=== PATIENT | male | born 1965 | race Caucasian/White ===

== ENCOUNTER 2017-04-05 11:43 | Inpatient (IN) | payer OTHER ==
[2017-04-05] MEDS ORDERED: SODIUM CHLORIDE 0.9% 1,000 ML IV STA ×2 (12:07→12:33)
[2017-04-05] MEDS ORDERED: IPRATROPIUM-ALBUTEROL 3 ML NEB INHALATION STA (12:07)
--- NOTE | 2017-04-05 12:07 | ED ---
Weakness HPI - General Chief complaint: Weakness Stated complaint: SOB Time Seen by Provider: 04/05/17 11:43 Source: patient, EMS, RN notes reviewed Mode of arrival: EMS Limitations: no limitations - History of Present Illness Initial comments: This is a 51-year-old male who presents by EMS with complaints of 4-5 days of shortness of breath which is gotten worse he has chronic lower extremity edema but recently more so on the right than the left he has wept for a long time. He states now he isn't having some marked dyspnea with a cab exertion or try to standing or chest pain with standing. Also states he hasn't eaten for the last 2 days. He states when he tries a standing feel like his blackout. He is nonsmoker denies any fevers chills or sweats. He was noted by EMS have a heart rate of 1 6170 and later dropped down to about 140. MD Complaint: generalized weakness, difficulty walking - Related Data Home Medications Medication Instructions Recorded Confirmed Citalopram Hydrobromide [CeleXA] 40 mg PO DAILY 04/05/17 04/05/17 Naproxen Sodium [Aleve] 220 mg PO DAILY PRN 04/05/17 04/05/17 Allergies Allergy/AdvReac Type Severity Reaction Status Date / Time No Known Allergies Allergy Verified 04/05/17 11:59 Review of Systems ROS Statement: Those systems with pertinent positive or pertinent negative responses have been documented in the HPI. ROS Other: All systems not noted in ROS Statement are negative. Past Medical History History of Any Multi-Drug Resistant Organisms: None Reported Past Surgical History: Cholecystectomy, Hernia Repair Past Psychological History: Anxiety Smoking Status: Former smoker Past Alcohol Use History: None Reported Past Drug Use History: None Reported General Exam - General Exam Comments Initial Comments: This a well-developed well-nourished obese male Limitations: no limitations General appearance: alert, in no apparent distress Head exam: Present: atraumatic, normocephalic, normal inspection Eye exam: Present: normal appearance, PERRL, EOMI. Absent: scleral icterus, conjunctival injection, periorbital swelling ENT exam: Present: mucous membranes dry Neck exam: Present: normal inspection. Absent: tenderness, meningismus, lymphadenopathy Respiratory exam: Present: respiratory distress, decreased breath sounds. Absent: wheezes, rales, rhonchi, stridor Cardiovascular Exam: Present: normal rhythm, tachycardia. Absent: systolic murmur, diastolic murmur, rubs, gallop, clicks GI/Abdominal exam: Present: soft, normal bowel sounds, other (Obese abdomen). Absent: distended, tenderness, guarding, rebound, rigid Extremities exam: Present: full ROM, normal capillary refill, other (Stasis changes with weeping noted edema to her lower extremities right greater than left with some mild tenderness palpation. No definite palpable cords). Absent : tenderness, pedal edema, joint swelling, calf tenderness Back exam: Present: normal inspection Neurological exam: Present: alert, oriented X3, CN II-XII intact Psychiatric exam: Present: normal affect, normal mood Skin exam: Present: warm. 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 EKG Findings - EKG Results: EKG: interpreted by VILMA, sinus rhythm (Sinus tachycardia with a rate of 136 MI interval 138 QRS duration 80 QT/QTC of 370/[address]-T wave configuration there is evidence of an S-wave in lead 1 Q-wave in lead 3 with some T-wave inversion.) Medical Decision Making - Medical Decision Making I did discuss the findings with the patient he does demonstrate pulmonary emboli. Ultrasound does show evidence for clot behind the right knee. He will be admitted with cardiology consultation I did discuss case with Dr. Herndon. A stat echocardiogram has been ordered. Patient be admitted to the telemetry floor. Cardiology will also be consulted. - Lab Data Result diagrams: 04/05/17 11:55 04/05/17 11:55 Lab Results 04/05/17 04/05/17 04/05/17 Range/Units 11:55 11:55 11:55 WBC 13.0 H (3.8-10.6) k/uL RBC 5.59 (4.30-5.90) m/uL Hgb 17.0 (13.0-17.5) gm/dL Hct 53.3 H (39.0-53.0) % MCV 95.4 (80.0-100.0) fL MCH 30.4 (25.0-35.0) pg MCHC 31.8 (31.0-37.0) g/dL RDW 13.9 (11.5-15.5) % Plt Count 318 (150-450) k/uL Neutrophils % 74 % Lymphocytes % 16 % Monocytes % 6 % Eosinophils % 1 % Basophils % 1 % Neutrophils # 9.7 H (1.3-7.7) k/uL Lymphocytes # 2.1 (1.0-4.8) k/uL Monocytes # 0.8 (0-1.0) k/uL Eosinophils # 0.1 (0-0.7) k/uL Basophils # 0.1 (0-0.2) k/uL PT (9.0-12.0) sec INR (<1.1) APTT (22.0-30.0) sec D-Dimer (<0.60) mg/L FEU Sodium (137-145) mmol/L Potassium (3.5-5.1) mmol/L Chloride (98-107) mmol/L Carbon Dioxide (22-30) mmol/L Anion Gap mmol/L BUN (9-20) mg/dL Creatinine (0.66-1.25) mg/dL Est GFR (MDRD) Af Amer (>60 ml/min/1.73 sqM) Est GFR (MDRD) Non-Af (>60 ml/min/1.73 sqM) Glucose (74-99) mg/dL Plasma Lactic Acid Hermilo 4.2 H* (0.7-2.0) mmol/L Calcium (8.4-10.2) mg/dL Magnesium (1.6-2.3) mg/dL Total Bilirubin (0.2-1.3) mg/dL AST (17-59) U/L ALT (21-72) U/L Alkaline Phosphatase (38-126) U/L Total Creatine Kinase 65 (55-170) U/L CK-MB (CK-2) 1.3 (0.0-2.4) ng/mL CK-MB (CK-2) Rel Index 2.0 Troponin I 0.126 H* (0.000-0.034) ng/mL NT-Pro-B Natriuret Pep pg/mL Total Protein (6.3-8.2) g/dL Albumin (3.5-5.0) g/dL 04/05/17 04/05/17 04/05/17 Range/Units 11:55 11:55 11:55 WBC (3.8-10.6) k/uL RBC (4.30-5.90) m/uL Hgb (13.0-17.5) gm/dL Hct (39.0-53.0) % MCV (80.0-100.0) fL MCH (25.0-35.0) pg MCHC (31.0-37.0) g/dL RDW (11.5-15.5) % Plt Count (150-450) k/uL Neutrophils % % Lymphocytes % % Monocytes % % Eosinophils % % Basophils % % Neutrophils # (1.3-7.7) k/uL Lymphocytes # (1.0-4.8) k/uL Monocytes # (0-1.0) k/uL Eosinophils # (0-0.7) k/uL Basophils # (0-0.2) k/uL PT 12.3 H (9.0-12.0) sec INR 1.2 (<1.1) APTT 24.4 (22.0-30.0) sec D-Dimer 4.62 H (<0.60) mg/L FEU Sodium 142 (137-145) mmol/L Potassium 4.6 (3.5-5.1) mmol/L Chloride 106 (98-107) mmol/L Carbon Dioxide 17 L (22-30) mmol/L Anion Gap 19 mmol/L BUN 19 (9-20) mg/dL Creatinine 1.40 H (0.66-1.25) mg/dL Est GFR (MDRD) Af Amer >60 (>60 ml/min/1.73 sqM) Est GFR (MDRD) Non-Af 53 (>60 ml/min/1.73 sqM) Glucose 181 H (74-99) mg/dL Plasma Lactic Acid Hermilo (0.7-2.0) mmol/L Calcium 9.6 (8.4-10.2) mg/dL Magnesium 2.3 (1.6-2.3) mg/dL Total Bilirubin 1.1 (0.2-1.3) mg/dL AST 45 (17-59) U/L ALT 46 (21-72) U/L Alkaline Phosphatase 125 (38-126) U/L Total Creatine Kinase (55-170) U/L CK-MB (CK-2) (0.0-2.4) ng/mL CK-MB (CK-2) Rel Index Troponin I (0.000-0.034) ng/mL NT-Pro-B Natriuret Pep 6040 pg/mL Total Protein 8.7 H (6.3-8.2) g/dL Albumin 4.4 (3.5-5.0) g/dL - Radiology Data Radiology results: report reviewed (I did discuss the imaging and results with the radiologist. Patient does demonstrate bilateral pulmonary embolus.), image reviewed Critical Care Time Critical Care Time: Yes Critical Care Time: 43 minutes of critical care time which includes initial presentation with evaluation of the report from paramedics discussion with paramedics history physical labs x-rays. Discussion with radiologist discuss with the admitting physician discussion with the feather boner. Admission orders and documentation of the above. Disposition Clinical Impression: Pulmonary embolism, Pulmonary embolism, Congestive heart failure (CHF), Elevated troponin, DVT (deep venous thrombosis), Tachycardia Disposition: ADMITTED IP TO THIS HOSP Condition: Serious
[2017-04-05 12:14] LABS: Basophils # (A) 0.1 k/uL (0-0.2); Basophils % (A) 1 %; CHCM 32.6; Eosinophils # (A) 0.1 k/uL (0-0.7); Eosinophils % (A) 1 %; HCT 53.3 % (39.0-53.0); HDW 2.47; Luc # (Auto) 0.22; Luc % (Auto) 2; Lymphocytes # (A) 2.1 k/uL (1.0-4.8); Lymphocytes % (A) 16 %; MCH 30.4 pg (25.0-35.0); MCHC 31.8 g/dL (31.0-37.0); MCV 95.4 fL (80.0-100.0); Mean Platelet Volume 7.4; Monocytes # (A) 0.8 k/uL (0-1.0); Monocytes % (A) 6 %; Neutrophils # (A) 9.7 k/uL (1.3-7.7); Neutrophils % (A) 74 %; RBC 5.59 m/uL (4.30-5.90); RDW 13.9 % (11.5-15.5); WBC (Perox) 13.59
[2017-04-05 12:29] LABS: ALT 46 U/L (21-72); AST 45 U/L (17-59); Alkaline Phosphatase 125 U/L (38-126); Anion Gap 19 mmol/L; Blood Urea Nitrogen 19 mg/dL (9-20); Calcium 9.6 mg/dL (8.4-10.2); Carbon Dioxide 17 mmol/L (22-30); Chloride 106 mmol/L (98-107); Glucose 181 mg/dL (74-99); Magnesium 2.3 mg/dL (1.6-2.3); Non-African American GFR(MDRD) 53 (>60 ml/min/1.73 sqM); Potassium 4.6 mmol/L (3.5-5.1); Sodium 142 mmol/L (137-145); Total Bilirubin 1.1 mg/dL (0.2-1.3); Total Protein 8.7 g/dL (6.3-8.2)
[2017-04-05 12:30] LABS: INR 1.2 (<1.1); Partial Thromboplastin Time 24.4 sec (22.0-30.0); Prothrombin Time 12.3 sec (9.0-12.0)
[2017-04-05 12:49] LABS: Creatine Kinase MB 1.3 ng/mL (0.0-2.4)
[2017-04-05 12:53] LABS: Troponin I 0.126 ng/mL (0.000-0.034)
[2017-04-05] MEDS ORDERED: RX INFO: IV CONTRAST WAS GIVEN 1 EACH MISC MISCELLANE PRN (12:55)
--- NOTE | 2017-04-05 13:11 | XR ---
EXAMINATION TYPE: XR chest 2V DATE OF EXAM: 04/05/2017 1:04 PM COMPARISON: NONE HISTORY: Difficulty breathing TECHNIQUE: Frontal and lateral views of the chest are obtained. FINDINGS: There is no heart failure nor confluent pneumonic infiltrate. Heart appears enlarged. Ther e is no pleural effusion. There are no hilar masses. There are chest leads. IMPRESSION: Cardiomegaly. No active cardiopulmonary disease.
--- NOTE | 2017-04-05 13:47 | CT ---
EXAMINATION TYPE: CT angio chest DATE OF EXAM: 04/05/2017 1:36 PM COMPARISON: NONE HISTORY: Difficulty breathing CT DLP: 777.3 mGycm Automated exposure control for dose reduction was used. CONTRAST: CTA scan of the thorax is performed with IV Contrast, patient injected with 80 mL of Visipaque 320, p ulmonary embolism protocol. There are 3-D post processed images.. FINDINGS: The lungs are clear of consolidation. There is no evidence of a pulmonary mass. There is focal atelec tasis at the left posterior lung base. There are numerous filling defects in the lower lobe pulmonary arteries. These extend up to the right main pulmonary artery. There are also filling defects in the left upper lobe and right upper lobe pu lmonary arteries. The heart is enlarged. There is no pericardial effusion. There is no mediastinal ad enopathy. There are no hilar masses. IMPRESSION: EXTENSIVE BILATERAL LARGE PULMONARY EMBOLI. THIS EXAM WAS DISCUSSED WITH DR. TOMAS 1:45 PM.
[2017-04-05] MEDS ORDERED: HEPARIN SODIUM,PORCINE 5,000 UNIT/ML 1 ML VIAL IV STA (14:09)
[2017-04-05] MEDS: HEPARIN SODIUM,PORCINE/D5W PMX 25,000 UNIT in DEXTROSE/WATER 1 500ML.BAG IV SCH (14:44)
--- NOTE | 2017-04-05 15:17 | US ---
EXAMINATION TYPE: US venous doppler duplex LE DATE OF EXAM: 04/05/2017 2:58 PM COMPARISON: NONE CLINICAL HISTORY: Pain. Leg swelling, PE SIDE PERFORMED: Bilateral TECHNIQUE: The lower extremity deep venous system is examined utilizing real time linear array sonog shantell with graded compression, doppler sonography and color-flow sonography. VESSELS IMAGED: External Iliac Vein (EIV) Common Femoral Vein Deep Femoral Vein Greater Saphenous Vein * Femoral Vein Popliteal Vein Small Saphenous Vein * Proximal Calf Veins (* superficial vessels) Difficult, limited exam, morbidly obese pt Right Leg: +DVT Right Pop Vein Left Leg: Negative for DVT IMPRESSION: There is evidence of right popliteal vein acute deep venous thrombosis. No evidence of deep venous thrombosis in the left leg.
[2017-04-05] MEDS ORDERED: NALOXONE 0.4 MG/ML 1 ML VIAL IV PRN (15:31)
[2017-04-05] MEDS: IPRATROPIUM-ALBUTEROL 3 ML NEB INHALATION SCH ×2 (16:45→19:51)
[2017-04-05] MEDS ORDERED: METOPROLOL TARTRATE 5 MG/5 ML VIAL IVP ONE (16:51)
[2017-04-05] MEDS: NITROGLYCERIN OINT 1 INCH/GM PACKET TOPICAL SCH (17:07)
[2017-04-05] MEDS: FUROSEMIDE 10 MG/ML 4 ML VIAL IV SCH (17:11)
[2017-04-05] MEDS ORDERED: ONDANSETRON 4 MG/2 ML VIAL IVP PRN ×2 (17:25→17:26)
[2017-04-06] MEDS ORDERED: IPRATROPIUM-ALBUTEROL 3 ML NEB INHALATION PRN (00:02)
[2017-04-06] MEDS: INSULIN LISPRO (humaLOG) 300 UNIT/3 ML VIAL SQ SCH ×6 (02:06→21:10)
[2017-04-06] MEDS: FUROSEMIDE 10 MG/ML 4 ML VIAL IV SCH ×3 (02:07→16:19)
[2017-04-06] MEDS: PIPERACILLIN-TAZOBACTAM 3.375 GM in DEXTROSE/WATER 1 50ML.BAG IVPB SCH ×4 (02:08→20:44)
[2017-04-06] MEDS: SODIUM CHLORIDE 0.9% 1,000 ML IV SCH ×2 (02:08→16:20)
[2017-04-06 02:14] LABS: Glucose,Whole Blood 129 mg/dL (75-99)
[2017-04-06] MEDS: NITROGLYCERIN OINT 1 INCH/GM PACKET TOPICAL SCH ×4 (02:17→18:17)
[2017-04-06] MEDS: IPRATROPIUM-ALBUTEROL 3 ML NEB INHALATION SCH ×5 (02:20→20:30)
[2017-04-06 06:19] LABS: Glucose,Whole Blood 136 mg/dL (75-99)
[2017-04-06 06:28] LABS: Basophils # (A) 0.1 k/uL (0-0.2); Basophils % (A) 1 %; CH 30.7; CHCM 32.3; Eosinophils # (A) 0.1 k/uL (0-0.7); Eosinophils % (A) 1 %; HCT 44.3 % (39.0-53.0); HDW 2.47; HGB 14.2 gm/dL (13.0-17.5); Luc # (Auto) 0.25; Luc % (Auto) 2; Lymphocytes # (A) 2.1 k/uL (1.0-4.8); Lymphocytes % (A) 19 %; MCH 30.5 pg (25.0-35.0); MCV 95.3 fL (80.0-100.0); Mean Platelet Volume 7.5; Monocytes # (A) 0.9 k/uL (0-1.0); Monocytes % (A) 8 %; Neutrophils # (A) 7.7 k/uL (1.3-7.7); Neutrophils % (A) 69 %; RBC 4.65 m/uL (4.30-5.90); RDW 13.9 % (11.5-15.5); WBC 11.2 k/uL (3.8-10.6); WBC (Perox) 11.49
[2017-04-06 06:47] LABS: Anion Gap 11 mmol/L; Blood Urea Nitrogen 19 mg/dL (9-20); Calcium 8.5 mg/dL (8.4-10.2); Carbon Dioxide 26 mmol/L (22-30); Chloride 105 mmol/L (98-107); Glucose 126 mg/dL (74-99); Non-African American GFR(MDRD) 58 (>60 ml/min/1.73 sqM); Potassium 4.1 mmol/L (3.5-5.1); Sodium 142 mmol/L (137-145)
[2017-04-06] MEDS ORDERED: PANTOPRAZOLE 40 MG/10 ML VIAL IV SCH (09:00)
[2017-04-06] MEDS: CITALOPRAM HYDROBROMIDE 20 MG TAB PO SCH (09:26)
[2017-04-06] MEDS: HEPARIN SODIUM,PORCINE/D5W PMX 25,000 UNIT in DEXTROSE/WATER 1 500ML.BAG IV SCH ×2 (09:35→16:18)
--- NOTE | 2017-04-06 09:42 | ECHOF ---
Referral Reason:Pulmonary embolism MEASUREMENTS -------- HEIGHT: 157.5 cm WEIGHT: 162.4 kg BP: IVSd: 1.4 cm (0.6 - 1.1) LVIDd: 3.9 cm (3.9 - 5.3) LVPWd: 1.3 cm (0.6 - 1.1) LVIDs: 3.2 cm RVIDd: 4.3 cm (< 3.3) Ao Diam: 3.6 cm (2.0 - 3.7) LA Diam: 4.4 cm (2.7 - 3.8) AV Cusp: 2.2 cm (1.5 - 2.6) EPSS: 0.2 cm RAP: 15.00 mmHg RVSP: 72.83 mmHg MV EF SLOPE: 198.97 mm/s (70 - 150) MV EXCURSION: 20.61 mm (> 18.000) FINDINGS -------- Sinus rhythm. This was a technically adequate study. Morbid Obesity There is moderate concentric left ventricular hypertrophy. Overall left ventricular systolic function is low-normal with, an EF between 50 - 55 %. The right ventricle is severely enlarged. The right ventricular septal wall is flattened in diastole and systole which is consistent with right ventricular volume and pressure overload. The left atrial size is normal. The right atrial size is normal. There is mild aortic valve sclerosis. There is no evidence of aortic regurgitation. Mild mitral annular calcification present. No mitral regurgitation. Mild tricuspid regurgitation present. There is severe pulmonary hypertension. The right ventricular systolic pressure, as measured by Doppler, is 72.83mmHg. The pulmonic valve was not well visualized. The aortic root size is normal. Echo free space may represent effusion or a pericardial fat pad. CONCLUSIONS -------- 1. Morbid Obesity 2. There is severe pulmonary hypertension. 3. The right ventricular systolic pressure, as measured by Doppler, is 72.83mmHg. 4. The pulmonic valve was not well visualized. 5. Echo free space may represent effusion or a pericardial fat pad. 6. There is moderate concentric left ventricular hypertrophy. 7. Overall left ventricular systolic function is low-normal with, an EF between 50 - 55 %. 8. The right ventricle is severely enlarged. 9. The right ventricular septal wall is flattened in diastole and systole which is consistent with right ventricular volume and pressure overload. 10. There is mild aortic valve sclerosis. 11. Mild mitral annular calcification present. 12. No mitral regurgitation. 13. Mild tricuspid regurgitation present. WEB PROJECT MANAGER: Tiarra Gonzalez RDCS
--- NOTE | 2017-04-06 09:44 | P.CRDCN ---
History of Present Illness Consult date: 04/06/17 History of present illness: This is a 51-year-old gentleman with history of anxiety, obesity and chronic cellulitis of the legs was been experiencing increasing shortness of breath over the last several months. For the last couple of days patient has been having episodes of dizziness. Because of the ongoing symptoms patient came to the emergency room. Apparently while in the emergency room patient had a brief episode of syncope lasting a few seconds. Patient had a computed tomography scan of the chest which showed evidence of pulmonary emboli. Patient was started on heparin and was admitted to the hospital. He seemed to be fairly comfortable at this time. Denies any significant chest pain. He does complain of mild discomfort upon deep breathing. Patient has been sitting and sleeping in a recliner for a long time because of difficulty sleeping flat. Chest x-ray did not reveal any acute changes. Echocardiogram showed preserved LV function with a severe right ventricular dilatation and severe pulmonary hypertension. I would recommend continuation of current medical therapy. Repeat echocardiogram next week Review of Systems As per the chart Past Medical History Additional Past Medical History / Comment(s): x-smoker History of Any Multi-Drug Resistant Organisms: None Reported Past Surgical History: Cholecystectomy, Hernia Repair Past Anesthesia/Blood Transfusion Reactions: No Reported Reaction Past Psychological History: Anxiety Smoking Status: Former smoker Past Alcohol Use History: None Reported Past Drug Use History: None Reported - Past Family History Brother(s) Family Medical History: Pulmonary Embolus Additional Family Medical History / Comment(s): CABG Medications and Allergies Home Medications Medication Instructions Recorded Confirmed Type Citalopram Hydrobromide [CeleXA] 40 mg PO DAILY 04/05/17 04/05/17 History Naproxen Sodium [Aleve] 220 mg PO DAILY PRN 04/05/17 04/05/17 History Allergies Allergy/AdvReac Type Severity Reaction Status Date / Time No Known Allergies Allergy Verified 04/05/17 11:59 Physical Exam Vitals: Vital Signs Temp Pulse Pulse Resp BP BP Pulse Ox 04/06/17 08:20 100 04/06/17 08:01 104 H 93 L 04/06/17 08:00 97.4 F L 18 123/70 93 L 04/06/17 04:00 99 18 123/79 92 L 04/06/17 00:00 107 H 18 121/76 93 L 04/05/17 20:02 120 H 04/05/17 20:00 116 H 18 129/69 04/05/17 19:52 120 H 04/05/17 18:54 97.4 F L 117 H 18 129/68 93 L 04/05/17 18:44 117 H 18 129/68 93 L 04/05/17 18:34 97.4 F L 110 H 22 144/69 93 L 04/05/17 18:04 117 H 18 136/73 91 L 04/05/17 17:22 116 H 18 170/83 99 04/05/17 16:52 134 H 04/05/17 16:45 135 H 04/05/17 16:03 132 H 18 145/86 96 Intake and Output 04/05/17 04/06/17 04/06/17 22:59 06:59 14:59 Intake Total 500 Output Total 400 Balance 100 Intake: Intake, IV Titration 500 Amount Heparin Sodium,Porcine/ 500 D5w Pmx 25,000 unit In Dextrose/Water 1 500ml. bag @ 14.1 UNITS/KG/HR 45 .93 mls/hr IV .[id number] [facility] Rx#:[id number] Output: Urine 400 Other: Voiding Method Urinal Weight 162.9 kg 167.2 kg GENERAL EXAM: Patient is alert and oriented and doesn't appear to be in any acute distress HEENT: Normocephalic. Normal reaction of pupils, equal size, normal range of extraocular motion. No erythema or exudates in the throat. NECK: No masses, no nuchal rigidity. CHEST: No chest wall deformity. LUNGS: Equal air entry . Diminished breath sounds at both bases HEART: S1 and S2 normal with no audible mumurs or gallops. Regular rhythm, femorals equal on both sides.. ABDOMEN: No hepatosplenomegaly, normal bowel sounds, no guarding or rigidity. SKIN: No rashes CENTRAL NERVOUS SYSTEM: No focal deficits. EXTREMITIES: Edema of the both legs with chronic cellulitis and excoriations Results 04/06/17 05:44 04/06/17 05:44 Cardiac Enzymes 04/06/17 04/06/17 Range/Units 00:19 05:44 Troponin I 0.109 H* 0.104 H* (0.000-0.034) ng/mL Coagulation 04/05/17 04/06/17 Range/Units 21:00 06:14 APTT 80.5 H 74.8 H (22.0-30.0) sec CBC 04/06/17 Range/Units 05:44 WBC 11.2 H (3.8-10.6) k/uL RBC 4.65 (4.30-5.90) m/uL Hgb 14.2 (13.0-17.5) gm/dL Hct 44.3 (39.0-53.0) % Plt Count 251 (150-450) k/uL Comprehensive Metabolic Panel 04/06/17 Range/Units 05:44 Sodium 142 (137-145) mmol/L Potassium 4.1 (3.5-5.1) mmol/L Chloride 105 (98-107) mmol/L Carbon Dioxide 26 (22-30) mmol/L BUN 19 (9-20) mg/dL Creatinine 1.30 H (0.66-1.25) mg/dL Glucose 126 H (74-99) mg/dL Calcium 8.5 (8.4-10.2) mg/dL Current Medications Generic Name Dose Route Start Last Admin Trade Name Freq PRN Reason Stop Dose Admin Albuterol/Ipratropium 3 ml 04/06/17 00:02 Duoneb 0.5 Mg-3 Mg/3 Ml Soln INHALATION RT-QID PRN Shortness Of Breath Or Wheezing Albuterol/Ipratropium 3 ml 04/06/17 08:00 04/06/17 08:00 Duoneb 0.5 Mg-3 Mg/3 Ml Soln INHALATION 3 ml RT-QID GIOVANNY Administration Citalopram Hydrobromide 40 mg 04/06/17 09:00 04/06/17 09:26 Celexa PO 40 mg DAILY GIOVANNY Administration Furosemide 40 mg 04/05/17 16:00 04/06/17 09:26 Lasix IV 40 mg Q8HR GIOVANNY Administration Heparin Sodium/Dextrose 25,000 500 mls @ 45.93 mls/hr 04/05/17 14:15 09:35 unit/ IV Solution IV Not Given .[id number] GIOVANNY Protocol 14.1 UNITS/KG/HR Sodium Chloride 1,000 mls @ 20 mls/hr 04/05/17 15:45 04/06/17 02:08 Saline 0.9% IV 20 mls/hr .Q24H GIOVANNY Administration Piperacillin/Tazobactam/ 50 mls @ 12.5 mls/hr 04/05/17 20:00 04/06/17 07:07 Dextrose 3.375 gm/ IV Solution IVPB Not Given Q8H [facility] Insulin Human Lispro 0 unit 04/05/17 17:30 04/06/17 07:27 Humalog SQ Not Given ACHS [facility] Protocol Miscellaneous Information 1 each 04/05/17 12:55 04/05/17 14:49 Rx Info: Iv Contrast Was Given MISCELLANE 04/07/17 12:55 1 each DAILY PRN Administration Per Protocol Naloxone HCl 0.2 mg 04/05/17 15:31 Narcan IV Q2M PRN Opioid Reversal Nitroglycerin 1 inch 04/05/17 18:00 04/06/17 07:07 Nitro-Bid Oint TOPICAL Not Given Q6HR [facility] Ondansetron HCl 4 mg 04/05/17 17:25 04/05/17 17:26 Zofran IVP 4 mg ONCE PRN Administration Nausea And Vomiting Ondansetron HCl 4 mg 04/05/17 17:26 Zofran IVP Q8HR PRN Nausea And Vomiting Pantoprazole Sodium 40 mg 04/06/17 09:00 04/06/17 09:27 Protonix IV 40 mg DAILY GIOVANNY Administration Intake and Output 04/05/17 04/06/17 04/06/17 22:59 06:59 14:59 Intake Total 500 Output Total 400 Balance 100 Intake: Intake, IV Titration 500 Amount Heparin Sodium,Porcine/ 500 D5w Pmx 25,000 unit In Dextrose/Water 1 500ml. bag @ 14.1 UNITS/KG/HR 45 .93 mls/hr IV .[id number] [facility] Rx#:[id number] Output: Urine 400 Other: Voiding Method Urinal Weight 162.9 kg 167.2 kg 04/06/17 05:44 04/06/17 05:44 EKG Interpretations (text) Sinus tachycardia Assessment and Plan (1) Obesity Status: Acute (2) DVT (deep venous thrombosis) Status: Acute (3) Elevated troponin Status: Acute (4) Pulmonary embolism Status: Acute (5) Chronic cellulitis Status: Acute Plan: Continue current treatment with anticoagulants. Diuretics and antibiotics to be continued. Repeat echocardiogram next week. Further recommendations depend upon the clinical course
[2017-04-06 11:24] LABS: Hemoglobin A1C 5.5 % (4.2-6.1)
[2017-04-06 11:47] LABS: Glucose,Whole Blood 135 mg/dL (75-99)
--- NOTE | 2017-04-06 15:39 | HP ---
DATE OF ADMISSION: CHIEF COMPLAINT: Short of breath. HISTORY OF PRESENT ILLNESS: Mr. Rowley is a 51-year-old male with a known history of bilateral lower extremity lymphedema, depression, who came to the ER with complaints of shortness of breath for the past 4 to 5 days. Patient is also complaining of dizziness. Denied any complaints of chest pain. Patient came to the hospital for evaluation. Patient has been having bilateral lower extremity lymphedema for the past 4 to 5 years. His lower extremity edema is also getting worse, right more than left. Patient was also having exertional shortness of breath. He also says that he has not eaten for the past 2 days. When he tries to stand he feels like blacking out. Patient denied any fever, chills. No recent illnesses. Patient is unable to lay flat on the back. No history of diaphoresis. Patient was also tachycardic when the EMS picked him up. Patient had a CT angiogram of the chest done, which showed extensive bilateral large pulmonary emboli. Patient was started on heparin drip and patient also having lactic acidosis. Patient is on IV fluids as well. REVIEW OF SYSTEMS: CONSTITUTIONAL: No fever. No chills. No weakness, malaise. RESPIRATORY: No cough or sputum production. Patient does have short of breath and exertional short of breath. CARDIOVASCULAR: Chest pain and dizziness and worsening leg swelling. ABDOMEN: No nausea, vomiting, or abdominal pain. No diarrhea. GENITOURINARY: Negative. ENDOCRINE: Negative PSYCHIATRY: Negative. SKIN: Negative. All other fourteen-point review of systems negative except as above. PAST MEDICAL HISTORY: Bilateral lower lymphedema and depression. PAST SURGICAL HISTORY: Cholecystectomy and hernia repair. PSYCHOSOCIAL HISTORY: Anxiety. SOCIAL HISTORY: Patient is a former smoker; quit smoking several years ago. Denied any alcohol use. Denied any drugs or IVDU. FAMILY HISTORY: Denied any history of hypertension or diabetes mellitus or history of blood clots in the family. ALLERGIES: No known drug allergies. Home medications include: Celexa and Aleve. PHYSICAL EXAMINATION: A 51-year-old male lying in the bed comfortably, awake, alert, oriented, x3, appears to be in mild distress. VITALS: Blood pressure is 129/63, pulse is 116, respirations 18, temperature afebrile, pulse ox is 93% on 4-liters nasal cannula. HEENT: Atraumatic, normocephalic. Neck is supple. No JVD. CVS: S1, S2 heard. No murmurs, no gallop. LUNGS: Bilateral air entry is present. No wheezing noted. Nonlabored breathing. ABDOMEN: Soft, obese. Bowel sounds are present. 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 No focal deficits. EXTREMITIES: Bilateral lower extremity lymphedema right greater than left. PSYCHIATRIC: Cooperative. LABORATORY DATA: WBC 13.3, hemoglobin 17.0, platelets 319, D-dimer 4.62. INR 1.2. Sodium 142, potassium 4.2, chloride 106, bicarb is 17, BUN 19, creatinine 1.4, lactic acid 4.2, came down to 2.9. Troponin 0.126. NT-proBNP is 6040. IMPRESSION: 1. Acute bilateral large pulmonary emboli. 2. Acute right popliteal vein deep venous thrombosis. 3. Morbid obesity. 4. Bilateral lower extremity lymphedema. 5. Lactic acidosis. 6. Acute kidney injury. 7. Elevated troponin level, likely due to pulmonary emboli. 8. Elevated BNP. 9. History of depression. DISCUSSION AND PLAN: Patient is [id number] male who has not followed with primary care physician for the past 5 years, came to the hospital with complaints of dizziness and shortness of breath along with leg swelling, right greater than left. Patient was tachycardic on admission and hypoxic. Patient was found to have large pulmonary emboli. Will continue with the heparin IV. 2-D echocardiogram was ordered. Cardiology and Pulmonary have been consulted. Will continue with the heparin and follow up closely. Further recommendations based on clinical course.
[2017-04-06 17:20] LABS: Glucose,Whole Blood 135 mg/dL (75-99)
[2017-04-06] MEDS ORDERED: ACETAMINOPHEN TAB 325 MG TAB PO PRN (18:58)
[2017-04-06] MEDS: DIPHENOX-ATROP 2.5-0.025 MG 1 EACH TAB PO PRN (20:45)
[2017-04-06 20:54] LABS: Glucose,Whole Blood 119 mg/dL (75-99)
--- NOTE | 2017-04-06 22:18 | CONS ---
DATE OF CONSULTATION: 04/06/2017 This is a 51-year-old gentleman who apparently came to the emergency room complaining of 4 to 5 days' worth of increasing and progressive shortness of breath. In addition, he had worsening lower extremity edema. It was more right than left right-sided. He is not particularly active. He has been sleeping in a [place] for a number of years. He denies any recent long trips such as car rides, boat rides, plane rides or train rides or anything like that. He has had no trauma to the legs per se. No recent surgeries. The patient states that he came into the emergency room because of the leg swelling and shortness of breath. Some mild chest discomfort. No fever, no chills. No cough. No phlegm production. Feeling much better today than he did yesterday when he first came in. I was called by Dr. Gonzales in the emergency room and we discussed the case. His home medications include Celexa and Aleve. ALLERGIES: None. It should be pointed out, he has not been to a doctor in 10 or 11 years. The only doctor he sees is Dr. Manuel who is a psychiatrist who treats him for anxiety and depression. Medical history is otherwise unremarkable. Surgical history with previous hernia repair and cholecystectomy, although neither of those surgeries are recent. SOCIAL HISTORY: Positive for previous tobacco use. No alcohol use. No illicit drug use. FAMILY HISTORY: Noncontributory. OCCUPATIONAL HISTORY: Noncontributory. REVIEW OF SYSTEMS: CONSTITUTIONAL: Negative. NEUROLOGICAL: Negative. HEENT: Negative. CARDIOVASCULAR: Mild chest discomfort. PULMONARY: Shortness of breath. GI/: Negative. RHEUMATOLOGIC/IMMUNOLOGIC: Negative. ENDOCRINOLOGIC: Negative. Current vital signs include temperature 97.4, heart 99, respiratory rate 18, blood pressure 123/70, mean 87, 4 L saturation 93%. Feeling much much better today. He was always hemodynamically stable. His only issue was some tachycardia. No respiratory issues to speak of since he has been here. HEENT examination is grossly unremarkable. Mucous membranes are moist. No oral lesions. Neck is supple. Full range of motion. No adenopathy or thyromegaly. Cardiovascular examination reveals irregular rhythm and rate. His heart rate is about 90 beats per minute currently. S1, S2 normal. No murmur. He does not have pronounced second heart sound or the second component of the second heart sound is not pronounced. Lungs are clear. Breath sounds are equal. No wheezes, rhonchi or crackles. Abdomen is soft. Bowel sounds are heard. Extremities are intact. The right lower extremity is a bit more edematous than the left side. Some tenderness to palpation, particularly in the right popliteal space. Skin is without rash or lesion. Neurologic examination is nonfocal. Lab-weber, white count 11.2, hemoglobin 14.0, hematocrit 44.3, platelet count 351,000. His PTT is 75. D-dimer 4.62 PT 12.3. Sodium, potassium, chloride and CO2 normal. BUN and creatinine were 19 and 1.3. Plasma lactic acid was 2.9 initially. Troponins were 0.126 and 0.104. NT proBNP 6040. Albumin 4.4. The patient had a chest x-ray which showed cardiomegaly, but no active disease. He had a venous Doppler which showed no evidence of left-sided DVT, but there was a right-sided DVT in the right popliteal vein. CT angiogram showed evidence of extensive bilateral, large pulmonary emboli. There was no evidence of right heart strain. The interventricular septum did not shift. An echocardiogram showed severe pulmonary hypertension with a right ventricular systolic pressure estimated to be 73 mmHg. There was some moderate concentric left ventricular hypertrophy. Overall ejection fraction of 50 to 55%. The right ventricle was enlarged. The right ventricular septal wall was flat in diastole and systole, which was consistent with right ventricular volume and pressure overload. Medications are reviewed. He is on Celexa, Lasix, IV fluids, IV heparin, NovoLog sliding scale, updrafts with DuoNeb, nitroglycerin ointment, Zofran, Protonix, Zosyn and basic IV. I am not sure why the patient is on Zosyn and that can probably be discontinued. ASSESSMENT: 1. Bilateral pulmonary emboli. 2. Right-sided DVT involving the right popliteal vein. 3. No healthcare in the last 10 or 11 years. 4. History of anxiety and depression for which the patient sees a psychiatrist. PLAN: The patient is very stable. The patient was stable in the ER. We did consider thrombolytics. We do not have the echocardiogram until today. The patient, as I mentioned, was very stable. Blood pressure has always been good. At this point, I do not know if it worthwhile giving him a thrombolytic. The patient is clinically well. No breathing issues. His heart rate has come down very nicely. Will continue to follow closely. We did talk about treatment. I thought the patient should be treated for 6 months. Additional recommendations and suggestions are forthcoming.
[2017-04-07] MEDS: FUROSEMIDE 10 MG/ML 4 ML VIAL IV SCH ×3 (00:45→15:51)
[2017-04-07] MEDS: HEPARIN SODIUM,PORCINE/D5W PMX 25,000 UNIT in DEXTROSE/WATER 1 500ML.BAG IV SCH ×3 (00:46→21:00)
[2017-04-07] MEDS: NITROGLYCERIN OINT 1 INCH/GM PACKET TOPICAL SCH ×4 (00:55→17:14)
[2017-04-07] MEDS: PIPERACILLIN-TAZOBACTAM 3.375 GM in DEXTROSE/WATER 1 50ML.BAG IVPB SCH ×3 (05:21→20:59)
[2017-04-07] MEDS: DIPHENOX-ATROP 2.5-0.025 MG 1 EACH TAB PO PRN ×3 (05:26→20:59)
[2017-04-07 06:07] LABS: Basophils # (A) 0.1 k/uL (0-0.2); Basophils % (A) 1 %; CH 30.7; CHCM 32.1; Eosinophils # (A) 0.2 k/uL (0-0.7); Eosinophils % (A) 2 %; HCT 46.1 % (39.0-53.0); HDW 2.48; HGB 14.5 gm/dL (13.0-17.5); Luc # (Auto) 0.18; Luc % (Auto) 2; Lymphocytes # (A) 2.2 k/uL (1.0-4.8); Lymphocytes % (A) 21 %; MCH 30.3 pg (25.0-35.0); MCHC 31.5 g/dL (31.0-37.0); MCV 96.1 fL (80.0-100.0); Mean Platelet Volume 7.5; Monocytes # (A) 0.6 k/uL (0-1.0); Monocytes % (A) 6 %; Neutrophils % (A) 68 %; RDW 13.8 % (11.5-15.5); WBC 10.3 k/uL (3.8-10.6); WBC (Perox) 10.38
[2017-04-07 06:23] LABS: Glucose,Whole Blood 127 mg/dL (75-99)
[2017-04-07 06:29] LABS: Calcium 8.7 mg/dL (8.4-10.2); Potassium 4.1 mmol/L (3.5-5.1)
[2017-04-07] MEDS: INSULIN LISPRO (humaLOG) 300 UNIT/3 ML VIAL SQ SCH ×2 (06:29→12:29)
[2017-04-07] MEDS: PANTOPRAZOLE 40 MG TABLET PO SCH (06:34)
[2017-04-07] MEDS: CITALOPRAM HYDROBROMIDE 20 MG TAB PO SCH (08:10)
[2017-04-07] MEDS: IPRATROPIUM-ALBUTEROL 3 ML NEB INHALATION SCH ×6 (09:55→20:21)
[2017-04-07 10:01] VITALS: BMI 47.1
[2017-04-07 11:51] LABS: Glucose,Whole Blood 112 mg/dL (75-99)
--- NOTE | 2017-04-07 15:46 | P.PN ---
Subjective Morbidly obese 51-year-old male patient who presented with a increased shortness of breath. The patient had progressive dyspnea. The patient lives a sedentary lifestyle. He has chronic lower extremity edema and chronic venous stasis and some superficial ulceration of the skin. The patient underwent investigated further and as part of investigation CT angios the chest was done and the patient was found to have bilateral pulmonary emboli. In addition, the patient was found to have a right popliteal DVT that was acute based on the ultrasound Doppler of the lower extremities. There was no evidence of any DVT in the left lower extremity. The CAT scan of the chest showed extensive bilateral pulmonary emboli and the Echocardiogram of the heart showed strain pattern involving the right ventricle along with pulmonary hypertension. The PA pressure was 72. Ejection fraction was 50-45%. There is evidence of severe pulmonary hypertension. The patient was seen by Dr. Herndon on no recommendations were done for Mary lytics and the patient was placed on IV heparin. He is free of any chest pain. He is still tachycardic and is having some exertional dyspnea. His current heart rate is 105 and regular. Pulse ox is around 96% on 3 L of oxygen by nasal cannula. No personal history of DVT or pulmonary embolism. Objective - Vital Signs Vital signs: Vital Signs Temp 96 F L 04/07/17 08:00 Pulse 105 H 04/07/17 11:24 Resp 18 04/07/17 11:23 BP 115/69 04/07/17 11:23 Pulse Ox 96 04/07/17 11:23 Intake & Output 04/06/17 04/07/17 04/07/17 18:59 06:59 18:59 Intake Total 1062.206 390 Output Total 3975 800 Balance -3975 262.206 390 Weight 167.2 kg 166.6 kg 166.6 kg Intake: Intake, IV Titration 702.206 210 Amount Heparin Sodium,Porcine/ 652.206 D5w Pmx 25,000 unit In Dextrose/Water 1 500ml. bag @ 14.1 UNITS/KG/HR 45 .93 mls/hr IV .[id number] [facility] Rx#:[id number] Piperacillin-Tazobactam 3 50 50 .375 gm In Dextrose/Water 1 50ml.bag @ 12.5 mls/hr IVPB Q8H [facility] Rx#: [id number] Sodium Chloride 0.9% 1, 160 000 ml @ 20 mls/hr IV . Q24H [facility] Rx#:[id number] Oral 360 180 Output: Urine 3975 800 Other: Voiding Method Urinal Urinal # Voids 3 2 # Bowel Movements 1 - Exam Morbidly obese, comfortable and mild to moderate degree of respiratory distress with minimal amount of activity.Head exam was generally normal. There was no scleral icterus or corneal arcus. Mucous membranes were moist. Neck is short and supple and there is significant crowding of the posterior oropharynx. There is no goiter or neck masses. Lungs sounds are diminished in lung bases bilaterally otherwise they're distant. Heart sounds are regular and tachycardic , positive S1 and S2 and there is no significant murmurs appreciated. Abdomen is obese soft nontender and organs cannot be accurately palpated. Extremities show increased edema lower extremities bilaterally along with chronic venous stasis and superficial ulceration of the legs around the ankles bilaterally more so on the right. - Labs CBC & Chem 7: 04/07/17 05:42 04/07/17 05:42 Labs: Abnormal Lab Results - Last 24 Hours (Table) 04/06/17 04/06/17 04/07/17 Range/Units 17:06 20:51 05:42 APTT 59.6 H (22.0-30.0) sec Creatinine (0.66-1.25) mg/dL Glucose (74-99) mg/dL POC Glucose (mg/dL) 135 H 119 H (75-99) mg/dL 04/07/17 04/07/17 04/07/17 Range/Units 05:42 06:21 11:27 APTT (22.0-30.0) sec Creatinine 1.60 H (0.66-1.25) mg/dL Glucose 140 H (74-99) mg/dL POC Glucose (mg/dL) 127 H 112 H (75-99) mg/dL Assessment and Plan Plan: Assessment 1 Sub- massive bilateral pulmonary embolus with a right lower extremity DVT, currently on IV heparin 2 moderate to severe degree of secondary pulmonary hypertension and troponin leak secondary to pulmonary embolism 3 shortness of breath secondary to above 4 chronic venous stasis involving the lower extremity 5 sedentary lifestyle 6 chronic anxiety/depression Plan Ideally this patient could've been considered for thrombolytics. This has not been done at a time of admission. Slightly improved compared to yesterday. Continued IV heparin. Do not commit yet for oral anticoagulation until the patient's condition is slightly improved and we are absolutely sure that we are not going to use any form of thrombolytics over the next 24-48 hours. For that reason I think it's reasonable to delay oral anticoagulation for now. CAT scan was reviewed. Echocardiac Mehdi was noted. I'm thinking this patient will need long-term anticoagulation based on this sedentary lifestyle and dated other comorbidities.
[2017-04-07] MEDS: SODIUM CHLORIDE 0.9% 1,000 ML IV SCH (15:52)
--- NOTE | 2017-04-07 16:32 | PN ---
DATE OF SERVICE: 04/06/2017 Mr. Rowley is a 51-year-old male with known history of bilateral lower extremity lymphedema and depression admitted to the hospital with complaints of shortness of breath and dizziness and near syncope for the past 4 to 5 days. Patient was found to have a large pulmonary embolism and currently being treated with IV heparin. The patient symptomatically much improved today. No complaints of chest pain. No headache or dizziness or lightheadedness. No acute overnight issues. Patient being followed by pulmonary and cardiology. Complete review of systems negative except as above. CURRENT MEDICATIONS: Reviewed. PHYSICAL EXAMINATION: A 51-year-old male lying in bed comfortably, awake, alert, oriented x3, appears to be in no apparent distress. VITAL SIGNS: Blood pressure is 121/74, pulse is 108, respirations 20, temp ( ) HEENT: Atraumatic, normocephalic. Patient is morbidly obese. LUNGS: Bilateral air entry is present. No wheezing. No crackles. ABDOMEN: Soft, soft, obese. Bowel sounds present. MORTGAGE LOAN OFFICER: Alert and oriented x3. No focal deficits. EXTREMITIES: Bilateral lower extremity significant lymphedema. Pulses palpable. PSYCHIATRIC: Cooperative. SKIN: No rash or skin lesions. LABORATORY DATA: WBC 11.2, hemoglobin 14.2, platelets 251. Sodium 142, potassium 4.1, chloride 105, bicarbonate 26. BUN 19, creatinine 1.3. IMPRESSION: 1. Acute bilateral large pulmonary emboli. 2. Acute right popliteal vein deep venous thrombosis. 3. Morbid obesity. 4. Bilateral lower extremity lymphedema chronic. 5. Lactic acidosis, improved. 6. Acute kidney injury, improved. 7. Elevated troponin level likely due to pulmonary emboli. 8. Elevated BNP. 9. History of depression and anxiety. DISCUSSION AND PLAN: The patient will be continued on IV heparin. Will follow closely cardiac catheterization. Pulmonary and Cardiology are following this patient. Will continue the current management. The patient is symptomatically much improved now. Still tachycardic, which is improving as well.
[2017-04-08] MEDS: NITROGLYCERIN OINT 1 INCH/GM PACKET TOPICAL SCH ×5 (00:30→23:18)
[2017-04-08] MEDS: FUROSEMIDE 10 MG/ML 4 ML VIAL IV SCH ×4 (00:31→23:17)
[2017-04-08] MEDS: PIPERACILLIN-TAZOBACTAM 3.375 GM in DEXTROSE/WATER 1 50ML.BAG IVPB SCH ×3 (02:54→21:57)
[2017-04-08] MEDS: PANTOPRAZOLE 40 MG TABLET PO SCH (06:20)
[2017-04-08] MEDS: CITALOPRAM HYDROBROMIDE 20 MG TAB PO SCH (07:50)
[2017-04-08] MEDS: DIPHENOX-ATROP 2.5-0.025 MG 1 EACH TAB PO PRN ×2 (07:50→15:49)
[2017-04-08] MEDS: IPRATROPIUM-ALBUTEROL 3 ML NEB INHALATION SCH ×4 (08:42→20:21)
--- NOTE | 2017-04-08 11:40 | PN ---
DATE OF SERVICE: 04/07/2017 INTERVAL HISTORY: 51-year-old male with known history of bilateral lower extremity edema, chronic lymphedema and the patient was admitted to the hospital with complaints of dizziness, short of breath and near syncope, worsening for the past 4 to 5 days. Prior to admission, the patient was found to have a large pulmonary embolism, currently being treated with IV heparin and patient symptomatically much improved compared to yesterday. No complaints of chest pain now. Patient had a 2-D echocardiogram reviewed which showed severe pulmonary hypertension with systolic pressure up 72.83 mmHg. Right ventricle is severely dilated with flattening of the septal wall in diastole and systole which is consistent with right ventricular volume and pressure overload. Left ventricular systolic function is normal at 50 to 55% REVIEW OF SYSTEMS: CONSTITUTIONAL: No fever. No chills. RESPIRATORY: No cough. No sputum production. No short of breath. CARDIOVASCULAR: No chest pain. No short of breath. The patient does have chronic leg swelling. ABDOMEN: No nausea, vomiting or abdominal pain. GENITOURINARY: Negative. ENDOCRINE: Negative. PSYCHIATRIC: Negative. SKIN: Negative. All other 14 point review of systems negative except as above. CURRENT MEDICATIONS: Reviewed. PHYSICAL EXAMINATION: 51 -year-old male lying in bed comfortably, awake, alert and oriented times three, appears to be in no apparent distress. VITALS: Blood pressure is 101/75, pulse 102, respiratory rate 18. Temperature afebrile, pulse ox is 95% on 2 L nasal cannula. HEENT: Atraumatic, normocephalic. Neck is supple. No JVD. CVS: S1, S2 heard. No murmurs or gallop. LUNGS: Bilateral air entry is present. Diminished breath sounds basally. Nonlabored breathing. ABDOMEN: Soft, obese. Bowel sounds present. CENTRAL NERVOUS SYSTEM: Awake and alert times three. No focal deficits. EXTREMITIES: Bilateral lower extremity chronic lymphedema. Pulses palpable. No clubbing or cyanosis. PSYCHIATRIC: Cooperative. LABORATORY DATA: WBC 10.3, hemoglobin 14.5, platelets are 265. Sodium 141, potassium 4.1, chloride 100, bicarb is 28. BUN 18, creatinine 1.6. Blood sugar 114. Calcium level is 8.7. 2D echo report reviewed. IMPRESSION: 1. Acute bilateral large pulmonary embolism due to sedentary lifestyle. 2. Severe pulmonary hypertension with enlarged right ventricle along with flattening of the septum due to pressure effects from pulmonary embolism. 3. Morbid obesity. 4. Acute right popliteal vein deep venous thrombosis. 5. Bilateral lower extremity chronic lymphedema. 6. Lactic acidosis, improved. 7. Acute kidney injury. 8. Elevated troponins likely due to pulmonary emboli. 9. Elevated BNP. 10. History of depression and anxiety. DISCUSSION AND PLAN: Patient will be continued on heparin IV. Patient is improving symptomatically. We will continue with IV heparin now until patient recovers completely. The patient's tachycardia is much improved now. Pulmonary is following closely. Prognosis is guarded. The patient may need adjunct faculty for medical terminology anticoagulation.
--- NOTE | 2017-04-08 12:32 | P.PN ---
Subjective Morbidly obese 51-year-old male patient who presented with a increased shortness of breath. The patient had progressive dyspnea. The patient lives a sedentary lifestyle. He has chronic lower extremity edema and chronic venous stasis and some superficial ulceration of the skin. The patient underwent investigated further and as part of investigation CT angios the chest was done and the patient was found to have bilateral pulmonary emboli. In addition, the patient was found to have a right popliteal DVT that was acute based on the ultrasound Doppler of the lower extremities. There was no evidence of any DVT in the left lower extremity. The CAT scan of the chest showed extensive bilateral pulmonary emboli and the Echocardiogram of the heart showed strain pattern involving the right ventricle along with pulmonary hypertension. The PA pressure was 72. Ejection fraction was 50-45%. There is evidence of severe pulmonary hypertension. The patient was seen by Dr. Herndon on no recommendations were done for Mary lytics and the patient was placed on IV heparin. He is free of any chest pain. He is still tachycardic and is having some exertional dyspnea. His current heart rate is 105 and regular. Pulse ox is around 96% on 3 L of oxygen by nasal cannula. No personal history of DVT or pulmonary embolism. On 04/08/2017 the patient is feeling better. He is less short of breath compared to yesterday. He is still on IV heparin. No chest pain. No hemoptysis. No pleurisy. Lower extremity are still swollen. He is receiving IV Lasix 40 mg every 8 hours. Is some IV heparin. IV Zosyn is also on empiric antibiotic coverage regarding lower extremity wounds. The patient has no other complaints for now. He is sitting up on a chair. No syncope. No loss of consciousness. No hypotension. No dizziness. Objective - Vital Signs Vital signs: Vital Signs Temp 97.4 F L 04/08/17 07:58 Pulse 88 04/08/17 11:29 Resp 16 04/08/17 07:58 BP 104/66 04/08/17 11:29 Pulse Ox 92 L 04/08/17 11:29 Intake & Output 04/07/17 04/08/17 04/08/17 18:59 06:59 18:59 Intake Total 848.668 926.231 490.044 Output Total 700 950 Balance 148.668 -23.769 490.044 Weight 166.6 kg 165.8 kg Intake: Intake, IV Titration 446.668 446.231 490.044 Amount Heparin Sodium,Porcine/ 236.668 236.231 490.044 D5w Pmx 25,000 unit In Dextrose/Water 1 500ml. bag @ 14.1 UNITS/KG/HR 45 .93 mls/hr IV .[id number] [facility] Rx#:[id number] Piperacillin-Tazobactam 3 50 50 .375 gm In Dextrose/Water 1 50ml.bag @ 12.5 mls/hr IVPB Q8H [facility] Rx#: [id number] Sodium Chloride 0.9% 1, 160 160 000 ml @ 20 mls/hr IV . Q24H [facility] Rx#:[id number] Oral 402 480 Output: Urine 700 950 Other: Voiding Method Urinal # Voids 2 2 - Exam Morbidly obese, comfortable and mild to moderate degree of respiratory distress with minimal amount of activity.Head exam was generally normal. There was no scleral icterus or corneal arcus. Mucous membranes were moist. Neck is short and supple and there is significant crowding of the posterior oropharynx. There is no goiter or neck masses. Lungs sounds are diminished in lung bases bilaterally otherwise they're distant. Heart sounds are regular and tachycardic , positive S1 and S2 and there is no significant murmurs appreciated. Abdomen is obese soft nontender and organs cannot be accurately palpated. Extremities show increased edema lower extremities bilaterally along with chronic venous stasis and superficial ulceration of the legs around the ankles bilaterally more so on the right. - Labs CBC & Chem 7: 04/07/17 05:42 04/07/17 05:42 Labs: Abnormal Lab Results - Last 24 Hours (Table) 04/08/17 Range/Units 06:30 APTT 61.0 H (22.0-30.0) sec Microbiology - Last 24 Hours (Table) 04/05/17 11:55 Blood Culture - Preliminary Blood No Growth after 48 hours Assessment and Plan Plan: Assessment 1 Sub- massive bilateral pulmonary embolus with a right lower extremity DVT, currently on IV heparin 2 moderate to severe degree of secondary pulmonary hypertension and troponin leak secondary to pulmonary embolism 3 shortness of breath secondary to above 4 chronic venous stasis involving the lower extremity 5 sedentary lifestyle 6 chronic anxiety/depression Plan Patient is stable for now. The patient is being diuresed. The patient is on IV heparin. The patient will be seen if he be covered for Eliquis , and if so, we'll start the patient on 10 mg by mouth by mouth twice a day and then discontinue the heparin. Meanwhile, continue local wound care, keep the lower extremity wrapped, continued IV Zosyn transition the patient to oral antibiotics , we'll continue to follow.
[2017-04-08] MEDS: SODIUM CHLORIDE 0.9% 1,000 ML IV SCH (16:43)
[2017-04-08] MEDS: HEPARIN SODIUM,PORCINE/D5W PMX 25,000 UNIT in DEXTROSE/WATER 1 500ML.BAG IV SCH ×2 (16:43→21:57)
[2017-04-09] MEDS: PIPERACILLIN-TAZOBACTAM 3.375 GM in DEXTROSE/WATER 1 50ML.BAG IVPB SCH ×2 (03:16→14:35)
[2017-04-09] MEDS: NITROGLYCERIN OINT 1 INCH/GM PACKET TOPICAL SCH ×2 (06:33→14:36)
[2017-04-09] MEDS: HEPARIN SODIUM,PORCINE/D5W PMX 25,000 UNIT in DEXTROSE/WATER 1 500ML.BAG IV SCH (06:34)
[2017-04-09] MEDS: PANTOPRAZOLE 40 MG TABLET PO SCH (06:35)
[2017-04-09] MEDS: IPRATROPIUM-ALBUTEROL 3 ML NEB INHALATION SCH ×2 (07:41→10:56)
[2017-04-09] MEDS: CITALOPRAM HYDROBROMIDE 20 MG TAB PO SCH (09:06)
[2017-04-09] MEDS: FUROSEMIDE 10 MG/ML 4 ML VIAL IV SCH (09:06)
--- NOTE | 2017-04-09 11:15 | PN ---
DATE OF SERVICE: 04/08/2017 INTERVAL HISTORY: Mr. Rowley is a 51-year-old male with known history of bilateral lower extremity lymphedema admitted to the hospital with dizziness, short of breath and near syncope. Patient was found to have submassive PE, currently on IV heparin. The patient did improve symptomatically. Patient continued on IV Lasix due to bilateral lower extremity swelling and possible cellulitis with antibiotics as well. Patient did improve symptomatically. Patient denied any complaints today. Otherwise, patient is still having bilateral lower extremity swelling and redness is much improved now. Review of symptoms negative, except above. Current medications include Tylenol, DuoNeb, Celexa, Lomotil, Lasix, heparin, Zofran, Protonix, Zosyn. PHYSICAL EXAMINATION: A 51-year-old male lying in the bed. Awake, alert, oriented x3. Appears to be in no apparent distress, morbidly obese. VITALS: Blood pressure is 106/69, pulse is 92, respirations 18, temperature afebrile, pulse ox 92% on room air. HEENT: Atraumatic, normocephalic. Neck is supple. No JVD. CVS EXAM: S1, S2 heard. No murmurs, no gallop. LUNGS: Bilateral air entry is present, diminished air entry bilateral basally. Nonlabored breathing. No wheezing. ABDOMEN: Soft, obese. Bowel sounds present. REGISTERED ACCOUNT ADMINISTRATOR: Awake, alert, oriented x3. No focal deficit. EXTREMITIES: Bilateral lymphedema with leg swelling and redness much improved. PSYCHIATRIC: Cooperative. LABORATORY DATA: Reviewed. Creatinine 1.6. IMPRESSION: 1. Acute bilateral large pulmonary emboli due to sedentary lifestyle. 2. Severe pulmonary hypertension with enlarged right ventricle along with flattening of the septum due to pressure effects from the pulmonary embolism. 3. Morbid obesity. 4. Acute right popliteal vein deep venous thrombosis. 5. Bilateral lower extremity chronic lymphedema with cellulitis and swelling, improved. 6. Lactic acidosis, improved. 7. Acute kidney injury, most likely prerenal. 8. Elevated troponin due to pulmonary emboli. 9. Elevated BNP on admission. 10. Depression and anxiety. DISCUSSION AND PLAN: Patient will be continued on IV heparin. Will plan to change to Eliquis, depending on insurance coverage. Continue with IV Lasix and current IV antibiotics in the form of Zosyn for cellulitis possible. Continue the current management and prognosis, will follow up closely. Patient need syndrome improvements symptomatically.
--- NOTE | 2017-04-09 16:42 | P.PN ---
Subjective Morbidly obese 51-year-old male patient who presented with a increased shortness of breath. The patient had progressive dyspnea. The patient lives a sedentary lifestyle. He has chronic lower extremity edema and chronic venous stasis and some superficial ulceration of the skin. The patient underwent investigated further and as part of investigation CT angios the chest was done and the patient was found to have bilateral pulmonary emboli. In addition, the patient was found to have a right popliteal DVT that was acute based on the ultrasound Doppler of the lower extremities. There was no evidence of any DVT in the left lower extremity. The CAT scan of the chest showed extensive bilateral pulmonary emboli and the Echocardiogram of the heart showed strain pattern involving the right ventricle along with pulmonary hypertension. The PA pressure was 72. Ejection fraction was 50-45%. There is evidence of severe pulmonary hypertension. The patient was seen by Dr. Herndon on no recommendations were done for Mary lytics and the patient was placed on IV heparin. He is free of any chest pain. He is still tachycardic and is having some exertional dyspnea. His current heart rate is 105 and regular. Pulse ox is around 96% on 3 L of oxygen by nasal cannula. No personal history of DVT or pulmonary embolism. On 04/08/2017 the patient is feeling better. He is less short of breath compared to yesterday. He is still on IV heparin. No chest pain. No hemoptysis. No pleurisy. Lower extremity are still swollen. He is receiving IV Lasix 40 mg every 8 hours. Is some IV heparin. IV Zosyn is also on empiric antibiotic coverage regarding lower extremity wounds. The patient has no other complaints for now. He is sitting up on a chair. No syncope. No loss of consciousness. No hypotension. No dizziness. On 04/09/2017, the patient is still on IV heparin. He was still in the process of authorizing the family living educator anticoagulation with Xarelto. Meanwhile, the patient is being diuresis IV Lasix. Lower extremity edema is improving. The patient is still on IV Zosyn. No weeping of fluid from the lower extremity and there are no open wounds at this point. The patient is doing well. No chest pain. No shortness of breath at rest. He still having some mild exertional dyspnea with activity. No hemoptysis. No other complaints otherwise. Objective - Vital Signs Vital signs: Vital Signs Temp 97.5 F L 04/09/17 12:00 Pulse 111 H 04/09/17 12:00 Resp 18 04/09/17 12:00 BP 125/83 04/09/17 12:00 Pulse Ox 90 L 04/09/17 12:00 Intake & Output 04/08/17 04/09/17 04/09/17 18:59 06:59 18:59 Intake Total 2930.162 8898.064 240 Output Total 700 Balance 1040.000 405.064 240 Weight 164.8 kg Intake: IV 659.30 Heparin Sodium,Porcine/ 459.30 D5w Pmx 25,000 unit In Dextrose/Water 1 500ml. bag @ 14.1 UNITS/KG/HR 45 .93 mls/hr IV .[id number] [facility] Rx#:[id number] Sodium Chloride 0.9% 1, 200 000 ml @ 20 mls/hr IV . Q24H [facility] Rx#:[id number] Intake, IV Titration 500.000 445.764 Amount Heparin Sodium,Porcine/ 500.000 395.764 D5w Pmx 25,000 unit In Dextrose/Water 1 500ml. bag @ 14.1 UNITS/KG/HR 45 .93 mls/hr IV .[id number] [facility] Rx#:[id number] Piperacillin-Tazobactam 3 50 .375 gm In Dextrose/Water 1 50ml.bag @ 12.5 mls/hr IVPB Q8H [facility] Rx#: [id number] Oral 540 240 Output: Urine 700 Other: # Voids 1 1 2 # Bowel Movements 0 - Exam Morbidly obese, comfortable and mild to moderate degree of respiratory distress with minimal amount of activity.Head exam was generally normal. There was no scleral icterus or corneal arcus. Mucous membranes were moist. Neck is short and supple and there is significant crowding of the posterior oropharynx. There is no goiter or neck masses. Lungs sounds are diminished in lung bases bilaterally otherwise they're distant. Heart sounds are regular and tachycardic , positive S1 and S2 and there is no significant murmurs appreciated. Abdomen is obese soft nontender and organs cannot be accurately palpated. Extremities show increased edema lower extremities bilaterally along with chronic venous stasis and superficial ulceration of the legs around the ankles bilaterally more so on the right. - Labs CBC & Chem 7: 04/07/17 05:42 04/07/17 05:42 Labs: Microbiology - Last 24 Hours (Table) 04/05/17 11:55 Blood Culture - Preliminary Blood No Growth after 96 hours Assessment and Plan Plan: Assessment 1 Sub- massive bilateral pulmonary embolus with a right lower extremity DVT, currently on IV heparin 2 moderate to severe degree of secondary pulmonary hypertension and troponin leak secondary to pulmonary embolism 3 shortness of breath secondary to above 4 chronic venous stasis involving the lower extremity, improving while being on IV Lasix 40 mg every 8 hours 5 sedentary lifestyle 6 chronic anxiety/depression Plan Patient is stable for now. The patient is being diuresed. The patient is on IV heparin. The patient will be transitioned to Xarelto. The patient will likely be switched to oral anticoagulation once the authorization is complete. Meanwhile, we'll continue monitoring this patient's condition here in the telemetry unit. Further recommendations are to follow. ID as the patient can be discharged home once already elevation is been initiated and his condition remains stable.
--- NOTE | 2017-04-09 17:10 | P.DS ---
Providers Date of admission: 04/05/17 15:31 Attending physician: Clint Culp Consults: 04/05/17 15:31 Consult Physician Stat Consulting Provider: Angel Herndon Consult Reason/Comments: Pulmonary embolism Do you want consulting provider notified?: Already Contacted 04/05/17 15:32 Consult Physician Routine Consulting Provider: Nilda Prince Consult Reason/Comments: Elevated troponin, pulmonary embolism, CHF Do you want consulting provider notified?: Yes Primary care physician: Stated None Hospital Course: Morbidly obese 51-year-old male patient who presented with a increased shortness of breath. The patient had progressive dyspnea. The patient lives a sedentary lifestyle. He has chronic lower extremity edema and chronic venous stasis and some superficial ulceration of the skin. The patient underwent investigated further and as part of investigation CT angios the chest was done and the patient was found to have bilateral pulmonary emboli. In addition, the patient was found to have a right popliteal DVT that was acute based on the ultrasound Doppler of the lower extremities. There was no evidence of any DVT in the left lower extremity. The CAT scan of the chest showed extensive bilateral pulmonary emboli and the Echocardiogram of the heart showed strain pattern involving the right ventricle along with pulmonary hypertension. The PA pressure was 72. Ejection fraction was 50-45%. There is evidence of severe pulmonary hypertension. The patient was seen by Dr. Herndon on no recommendations were done for thrombolytics and the patient was placed on IV heparin. He is free of any chest pain. He is still tachycardic and is having some exertional dyspnea. His current heart rate is 105 and regular. Pulse ox is around 96% on 3 L of oxygen by nasal cannula. No personal history of DVT or pulmonary embolism. Patient has been maintained on Lasix 40 minutes IV every 8 hours. And has improved significantly. Patient has a diagnosis of lymphedema which has been progressively getting worse over the last few years. The time of my evaluation on the day of discharge patient was on room air was able to family without much difficulty. Lower extremity states that he is significantly better Physical exam Gen. appearance oriented 3 in no distress Neck is supple no JVD Lungs good air entry clear to auscultation no rhonchi or wheezing Heart S1-S2 heard regular rate and rhythm no murmurs appreciated Abdomen is soft nontender no organomegaly bowel sounds are intact Neurologically cranial nerves II-12 grossly intact no focal motor or sensory deficits noted Lower extremities right leg is more swollen there is chronic skin changes there is a superficial ulcer noted on the posterior lower extremity closer to the Achilles tendon region Discharge diagnosis #1 submassive pulmonary embolism #2 right lower extremity DVT #3 acute on chronic lower extremity ulcer which is infected #4 obesity #5 hypertension. #6 pulmonary hypertension secondary to #1 #7 depression Patient is discharged home on xarelto Did discuss the studies behind dosing with his weight group Is to follow up with Dr. Lopez Patient appears to be reasonably asymptomatic Did discuss following up with the lymphedema clinic and [facility] as well we'll discharge patient on Lasix 40 by mouth twice a day Patient Condition at Discharge: Serious Plan - Discharge Summary New Discharge Prescriptions: Doxycycline Monohydrate [Monodox] 100 mg PO Q12HR #14 cap Furosemide [Lasix] 40 mg PO BID #60 tablet Rivaroxaban [Xarelto Starter Pack] 1 each PO DIRECTED #60 tab Discharge Medication List Citalopram Hydrobromide [CeleXA] 40 mg PO DAILY 04/05/17 [History] Naproxen Sodium [Aleve] 220 mg PO DAILY PRN 04/05/17 [History] Doxycycline Monohydrate [Monodox] 100 mg PO Q12HR #14 cap 04/09/17 [Rx] Furosemide [Lasix] 40 mg PO BID #60 tablet 04/09/17 [Rx] Rivaroxaban [Xarelto Starter Pack] 1 each PO DIRECTED #60 tab 04/09/17 [Rx] Follow up Appointment(s)/Referral(s): Amanda Toth MD [REFERRING] - 1 Week Kleber Packer MD [STAFF PHYSICIAN] - 1 Week None,Stated [Primary Care Provider] - 1-2 days More Lopez MD [STAFF PHYSICIAN] - 1 Week Activity/Diet/Wound Care/Special Instructions: *substation superintendent Xarelto from [facility] at time of discharge* Discharge Disposition: HOME SELF-CARE
[2017-04-09 17:28] VITALS: BP 137/81; PULSE 110; RESP 20; TEMP 97.3
== END 2017-04-09 17:38 | disposition home or self-care (01) | DRG 299 ==
LOC: EC 11:43 → 6SEL 15:31
PROVIDERS: ADMIT Internal Medicine; ATTEND Internal Medicine
DX: I82.431 Acute embolism and thrombosis of right popliteal vein (principal); I26.99 Other pulmonary embolism without acute cor pulmonale; N17.9 Acute kidney failure, unspecified; E87.2 Acidosis; I11.0 Hypertensive heart disease with heart failure; I50.9 Heart failure, unspecified; L03.115 Cellulitis of right lower limb; L03.116 Cellulitis of left lower limb; I27.2 Other secondary pulmonary hypertension; E66.01 Morbid (severe) obesity due to excess calories; F32.9 Major depressive disorder, single episode, unspecified; F41.9 Anxiety disorder, unspecified; I87.8 Other specified disorders of veins; I89.0 Lymphedema, not elsewhere classified; R09.02 Hypoxemia; Z79.01 Long term (current) use of anticoagulants; Z79.899 Other long term (current) drug therapy; Z87.891 Personal history of nicotine dependence
CPT/HCPCS: 36415; 71020; 71275; 80048; 80053; 82550; 82553; 83036; 83605; 83735; 83880; 84484; 85025; 85379; 85610; 85730; 87040; 93005; 93306; 93970; 94640; 94760

== ENCOUNTER → 2017-05-16 | Outpatient (CLI) | payer OTHER ==
[2017-05-16 14:49] LABS: INR 1.9 (<1.1); Prothrombin Time 18.5 sec (9.0-12.0)
== END ==
LOC: LABWHC1 14:14
PROVIDERS: ATTEND Internal Medicine Critical Care Medicine
DX: I26.99 Other pulmonary embolism without acute cor pulmonale (principal); I82.409 Acute embolism and thrombosis of unspecified deep veins of unspecified lower extremity; Z51.81 Encounter for therapeutic drug level monitoring; Z79.01 Long term (current) use of anticoagulants
CPT/HCPCS: 36415; 85610

== ENCOUNTER → 2017-08-04 | Outpatient (CLI) | payer OTHER ==
[2017-08-04 16:39] LABS: Potassium 4.3 mmol/L (3.5-5.1)
== END | disposition home or self-care (01) ==
LOC: LABWHC1 15:43
PROVIDERS: ATTEND Psychiatry & Neurology Psychiatry
DX: I26.99 Other pulmonary embolism without acute cor pulmonale (principal)
CPT/HCPCS: 36415; 80051

== ENCOUNTER 2018-09-08 09:48 | Inpatient (IN) | payer OTHER ==
[2018-09-08] MEDS ORDERED: SODIUM CHLORIDE 0.9% 1,000 ML IV STA (10:44)
[2018-09-08] MEDS ORDERED: HEPARIN SODIUM,PORCINE 10,000 UNIT/ML 1 ML VIAL IV ONE (11:00)
--- NOTE | 2018-09-08 11:08 | ED ---
General Adult HPI - General Chief complaint: Shortness of Breath Stated complaint: SOB,chest pain Source: patient Mode of arrival: wheelchair Limitations: no limitations - History of Present Illness Initial comments: Dictation was produced using [employer] dictation software. please excuse any grammatical, word or spelling errors. Chief Complaint: 52-year-old male with past medical history lymphedema , D venous thrombosis and pulmonary embolus presents with shortness of breath. History of Present Illness: Patient is 52-year-old male with past medical history of pulmonary embolus. Patient was diagnosed last year. He was on Coumadin therapy for about 6 months. Patient was told that his DVT and pulmonary embolus was secondary to sedentary lifestyle and sleeping in a sitting position. Patient states he took his Coumadin for about 6 months. He was so several follow-up appointment in November for repeat evaluation however he did not follow-up with that appointment. He is septic and his Coumadin in November. Patient states that over the last 2 or 3 days his symptoms of shortness of breath reminiscent of his PE symptoms have returned. Patient does have bilateral pulmonary edema. Denies any constitutional symptoms. Patient feels much more short of breath with exertion. Chest pain. He feels as though both of his legs are much more edematous than usual suspicion is right lower extremity. The ROS documented in this emergency department record has been reviewed and confirmed by me. Those systems with pertinent positive or negative responses have been documented in the HPI. All other systems are other negative and/or noncontributory. - Related Data Home Medications Medication Instructions Recorded Confirmed Multivitamin,Therapeutic [Thera] 1 tab PO DAILY 09/08/18 09/08/18 Naproxen Sodium [Aleve] 220 mg PO DAILY 09/08/18 09/08/18 Allergies Allergy/AdvReac Type Severity Reaction Status Date / Time No Known Allergies Allergy Verified 09/08/18 11:26 Review of Systems ROS Statement: Those systems with pertinent positive or pertinent negative responses have been documented in the HPI. ROS Other: All systems not noted in ROS Statement are negative. Past Medical History Past Medical History: Pulmonary Embolus (PE) Additional Past Medical History / Comment(s): x-smoker History of Any Multi-Drug Resistant Organisms: None Reported Past Surgical History: Cholecystectomy, Hernia Repair Past Anesthesia/Blood Transfusion Reactions: No Reported Reaction Past Psychological History: Anxiety Smoking Status: Former smoker Past Alcohol Use History: None Reported Past Drug Use History: None Reported - Past Family History Brother(s) Family Medical History: Pulmonary Embolus Additional Family Medical History / Comment(s): CABG General Exam - General Exam Comments Initial Comments: PHYSICAL EXAM: General Impression: Alert and oriented x3, not in acute distress HEENT: Normocephalic atraumatic, extra-ocular movements intact, pupils equal and reactive to light bilaterally, mucous membranes moist. Cardiovascular: Tachycardic Chest: Lungs clear to auscultation bilaterally, no rhonchi, no wheeze, no rales Abdomen: Bowel sounds present, abdomen soft, non-tender, non-distended, no organomegaly Musculoskeletal: Right leg girth greater than left leg girth. Bilateral leg swelling Motor: Power 5/5 bilaterally, no focal deficits noted Neurological: CN II-XII grossly intact, no focal motor or sensory deficits noted Skin: Intact with no visualized rashes Psych: Normal affect and mood Limitations: no limitations Course Vital Signs 09/08/18 09/08/18 09/08/18 10:07 10:49 11:00 Temperature 97.7 F Pulse Rate 153 H 146 H 135 H Pulse Rate [ Powder Loader ] Respiratory 24 21 31 H Rate Blood Pressure 108/75 O2 Sat by Pulse 96 95 96 Oximetry 09/08/18 09/08/18 09/08/18 11:10 11:30 12:00 Temperature Pulse Rate 134 H Pulse Rate [ 130 H Powder Loader ] Respiratory 18 29 H Rate Blood Pressure 133/102 133/102 O2 Sat by Pulse 96 Oximetry 09/08/18 09/08/18 09/08/18 12:30 13:00 13:30 Temperature Pulse Rate 142 H Pulse Rate [ Powder Loader ] Respiratory 14 64 H Rate Blood Pressure 133/102 161/95 163/98 O2 Sat by Pulse 98 89 L Oximetry Medical Decision Making - Medical Decision Making ED course: 52-year-old male with clinical presentation suspicious for pulmonary embolus vital signs upon I'll shows heart rate of 153, respiratory signs within normal limits. Laboratory evaluation obtained. Patient has leukocytosis of 14.1. Rest of CBC unremarkable. Coag panel shows no acute processes. Metabolic panel shows mild elevation potassium 5.3. Glucose is 108. Patient is troponin 0.258. CT angios the chest shows massive bilateral pulmonary emboli would right ventricular enlargement suggesting right ventricular strain. There is also a pulmonary nodule in the right lower lobe. DVT study shows positive DVT in the right leg that's at the proximal popliteus. She was initially started on heparin prior to the studies given high pretest probability. Patient's hemodynamically stable. He's been observed in emergency Department with stable blood pressures. Patient be admitted to cardiac telemetry for further care. Cardiology on consult. EKG Interpretation: A 12 lead EKG was obtained. It was interpreted by myself and attending physician. There is a P wave before every QRS complex. Rate is 138. Rhythm is sinus tachycardia, [place] interval 1:30, QRS 70, QTC 399. QT is not prolonged. No ST segment depression or elevation. There is findings of right heart strain. - Lab Data Result diagrams: 09/08/18 11:20 09/08/18 11:20 Lab Results 09/08/18 09/08/18 09/08/18 Range/Units 11:20 11:20 11:20 WBC 14.1 H (3.8-10.6) k/uL RBC 5.31 (4.30-5.90) m/uL Hgb 16.8 (13.0-17.5) gm/dL Hct 50.0 (39.0-53.0) % MCV 94.0 (80.0-100.0) fL MCH 31.6 (25.0-35.0) pg MCHC 33.7 (31.0-37.0) g/dL RDW 13.4 (11.5-15.5) % Plt Count 289 (150-450) k/uL Neutrophils % 80 % Lymphocytes % 11 % Monocytes % 5 % Eosinophils % 1 % Basophils % 0 % Neutrophils # 11.2 H (1.3-7.7) k/uL Lymphocytes # 1.6 (1.0-4.8) k/uL Monocytes # 0.8 (0-1.0) k/uL Eosinophils # 0.2 (0-0.7) k/uL Basophils # 0.1 (0-0.2) k/uL PT (9.0-12.0) sec INR (<1.2) APTT (22.0-30.0) sec Sodium 142 (137-145) mmol/L Potassium 5.3 H (3.5-5.1) mmol/L Chloride 108 H (98-107) mmol/L Carbon Dioxide 25 (22-30) mmol/L Anion Gap 9 mmol/L BUN 14 (9-20) mg/dL Creatinine 1.22 (0.66-1.25) mg/dL Est GFR (CKD-EPI)AfAm 78 (>60 ml/min/1.73 sqM) Est GFR (CKD-EPI)NonAf 67 (>60 ml/min/1.73 sqM) Glucose 108 H (74-99) mg/dL Calcium 9.5 (8.4-10.2) mg/dL Magnesium 2.1 (1.6-2.3) mg/dL Total Bilirubin 0.8 (0.2-1.3) mg/dL AST 29 (17-59) U/L ALT 34 (21-72) U/L Alkaline Phosphatase 96 (38-126) U/L Total Creatine Kinase 66 (55-170) U/L CK-MB (CK-2) 1.7 (0.0-2.4) ng/mL CK-MB (CK-2) Rel Index 2.6 Troponin I 0.258 H* (0.000-0.034) ng/mL Total Protein 7.7 (6.3-8.2) g/dL Albumin 4.2 (3.5-5.0) g/dL 09/08/18 Range/Units 11:20 WBC (3.8-10.6) k/uL RBC (4.30-5.90) m/uL Hgb (13.0-17.5) gm/dL Hct (39.0-53.0) % MCV (80.0-100.0) fL MCH (25.0-35.0) pg MCHC (31.0-37.0) g/dL RDW (11.5-15.5) % Plt Count (150-450) k/uL Neutrophils % % Lymphocytes % % Monocytes % % Eosinophils % % Basophils % % Neutrophils # (1.3-7.7) k/uL Lymphocytes # (1.0-4.8) k/uL Monocytes # (0-1.0) k/uL Eosinophils # (0-0.7) k/uL Basophils # (0-0.2) k/uL PT 10.2 (9.0-12.0) sec INR 1.0 (<1.2) APTT 24.2 (22.0-30.0) sec Sodium (137-145) mmol/L Potassium (3.5-5.1) mmol/L Chloride (98-107) mmol/L Carbon Dioxide (22-30) mmol/L Anion Gap mmol/L BUN (9-20) mg/dL Creatinine (0.66-1.25) mg/dL Est GFR (CKD-EPI)AfAm (>60 ml/min/1.73 sqM) Est GFR (CKD-EPI)NonAf (>60 ml/min/1.73 sqM) Glucose (74-99) mg/dL Calcium (8.4-10.2) mg/dL Magnesium (1.6-2.3) mg/dL Total Bilirubin (0.2-1.3) mg/dL AST (17-59) U/L ALT (21-72) U/L Alkaline Phosphatase (38-126) U/L Total Creatine Kinase (55-170) U/L CK-MB (CK-2) (0.0-2.4) ng/mL CK-MB (CK-2) Rel Index Troponin I (0.000-0.034) ng/mL Total Protein (6.3-8.2) g/dL Albumin (3.5-5.0) g/dL Disposition Clinical Impression: Pulmonary embolism Disposition: ADMITTED IP TO THIS [facility] Condition: Fair Referrals: Amanda Toth MD [Primary Care Provider] - 1-2 days Decision Time: 15:04
[2018-09-08 11:44] LABS: Basophils # (A) 0.1 k/uL (0-0.2); Basophils % (A) 0 %; Eosinophils # (A) 0.2 k/uL (0-0.7); Eosinophils % (A) 1 %; HGB 16.8 gm/dL (13.0-17.5); Lymphocytes # (A) 1.6 k/uL (1.0-4.8); Lymphocytes % (A) 11 %; MCH 31.6 pg (25.0-35.0); MCHC 33.7 g/dL (31.0-37.0); Mean Platelet Volume 7.2; Monocytes # (A) 0.8 k/uL (0-1.0); Monocytes % (A) 5 %; Neutrophils # (A) 11.2 k/uL (1.3-7.7); Neutrophils % (A) 80 %; Platelet Count 289 k/uL (150-450); RBC 5.31 m/uL (4.30-5.90); RDW 13.4 % (11.5-15.5); WBC 14.1 k/uL (3.8-10.6)
[2018-09-08 11:51] LABS: Albumin 4.2 g/dL (3.5-5.0); Calcium 9.5 mg/dL (8.4-10.2); Magnesium 2.1 mg/dL (1.6-2.3); Potassium 5.3 mmol/L (3.5-5.1); Total Bilirubin 0.8 mg/dL (0.2-1.3); Total Protein 7.7 g/dL (6.3-8.2)
[2018-09-08 11:56] LABS: Partial Thromboplastin Time 24.2 sec (22.0-30.0); Prothrombin Time 10.2 sec (9.0-12.0)
--- NOTE | 2018-09-08 11:58 | XR ---
EXAMINATION TYPE: XR chest 2V DATE OF EXAM: 09/08/2018 COMPARISON: 04/24/2017 TECHNIQUE: PA and lateral views submitted. HISTORY: Difficulty breathing FINDINGS: The lungs are clear and there is no pneumothorax, pleural effusion, or focal pneumonia. Hypertrophi c and degenerative change of the vertebral column. Atherosclerotic change of the vasculature. No over t failure. IMPRESSION: 1. No acute process.
[2018-09-08 12:18] LABS: Creatine Kinase MB 1.7 ng/mL (0.0-2.4)
[2018-09-08 12:28] LABS: Troponin I 0.258 ng/mL (0.000-0.034)
[2018-09-08] MEDS: HEPARIN SOD,PORK IN 0.45% NACL 25,000 UNIT in 0.45% NACL 1 500ML.BAG IV SCH ×2 (12:38→22:31)
--- NOTE | 2018-09-08 12:52 | CT ---
EXAMINATION TYPE: CT angio chest DATE OF EXAM: 09/08/2018 12:29 PM COMPARISON: 04/05/2017 HISTORY: difficulty breathing CT DLP: 628.2 mGycm Automated exposure control for dose reduction was used. CONTRAST: CTA scan of the thorax is performed with IV Contrast, patient injected with 100 mL of Isovue 370, pul monary embolism protocol. . FINDINGS: LUNGS: There is no pneumothorax. No consolidative pneumonia.. Basilar bronchiectasis is seen and ther e is interlobular septal thickening at the lung bases suggesting a degree of chronic interstitial nikki g disease.. Along the subpleural space of the right lower lobe posteriorly there is a 7 mm and 4 mm n odule not clearly seen on the previous exam. MEDIASTINUM: There is massive bilateral pulmonary embolism involving the main pulmonary artery extend ing to the secondary and distal branches bilaterally. Report immediately called to the patient's ER p hysician. Aorta is of normal caliber. Heart is mildly enlarged. The right ventricle the left ventricular diamet er ratio appears to be enlarged suggestive of right ventricular strain. OTHER: Postcholecystectomy changes are noted. Hypertrophic and degenerative change of the spine note d. Small hiatal hernia noted. IMPRESSION: 1. Massive the bilateral pulmonary embolism with right ventricular enlargement suggestive of right ve ntricular strain correlate clinically. 2. A 7 mm and 4 mm right lower lobe pulmonary nodule not seen on the previous exam. Subpleural in loc ation and may be postinflammatory. Recommend a follow-up 3-[address] scan to assess for stability.
--- NOTE | 2018-09-08 12:53 | US ---
EXAMINATION TYPE: US venous doppler duplex LE BI DATE OF EXAM: 09/08/2018 12:41 PM COMPARISON: 04/05/2017 CLINICAL HISTORY: Pain. SOB, bilateral leg pain and swelling. SIDE PERFORMED: Bilateral TECHNIQUE: The lower extremity deep venous system is examined utilizing real time linear array sonog shantell with graded compression, doppler sonography and color-flow sonography. VESSELS IMAGED: External Iliac Vein (EIV) Common Femoral Vein Deep Femoral Vein Greater Saphenous Vein * Femoral Vein Popliteal Vein Small Saphenous Vein * Proximal Calf Veins (* superficial vessels) Patient was on thinner for prior DVT, he stated he took himself off them because he was feeling fine. Right Leg: Positive for DVT, pop prox through prox calf veins, there is thrombus seen with distended vessel, no flow and non compressible. Left Leg: Negative for DVT IMPRESSION: 1. Exam is positive for acute DVT right popliteal vein through the proximal calf veins
[2018-09-08] MEDS ORDERED: NALOXONE 0.4 MG/ML 1 ML VIAL IV PRN (15:00)
--- NOTE | 2018-09-08 23:22 | P.HPIM ---
History of Present Illness H&P Date: 09/08/18 Chief Complaint: Shortness of breath Patient is a 52-year-old male with a known history of chronic bilateral lower extremity lymphedema and history of pulmonary embolism about a year ago, currently not taking Coumadin for the past 6-8 months came to ER with complaints of acute worsening shortness of breath since yesterday. Patient says that he has been having shortness of breath for the last couple of weeks but suddenly got worse yesterday. Patient was told that his DVT and pulmonary embolus was secondary to sedentary lifestyle and sleeping in a sitting position. Patient states he took his Coumadin for about 6 months. He was so several follow-up appointment in November for repeat evaluation however he did not follow-up with that appointment. He stopped his Coumadin in November. Denies any constitutional symptoms. Patient feels much more short of breath with exertion. Chest pain. He feels as though both of his legs are much more edematous than usual suspicion is right lower extremity. Lower extremity duplex scan showed acute DVT right popliteal vein through the proximal calf veins CTA chest showed massive bilateral pulmonary embolism with right ventricular enlargement suggestive of right ventricular strain correlate clinically. A 7 mm and 4 mm right lower lobe pulmonary nodule not seen previous exam subpleural in location could be inflammatory. WBC 14.1 Troponin 0.258 Potassium 5.3 Review of Systems Constitutional: Patient denies any fever or chills . No generalized weakness or weight loss. Abdomen: Patient denied nausea vomiting and diarrhea and abdominal pain. Cardiovascular: Shortness of breath with worsening leg swelling and chest tightness. Respiratory: patient denied any cough is from production. No shortness of breath Neurologic: Patient denied any numbness or tingling headache. Musculoskeletal: Patient denies any complaints of joint swelling or deformity. Skin: Negative Psychiatric: Negative Endocrine: No heat or cold intolerance. No recent weight gain. Genitourinary: No dysuria or hematuria. All other 14 point ROS negative except the above Past Medical History Past Medical History: Deep Vein Thrombosis (DVT), Pulmonary Embolus (PE) Additional Past Medical History / Comment(s): x-smoker, seborrheic dermatitits, keyur leg lympg edema, anxiety History of Any Multi-Drug Resistant Organisms: None Reported Past Surgical History: Cholecystectomy, Hernia Repair Additional Past Surgical History / Comment(s): left achillies tendon repair 1974 , umb hernia repair Past Anesthesia/Blood Transfusion Reactions: No Reported Reaction Smoking Status: Former smoker - Past Family History Brother(s) Family Medical History: Pulmonary Embolus Additional Family Medical History / Comment(s): CABG Mother Family Medical History: COPD, Pneumonia Additional Family Medical History / Comment(s): non-smoker. at age 89 Father Family Medical History: Myocardial Infarction ([place]) Additional Family Medical History / Comment(s): smoker, mi - age 64 Medications and Allergies Home Medications Medication Instructions Recorded Confirmed Type Multivitamin,Therapeutic [Thera] 1 tab PO DAILY 09/08/18 09/08/18 History Naproxen Sodium [Aleve] 220 mg PO DAILY 09/08/18 09/08/18 History Allergies Allergy/AdvReac Type Severity Reaction Status Date / Time No Known Allergies Allergy Verified 09/08/18 11:26 Physical Exam Vitals: Vital Signs Temp Pulse Pulse Resp BP BP Pulse Ox 09/08/18 20:11 93 L 09/08/18 20:00 119 H 20 09/08/18 18:38 97.4 F L 128 H 20 134/84 98 09/08/18 18:23 97.7 F 124 H 20 139/98 96 09/08/18 17:30 124 H 20 139/98 96 09/08/18 17:00 131 H 22 146/89 97 09/08/18 16:30 131 H 18 154/103 99 09/08/18 16:00 131 H 17 136/82 09/08/18 15:30 141 H 22 125/86 99 09/08/18 15:03 128 H 20 113/96 97 09/08/18 15:00 128 H 20 113/96 97 09/08/18 14:30 131 H 18 129/77 97 09/08/18 14:00 133 H 22 97 09/08/18 13:30 64 H 163/98 89 L 09/08/18 13:10 128 H 20 113/96 97 09/08/18 13:00 142 H 14 161/95 98 09/08/18 12:30 133/102 09/08/18 12:10 142 H 18 163/98 09/08/18 12:00 133/102 09/08/18 11:30 134 H 29 H 133/102 96 09/08/18 11:10 130 H 18 09/08/18 11:00 135 H 31 H 96 09/08/18 10:49 146 H 21 95 09/08/18 10:07 97.7 F 153 H 24 108/75 96 Intake and Output 09/08/18 09/08/18 09/09/18 14:59 22:59 06:59 Intake Total 451.157 Balance 451.157 Intake: Intake, IV Titration 451.157 Amount Heparin Sod,Pork in 0.45% 451.157 NaCl 25,000 unit In 0.45 % NaCl 1 500ml.bag @ 14.9 UNITS/KG/HR 45.95 mls/hr IV .[id number] [facility] Rx#: [id number] Other: Weight 154.221 kg PHYSICAL EXAMINATION: Patient is lying in the bed comfortably, no acute distress, awake alert and oriented.. HEENT: Normocephalic. Neck is supple. Pupils reactive. Nostrils clear. Oral cavity is moist. Ears reveal no drainage. Neck reveals no JVD, carotid bruits, or thyromegaly. CHEST EXAMINATION: Trachea is central. Symmetrical expansion. Bilateral rhonchi and prolonged expiration. CARDIAC: Normal S1, S2 with no gallops. No murmurs ABDOMEN: Soft. Bowel sounds normal. No organomegaly. No abdominal bruits. Extremities: Bilateral lower extremities lymphedema. No clubbing or cyanosis Neurologically awake, alert, oriented x3 with well-coordinated movements. No focal deficits noted Skin: No rash or skin lesions. Psychiatric: Coperative. Nonsuicidal Musculoskeletal: No joint swelling or deformity. Normal range of motion. Results CBC & Chem 7: 09/08/18 11:20 09/08/18 11:20 Labs: Abnormal Lab Results - Last 24 Hours (Table) 09/08/18 09/08/18 09/08/18 Range/Units 11:20 11:20 11:20 WBC 14.1 H (3.8-10.6) k/uL Neutrophils # 11.2 H (1.3-7.7) k/uL APTT (22.0-30.0) sec Potassium 5.3 H (3.5-5.1) mmol/L Chloride 108 H (98-107) mmol/L Glucose 108 H (74-99) mg/dL Troponin I 0.258 H* (0.000-0.034) ng/mL 09/08/18 Range/Units 19:44 WBC (3.8-10.6) k/uL Neutrophils # (1.3-7.7) k/uL APTT 78.5 H (22.0-30.0) sec Potassium (3.5-5.1) mmol/L Chloride (98-107) mmol/L Glucose (74-99) mg/dL Troponin I (0.000-0.034) ng/mL Thrombosis Risk Factor Assmnt - DVT/VTE Prophylaxis DVT/VTE Prophylaxis: Pharmacologic Prophylaxis ordered - Choose All That Apply Each Factor Represents 1 point: Age 41-60 years Thrombosis Risk Factor Assessment Total Risk Factor Score: 1 Thrombosis Risk Factor Assessment Level: Low Risk Assessment and Plan Assessment: Massive pulmonary embolism with right ventricular strain Elevated troponin level secondary to right ventricular strain Acute lower extremity DVT Family history of pulmonary embolism in his brother Mild hyperkalemia 5.3 Recent history of pulmonary embolism about a year ago. Stopped taking Coumadin since November 2017 Previous history of smoking Bilateral lower extremity chronic lymphedema Morbid obesity with BMI 43.7 Seborrheic dermatitis history Anxiety Plan: Patient will be continued on IV heparin and monitor closely in the MICU. Cardiology was consulted due to massive pulmonary embolism. Continue with pain management and monitor closely. Prognosis is guarded. Further recommendations based on the clinical course. Time with Patient: Greater than 30
[2018-09-09 03:58] LABS: Basophils # (A) 0.1 k/uL (0-0.2); Basophils % (A) 1 %; Eosinophils # (A) 0.2 k/uL (0-0.7); Eosinophils % (A) 2 %; HCT 48.3 % (39.0-53.0); HGB 15.4 gm/dL (13.0-17.5); Lymphocytes # (A) 2.7 k/uL (1.0-4.8); Lymphocytes % (A) 22 %; MCH 30.6 pg (25.0-35.0); MCHC 31.9 g/dL (31.0-37.0); MCV 96.2 fL (80.0-100.0); Mean Platelet Volume 7.5; Monocytes % (A) 8 %; Neutrophils # (A) 8.2 k/uL (1.3-7.7); Neutrophils % (A) 65 %; Platelet Count 279 k/uL (150-450); RBC 5.03 m/uL (4.30-5.90); RDW 13.8 % (11.5-15.5); WBC 12.6 k/uL (3.8-10.6)
[2018-09-09 04:14] LABS: ALT 28 U/L (21-72); AST 29 U/L (17-59); Albumin 3.7 g/dL (3.5-5.0); Alkaline Phosphatase 90 U/L (38-126); Anion Gap 8 mmol/L; Blood Urea Nitrogen 12 mg/dL (9-20); Carbon Dioxide 22 mmol/L (22-30); Chloride 109 mmol/L (98-107); Glucose 108 mg/dL (74-99); Potassium 4.6 mmol/L (3.5-5.1); Sodium 139 mmol/L (137-145); Total Protein 6.9 g/dL (6.3-8.2)
[2018-09-09] MEDS: HEPARIN SODIUM,PORCINE 5,000 UNIT/ML 1 ML VIAL IV PRN (04:34)
[2018-09-09 08:47] LABS: Glucose,Whole Blood 137 mg/dL (75-99)
[2018-09-09] MEDS ORDERED: tPA (Alteplase) PER PHARMACY 1 EACH MISC MISCELLANE PRN (08:51)
[2018-09-09] MEDS ORDERED: tPA (Alteplase) PER PHARMACY 1 EACH MISC MISCELLANE ONE (08:51)
[2018-09-09] MEDS ORDERED: ALTEPLASE 100 MG in EMPTY BAG 1 BAG IV STA (08:52)
[2018-09-09] MEDS ORDERED: SODIUM BICARB 8.4% 50 ML SYR (1 MEQ/ML) ONE (08:55)
[2018-09-09] MEDS ORDERED: EPINEPHrine 10 ML SYRINGE (0.1 MG/ML) ONE (08:55)
[2018-09-09] MEDS ORDERED: IPRATROPIUM-ALBUTEROL 3 ML NEB INHALATION PRN (09:37)
[2018-09-09 09:42] LABS: Glucose,Whole Blood 218 mg/dL (75-99)
--- NOTE | 2018-09-09 09:47 | P.CRDCN ---
History of Present Illness Consult date: 09/09/18 Requesting physician: Clint Culp Reason for Consult (text): PE Chief complaint: Shortness of breath History of present illness: This is a pleasant 52-year-old gentleman with history of obesity, chronic lymphedema and cellulitis of his bilateral lower extremities, anxiety, history of pulmonary embolism and DVT approximately one year ago. Patient apparently stopped taking his medication including Lasix and Coumadin in October or November of this year. He presented to the hospital on this occasion with symptoms of fairly sudden onset of shortness of breath. Chest x- ray on arrival did not reveal any acute process. CTA of the chest revealed massive bilateral pulmonary embolism with evidence of right ventricular enlargement suggestive of right ventricular strain pattern. A 7 mm and 4 mm right lower lobe pulmonary nodule also noted. Venous duplex study positive for acute DVT in the right popliteal vein. EKG on admission here showed a sinus tachycardia with S1 Q3 T3 pattern. Blood pressure on arrival here 108/70 with a heart rate of 150, 96% on room air, 97.7 temperature. Patient was initiated on IV heparin. No echocardiogram with Doppler study was performed. Laboratory data was reviewed, white blood cell count on admission 14.1, 12.6 this morning, hemoglobin 15.4, platelet count 279. Sodium 139, potassium 4.6, BUN 12, creatinine 0.9. Troponin 0.258. At the time of my examination this morning patient was sitting up in the chair at bedside, shortly after leaving the room the patient became unresponsive requiring CPR. We did get a pulse and blood pressure back and shortly thereafter he again became unresponsive, requiring CPR , patient ultimately did receive TPA, was intubated and now will be transferred to the intensive care unit. Past Medical History Past Medical History: Deep Vein Thrombosis (DVT), Pulmonary Embolus (PE) Additional Past Medical History / Comment(s): x-smoker, seborrheic dermatitits, keyur leg lympg edema, anxiety History of Any Multi-Drug Resistant Organisms: None Reported Past Surgical History: Cholecystectomy, Hernia Repair Additional Past Surgical History / Comment(s): left achillies tendon repair 1974 , umb hernia repair Past Anesthesia/Blood Transfusion Reactions: No Reported Reaction Smoking Status: Former smoker - Past Family History Brother(s) Family Medical History: Pulmonary Embolus Additional Family Medical History / Comment(s): CABG Mother Family Medical History: COPD, Pneumonia Additional Family Medical History / Comment(s): non-smoker. at age 89 Father Family Medical History: Myocardial Infarction ([place]) Additional Family Medical History / Comment(s): smoker, mi - age 64 Medications and Allergies Home Medications Medication Instructions Recorded Confirmed Type Multivitamin,Therapeutic [Thera] 1 tab PO DAILY 09/08/18 09/08/18 History Naproxen Sodium [Aleve] 220 mg PO DAILY 09/08/18 09/08/18 History Allergies Allergy/AdvReac Type Severity Reaction Status Date / Time No Known Allergies Allergy Verified 09/08/18 11:26 Physical Exam Vitals: Vital Signs Temp Pulse Pulse Resp BP BP Pulse Ox 09/09/18 03:56 96.4 F L 114 H 20 131/66 96 09/09/18 00:00 98.2 F 100 20 121/61 96 09/08/18 20:11 93 L 09/08/18 20:00 119 H 20 09/08/18 18:38 97.4 F L 128 H 20 134/84 98 09/08/18 18:23 97.7 F 124 H 20 139/98 96 09/08/18 17:30 124 H 20 139/98 96 09/08/18 17:00 131 H 22 146/89 97 09/08/18 16:30 131 H 18 154/103 99 09/08/18 16:00 131 H 17 136/82 09/08/18 15:30 141 H 22 125/86 99 09/08/18 15:03 128 H 20 113/96 97 09/08/18 15:00 128 H 20 113/96 97 09/08/18 14:30 131 H 18 129/77 97 09/08/18 14:00 133 H 22 97 09/08/18 13:30 64 H 163/98 89 L 09/08/18 13:10 128 H 20 113/96 97 09/08/18 13:00 142 H 14 161/95 98 09/08/18 12:30 133/102 09/08/18 12:10 142 H 18 163/98 09/08/18 12:00 133/102 09/08/18 11:30 134 H 29 H 133/102 96 09/08/18 11:10 130 H 18 09/08/18 11:00 135 H 31 H 96 09/08/18 10:49 146 H 21 95 09/08/18 10:07 97.7 F 153 H 24 108/75 96 Intake and Output 09/08/18 09/09/18 09/09/18 22:59 06:59 14:59 Intake Total 451.157 590.669 240 Output Total 1000 Balance 451.157 -409.331 240 Intake: Intake, IV Titration 451.157 240.669 Amount Heparin Sod,Pork in 0.45% 451.157 240.669 NaCl 25,000 unit In 0.45 % NaCl 1 500ml.bag @ 14.9 UNITS/KG/HR 45.95 mls/hr IV .[id number] [facility] Rx#: [id number] Oral 350 240 Output: Urine 1000 Other: Voiding Method Urinal # Voids 2 Weight 149.9 kg PHYSICAL EXAMINATION: GENERAL: 52-year-old gentleman in no acute distress at the time of my examination HEENT: Head is atraumatic, normocephalic. Pupils equal, round. Sclera anicteric. Conjunctiva are clear. Mucous membranes of the mouth are moist. Neck is supple. Unable to assess jugular venous pressure . HEART EXAMINATION: Heart S1 and S2 tachycardic, no murmur or gallop heard. CHEST EXAMINATION: Lungs are clear with diminished air entry to bilateral bases. ABDOMEN: Soft, obese, nontender. Bowel sounds are heard. No organomegaly noted. EXTREMITIES: 1+ peripheral pulses with evidence of significant bilateral peripheral edema, right leg larger than the left. NEUROLOGIC patient is awake, alert and oriented ?-3. . Results 09/09/18 02:54 09/09/18 02:54 Cardiac Enzymes 09/08/18 09/08/18 09/09/18 Range/Units 11:20 11:20 02:54 AST 29 29 (17-59) U/L CK-MB (CK-2) 1.7 (0.0-2.4) ng/mL Troponin I 0.258 H* (0.000-0.034) ng/mL Coagulation 09/08/18 09/08/18 09/09/18 Range/Units 11:20 19:44 02:54 PT 10.2 (9.0-12.0) sec APTT 24.2 78.5 H 46.6 H (22.0-30.0) sec CBC 10/16/18 10/17/18 Range/Units 11:20 02:54 WBC 14.1 H 12.6 H (3.8-10.6) k/uL RBC 5.31 5.03 (4.30-5.90) m/uL Hgb 16.8 15.4 (13.0-17.5) gm/dL Hct 50.0 48.3 (39.0-53.0) % Plt Count 289 279 (150-450) k/uL Comprehensive Metabolic Panel 09/08/18 09/09/18 Range/Units 11:20 02:54 Sodium 142 139 (137-145) mmol/L Potassium 5.3 H 4.6 (3.5-5.1) mmol/L Chloride 108 H 109 H (98-107) mmol/L Carbon Dioxide 25 22 (22-30) mmol/L BUN 14 12 (9-20) mg/dL Creatinine 1.22 0.99 (0.66-1.25) mg/dL Glucose 108 H 108 H (74-99) mg/dL Calcium 9.5 9.0 (8.4-10.2) mg/dL AST 29 29 (17-59) U/L ALT 34 28 (21-72) U/L Alkaline Phosphatase 96 90 (38-126) U/L Total Protein 7.7 6.9 (6.3-8.2) g/dL Albumin 4.2 3.7 (3.5-5.0) g/dL Current Medications Generic Name Dose Route Start Last Admin Trade Name Freq PRN Reason Stop Dose Admin Heparin Sodium (Porcine) 0 unit 09/08/18 10:49 09/09/18 04:34 Heparin IV 4,000 unit PER PROTOCOL PRN Administration Low PTT Protocol Heparin Sodium/Sodium Chloride 500 mls @ 45.95 mls/hr 09/08/18 11:00 04:34 25,000 unit/ Sodium Chloride IV 14.9 units/kg/hr .[id number] [facility] 45.95 mls/hr Titration Protocol 14.9 UNITS/KG/HR Alteplase, Recombinant 100 mg/ 100 mls @ 50 mls/hr 09/09/18 08:52 IV Solution IV 09/09/18 10:51 ONCE STA Multivitamins 1 each 09/09/18 12:00 Theragran PO DAILY@1200 [facility] Naloxone HCl 0.2 mg 09/08/18 15:00 Narcan IV Q2M PRN Opioid Reversal Intake and Output 09/08/18 09/09/18 09/09/18 22:59 06:59 14:59 Intake Total 451.157 590.669 240 Output Total 1000 Balance 451.157 -409.331 240 Intake: Intake, IV Titration 451.157 240.669 Amount Heparin Sod,Pork in 0.45% 451.157 240.669 NaCl 25,000 unit In 0.45 % NaCl 1 500ml.bag @ 14.9 UNITS/KG/HR 45.95 mls/hr IV .[id number] [facility] Rx#: [id number] Oral 350 240 Output: Urine 1000 Other: Voiding Method Urinal # Voids 2 Weight 149.9 kg 09/09/18 02:54 09/09/18 02:54 EKG Interpretations (text) EKG on admission here showed a sinus tachycardia with S1 Q3 T3 pattern consistent with pulmonary embolism. Assessment and Plan Plan: Assessment and plan #1 massive acute bilateral pulmonary embolism, with evidence of right ventricular strain on CTA, elevated troponin. #2 acute lower extremity right-sided DVT #3 history of prior PE and DVT one year ago stopped taking Coumadin in October #4 family history of PE and his brother #5 prior history of smoking #6 chronic bilateral lymphedema to the lower extremities #7 morbid obesity Plan Patient has been intubated, TPA was administered, he is currently being transferred to the intensive care unit. Patient is currently on Norepinephrine. An echocardiogram with Doppler study will be requested, overall prognosis guarded. We will continue to follow. DNP note has been reviewed, I agree with a documented findings and plan of care. Patient was seen and examined.
--- NOTE | 2018-09-09 09:49 | P.CNPUL ---
History of Present Illness Consult date: 09/09/18 Reason for consult: dyspnea, hypoxemia, pulmonary embolism, abnormal CXR/CT Chief complaint: Massive PE History of present illness: Pulmonary consult dated 09/09/2018 52-year-old male who apparently presented to the emergency department yesterday with complaints of shortness of breath. The patient apparently has a history of lymphedema deep venous thrombosis and pulmonary embolism and presented with shortness of breath. He apparently was diagnosed with PE last year and treated with Coumadin for 6 months. He was apparently told that his DVT and pulmonary embolism was secondary to sedentary lifestyle and sleeping in a sitting position. The patient apparently presents with significant shortness of breath and there is a Doppler which showed a right lower extremity DVT and a CT and urine which showed massive bilateral pulmonary embolism with acute enlargement of the right ventricle and right heart strain. The patient that was admitted to the general medical floor with IV heparin therapy. Today, a code was called on the third floor. The patient apparently had a brief episode of cardiopulmonary arrest. Subsequent to that, the patient developed noman respiratory distress and cardiopulmonary arrest. He had a prolonged resuscitation with difficulty in placing an endotracheal tube. Finally, anesthesia used a glide scoped and placed endotracheal tube. I did not attempt placement. The patient had to be paralyzed with succinylcholine to relax the upper airway muscles. Patient underwent significant cardiopulmonary resuscitation a right groin IV was placed and TPA was given by the ER doctor. Fluids were run wide open and he received multiple rounds of epinephrine and bicarb and also norepinephrine. Finally, a blood pressure was achieved the patient was transferred to the ICU. Apparently his past medical history is positive for DVT and pulmonary embolus him for which she received 6 months of warfarin and a previous cholecystectomy and hernia repair. He is a former smoker. Review of Systems ROS unobtainable: due to endotracheal tube, due to mental status Past Medical History Past Medical History: Deep Vein Thrombosis (DVT), Pulmonary Embolus (PE) Additional Past Medical History / Comment(s): x-smoker, seborrheic dermatitits, keyur leg lympg edema, anxiety History of Any Multi-Drug Resistant Organisms: None Reported Past Surgical History: Cholecystectomy, Hernia Repair Additional Past Surgical History / Comment(s): left achillies tendon repair 1974 , umb hernia repair Past Anesthesia/Blood Transfusion Reactions: No Reported Reaction Smoking Status: Former smoker - Past Family History Brother(s) Family Medical History: Pulmonary Embolus Additional Family Medical History / Comment(s): CABG Mother Family Medical History: COPD, Pneumonia Additional Family Medical History / Comment(s): non-smoker. at age 89 Father Family Medical History: Myocardial Infarction ([place]) Additional Family Medical History / Comment(s): smoker, mi - age 64 Medications and Allergies Home Medications Medication Instructions Recorded Confirmed Type Multivitamin,Therapeutic [Thera] 1 tab PO DAILY 09/08/18 09/08/18 History Naproxen Sodium [Aleve] 220 mg PO DAILY 09/08/18 09/08/18 History Allergies Allergy/AdvReac Type Severity Reaction Status Date / Time No Known Allergies Allergy Verified 09/08/18 11:26 Physical Exam Osteopathic Statement: *. No significant issues noted on an osteopathic structural exam other than those noted in the History and Physical/Consult. Vitals: Vital Signs Temp Pulse Pulse Resp BP BP Pulse Ox 09/09/18 03:56 96.4 F L 114 H 20 131/66 96 09/09/18 00:00 98.2 F 100 20 121/61 96 09/08/18 20:11 93 L 09/08/18 20:00 119 H 20 09/08/18 18:38 97.4 F L 128 H 20 134/84 98 09/08/18 18:23 97.7 F 124 H 20 139/98 96 09/08/18 17:30 124 H 20 139/98 96 09/08/18 17:00 131 H 22 146/89 97 09/08/18 16:30 131 H 18 154/103 99 09/08/18 16:00 131 H 17 136/82 09/08/18 15:30 141 H 22 125/86 99 09/08/18 15:03 128 H 20 113/96 97 09/08/18 15:00 128 H 20 113/96 97 09/08/18 14:30 131 H 18 129/77 97 09/08/18 14:00 133 H 22 97 09/08/18 13:30 64 H 163/98 89 L 09/08/18 13:10 128 H 20 113/96 97 09/08/18 13:00 142 H 14 161/95 98 09/08/18 12:30 133/102 09/08/18 12:10 142 H 18 163/98 09/08/18 12:00 133/102 09/08/18 11:30 134 H 29 H 133/102 96 09/08/18 11:10 130 H 18 09/08/18 11:00 135 H 31 H 96 09/08/18 10:49 146 H 21 95 09/08/18 10:07 97.7 F 153 H 24 108/75 96 Intake and Output 09/08/18 09/09/18 09/09/18 22:59 06:59 14:59 Intake Total 451.157 590.669 240 Output Total 1000 Balance 451.157 -409.331 240 Intake: Intake, IV Titration 451.157 240.669 Amount Heparin Sod,Pork in 0.45% 451.157 240.669 NaCl 25,000 unit In 0.45 % NaCl 1 500ml.bag @ 14.9 UNITS/KG/HR 45.95 mls/hr IV .[id number] [facility] Rx#: [id number] Oral 350 240 Output: Urine 1000 Other: Voiding Method Urinal # Voids 2 Weight 149.9 kg Unresponsive, currently in cardiopulmonary arrest with ongoing cardiopulmonary resuscitation. HEENT examination is grossly unremarkable. Mucous membranes are moist. Neck supple. Full range of motion. No adenopathy thyromegaly or neck vein distention. Cardiovascular examination tachycardia. Heart rate over 100. Heart sounds are distant. Lungs reveal coarse bilateral breath sounds. Breath sounds equal bilaterally. No wheezes or crackles. Abdomen obese, without bowel sounds. Extremities are cool, with decreased pulses in the feet or reticularis Skin is mottled Neurologic examination could not be assessed as the patient is unresponsive Results - Laboratory Findings CBC and BMP: 09/09/18 02:54 09/09/18 02:54 PT/INR, D-dimer PT 10.2 sec (9.0-12.0) 09/08/18 11:20 INR 1.0 (<1.2) 09/08/18 11:20 Abnormal lab findings: Abnormal Labs 09/08/18 09/08/18 09/08/18 11:20 11:20 11:20 WBC 14.1 H Neutrophils # 11.2 H APTT Potassium 5.3 H Chloride 108 H Glucose 108 H POC Glucose (mg/dL) Troponin I 0.258 H* 09/08/18 09/09/18 09/09/18 19:44 02:54 02:54 WBC 12.6 H Neutrophils # 8.2 H APTT 78.5 H Potassium Chloride 109 H Glucose 108 H POC Glucose (mg/dL) Troponin I 09/09/18 09/09/18 02:54 08:45 WBC Neutrophils # APTT 46.6 H Potassium Chloride Glucose POC Glucose (mg/dL) 137 H Troponin I - Diagnostic Findings Chest x-ray: report reviewed, image reviewed CT scan - chest: report reviewed, image reviewed U/S of Legs: report reviewed, image reviewed (Labs x-rays and medications are reviewed.) Assessment and Plan Assessment: Assessment Massive pulmonary embolism with evidence of right heart strain and acute dilatation of the right ventricle subsequent cardiopulmonary arrest prolonged cardiopulmonary resuscitation and eventual return of spontaneous circulation Previous history of DVT and pulmonary embolism, treated with 6 months of warfarin Acute DVT, right lower extremity Systemic administration of TPA on this admission Morbid obesity. Previous history of tobacco use History of anxiety Status post cholecystectomy and hernia repair Plan: Plan dated 09/09/2018 After a prolonged resuscitation and difficult intubation, the patient was eventually transferred back up to the ICU. The patient will be placed on the mechanical ventilator with settings of tidal volume 500, 100%, PEEP of 5, and rate of 24 breaths per minute. We'll place him on the volume assist control mode. We'll see if we can't place lines in the patient. The right groin line is probably a dirty line. He did receive systemic TPA. White count is 12.6, hemoglobin 15.4, hematocrit 48.3 and platelet count 279,000. PTT was 46.6. Sodium 139 potassium 4.6 chloride 109 CO2 22 BUN and creatinine were 12 and 0.99. Troponin was 0.258. Chest x-ray, labs, medications, computed tomography scan, and Doppler of lower extremity are reviewed. Medications are reviewed. Prognosis is guarded. Critical care time 40 minutes Time with Patient: Greater than 30
[2018-09-09] MEDS ORDERED: CISATRACURIUM 2 MG/ML 5 ML VIAL IV ONE ×2 (09:58→12:15)
--- NOTE | 2018-09-09 10:26 | PCN ---
PROCEDURE NOTE PROCEDURE: Left internal jugular triple-lumen catheter. PREOPERATIVE DIAGNOSIS: Administration of fluids and pressors. POSTOPERATIVE DIAGNOSIS: Administration of fluids and pressors. A time-out was completed verifying correct patient, procedure, site, positioning, and implant(s) or special equipment if applicable. The patient was placed in a dependent position appropriate for triple lumen catheter placement based on the vein to be cannulated. The patient's left neck was prepped and draped in sterile fashion. 1% Lidocaine was used to anesthetize the surrounding skin area. A triple lumen 9F Cordis catheter was introduced into the internal jugular using Seldinger technique. The catheter was threaded smoothly over the guide wire and appropriate blood return was obtained. Each lumen of the catheter was evacuated of air and flushed with sterile saline. The catheter was then sutured in place to the skin and a sterile dressing applied. Perfusion to the extremity distal to the point of catheter insertion was checked and found to be adequate. IMPRESSION: There was no immediate complication. The catheter was sutured in place. Sterile dressing was applied by the nurse. There was good blood return from all 3 ports. A chest x-ray was ordered to check placement. MMODL / IJN: [id number] /
[2018-09-09 10:27] LABS: ABG Base Excess -14.7 mmol/L; ABG HCO3 18 mmol/L (21-25); ABG Oxygen Saturation 95.1 % (94-97); ABG PO2 118 mmHg (83-108); ABG TCO2 20 mmol/L (19-24)
[2018-09-09 10:27] LABS: Glucose,Whole Blood 266 mg/dL (75-99)
--- NOTE | 2018-09-09 10:32 | PCN ---
PROCEDURE NOTE RIGHT RADIAL ARTERIAL LINE PLACEMENT: Indications: Hemodynamic monitoring. A time-out was completed verifying correct patient, procedure, site, positioning, and implant(s) or special equipment if applicable. Naren's test was performed to ensure adequate perfusion. The patient's right wrist was prepped and draped in sterile fashion. 1% Lidocaine was used to anesthetize the area. An 18G Arrow arterial line was introduced into the right radial artery. The catheter was threaded over the guide wire and the needle was removed with appropriate pulsatile blood return. Blood loss was minimal. The catheter was then sutured in place to the skin and a sterile dressing applied. Perfusion to the extremity distal to the point of catheter insertion was checked and found to be adequate. The patient tolerated the procedure well and there were no complications. Right radial arterial line placement was successful, good waveform noted, line was flushed, it was sutured in place. There was no immediate complication. MMODL / IJN: [id number] /
[2018-09-09] MEDS: HEPARIN SOD,PORK IN 0.45% NACL 25,000 UNIT in 0.45% NACL 1 500ML.BAG IV SCH ×2 (10:34→21:17)
--- NOTE | 2018-09-09 10:42 | XR ---
EXAMINATION TYPE: XR chest 1V portable DATE OF EXAM: 09/09/2018 Comparison: 09/08/2018 Clinical History: 52-year-old male intubated, code Findings: Low lung volumes. Heart mildly enlarged. Left IJ CVC tip in the right atrium. Diffuse interstitial pr ominence. Opacities at the left greater than right lung bases. Tubing is looped along the midline. Th e tip is located superiorly beyond the [id number]. Impression: 1. Tubing looped along the midline. The tip is located superiorly beyond the [id number]. Findings called to [facility] in [facility] ICU at 10:35am. We are told that the patient had attempt at NG tube placem ent which ended up looping up and was removed. The patient's ET tube is not visualized and may be hig h in position. Consider reassessing the patient and repeating the radiograph centering higher up. 2. Hypoventilatory changes with suspected superimposed mild CHF. 3. Small effusions and patchy bibasilar areas of atelectasis and/or consolidation.
[2018-09-09] MEDS ORDERED: SODIUM BICARB 8.4% 50 ML SYR (1 MEQ/ML) IV ONE (10:46)
[2018-09-09 10:51] LABS: ABG PCO2 80 mmHg (35-45); ABG PH <7.00 (7.35-7.45)
[2018-09-09 11:05] LABS: Calcium 7.6 mg/dL (8.4-10.2); Magnesium 2.7 mg/dL (1.6-2.3); Potassium 4.8 mmol/L (3.5-5.1)
[2018-09-09 11:24] LABS: Phosphorus 12.9 mg/dL (2.5-4.5)
[2018-09-09 11:42] LABS: INR 1.9 (<1.2); Prothrombin Time 17.2 sec (9.0-12.0)
[2018-09-09 11:47] LABS: ABG Base Excess -4.9 mmol/L; ABG HCO3 23 mmol/L (21-25); ABG Oxygen Saturation 95.7 % (94-97); ABG PCO2 62 mmHg (35-45); ABG PO2 106 mmHg (83-108); ABG TCO2 25 mmol/L (19-24)
[2018-09-09 11:49] LABS: ABG PH 7.19 (7.35-7.45)
[2018-09-09] MEDS ORDERED: IPRATROPIUM-ALBUTEROL 3 ML NEB INHALATION SCH (12:00)
[2018-09-09 12:04] LABS: Partial Thromboplastin Time >200.0 sec (22.0-30.0)
--- NOTE | 2018-09-09 12:15 | XR ---
EXAMINATION TYPE: XR chest 1V DATE OF EXAM: 09/09/2018 COMPARISON: Earlier today HISTORY: 52-year-old male ET tube repositioned TECHNIQUE: Single frontal view of the chest is obtained. FINDINGS: Left-sided CVC tip redemonstrated in the right atrium. ET tube tip is high located 10 cm from the car vern just above the level of the thoracic inlet. NG tube now courses below the diaphragm. Otherwise, a ppearance of the chest is stable with low lung volumes, small effusions, and interstitial changes wit h patchy bibasilar opacities. IMPRESSION: 1. High positioning of the ET tube, tip located 10 cm from the terri just above the level of the tho racic inlet. Consider advancement by 5 cm and reassessing at follow-up. 2. NG tube now courses below the diaphragm. 3. Otherwise, stable exam, possible mild CHF. Small effusions with adjacent atelectasis and/or consol idation.
[2018-09-09] MEDS ORDERED: SODIUM CHLORIDE 0.9% 1,000 ML IV ONE ×2 (12:18→12:21)
[2018-09-09] MEDS ORDERED: TERBUTALINE 1 MG/ML VIAL SQ ONE (12:46)
[2018-09-09] MEDS ORDERED: CISATRACURIUM 200 MG in SODIUM CHLORIDE 0.9% 180 ML IV SCH (13:00)
[2018-09-09] MEDS: IPRATROPIUM-ALBUTEROL 3 ML NEB INHALATION SCH ×4 (13:24→23:06)
[2018-09-09] MEDS: DEXTROSE 5% IN WATER 1,000 ML with SODIUM BICARB (1 MEQ/ML) 100 ML IV SCH (13:25)
[2018-09-09] MEDS: MULTIVITAMINS, THERA 1 EACH TAB PO SCH (13:26)
[2018-09-09] MEDS: PROPOFOL 1,000 MG in EMPTY BAG 1 BAG IV SCH ×3 (13:55→21:35)
[2018-09-09 15:31] LABS: ABG Base Excess -5.6 mmol/L; ABG HCO3 21 mmol/L (21-25); ABG Oxygen Saturation 98.6 % (94-97); ABG PCO2 47 mmHg (35-45); ABG PH 7.27 (7.35-7.45); ABG PO2 220 mmHg (83-108); ABG TCO2 23 mmol/L (19-24)
[2018-09-09 15:39] LABS: Appearance,Urine Cloudy (Clear); Bacteria,Urine Rare /hpf; Bilirubin,Urine Negative (Negative); Blood,Urine Moderate (Negative); Color,Urine Yellow; Glucose,Urine (UA) 3+ (Negative); Hyphae Yeast, Urine Rare /hpf; Ketones,Urine 1+ (Negative); Leukocyte Esterase,Urine Negative (Negative); Mucus,Urine Rare /hpf; Nitrite,Urine Negative (Negative); PH, Urine 5.5 (5.0-8.0); Protein,Urine 2+ (Negative); RBC,Urine 6 /hpf (0-5); Specific Gravity,Urine 1.015 (1.001-1.035); Squamous Epithelial Cell,Urine 1 /hpf (0-4); WBC,Urine 14 /hpf (0-5)
[2018-09-09 17:01] LABS: Basophils # (A) 0.1 k/uL (0-0.2); Basophils % (A) 0 %; Eosinophils % (A) 0 %; HCT 42.8 % (39.0-53.0); HGB 14.1 gm/dL (13.0-17.5); Lymphocytes # (A) 1.2 k/uL (1.0-4.8); Lymphocytes % (A) 5 %; MCH 31.8 pg (25.0-35.0); MCV 96.4 fL (80.0-100.0); Mean Platelet Volume 7.4; Monocytes # (A) 1.1 k/uL (0-1.0); Monocytes % (A) 4 %; Neutrophils # (A) 23.8 k/uL (1.3-7.7); Neutrophils % (A) 90 %; Platelet Count 295 k/uL (150-450); RBC 4.44 m/uL (4.30-5.90); RDW 13.5 % (11.5-15.5); WBC 26.4 k/uL (3.8-10.6)
[2018-09-09] MEDS: CHLORHEXIDINE GLUCONATE 15 ML CUP MUCOUS MEM SCH (21:40)
[2018-09-09 22:10] LABS: HCT 40.3 % (39.0-53.0); HGB 13.4 gm/dL (13.0-17.5); MCH 31.6 pg (25.0-35.0); MCHC 33.2 g/dL (31.0-37.0); Mean Platelet Volume 7.6; Platelet Count 285 k/uL (150-450); RBC 4.24 m/uL (4.30-5.90); RDW 13.4 % (11.5-15.5); WBC 20.3 k/uL (3.8-10.6)
[2018-09-09 23:05] LABS: INR 1.7 (<1.2); Partial Thromboplastin Time 35.3 sec (22.0-30.0); Prothrombin Time 15.5 sec (9.0-12.0)
[2018-09-09 23:47] LABS: Glucose,Whole Blood 166 mg/dL (75-99)
--- NOTE | 2018-09-10 00:31 | P.PN ---
Subjective Progress Note Date: 09/09/18 Principal diagnosis: Massive pulmonary embolism Acute cardiopulmonary arrest status post CPR and intubation Patient is a 52-year-old male with a known history of chronic bilateral lower extremity lymphedema and history of pulmonary embolism about a year ago, currently not taking Coumadin for the past 6-8 months came to ER with complaints of acute worsening shortness of breath since yesterday. Patient says that he has been having shortness of breath for the last couple of weeks but suddenly got worse yesterday. Patient was told that his DVT and pulmonary embolus was secondary to sedentary lifestyle and sleeping in a sitting position. Patient states he took his Coumadin for about 6 months. He was so several follow-up appointment in November for repeat evaluation however he did not follow-up with that appointment. He stopped his Coumadin in November. Denies any constitutional symptoms. Patient feels much more short of breath with exertion. Chest pain. He feels as though both of his legs are much more edematous than usual suspicion is right lower extremity. Lower extremity duplex scan showed acute DVT right popliteal vein through the proximal calf veins CTA chest showed massive bilateral pulmonary embolism with right ventricular enlargement suggestive of right ventricular strain correlate clinically. A 7 mm and 4 mm right lower lobe pulmonary nodule not seen previous exam subpleural in location could be inflammatory. WBC 14.1 Troponin 0.258 Potassium 5.3 On 09/09/2018 Patient had a brief episode of cardiopulmonary arrest this morning and developed respiratory distress. Subsequently patient was intubated and was transferred to MICU. Patient had a difficult intubation. Patient was given TPA by ER physician. Patient also received multiple doses of epinephrine and sodium bicarbonate. Patient is currently on Levophed drip. Being continued on heparin drip as well. Patient is currently sedated. Initial ABG showed pH 7.0, pCO2 80, pO2 118 Patient was seen by cardiology and pulmonary. Active Medications Generic Name Dose Route Start Last Admin Trade Name Freq PRN Reason Stop Dose Admin Albuterol/Ipratropium 3 ml 09/09/18 09:37 Duoneb 0.5 Mg-3 Mg/3 Ml Soln INHALATION RT-Q2H PRN Shortness Of Breath Or Wheezing Albuterol/Ipratropium 3 ml 09/09/18 12:00 09/09/18 23:06 Duoneb 0.5 Mg-3 Mg/3 Ml Soln INHALATION 3 ml RT-Q4H GIOVANNY Administration Chlorhexidine Gluconate 15 ml 09/09/18 21:00 09/09/18 21:40 Peridex MUCOUS MEM 15 ml BID GIOVANNY Administration Heparin Sodium (Porcine) 0 unit 09/08/18 10:49 09/09/18 04:34 Heparin IV 4,000 unit PER PROTOCOL PRN Administration Low PTT Protocol Heparin Sodium/Sodium Chloride 500 mls @ 45.95 mls/hr 09/08/18 11:00 23:15 25,000 unit/ Sodium Chloride IV Infused .[id number] GIOVANNY Titration Protocol 14.9 UNITS/KG/HR Propofol 1,000 mg/ IV Solution 100 mls @ 0 mls/hr 09/09/18 09:45 09/09/18 21: 35 IV 25 mcg/kg/min .Q0M GIOVANNY 22.48 mls/hr Administration Protocol Titrate Norepinephrine Bitartrate 16 250 mls @ 0 mls/hr 09/09/18 10:00 mg/ Sodium Chloride IV .Q0M GIOVANNY Protocol Titrate Sodium Bicarbonate 100 ml/ 1,100 mls @ 75 mls/hr 09/09/18 12:00 09/09/18 13: 25 Dextrose/Water IV 75 mls/hr .[id number] GIOVANNY Administration Cisatracurium Besylate 200 mg/ 200 mls @ 4.49 mls/hr 09/09/18 13:00 09/09/18 19:30 Sodium Chloride IV 0 mcg/kg/min .Q24H GIOVANNY 0 mls/hr Titration Protocol 0.5 MCG/KG/MIN Multivitamins 1 each 09/09/18 12:00 09/09/18 13:26 Theragran PO Not Given DAILY@1200 GIOVANNY Naloxone HCl 0.2 mg 09/08/18 15:00 Narcan IV Q2M PRN Opioid Reversal Pantoprazole Sodium 40 mg 09/10/18 09:00 Protonix IVP DAILY [facility] Objective - Vital Signs Vital signs: Vital Signs Temp 97.7 F 09/09/18 16:00 Pulse 110 H 09/09/18 20:00 Resp 24 09/09/18 20:00 BP 136/65 09/09/18 20:00 Pulse Ox 92 L 09/09/18 20:00 Intake & Output 09/09/18 09/09/18 09/10/18 06:59 18:59 06:59 Intake Total 0427.971 4333.660 85 Output Total 1000 480 50 Balance 41.826 2754.660 35 Weight 149.9 kg Intake: IV 2640 85 0.9 40 10 Dextrose 5% in Water 1, 600 75 000 ml @ 75 mls/hr IV . [id number] GIOVANNY with Sodium Bicarb (1 Meq/ml) 100 ml Rx#:[id number] Sodium Chloride 0.9% 1, 2000 000 ml @ 999 mls/hr IV . Q1H1M ONE Rx#:[id number] Intake, IV Titration 691.826 354.660 Amount Heparin Sod,Pork in 0.45% 691.826 259.331 NaCl 25,000 unit In 0.45 % NaCl 1 500ml.bag @ 14.9 UNITS/KG/HR 45.95 mls/hr IV .[id number] GIOVANNY Rx#: [id number] Propofol 1,000 mg In 95.329 Empty Bag 1 bag @ Titrate IV .Q0M GIOVANNY Rx#: [id number] Oral 350 240 Output: Urine 1000 480 50 Other: Voiding Method Urinal Indwelling Catheter # Voids 2 1 ABP, PAP, CO, CI - Last Documented Arterial Blood Pressure 116/65 - Exam PHYSICAL EXAMINATION: Patient is lying in the bed comfortably, currently sedated and intubated HEENT: Normocephalic. Neck is supple. Pupils reactive. Nostrils clear. Oral cavity is moist. Ears reveal no drainage. Neck reveals no JVD, carotid bruits, or thyromegaly. CHEST EXAMINATION: Trachea is central. Symmetrical expansion. Bibasilar diminished air entry. Lung vicente clear to auscultation and percussion. CARDIAC: Normal S1, S2 with no gallops. No murmurs ABDOMEN: Soft. Bowel sounds normal. No organomegaly. No abdominal bruits. Extremities: Bilateral lower extremity lymphedema with 3+ edema. No clubbing or cyanosis Neurologically . Currently sedated and intubated. Skin: No rash or skin lesions except above. Psychiatric: Could not be assessed at this time. - Labs CBC & Chem 7: 09/09/18 21:50 09/09/18 10:30 Labs: Abnormal Lab Results - Last 24 Hours (Table) 09/09/18 09/09/18 09/09/18 Range/Units 02:54 02:54 02:54 WBC 12.6 H (3.8-10.6) k/uL Neutrophils # 8.2 H (1.3-7.7) k/uL Monocytes # (0-1.0) k/uL PT (9.0-12.0) sec INR (<1.2) APTT 46.6 H (22.0-30.0) sec ABG pH (7.35-7.45) ABG pCO2 (35-45) mmHg ABG pO2 (83-108) mmHg ABG HCO3 (21-25) mmol/L ABG Total CO2 (19-24) mmol/L ABG O2 Saturation (94-97) % Chloride 109 H (98-107) mmol/L Carbon Dioxide (22-30) mmol/L Creatinine (0.66-1.25) mg/dL Glucose 108 H (74-99) mg/dL POC Glucose (mg/dL) (75-99) mg/dL Calcium (8.4-10.2) mg/dL Phosphorus (2.5-4.5) mg/dL Magnesium (1.6-2.3) mg/dL Urine Protein (Negative) Urine Glucose (UA) (Negative) Urine Ketones (Negative) Urine Blood (Negative) Urine RBC (0-5) /hpf Urine WBC (0-5) /hpf Urine Bacteria (None) /hpf Urine Mucus (None) /hpf 09/09/18 09/09/18 09/09/18 Range/Units 08:45 09:41 10:24 WBC (3.8-10.6) k/uL Neutrophils # (1.3-7.7) k/uL Monocytes # (0-1.0) k/uL PT (9.0-12.0) sec INR (<1.2) APTT (22.0-30.0) sec ABG pH <7.00 L* (7.35-7.45) ABG pCO2 80 H* (35-45) mmHg ABG pO2 118 H (83-108) mmHg ABG HCO3 18 L (21-25) mmol/L ABG Total CO2 (19-24) mmol/L ABG O2 Saturation (94-97) % Chloride (98-107) mmol/L Carbon Dioxide (22-30) mmol/L Creatinine (0.66-1.25) mg/dL Glucose (74-99) mg/dL POC Glucose (mg/dL) 137 H 218 H (75-99) mg/dL Calcium (8.4-10.2) mg/dL Phosphorus (2.5-4.5) mg/dL Magnesium (1.6-2.3) mg/dL Urine Protein (Negative) Urine Glucose (UA) (Negative) Urine Ketones (Negative) Urine Blood (Negative) Urine RBC (0-5) /hpf Urine WBC (0-5) /hpf Urine Bacteria (None) /hpf Urine Mucus (None) /hpf 09/09/18 09/09/18 09/09/18 Range/Units 10:25 10:30 10:30 WBC (3.8-10.6) k/uL Neutrophils # (1.3-7.7) k/uL Monocytes # (0-1.0) k/uL PT 17.2 H (9.0-12.0) sec INR 1.9 H (<1.2) APTT >200.0 H* (22.0-30.0) sec ABG pH (7.35-7.45) ABG pCO2 (35-45) mmHg ABG pO2 (83-108) mmHg ABG HCO3 (21-25) mmol/L ABG Total CO2 (19-24) mmol/L ABG O2 Saturation (94-97) % Chloride (98-107) mmol/L Carbon Dioxide 16 L (22-30) mmol/L Creatinine 1.74 H (0.66-1.25) mg/dL Glucose 278 H (74-99) mg/dL POC Glucose (mg/dL) 266 H (75-99) mg/dL Calcium 7.6 L (8.4-10.2) mg/dL Phosphorus 12.9 H* (2.5-4.5) mg/dL Magnesium 2.7 H (1.6-2.3) mg/dL Urine Protein (Negative) Urine Glucose (UA) (Negative) Urine Ketones (Negative) Urine Blood (Negative) Urine RBC (0-5) /hpf Urine WBC (0-5) /hpf Urine Bacteria (None) /hpf Urine Mucus (None) /hpf 09/09/18 09/09/18 09/09/18 Range/Units 11:42 15:00 15:29 WBC (3.8-10.6) k/uL Neutrophils # (1.3-7.7) k/uL Monocytes # (0-1.0) k/uL PT (9.0-12.0) sec INR (<1.2) APTT (22.0-30.0) sec ABG pH 7.19 L* 7.27 L (7.35-7.45) ABG pCO2 62 H 47 H (35-45) mmHg ABG pO2 220 H (83-108) mmHg ABG HCO3 (21-25) mmol/L ABG Total CO2 25 H (19-24) mmol/L ABG O2 Saturation 98.6 H (94-97) % Chloride (98-107) mmol/L Carbon Dioxide (22-30) mmol/L Creatinine (0.66-1.25) mg/dL Glucose (74-99) mg/dL POC Glucose (mg/dL) (75-99) mg/dL Calcium (8.4-10.2) mg/dL Phosphorus (2.5-4.5) mg/dL Magnesium (1.6-2.3) mg/dL Urine Protein 2+ H (Negative) Urine Glucose (UA) 3+ H (Negative) Urine Ketones 1+ H (Negative) Urine Blood Moderate H (Negative) Urine RBC 6 H (0-5) /hpf Urine WBC 14 H (0-5) /hpf Urine Bacteria Rare H (None) /hpf Urine Mucus Rare H (None) /hpf 09/09/18 09/09/18 Range/Units 16:15 18:00 WBC 26.4 H (3.8-10.6) k/uL Neutrophils # 23.8 H (1.3-7.7) k/uL Monocytes # 1.1 H (0-1.0) k/uL PT (9.0-12.0) sec INR (<1.2) APTT 149.5 H* (22.0-30.0) sec ABG pH (7.35-7.45) ABG pCO2 (35-45) mmHg ABG pO2 (83-108) mmHg ABG HCO3 (21-25) mmol/L ABG Total CO2 (19-24) mmol/L ABG O2 Saturation (94-97) % Chloride (98-107) mmol/L Carbon Dioxide (22-30) mmol/L Creatinine (0.66-1.25) mg/dL Glucose (74-99) mg/dL POC Glucose (mg/dL) (75-99) mg/dL Calcium (8.4-10.2) mg/dL Phosphorus (2.5-4.5) mg/dL Magnesium (1.6-2.3) mg/dL Urine Protein (Negative) Urine Glucose (UA) (Negative) Urine Ketones (Negative) Urine Blood (Negative) Urine RBC (0-5) /hpf Urine WBC (0-5) /hpf Urine Bacteria (None) /hpf Urine Mucus (None) /hpf Assessment and Plan Assessment: Acute cardiopulmonary arrest likely due to pulmonary embolism. Status post CPR and spontaneous return of circulation Acute hypercapnic respiratory failure. Currently on mechanical ventilator Massive pulmonary embolism with right ventricular strain. Patient was given TPA during CPR Elevated troponin level secondary to right ventricular strain Acute lower extremity DVT Family history of pulmonary embolism in his brother Mild hyperkalemia 5.3 Recent history of pulmonary embolism about a year ago. Stopped taking Coumadin since November 2017 Previous history of smoking Bilateral lower extremity chronic lymphedema Morbid obesity with BMI 43.7 Seborrheic dermatitis history Anxiety Plan: Patient will be continued on IV heparin and monitor closely in the MICU. Patient was given TPA. Cardiology and pulmonary is following. Continue with mechanical ventilation. Monitor H&H. Prognosis is guarded. Further recommendations based on the clinical course. Time with Patient: Greater than 30
[2018-09-10] MEDS: NOREPINEPHRINE 16 MG in SODIUM CHLORIDE 0.9% 250 ML IV SCH ×2 (00:53→20:16)
[2018-09-10] MEDS: PROPOFOL 1,000 MG in EMPTY BAG 1 BAG IV SCH ×4 (02:35→23:33)
[2018-09-10] MEDS: IPRATROPIUM-ALBUTEROL 3 ML NEB INHALATION SCH ×6 (03:24→23:09)
[2018-09-10] MEDS: DEXTROSE 5% IN WATER 1,000 ML with SODIUM BICARB (1 MEQ/ML) 100 ML IV SCH (03:33)
[2018-09-10 04:27] LABS: Basophils % (A) 0 %; Eosinophils % (A) 0 %; HCT 38.8 % (39.0-53.0); HGB 12.7 gm/dL (13.0-17.5); Lymphocytes # (A) 2.6 k/uL (1.0-4.8); Lymphocytes % (A) 17 %; MCH 30.9 pg (25.0-35.0); MCHC 32.7 g/dL (31.0-37.0); MCV 94.4 fL (80.0-100.0); Mean Platelet Volume 7.4; Monocytes # (A) 1.1 k/uL (0-1.0); Monocytes % (A) 8 %; Neutrophils # (A) 10.9 k/uL (1.3-7.7); Neutrophils % (A) 73 %; Platelet Count 288 k/uL (150-450); RBC 4.11 m/uL (4.30-5.90); RDW 13.4 % (11.5-15.5)
[2018-09-10 04:51] LABS: Albumin 2.6 g/dL (3.5-5.0); Calcium 7.3 mg/dL (8.4-10.2); Magnesium 1.9 mg/dL (1.6-2.3); Phosphorus 3.9 mg/dL (2.5-4.5); Potassium 3.6 mmol/L (3.5-5.1); Total Bilirubin 0.4 mg/dL (0.2-1.3); Total Protein 5.1 g/dL (6.3-8.2)
[2018-09-10 05:17] LABS: ABG Base Excess 1.2 mmol/L; ABG HCO3 25 mmol/L (21-25); ABG Oxygen Saturation 98.8 % (94-97); ABG PCO2 36 mmHg (35-45); ABG PH 7.45 (7.35-7.45); ABG PO2 222 mmHg (83-108); ABG TCO2 26 mmol/L (19-24)
[2018-09-10 06:11] LABS: Glucose,Whole Blood 135 mg/dL (75-99)
[2018-09-10] MEDS: INSULIN ASPART 100 UNIT/ML 1 ML 10 ML VIAL SQ SCH ×3 (06:11→18:48)
[2018-09-10 06:15] LABS: INR 1.4 (<1.2); Partial Thromboplastin Time 87.1 sec (22.0-30.0); Prothrombin Time 13.3 sec (9.0-12.0)
--- NOTE | 2018-09-10 06:43 | P.PN ---
Subjective Progress Note Date: 09/10/18 Principal diagnosis: Pulmonary embolization This is a pleasant 52-year-old gentleman with a past medical history significant for a visiting as well as history of DVT and PE was admitted to the hospital with shortness of breath and was diagnosed with PE. The patient coded twice yesterday. He received CPR twice as well. Currently he is in normal sinus mechanism. On follow-up with the patient today, he remains in normal sinus mechanism. He is intubated and he is on ventilator. I did start the patient yesterday on amiodarone IV because during the code he went into SVT did not respond to shock. It responded to adenosine 6 mg. Hemodynamically he continues to be unstable and continues to be on vasopressors was Levophed. He continues to be on heparin IV. The hemoglobin remained stable. We don't have the echocardiogram results yet. Objective - Vital Signs Vital signs: Vital Signs Temp 98.8 F 09/10/18 04:00 Pulse 90 09/10/18 06:00 Resp 32 H 09/10/18 06:00 BP 136/65 09/10/18 06:00 Pulse Ox 100 09/10/18 06:00 Intake & Output 09/09/18 09/09/18 09/10/18 06:59 18:59 06:59 Intake Total 0841.154 0082.660 1995.418 Output Total 2026 089 2713 Balance 41.826 2754.660 995.418 Weight 149.9 kg 152.3 kg Intake: IV 2640 1163 0.9 40 230 Dextrose 5% in Water 1, 600 900 000 ml @ 75 mls/hr IV . [id number] [facility] with Sodium Bicarb (1 Meq/ml) 100 ml Rx#:[id number] Pressure bag 33 Sodium Chloride 0.9% 1, 2000 000 ml @ 999 mls/hr IV . Q1H1M [facility] Rx#:[id number] Intake, IV Titration 691.826 354.660 832.418 Amount Cisatracurium 200 mg In 111.776 Sodium Chloride 0.9% 180 ml @ 0.5 MCG/KG/MIN 4.49 mls/hr IV .Q24H [facility] Rx#: [id number] Heparin Sod,Pork in 0.45% 691.826 259.331 500 NaCl 25,000 unit In 0.45 % NaCl 1 500ml.bag @ 14.9 UNITS/KG/HR 45.95 mls/hr IV .[id number] [facility] Rx#: [id number] Norepinephrine 16 mg In 27.725 Sodium Chloride 0.9% 250 ml @ Titrate IV .Q0M [facility] Rx#:[id number] Propofol 1,000 mg In 95.329 192.917 Empty Bag 1 bag @ Titrate IV .Q0M [facility] Rx#: [id number] Oral 350 240 Output: Urine 4389 383 0050 Other: Voiding Method Urinal Indwelling Catheter Indwelling Catheter # Voids 2 1 ABP, PAP, CO, CI - Last Documented Arterial Blood Pressure 116/53 - Constitutional General appearance: Present: mild distress - Respiratory Respiratory: bilateral: diminished - Cardiovascular Rhythm: regular Heart sounds: normal: S1, S2 - Labs CBC & Chem 7: 09/10/18 04:00 09/10/18 04:00 Labs: Abnormal Lab Results - Last 24 Hours (Table) 09/09/18 09/09/18 09/09/18 Range/Units 08:45 09:41 10:24 WBC (3.8-10.6) k/uL RBC (4.30-5.90) m/uL Hgb (13.0-17.5) gm/dL Hct (39.0-53.0) % Neutrophils # (1.3-7.7) k/uL Monocytes # (0-1.0) k/uL PT (9.0-12.0) sec INR (<1.2) APTT (22.0-30.0) sec ABG pH <7.00 L* (7.35-7.45) ABG pCO2 80 H* (35-45) mmHg ABG pO2 118 H (83-108) mmHg ABG HCO3 18 L (21-25) mmol/L ABG Total CO2 (19-24) mmol/L ABG O2 Saturation (94-97) % Chloride (98-107) mmol/L Carbon Dioxide (22-30) mmol/L BUN (9-20) mg/dL Creatinine (0.66-1.25) mg/dL Glucose (74-99) mg/dL POC Glucose (mg/dL) 137 H 218 H (75-99) mg/dL Calcium (8.4-10.2) mg/dL Phosphorus (2.5-4.5) mg/dL Magnesium (1.6-2.3) mg/dL AST (17-59) U/L ALT (21-72) U/L Total Protein (6.3-8.2) g/dL Albumin (3.5-5.0) g/dL Urine Protein (Negative) Urine Glucose (UA) (Negative) Urine Ketones (Negative) Urine Blood (Negative) Urine RBC (0-5) /hpf Urine WBC (0-5) /hpf Urine Bacteria (None) /hpf Urine Mucus (None) /hpf 09/09/18 09/09/18 09/09/18 Range/Units 10:25 10:30 10:30 WBC (3.8-10.6) k/uL RBC (4.30-5.90) m/uL Hgb (13.0-17.5) gm/dL Hct (39.0-53.0) % Neutrophils # (1.3-7.7) k/uL Monocytes # (0-1.0) k/uL PT 17.2 H (9.0-12.0) sec INR 1.9 H (<1.2) APTT >200.0 H* (22.0-30.0) sec ABG pH (7.35-7.45) ABG pCO2 (35-45) mmHg ABG pO2 (83-108) mmHg ABG HCO3 (21-25) mmol/L ABG Total CO2 (19-24) mmol/L ABG O2 Saturation (94-97) % Chloride (98-107) mmol/L Carbon Dioxide 16 L (22-30) mmol/L BUN (9-20) mg/dL Creatinine 1.74 H (0.66-1.25) mg/dL Glucose 278 H (74-99) mg/dL POC Glucose (mg/dL) 266 H (75-99) mg/dL Calcium 7.6 L (8.4-10.2) mg/dL Phosphorus 12.9 H* (2.5-4.5) mg/dL Magnesium 2.7 H (1.6-2.3) mg/dL AST (17-59) U/L ALT (21-72) U/L Total Protein (6.3-8.2) g/dL Albumin (3.5-5.0) g/dL Urine Protein (Negative) Urine Glucose (UA) (Negative) Urine Ketones (Negative) Urine Blood (Negative) Urine RBC (0-5) /hpf Urine WBC (0-5) /hpf Urine Bacteria (None) /hpf Urine Mucus (None) /hpf 09/09/18 09/09/18 09/09/18 Range/Units 11:42 15:00 15:29 WBC (3.8-10.6) k/uL RBC (4.30-5.90) m/uL Hgb (13.0-17.5) gm/dL Hct (39.0-53.0) % Neutrophils # (1.3-7.7) k/uL Monocytes # (0-1.0) k/uL PT (9.0-12.0) sec INR (<1.2) APTT (22.0-30.0) sec ABG pH 7.19 L* 7.27 L (7.35-7.45) ABG pCO2 62 H 47 H (35-45) mmHg ABG pO2 220 H (83-108) mmHg ABG HCO3 (21-25) mmol/L ABG Total CO2 25 H (19-24) mmol/L ABG O2 Saturation 98.6 H (94-97) % Chloride (98-107) mmol/L Carbon Dioxide (22-30) mmol/L BUN (9-20) mg/dL Creatinine (0.66-1.25) mg/dL Glucose (74-99) mg/dL POC Glucose (mg/dL) (75-99) mg/dL Calcium (8.4-10.2) mg/dL Phosphorus (2.5-4.5) mg/dL Magnesium (1.6-2.3) mg/dL AST (17-59) U/L ALT (21-72) U/L Total Protein (6.3-8.2) g/dL Albumin (3.5-5.0) g/dL Urine Protein 2+ H (Negative) Urine Glucose (UA) 3+ H (Negative) Urine Ketones 1+ H (Negative) Urine Blood Moderate H (Negative) Urine RBC 6 H (0-5) /hpf Urine WBC 14 H (0-5) /hpf Urine Bacteria Rare H (None) /hpf Urine Mucus Rare H (None) /hpf 09/09/18 09/09/18 09/09/18 Range/Units 16:15 18:00 21:50 WBC 26.4 H 20.3 H (3.8-10.6) k/uL RBC 4.24 L (4.30-5.90) m/uL Hgb (13.0-17.5) gm/dL Hct (39.0-53.0) % Neutrophils # 23.8 H (1.3-7.7) k/uL Monocytes # 1.1 H (0-1.0) k/uL PT (9.0-12.0) sec INR (<1.2) APTT 149.5 H* (22.0-30.0) sec ABG pH (7.35-7.45) ABG pCO2 (35-45) mmHg ABG pO2 (83-108) mmHg ABG HCO3 (21-25) mmol/L ABG Total CO2 (19-24) mmol/L ABG O2 Saturation (94-97) % Chloride (98-107) mmol/L Carbon Dioxide (22-30) mmol/L BUN (9-20) mg/dL Creatinine (0.66-1.25) mg/dL Glucose (74-99) mg/dL POC Glucose (mg/dL) (75-99) mg/dL Calcium (8.4-10.2) mg/dL Phosphorus (2.5-4.5) mg/dL Magnesium (1.6-2.3) mg/dL AST (17-59) U/L ALT (21-72) U/L Total Protein (6.3-8.2) g/dL Albumin (3.5-5.0) g/dL Urine Protein (Negative) Urine Glucose (UA) (Negative) Urine Ketones (Negative) Urine Blood (Negative) Urine RBC (0-5) /hpf Urine WBC (0-5) /hpf Urine Bacteria (None) /hpf Urine Mucus (None) /hpf 09/09/18 09/09/18 09/10/18 Range/Units 22:40 23:44 04:00 WBC 15.0 H (3.8-10.6) k/uL RBC 4.11 L (4.30-5.90) m/uL Hgb 12.7 L (13.0-17.5) gm/dL Hct 38.8 L (39.0-53.0) % Neutrophils # 10.9 H (1.3-7.7) k/uL Monocytes # 1.1 H (0-1.0) k/uL PT 15.5 H (9.0-12.0) sec INR 1.7 H (<1.2) APTT 35.3 H (22.0-30.0) sec ABG pH (7.35-7.45) ABG pCO2 (35-45) mmHg ABG pO2 (83-108) mmHg ABG HCO3 (21-25) mmol/L ABG Total CO2 (19-24) mmol/L ABG O2 Saturation (94-97) % Chloride (98-107) mmol/L Carbon Dioxide (22-30) mmol/L BUN (9-20) mg/dL Creatinine (0.66-1.25) mg/dL Glucose (74-99) mg/dL POC Glucose (mg/dL) 166 H (75-99) mg/dL Calcium (8.4-10.2) mg/dL Phosphorus (2.5-4.5) mg/dL Magnesium (1.6-2.3) mg/dL AST (17-59) U/L ALT (21-72) U/L Total Protein (6.3-8.2) g/dL Albumin (3.5-5.0) g/dL Urine Protein (Negative) Urine Glucose (UA) (Negative) Urine Ketones (Negative) Urine Blood (Negative) Urine RBC (0-5) /hpf Urine WBC (0-5) /hpf Urine Bacteria (None) /hpf Urine Mucus (None) /hpf 09/10/18 09/10/18 09/10/18 Range/Units 04:00 05:09 05:30 WBC (3.8-10.6) k/uL RBC (4.30-5.90) m/uL Hgb (13.0-17.5) gm/dL Hct (39.0-53.0) % Neutrophils # (1.3-7.7) k/uL Monocytes # (0-1.0) k/uL PT 13.3 H (9.0-12.0) sec INR 1.4 H (<1.2) APTT 87.1 H (22.0-30.0) sec ABG pH (7.35-7.45) ABG pCO2 (35-45) mmHg ABG pO2 222 H (83-108) mmHg ABG HCO3 (21-25) mmol/L ABG Total CO2 26 H (19-24) mmol/L ABG O2 Saturation 98.8 H (94-97) % Chloride 108 H (98-107) mmol/L Carbon Dioxide (22-30) mmol/L BUN 21 H (9-20) mg/dL Creatinine 1.76 H (0.66-1.25) mg/dL Glucose 164 H (74-99) mg/dL POC Glucose (mg/dL) (75-99) mg/dL Calcium 7.3 L (8.4-10.2) mg/dL Phosphorus (2.5-4.5) mg/dL Magnesium (1.6-2.3) mg/dL AST 559 H (17-59) U/L ALT 506 H (21-72) U/L Total Protein 5.1 L (6.3-8.2) g/dL Albumin 2.6 L (3.5-5.0) g/dL Urine Protein (Negative) Urine Glucose (UA) (Negative) Urine Ketones (Negative) Urine Blood (Negative) Urine RBC (0-5) /hpf Urine WBC (0-5) /hpf Urine Bacteria (None) /hpf Urine Mucus (None) /hpf 09/10/18 Range/Units 06:10 WBC (3.8-10.6) k/uL RBC (4.30-5.90) m/uL Hgb (13.0-17.5) gm/dL Hct (39.0-53.0) % Neutrophils # (1.3-7.7) k/uL Monocytes # (0-1.0) k/uL PT (9.0-12.0) sec INR (<1.2) APTT (22.0-30.0) sec ABG pH (7.35-7.45) ABG pCO2 (35-45) mmHg ABG pO2 (83-108) mmHg ABG HCO3 (21-25) mmol/L ABG Total CO2 (19-24) mmol/L ABG O2 Saturation (94-97) % Chloride (98-107) mmol/L Carbon Dioxide (22-30) mmol/L BUN (9-20) mg/dL Creatinine (0.66-1.25) mg/dL Glucose (74-99) mg/dL POC Glucose (mg/dL) 135 H (75-99) mg/dL Calcium (8.4-10.2) mg/dL Phosphorus (2.5-4.5) mg/dL Magnesium (1.6-2.3) mg/dL AST (17-59) U/L ALT (21-72) U/L Total Protein (6.3-8.2) g/dL Albumin (3.5-5.0) g/dL Urine Protein (Negative) Urine Glucose (UA) (Negative) Urine Ketones (Negative) Urine Blood (Negative) Urine RBC (0-5) /hpf Urine WBC (0-5) /hpf Urine Bacteria (None) /hpf Urine Mucus (None) /hpf Microbiology - Last 24 Hours (Table) 09/09/18 23:19 Sputum Culture - Preliminary Sputum 09/09/18 15:00 Urine Culture - Preliminary Urine,Catheterized Assessment and Plan Assessment: Assessment Massive PE History of DVT PE in the past Morbid obesity Status post cardiopulmonary arrest Plan Continue amiodarone IV Continue heparin IV Continue monitor the hemoglobin Try to wean him from the Levothroid Follow-up 1 the echocardiogram Follow-up 1 the patient
[2018-09-10] MEDS: AMIODARONE 450 MG in DEXTROSE 5% IN WATER 250 ML IV SCH ×4 (07:36→16:32)
[2018-09-10] MEDS: HEPARIN SOD,PORK IN 0.45% NACL 25,000 UNIT in 0.45% NACL 1 500ML.BAG IV SCH ×2 (07:37→17:28)
[2018-09-10] MEDS: PANTOPRAZOLE 40 MG/10 ML VIAL IVP SCH (08:49)
[2018-09-10] MEDS: CHLORHEXIDINE GLUCONATE 15 ML CUP MUCOUS MEM SCH ×2 (08:49→21:28)
--- NOTE | 2018-09-10 09:14 | P.PN ---
Subjective Progress Note Date: 09/10/18 Principal diagnosis: Respiratory failure, massive bilateral pulmonary embolism Progress note dated 09/10/2018 52-year-old male who presented to the emergency department with massive bilateral pulmonary embolism, right ventricular enlargement and right heart strain. The patient was started on IV heparin and admitted to the general medical floor. The patient subsequently had a cardiac arrest and was transferred to the intensive care unit we had a prolonged cardiopulmonary arrest with prolonged cardiopulmonary resuscitation and eventual return of spontaneous circulation. The patient was given systemic TPA by the ER physician at the bedside. Lines were placed yesterday by myself my nurse practitioner. The patient remains on IV heparin. The patient's overall situation is poor. In addition to prolonged resuscitation, the patient had the massive bilateral pulmonary embolism. We attempted to see whether or not our interventional colleagues would be willing to do EKOS on this patient but his instability in the fact that he receive systemic TPA precluded that. He in addition has a previous history of DVT and pulmonary most him was treated with blood thinners for 6 months he has an acute DVT of the right lower extremity on this admission morbid obesity previous history of tobacco use and sedentary lifestyle anxiety and previous cholecystectomy and hernia repair. His overall prognosis at this point is poor. He remains on the mechanical ventilator on the volume assist control mode with a rate of 32 tidal volume 500 FiO2 40% PEEP of 5. Arterial blood gases on the same settings except 60% show a PaO2 of 222 PaCO2 of 36 and a pH of 7.45. He is on propofol at 45 mics per kilogram per minute, norepinephrine at 20 mics per minute heparin via weightbase protocol a saline IV at 75 mL an hour and amiodarone at 1 mg/m. In addition, yesterday should change, the patient apparently had an episode of supraventricular tachycardia cardioversion was attempted an adenosine was given. More recently, at 07 10 this morning, again with an episode of SVT, adenosine was given which seemed to help in the cardiology started the patient on amiodarone. Chest x- ray is consistent with fluid overload. Again prognosis is poor this point. We will attempt to talk to the family sometime today. Objective - Vital Signs Vital signs: Vital Signs Temp 98.8 F 09/10/18 04:00 Pulse 93 09/10/18 07:45 Resp 32 H 09/10/18 07:00 BP 136/65 09/10/18 06:00 Pulse Ox 100 09/10/18 07:00 Intake & Output 09/09/18 09/10/18 09/10/18 18:59 06:59 18:59 Intake Total 3234.660 1995.418 98 Output Total 480 1000 75 Balance 2754.660 995.418 23 Weight 152.3 kg Intake: IV 2640 1163 98 0.9 40 230 20 Dextrose 5% in Water 1, 600 900 75 000 ml @ 75 mls/hr IV . [id number] [facility] with Sodium Bicarb (1 Meq/ml) 100 ml Rx#:[id number] Pressure bag 33 3 Sodium Chloride 0.9% 1, 2000 000 ml @ 999 mls/hr IV . Q1H1M [facility] Rx#:[id number] Intake, IV Titration 354.660 832.418 Amount Cisatracurium 200 mg In 111.776 Sodium Chloride 0.9% 180 ml @ 0.5 MCG/KG/MIN 4.49 mls/hr IV .Q24H [facility] Rx#: [id number] Heparin Sod,Pork in 0.45% 259.331 500 NaCl 25,000 unit In 0.45 % NaCl 1 500ml.bag @ 14.9 UNITS/KG/HR 45.95 mls/hr IV .[id number] [facility] Rx#: [id number] Norepinephrine 16 mg In 27.725 Sodium Chloride 0.9% 250 ml @ Titrate IV .Q0M [facility] Rx#:[id number] Propofol 1,000 mg In 95.329 192.917 Empty Bag 1 bag @ Titrate IV .Q0M [facility] Rx#: [id number] Oral 240 Output: Urine 480 1000 75 Other: Voiding Method Indwelling Catheter Indwelling Catheter # Voids 1 ABP, PAP, CO, CI - Last Documented Arterial Blood Pressure 120/54 - Exam No acute distress, sedated, orally placed endotracheal tube and NG tube. There is blood coming from the mouth and dried blood in the NG tube. HEENT examination is grossly unremarkable. Mucous membranes are moist. Neck supple. Full range of motion. No adenopathy thyromegaly or neck vein distention. Cardiovascular examination reveals regular rhythm rate. S1-S2 normal. No S3 or S4. No discernible murmur noted. Heart sounds are distant. Heart rate is 93. Lungs reveal coarse bilateral breath sounds. Some crackles noted bilaterally. Diffuse rhonchi are appreciated. No wheezes. Breath sounds are diminished throughout. Breath sounds are equal bilaterally. Abdomen is obese. Bowel sounds are noted. No masses appreciated. Extremities. There is some chronic venous stasis changes. There is some pitting. Some mild livedo reticularis. Skin is reveal some chronic venous stasis changes. Neurologic examination could not be adequately assessed as the patient is currently sedated. - Labs CBC & Chem 7: 09/10/18 04:00 09/10/18 04:00 Labs: Abnormal Lab Results - Last 24 Hours (Table) 09/09/18 09/09/18 09/09/18 Range/Units 09:41 10:24 10:25 WBC (3.8-10.6) k/uL RBC (4.30-5.90) m/uL Hgb (13.0-17.5) gm/dL Hct (39.0-53.0) % Neutrophils # (1.3-7.7) k/uL Monocytes # (0-1.0) k/uL PT (9.0-12.0) sec INR (<1.2) APTT (22.0-30.0) sec ABG pH <7.00 L* (7.35-7.45) ABG pCO2 80 H* (35-45) mmHg ABG pO2 118 H (83-108) mmHg ABG HCO3 18 L (21-25) mmol/L ABG Total CO2 (19-24) mmol/L ABG O2 Saturation (94-97) % Chloride (98-107) mmol/L Carbon Dioxide (22-30) mmol/L BUN (9-20) mg/dL Creatinine (0.66-1.25) mg/dL Glucose (74-99) mg/dL POC Glucose (mg/dL) 218 H 266 H (75-99) mg/dL Calcium (8.4-10.2) mg/dL Phosphorus (2.5-4.5) mg/dL Magnesium (1.6-2.3) mg/dL AST (17-59) U/L ALT (21-72) U/L Total Protein (6.3-8.2) g/dL Albumin (3.5-5.0) g/dL Urine Protein (Negative) Urine Glucose (UA) (Negative) Urine Ketones (Negative) Urine Blood (Negative) Urine RBC (0-5) /hpf Urine WBC (0-5) /hpf Urine Bacteria (None) /hpf Urine Mucus (None) /hpf 09/09/18 09/09/18 09/09/18 Range/Units 10:30 10:30 11:42 WBC (3.8-10.6) k/uL RBC (4.30-5.90) m/uL Hgb (13.0-17.5) gm/dL Hct (39.0-53.0) % Neutrophils # (1.3-7.7) k/uL Monocytes # (0-1.0) k/uL PT 17.2 H (9.0-12.0) sec INR 1.9 H (<1.2) APTT >200.0 H* (22.0-30.0) sec ABG pH 7.19 L* (7.35-7.45) ABG pCO2 62 H (35-45) mmHg ABG pO2 (83-108) mmHg ABG HCO3 (21-25) mmol/L ABG Total CO2 25 H (19-24) mmol/L ABG O2 Saturation (94-97) % Chloride (98-107) mmol/L Carbon Dioxide 16 L (22-30) mmol/L BUN (9-20) mg/dL Creatinine 1.74 H (0.66-1.25) mg/dL Glucose 278 H (74-99) mg/dL POC Glucose (mg/dL) (75-99) mg/dL Calcium 7.6 L (8.4-10.2) mg/dL Phosphorus 12.9 H* (2.5-4.5) mg/dL Magnesium 2.7 H (1.6-2.3) mg/dL AST (17-59) U/L ALT (21-72) U/L Total Protein (6.3-8.2) g/dL Albumin (3.5-5.0) g/dL Urine Protein (Negative) Urine Glucose (UA) (Negative) Urine Ketones (Negative) Urine Blood (Negative) Urine RBC (0-5) /hpf Urine WBC (0-5) /hpf Urine Bacteria (None) /hpf Urine Mucus (None) /hpf 09/09/18 09/09/18 09/09/18 Range/Units 15:00 15:29 16:15 WBC 26.4 H (3.8-10.6) k/uL RBC (4.30-5.90) m/uL Hgb (13.0-17.5) gm/dL Hct (39.0-53.0) % Neutrophils # 23.8 H (1.3-7.7) k/uL Monocytes # 1.1 H (0-1.0) k/uL PT (9.0-12.0) sec INR (<1.2) APTT (22.0-30.0) sec ABG pH 7.27 L (7.35-7.45) ABG pCO2 47 H (35-45) mmHg ABG pO2 220 H (83-108) mmHg ABG HCO3 (21-25) mmol/L ABG Total CO2 (19-24) mmol/L ABG O2 Saturation 98.6 H (94-97) % Chloride (98-107) mmol/L Carbon Dioxide (22-30) mmol/L BUN (9-20) mg/dL Creatinine (0.66-1.25) mg/dL Glucose (74-99) mg/dL POC Glucose (mg/dL) (75-99) mg/dL Calcium (8.4-10.2) mg/dL Phosphorus (2.5-4.5) mg/dL Magnesium (1.6-2.3) mg/dL AST (17-59) U/L ALT (21-72) U/L Total Protein (6.3-8.2) g/dL Albumin (3.5-5.0) g/dL Urine Protein 2+ H (Negative) Urine Glucose (UA) 3+ H (Negative) Urine Ketones 1+ H (Negative) Urine Blood Moderate H (Negative) Urine RBC 6 H (0-5) /hpf Urine WBC 14 H (0-5) /hpf Urine Bacteria Rare H (None) /hpf Urine Mucus Rare H (None) /hpf 09/09/18 09/09/18 09/09/18 Range/Units 18:00 21:50 22:40 WBC 20.3 H (3.8-10.6) k/uL RBC 4.24 L (4.30-5.90) m/uL Hgb (13.0-17.5) gm/dL Hct (39.0-53.0) % Neutrophils # (1.3-7.7) k/uL Monocytes # (0-1.0) k/uL PT 15.5 H (9.0-12.0) sec INR 1.7 H (<1.2) APTT 149.5 H* 35.3 H (22.0-30.0) sec ABG pH (7.35-7.45) ABG pCO2 (35-45) mmHg ABG pO2 (83-108) mmHg ABG HCO3 (21-25) mmol/L ABG Total CO2 (19-24) mmol/L ABG O2 Saturation (94-97) % Chloride (98-107) mmol/L Carbon Dioxide (22-30) mmol/L BUN (9-20) mg/dL Creatinine (0.66-1.25) mg/dL Glucose (74-99) mg/dL POC Glucose (mg/dL) (75-99) mg/dL Calcium (8.4-10.2) mg/dL Phosphorus (2.5-4.5) mg/dL Magnesium (1.6-2.3) mg/dL AST (17-59) U/L ALT (21-72) U/L Total Protein (6.3-8.2) g/dL Albumin (3.5-5.0) g/dL Urine Protein (Negative) Urine Glucose (UA) (Negative) Urine Ketones (Negative) Urine Blood (Negative) Urine RBC (0-5) /hpf Urine WBC (0-5) /hpf Urine Bacteria (None) /hpf Urine Mucus (None) /hpf 09/09/18 09/10/18 09/10/18 Range/Units 23:44 04:00 04:00 WBC 15.0 H (3.8-10.6) k/uL RBC 4.11 L (4.30-5.90) m/uL Hgb 12.7 L (13.0-17.5) gm/dL Hct 38.8 L (39.0-53.0) % Neutrophils # 10.9 H (1.3-7.7) k/uL Monocytes # 1.1 H (0-1.0) k/uL PT (9.0-12.0) sec INR (<1.2) APTT (22.0-30.0) sec ABG pH (7.35-7.45) ABG pCO2 (35-45) mmHg ABG pO2 (83-108) mmHg ABG HCO3 (21-25) mmol/L ABG Total CO2 (19-24) mmol/L ABG O2 Saturation (94-97) % Chloride 108 H (98-107) mmol/L Carbon Dioxide (22-30) mmol/L BUN 21 H (9-20) mg/dL Creatinine 1.76 H (0.66-1.25) mg/dL Glucose 164 H (74-99) mg/dL POC Glucose (mg/dL) 166 H (75-99) mg/dL Calcium 7.3 L (8.4-10.2) mg/dL Phosphorus (2.5-4.5) mg/dL Magnesium (1.6-2.3) mg/dL AST 559 H (17-59) U/L ALT 506 H (21-72) U/L Total Protein 5.1 L (6.3-8.2) g/dL Albumin 2.6 L (3.5-5.0) g/dL Urine Protein (Negative) Urine Glucose (UA) (Negative) Urine Ketones (Negative) Urine Blood (Negative) Urine RBC (0-5) /hpf Urine WBC (0-5) /hpf Urine Bacteria (None) /hpf Urine Mucus (None) /hpf 09/10/18 09/10/18 09/10/18 Range/Units 05:09 05:30 06:10 WBC (3.8-10.6) k/uL RBC (4.30-5.90) m/uL Hgb (13.0-17.5) gm/dL Hct (39.0-53.0) % Neutrophils # (1.3-7.7) k/uL Monocytes # (0-1.0) k/uL PT 13.3 H (9.0-12.0) sec INR 1.4 H (<1.2) APTT 87.1 H (22.0-30.0) sec ABG pH (7.35-7.45) ABG pCO2 (35-45) mmHg ABG pO2 222 H (83-108) mmHg ABG HCO3 (21-25) mmol/L ABG Total CO2 26 H (19-24) mmol/L ABG O2 Saturation 98.8 H (94-97) % Chloride (98-107) mmol/L Carbon Dioxide (22-30) mmol/L BUN (9-20) mg/dL Creatinine (0.66-1.25) mg/dL Glucose (74-99) mg/dL POC Glucose (mg/dL) 135 H (75-99) mg/dL Calcium (8.4-10.2) mg/dL Phosphorus (2.5-4.5) mg/dL Magnesium (1.6-2.3) mg/dL AST (17-59) U/L ALT (21-72) U/L Total Protein (6.3-8.2) g/dL Albumin (3.5-5.0) g/dL Urine Protein (Negative) Urine Glucose (UA) (Negative) Urine Ketones (Negative) Urine Blood (Negative) Urine RBC (0-5) /hpf Urine WBC (0-5) /hpf Urine Bacteria (None) /hpf Urine Mucus (None) /hpf Microbiology - Last 24 Hours (Table) 09/09/18 23:19 Gram Stain - Preliminary Sputum Sputum Culture - Preliminary 09/09/18 15:00 Urine Culture - Preliminary Urine,Catheterized Assessment and Plan Assessment: Assessment Massive pulmonary embolism with evidence of right heart strain and acute dilatation of the right ventricle subsequent cardiopulmonary arrest prolonged cardiopulmonary resuscitation and eventual return of spontaneous circulation, patient intubated on September 09 during the resuscitation. Prolonged cardiopulmonary arrest with prolonged cardiopulmonary resuscitation but with eventual return of spontaneous ventilation, rule out anoxic brain injury Previous history of DVT and pulmonary embolism, treated with 6 months of warfarin Acute DVT, right lower extremity Systemic administration of TPA on this admission Morbid obesity. Previous history of tobacco use History of anxiety Status post cholecystectomy and hernia repair Plan: Plan dated 09/09/2018 After a prolonged resuscitation and difficult intubation, the patient was eventually transferred back up to the ICU. The patient will be placed on the mechanical ventilator with settings of tidal volume 500, 100%, PEEP of 5, and rate of 24 breaths per minute. We'll place him on the volume assist control mode. We'll see if we can't place lines in the patient. The right groin line is probably a dirty line. He did receive systemic TPA. White count is 12.6, hemoglobin 15.4, hematocrit 48.3 and platelet count 279,000. PTT was 46.6. Sodium 139 potassium 4.6 chloride 109 CO2 22 BUN and creatinine were 12 and 0.99. Troponin was 0.258. Chest x-ray, labs, medications, computed tomography scan, and Doppler of lower extremity are reviewed. Medications are reviewed. Prognosis is guarded. Critical care time 40 minutes Plan dated 09/10/2018 Currently, the patient is on the assist control mode. Blood gases have been evaluated. FiO2 dropped from 60 down to 40%. The patient remains on propofol, norepinephrine, IV heparin, and IV amiodarone. His overall prognosis remains very poor. White count is 15 hemoglobin 12.7 hematocrit 38.8 and platelet count 288,000. PT 13.3 INR 1.4 and PTT 87.1. Sodium and potassium are normal. Chloride 108 CO2 25 BUN and creatinine were 21 and 1.76. AST was 559 8 hours T was 506 and albumin was 2.6. Microbiologic studies remain negative. Chest x- ray labs and medications are all reviewed. Additional recommendations and suggestions are forthcoming. Medications will be reviewed. Critical care time 38 minutes Time with Patient: Greater than 30
--- NOTE | 2018-09-10 09:26 | XR ---
EXAMINATION TYPE: XR chest 1V portable DATE OF EXAM: 09/10/2018 COMPARISON: 09/09/2018 HISTORY: Tube placement TECHNIQUE: Single frontal view of the chest is obtained. FINDINGS: ET tube 4 cm above terri. NG tube seen coursing in the left upper abdomen. Left-sided guillermo tral line noted. Cardiomegaly, bilateral consolidation and pleural effusion noted. No sizable pneumothorax. IMPRESSION: 1. Bilateral consolidation and pleural effusion. Correlate for pneumonia versus CHF.
--- NOTE | 2018-09-10 10:48 | ECHOF ---
Referral Reason:assess lvf MEASUREMENTS -------- HEIGHT: 182.9 cm WEIGHT: 149.7 kg BP: RVIDd: 4.4 cm (< 3.3) IVSd: 1.3 cm (0.6 - 1.1) LVIDd: 3.0 cm (3.9 - 5.3) LVPWd: 1.1 cm (0.6 - 1.1) IVSs: 1.7 cm LVIDs: 1.6 cm LVPWs: 1.6 cm Ao Diam: 3.6 cm (2.0 - 3.7) AV Cusp: 2.6 cm (1.5 - 2.6) LA Diam: 3.6 cm (2.7 - 3.8) MV EXCURSION: 20.130 mm (> 18.000) MV EF SLOPE: 98 mm/s (70 - 150) EPSS: 0.5 cm MV E Joel: 0.47 m/s MV DecT: 135 ms MV A Joel: 0.68 m/s MV E/A Ratio: 0.70 RAP: 5.00 mmHg RVSP: 26.33 mmHg FINDINGS -------- Resting tachycardia (HR>100bpm). This was a technically adequate study. The left ventricular size is normal. Left ventricular wall thickness is normal. Overall left vent ricular systolic function is normal with, an EF between 60 - 65 %. There is paradoxical/dysynergic septal motion consistent with right ventricular volume overload and/or elevated right ventricular end -diastolic pressure. The right ventricle is severely enlarged. The left atrium is normal in size. The right atrium is normal in size. Aortic valve is trileaflet and is mildly thickened. There is trace mitral regurgitation. Mild tricuspid regurgitation present. The right ventricular systolic pressure, as measured by Doppl er, is 26.33mmHg. Pulmonic valve appears structurally normal. The aortic root size is normal. There is a trivial pericardial effusion present. CONCLUSIONS -------- 1. Resting tachycardia (HR>100bpm). 2. This was a technically adequate study. 3. The left ventricular size is normal. 4. Left ventricular wall thickness is normal. 5. Overall left ventricular systolic function is normal with, an EF between 60 - 65 %. 6. There is paradoxical/dysynergic septal motion consistent with right ventricular volume overload an d/or elevated right ventricular end-diastolic pressure. 7. The right ventricle is severely enlarged. 8. The left atrium is normal in size. 9. The right atrium is normal in size. 10. Aortic valve is trileaflet and is mildly thickened. 11. There is trace mitral regurgitation. 12. Mild tricuspid regurgitation present. 13. The right ventricular systolic pressure, as measured by Doppler, is 26.33mmHg. 14. Pulmonic valve appears structurally normal. 15. The aortic root size is normal. 16. There is a trivial pericardial effusion present. FRONT DESK HOST: Evangelina Sharma RDCS
[2018-09-10 11:40] LABS: HCT 35.3 % (39.0-53.0); HGB 11.8 gm/dL (13.0-17.5); MCH 31.5 pg (25.0-35.0); MCHC 33.5 g/dL (31.0-37.0); MCV 94.1 fL (80.0-100.0); Mean Platelet Volume 7.6; Platelet Count 255 k/uL (150-450); RBC 3.76 m/uL (4.30-5.90); RDW 13.4 % (11.5-15.5); WBC 15.4 k/uL (3.8-10.6)
[2018-09-10 11:49] LABS: Glucose,Whole Blood 106 mg/dL (75-99)
[2018-09-10] MEDS: MULTIVITAMINS, THERA 1 EACH TAB PO SCH (12:38)
[2018-09-10] MEDS ORDERED: Potassium Replacement Protocol 1 EACH MISC MISCELLANE PRN (16:16)
[2018-09-10] MEDS: POTASSIUM CHLORIDE 10 MEQ in WATER FOR INJECTION 1 100ML.BAG IVPB SCH ×2 (16:31→17:51)
[2018-09-10] MEDS: SODIUM CHLORIDE 0.9% 1,000 ML IV SCH (16:35)
[2018-09-10 18:12] LABS: HCT 32.3 % (39.0-53.0); HGB 10.8 gm/dL (13.0-17.5); MCH 31.5 pg (25.0-35.0); MCHC 33.6 g/dL (31.0-37.0); MCV 93.8 fL (80.0-100.0); Mean Platelet Volume 7.6; Platelet Count 225 k/uL (150-450); RBC 3.44 m/uL (4.30-5.90); RDW 13.6 % (11.5-15.5); WBC 14.6 k/uL (3.8-10.6)
[2018-09-10 18:17] LABS: Glucose,Whole Blood 118 mg/dL (75-99)
[2018-09-10] MEDS: HYDROmorphone 1 MG/ML 1 ML SYRINGE IVP PRN ×2 (19:15→23:16)
[2018-09-10 21:53] LABS: Basophils # (A) 0.1 k/uL (0-0.2); Basophils % (A) 0 %; Eosinophils # (A) 0.2 k/uL (0-0.7); Eosinophils % (A) 1 %; HCT 31.2 % (39.0-53.0); HGB 10.7 gm/dL (13.0-17.5); Lymphocytes # (A) 2.4 k/uL (1.0-4.8); Lymphocytes % (A) 18 %; MCHC 34.3 g/dL (31.0-37.0); MCV 93.4 fL (80.0-100.0); Mean Platelet Volume 7.6; Monocytes # (A) 0.8 k/uL (0-1.0); Monocytes % (A) 6 %; Neutrophils # (A) 9.9 k/uL (1.3-7.7); Neutrophils % (A) 73 %; Platelet Count 232 k/uL (150-450); RBC 3.34 m/uL (4.30-5.90); RDW 13.6 % (11.5-15.5); WBC 13.6 k/uL (3.8-10.6)
[2018-09-10 22:04] LABS: Magnesium 1.7 mg/dL (1.6-2.3); Phosphorus 2.9 mg/dL (2.5-4.5); Potassium 3.7 mmol/L (3.5-5.1)
[2018-09-10] MEDS ORDERED: Magnesium Replacement Protocol 1 EACH MISC MISCELLANE PRN (22:11)
--- NOTE | 2018-09-10 22:55 | P.PN ---
Subjective Progress Note Date: 09/10/18 Principal diagnosis: Massive pulmonary embolism Acute cardiopulmonary arrest status post CPR and intubation Patient is a 52-year-old male with a known history of chronic bilateral lower extremity lymphedema and history of pulmonary embolism about a year ago, currently not taking Coumadin for the past 6-8 months came to ER with complaints of acute worsening shortness of breath since yesterday. Patient says that he has been having shortness of breath for the last couple of weeks but suddenly got worse yesterday. Patient was told that his DVT and pulmonary embolus was secondary to sedentary lifestyle and sleeping in a sitting position. Patient states he took his Coumadin for about 6 months. He was so several follow-up appointment in November for repeat evaluation however he did not follow-up with that appointment. He stopped his Coumadin in November. Denies any constitutional symptoms. Patient feels much more short of breath with exertion. Chest pain. He feels as though both of his legs are much more edematous than usual suspicion is right lower extremity. Lower extremity duplex scan showed acute DVT right popliteal vein through the proximal calf veins CTA chest showed massive bilateral pulmonary embolism with right ventricular enlargement suggestive of right ventricular strain correlate clinically. A 7 mm and 4 mm right lower lobe pulmonary nodule not seen previous exam subpleural in location could be inflammatory. WBC 14.1 Troponin 0.258 Potassium 5.3 On 09/09/2018 Patient had a brief episode of cardiopulmonary arrest this morning and developed respiratory distress. Subsequently patient was intubated and was transferred to MICU. Patient had a difficult intubation. Patient was given TPA by ER physician. Patient also received multiple doses of epinephrine and sodium bicarbonate. Patient is currently on Levophed drip. Being continued on heparin drip as well. Patient is currently sedated. Initial ABG showed pH 7.0, pCO2 80, pO2 118 Patient was seen by cardiology and pulmonary. 09/10/2018 Patient is currently mechanically ventilated and sedated. Patient is being continued on heparin drip. Continues to be on Levothroid drip. Patient had SVT during cardiopulmonary arrest. Patient was started on amiodarone.. Otherwise hemoglobin dropped to 10.7 today. Continues to have bloody secretions which is being suctioned. Chest x-ray showed bilateral pleural effusion and consolidation. AST 559 and ALT 509 albumin 2.6. Cultures negative so far. Creatinine 1.76. Active Medications Active Medications Generic Name Dose Route Start Last Admin Trade Name Freq PRN Reason Stop Dose Admin Albuterol/Ipratropium 3 ml 09/09/18 09:37 Duoneb 0.5 Mg-3 Mg/3 Ml Soln INHALATION RT-Q2H PRN Shortness Of Breath Or Wheezing Albuterol/Ipratropium 3 ml 09/09/18 12:00 09/10/18 20:14 Duoneb 0.5 Mg-3 Mg/3 Ml Soln INHALATION 3 ml RT-Q4H GIOVANNY Administration Chlorhexidine Gluconate 15 ml 09/09/18 21:00 09/10/18 21:28 Peridex MUCOUS MEM 15 ml BID GIOVANNY Administration Heparin Sodium (Porcine) 0 unit 09/08/18 10:49 09/09/18 04:34 Heparin IV 4,000 unit PER PROTOCOL PRN Administration Low PTT Protocol Hydromorphone HCl 1 mg 09/10/18 17:33 09/10/18 19:15 Dilaudid IVP 1 mg Q1HR PRN Administration Mild to Moderate Pain Hydromorphone HCl 2 mg 09/10/18 17:33 Dilaudid IVP Q1HR PRN Moderate to Severe Pain Heparin Sodium/Sodium Chloride 500 mls @ 45.95 mls/hr 09/08/18 11:00 18:52 25,000 unit/ Sodium Chloride IV 10 units/kg/hr .[id number] GIOVNANY 30.84 mls/hr Titration Protocol 14.9 UNITS/KG/HR Propofol 1,000 mg/ IV Solution 100 mls @ 0 mls/hr 09/09/18 09:45 09/10/18 21: 32 IV 60 mcg/kg/min .Q0M GIOVANNY 54.82 mls/hr Administration Protocol Titrate Norepinephrine Bitartrate 16 250 mls @ 0 mls/hr 09/09/18 10:00 09/10/18 20:16 mg/ Sodium Chloride IV 17 mcg/min .Q0M GIOVANNY 15.93 mls/hr Administration Protocol Titrate Amiodarone HCl 450 mg/ 259 mls @ 34.53 mls/hr 09/10/18 06:30 09/10/18 16:32 Dextrose/Water IV 09/11/18 06:30 1 mg/min .[id number] GIOVANNY 34.53 mls/hr Administration Protocol 1 MG/MIN Sodium Chloride 1,000 mls @ 75 mls/hr 09/10/18 12:45 09/10/18 16:35 Saline 0.9% IV 75 mls/hr .[id number] GIOVANNY Administration Magnesium Sulfate/Dextrose 1 100 mls @ 100 mls/hr 09/10/18 22:15 gm/ IV Solution IVPB 09/11/18 00:14 Q1H GIOVANNY Insulin Aspart 0 unit 09/10/18 06:00 09/10/18 18:48 Novolog SQ Not Given Q6HR [facility] Protocol Miscellaneous Information 1 each 09/10/18 16:16 Potassium Per Protocol MISCELLANE DAILY PRN Per Protocol Protocol Miscellaneous Information 1 each 09/10/18 22:11 Magnesium Per Protocol MISCELLANE DAILY PRN Per Protocol Protocol Multivitamins 1 each 09/09/18 12:00 09/10/18 12:38 Theragran PO Not Given DAILY@1200 GIOVANNY Naloxone HCl 0.2 mg 09/08/18 15:00 Narcan IV Q2M PRN Opioid Reversal Pantoprazole Sodium 40 mg 09/10/18 09:00 09/10/18 08:49 Protonix IVP 40 mg DAILY GIOVANNY Administration Potassium Bicarbonate 20 meq 09/10/18 23:00 K-Lyte NG-TUBE 09/10/18 23:01 Q1HR [facility] Protocol Objective - Vital Signs Vital signs: Vital Signs Temp 99.1 F 09/10/18 20:00 Pulse 79 09/10/18 22:00 Resp 32 H 09/10/18 22:00 BP 136/65 09/10/18 22:00 Pulse Ox 98 09/10/18 22:00 Intake & Output 09/10/18 09/10/18 09/11/18 06:59 18:59 06:59 Intake Total 6798.134 7680.924 422.571 Output Total 1000 1335 145 Balance 995.418 577.924 277.571 Weight 152.3 kg 152.3 kg Intake: IV 1163 878 312 0.9 230 770 300 Dextrose 5% in Water 1, 900 75 000 ml @ 75 mls/hr IV . [id number] GIOVANNY with Sodium Bicarb (1 Meq/ml) 100 ml Rx#:[id number] Pressure bag 33 33 12 Intake, IV Titration 832.418 944.924 20.571 Amount Amiodarone 450 mg In 186.462 Dextrose 5% in Water 250 ml @ 1 MG/MIN 34.53 mls/ hr IV .[id number] GIOVANNY Rx#: [id number] Cisatracurium 200 mg In 111.776 Sodium Chloride 0.9% 180 ml @ 0.5 MCG/KG/MIN 4.49 mls/hr IV .Q24H GIOVANNY Rx#: [id number] Heparin Sod,Pork in 0.45% 500 356.758 NaCl 25,000 unit In 0.45 % NaCl 1 500ml.bag @ 14.9 UNITS/KG/HR 45.95 mls/hr IV .[id number] GIOVANNY Rx#: [id number] Norepinephrine 16 mg In 27.725 222.275 Sodium Chloride 0.9% 250 ml @ Titrate IV .Q0M GIOVANNY Rx#:[id number] Propofol 1,000 mg In 192.917 179.429 20.571 Empty Bag 1 bag @ Titrate IV .Q0M GIOVANNY Rx#: [id number] Tube Feeding 60 60 Other 30 30 Output: Urine 1000 785 145 Emesis 550 Other: Voiding Method Indwelling Catheter Indwelling Catheter Indwelling Catheter # Voids 1 ABP, PAP, CO, CI - Last Documented Arterial Blood Pressure 110/56 - Exam PHYSICAL EXAMINATION: Patient is lying in the bed comfortably, currently sedated and intubated HEENT: Normocephalic. Neck is supple. Pupils reactive. Nostrils clear. Oral cavity is moist. Ears reveal no drainage. Neck reveals no JVD, carotid bruits, or thyromegaly. CHEST EXAMINATION: Trachea is central. Symmetrical expansion. Bibasilar diminished air entry. Lung vicente clear to auscultation and percussion. CARDIAC: Normal S1, S2 with no gallops. No murmurs ABDOMEN: Soft. Bowel sounds normal. No organomegaly. No abdominal bruits. Extremities: Bilateral lower extremity lymphedema with 3+ edema. No clubbing or cyanosis Neurologically . Currently sedated and intubated. Skin: No rash or skin lesions except above. Psychiatric: Could not be assessed at this time. - Labs CBC & Chem 7: 09/10/18 21:40 09/10/18 21:40 Labs: Abnormal Lab Results - Last 24 Hours (Table) 09/09/18 09/09/18 09/10/18 Range/Units 22:40 23:44 04:00 WBC 15.0 H (3.8-10.6) k/uL RBC 4.11 L (4.30-5.90) m/uL Hgb 12.7 L (13.0-17.5) gm/dL Hct 38.8 L (39.0-53.0) % Neutrophils # 10.9 H (1.3-7.7) k/uL Monocytes # 1.1 H (0-1.0) k/uL PT 15.5 H (9.0-12.0) sec INR 1.7 H (<1.2) APTT 35.3 H (22.0-30.0) sec ABG pO2 (83-108) mmHg ABG Total CO2 (19-24) mmol/L ABG O2 Saturation (94-97) % Sodium (137-145) mmol/L Chloride (98-107) mmol/L BUN (9-20) mg/dL Creatinine (0.66-1.25) mg/dL Glucose (74-99) mg/dL POC Glucose (mg/dL) 166 H (75-99) mg/dL Calcium (8.4-10.2) mg/dL AST (17-59) U/L ALT (21-72) U/L Total Protein (6.3-8.2) g/dL Albumin (3.5-5.0) g/dL 09/10/18 09/10/18 09/10/18 Range/Units 04:00 05:09 05:30 WBC (3.8-10.6) k/uL RBC (4.30-5.90) m/uL Hgb (13.0-17.5) gm/dL Hct (39.0-53.0) % Neutrophils # (1.3-7.7) k/uL Monocytes # (0-1.0) k/uL PT 13.3 H (9.0-12.0) sec INR 1.4 H (<1.2) APTT 87.1 H (22.0-30.0) sec ABG pO2 222 H (83-108) mmHg ABG Total CO2 26 H (19-24) mmol/L ABG O2 Saturation 98.8 H (94-97) % Sodium (137-145) mmol/L Chloride 108 H (98-107) mmol/L BUN 21 H (9-20) mg/dL Creatinine 1.76 H (0.66-1.25) mg/dL Glucose 164 H (74-99) mg/dL POC Glucose (mg/dL) (75-99) mg/dL Calcium 7.3 L (8.4-10.2) mg/dL AST 559 H (17-59) U/L ALT 506 H (21-72) U/L Total Protein 5.1 L (6.3-8.2) g/dL Albumin 2.6 L (3.5-5.0) g/dL 09/10/18 09/10/18 09/10/18 Range/Units 06:10 11:05 11:47 WBC 15.4 H (3.8-10.6) k/uL RBC 3.76 L (4.30-5.90) m/uL Hgb 11.8 L (13.0-17.5) gm/dL Hct 35.3 L (39.0-53.0) % Neutrophils # (1.3-7.7) k/uL Monocytes # (0-1.0) k/uL PT (9.0-12.0) sec INR (<1.2) APTT (22.0-30.0) sec ABG pO2 (83-108) mmHg ABG Total CO2 (19-24) mmol/L ABG O2 Saturation (94-97) % Sodium (137-145) mmol/L Chloride (98-107) mmol/L BUN (9-20) mg/dL Creatinine (0.66-1.25) mg/dL Glucose (74-99) mg/dL POC Glucose (mg/dL) 135 H 106 H (75-99) mg/dL Calcium (8.4-10.2) mg/dL AST (17-59) U/L ALT (21-72) U/L Total Protein (6.3-8.2) g/dL Albumin (3.5-5.0) g/dL 09/10/18 09/10/18 09/10/18 Range/Units 15:05 17:50 18:16 WBC 14.6 H (3.8-10.6) k/uL RBC 3.44 L (4.30-5.90) m/uL Hgb 10.8 L (13.0-17.5) gm/dL Hct 32.3 L (39.0-53.0) % Neutrophils # (1.3-7.7) k/uL Monocytes # (0-1.0) k/uL PT (9.0-12.0) sec INR (<1.2) APTT 53.4 H (22.0-30.0) sec ABG pO2 (83-108) mmHg ABG Total CO2 (19-24) mmol/L ABG O2 Saturation (94-97) % Sodium (137-145) mmol/L Chloride (98-107) mmol/L BUN (9-20) mg/dL Creatinine (0.66-1.25) mg/dL Glucose (74-99) mg/dL POC Glucose (mg/dL) 118 H (75-99) mg/dL Calcium (8.4-10.2) mg/dL AST (17-59) U/L ALT (21-72) U/L Total Protein (6.3-8.2) g/dL Albumin (3.5-5.0) g/dL 09/10/18 09/10/18 Range/Units 21:40 21:40 WBC 13.6 H (3.8-10.6) k/uL RBC 3.34 L (4.30-5.90) m/uL Hgb 10.7 L (13.0-17.5) gm/dL Hct 31.2 L (39.0-53.0) % Neutrophils # 9.9 H (1.3-7.7) k/uL Monocytes # (0-1.0) k/uL PT (9.0-12.0) sec INR (<1.2) APTT (22.0-30.0) sec ABG pO2 (83-108) mmHg ABG Total CO2 (19-24) mmol/L ABG O2 Saturation (94-97) % Sodium 136 L (137-145) mmol/L Chloride 108 H (98-107) mmol/L BUN (9-20) mg/dL Creatinine 1.79 H (0.66-1.25) mg/dL Glucose 154 H (74-99) mg/dL POC Glucose (mg/dL) (75-99) mg/dL Calcium 7.0 L (8.4-10.2) mg/dL AST (17-59) U/L ALT (21-72) U/L Total Protein (6.3-8.2) g/dL Albumin (3.5-5.0) g/dL Microbiology - Last 24 Hours (Table) 09/09/18 15:00 Urine Culture - Final Urine,Catheterized 09/09/18 23:19 Gram Stain - Preliminary Sputum Sputum Culture - Preliminary Assessment and Plan Assessment: Acute cardiopulmonary arrest likely due to pulmonary embolism. Status post CPR and spontaneous return of circulation Acute hypercapnic respiratory failure. Currently on mechanical ventilator Massive pulmonary embolism with right ventricular strain. Patient was given TPA during CPR Elevated troponin level secondary to right ventricular strain Acute lower extremity DVT Family history of pulmonary embolism in his brother Mild hyperkalemia 5.3 Recent history of pulmonary embolism about a year ago. Stopped taking Coumadin since November 2017 Previous history of smoking Bilateral lower extremity chronic lymphedema Morbid obesity with BMI 43.7 Seborrheic dermatitis history Anxiety Plan: Patient will be continued on IV heparin and monitor closely in the MICU. Patient was given TPA. Continue with pressor support. Cardiology and pulmonary is following. Continue with mechanical ventilation. Monitor H&H. Discussed with his daughter at bedside in detail. Prognosis is poor. Further recommendations based on the clinical course. Time with Patient: Greater than 30
[2018-09-10] MEDS ORDERED: POTASSIUM BICARBONATE/CIT AC 20 MEQ TABLET.EFF NG-TUBE SCH (23:00)
[2018-09-10] MEDS: MAGNESIUM SULFATE-D5W PMX 1 GM in DEXTROSE/WATER 1 100ML.BAG IVPB SCH (23:28)
[2018-09-11 00:39] LABS: Glucose,Whole Blood 169 mg/dL (75-99)
[2018-09-11] MEDS: AMIODARONE 450 MG in DEXTROSE 5% IN WATER 250 ML IV SCH ×4 (01:10→05:59)
[2018-09-11] MEDS: INSULIN ASPART 100 UNIT/ML 1 ML 10 ML VIAL SQ SCH ×4 (01:10→18:17)
[2018-09-11] MEDS: HYDROmorphone 1 MG/ML 1 ML SYRINGE IVP PRN ×3 (01:11→20:34)
[2018-09-11] MEDS: MAGNESIUM SULFATE-D5W PMX 1 GM in DEXTROSE/WATER 1 100ML.BAG IVPB SCH (01:15)
[2018-09-11] MEDS: PROPOFOL 1,000 MG in EMPTY BAG 1 BAG IV SCH ×9 (02:58→22:20)
[2018-09-11] MEDS: SODIUM CHLORIDE 0.9% 1,000 ML IV SCH ×2 (03:33→16:48)
[2018-09-11] MEDS: IPRATROPIUM-ALBUTEROL 3 ML NEB INHALATION SCH ×6 (03:59→23:37)
[2018-09-11 04:54] LABS: ABG Base Excess 1.8 mmol/L; ABG HCO3 26 mmol/L (21-25); ABG Oxygen Saturation 97.9 % (94-97); ABG PCO2 38 mmHg (35-45); ABG PH 7.44 (7.35-7.45); ABG PO2 113 mmHg (83-108); ABG TCO2 27 mmol/L (19-24)
[2018-09-11 05:06] LABS: Basophils # (A) 0.1 k/uL (0-0.2); Basophils % (A) 1 %; Eosinophils # (A) 0.3 k/uL (0-0.7); Eosinophils % (A) 2 %; HCT 30.2 % (39.0-53.0); HGB 9.9 gm/dL (13.0-17.5); Lymphocytes # (A) 2.7 k/uL (1.0-4.8); Lymphocytes % (A) 21 %; MCH 30.9 pg (25.0-35.0); MCHC 32.8 g/dL (31.0-37.0); MCV 94.1 fL (80.0-100.0); Mean Platelet Volume 7.4; Monocytes # (A) 0.9 k/uL (0-1.0); Monocytes % (A) 7 %; Neutrophils # (A) 8.7 k/uL (1.3-7.7); Neutrophils % (A) 68 %; Platelet Count 236 k/uL (150-450); RBC 3.21 m/uL (4.30-5.90); RDW 13.7 % (11.5-15.5); WBC 12.9 k/uL (3.8-10.6)
[2018-09-11 05:14] LABS: Glucose,Whole Blood 177 mg/dL (75-99)
[2018-09-11 05:21] LABS: Albumin 2.4 g/dL (3.5-5.0); Magnesium 2.3 mg/dL (1.6-2.3); Phosphorus 2.5 mg/dL (2.5-4.5); Potassium 3.5 mmol/L (3.5-5.1); Total Bilirubin 0.4 mg/dL (0.2-1.3); Total Protein 4.8 g/dL (6.3-8.2)
[2018-09-11] MEDS: HEPARIN SOD,PORK IN 0.45% NACL 25,000 UNIT in 0.45% NACL 1 500ML.BAG IV SCH ×2 (05:39→15:50)
[2018-09-11] MEDS: POTASSIUM BICARBONATE/CIT AC 20 MEQ TABLET.EFF NG-TUBE SCH ×2 (05:58→08:16)
--- NOTE | 2018-09-11 07:03 | P.PN ---
Subjective Progress Note Date: 09/11/18 Principal diagnosis: Respiratory failure, massive bilateral pulmonary embolism Progress note dated 09/10/2018 52-year-old male who presented to the emergency department with massive bilateral pulmonary embolism, right ventricular enlargement and right heart strain. The patient was started on IV heparin and admitted to the general medical floor. The patient subsequently had a cardiac arrest and was transferred to the intensive care unit we had a prolonged cardiopulmonary arrest with prolonged cardiopulmonary resuscitation and eventual return of spontaneous circulation. The patient was given systemic TPA by the ER physician at the bedside. Lines were placed yesterday by myself my nurse practitioner. The patient remains on IV heparin. The patient's overall situation is poor. In addition to prolonged resuscitation, the patient had the massive bilateral pulmonary embolism. We attempted to see whether or not our interventional colleagues would be willing to do EKOS on this patient but his instability in the fact that he receive systemic TPA precluded that. He in addition has a previous history of DVT and pulmonary most him was treated with blood thinners for 6 months he has an acute DVT of the right lower extremity on this admission morbid obesity previous history of tobacco use and sedentary lifestyle anxiety and previous cholecystectomy and hernia repair. His overall prognosis at this point is poor. He remains on the mechanical ventilator on the volume assist control mode with a rate of 32 tidal volume 500 FiO2 40% PEEP of 5. Arterial blood gases on the same settings except 60% show a PaO2 of 222 PaCO2 of 36 and a pH of 7.45. He is on propofol at 45 mics per kilogram per minute, norepinephrine at 20 mics per minute heparin via weightbase protocol a saline IV at 75 mL an hour and amiodarone at 1 mg/m. In addition, yesterday should change, the patient apparently had an episode of supraventricular tachycardia cardioversion was attempted an adenosine was given. More recently, at 07 10 this morning, again with an episode of SVT, adenosine was given which seemed to help in the cardiology started the patient on amiodarone. Chest x- ray is consistent with fluid overload. Again prognosis is poor this point. We will attempt to talk to the family sometime today. Progress note dated 09/11/2018 52-year-old gentleman with a history of massive bilateral pulmonary embolism right ventricular enlargement and right heart strain. The patient's hospital course has been very abdulaziz at best. He did receive systemic TPA and was on IV heparin until yesterday which time was turned off because of ongoing bleeding. The patient's overall prognosis remains very guarded. The patient remains on the volume assist control mode rate of 32, tidal volume of 500, FiO2 40% and a PEEP of 5. Arterial blood gases show a PaO2 of 113 PaCO2 38 and a pH of 7.4. The patient is on saline at 75 mL an hour, propofol 65 mics per kilogram per minute, no epinephrine at 22 mcg/m, amiodarone 0.5 mg/m and vital AF at 37 with a goal of 37 mL an hour. Heparin was discontinued yesterday because of ongoing bleeding from the cavity and NG tube. In addition, he's had about a 1 g hemoglobin drop on a daily basis. This morning's hemoglobin is 9.9. I did have a chance to speak in detail yesterday to the daughter. The patient is currently unmarried. There are not many family members. The patient does have a previous history of DVT and pulmonary most him and apparently was treated for some period of time with blood thinners. Objective - Vital Signs Vital signs: Vital Signs Temp 98.2 F 09/11/18 04:00 Pulse 67 09/11/18 06:15 Resp 32 H 09/11/18 06:15 BP 127/67 09/11/18 06:15 Pulse Ox 98 09/11/18 06:15 Intake & Output 09/10/18 09/10/18 09/11/18 06:59 18:59 06:59 Intake Total 7621.187 3080.924 2171.819 Output Total 1000 1335 655 Balance 995.418 482.741 8686.819 Weight 152.3 kg 152.3 kg Intake: IV 1163 878 936 0.9 230 770 900 Dextrose 5% in Water 1, 900 75 000 ml @ 75 mls/hr IV . [id number] GIOVANNY with Sodium Bicarb (1 Meq/ml) 100 ml Rx#:[id number] Pressure bag 33 33 36 Intake, IV Titration 832.418 944.924 898.819 Amount Amiodarone 450 mg In 186.462 425.32 Dextrose 5% in Water 250 ml @ 1 MG/MIN 34.53 mls/ hr IV .[id number] GIOVANNY Rx#: [id number] Cisatracurium 200 mg In 111.776 Sodium Chloride 0.9% 180 ml @ 0.5 MCG/KG/MIN 4.49 mls/hr IV .Q24H GIOVANNY Rx#: [id number] Heparin Sod,Pork in 0.45% 500 356.758 NaCl 25,000 unit In 0.45 % NaCl 1 500ml.bag @ 14.9 UNITS/KG/HR 45.95 mls/hr IV .[id number] GIOVANNY Rx#: [id number] Norepinephrine 16 mg In 27.725 222.275 152.928 Sodium Chloride 0.9% 250 ml @ Titrate IV .Q0M GIOVANNY Rx#:[id number] Propofol 1,000 mg In 192.917 179.429 320.571 Empty Bag 1 bag @ Titrate IV .Q0M GIOVANNY Rx#: [id number] Tube Feeding 60 307 Other 30 30 Output: Urine 1000 785 655 Emesis 550 Other: Voiding Method Indwelling Catheter Indwelling Catheter Indwelling Catheter # Voids 1 ABP, PAP, CO, CI - Last Documented Arterial Blood Pressure 122/56 - Exam No acute distress, sedated, orally placed endotracheal tube and NG tube. There is blood coming from the mouth and dried blood in the NG tube. HEENT examination is grossly unremarkable. Mucous membranes are moist. Neck supple. Full range of motion. No adenopathy thyromegaly or neck vein distention. Cardiovascular examination reveals regular rhythm rate. S1-S2 normal. No S3 or S4. No discernible murmur noted. Heart sounds are distant. Heart rate is100. Lungs reveal coarse bilateral breath sounds. Some crackles noted bilaterally. Diffuse rhonchi are appreciated. No wheezes. Breath sounds are diminished throughout. Breath sounds are equal bilaterally. Abdomen is obese. Bowel sounds are noted. No masses appreciated. Extremities. There is some chronic venous stasis changes. There is some pitting. Some mild livedo reticularis. Skin is reveal some chronic venous stasis changes. Neurologic examination could not be adequately assessed as the patient is currently sedated. - Labs CBC & Chem 7: 09/11/18 04:52 09/11/18 04:52 Labs: Abnormal Lab Results - Last 24 Hours (Table) 09/10/18 09/10/18 09/10/18 Range/Units 11:05 11:47 15:05 WBC 15.4 H (3.8-10.6) k/uL RBC 3.76 L (4.30-5.90) m/uL Hgb 11.8 L (13.0-17.5) gm/dL Hct 35.3 L (39.0-53.0) % Neutrophils # (1.3-7.7) k/uL APTT 53.4 H (22.0-30.0) sec ABG pO2 (83-108) mmHg ABG HCO3 (21-25) mmol/L ABG Total CO2 (19-24) mmol/L ABG O2 Saturation (94-97) % Sodium (137-145) mmol/L Chloride (98-107) mmol/L Creatinine (0.66-1.25) mg/dL Glucose (74-99) mg/dL POC Glucose (mg/dL) 106 H (75-99) mg/dL Calcium (8.4-10.2) mg/dL AST (17-59) U/L ALT (21-72) U/L Total Protein (6.3-8.2) g/dL Albumin (3.5-5.0) g/dL 09/10/18 09/10/18 09/10/18 Range/Units 17:50 18:16 21:40 WBC 14.6 H 13.6 H (3.8-10.6) k/uL RBC 3.44 L 3.34 L (4.30-5.90) m/uL Hgb 10.8 L 10.7 L (13.0-17.5) gm/dL Hct 32.3 L 31.2 L (39.0-53.0) % Neutrophils # 9.9 H (1.3-7.7) k/uL APTT (22.0-30.0) sec ABG pO2 (83-108) mmHg ABG HCO3 (21-25) mmol/L ABG Total CO2 (19-24) mmol/L ABG O2 Saturation (94-97) % Sodium (137-145) mmol/L Chloride (98-107) mmol/L Creatinine (0.66-1.25) mg/dL Glucose (74-99) mg/dL POC Glucose (mg/dL) 118 H (75-99) mg/dL Calcium (8.4-10.2) mg/dL AST (17-59) U/L ALT (21-72) U/L Total Protein (6.3-8.2) g/dL Albumin (3.5-5.0) g/dL 09/10/18 09/11/18 09/11/18 Range/Units 21:40 00:37 04:50 WBC (3.8-10.6) k/uL RBC (4.30-5.90) m/uL Hgb (13.0-17.5) gm/dL Hct (39.0-53.0) % Neutrophils # (1.3-7.7) k/uL APTT (22.0-30.0) sec ABG pO2 113 H (83-108) mmHg ABG HCO3 26 H (21-25) mmol/L ABG Total CO2 27 H (19-24) mmol/L ABG O2 Saturation 97.9 H (94-97) % Sodium 136 L (137-145) mmol/L Chloride 108 H (98-107) mmol/L Creatinine 1.79 H (0.66-1.25) mg/dL Glucose 154 H (74-99) mg/dL POC Glucose (mg/dL) 169 H (75-99) mg/dL Calcium 7.0 L (8.4-10.2) mg/dL AST (17-59) U/L ALT (21-72) U/L Total Protein (6.3-8.2) g/dL Albumin (3.5-5.0) g/dL 09/11/18 09/11/18 09/11/18 Range/Units 04:52 04:52 05:12 WBC 12.9 H (3.8-10.6) k/uL RBC 3.21 L (4.30-5.90) m/uL Hgb 9.9 L (13.0-17.5) gm/dL Hct 30.2 L (39.0-53.0) % Neutrophils # 8.7 H (1.3-7.7) k/uL APTT (22.0-30.0) sec ABG pO2 (83-108) mmHg ABG HCO3 (21-25) mmol/L ABG Total CO2 (19-24) mmol/L ABG O2 Saturation (94-97) % Sodium 136 L (137-145) mmol/L Chloride (98-107) mmol/L Creatinine 1.77 H (0.66-1.25) mg/dL Glucose 155 H (74-99) mg/dL POC Glucose (mg/dL) 177 H (75-99) mg/dL Calcium 7.0 L (8.4-10.2) mg/dL AST 135 H (17-59) U/L ALT 275 H (21-72) U/L Total Protein 4.8 L (6.3-8.2) g/dL Albumin 2.4 L (3.5-5.0) g/dL Microbiology - Last 24 Hours (Table) 09/09/18 15:00 Urine Culture - Final Urine,Catheterized 09/09/18 23:19 Gram Stain - Preliminary Sputum Sputum Culture - Preliminary Assessment and Plan Assessment: Assessment Massive pulmonary embolism with evidence of right heart strain and acute dilatation of the right ventricle subsequent cardiopulmonary arrest prolonged cardiopulmonary resuscitation and eventual return of spontaneous circulation, patient intubated on September 09 during the resuscitation. Prolonged cardiopulmonary arrest with prolonged cardiopulmonary resuscitation but with eventual return of spontaneous ventilation, rule out anoxic brain injury Previous history of DVT and pulmonary embolism, treated with 6 months of warfarin Ongoing GI bleed, requiring me to stop the IV heparin at this time. Acute DVT, right lower extremity Systemic administration of TPA on this admission Morbid obesity. Previous history of tobacco use History of anxiety Status post cholecystectomy and hernia repair Plan: Plan dated 09/09/2018 After a prolonged resuscitation and difficult intubation, the patient was eventually transferred back up to the ICU. The patient will be placed on the mechanical ventilator with settings of tidal volume 500, 100%, PEEP of 5, and rate of 24 breaths per minute. We'll place him on the volume assist control mode. We'll see if we can't place lines in the patient. The right groin line is probably a dirty line. He did receive systemic TPA. White count is 12.6, hemoglobin 15.4, hematocrit 48.3 and platelet count 279,000. PTT was 46.6. Sodium 139 potassium 4.6 chloride 109 CO2 22 BUN and creatinine were 12 and 0.99. Troponin was 0.258. Chest x-ray, labs, medications, computed tomography scan, and Doppler of lower extremity are reviewed. Medications are reviewed. Prognosis is guarded. Critical care time 40 minutes Plan dated 09/10/2018 Currently, the patient is on the assist control mode. Blood gases have been evaluated. FiO2 dropped from 60 down to 40%. The patient remains on propofol, norepinephrine, IV heparin, and IV amiodarone. His overall prognosis remains very poor. White count is 15 hemoglobin 12.7 hematocrit 38.8 and platelet count 288,000. PT 13.3 INR 1.4 and PTT 87.1. Sodium and potassium are normal. Chloride 108 CO2 25 BUN and creatinine were 21 and 1.76. AST was 559 8 hours T was 506 and albumin was 2.6. Microbiologic studies remain negative. Chest x- ray labs and medications are all reviewed. Additional recommendations and suggestions are forthcoming. Medications will be reviewed. Critical care time 38 minutes Plan Dated 09/11/2018 White Count Is 12.9, Hemoglobin down to 9.9, Hematocrit 30.2 and Platelet Count 236,000. Arterial Blood Gases Show a PaO2 of 113 a PaCO2 of 38 and a pH of 7.44. The FiO2 Can Be Dropped down to 35%. Sodium Is 136, Potassium 3.5, Chloride 107 and CO2 Is 26 BUN/creatinine Were 16 and 1.77 Respectively. Thus Far, Microbiologic Studies Are Negative. Chest X-Ray Shows Bilateral Pleural Effusions, Cardiomegaly, and Some Basilar Atelectasis or Infiltrate. Labs Medications and X-Rays Are All Reviewed. Prognosis Remains Very Guarded. I Did Have a Chance to Speak in Detail to the Daughter Yesterday. She Understands the [place] of the Situation. We Will Continue to Follow. Critical Care time is 33 minutes Time with Patient: Greater than 30
--- NOTE | 2018-09-11 07:09 | P.PN ---
Subjective Progress Note Date: 09/11/18 Principal diagnosis: Pulmonary embolization This is a pleasant 52-year-old gentleman with a past medical history significant for a visiting as well as history of DVT and PE was admitted to the hospital with shortness of breath and was diagnosed with PE. The patient coded twice yesterday. He received CPR twice as well. Currently he is in normal sinus mechanism. On follow-up with the patient today, September [id number], he remains in normal sinus mechanism. He is intubated and he is on ventilator. He remained in normal sinus mechanism. Continues to be on amiodarone IV which I'm going to switch to amiodarone by mouth at 400 mg by mouth twice a day. Continues to be hemodynamically unstable and requiring vasopressors with levo. The echocardiogram revealed evidence of right ventricular pressure/volume overload. The hemoglobin has been dropping and because of that he heparin was stopped. Objective - Vital Signs Vital signs: Vital Signs Temp 98.2 F 09/11/18 04:00 Pulse 67 09/11/18 06:15 Resp 32 H 09/11/18 06:15 BP 127/67 09/11/18 06:15 Pulse Ox 98 09/11/18 06:15 Intake & Output 09/10/18 09/11/18 09/11/18 18:59 06:59 18:59 Intake Total 8477.825 6887.819 115 Output Total 1335 655 100 Balance 577.976 9922.819 15 Weight 152.3 kg Intake: IV 878 936 78 0.9 770 900 75 Dextrose 5% in Water 1, 75 000 ml @ 75 mls/hr IV . [id number] GIOVANNY with Sodium Bicarb (1 Meq/ml) 100 ml Rx#:[id number] Pressure bag 33 36 3 Intake, IV Titration 944.924 898.819 Amount Amiodarone 450 mg In 186.462 425.32 Dextrose 5% in Water 250 ml @ 1 MG/MIN 34.53 mls/ hr IV .Q7H31M GIOVANNY Rx#: [id number] Heparin Sod,Pork in 0.45% 356.758 NaCl 25,000 unit In 0.45 % NaCl 1 500ml.bag @ 14.9 UNITS/KG/HR 45.95 mls/hr IV .[id number] GIOVANNY Rx#: [id number] Norepinephrine 16 mg In 222.275 152.928 Sodium Chloride 0.9% 250 ml @ Titrate IV .Q0M GIOVANNY Rx#:[id number] Propofol 1,000 mg In 179.429 320.571 Empty Bag 1 bag @ Titrate IV .Q0M GIOVANNY Rx#: [id number] Tube Feeding 60 307 37 Other 30 30 Output: Urine 785 655 100 Emesis 550 Other: Voiding Method Indwelling Catheter Indwelling Catheter # Voids 1 ABP, PAP, CO, CI - Last Documented Arterial Blood Pressure 122/56 - Constitutional General appearance: Present: no acute distress - Respiratory Respiratory: bilateral: CTA - Cardiovascular Rhythm: regular Heart sounds: normal: S1, S2 - Labs CBC & Chem 7: 09/11/18 04:52 09/11/18 04:52 Labs: Abnormal Lab Results - Last 24 Hours (Table) 09/10/18 09/10/18 09/10/18 Range/Units 11:05 11:47 15:05 WBC 15.4 H (3.8-10.6) k/uL RBC 3.76 L (4.30-5.90) m/uL Hgb 11.8 L (13.0-17.5) gm/dL Hct 35.3 L (39.0-53.0) % Neutrophils # (1.3-7.7) k/uL APTT 53.4 H (22.0-30.0) sec ABG pO2 (83-108) mmHg ABG HCO3 (21-25) mmol/L ABG Total CO2 (19-24) mmol/L ABG O2 Saturation (94-97) % Sodium (137-145) mmol/L Chloride (98-107) mmol/L Creatinine (0.66-1.25) mg/dL Glucose (74-99) mg/dL POC Glucose (mg/dL) 106 H (75-99) mg/dL Calcium (8.4-10.2) mg/dL AST (17-59) U/L ALT (21-72) U/L Total Protein (6.3-8.2) g/dL Albumin (3.5-5.0) g/dL 09/10/18 09/10/18 09/10/18 Range/Units 17:50 18:16 21:40 WBC 14.6 H 13.6 H (3.8-10.6) k/uL RBC 3.44 L 3.34 L (4.30-5.90) m/uL Hgb 10.8 L 10.7 L (13.0-17.5) gm/dL Hct 32.3 L 31.2 L (39.0-53.0) % Neutrophils # 9.9 H (1.3-7.7) k/uL APTT (22.0-30.0) sec ABG pO2 (83-108) mmHg ABG HCO3 (21-25) mmol/L ABG Total CO2 (19-24) mmol/L ABG O2 Saturation (94-97) % Sodium (137-145) mmol/L Chloride (98-107) mmol/L Creatinine (0.66-1.25) mg/dL Glucose (74-99) mg/dL POC Glucose (mg/dL) 118 H (75-99) mg/dL Calcium (8.4-10.2) mg/dL AST (17-59) U/L ALT (21-72) U/L Total Protein (6.3-8.2) g/dL Albumin (3.5-5.0) g/dL 09/10/18 09/11/18 09/11/18 Range/Units 21:40 00:37 04:50 WBC (3.8-10.6) k/uL RBC (4.30-5.90) m/uL Hgb (13.0-17.5) gm/dL Hct (39.0-53.0) % Neutrophils # (1.3-7.7) k/uL APTT (22.0-30.0) sec ABG pO2 113 H (83-108) mmHg ABG HCO3 26 H (21-25) mmol/L ABG Total CO2 27 H (19-24) mmol/L ABG O2 Saturation 97.9 H (94-97) % Sodium 136 L (137-145) mmol/L Chloride 108 H (98-107) mmol/L Creatinine 1.79 H (0.66-1.25) mg/dL Glucose 154 H (74-99) mg/dL POC Glucose (mg/dL) 169 H (75-99) mg/dL Calcium 7.0 L (8.4-10.2) mg/dL AST (17-59) U/L ALT (21-72) U/L Total Protein (6.3-8.2) g/dL Albumin (3.5-5.0) g/dL 09/11/18 09/11/18 09/11/18 Range/Units 04:52 04:52 05:12 WBC 12.9 H (3.8-10.6) k/uL RBC 3.21 L (4.30-5.90) m/uL Hgb 9.9 L (13.0-17.5) gm/dL Hct 30.2 L (39.0-53.0) % Neutrophils # 8.7 H (1.3-7.7) k/uL APTT (22.0-30.0) sec ABG pO2 (83-108) mmHg ABG HCO3 (21-25) mmol/L ABG Total CO2 (19-24) mmol/L ABG O2 Saturation (94-97) % Sodium 136 L (137-145) mmol/L Chloride (98-107) mmol/L Creatinine 1.77 H (0.66-1.25) mg/dL Glucose 155 H (74-99) mg/dL POC Glucose (mg/dL) 177 H (75-99) mg/dL Calcium 7.0 L (8.4-10.2) mg/dL AST 135 H (17-59) U/L ALT 275 H (21-72) U/L Total Protein 4.8 L (6.3-8.2) g/dL Albumin 2.4 L (3.5-5.0) g/dL Microbiology - Last 24 Hours (Table) 09/09/18 15:00 Urine Culture - Final Urine,Catheterized 09/09/18 23:19 Gram Stain - Preliminary Sputum Sputum Culture - Preliminary Assessment and Plan Assessment: Assessment Massive PE History of DVT PE in the past Morbid obesity Status post cardiopulmonary arrest Plan DC amiodarone IV and start the patient on amiodarone by mouth Continue holding anticoagulation in view of the dropping in the hemoglobin Continue monitor the hemoglobin Try to wean him from the Levothroid Follow-up with the patient
[2018-09-11 07:51] LABS: T4, Free (Free Thyroxine) 1.17 ng/dL (0.78-2.19)
--- NOTE | 2018-09-11 08:05 | XR ---
EXAMINATION TYPE: XR chest 1V portable DATE OF EXAM: 09/11/2018 COMPARISON: Prior chest x-ray 09/10/2018 HISTORY: Intubated TECHNIQUE: Single frontal view of the chest is obtained. FINDINGS: Patient is rotated. Endotracheal tube and NG tube are overlying appropriate position, left jugular central venous catheter shows the distal tip overlying the cavoatrial junction level. There is no evident pneumothorax. Bibasilar density is present, hemidiaphragms are secured. Heart remains e nlarged. There are overlying cardiac leads. Central vascularity and brice are stable. IMPRESSION: Findings are similar. There may be basilar atelectasis versus edema and associated effus ions, pneumonia not excluded. Correlate for possible heart failure.
[2018-09-11] MEDS: AMIODARONE 200 MG TAB PO SCH ×2 (08:16→20:25)
[2018-09-11] MEDS: CHLORHEXIDINE GLUCONATE 15 ML CUP MUCOUS MEM SCH ×2 (08:17→20:26)
[2018-09-11] MEDS: PANTOPRAZOLE 40 MG/10 ML VIAL IVP SCH (08:17)
[2018-09-11 11:54] LABS: Glucose,Whole Blood 123 mg/dL (75-99)
--- NOTE | 2018-09-11 12:25 | P.PN ---
Subjective Progress Note Date: 09/11/18 Principal diagnosis: Massive pulmonary embolism Acute cardiopulmonary arrest status post CPR and intubation 09/11/2018 52-year-old gentleman with a history of massive bilateral pulmonary embolism right ventricular enlargement and right heart strain. He did receive systemic TPA and was on IV heparin until yesterday which time was turned off because of ongoing bleeding. The patient's overall prognosis remains very guarded. The patient remains on ventilator. Arterial blood gases show a PaO2 of 113 PaCO2 38 and a pH of 7.4. The patient is on saline at 75 mL an hour; Heparin was discontinued yesterday because of ongoing bleeding from the cavity and NG tube. In addition, he's had about a 1 g hemoglobin drop on a daily basis. This morning's hemoglobin is 9.9. Objective - Vital Signs Vital signs: Vital Signs Temp 98.6 F 09/11/18 08:00 Pulse 87 09/11/18 11:35 Resp 32 H 09/11/18 10:00 BP 127/67 09/11/18 07:01 Pulse Ox 97 09/11/18 10:00 Intake & Output 09/10/18 09/11/18 09/11/18 18:59 06:59 18:59 Intake Total 1276.208 3018.819 809.246 Output Total 1335 655 500 Balance 466.966 5204.819 309.246 Weight 152.3 kg 152.3 kg Intake: IV 878 936 312 0.9 770 900 300 Dextrose 5% in Water 1, 75 000 ml @ 75 mls/hr IV . [id number] GIOVANNY with Sodium Bicarb (1 Meq/ml) 100 ml Rx#:[id number] Pressure bag 33 36 12 Intake, IV Titration 944.924 898.819 252.246 Amount Amiodarone 450 mg In 186.462 425.32 Dextrose 5% in Water 250 ml @ 1 MG/MIN 34.53 mls/ hr IV .Q7H31M GIOVANNY Rx#: [id number] Heparin Sod,Pork in 0.45% 356.758 NaCl 25,000 unit In 0.45 % NaCl 1 500ml.bag @ 14.9 UNITS/KG/HR 45.95 mls/hr IV .[id number] GIOVANNY Rx#: [id number] Norepinephrine 16 mg In 222.275 152.928 86.233 Sodium Chloride 0.9% 250 ml @ Titrate IV .Q0M GIOVANNY Rx#:[id number] Propofol 1,000 mg In 179.429 320.571 166.013 Empty Bag 1 bag @ Titrate IV .Q0M GIOVANNY Rx#: [id number] Oral 0 Tube Feeding 60 307 185 Other 30 30 60 Output: Urine 785 655 500 Emesis 550 Other: Voiding Method Indwelling Catheter Indwelling Catheter Indwelling Catheter # Voids 1 1 ABP, PAP, CO, CI - Last Documented Arterial Blood Pressure 122/56 - Exam No acute distress, sedated, orally placed endotracheal tube and NG tube. There is blood coming from the mouth and dried blood in the NG tube. HEENT examination is grossly unremarkable. Mucous membranes are moist. Neck supple. Full range of motion. No adenopathy thyromegaly or neck vein distention. Cardiovascular examination reveals regular rhythm rate. S1-S2 normal. No S3 or S4. No discernible murmur noted. Heart sounds are distant. Heart rate is100. Lungs reveal coarse bilateral breath sounds. Some crackles noted bilaterally. Diffuse rhonchi are appreciated. No wheezes. Breath sounds are diminished throughout. Breath sounds are equal bilaterally. Abdomen is obese. Bowel sounds are noted. No masses appreciated. Extremities. There is some chronic venous stasis changes. There is some pitting. Some mild livedo reticularis. Skin is reveal some chronic venous stasis changes. Neurologic examination could not be adequately assessed as the patient is currently sedated. - Labs CBC & Chem 7: 09/11/18 04:52 09/11/18 04:52 Labs: Abnormal Lab Results - Last 24 Hours (Table) 09/10/18 09/10/18 09/10/18 Range/Units 15:05 17:50 18:16 WBC 14.6 H (3.8-10.6) k/uL RBC 3.44 L (4.30-5.90) m/uL Hgb 10.8 L (13.0-17.5) gm/dL Hct 32.3 L (39.0-53.0) % Neutrophils # (1.3-7.7) k/uL APTT 53.4 H (22.0-30.0) sec ABG pO2 (83-108) mmHg ABG HCO3 (21-25) mmol/L ABG Total CO2 (19-24) mmol/L ABG O2 Saturation (94-97) % Sodium (137-145) mmol/L Chloride (98-107) mmol/L Creatinine (0.66-1.25) mg/dL Glucose (74-99) mg/dL POC Glucose (mg/dL) 118 H (75-99) mg/dL Calcium (8.4-10.2) mg/dL AST (17-59) U/L ALT (21-72) U/L Total Protein (6.3-8.2) g/dL Albumin (3.5-5.0) g/dL 09/10/18 09/10/18 09/11/18 Range/Units 21:40 21:40 00:37 WBC 13.6 H (3.8-10.6) k/uL RBC 3.34 L (4.30-5.90) m/uL Hgb 10.7 L (13.0-17.5) gm/dL Hct 31.2 L (39.0-53.0) % Neutrophils # 9.9 H (1.3-7.7) k/uL APTT (22.0-30.0) sec ABG pO2 (83-108) mmHg ABG HCO3 (21-25) mmol/L ABG Total CO2 (19-24) mmol/L ABG O2 Saturation (94-97) % Sodium 136 L (137-145) mmol/L Chloride 108 H (98-107) mmol/L Creatinine 1.79 H (0.66-1.25) mg/dL Glucose 154 H (74-99) mg/dL POC Glucose (mg/dL) 169 H (75-99) mg/dL Calcium 7.0 L (8.4-10.2) mg/dL AST (17-59) U/L ALT (21-72) U/L Total Protein (6.3-8.2) g/dL Albumin (3.5-5.0) g/dL 09/11/18 09/11/18 09/11/18 Range/Units 04:50 04:52 04:52 WBC 12.9 H (3.8-10.6) k/uL RBC 3.21 L (4.30-5.90) m/uL Hgb 9.9 L (13.0-17.5) gm/dL Hct 30.2 L (39.0-53.0) % Neutrophils # 8.7 H (1.3-7.7) k/uL APTT (22.0-30.0) sec ABG pO2 113 H (83-108) mmHg ABG HCO3 26 H (21-25) mmol/L ABG Total CO2 27 H (19-24) mmol/L ABG O2 Saturation 97.9 H (94-97) % Sodium 136 L (137-145) mmol/L Chloride (98-107) mmol/L Creatinine 1.77 H (0.66-1.25) mg/dL Glucose 155 H (74-99) mg/dL POC Glucose (mg/dL) (75-99) mg/dL Calcium 7.0 L (8.4-10.2) mg/dL AST 135 H (17-59) U/L ALT 275 H (21-72) U/L Total Protein 4.8 L (6.3-8.2) g/dL Albumin 2.4 L (3.5-5.0) g/dL 09/11/18 09/11/18 Range/Units 05:12 11:52 WBC (3.8-10.6) k/uL RBC (4.30-5.90) m/uL Hgb (13.0-17.5) gm/dL Hct (39.0-53.0) % Neutrophils # (1.3-7.7) k/uL APTT (22.0-30.0) sec ABG pO2 (83-108) mmHg ABG HCO3 (21-25) mmol/L ABG Total CO2 (19-24) mmol/L ABG O2 Saturation (94-97) % Sodium (137-145) mmol/L Chloride (98-107) mmol/L Creatinine (0.66-1.25) mg/dL Glucose (74-99) mg/dL POC Glucose (mg/dL) 177 H 123 H (75-99) mg/dL Calcium (8.4-10.2) mg/dL AST (17-59) U/L ALT (21-72) U/L Total Protein (6.3-8.2) g/dL Albumin (3.5-5.0) g/dL Microbiology - Last 24 Hours (Table) 09/09/18 15:00 Urine Culture - Final Urine,Catheterized 09/09/18 23:19 Gram Stain - Preliminary Sputum Sputum Culture - Preliminary Assessment and Plan Assessment: Massive pulmonary embolism with evidence of right heart strain and acute dilatation of the right ventricle subsequent cardiopulmonary arrest prolonged cardiopulmonary resuscitation and eventual return of spontaneous circulation, patient intubated on September 09 during the resuscitation. Patient remains in ICU at this time on mechanical ventilation; - Patient didn't receive TPA; current concern is drop hemoglobin Prolonged cardiopulmonary arrest with prolonged cardiopulmonary resuscitation but with eventual return of spontaneous ventilation, rule out anoxic brain injury Previous history of DVT and pulmonary embolism, treated with 6 months of warfarin Ongoing GI bleed, requiring me to stop the IV heparin at this time. Acute DVT, right lower extremity Systemic administration of TPA on this admission Morbid obesity. Previous history of tobacco use History of anxiety Status post cholecystectomy and hernia repair Time with Patient: Greater than 30
[2018-09-11] MEDS: MULTIVITAMINS, THERA 1 EACH TAB PO SCH (12:26)
--- NOTE | 2018-09-11 12:31 | CDI ---
Last Revision, October 2017 Documentation Clarification Form Date: 09/11/2018 12:17:52 PM From: Mallika Carlos RN, CCDS Admit Date: 09/08/2018 3:01:00 PM Patient Name: Enrique Rowley Visit Number: [id number] ATTENTION: The Clinical Documentation Specialists (CDI) and [facility] Coding Staff appreciate your assistance in clarifying documentation. Please respond to the clarification below the line at the bottom and electronically sign. The CDI & [facility] Coding staff will review the response and follow-up if needed. Please note: Queries are made part of the Legal Health Record. If you have any questions, please contact the author of this message via ITS. Clint Vazquez MD Severe RV strain w/ acute PE is documented and requires further specificity. History/Risk Factors: PE, DVT, Massive bilateral PE this admission w/ Acute RLE DVT, anxiety Clinical Indicators: 09/11 Pulmonary progress Note: "massive bilateral pulmonary embolism, right ventricular enlargement and right heart strain." Echo results: EF 55-60%, Paradoxical/dysnergic septal wall motion consistent w elevated RVEDP CTA: Massive the bilateral pulmonary embolism with right ventricular enlargement suggestive of right ventricular strain correlate clinically. 2. A 7 mm and 4 mm right lower lobe pulmonary nodule not seen on the previous exam. Subpleural in location and may be postinflammatory. " Consults: Cardiology, Pulmonaology Treatment: Cordarone 400 mg PO BID Levophed titrate for B/P Terbutaline sulfate In your professional opinion, can you please further specify the severe RV strain if known? Acute Cor pulmonale Unable to determine Other, please specify If known, please specify if Cor Pulmonale is due to: Saddle Pulmonary Embolism Septic Pulmonary Embolism Pulmonary Hypertension Other, please specify Unable to determine Please continue to document in your progress notes and discharge summary in order to capture severity of illness and risk of mortality. Include clinical findings that support your diagnosis. Acute Cor pulmonale due to Saddle Pulmonary Embolism MTDD
[2018-09-11 14:20] LABS: Basophils % (A) 0 %; Eosinophils # (A) 0.2 k/uL (0-0.7); Eosinophils % (A) 2 %; HCT 27.8 % (39.0-53.0); HGB 9.6 gm/dL (13.0-17.5); Lymphocytes # (A) 1.4 k/uL (1.0-4.8); Lymphocytes % (A) 15 %; MCHC 34.4 g/dL (31.0-37.0); MCV 93.2 fL (80.0-100.0); Monocytes # (A) 0.5 k/uL (0-1.0); Monocytes % (A) 6 %; Neutrophils # (A) 7.1 k/uL (1.3-7.7); Neutrophils % (A) 75 %; Platelet Count 193 k/uL (150-450); RBC 2.99 m/uL (4.30-5.90); RDW 13.6 % (11.5-15.5); WBC 9.4 k/uL (3.8-10.6)
[2018-09-11] MEDS ORDERED: ADENOSINE 3 MG/ML 2 ML VIAL IVP ONE ×2 (14:20→19:33)
[2018-09-11] MEDS: NOREPINEPHRINE 16 MG in SODIUM CHLORIDE 0.9% 250 ML IV SCH (16:49)
[2018-09-11 18:11] LABS: Glucose,Whole Blood 106 mg/dL (75-99)
[2018-09-11] MEDS ORDERED: EPINEPHrine 10 ML SYRINGE (0.1 MG/ML) ONE (19:33)
[2018-09-11] MEDS ORDERED: AMIODARONE 50 MG/ML 3 ML VIAL IV ONE (19:33)
[2018-09-11] MEDS ORDERED: DEXTROSE 5% IN WATER 50 ML BAG ONE (19:33)
[2018-09-11] MEDS ORDERED: ACETAMINOPHEN IV (For NPO) 1,000 MG in EMPTY BAG 1 BAG IVPB ONE (22:51)
[2018-09-11 23:39] LABS: HCT 27.8 % (39.0-53.0); HGB 9.5 gm/dL (13.0-17.5); MCH 32.3 pg (25.0-35.0); MCHC 34.1 g/dL (31.0-37.0); MCV 94.9 fL (80.0-100.0); Mean Platelet Volume 7.7; Platelet Count 196 k/uL (150-450); RBC 2.93 m/uL (4.30-5.90); RDW 13.8 % (11.5-15.5); WBC 12.1 k/uL (3.8-10.6)
[2018-09-11 23:58] LABS: Glucose,Whole Blood 158 mg/dL (75-99)
[2018-09-12] MEDS: INSULIN ASPART 100 UNIT/ML 1 ML 10 ML VIAL SQ SCH ×4 (00:04→17:48)
[2018-09-12] MEDS ORDERED: ACETAMINOPHEN IV (For NPO) 1,000 MG in EMPTY BAG 1 BAG IVPB PRN (01:06)
[2018-09-12] MEDS: PROPOFOL 1,000 MG in EMPTY BAG 1 BAG IV SCH ×6 (01:30→16:30)
[2018-09-12] MEDS: IPRATROPIUM-ALBUTEROL 3 ML NEB INHALATION SCH ×6 (03:26→23:11)
[2018-09-12] MEDS: HEPARIN SOD,PORK IN 0.45% NACL 25,000 UNIT in 0.45% NACL 1 500ML.BAG IV SCH ×2 (03:38→17:41)
[2018-09-12 04:41] LABS: Basophils # (A) 0.1 k/uL (0-0.2); Basophils % (A) 0 %; Eosinophils # (A) 0.2 k/uL (0-0.7); Eosinophils % (A) 1 %; HCT 27.2 % (39.0-53.0); HGB 9.4 gm/dL (13.0-17.5); Lymphocytes # (A) 1.4 k/uL (1.0-4.8); Lymphocytes % (A) 10 %; MCH 32.8 pg (25.0-35.0); MCHC 34.6 g/dL (31.0-37.0); MCV 94.7 fL (80.0-100.0); Mean Platelet Volume 7.4; Monocytes # (A) 0.6 k/uL (0-1.0); Monocytes % (A) 4 %; Neutrophils # (A) 11.6 k/uL (1.3-7.7); Neutrophils % (A) 83 %; Platelet Count 197 k/uL (150-450); RBC 2.87 m/uL (4.30-5.90); RDW 13.9 % (11.5-15.5)
[2018-09-12] MEDS: SODIUM CHLORIDE 0.9% 1,000 ML IV SCH ×2 (04:41→20:45)
[2018-09-12 04:51] LABS: INR 1.1 (<1.2); Partial Thromboplastin Time 49.1 sec (22.0-30.0); Prothrombin Time 10.6 sec (9.0-12.0)
[2018-09-12 05:23] LABS: Albumin 2.5 g/dL (3.5-5.0); Calcium 7.9 mg/dL (8.4-10.2); Magnesium 2.4 mg/dL (1.6-2.3); Phosphorus 2.7 mg/dL (2.5-4.5); Potassium 4.1 mmol/L (3.5-5.1); Total Bilirubin 0.6 mg/dL (0.2-1.3); Total Protein 5.1 g/dL (6.3-8.2)
--- NOTE | 2018-09-12 06:30 | XR ---
EXAMINATION TYPE: XR chest 1V portable DATE OF EXAM: 09/12/2018 HISTORY: Tube placement. REFERENCE: Previous study dated 09/11/2018. FINDINGS: The patient is ET tube, NG tube and left subclavian catheter remain in place, unchanged in appearance. The heart is enlarged. There is bibasilar airspace disease. There are small, bilateral effusions. The overall appearance is unchanged. IMPRESSION: NO SIGNIFICANT INTERVAL CHANGE IN THE APPEARANCE OF THE CHEST.
[2018-09-12 06:51] LABS: Glucose,Whole Blood 128 mg/dL (75-99)
--- NOTE | 2018-09-12 06:52 | P.PN ---
Subjective Progress Note Date: 09/12/18 Principal diagnosis: Pulmonary embolization This is a pleasant 52-year-old gentleman with a past medical history significant for a visiting as well as history of DVT and PE was admitted to the hospital with shortness of breath and was diagnosed with PE. The patient coded twice yesterday. He received CPR twice as well. Currently he is in normal sinus mechanism. On follow-up with the patient today, September 122017, he remains in normal sinus mechanism. He is intubated and he is on ventilator. He remained in normal sinus mechanism. Yesterday he did have an episode of SVT which was converted to normal sinus mechanism by adenosine. Beside that he continues to be coming directly unstable and requiring vasopressors. Beside that he is on heparin IV. Hemoglobin is 9.4 this morning. Objective - Vital Signs Vital signs: Vital Signs Temp 100.5 F H 09/12/18 04:00 Pulse 87 09/12/18 06:45 Resp 32 H 09/12/18 06:45 BP 126/60 09/12/18 06:45 Pulse Ox 94 L 09/12/18 06:45 Intake & Output 09/11/18 09/11/18 09/12/18 06:59 18:59 06:59 Intake Total 2171.819 2182.445 2264.555 Output Total 655 1405 1235 Balance 1516.819 632.885 6450.555 Weight 152.3 kg Intake: IV 936 933 936 0.9 900 900 75 Pressure bag 36 33 36 Sodium Chloride 0.9% 1, 825 000 ml @ 75 mls/hr IV . [id number] GIOVANNY Rx#:[id number] Intake, IV Titration 898.819 678.445 794.555 Amount Amiodarone 450 mg In 425.32 Dextrose 5% in Water 250 ml @ 1 MG/MIN 34.53 mls/ hr IV .Q7H31M GIOVANNY Rx#: [id number] Heparin Sod,Pork in 0.45% 0 407.308 NaCl 25,000 unit In 0.45 % NaCl 1 500ml.bag @ 14.9 UNITS/KG/HR 45.95 mls/hr IV .[id number] GIOVANNY Rx#: [id number] Norepinephrine 16 mg In 152.928 121.822 94.505 Sodium Chloride 0.9% 250 ml @ Titrate IV .Q0M GIOVANNY Rx#:[id number] Propofol 1,000 mg In 320.571 556.623 292.742 Empty Bag 1 bag @ Titrate IV .Q0M GIOVANNY Rx#: [id number] Oral 0 Tube Feeding 307 481 444 Other 30 90 90 Output: Urine 655 1405 1235 Other: Voiding Method Indwelling Catheter Indwelling Catheter Indwelling Catheter # Voids 1 1 ABP, PAP, CO, CI - Last Documented Arterial Blood Pressure 138/53 - Constitutional General appearance: Present: no acute distress - Respiratory Respiratory: bilateral: diminished - Cardiovascular Rhythm: regular Heart sounds: normal: S1, S2 - Labs CBC & Chem 7: 09/12/18 04:36 09/12/18 04:36 Labs: Abnormal Lab Results - Last 24 Hours (Table) 09/11/18 09/11/18 09/11/18 Range/Units 11:52 14:06 17:59 WBC (3.8-10.6) k/uL RBC 2.99 L (4.30-5.90) m/uL Hgb 9.6 L (13.0-17.5) gm/dL Hct 27.8 L (39.0-53.0) % Neutrophils # (1.3-7.7) k/uL APTT (22.0-30.0) sec Sodium (137-145) mmol/L Creatinine (0.66-1.25) mg/dL Glucose (74-99) mg/dL POC Glucose (mg/dL) 123 H 106 H (75-99) mg/dL Calcium (8.4-10.2) mg/dL Magnesium (1.6-2.3) mg/dL AST (17-59) U/L ALT (21-72) U/L Total Protein (6.3-8.2) g/dL Albumin (3.5-5.0) g/dL 09/11/18 09/11/18 09/11/18 Range/Units 22:07 22:07 23:57 WBC 12.1 H (3.8-10.6) k/uL RBC 2.93 L (4.30-5.90) m/uL Hgb 9.5 L (13.0-17.5) gm/dL Hct 27.8 L (39.0-53.0) % Neutrophils # (1.3-7.7) k/uL APTT 32.2 H (22.0-30.0) sec Sodium (137-145) mmol/L Creatinine (0.66-1.25) mg/dL Glucose (74-99) mg/dL POC Glucose (mg/dL) 158 H (75-99) mg/dL Calcium (8.4-10.2) mg/dL Magnesium (1.6-2.3) mg/dL AST (17-59) U/L ALT (21-72) U/L Total Protein (6.3-8.2) g/dL Albumin (3.5-5.0) g/dL 09/12/18 09/12/18 09/12/18 Range/Units 04:36 04:36 04:36 WBC 14.0 H (3.8-10.6) k/uL RBC 2.87 L (4.30-5.90) m/uL Hgb 9.4 L (13.0-17.5) gm/dL Hct 27.2 L (39.0-53.0) % Neutrophils # 11.6 H (1.3-7.7) k/uL APTT 49.1 H (22.0-30.0) sec Sodium 136 L (137-145) mmol/L Creatinine 1.68 H (0.66-1.25) mg/dL Glucose 136 H (74-99) mg/dL POC Glucose (mg/dL) (75-99) mg/dL Calcium 7.9 L (8.4-10.2) mg/dL Magnesium 2.4 H (1.6-2.3) mg/dL AST 87 H (17-59) U/L ALT 187 H (21-72) U/L Total Protein 5.1 L (6.3-8.2) g/dL Albumin 2.5 L (3.5-5.0) g/dL Assessment and Plan Assessment: Assessment Massive PE History of DVT PE in the past Morbid obesity Status post cardiopulmonary arrest Plan Continue amiodarone Continue monitor the hemoglobin Try to wean him from the Levothroid The prognosis is very poor. Follow-up with the patient
[2018-09-12 06:57] LABS: ABG Base Excess -0.4 mmol/L; ABG HCO3 25 mmol/L (21-25); ABG Oxygen Saturation 89.8 % (94-97); ABG PCO2 43 mmHg (35-45); ABG PH 7.37 (7.35-7.45); ABG TCO2 26 mmol/L (19-24)
[2018-09-12 06:59] LABS: ABG PO2 59 mmHg (83-108)
[2018-09-12] MEDS: CHLORHEXIDINE GLUCONATE 15 ML CUP MUCOUS MEM SCH ×2 (08:11→20:45)
[2018-09-12] MEDS: PANTOPRAZOLE 40 MG/10 ML VIAL IVP SCH (08:11)
[2018-09-12] MEDS: AMIODARONE 200 MG TAB PO SCH ×2 (08:12→20:45)
[2018-09-12] MEDS: MULTIVITAMINS, THERA 1 EACH TAB PO SCH (08:12)
--- NOTE | 2018-09-12 10:18 | P.PN ---
Subjective Progress Note Date: 09/12/18 Principal diagnosis: Respiratory failure, massive bilateral pulmonary embolism Progress note dated 09/10/2018 52-year-old male who presented to the emergency department with massive bilateral pulmonary embolism, right ventricular enlargement and right heart strain. The patient was started on IV heparin and admitted to the general medical floor. The patient subsequently had a cardiac arrest and was transferred to the intensive care unit we had a prolonged cardiopulmonary arrest with prolonged cardiopulmonary resuscitation and eventual return of spontaneous circulation. The patient was given systemic TPA by the ER physician at the bedside. Lines were placed yesterday by myself my nurse practitioner. The patient remains on IV heparin. The patient's overall situation is poor. In addition to prolonged resuscitation, the patient had the massive bilateral pulmonary embolism. We attempted to see whether or not our interventional colleagues would be willing to do EKOS on this patient but his instability in the fact that he receive systemic TPA precluded that. He in addition has a previous history of DVT and pulmonary most him was treated with blood thinners for 6 months he has an acute DVT of the right lower extremity on this admission morbid obesity previous history of tobacco use and sedentary lifestyle anxiety and previous cholecystectomy and hernia repair. His overall prognosis at this point is poor. He remains on the mechanical ventilator on the volume assist control mode with a rate of 32 tidal volume 500 FiO2 40% PEEP of 5. Arterial blood gases on the same settings except 60% show a PaO2 of 222 PaCO2 of 36 and a pH of 7.45. He is on propofol at 45 mics per kilogram per minute, norepinephrine at 20 mics per minute heparin via weightbase protocol a saline IV at 75 mL an hour and amiodarone at 1 mg/m. In addition, yesterday should change, the patient apparently had an episode of supraventricular tachycardia cardioversion was attempted an adenosine was given. More recently, at 07 10 this morning, again with an episode of SVT, adenosine was given which seemed to help in the cardiology started the patient on amiodarone. Chest x- ray is consistent with fluid overload. Again prognosis is poor this point. We will attempt to talk to the family sometime today. Progress note dated 09/11/2018 52-year-old gentleman with a history of massive bilateral pulmonary embolism right ventricular enlargement and right heart strain. The patient's hospital course has been very abdulaziz at best. He did receive systemic TPA and was on IV heparin until yesterday which time was turned off because of ongoing bleeding. The patient's overall prognosis remains very guarded. The patient remains on the volume assist control mode rate of 32, tidal volume of 500, FiO2 40% and a PEEP of 5. Arterial blood gases show a PaO2 of 113 PaCO2 38 and a pH of 7.4. The patient is on saline at 75 mL an hour, propofol 65 mics per kilogram per minute, no epinephrine at 22 mcg/m, amiodarone 0.5 mg/m and vital AF at 37 with a goal of 37 mL an hour. Heparin was discontinued yesterday because of ongoing bleeding from the cavity and NG tube. In addition, he's had about a 1 g hemoglobin drop on a daily basis. This morning's hemoglobin is 9.9. I did have a chance to speak in detail yesterday to the daughter. The patient is currently unmarried. There are not many family members. The patient does have a previous history of DVT and pulmonary most him and apparently was treated for some period of time with blood thinners. Progress note dated 09/12/2018. 52-year-old gentleman with a history of massive bilateral pulmonary embolism, right ventricular enlargement and right heart strain. The patient's hospital course has been very abdulaziz. He did have prolonged episode of cardiopulmonary resuscitation. She did receive systemic TPA and was on IV heparin which had to be stopped yesterday and then resumed last night again. This is because of ongoing bleeding and dropping hemoglobin. The patient's overall prognosis remains very guarded. The patient was given a daily interruption of sedation today but could not have a spontaneous breathing trial because he became very tachypnea with respiratory rates above 40. Currently, he is on the volume assist control mode rate of 32, tidal volume 500, FiO2 35% to be increased to 40 % and 5 of PEEP. Arterial blood gases showed a PaO2 of 59 a PaCO2 of 43 and a pH 7.37. That was on 35% FiO2. In addition, the patient's on norepinephrine at 7 mics per minute, propofol at 65 mcg/kg/m, saline IV at 75 mL an hour, heparin via weightbase protocol and vital 1.2 at goal. Chest x-ray shows bilateral effusions with basilar atelectasis and/or infiltrates. I had asked the respiratory therapist put the patient on PSV 8 CPAP of 5 after he was fully awake but we never got. Given his profound tachypnea off of sedation. I talked to his daughter extensively 2 days ago. She was not here yesterday when I was here. Objective - Vital Signs Vital signs: Vital Signs Temp 98.8 F 09/12/18 08:00 Pulse 88 09/12/18 09:00 Resp 32 H 09/12/18 09:00 BP 126/60 09/12/18 09:00 Pulse Ox 96 09/12/18 09:00 Intake & Output 09/11/18 09/12/18 09/12/18 18:59 06:59 18:59 Intake Total 2182.445 2479.555 287.792 Output Total 1405 1295 600 Balance 747.562 4752.555 -312.208 Weight 152.3 kg 158.3 kg Intake: IV 933 1014 156 0.9 900 75 Pressure bag 33 39 6 Sodium Chloride 0.9% 1, 900 150 000 ml @ 75 mls/hr IV . [id number] [facility] Rx#:[id number] Intake, IV Titration 678.445 894.555 20.792 Amount Heparin Sod,Pork in 0.45% 0 407.308 NaCl 25,000 unit In 0.45 % NaCl 1 500ml.bag @ 14.9 UNITS/KG/HR 45.95 mls/hr IV .[id number] [facility] Rx#: [id number] Norepinephrine 16 mg In 121.822 94.505 20.792 Sodium Chloride 0.9% 250 ml @ Titrate IV .Q0M [facility] Rx#:[id number] Propofol 1,000 mg In 556.623 392.742 Empty Bag 1 bag @ Titrate IV .Q0M [facility] Rx#: [id number] Oral 0 Tube Feeding 481 481 111 Other 90 90 Output: Urine 1405 1295 600 Other: Voiding Method Indwelling Catheter Indwelling Catheter Indwelling Catheter # Voids 1 1 ABP, PAP, CO, CI - Last Documented Arterial Blood Pressure 103/51 - Exam No acute distress, sedated, orally placed endotracheal tube and NG tube. No or minimal blood noted in the NG tube and certainly no bleeding from the mouth at this time. HEENT examination is grossly unremarkable. Mucous membranes are moist. Neck supple. Full range of motion. No adenopathy thyromegaly or neck vein distention. Cardiovascular examination reveals regular rhythm rate. S1-S2 normal. No S3 or S4. No discernible murmur noted. Heart sounds are distant. Heart rate is100. Lungs reveal coarse bilateral breath sounds. Some crackles noted bilaterally. Diffuse rhonchi are appreciated. No wheezes. Breath sounds are diminished throughout. Breath sounds are equal bilaterally. Abdomen is obese. Bowel sounds are noted. No masses appreciated. Extremities. There is some chronic venous stasis changes. There is some pitting. Some mild livedo reticularis. Skin is reveal some chronic venous stasis changes. Neurologic examination could not be adequately assessed as the patient is currently sedated. - Labs CBC & Chem 7: 09/12/18 04:36 09/12/18 04:36 Labs: Abnormal Lab Results - Last 24 Hours (Table) 09/11/18 09/11/18 09/11/18 Range/Units 11:52 14:06 17:59 WBC (3.8-10.6) k/uL RBC 2.99 L (4.30-5.90) m/uL Hgb 9.6 L (13.0-17.5) gm/dL Hct 27.8 L (39.0-53.0) % Neutrophils # (1.3-7.7) k/uL APTT (22.0-30.0) sec ABG pO2 (83-108) mmHg ABG Total CO2 (19-24) mmol/L ABG O2 Saturation (94-97) % Sodium (137-145) mmol/L Creatinine (0.66-1.25) mg/dL Glucose (74-99) mg/dL POC Glucose (mg/dL) 123 H 106 H (75-99) mg/dL Calcium (8.4-10.2) mg/dL Magnesium (1.6-2.3) mg/dL AST (17-59) U/L ALT (21-72) U/L Total Protein (6.3-8.2) g/dL Albumin (3.5-5.0) g/dL 09/11/18 09/11/18 09/11/18 Range/Units 22:07 22:07 23:57 WBC 12.1 H (3.8-10.6) k/uL RBC 2.93 L (4.30-5.90) m/uL Hgb 9.5 L (13.0-17.5) gm/dL Hct 27.8 L (39.0-53.0) % Neutrophils # (1.3-7.7) k/uL APTT 32.2 H (22.0-30.0) sec ABG pO2 (83-108) mmHg ABG Total CO2 (19-24) mmol/L ABG O2 Saturation (94-97) % Sodium (137-145) mmol/L Creatinine (0.66-1.25) mg/dL Glucose (74-99) mg/dL POC Glucose (mg/dL) 158 H (75-99) mg/dL Calcium (8.4-10.2) mg/dL Magnesium (1.6-2.3) mg/dL AST (17-59) U/L ALT (21-72) U/L Total Protein (6.3-8.2) g/dL Albumin (3.5-5.0) g/dL 09/12/18 09/12/18 09/12/18 Range/Units 04:36 04:36 04:36 WBC 14.0 H (3.8-10.6) k/uL RBC 2.87 L (4.30-5.90) m/uL Hgb 9.4 L (13.0-17.5) gm/dL Hct 27.2 L (39.0-53.0) % Neutrophils # 11.6 H (1.3-7.7) k/uL APTT 49.1 H (22.0-30.0) sec ABG pO2 (83-108) mmHg ABG Total CO2 (19-24) mmol/L ABG O2 Saturation (94-97) % Sodium 136 L (137-145) mmol/L Creatinine 1.68 H (0.66-1.25) mg/dL Glucose 136 H (74-99) mg/dL POC Glucose (mg/dL) (75-99) mg/dL Calcium 7.9 L (8.4-10.2) mg/dL Magnesium 2.4 H (1.6-2.3) mg/dL AST 87 H (17-59) U/L ALT 187 H (21-72) U/L Total Protein 5.1 L (6.3-8.2) g/dL Albumin 2.5 L (3.5-5.0) g/dL 09/12/18 09/12/18 Range/Units 06:50 06:55 WBC (3.8-10.6) k/uL RBC (4.30-5.90) m/uL Hgb (13.0-17.5) gm/dL Hct (39.0-53.0) % Neutrophils # (1.3-7.7) k/uL APTT (22.0-30.0) sec ABG pO2 59 L* (83-108) mmHg ABG Total CO2 26 H (19-24) mmol/L ABG O2 Saturation 89.8 L (94-97) % Sodium (137-145) mmol/L Creatinine (0.66-1.25) mg/dL Glucose (74-99) mg/dL POC Glucose (mg/dL) 128 H (75-99) mg/dL Calcium (8.4-10.2) mg/dL Magnesium (1.6-2.3) mg/dL AST (17-59) U/L ALT (21-72) U/L Total Protein (6.3-8.2) g/dL Albumin (3.5-5.0) g/dL Microbiology - Last 24 Hours (Table) 09/09/18 23:19 Gram Stain - Final Sputum Sputum Culture - Final Assessment and Plan Assessment: Assessment Acute hypoxemic respiratory failure, requiring intubation and mechanical ventilation, secondary to bilateral massive pulmonary embolism. Massive pulmonary embolism with evidence of right heart strain and acute dilatation of the right ventricle subsequent cardiopulmonary arrest prolonged cardiopulmonary resuscitation and eventual return of spontaneous circulation, patient intubated on September 09 during the resuscitation. Prolonged cardiopulmonary arrest with prolonged cardiopulmonary resuscitation but with eventual return of spontaneous ventilation, rule out anoxic brain injury Previous history of DVT and pulmonary embolism, treated with 6 months of warfarin Ongoing GI bleed, requiring me to stop the IV heparin at this time. Acute DVT, right lower extremity Systemic administration of TPA on this admission Morbid obesity. Previous history of tobacco use History of anxiety Status post cholecystectomy and hernia repair Plan: Plan dated 09/09/2018 After a prolonged resuscitation and difficult intubation, the patient was eventually transferred back up to the ICU. The patient will be placed on the mechanical ventilator with settings of tidal volume 500, 100%, PEEP of 5, and rate of 24 breaths per minute. We'll place him on the volume assist control mode. We'll see if we can't place lines in the patient. The right groin line is probably a dirty line. He did receive systemic TPA. White count is 12.6, hemoglobin 15.4, hematocrit 48.3 and platelet count 279,000. PTT was 46.6. Sodium 139 potassium 4.6 chloride 109 CO2 22 BUN and creatinine were 12 and 0.99. Troponin was 0.258. Chest x-ray, labs, medications, computed tomography scan, and Doppler of lower extremity are reviewed. Medications are reviewed. Prognosis is guarded. Critical care time 40 minutes Plan dated 09/10/2018 Currently, the patient is on the assist control mode. Blood gases have been evaluated. FiO2 dropped from 60 down to 40%. The patient remains on propofol, norepinephrine, IV heparin, and IV amiodarone. His overall prognosis remains very poor. White count is 15 hemoglobin 12.7 hematocrit 38.8 and platelet count 288,000. PT 13.3 INR 1.4 and PTT 87.1. Sodium and potassium are normal. Chloride 108 CO2 25 BUN and creatinine were 21 and 1.76. AST was 559 8 hours T was 506 and albumin was 2.6. Microbiologic studies remain negative. Chest x- ray labs and medications are all reviewed. Additional recommendations and suggestions are forthcoming. Medications will be reviewed. Critical care time 38 minutes Plan Dated 09/11/2018 White Count Is 12.9, Hemoglobin down to 9.9, Hematocrit 30.2 and Platelet Count 236,000. Arterial Blood Gases Show a PaO2 of 113 a PaCO2 of 38 and a pH of 7.44. The FiO2 Can Be Dropped down to 35%. Sodium Is 136, Potassium 3.5, Chloride 107 and CO2 Is 26 BUN/creatinine Were 16 and 1.77 Respectively. Thus Far, Microbiologic Studies Are Negative. Chest X-Ray Shows Bilateral Pleural Effusions, Cardiomegaly, and Some Basilar Atelectasis or Infiltrate. Labs Medications and X-Rays Are All Reviewed. Prognosis Remains Very Guarded. I Did Have a Chance to Speak in Detail to the Daughter Yesterday. She Understands the [place] of the Situation. We Will Continue to Follow. Critical Care time is 33 minutes Plan dated 09/12/2018 We did try a daily interruption of sedation but when the sedation was turned off , the patient became very tachypnea and dyspneic. His respiratory rates were more than 45 rest permitted. Hence, a spontaneous breathing trial was not attempted. Chest x-ray is evaluated. Microbiologic studies are negative thus far. White count is 14, hemoglobin 9.4, hematocrit 27.2 and platelet count 197, 000. PT was 10.6 INR 1.1 and PTT 49.1. Sodium was 136 potassium 4.1 chloride 107 CO2 23 BUN 15 creatinine 1.68. Labs, x-rays and medications are all reviewed. Prognosis remains poor. The patient's IV amiodarone has been converted to oral amiodarone at 400 mg twice a day. The FiO2 was increased from 35 to 40% given the borderline PaO2. Critical care time 35 minutes Time with Patient: Greater than 30
[2018-09-12 11:55] LABS: HCT 26.1 % (39.0-53.0); HGB 8.6 gm/dL (13.0-17.5); MCH 31.1 pg (25.0-35.0); MCHC 32.9 g/dL (31.0-37.0); MCV 94.5 fL (80.0-100.0); Mean Platelet Volume 7.8; Platelet Count 170 k/uL (150-450); RBC 2.76 m/uL (4.30-5.90); RDW 13.8 % (11.5-15.5); WBC 11.5 k/uL (3.8-10.6)
[2018-09-12 12:13] LABS: Glucose,Whole Blood 131 mg/dL (75-99)
[2018-09-12] MEDS: NOREPINEPHRINE 16 MG in SODIUM CHLORIDE 0.9% 250 ML IV SCH (13:02)
--- NOTE | 2018-09-12 14:34 | P.PN ---
Subjective Progress Note Date: 09/12/18 Principal diagnosis: Massive pulmonary embolism Acute cardiopulmonary arrest status post CPR and intubation 09/11/2018 52-year-old gentleman with a history of massive bilateral pulmonary embolism right ventricular enlargement and right heart strain. He did receive systemic TPA and was on IV heparin until yesterday which time was turned off because of ongoing bleeding. The patient's overall prognosis remains very guarded. The patient remains on ventilator. Arterial blood gases show a PaO2 of 113 PaCO2 38 and a pH of 7.4. The patient is on saline at 75 mL an hour; Heparin was discontinued yesterday because of ongoing bleeding from the cavity and NG tube. In addition, he's had about a 1 g hemoglobin drop on a daily basis. This morning's hemoglobin is 9.9. 09/12/2018; The patient's overall prognosis remains very guarded. The patient was given a daily interruption of sedation today but could not have a spontaneous breathing trial because he became very tachypnea with respiratory rates above 40. Currently, he is on the volume assist control mode rate of 32, tidal volume 500 , FiO2 35% to be increased to 40% and 5 of PEEP. Arterial blood gases showed a PaO2 of 59 a PaCO2 of 43 and a pH 7.37. That was on 35% FiO2. In addition, the patient's on norepinephrine at 7 mics per minute, propofol at 65 mcg/kg/m, saline IV at 75 mL an hour, heparin via weightbase protocol and vital 1.2 at goal. Chest x-ray shows bilateral effusions with basilar atelectasis and/or infiltrates. Objective - Vital Signs Vital signs: Vital Signs Temp 99.5 F 09/12/18 12:00 Pulse 77 09/12/18 12:00 Resp 32 H 09/12/18 12:00 BP 126/60 09/12/18 12:00 Pulse Ox 93 L 09/12/18 12:00 Intake & Output 09/11/18 09/12/18 09/12/18 18:59 06:59 18:59 Intake Total 2182.445 2479.555 1035.231 Output Total 1405 1295 1250 Balance 656.984 5838.555 -214.769 Weight 152.3 kg 158.3 kg Intake: IV 933 1014 468 0.9 900 75 Pressure bag 33 39 18 Sodium Chloride 0.9% 1, 900 450 000 ml @ 75 mls/hr IV . [id number] [facility] Rx#:[id number] Intake, IV Titration 678.445 894.555 271.231 Amount Heparin Sod,Pork in 0.45% 0 407.308 NaCl 25,000 unit In 0.45 % NaCl 1 500ml.bag @ 14.9 UNITS/KG/HR 45.95 mls/hr IV .[id number] [facility] Rx#: [id number] Norepinephrine 16 mg In 121.822 94.505 71.231 Sodium Chloride 0.9% 250 ml @ Titrate IV .Q0M [facility] Rx#:[id number] Propofol 1,000 mg In 556.623 392.742 200 Empty Bag 1 bag @ Titrate IV .Q0M [facility] Rx#: [id number] Oral 0 Tube Feeding 481 481 296 Other 90 90 Output: Urine 1405 1295 1250 Other: Voiding Method Indwelling Catheter Indwelling Catheter Indwelling Catheter # Voids 1 1 ABP, PAP, CO, CI - Last Documented Arterial Blood Pressure 102/46 - Exam No acute distress, sedated, orally placed endotracheal tube and NG tube. There is blood coming from the mouth and dried blood in the NG tube. HEENT examination is grossly unremarkable. Mucous membranes are moist. Neck supple. Full range of motion. No adenopathy thyromegaly or neck vein distention. Cardiovascular examination reveals regular rhythm rate. S1-S2 normal. No S3 or S4. No discernible murmur noted. Heart sounds are distant. Heart rate is100. Lungs reveal coarse bilateral breath sounds. Some crackles noted bilaterally. Diffuse rhonchi are appreciated. No wheezes. Breath sounds are diminished throughout. Breath sounds are equal bilaterally. Abdomen is obese. Bowel sounds are noted. No masses appreciated. Extremities. There is some chronic venous stasis changes. There is some pitting. Some mild livedo reticularis. Skin is reveal some chronic venous stasis changes. Neurologic examination could not be adequately assessed as the patient is currently sedated. - Labs CBC & Chem 7: 09/12/18 11:40 09/12/18 04:36 Labs: Abnormal Lab Results - Last 24 Hours (Table) 09/11/18 09/11/18 09/11/18 Range/Units 17:59 22:07 22:07 WBC 12.1 H (3.8-10.6) k/uL RBC 2.93 L (4.30-5.90) m/uL Hgb 9.5 L (13.0-17.5) gm/dL Hct 27.8 L (39.0-53.0) % Neutrophils # (1.3-7.7) k/uL APTT 32.2 H (22.0-30.0) sec ABG pO2 (83-108) mmHg ABG Total CO2 (19-24) mmol/L ABG O2 Saturation (94-97) % Sodium (137-145) mmol/L Creatinine (0.66-1.25) mg/dL Glucose (74-99) mg/dL POC Glucose (mg/dL) 106 H (75-99) mg/dL Calcium (8.4-10.2) mg/dL Magnesium (1.6-2.3) mg/dL AST (17-59) U/L ALT (21-72) U/L Total Protein (6.3-8.2) g/dL Albumin (3.5-5.0) g/dL 09/11/18 09/12/18 09/12/18 Range/Units 23:57 04:36 04:36 WBC 14.0 H (3.8-10.6) k/uL RBC 2.87 L (4.30-5.90) m/uL Hgb 9.4 L (13.0-17.5) gm/dL Hct 27.2 L (39.0-53.0) % Neutrophils # 11.6 H (1.3-7.7) k/uL APTT (22.0-30.0) sec ABG pO2 (83-108) mmHg ABG Total CO2 (19-24) mmol/L ABG O2 Saturation (94-97) % Sodium 136 L (137-145) mmol/L Creatinine 1.68 H (0.66-1.25) mg/dL Glucose 136 H (74-99) mg/dL POC Glucose (mg/dL) 158 H (75-99) mg/dL Calcium 7.9 L (8.4-10.2) mg/dL Magnesium 2.4 H (1.6-2.3) mg/dL AST 87 H (17-59) U/L ALT 187 H (21-72) U/L Total Protein 5.1 L (6.3-8.2) g/dL Albumin 2.5 L (3.5-5.0) g/dL 09/12/18 09/12/18 09/12/18 Range/Units 04:36 06:50 06:55 WBC (3.8-10.6) k/uL RBC (4.30-5.90) m/uL Hgb (13.0-17.5) gm/dL Hct (39.0-53.0) % Neutrophils # (1.3-7.7) k/uL APTT 49.1 H (22.0-30.0) sec ABG pO2 59 L* (83-108) mmHg ABG Total CO2 26 H (19-24) mmol/L ABG O2 Saturation 89.8 L (94-97) % Sodium (137-145) mmol/L Creatinine (0.66-1.25) mg/dL Glucose (74-99) mg/dL POC Glucose (mg/dL) 128 H (75-99) mg/dL Calcium (8.4-10.2) mg/dL Magnesium (1.6-2.3) mg/dL AST (17-59) U/L ALT (21-72) U/L Total Protein (6.3-8.2) g/dL Albumin (3.5-5.0) g/dL 09/12/18 09/12/18 Range/Units 11:40 12:11 WBC 11.5 H (3.8-10.6) k/uL RBC 2.76 L (4.30-5.90) m/uL Hgb 8.6 L (13.0-17.5) gm/dL Hct 26.1 L (39.0-53.0) % Neutrophils # (1.3-7.7) k/uL APTT (22.0-30.0) sec ABG pO2 (83-108) mmHg ABG Total CO2 (19-24) mmol/L ABG O2 Saturation (94-97) % Sodium (137-145) mmol/L Creatinine (0.66-1.25) mg/dL Glucose (74-99) mg/dL POC Glucose (mg/dL) 131 H (75-99) mg/dL Calcium (8.4-10.2) mg/dL Magnesium (1.6-2.3) mg/dL AST (17-59) U/L ALT (21-72) U/L Total Protein (6.3-8.2) g/dL Albumin (3.5-5.0) g/dL Microbiology - Last 24 Hours (Table) 09/12/18 01:35 Urine Culture - Preliminary Urine,Catheterized 09/12/18 01:15 Sputum Culture - Preliminary Sputum 09/09/18 23:19 Gram Stain - Final Sputum Sputum Culture - Final Assessment and Plan Assessment: Massive pulmonary embolism with evidence of right heart strain and acute dilatation of the right ventricle subsequent cardiopulmonary arrest prolonged cardiopulmonary resuscitation and eventual return of spontaneous circulation, patient intubated on September 09 during the resuscitation. Patient remains in ICU at this time on mechanical ventilation; - Patient didn't receive TPA; current concern is drop hemoglobin Prolonged cardiopulmonary arrest with prolonged cardiopulmonary resuscitation but with eventual return of spontaneous ventilation, rule out anoxic brain injury Previous history of DVT and pulmonary embolism, treated with 6 months of warfarin Ongoing GI bleed, requiring me to stop the IV heparin at this time. Acute DVT, right lower extremity Systemic administration of TPA on this admission Morbid obesity. Previous history of tobacco use History of anxiety Status post cholecystectomy and hernia repair Time with Patient: Greater than 30
[2018-09-12 17:43] LABS: HCT 26.7 % (39.0-53.0); HGB 8.8 gm/dL (13.0-17.5); MCH 31.2 pg (25.0-35.0); MCHC 32.9 g/dL (31.0-37.0); MCV 95.1 fL (80.0-100.0); Mean Platelet Volume 7.9; Platelet Count 201 k/uL (150-450); RBC 2.81 m/uL (4.30-5.90); RDW 13.9 % (11.5-15.5); WBC 11.3 k/uL (3.8-10.6)
[2018-09-12 17:49] LABS: Glucose,Whole Blood 128 mg/dL (75-99)
[2018-09-13] MEDS: HEPARIN SOD,PORK IN 0.45% NACL 25,000 UNIT in 0.45% NACL 1 500ML.BAG IV SCH ×3 (00:22→22:10)
[2018-09-13] MEDS: PROPOFOL 1,000 MG in EMPTY BAG 1 BAG IV SCH ×10 (00:25→22:27)
[2018-09-13] MEDS: INSULIN ASPART 100 UNIT/ML 1 ML 10 ML VIAL SQ SCH ×4 (00:26→18:34)
[2018-09-13 00:27] LABS: Glucose,Whole Blood 130 mg/dL (75-99)
[2018-09-13] MEDS: IPRATROPIUM-ALBUTEROL 3 ML NEB INHALATION SCH ×6 (03:32→23:39)
[2018-09-13 04:32] LABS: Basophils % (A) 1 %; Eosinophils # (A) 0.1 k/uL (0-0.7); Eosinophils % (A) 1 %; HCT 25.5 % (39.0-53.0); HGB 8.2 gm/dL (13.0-17.5); Lymphocytes # (A) 1.1 k/uL (1.0-4.8); Lymphocytes % (A) 12 %; MCHC 32.2 g/dL (31.0-37.0); MCV 96.3 fL (80.0-100.0); Mean Platelet Volume 7.3; Monocytes # (A) 0.5 k/uL (0-1.0); Monocytes % (A) 5 %; Neutrophils % (A) 79 %; Platelet Count 218 k/uL (150-450); RBC 2.65 m/uL (4.30-5.90); WBC 8.9 k/uL (3.8-10.6)
[2018-09-13 04:52] LABS: INR 1.1 (<1.2); Partial Thromboplastin Time 63.7 sec (22.0-30.0); Prothrombin Time 10.3 sec (9.0-12.0)
[2018-09-13 05:10] LABS: ABG Base Excess -0.7 mmol/L; ABG HCO3 25 mmol/L (21-25); ABG PCO2 44 mmHg (35-45); ABG PH 7.36 (7.35-7.45); ABG PO2 74 mmHg (83-108); ABG TCO2 26 mmol/L (19-24)
[2018-09-13 05:21] LABS: Albumin 2.5 g/dL (3.5-5.0); Calcium 8.1 mg/dL (8.4-10.2); Magnesium 2.4 mg/dL (1.6-2.3); Total Bilirubin 0.8 mg/dL (0.2-1.3); Total Protein 5.3 g/dL (6.3-8.2)
[2018-09-13 06:14] LABS: Glucose,Whole Blood 144 mg/dL (75-99)
--- NOTE | 2018-09-13 06:39 | XR ---
EXAMINATION TYPE: XR chest 1V portable DATE OF EXAM: 09/13/2018 HISTORY: Tube placement. REFERENCE: Previous study dated 09/12/2018. FINDINGS: The patient's ET tube and NG tube remain in place, unchanged in appearance. There is a left subclavian catheter in place. Its tip is at the cavoatrial junction. There is worsening vascular congestion and pulmonary edema. There is confluent bibasilar airspace dis ease which may represent confluent edema or pneumonia. There are bilateral effusions. IMPRESSION: WORSENING CHANGES OF CONGESTIVE HEART FAILURE.
--- NOTE | 2018-09-13 07:26 | P.PN ---
Subjective Progress Note Date: 09/13/18 Principal diagnosis: Pulmonary embolization This is a pleasant 52-year-old gentleman with a past medical history significant for DVT and PE was admitted to the hospital with shortness of breath and was diagnosed with PE. The patient coded twice. He received CPR twice as well. Currently he is in normal sinus mechanism. I'll follow-up with the patient today, 09/13/2018, he remains intubated. He felt weaning yesterday. He remains hemodynamically unstable and requiring vasopressors with a small dose of Levophed. He continues to be on heparin IV. No more episode of SVT and he is maintaining normal sinus rhythm on the amiodarone by mouth. The chest x-ray from today was reviewed and showed finding consistent with congestive heart failure. He does have severe bilateral lower extremities edema on examination. I recommend giving the patient some Lasix today and continue following up with a chest x-ray tomorrow morning. The hemoglobin continues to be stable and around 8. He does have some blood in the stool. Objective - Vital Signs Vital signs: Vital Signs Temp 99.9 F H 09/13/18 04:00 Pulse 94 09/13/18 07:14 Resp 32 H 09/13/18 06:00 BP 122/55 09/13/18 01:00 Pulse Ox 95 09/13/18 06:00 Intake & Output 09/12/18 09/13/18 09/13/18 18:59 06:59 18:59 Intake Total 2199.231 1785.819 Output Total 2150 1115 Balance 49.231 670.819 Intake: IV 858 936 Pressure bag 33 36 Sodium Chloride 0.9% 1, 825 900 000 ml @ 75 mls/hr IV . [id number] [facility] Rx#:[id number] Intake, IV Titration 971.231 389.819 Amount Heparin Sod,Pork in 0.45% 500 288.586 NaCl 25,000 unit In 0.45 % NaCl 1 500ml.bag @ 14.9 UNITS/KG/HR 45.95 mls/hr IV .[id number] [facility] Rx#: [id number] Norepinephrine 16 mg In 71.231 Sodium Chloride 0.9% 250 ml @ Titrate IV .Q0M [facility] Rx#:[id number] Propofol 1,000 mg In 400 101.233 Empty Bag 1 bag @ Titrate IV .Q0M [facility] Rx#: [id number] Tube Feeding 370 370 Other 90 Output: Urine 2150 1115 Other: Voiding Method Indwelling Catheter Indwelling Catheter ABP, PAP, CO, CI - Last Documented Arterial Blood Pressure 136/50 - Constitutional General appearance: Present: no acute distress - Respiratory Respiratory: bilateral: diminished - Cardiovascular Rhythm: regular Heart sounds: normal: S1, S2 - Labs CBC & Chem 7: 09/13/18 04:07 09/13/18 04:07 Labs: Abnormal Lab Results - Last 24 Hours (Table) 09/12/18 09/12/18 09/12/18 Range/Units 11:40 12:11 17:35 WBC 11.5 H 11.3 H (3.8-10.6) k/uL RBC 2.76 L 2.81 L (4.30-5.90) m/uL Hgb 8.6 L 8.8 L (13.0-17.5) gm/dL Hct 26.1 L 26.7 L (39.0-53.0) % APTT (22.0-30.0) sec ABG pO2 (83-108) mmHg ABG Total CO2 (19-24) mmol/L Chloride (98-107) mmol/L Carbon Dioxide (22-30) mmol/L Creatinine (0.66-1.25) mg/dL Glucose (74-99) mg/dL POC Glucose (mg/dL) 131 H (75-99) mg/dL Calcium (8.4-10.2) mg/dL Magnesium (1.6-2.3) mg/dL AST (17-59) U/L ALT (21-72) U/L Total Protein (6.3-8.2) g/dL Albumin (3.5-5.0) g/dL 09/12/18 09/13/18 09/13/18 Range/Units 17:48 00:24 04:07 WBC (3.8-10.6) k/uL RBC 2.65 L (4.30-5.90) m/uL Hgb 8.2 L (13.0-17.5) gm/dL Hct 25.5 L (39.0-53.0) % APTT (22.0-30.0) sec ABG pO2 (83-108) mmHg ABG Total CO2 (19-24) mmol/L Chloride (98-107) mmol/L Carbon Dioxide (22-30) mmol/L Creatinine (0.66-1.25) mg/dL Glucose (74-99) mg/dL POC Glucose (mg/dL) 128 H 130 H (75-99) mg/dL Calcium (8.4-10.2) mg/dL Magnesium (1.6-2.3) mg/dL AST (17-59) U/L ALT (21-72) U/L Total Protein (6.3-8.2) g/dL Albumin (3.5-5.0) g/dL 09/13/18 09/13/18 09/13/18 Range/Units 04:07 04:07 05:05 WBC (3.8-10.6) k/uL RBC (4.30-5.90) m/uL Hgb (13.0-17.5) gm/dL Hct (39.0-53.0) % APTT 63.7 H (22.0-30.0) sec ABG pO2 74 L (83-108) mmHg ABG Total CO2 26 H (19-24) mmol/L Chloride 111 H (98-107) mmol/L Carbon Dioxide 14 L (22-30) mmol/L Creatinine 1.76 H (0.66-1.25) mg/dL Glucose 144 H (74-99) mg/dL POC Glucose (mg/dL) (75-99) mg/dL Calcium 8.1 L (8.4-10.2) mg/dL Magnesium 2.4 H (1.6-2.3) mg/dL AST 93 H (17-59) U/L ALT 132 H (21-72) U/L Total Protein 5.3 L (6.3-8.2) g/dL Albumin 2.5 L (3.5-5.0) g/dL 09/13/18 Range/Units 06:12 WBC (3.8-10.6) k/uL RBC (4.30-5.90) m/uL Hgb (13.0-17.5) gm/dL Hct (39.0-53.0) % APTT (22.0-30.0) sec ABG pO2 (83-108) mmHg ABG Total CO2 (19-24) mmol/L Chloride (98-107) mmol/L Carbon Dioxide (22-30) mmol/L Creatinine (0.66-1.25) mg/dL Glucose (74-99) mg/dL POC Glucose (mg/dL) 144 H (75-99) mg/dL Calcium (8.4-10.2) mg/dL Magnesium (1.6-2.3) mg/dL AST (17-59) U/L ALT (21-72) U/L Total Protein (6.3-8.2) g/dL Albumin (3.5-5.0) g/dL Microbiology - Last 24 Hours (Table) 09/12/18 01:35 Blood Culture - Preliminary Blood No Growth after 24 hours 09/12/18 01:15 Gram Stain - Preliminary Sputum Sputum Culture - Preliminary 09/12/18 01:35 Urine Culture - Preliminary Urine,Catheterized 09/09/18 23:19 Gram Stain - Final Sputum Sputum Culture - Final Assessment and Plan Assessment: Assessment Massive PE History of DVT PE in the past Morbid obesity Status post cardiopulmonary arrest Plan Continue amiodarone by mouth Continue monitor the hemoglobin Try to wean him from the Levothroid The prognosis is very poor. Follow-up with the patient
[2018-09-13] MEDS ORDERED: FUROSEMIDE 10 MG/ML 4 ML VIAL IV STA (08:36)
--- NOTE | 2018-09-13 09:06 | P.PN ---
Subjective Progress Note Date: 09/13/18 Principal diagnosis: Respiratory failure, massive bilateral pulmonary embolism Progress note dated 09/10/2018 52-year-old male who presented to the emergency department with massive bilateral pulmonary embolism, right ventricular enlargement and right heart strain. The patient was started on IV heparin and admitted to the general medical floor. The patient subsequently had a cardiac arrest and was transferred to the intensive care unit we had a prolonged cardiopulmonary arrest with prolonged cardiopulmonary resuscitation and eventual return of spontaneous circulation. The patient was given systemic TPA by the ER physician at the bedside. Lines were placed yesterday by myself my nurse practitioner. The patient remains on IV heparin. The patient's overall situation is poor. In addition to prolonged resuscitation, the patient had the massive bilateral pulmonary embolism. We attempted to see whether or not our interventional colleagues would be willing to do EKOS on this patient but his instability in the fact that he receive systemic TPA precluded that. He in addition has a previous history of DVT and pulmonary most him was treated with blood thinners for 6 months he has an acute DVT of the right lower extremity on this admission morbid obesity previous history of tobacco use and sedentary lifestyle anxiety and previous cholecystectomy and hernia repair. His overall prognosis at this point is poor. He remains on the mechanical ventilator on the volume assist control mode with a rate of 32 tidal volume 500 FiO2 40% PEEP of 5. Arterial blood gases on the same settings except 60% show a PaO2 of 222 PaCO2 of 36 and a pH of 7.45. He is on propofol at 45 mics per kilogram per minute, norepinephrine at 20 mics per minute heparin via weightbase protocol a saline IV at 75 mL an hour and amiodarone at 1 mg/m. In addition, yesterday should change, the patient apparently had an episode of supraventricular tachycardia cardioversion was attempted an adenosine was given. More recently, at 07 10 this morning, again with an episode of SVT, adenosine was given which seemed to help in the cardiology started the patient on amiodarone. Chest x- ray is consistent with fluid overload. Again prognosis is poor this point. We will attempt to talk to the family sometime today. Progress note dated 09/11/2018 52-year-old gentleman with a history of massive bilateral pulmonary embolism right ventricular enlargement and right heart strain. The patient's hospital course has been very abdulaziz at best. He did receive systemic TPA and was on IV heparin until yesterday which time was turned off because of ongoing bleeding. The patient's overall prognosis remains very guarded. The patient remains on the volume assist control mode rate of 32, tidal volume of 500, FiO2 40% and a PEEP of 5. Arterial blood gases show a PaO2 of 113 PaCO2 38 and a pH of 7.4. The patient is on saline at 75 mL an hour, propofol 65 mics per kilogram per minute, no epinephrine at 22 mcg/m, amiodarone 0.5 mg/m and vital AF at 37 with a goal of 37 mL an hour. Heparin was discontinued yesterday because of ongoing bleeding from the cavity and NG tube. In addition, he's had about a 1 g hemoglobin drop on a daily basis. This morning's hemoglobin is 9.9. I did have a chance to speak in detail yesterday to the daughter. The patient is currently unmarried. There are not many family members. The patient does have a previous history of DVT and pulmonary most him and apparently was treated for some period of time with blood thinners. Progress note dated 09/12/2018. 52-year-old gentleman with a history of massive bilateral pulmonary embolism, right ventricular enlargement and right heart strain. The patient's hospital course has been very abdulaziz. He did have prolonged episode of cardiopulmonary resuscitation. She did receive systemic TPA and was on IV heparin which had to be stopped yesterday and then resumed last night again. This is because of ongoing bleeding and dropping hemoglobin. The patient's overall prognosis remains very guarded. The patient was given a daily interruption of sedation today but could not have a spontaneous breathing trial because he became very tachypnea with respiratory rates above 40. Currently, he is on the volume assist control mode rate of 32, tidal volume 500, FiO2 35% to be increased to 40 % and 5 of PEEP. Arterial blood gases showed a PaO2 of 59 a PaCO2 of 43 and a pH 7.37. That was on 35% FiO2. In addition, the patient's on norepinephrine at 7 mics per minute, propofol at 65 mcg/kg/m, saline IV at 75 mL an hour, heparin via weightbase protocol and vital 1.2 at goal. Chest x-ray shows bilateral effusions with basilar atelectasis and/or infiltrates. I had asked the respiratory therapist put the patient on PSV 8 CPAP of 5 after he was fully awake but we never got. Given his profound tachypnea off of sedation. I talked to his daughter extensively 2 days ago. She was not here yesterday when I was here. Progress note dated 09/13/2018 52-year-old male with a history of massive bilateral pulmonary embolism, right ventricular enlargement, and right heart strain. The patient's hospital course has been very abdulaziz beginning with initial admission to general medical floor on IV heparin only. The patient then had a cardiopulmonary arrest and had a prolonged period of cardiopulmonary resuscitation with eventual return of spontaneous circulation. A groin IV was placed by the ER physician and systemic TPA was given. At that point, though we tried to send the patient for EKOS, the systemic TPA in the patient's instability precluded that. Currently, the patient remains on the mechanical ventilator on the volume assist control mode rate of 32, tidal volume 500, FiO2 50% and PEEP of 5. Arterial blood gases show a PaO2 of 70 for a PaCO2 of 44 and a pH is 7.36. The patient remains on norepinephrine at 4 mcg/m, heparin via weightbase protocol, a saline IV at 75 mL an hour to be dropped down to 25 mL an hour and vital AF at 37 with a goal of 37 mL per hour. In addition, I've asked the nurses to neck movement of the ports of the triple-lumen catheter so that we can monitor central venous pressure. The patient is placed on some Ancef empirically at 1 g every 8 hours. The patient will also receive Lasix 40 mg IV push for chest x-ray which shows bilateral fluid overload. Microbiologic studies are currently all negative. Chest x-ray, labs and medications are all reviewed. This patient also has a previous history of DVT and pulmonary embolism. There also may be an occult hypercoagulable state yet to be detected. Objective - Vital Signs Vital signs: Vital Signs Temp 99.6 F 09/13/18 08:00 Pulse 98 09/13/18 08:30 Resp 32 H 09/13/18 08:30 BP 126/60 09/13/18 08:30 Pulse Ox 91 L 09/13/18 08:30 Intake & Output 09/12/18 09/13/18 09/13/18 18:59 06:59 18:59 Intake Total 2199.231 1900.819 152 Output Total 2150 1225 225 Balance 49.231 675.819 -73 Weight 160.3 kg 160.3 kg Intake: IV 858 1014 78 Pressure bag 33 39 3 Sodium Chloride 0.9% 1, 825 975 75 000 ml @ 75 mls/hr IV . [id number] [facility] Rx#:[id number] Intake, IV Titration 971.231 389.819 Amount Heparin Sod,Pork in 0.45% 500 288.586 NaCl 25,000 unit In 0.45 % NaCl 1 500ml.bag @ 14.9 UNITS/KG/HR 45.95 mls/hr IV .[id number] [facility] Rx#: [id number] Norepinephrine 16 mg In 71.231 Sodium Chloride 0.9% 250 ml @ Titrate IV .Q0M [facility] Rx#:[id number] Propofol 1,000 mg In 400 101.233 Empty Bag 1 bag @ Titrate IV .Q0M [facility] Rx#: [id number] Tube Feeding 370 407 74 Other 90 Output: Urine 2150 1225 225 Other: Voiding Method Indwelling Catheter Indwelling Catheter ABP, PAP, CO, CI - Last Documented Arterial Blood Pressure 127/52 - Exam No acute distress, sedated, orally placed endotracheal tube and NG tube. No or minimal blood noted in the NG tube and certainly no bleeding from the mouth at this time. HEENT examination is grossly unremarkable. Mucous membranes are moist. Neck supple. Full range of motion. No adenopathy thyromegaly or neck vein distention. Cardiovascular examination reveals regular rhythm rate. S1-S2 normal. No S3 or S4. No discernible murmur noted. Heart sounds are distant. Heart rate is100. Lungs reveal coarse bilateral breath sounds. Crackles are noted bilaterally in our bit worse today. Diffuse rhonchi are appreciated. No wheezes. Breath sounds are diminished throughout. Breath sounds are equal bilaterally. Abdomen is obese. Bowel sounds are noted. No masses appreciated. Extremities. There is some chronic venous stasis changes. There is some pitting. Some mild livedo reticularis. Skin is reveal some chronic venous stasis changes. Neurologic examination could not be adequately assessed as the patient is currently sedated. - Labs CBC & Chem 7: 09/13/18 04:07 09/13/18 04:07 Labs: Abnormal Lab Results - Last 24 Hours (Table) 09/12/18 09/12/18 09/12/18 Range/Units 11:40 12:11 17:35 WBC 11.5 H 11.3 H (3.8-10.6) k/uL RBC 2.76 L 2.81 L (4.30-5.90) m/uL Hgb 8.6 L 8.8 L (13.0-17.5) gm/dL Hct 26.1 L 26.7 L (39.0-53.0) % APTT (22.0-30.0) sec ABG pO2 (83-108) mmHg ABG Total CO2 (19-24) mmol/L Chloride (98-107) mmol/L Carbon Dioxide (22-30) mmol/L Creatinine (0.66-1.25) mg/dL Glucose (74-99) mg/dL POC Glucose (mg/dL) 131 H (75-99) mg/dL Calcium (8.4-10.2) mg/dL Magnesium (1.6-2.3) mg/dL AST (17-59) U/L ALT (21-72) U/L Total Protein (6.3-8.2) g/dL Albumin (3.5-5.0) g/dL 09/12/18 09/13/18 09/13/18 Range/Units 17:48 00:24 04:07 WBC (3.8-10.6) k/uL RBC 2.65 L (4.30-5.90) m/uL Hgb 8.2 L (13.0-17.5) gm/dL Hct 25.5 L (39.0-53.0) % APTT (22.0-30.0) sec ABG pO2 (83-108) mmHg ABG Total CO2 (19-24) mmol/L Chloride (98-107) mmol/L Carbon Dioxide (22-30) mmol/L Creatinine (0.66-1.25) mg/dL Glucose (74-99) mg/dL POC Glucose (mg/dL) 128 H 130 H (75-99) mg/dL Calcium (8.4-10.2) mg/dL Magnesium (1.6-2.3) mg/dL AST (17-59) U/L ALT (21-72) U/L Total Protein (6.3-8.2) g/dL Albumin (3.5-5.0) g/dL 09/13/18 09/13/18 09/13/18 Range/Units 04:07 04:07 05:05 WBC (3.8-10.6) k/uL RBC (4.30-5.90) m/uL Hgb (13.0-17.5) gm/dL Hct (39.0-53.0) % APTT 63.7 H (22.0-30.0) sec ABG pO2 74 L (83-108) mmHg ABG Total CO2 26 H (19-24) mmol/L Chloride 111 H (98-107) mmol/L Carbon Dioxide 14 L (22-30) mmol/L Creatinine 1.76 H (0.66-1.25) mg/dL Glucose 144 H (74-99) mg/dL POC Glucose (mg/dL) (75-99) mg/dL Calcium 8.1 L (8.4-10.2) mg/dL Magnesium 2.4 H (1.6-2.3) mg/dL AST 93 H (17-59) U/L ALT 132 H (21-72) U/L Total Protein 5.3 L (6.3-8.2) g/dL Albumin 2.5 L (3.5-5.0) g/dL 09/13/18 Range/Units 06:12 WBC (3.8-10.6) k/uL RBC (4.30-5.90) m/uL Hgb (13.0-17.5) gm/dL Hct (39.0-53.0) % APTT (22.0-30.0) sec ABG pO2 (83-108) mmHg ABG Total CO2 (19-24) mmol/L Chloride (98-107) mmol/L Carbon Dioxide (22-30) mmol/L Creatinine (0.66-1.25) mg/dL Glucose (74-99) mg/dL POC Glucose (mg/dL) 144 H (75-99) mg/dL Calcium (8.4-10.2) mg/dL Magnesium (1.6-2.3) mg/dL AST (17-59) U/L ALT (21-72) U/L Total Protein (6.3-8.2) g/dL Albumin (3.5-5.0) g/dL Microbiology - Last 24 Hours (Table) 09/12/18 01:35 Blood Culture - Preliminary Blood No Growth after 24 hours 09/12/18 01:15 Gram Stain - Preliminary Sputum Sputum Culture - Preliminary 09/12/18 01:35 Urine Culture - Preliminary Urine,Catheterized 09/09/18 23:19 Gram Stain - Final Sputum Sputum Culture - Final Assessment and Plan Assessment: Assessment Acute hypoxemic respiratory failure, requiring intubation and mechanical ventilation, secondary to bilateral massive pulmonary embolism. Massive pulmonary embolism with evidence of right heart strain and acute dilatation of the right ventricle subsequent cardiopulmonary arrest prolonged cardiopulmonary resuscitation and eventual return of spontaneous circulation, patient intubated on September 09 during the resuscitation. Prolonged cardiopulmonary arrest with prolonged cardiopulmonary resuscitation but with eventual return of spontaneous ventilation, rule out anoxic brain injury Previous history of DVT and pulmonary embolism, treated with 6 months of warfarin Ongoing GI bleed, requiring me to stop the IV heparin at this time. Acute DVT, right lower extremity Systemic administration of TPA on this admission Morbid obesity. Previous history of tobacco use History of anxiety Status post cholecystectomy and hernia repair Plan: Plan dated 09/09/2018 After a prolonged resuscitation and difficult intubation, the patient was eventually transferred back up to the ICU. The patient will be placed on the mechanical ventilator with settings of tidal volume 500, 100%, PEEP of 5, and rate of 24 breaths per minute. We'll place him on the volume assist control mode. We'll see if we can't place lines in the patient. The right groin line is probably a dirty line. He did receive systemic TPA. White count is 12.6, hemoglobin 15.4, hematocrit 48.3 and platelet count 279,000. PTT was 46.6. Sodium 139 potassium 4.6 chloride 109 CO2 22 BUN and creatinine were 12 and 0.99. Troponin was 0.258. Chest x-ray, labs, medications, computed tomography scan, and Doppler of lower extremity are reviewed. Medications are reviewed. Prognosis is guarded. Critical care time 40 minutes Plan dated 09/10/2018 Currently, the patient is on the assist control mode. Blood gases have been evaluated. FiO2 dropped from 60 down to 40%. The patient remains on propofol, norepinephrine, IV heparin, and IV amiodarone. His overall prognosis remains very poor. White count is 15 hemoglobin 12.7 hematocrit 38.8 and platelet count 288,000. PT 13.3 INR 1.4 and PTT 87.1. Sodium and potassium are normal. Chloride 108 CO2 25 BUN and creatinine were 21 and 1.76. AST was 559 8 hours T was 506 and albumin was 2.6. Microbiologic studies remain negative. Chest x- ray labs and medications are all reviewed. Additional recommendations and suggestions are forthcoming. Medications will be reviewed. Critical care time 38 minutes Plan Dated 09/11/2018 White Count Is 12.9, Hemoglobin down to 9.9, Hematocrit 30.2 and Platelet Count 236,000. Arterial Blood Gases Show a PaO2 of 113 a PaCO2 of 38 and a pH of 7.44. The FiO2 Can Be Dropped down to 35%. Sodium Is 136, Potassium 3.5, Chloride 107 and CO2 Is 26 BUN/creatinine Were 16 and 1.77 Respectively. Thus Far, Microbiologic Studies Are Negative. Chest X-Ray Shows Bilateral Pleural Effusions, Cardiomegaly, and Some Basilar Atelectasis or Infiltrate. Labs Medications and X-Rays Are All Reviewed. Prognosis Remains Very Guarded. I Did Have a Chance to Speak in Detail to the Daughter Yesterday. She Understands the Ione of the Situation. We Will Continue to Follow. Critical Care time is 33 minutes Plan dated 09/12/2018 We did try a daily interruption of sedation but when the sedation was turned off , the patient became very tachypnea and dyspneic. His respiratory rates were more than 45 rest permitted. Hence, a spontaneous breathing trial was not attempted. Chest x-ray is evaluated. Microbiologic studies are negative thus far. White count is 14, hemoglobin 9.4, hematocrit 27.2 and platelet count 197, 000. PT was 10.6 INR 1.1 and PTT 49.1. Sodium was 136 potassium 4.1 chloride 107 CO2 23 BUN 15 creatinine 1.68. Labs, x-rays and medications are all reviewed. Prognosis remains poor. The patient's IV amiodarone has been converted to oral amiodarone at 400 mg twice a day. The FiO2 was increased from 35 to 40% given the borderline PaO2. Critical care time 35 minutes Plan dated 09/13/2018 The patient will have his IV dropped from 75 mL an hour to 20 mL an hour. We' ll continue with tube feeding. We'll continue with the heparin but continue to watch the hemoglobin very carefully. The norepinephrine has been slowly weaned down. We will do a daily interruption of sedation. Yesterday, he was not a candidate for spontaneous breathing trial. We will cut one of the 3 ports of the central venous catheter for CVP monitoring. We'll give the patient Ancef 1 g every 8 hours empirically. Finally, we'll give the patient Lasix 40 mg IV push. Labs, x-rays a medications are all reviewed. I again spoke to the family yesterday. They understand his prognosis is very guarded. White count is 8.9, hemoglobin 8.2 and hematocrit 25.5 with a normal platelet count. PTT is 63.7. Sodium and potassium are normal. Chloride is 111 CO2 14 anion gap is 16 and BUN and creatinine were 15 and 1.76. Critical care time 35 minutes Time with Patient: Greater than 30
[2018-09-13] MEDS: SODIUM CHLORIDE 0.9% 1,000 ML IV SCH ×2 (09:31→20:26)
[2018-09-13] MEDS: CHLORHEXIDINE GLUCONATE 15 ML CUP MUCOUS MEM SCH ×2 (09:43→20:10)
[2018-09-13] MEDS: AMIODARONE 200 MG TAB PO SCH ×2 (09:43→20:10)
[2018-09-13] MEDS: PANTOPRAZOLE 40 MG/10 ML VIAL IVP SCH (09:43)
[2018-09-13 12:07] LABS: Glucose,Whole Blood 155 mg/dL (75-99)
[2018-09-13] MEDS: MULTIVITAMINS, THERA 1 EACH TAB PO SCH (12:28)
[2018-09-13] MEDS: ceFAZolin 1,000 MG in DEXTROSE/WATER 1 50ML.BAG IVPB SCH (15:55)
[2018-09-13 18:33] LABS: Glucose,Whole Blood 130 mg/dL (75-99)
[2018-09-13 19:21] LABS: ABG Base Excess -0.4 mmol/L; ABG HCO3 25 mmol/L (21-25); ABG Oxygen Saturation 91.1 % (94-97); ABG PCO2 48 mmHg (35-45); ABG PH 7.33 (7.35-7.45); ABG PO2 64 mmHg (83-108); ABG TCO2 27 mmol/L (19-24)
[2018-09-13] MEDS ORDERED: FUROSEMIDE 10 MG/ML 2 ML VIAL IV ONE (19:29)
[2018-09-13] MEDS ORDERED: ACETAMINOPHEN IV (For NPO) 1,000 MG in EMPTY BAG 1 BAG IVPB PRN (20:44)
[2018-09-14 00:13] LABS: Glucose,Whole Blood 131 mg/dL (75-99)
[2018-09-14] MEDS: ceFAZolin 1,000 MG in DEXTROSE/WATER 1 50ML.BAG IVPB SCH ×2 (00:23→08:24)
[2018-09-14] MEDS: INSULIN ASPART 100 UNIT/ML 1 ML 10 ML VIAL SQ SCH ×4 (00:27→17:02)
[2018-09-14] MEDS: PROPOFOL 1,000 MG in EMPTY BAG 1 BAG IV SCH ×5 (00:38→15:40)
[2018-09-14 02:00] LABS: Glucose,Whole Blood 154 mg/dL (75-99)
[2018-09-14] MEDS: IPRATROPIUM-ALBUTEROL 3 ML NEB INHALATION SCH ×6 (03:10→23:25)
[2018-09-14 04:50] LABS: Partial Thromboplastin Time 56.9 sec (22.0-30.0)
[2018-09-14 04:58] LABS: HCT 24.2 % (39.0-53.0); Hypochromasia Slight; MCH 32.3 pg (25.0-35.0); MCHC 32.9 g/dL (31.0-37.0); Mean Platelet Volume 7.4; Platelet Count 250 k/uL (150-450); RBC 2.47 m/uL (4.30-5.90); RDW 13.9 % (11.5-15.5); WBC 7.1 k/uL (3.8-10.6)
[2018-09-14 04:58] LABS: ABG Base Excess -1.1 mmol/L; ABG HCO3 25 mmol/L (21-25); ABG Oxygen Saturation 99.4 % (94-97); ABG PCO2 48 mmHg (35-45); ABG PH 7.32 (7.35-7.45); ABG PO2 116 mmHg (83-108); ABG TCO2 26 mmol/L (19-24)
[2018-09-14 05:20] LABS: Eosinophils # (M) 0.14 k/uL (0-0.7); Lymphocytes # (M) 0.57 k/uL (1.0-4.8); Metamyelocytes # (M) 0.14 k/uL (0); Metamyelocytes % 2 %; Monocytes # (M) 0.78 k/uL (0-1.0); Nucleated Red Blood Cells 0 /100 WBC (0-0)
[2018-09-14 05:21] LABS: Band Neutrophils % 49 %; Neutrophils % (M) 28 %; Polychromasia Present; Total Cells Counted 200
[2018-09-14 05:48] LABS: Glucose,Whole Blood 141 mg/dL (75-99)
[2018-09-14 06:58] LABS: Albumin 2.5 g/dL (3.5-5.0); Calcium 8.6 mg/dL (8.4-10.2); Magnesium 2.5 mg/dL (1.6-2.3); Phosphorus 5.4 mg/dL (2.5-4.5); Potassium 4.1 mmol/L (3.5-5.1); Total Bilirubin 1.4 mg/dL (0.2-1.3); Total Protein 5.4 g/dL (6.3-8.2)
--- NOTE | 2018-09-14 07:12 | P.PN ---
Subjective Progress Note Date: 09/14/18 Principal diagnosis: Pulmonary embolization This is a pleasant 52-year-old gentleman with a past medical history significant for DVT and PE was admitted to the hospital with shortness of breath and was diagnosed with PE. The patient coded twice. He received CPR twice as well. Currently he is in normal sinus mechanism. I'll follow-up with the patient today, 09/14/2018, he remains intubated. He remains hemodynamically unstable and requiring vasopressors with a small dose of Levophed. He continues to be on heparin IV. No more episode of SVT and he is maintaining normal sinus rhythm on the amiodarone by mouth. The chest x-ray from yesterday showed fluid overload and he was given Lasix in the morning as well as at night. He is in process of having chest x-ray this morning. The hemoglobin is 8.0. Objective - Vital Signs Vital signs: Vital Signs Temp 98.3 F 09/14/18 04:00 Pulse 75 09/14/18 07:00 Resp 33 H 09/14/18 07:00 BP 126/60 09/13/18 19:00 Pulse Ox 99 09/14/18 07:00 Intake & Output 09/13/18 09/14/18 09/14/18 18:59 06:59 18:59 Intake Total 3310.126 7875 Output Total 1825 890 Balance -204.552 285 Weight 160.3 kg 164.3 kg Intake: IV 308 438 ACETAMINOPHEN IV (For NPO 100 ) 1,000 mg In Empty Bag 1 bag @ 400 mls/hr IVPB ONCE PRN Rx#:[id number] Pressure bag 33 78 Sodium Chloride 0.9% 1, 275 260 000 ml @ 20 mls/hr IV . Q24H [facility] Rx#:[id number] Intake, IV Titration 979.448 700 Amount Heparin Sod,Pork in 0.45% 431.08 500 NaCl 25,000 unit In 0.45 % NaCl 1 500ml.bag @ 14.9 UNITS/KG/HR 45.95 mls/hr IV .[id number] [facility] Rx#: [id number] Norepinephrine 16 mg In 179.439 Sodium Chloride 0.9% 250 ml @ Titrate IV .Q0M [facility] Rx#:[id number] Propofol 1,000 mg In 368.929 200 Empty Bag 1 bag @ Titrate IV .Q0M [facility] Rx#: [id number] Tube Feeding 333 37 Output: Urine 1823 890 Other: Voiding Method Indwelling Catheter Indwelling Catheter ABP, PAP, CO, CI - Last Documented Arterial Blood Pressure 101/55 - Constitutional General appearance: Present: no acute distress - Labs CBC & Chem 7: 09/14/18 04:20 09/14/18 04:20 Labs: Abnormal Lab Results - Last 24 Hours (Table) 09/13/18 09/13/18 09/13/18 Range/Units 12:06 18:31 19:15 RBC (4.30-5.90) m/uL Hgb (13.0-17.5) gm/dL Hct (39.0-53.0) % Lymphocytes # (Manual) (1.0-4.8) k/uL Metamyelocytes # (Man) (0) k/uL APTT (22.0-30.0) sec ABG pH 7.33 L (7.35-7.45) ABG pCO2 48 H (35-45) mmHg ABG pO2 64 L (83-108) mmHg ABG Total CO2 27 H (19-24) mmol/L ABG O2 Saturation 91.1 L (94-97) % Chloride (98-107) mmol/L BUN (9-20) mg/dL Creatinine (0.66-1.25) mg/dL Glucose (74-99) mg/dL POC Glucose (mg/dL) 155 H 130 H (75-99) mg/dL Phosphorus (2.5-4.5) mg/dL Magnesium (1.6-2.3) mg/dL Total Bilirubin (0.2-1.3) mg/dL AST (17-59) U/L ALT (21-72) U/L Total Protein (6.3-8.2) g/dL Albumin (3.5-5.0) g/dL 09/14/18 09/14/18 09/14/18 Range/Units 00:11 01:58 04:20 RBC 2.47 L (4.30-5.90) m/uL Hgb 8.0 L (13.0-17.5) gm/dL Hct 24.2 L (39.0-53.0) % Lymphocytes # (Manual) 0.57 L (1.0-4.8) k/uL Metamyelocytes # (Man) 0.14 H (0) k/uL APTT (22.0-30.0) sec ABG pH (7.35-7.45) ABG pCO2 (35-45) mmHg ABG pO2 (83-108) mmHg ABG Total CO2 (19-24) mmol/L ABG O2 Saturation (94-97) % Chloride (98-107) mmol/L BUN (9-20) mg/dL Creatinine (0.66-1.25) mg/dL Glucose (74-99) mg/dL POC Glucose (mg/dL) 131 H 154 H (75-99) mg/dL Phosphorus (2.5-4.5) mg/dL Magnesium (1.6-2.3) mg/dL Total Bilirubin (0.2-1.3) mg/dL AST (17-59) U/L ALT (21-72) U/L Total Protein (6.3-8.2) g/dL Albumin (3.5-5.0) g/dL 09/14/18 09/14/18 09/14/18 Range/Units 04:20 04:20 04:54 RBC (4.30-5.90) m/uL Hgb (13.0-17.5) gm/dL Hct (39.0-53.0) % Lymphocytes # (Manual) (1.0-4.8) k/uL Metamyelocytes # (Man) (0) k/uL APTT 56.9 H (22.0-30.0) sec ABG pH 7.32 L (7.35-7.45) ABG pCO2 48 H (35-45) mmHg ABG pO2 116 H (83-108) mmHg ABG Total CO2 26 H (19-24) mmol/L ABG O2 Saturation 99.4 H (94-97) % Chloride 111 H (98-107) mmol/L BUN 24 H (9-20) mg/dL Creatinine 2.41 H (0.66-1.25) mg/dL Glucose 144 H (74-99) mg/dL POC Glucose (mg/dL) (75-99) mg/dL Phosphorus 5.4 H (2.5-4.5) mg/dL Magnesium 2.5 H (1.6-2.3) mg/dL Total Bilirubin 1.4 H (0.2-1.3) mg/dL AST 64 H (17-59) U/L ALT 102 H (21-72) U/L Total Protein 5.4 L (6.3-8.2) g/dL Albumin 2.5 L (3.5-5.0) g/dL 09/14/18 Range/Units 05:47 RBC (4.30-5.90) m/uL Hgb (13.0-17.5) gm/dL Hct (39.0-53.0) % Lymphocytes # (Manual) (1.0-4.8) k/uL Metamyelocytes # (Man) (0) k/uL APTT (22.0-30.0) sec ABG pH (7.35-7.45) ABG pCO2 (35-45) mmHg ABG pO2 (83-108) mmHg ABG Total CO2 (19-24) mmol/L ABG O2 Saturation (94-97) % Chloride (98-107) mmol/L BUN (9-20) mg/dL Creatinine (0.66-1.25) mg/dL Glucose (74-99) mg/dL POC Glucose (mg/dL) 141 H (75-99) mg/dL Phosphorus (2.5-4.5) mg/dL Magnesium (1.6-2.3) mg/dL Total Bilirubin (0.2-1.3) mg/dL AST (17-59) U/L ALT (21-72) U/L Total Protein (6.3-8.2) g/dL Albumin (3.5-5.0) g/dL Microbiology - Last 24 Hours (Table) 09/12/18 01:35 Blood Culture - Preliminary Blood No Growth after 48 hours 09/12/18 01:35 Urine Culture - Final Urine,Catheterized 09/12/18 01:15 Gram Stain - Preliminary Sputum Sputum Culture - Preliminary Assessment and Plan Assessment: Assessment Massive PE History of DVT PE in the past Morbid obesity Status post cardiopulmonary arrest Plan Continue amiodarone by mouth Continue monitor the hemoglobin Try to wean him from the Levothroid The prognosis is very poor. Follow-up with the patient
[2018-09-14] MEDS: CHLORHEXIDINE GLUCONATE 15 ML CUP MUCOUS MEM SCH ×2 (08:23→20:07)
[2018-09-14] MEDS: PANTOPRAZOLE 40 MG/10 ML VIAL IVP SCH (08:23)
[2018-09-14] MEDS: AMIODARONE 200 MG TAB PO SCH ×2 (08:23→20:07)
--- NOTE | 2018-09-14 09:03 | XR ---
EXAMINATION TYPE: XR chest 1V portable DATE OF EXAM: 09/14/2018 COMPARISON: 09/13/2018 HISTORY: Tube placement TECHNIQUE: Single frontal view of the chest is obtained. FINDINGS: ET tube, NG tube and central line stable. Bilateral consolidation and pleural effusions ar e stable. Heart size stable. No pneumothorax. IMPRESSION: 1. Stable bilateral consolidation and pleural effusion correlate for CHF versus diffuse pneumonia.
[2018-09-14] MEDS: PIPERACILLIN-TAZOBACTAM 3.375 GM in DEXTROSE/WATER 1 50ML.BAG IVPB SCH ×2 (10:53→17:48)
--- NOTE | 2018-09-14 11:00 | P.PN ---
Subjective Progress Note Date: 09/14/18 On 09/14/2018, I am seeing this patient for a follow-up in the intensive care unit. The patient was in following a massive but the pulmonary embolism, right ventricular enlargement and right ventricular strain pattern with subsequent hemodynamic collapse and cardiac arrest. The patient is post TPA infusion at time of the code. The patient is currently on IV heparin. In terms of his breathing, the patient is intubated on a mechanical ventilator. The patient is currently on an assist-control mode at the rate of 32 with a tidal volume of 500 and FiO2 of 50% with a PEEP of 10. The chest x-ray from today shows adequate positioning of 82. There is some atelectatic changes and infiltration of the right lung base. Meanwhile, the blood gases from today showed a pH of 7.32 with a pCO2 of 48 and pO2 of 116 and this was done on the above-mentioned ventilator settings. No significant orotracheal secretions. Breath other are equal and bilateral. Airway pressures are not elevated. Hemodynamically, the patient is on pressors at 3 mics of norepinephrine infusion for blood pressure support. He has been aggressively resuscitated IV fluids and a noted significant amount of weight gain over the past several days. The patient was given a dose of Lasix yesterday. In addition the patient was having episodes of SVTs throughout his current hospitalization and he was treated with adenosine and currently is on amiodarone orally 5 mg by mouth twice a day and his cardiac rhythm is normalized and his in sinus rhythm. Echocardiogram, the patient has an ejection fraction of 6065%. The rhythm to Doxil septal motion abnormality consistent with right ventricular volume/strain pattern. Of interest also is development of acute kidney injury. The patient came in initially with a normal renal function. Subsequently creatinine came up to 1.7 and currently is up to 2.41. He was given a dose of Lasix yesterday and none since yesterday. The patient is nonoliguric. The net fluid balance over the past 24 hours is +825 mL. He is having loose liquidy bowel movement. He is currently on vital 1.2 at the rate of 35 mL an hour. He is sedated with Diprivan. Lower oximetry is a swallow with extensive swelling of the right lower extremity which also has a DVT. The patient is having on and off low- grade fever and the patient is currently on IV Ancef. Most recent hemoglobin is at 8.0. White cell count is not elevated at 7.1. He remains on IV heparin regarding the massive bilateral pulmonary embolism. Objective - Vital Signs Vital signs: Vital Signs Temp 98.1 F 09/14/18 08:00 Pulse 77 09/14/18 10:00 Resp 32 H 09/14/18 10:00 BP 126/60 09/13/18 19:00 Pulse Ox 98 09/14/18 10:00 Intake & Output 09/13/18 09/14/18 09/14/18 18:59 06:59 18:59 Intake Total 3317.695 7306 136 Output Total 1825 890 114 Balance -204.552 385 22 Weight 160.3 kg 164.3 kg 164.3 kg Intake: IV 308 438 78 ACETAMINOPHEN IV (For NPO 100 ) 1,000 mg In Empty Bag 1 bag @ 400 mls/hr IVPB ONCE PRN Rx#:[id number] Pressure bag 33 78 18 Sodium Chloride 0.9% 1, 275 260 60 000 ml @ 20 mls/hr IV . Q24H [facility] Rx#:[id number] Intake, IV Titration 979.448 800 58 Amount Heparin Sod,Pork in 0.45% 431.08 500 NaCl 25,000 unit In 0.45 % NaCl 1 500ml.bag @ 14.9 UNITS/KG/HR 45.95 mls/hr IV .[id number] [facility] Rx#: [id number] Norepinephrine 16 mg In 179.439 58 Sodium Chloride 0.9% 250 ml @ Titrate IV .Q0M [facility] Rx#:[id number] Propofol 1,000 mg In 368.929 300 Empty Bag 1 bag @ Titrate IV .Q0M [facility] Rx#: [id number] Tube Feeding 333 37 Output: Urine 1825 890 114 Other: Voiding Method Indwelling Catheter Indwelling Catheter Indwelling Catheter ABP, PAP, CO, CI - Last Documented Arterial Blood Pressure 116/52 - Exam No acute distress, sedated, orally placed endotracheal tube and NG tube. No or minimal blood noted in the NG tube and certainly no bleeding from the mouth at this time. HEENT examination is grossly unremarkable. Mucous membranes are moist. Neck supple. Full range of motion. No adenopathy thyromegaly or neck vein distention. The patient has a triple-lumen catheter in his neck left IJ area. Cardiovascular examination reveals regular rhythm rate. S1-S2 normal. No S3 or S4. No discernible murmur noted. Heart sounds are distant. Heart rate is100. Lungs reveal coarse bilateral breath sounds. Crackles are noted bilaterally in our bit worse today. Diffuse rhonchi are appreciated. No wheezes. Breath sounds are diminished throughout. Breath sounds are equal bilaterally. Abdomen is obese. Bowel sounds are noted. No masses appreciated. Extremities. There is some chronic venous stasis changes. There is some pitting. Some mild livedo reticularis. Note that the right lower extremity is more swollen compared to the left. This is 1 pitting edema in the right lower extremity. Skin is reveal some chronic venous stasis changes. Neurologic examination could not be adequately assessed as the patient is currently sedated. The patient was given a sedation holiday over the past 24 hours and the patient was told to be arousing and following some simple commands. - Labs CBC & Chem 7: 09/14/18 04:20 09/14/18 04:20 Labs: Abnormal Lab Results - Last 24 Hours (Table) 09/13/18 09/13/18 09/13/18 Range/Units 12:06 18:31 19:15 RBC (4.30-5.90) m/uL Hgb (13.0-17.5) gm/dL Hct (39.0-53.0) % Lymphocytes # (Manual) (1.0-4.8) k/uL Metamyelocytes # (Man) (0) k/uL APTT (22.0-30.0) sec ABG pH 7.33 L (7.35-7.45) ABG pCO2 48 H (35-45) mmHg ABG pO2 64 L (83-108) mmHg ABG Total CO2 27 H (19-24) mmol/L ABG O2 Saturation 91.1 L (94-97) % Chloride (98-107) mmol/L BUN (9-20) mg/dL Creatinine (0.66-1.25) mg/dL Glucose (74-99) mg/dL POC Glucose (mg/dL) 155 H 130 H (75-99) mg/dL Phosphorus (2.5-4.5) mg/dL Magnesium (1.6-2.3) mg/dL Total Bilirubin (0.2-1.3) mg/dL AST (17-59) U/L ALT (21-72) U/L Total Protein (6.3-8.2) g/dL Albumin (3.5-5.0) g/dL 09/14/18 09/14/18 09/14/18 Range/Units 00:11 01:58 04:20 RBC 2.47 L (4.30-5.90) m/uL Hgb 8.0 L (13.0-17.5) gm/dL Hct 24.2 L (39.0-53.0) % Lymphocytes # (Manual) 0.57 L (1.0-4.8) k/uL Metamyelocytes # (Man) 0.14 H (0) k/uL APTT (22.0-30.0) sec ABG pH (7.35-7.45) ABG pCO2 (35-45) mmHg ABG pO2 (83-108) mmHg ABG Total CO2 (19-24) mmol/L ABG O2 Saturation (94-97) % Chloride (98-107) mmol/L BUN (9-20) mg/dL Creatinine (0.66-1.25) mg/dL Glucose (74-99) mg/dL POC Glucose (mg/dL) 131 H 154 H (75-99) mg/dL Phosphorus (2.5-4.5) mg/dL Magnesium (1.6-2.3) mg/dL Total Bilirubin (0.2-1.3) mg/dL AST (17-59) U/L ALT (21-72) U/L Total Protein (6.3-8.2) g/dL Albumin (3.5-5.0) g/dL 09/14/18 09/14/18 09/14/18 Range/Units 04:20 04:20 04:54 RBC (4.30-5.90) m/uL Hgb (13.0-17.5) gm/dL Hct (39.0-53.0) % Lymphocytes # (Manual) (1.0-4.8) k/uL Metamyelocytes # (Man) (0) k/uL APTT 56.9 H (22.0-30.0) sec ABG pH 7.32 L (7.35-7.45) ABG pCO2 48 H (35-45) mmHg ABG pO2 116 H (83-108) mmHg ABG Total CO2 26 H (19-24) mmol/L ABG O2 Saturation 99.4 H (94-97) % Chloride 111 H (98-107) mmol/L BUN 24 H (9-20) mg/dL Creatinine 2.41 H (0.66-1.25) mg/dL Glucose 144 H (74-99) mg/dL POC Glucose (mg/dL) (75-99) mg/dL Phosphorus 5.4 H (2.5-4.5) mg/dL Magnesium 2.5 H (1.6-2.3) mg/dL Total Bilirubin 1.4 H (0.2-1.3) mg/dL AST 64 H (17-59) U/L ALT 102 H (21-72) U/L Total Protein 5.4 L (6.3-8.2) g/dL Albumin 2.5 L (3.5-5.0) g/dL 09/14/18 Range/Units 05:47 RBC (4.30-5.90) m/uL Hgb (13.0-17.5) gm/dL Hct (39.0-53.0) % Lymphocytes # (Manual) (1.0-4.8) k/uL Metamyelocytes # (Man) (0) k/uL APTT (22.0-30.0) sec ABG pH (7.35-7.45) ABG pCO2 (35-45) mmHg ABG pO2 (83-108) mmHg ABG Total CO2 (19-24) mmol/L ABG O2 Saturation (94-97) % Chloride (98-107) mmol/L BUN (9-20) mg/dL Creatinine (0.66-1.25) mg/dL Glucose (74-99) mg/dL POC Glucose (mg/dL) 141 H (75-99) mg/dL Phosphorus (2.5-4.5) mg/dL Magnesium (1.6-2.3) mg/dL Total Bilirubin (0.2-1.3) mg/dL AST (17-59) U/L ALT (21-72) U/L Total Protein (6.3-8.2) g/dL Albumin (3.5-5.0) g/dL Microbiology - Last 24 Hours (Table) 09/12/18 01:15 Gram Stain - Final Sputum Sputum Culture - Final 09/12/18 01:35 Blood Culture - Preliminary Blood No Growth after 48 hours 09/12/18 01:35 Urine Culture - Final Urine,Catheterized Assessment and Plan Plan: Assessment 1 acute hypoxic respiratory failure secondary to massive bilateral pulmonary embolism, status post cardiac pulmonary arrest, status post TPA treatment, currently on IV heparin. 2 acute respiratory failure secondary to above, currently intubated on a mechanical ventilator 3 massive pulmonary embolism with right ventricular strain and dilatation with subsequent cardiac arrest 4 acute cardio-pulmonary arrest secondary to massive PE 5 acute hypotension,, currently on pressors at 3 mics of norepinephrine infusion for blood pressure support. Echocardiac Mehdi shows a preserved LV function with significant right ventricular strain and overload 6 acute kidney injury with a creatinine up to 2.4, nonoliguric 7 acute DVT of the right lower extremity 8 morbid obesity with a BMI of 46.5 9 history of smoking 10 history of anxiety 11 chronic anemia with a hemoglobin of 8.0 12 right lower lobe pneumonia suspected, possibly of an aspiration type 13 episodes of SVT, currently in sinus rhythm Plan Continue vent support. Drop the PEEP down to 8 and then down to 5. Oxygen saturation tolerates. I'm going also to wean down the FiO2 down to 40% oxygenation saturation tolerates. Continue vent support. Sedation holiday again today. Wean off pressors if possible. The patient has been aggressively resuscitated IV fluids and I would suggest covering the LV fluids to KVO. Meanwhile, I am concerned about acute kidney injury. We'll consult nephrology regarding this problem and the creatinine is up to 2.4. His nonoliguric at this point in time. Continue IV heparin. Continue enteral feeding for nutritional support. Check stool for C&S. Continue vital 1.2 as enteral nutrition. I'm concerned of excessive sputum production from the enteral feeding and this will be discussed with bilateral to make sure the patient is not being overfed. Keep sedation and carried down to lower level of the prevent. The patient was having episodes of fever. There is some right basilar atelectatic changes/infiltration. I would suggest stopping the IV And Switching This Patient IV Zosyn. Obtain Sputum Gram Stain and Culture If Possible. Obtain Blood Cultures the Patient Continues to Have Episodes of Fever. We'll Continue to Follow. There is a critically care evaluation was done in 40 minutes. The patient will be kept in ICU and will continue to follow make further recommendations based on his progress. Time with Patient: Greater than 30
[2018-09-14] MEDS: MULTIVITAMINS, THERA 1 EACH TAB PO SCH (11:17)
[2018-09-14 11:23] LABS: Glucose,Whole Blood 139 mg/dL (75-99)
--- NOTE | 2018-09-14 12:12 | P.NPCON ---
History of Present Illness - Reason for Consult acute renal failure - History of Present Illness Reason for consultation: Acute kidney injury History of present illness: Patient is a 52-year-old male seen in renal consultation for acute kidney injury. His baseline creatinine is 1 and elevated at 2.41 today. Patient presented to the hospital on September 08 shortness of breath. He had a CTA done which revealed massive bilateral pulmonary embolus. He underwent TPA administration. He is currently maintained on heparin drip. He's been quite hypotensive and is requiring vasopressor support. Currently on 3 mics of Levophed. He did receive 1 dose of IV Lasix yesterday. This morning again his blood pressure was in the systolic 80s. On September 09 he also suffered 2 episodes of cardiopulmonary arrest. He also has a low-grade fever. Cultures have been drawn. He's receiving antibiotics. Urine output has been in the range of 30-50 mL an hour. He is also receiving tube feeds. Currently intubated and sedated. Vital signs are stable. Currently on 3 mics of Levophed. General: The patient appeared well nourished and normally developed. HEENT: Head exam is unremarkable. Neck is without jugular venous distension. Intubated. LUNGS: Breath sounds decreased. HEART: Rate and Rhythm are regular. First and second heart sounds normal. No murmurs, rubs or gallops. ABDOMEN: Abdominal exam reveals normal bowel sounds. Non-tender and non- distended. No evidence of peritonitis. EXTREMITITES: Chronic skin changes noted. Past Medical History Past Medical History: Deep Vein Thrombosis (DVT), Pulmonary Embolus (PE) Additional Past Medical History / Comment(s): x-smoker, seborrheic dermatitits, keyur leg lympg edema, anxiety History of Any Multi-Drug Resistant Organisms: None Reported Past Surgical History: Cholecystectomy, Hernia Repair Additional Past Surgical History / Comment(s): left achillies tendon repair 1974 , umb hernia repair Past Anesthesia/Blood Transfusion Reactions: No Reported Reaction Smoking Status: Former smoker - Past Family History Brother(s) Family Medical History: Pulmonary Embolus Additional Family Medical History / Comment(s): CABG Mother Family Medical History: COPD, Pneumonia Additional Family Medical History / Comment(s): non-smoker. at age 89 Father Family Medical History: Myocardial Infarction ([place]) Additional Family Medical History / Comment(s): smoker, mi - age 64 Medications and Allergies Home Medications Medication Instructions Recorded Confirmed Type Multivitamin,Therapeutic [Thera] 1 tab PO DAILY 09/08/18 09/08/18 History Naproxen Sodium [Aleve] 220 mg PO DAILY 09/08/18 09/08/18 History Allergies Allergy/AdvReac Type Severity Reaction Status Date / Time No Known Allergies Allergy Verified 09/08/18 11:26 Physical Exam Vitals: Vital Signs Temp Pulse Resp BP Pulse Ox 09/14/18 11:25 79 09/14/18 11:09 81 09/14/18 11:00 81 32 H 97 09/14/18 10:30 76 32 H 98 09/14/18 10:00 77 32 H 98 09/14/18 09:30 76 32 H 97 09/14/18 09:00 73 32 H 97 09/14/18 08:30 73 32 H 98 09/14/18 08:02 71 09/14/18 08:00 98.1 F 71 32 H 98 09/14/18 07:35 73 09/14/18 07:30 73 32 H 97 09/14/18 07:00 75 33 H 99 09/14/18 06:30 74 32 H 97 09/14/18 06:00 75 32 H 95 09/14/18 05:30 75 32 H 95 09/14/18 05:00 75 32 H 95 09/14/18 04:30 77 32 H 95 09/14/18 04:00 98.3 F 77 32 H 95 09/14/18 03:30 76 32 H 96 09/14/18 03:18 78 09/14/18 03:00 80 32 H 94 L 09/14/18 02:30 78 32 H 94 L 09/14/18 02:00 80 32 H 94 L 09/14/18 01:30 83 32 H 94 L 09/14/18 01:00 87 33 H 95 09/14/18 00:30 87 32 H 95 09/14/18 00:00 98.9 F 82 32 H 96 09/13/18 23:56 87 09/13/18 23:48 87 09/13/18 23:30 91 36 H 92 L 09/13/18 23:05 93 32 H 90 L 09/13/18 23:00 93 32 H 90 L 09/13/18 22:30 96 33 H 90 L 09/13/18 22:00 96 32 H 90 L 09/13/18 21:30 101 H 33 H 89 L 09/13/18 21:00 99 33 H 89 L 09/13/18 20:30 100 33 H 89 L 09/13/18 20:00 101 F H 96 34 H 89 L 09/13/18 19:55 94 09/13/18 19:32 94 09/13/18 19:30 98 34 H 88 L 09/13/18 19:00 95 35 H 126/60 88 L 09/13/18 18:30 96 34 H 126/60 91 L 09/13/18 18:00 93 34 H 126/60 89 L 09/13/18 17:30 96 33 H 126/60 89 L 09/13/18 17:00 93 32 H 126/60 91 L 09/13/18 16:30 93 34 H 126/60 91 L 09/13/18 16:00 99.5 F 92 34 H 126/60 93 L 09/13/18 15:38 90 09/13/18 15:30 90 32 H 126/60 95 09/13/18 15:21 90 09/13/18 15:00 93 33 H 126/60 92 L 09/13/18 14:30 94 34 H 126/60 94 L 09/13/18 14:00 96 32 H 126/60 94 L 09/13/18 13:30 94 33 H 126/60 95 09/13/18 13:00 91 33 H 126/60 98 09/13/18 12:30 91 32 H 126/60 94 L Intake and Output 09/13/18 09/14/18 09/14/18 22:59 06:59 14:59 Intake Total 1045.412 534 314.899 Output Total 875 515 164 Balance 170.412 19 150.899 Intake: IV 196 334 104 ACETAMINOPHEN IV (For NPO 100 ) 1,000 mg In Empty Bag 1 bag @ 400 mls/hr IVPB ONCE PRN Rx#:[id number] Pressure bag 36 54 24 Sodium Chloride 0.9% 1, 160 180 80 000 ml @ 20 mls/hr IV . Q24H [facility] Rx#:[id number] Intake, IV Titration 775.412 200 210.899 Amount Heparin Sod,Pork in 0.45% 500 NaCl 25,000 unit In 0.45 % NaCl 1 500ml.bag @ 14.9 UNITS/KG/HR 45.95 mls/hr IV .[id number] [facility] Rx#: [id number] Norepinephrine 16 mg In 6.483 58 Sodium Chloride 0.9% 250 ml @ Titrate IV .Q0M [facility] Rx#:[id number] Propofol 1,000 mg In 268.929 200 152.899 Empty Bag 1 bag @ Titrate IV .Q0M [facility] Rx#: [id number] Tube Feeding 74 Output: Urine 875 515 164 Other: Voiding Method Indwelling Catheter Indwelling Catheter Indwelling Catheter Weight 164.3 kg 164.3 kg ABP, PAP, CO, CI - Last 8 Hours Arterial Blood Pressure 118/53 Arterial Blood Pressure 108/52 Arterial Blood Pressure 116/52 Arterial Blood Pressure 99/52 Arterial Blood Pressure 95/49 Arterial Blood Pressure 116/55 Arterial Blood Pressure 98/49 Arterial Blood Pressure 91/49 Arterial Blood Pressure 101/55 Arterial Blood Pressure 91/50 Arterial Blood Pressure 117/54 Arterial Blood Pressure 116/54 Arterial Blood Pressure 113/54 Arterial Blood Pressure 111/53 Results - Lab Results Most recent lab results ABG pH 7.32 (7.35-7.45) L 09/14/18 04:54 ABG pCO2 48 mmHg (35-45) H 09/14/18 04:54 ABG pO2 116 mmHg (83-108) H 09/14/18 04:54 ABG HCO3 25 mmol/L (21-25) 09/14/18 04:54 ABG O2 Saturation 99.4 % (94-97) H 09/14/18 04:54 Calcium 8.6 mg/dL (8.4-10.2) 09/14/18 04:20 Phosphorus 5.4 mg/dL (2.5-4.5) H 09/14/18 04:20 Magnesium 2.5 mg/dL (1.6-2.3) H 09/14/18 04:20 09/14/18 04:20 09/14/18 04:20 Assessment and Plan Plan: Assessment: 1. Acute kidney injury secondary to ATN secondary to hypotension and hemodynamic instability. Baseline creatinine is 1 and elevated at 2.41 today. 2. Bilateral pulmonary embolism status post TPA maintained on IV heparin. 3. Right lower extremity DVT. 4. Hypotension maintained on 3 mics of Levophed. 5. Acute hypoxic respiratory failure secondary to PE. 6. Hyperphosphatemia secondary to acute kidney injury. 7. SVT now in sinus rhythm. Cardiology following. Plan: Hold off on diuretics today. Maintain tube feeds. Follow-up cultures. Avoid nephrotoxins. Continue to monitor renal function and urine output. Check renal ultrasound. Check cortisol level. Thank you for the consultation. I will continue to follow the patient with you during his hospital stay.
[2018-09-14 12:21] LABS: Albumin 2.4 g/dL (3.5-5.0); Calcium 8.1 mg/dL (8.4-10.2); Potassium 3.7 mmol/L (3.5-5.1); Total Bilirubin 1.3 mg/dL (0.2-1.3)
[2018-09-14] MEDS: POTASSIUM CHLORIDE 10 MEQ in WATER FOR INJECTION 1 100ML.BAG IVPB SCH ×2 (12:57→15:38)
--- NOTE | 2018-09-14 14:43 | US ---
EXAMINATION TYPE: US kidneys/renal and bladder DATE OF EXAM: 09/14/2018 COMPARISON: NONE CLINICAL HISTORY: acosta. ICU patient with [facility] EXAM MEASUREMENTS: Right Kidney: 12.6 x 6.2 x 5.6 cm Left Kidney: 13.7 x 6.8 x 5.4 cm Right Kidney: no evidence of hydronephrosis Left Kidney: limited evaluation due to overlying bowel content, patient's body habitus and patient un able to rotate from supine position, no evidence of hydronephrosis Bladder: Gonsales Catheter There is no evidence for hydronephrosis at this point in time. No nephrolithiasis is seen. No juliana s are identified. The urinary bladder is anechoic. Bilateral ureteral jets are seen. IMPRESSION: No distinct abnormality appreciated at this time.
[2018-09-14] MEDS: HEPARIN SOD,PORK IN 0.45% NACL 25,000 UNIT in 0.45% NACL 1 500ML.BAG IV SCH ×2 (17:03→17:47)
[2018-09-14 17:04] LABS: Glucose,Whole Blood 121 mg/dL (75-99)
[2018-09-14] MEDS: SODIUM CHLORIDE 0.9% 1,000 ML IV SCH (19:47)
[2018-09-14 20:29] LABS: HCT 23.4 % (39.0-53.0); HGB 7.6 gm/dL (13.0-17.5); MCH 31.1 pg (25.0-35.0); MCHC 32.6 g/dL (31.0-37.0); MCV 95.6 fL (80.0-100.0); Mean Platelet Volume 8.2; Platelet Count 288 k/uL (150-450); RBC 2.45 m/uL (4.30-5.90); WBC 10.8 k/uL (3.8-10.6)
[2018-09-14 23:59] LABS: Glucose,Whole Blood 134 mg/dL (75-99)
[2018-09-15] MEDS: INSULIN ASPART 100 UNIT/ML 1 ML 10 ML VIAL SQ SCH ×4 (00:02→18:07)
[2018-09-15] MEDS: PROPOFOL 1,000 MG in EMPTY BAG 1 BAG IV SCH ×9 (00:02→23:00)
[2018-09-15] MEDS: IPRATROPIUM-ALBUTEROL 3 ML NEB INHALATION SCH ×6 (03:02→23:02)
[2018-09-15] MEDS: PIPERACILLIN-TAZOBACTAM 3.375 GM in DEXTROSE/WATER 1 50ML.BAG IVPB SCH ×3 (03:29→17:58)
[2018-09-15 04:28] LABS: HCT 22.9 % (39.0-53.0); HGB 7.5 gm/dL (13.0-17.5); MCH 31.7 pg (25.0-35.0); MCV 96.1 fL (80.0-100.0); Mean Platelet Volume 7.4; Platelet Count 320 k/uL (150-450); RBC 2.38 m/uL (4.30-5.90); RDW 13.9 % (11.5-15.5); WBC 12.2 k/uL (3.8-10.6)
[2018-09-15 04:35] LABS: ABG Base Excess -2.6 mmol/L; ABG HCO3 23 mmol/L (21-25); ABG PCO2 41 mmHg (35-45); ABG PH 7.35 (7.35-7.45); ABG PO2 124 mmHg (83-108); ABG TCO2 24 mmol/L (19-24)
[2018-09-15 05:42] LABS: Partial Thromboplastin Time 38.8 sec (22.0-30.0); Prothrombin Time 9.6 sec (9.0-12.0)
[2018-09-15 05:59] LABS: Glucose,Whole Blood 119 mg/dL (75-99)
[2018-09-15] MEDS: HEPARIN SOD,PORK IN 0.45% NACL 25,000 UNIT in 0.45% NACL 1 500ML.BAG IV SCH ×2 (06:34→14:20)
--- NOTE | 2018-09-15 07:12 | P.PN ---
Subjective Progress Note Date: 09/15/18 Principal diagnosis: Pulmonary embolization This is a pleasant 52-year-old gentleman with a past medical history significant for DVT and PE was admitted to the hospital with shortness of breath and was diagnosed with massive bilateral PE. The patient coded twice with PDA and he received CPR per protocol. He did also received TPA. On follow-up with the patient today, September 152017, he remains intubated on mechanical ventilation. He remains hemodynamically unstable and requiring small dose of Levothroid. Unfortunately he is not making urine and the creatinine has been getting worse. Nephrology was consulted to see the patient. The hemoglobin remains above 7. He also remains on IV heparin at this point. I did review the chest x-ray from today and that revealed at least moderate right pleural effusion. The patient might benefit from challenge with Lasix. He remains in normal sinus mechanism and no more episode of SVT. Objective - Vital Signs Vital signs: Vital Signs Temp 98 F 09/15/18 04:00 Pulse 78 09/15/18 07:00 Resp 32 H 09/15/18 07:00 BP 126/60 09/13/18 19:00 Pulse Ox 99 09/15/18 07:00 Intake & Output 09/14/18 09/15/18 09/15/18 18:59 06:59 18:59 Intake Total 1482.460 938 Output Total 422 385 Balance 1060.460 553 Weight 164.3 kg 165.2 kg Intake: IV 274 338 Pressure bag 54 78 Sodium Chloride 0.9% 1, 220 260 000 ml @ 20 mls/hr IV . Q24H [facility] Rx#:[id number] Intake, IV Titration 1023.460 600 Amount Heparin Sod,Pork in 0.45% 500 500 NaCl 25,000 unit In 0.45 % NaCl 1 500ml.bag @ 14.9 UNITS/KG/HR 45.95 mls/hr IV .[id number] [facility] Rx#: [id number] Norepinephrine 16 mg In 70.561 Sodium Chloride 0.9% 250 ml @ Titrate IV .Q0M [facility] Rx#:[id number] Potassium Chloride 10 meq 100 In Water For Injection 1 100ml.bag @ 100 mls/hr IVPB Q1H [facility] Rx#: [id number] Propofol 1,000 mg In 352.899 100 Empty Bag 1 bag @ Titrate IV .Q0M [facility] Rx#: [id number] Tube Feeding 185 Output: Urine 422 385 Other: Voiding Method Indwelling Catheter Indwelling Catheter # Voids 1 ABP, PAP, CO, CI - Last Documented Arterial Blood Pressure 118/62 - Constitutional General appearance: Present: no acute distress - Respiratory Respiratory: bilateral: diminished - Cardiovascular Rhythm: regular Heart sounds: normal: S1, S2 - Labs CBC & Chem 7: 09/15/18 04:12 09/14/18 10:11 Labs: Abnormal Lab Results - Last 24 Hours (Table) 09/14/18 09/14/18 09/14/18 Range/Units 10:11 11:23 17:01 WBC (3.8-10.6) k/uL RBC (4.30-5.90) m/uL Hgb (13.0-17.5) gm/dL Hct (39.0-53.0) % APTT (22.0-30.0) sec ABG pO2 (83-108) mmHg ABG O2 Saturation (94-97) % Chloride 110 H (98-107) mmol/L BUN 27 H (9-20) mg/dL Creatinine 2.64 H (0.66-1.25) mg/dL Glucose 139 H (74-99) mg/dL POC Glucose (mg/dL) 139 H 121 H (75-99) mg/dL Calcium 8.1 L (8.4-10.2) mg/dL ALT 87 H (21-72) U/L Total Protein 5.0 L (6.3-8.2) g/dL Albumin 2.4 L (3.5-5.0) g/dL 09/14/18 09/14/18 09/15/18 Range/Units 20:22 23:57 04:12 WBC 10.8 H (3.8-10.6) k/uL RBC 2.45 L (4.30-5.90) m/uL Hgb 7.6 L (13.0-17.5) gm/dL Hct 23.4 L (39.0-53.0) % APTT 38.8 H (22.0-30.0) sec ABG pO2 (83-108) mmHg ABG O2 Saturation (94-97) % Chloride (98-107) mmol/L BUN (9-20) mg/dL Creatinine (0.66-1.25) mg/dL Glucose (74-99) mg/dL POC Glucose (mg/dL) 134 H (75-99) mg/dL Calcium (8.4-10.2) mg/dL ALT (21-72) U/L Total Protein (6.3-8.2) g/dL Albumin (3.5-5.0) g/dL 09/15/18 09/15/18 09/15/18 Range/Units 04:12 04:32 05:58 WBC 12.2 H (3.8-10.6) k/uL RBC 2.38 L (4.30-5.90) m/uL Hgb 7.5 L (13.0-17.5) gm/dL Hct 22.9 L (39.0-53.0) % APTT (22.0-30.0) sec ABG pO2 124 H (83-108) mmHg ABG O2 Saturation 100.0 H (94-97) % Chloride (98-107) mmol/L BUN (9-20) mg/dL Creatinine (0.66-1.25) mg/dL Glucose (74-99) mg/dL POC Glucose (mg/dL) 119 H (75-99) mg/dL Calcium (8.4-10.2) mg/dL ALT (21-72) U/L Total Protein (6.3-8.2) g/dL Albumin (3.5-5.0) g/dL Microbiology - Last 24 Hours (Table) 09/12/18 01:35 Blood Culture - Preliminary Blood No Growth after 72 hours 09/12/18 01:15 Gram Stain - Final Sputum Sputum Culture - Final Assessment and Plan Assessment: Assessment Massive PE History of DVT PE in the past Morbid obesity Status post cardiopulmonary arrest Plan Continue amiodarone by mouth Continue monitor the hemoglobin Try to wean him from the Levothroid The prognosis is very poor. The patient might benefit from IV Lasix to challenge him Follow-up with the patient
[2018-09-15] MEDS: AMIODARONE 200 MG TAB PO SCH ×2 (08:18→20:52)
[2018-09-15] MEDS: CHLORHEXIDINE GLUCONATE 15 ML CUP MUCOUS MEM SCH ×2 (08:18→20:52)
[2018-09-15] MEDS: PANTOPRAZOLE 40 MG/10 ML VIAL IVP SCH (08:19)
--- NOTE | 2018-09-15 09:06 | XR ---
EXAMINATION TYPE: XR chest 1V portable DATE OF EXAM: 09/15/2018 COMPARISON: Prior chest x-ray 09/14/2018 HISTORY: Intubated TECHNIQUE: Single frontal view of the chest is obtained. FINDINGS: Patient is rotated. Endotracheal tube and NG tube, left jugular central venous catheter ar e overlying appropriate positions. Heart is enlarged. Bibasilar increased density persists, the right hemidiaphragm is obscured in the interval. No evident pneumothorax. Central vascularity is prominent , there is perihilar airspace disease. IMPRESSION: Correlate for congestive heart failure and pleural effusions, there may be basilar edema versus atelectasis, pneumonia not excluded. Follow-up recommended.
--- NOTE | 2018-09-15 09:40 | P.PN ---
Subjective Progress Note Date: 09/15/18 On 09/14/2018, I am seeing this patient for a follow-up in the intensive care unit. The patient was in following a massive but the pulmonary embolism, right ventricular enlargement and right ventricular strain pattern with subsequent hemodynamic collapse and cardiac arrest. The patient is post TPA infusion at time of the code. The patient is currently on IV heparin. In terms of his breathing, the patient is intubated on a mechanical ventilator. The patient is currently on an assist-control mode at the rate of 32 with a tidal volume of 500 and FiO2 of 50% with a PEEP of 10. The chest x-ray from today shows adequate positioning of 82. There is some atelectatic changes and infiltration of the right lung base. Meanwhile, the blood gases from today showed a pH of 7.32 with a pCO2 of 48 and pO2 of 116 and this was done on the above-mentioned ventilator settings. No significant orotracheal secretions. Breath other are equal and bilateral. Airway pressures are not elevated. Hemodynamically, the patient is on pressors at 3 mics of norepinephrine infusion for blood pressure support. He has been aggressively resuscitated IV fluids and a noted significant amount of weight gain over the past several days. The patient was given a dose of Lasix yesterday. In addition the patient was having episodes of SVTs throughout his current hospitalization and he was treated with adenosine and currently is on amiodarone orally 5 mg by mouth twice a day and his cardiac rhythm is normalized and his in sinus rhythm. Echocardiogram, the patient has an ejection fraction of 6065%. The rhythm to Doxil septal motion abnormality consistent with right ventricular volume/strain pattern. Of interest also is development of acute kidney injury. The patient came in initially with a normal renal function. Subsequently creatinine came up to 1.7 and currently is up to 2.41. He was given a dose of Lasix yesterday and none since yesterday. The patient is nonoliguric. The net fluid balance over the past 24 hours is +825 mL. He is having loose liquidy bowel movement. He is currently on vital 1.2 at the rate of 35 mL an hour. He is sedated with Diprivan. Lower oximetry is a swallow with extensive swelling of the right lower extremity which also has a DVT. The patient is having on and off low- grade fever and the patient is currently on IV Ancef. Most recent hemoglobin is at 8.0. White cell count is not elevated at 7.1. He remains on IV heparin regarding the massive bilateral pulmonary embolism. On 09/15/2018 I'm seeing this patient in follow-up in the intensive care unit. This morning the patient remains sedated on Diprivan, comfortable. A sedation holiday was given to this patient yesterday now was told that he was able to follow commands and his mentation seems to be intact despite his cardiac arrest. The patient remains sedated for this morning. Intubated on a mechanical ventilator. He is an assist-control mode of ventilation at the rate of 32 with a tidal volume of 500 and an FiO2 of 50% and PEEP of 7. Morning blood gases showed a pH of 7.35 with a pCO2 of 41 and pO2 of 124. Chest x-ray shows smaller lung volumes. There is evidence of better pleural effusion and pulmonary vessel congestion. ET tube is in a good location. No significant orotracheal secretions. The patient has been significant volume overload since admission to the hospital. I checked his fluid balance since admission and the patient has been is significant amount of positive fluid balance due to fluid resuscitation. Echo of the heart showed a preserved LV function yet the patient had a component of RV strain/overload related to his recent pulmonary embolism. I don't think this patient's chronic pulmonary hypertension. I do not think the patient has obesity hypoventilation syndrome knowing that his serum bicarb was low and within normal limits at a time of admission. In any rate, there is a component of fluid overload and the patient would benefit from diuresis. I did not diuresis patient yesterday based on the fact that the creatinine was on the rise. I'm awaiting follow-up creatinine levels from today and nephrology has also been consult on the case. He is afebrile for today. No leukocytosis. Hemoglobin stable at 7.5. Is tolerating his tube feeds. Massive edema lower extremity is bilaterally more so on the right. Cardiac rhythm remains sinus. No other significant events overnight. Antibiotic as an broadened and IV Ancef was discontinued yesterday and patient is currently on IV Zosyn. Objective - Vital Signs Vital signs: Vital Signs Temp 98.9 F 09/15/18 08:00 Pulse 76 09/15/18 09:00 Resp 32 H 09/15/18 09:00 BP 126/60 09/13/18 19:00 Pulse Ox 100 09/15/18 09:00 Intake & Output 09/14/18 09/15/18 09/15/18 18:59 06:59 18:59 Intake Total 4123.060 2907 277.695 Output Total 422 385 90 Balance 1060.460 653 187.695 Weight 164.3 kg 165.2 kg Intake: IV 274 338 52 Pressure bag 54 78 12 Sodium Chloride 0.9% 1, 220 260 40 000 ml @ 20 mls/hr IV . Q24H [facility] Rx#:[id number] Intake, IV Titration 1023.460 700 54.695 Amount Heparin Sod,Pork in 0.45% 500 500 54.695 NaCl 25,000 unit In 0.45 % NaCl 1 500ml.bag @ 14.9 UNITS/KG/HR 45.95 mls/hr IV .[id number] [facility] Rx#: [id number] Norepinephrine 16 mg In 70.561 Sodium Chloride 0.9% 250 ml @ Titrate IV .Q0M [facility] Rx#:[id number] Potassium Chloride 10 meq 100 In Water For Injection 1 100ml.bag @ 100 mls/hr IVPB Q1H [facility] Rx#: [id number] Propofol 1,000 mg In 352.899 200 Empty Bag 1 bag @ Titrate IV .Q0M [facility] Rx#: [id number] Tube Feeding 185 111 Other 60 Output: Urine 422 385 90 Other: Voiding Method Indwelling Catheter Indwelling Catheter # Voids 1 ABP, PAP, CO, CI - Last Documented Arterial Blood Pressure 135/55 - Exam No acute distress, sedated, orally placed endotracheal tube and NG tube. No or minimal blood noted in the NG tube and certainly no bleeding from the mouth at this time. HEENT examination is grossly unremarkable. Mucous membranes are moist. Neck supple. Full range of motion. No adenopathy thyromegaly or neck vein distention. The patient has a triple-lumen catheter in his neck left IJ area. Cardiovascular examination reveals regular rhythm rate. S1-S2 normal. No S3 or S4. No discernible murmur noted. Heart sounds are distant. Heart rate is100. Lungs reveal coarse bilateral breath sounds. Crackles are noted bilaterally in our bit worse today. Diffuse rhonchi are appreciated. No wheezes. Breath sounds are diminished throughout. Breath sounds are equal bilaterally. Abdomen is obese. Bowel sounds are noted. No masses appreciated.Abdominal exam revealed normal bowel sounds. The abdomen was soft, non-tender, and without masses, organomegaly, or appreciable enlargement of the abdominal aorta. Extremities. There is some chronic venous stasis changes. There is some pitting. Some mild livedo reticularis. Note that the right lower extremity is more swollen compared to the left. This is 2 pitting edema in the right lower extremity. Skin is reveal some chronic venous stasis changes. Neurologic examination could not be adequately assessed as the patient is currently sedated. The patient was given a sedation holiday over the past 24 hours and the patient was told to be arousing and following some simple commands. - Labs CBC & Chem 7: 09/15/18 04:12 09/14/18 10:11 Labs: Abnormal Lab Results - Last 24 Hours (Table) 09/14/18 09/14/18 09/14/18 Range/Units 10:11 11:23 17:01 WBC (3.8-10.6) k/uL RBC (4.30-5.90) m/uL Hgb (13.0-17.5) gm/dL Hct (39.0-53.0) % APTT (22.0-30.0) sec ABG pO2 (83-108) mmHg ABG O2 Saturation (94-97) % Chloride 110 H (98-107) mmol/L BUN 27 H (9-20) mg/dL Creatinine 2.64 H (0.66-1.25) mg/dL Glucose 139 H (74-99) mg/dL POC Glucose (mg/dL) 139 H 121 H (75-99) mg/dL Calcium 8.1 L (8.4-10.2) mg/dL ALT 87 H (21-72) U/L Total Protein 5.0 L (6.3-8.2) g/dL Albumin 2.4 L (3.5-5.0) g/dL 09/14/18 09/14/18 09/15/18 Range/Units 20:22 23:57 04:12 WBC 10.8 H (3.8-10.6) k/uL RBC 2.45 L (4.30-5.90) m/uL Hgb 7.6 L (13.0-17.5) gm/dL Hct 23.4 L (39.0-53.0) % APTT 38.8 H (22.0-30.0) sec ABG pO2 (83-108) mmHg ABG O2 Saturation (94-97) % Chloride (98-107) mmol/L BUN (9-20) mg/dL Creatinine (0.66-1.25) mg/dL Glucose (74-99) mg/dL POC Glucose (mg/dL) 134 H (75-99) mg/dL Calcium (8.4-10.2) mg/dL ALT (21-72) U/L Total Protein (6.3-8.2) g/dL Albumin (3.5-5.0) g/dL 09/15/18 09/15/18 09/15/18 Range/Units 04:12 04:32 05:58 WBC 12.2 H (3.8-10.6) k/uL RBC 2.38 L (4.30-5.90) m/uL Hgb 7.5 L (13.0-17.5) gm/dL Hct 22.9 L (39.0-53.0) % APTT (22.0-30.0) sec ABG pO2 124 H (83-108) mmHg ABG O2 Saturation 100.0 H (94-97) % Chloride (98-107) mmol/L BUN (9-20) mg/dL Creatinine (0.66-1.25) mg/dL Glucose (74-99) mg/dL POC Glucose (mg/dL) 119 H (75-99) mg/dL Calcium (8.4-10.2) mg/dL ALT (21-72) U/L Total Protein (6.3-8.2) g/dL Albumin (3.5-5.0) g/dL Microbiology - Last 24 Hours (Table) 09/12/18 01:35 Blood Culture - Preliminary Blood No Growth after 72 hours 09/12/18 01:15 Gram Stain - Final Sputum Sputum Culture - Final Assessment and Plan Plan: Assessment 1 acute hypoxic respiratory failure secondary to massive bilateral pulmonary embolism, status post cardiac pulmonary arrest, status post TPA treatment, currently on IV heparin. The patient remains intubated on a mechanical ventilator. He remains hypoxic and the chest x-ray from today still showing signs of fluid overload and CHF are better pleural effusion and interstitial edema. 2 acute respiratory failure secondary to above, currently intubated on a mechanical ventilator, secondary to above 3 massive pulmonary embolism with right ventricular strain and dilatation with subsequent cardiac arrest, without clear evidence of any anoxic or hypoxic encephalopathy 4 acute cardio-pulmonary arrest secondary to massive PE, post TPA administration 5 acute hypotension,, currently on pressors at 2 mics of norepinephrine infusion for blood pressure support. Echo is showing a preserved LV function 6 acute kidney injury with a creatinine up to 2.4, nonoliguric, awaiting follow- up creatinine and renal function from today 7 acute DVT of the right lower extremity 8 morbid obesity with a BMI of 46.5 9 history of smoking 10 history of anxiety 11 chronic anemia with a hemoglobin of 7.5 12 right lower lobe pneumonia suspected, possibly of an aspiration type 13 episodes of SVT, currently in sinus rhythm 14 morbid obesity with a BMI of 46.8 Plan Continue vent support. Suggested being respiratory rate down to 26 as the patient is riding the vent and I would like him to at least triggered the mechanical ventilator. Will drop the FiO2 down to 40% and he is able to tolerate that we'll bring down the PEEP to 5. Awaiting the follow-up blood work and of interest the renal function. Meanwhile, the patient is not oliguric and I think he would benefit from a Lasix drip and he will be started on Lasix drip at 10 mg an hour. We will monitor his fluid balance and urine output and supplement his blood pressure with norepinephrine infusion if he develops any hypotension. Echo of the heart showed a preserved LV function. Continue IV heparin. Continue IV Zosyn. Continue tube feeds. Continue sedation. Monitor hemoglobin. Watch for any signs of GI bleed. Nephrology is on the case. We'll continue to follow make further recommendations based on his progress. There is a critically care evaluation that was done in 35 minutes. Time with Patient: Greater than 30
[2018-09-15 09:50] LABS: Calcium 8.3 mg/dL (8.4-10.2); Potassium 3.5 mmol/L (3.5-5.1)
[2018-09-15] MEDS: FUROSEMIDE 250 MG in SODIUM CHLORIDE 0.9% 225 ML IVP SCH (10:03)
--- NOTE | 2018-09-15 10:45 | P.PN ---
Subjective Patient is seen in follow-up for acute kidney injury. His pacing creatinine is 1. Renal function is worsening with creatinine up to 3.56 today. Patient is on IV heparin for bilateral pulmonary embolism. He also suffered 2 episodes of cardiopulmonary arrest on September 09. He is currently intubated and sedated. Chest x-ray suggestive of vascular congestion. He also has significant lower extremity edema. He was started on Lasix drip at 10 mL an hour this morning. He is currently on 2 mics of Levophed. Urine output has improved and is about 45 mL an hour now. Vital signs are stable. On 12 mics of Levophed. General: The patient appeared well nourished and normally developed. HEENT: Head exam is unremarkable. Neck is without jugular venous distension. Intubated. LUNGS: Breath sounds decreased. HEART: Rate and Rhythm are regular. First and second heart sounds normal. No murmurs, rubs or gallops. ABDOMEN: Abdominal exam reveals normal bowel sounds. Non-tender and non- distended. No evidence of peritonitis. EXTREMITITES: 2+ edema. Chronic skin changes noted. Objective - Vital Signs Vital signs: Vital Signs Temp 98.9 F 09/15/18 08:00 Pulse 78 09/15/18 10:00 Resp 27 H 09/15/18 10:00 BP 126/60 09/13/18 19:00 Pulse Ox 100 09/15/18 10:00 Intake & Output 09/14/18 09/15/18 09/15/18 18:59 06:59 18:59 Intake Total 7210.053 1586 500.695 Output Total 422 385 135 Balance 1060.460 653 365.695 Weight 164.3 kg 165.2 kg Intake: IV 274 338 78 Pressure bag 54 78 18 Sodium Chloride 0.9% 1, 220 260 60 000 ml @ 20 mls/hr IV . Q24H [facility] Rx#:[id number] Intake, IV Titration 1023.460 700 214.695 Amount Furosemide 250 mg In 10 Sodium Chloride 0.9% 225 ml @ 10 MG/HR 10 mls/hr IVP .Q24H [facility] Rx#: [id number] Heparin Sod,Pork in 0.45% 500 500 54.695 NaCl 25,000 unit In 0.45 % NaCl 1 500ml.bag @ 14.9 UNITS/KG/HR 45.95 mls/hr IV .[id number] [facility] Rx#: [id number] Norepinephrine 16 mg In 70.561 Sodium Chloride 0.9% 250 ml @ Titrate IV .Q0M [facility] Rx#:[id number] Piperacillin-Tazobactam 3 50 .375 gm In Dextrose/Water 1 50ml.bag @ 12.5 mls/hr IVPB Q8H [facility] Rx#: [id number] Potassium Chloride 10 meq 100 In Water For Injection 1 100ml.bag @ 100 mls/hr IVPB Q1H [facility] Rx#: [id number] Propofol 1,000 mg In 352.899 200 100 Empty Bag 1 bag @ Titrate IV .Q0M [facility] Rx#: [id number] Tube Feeding 185 148 Other 60 Output: Urine 422 385 135 Other: Voiding Method Indwelling Catheter Indwelling Catheter # Voids 1 ABP, PAP, CO, CI - Last Documented Arterial Blood Pressure 131/54 - Labs CBC & Chem 7: 09/15/18 04:12 09/15/18 09:10 Labs: Abnormal Lab Results - Last 24 Hours (Table) 09/14/18 09/14/18 09/14/18 Range/Units 10:11 11:23 17:01 WBC (3.8-10.6) k/uL RBC (4.30-5.90) m/uL Hgb (13.0-17.5) gm/dL Hct (39.0-53.0) % APTT (22.0-30.0) sec ABG pO2 (83-108) mmHg ABG O2 Saturation (94-97) % Chloride 110 H (98-107) mmol/L BUN 27 H (9-20) mg/dL Creatinine 2.64 H (0.66-1.25) mg/dL Glucose 139 H (74-99) mg/dL POC Glucose (mg/dL) 139 H 121 H (75-99) mg/dL Calcium 8.1 L (8.4-10.2) mg/dL ALT 87 H (21-72) U/L Total Protein 5.0 L (6.3-8.2) g/dL Albumin 2.4 L (3.5-5.0) g/dL 09/14/18 09/14/18 09/15/18 Range/Units 20:22 23:57 04:12 WBC 10.8 H (3.8-10.6) k/uL RBC 2.45 L (4.30-5.90) m/uL Hgb 7.6 L (13.0-17.5) gm/dL Hct 23.4 L (39.0-53.0) % APTT 38.8 H (22.0-30.0) sec ABG pO2 (83-108) mmHg ABG O2 Saturation (94-97) % Chloride (98-107) mmol/L BUN (9-20) mg/dL Creatinine (0.66-1.25) mg/dL Glucose (74-99) mg/dL POC Glucose (mg/dL) 134 H (75-99) mg/dL Calcium (8.4-10.2) mg/dL ALT (21-72) U/L Total Protein (6.3-8.2) g/dL Albumin (3.5-5.0) g/dL 09/15/18 09/15/18 09/15/18 Range/Units 04:12 04:32 05:58 WBC 12.2 H (3.8-10.6) k/uL RBC 2.38 L (4.30-5.90) m/uL Hgb 7.5 L (13.0-17.5) gm/dL Hct 22.9 L (39.0-53.0) % APTT (22.0-30.0) sec ABG pO2 124 H (83-108) mmHg ABG O2 Saturation 100.0 H (94-97) % Chloride (98-107) mmol/L BUN (9-20) mg/dL Creatinine (0.66-1.25) mg/dL Glucose (74-99) mg/dL POC Glucose (mg/dL) 119 H (75-99) mg/dL Calcium (8.4-10.2) mg/dL ALT (21-72) U/L Total Protein (6.3-8.2) g/dL Albumin (3.5-5.0) g/dL 09/15/18 Range/Units 09:10 WBC (3.8-10.6) k/uL RBC (4.30-5.90) m/uL Hgb (13.0-17.5) gm/dL Hct (39.0-53.0) % APTT (22.0-30.0) sec ABG pO2 (83-108) mmHg ABG O2 Saturation (94-97) % Chloride (98-107) mmol/L BUN 46 H (9-20) mg/dL Creatinine 3.56 H (0.66-1.25) mg/dL Glucose 119 H (74-99) mg/dL POC Glucose (mg/dL) (75-99) mg/dL Calcium 8.3 L (8.4-10.2) mg/dL ALT (21-72) U/L Total Protein (6.3-8.2) g/dL Albumin (3.5-5.0) g/dL Microbiology - Last 24 Hours (Table) 09/12/18 01:35 Blood Culture - Preliminary Blood No Growth after 72 hours 09/12/18 01:15 Gram Stain - Final Sputum Sputum Culture - Final Assessment and Plan Plan: Assessment: 1. Acute kidney injury secondary to ATN secondary to hypotension and hemodynamic instability. Baseline creatinine is 1 and elevated at 3.56 today. No evidence of hydronephrosis noted on renal ultrasound. 2. Bilateral pulmonary embolism status post TPA maintained on IV heparin. 3. Right lower extremity DVT. 4. Hypotension maintained on 2 mics of Levophed. Cortisol level normal. 5. Acute hypoxic respiratory failure secondary to PE. 6. Hyperphosphatemia secondary to acute kidney injury. 7. SVT now in sinus rhythm. Cardiology following. 8. Volume overload. Plan: Maintain Lasix drip at 10 mL an hour. Maintain tube feeds. Avoid nephrotoxins. Continue to monitor renal function and urine output.
[2018-09-15] MEDS ORDERED: POTASSIUM BICARBONATE/CIT AC 20 MEQ TABLET.EFF NG-TUBE ONE (11:00)
[2018-09-15 12:04] LABS: Glucose,Whole Blood 125 mg/dL (75-99)
[2018-09-15] MEDS: MULTIVITAMINS, THERA 1 EACH TAB PO SCH (12:34)
[2018-09-15] MEDS: SODIUM CHLORIDE 0.9% 1,000 ML IV SCH (14:21)
[2018-09-15] MEDS: NOREPINEPHRINE 16 MG in SODIUM CHLORIDE 0.9% 250 ML IV SCH (14:21)
[2018-09-15 18:07] LABS: Glucose,Whole Blood 121 mg/dL (75-99)
[2018-09-16 00:03] LABS: Glucose,Whole Blood 146 mg/dL (75-99)
[2018-09-16] MEDS: HEPARIN SOD,PORK IN 0.45% NACL 25,000 UNIT in 0.45% NACL 1 500ML.BAG IV SCH ×3 (01:29→22:02)
[2018-09-16] MEDS: INSULIN ASPART 100 UNIT/ML 1 ML 10 ML VIAL SQ SCH ×5 (01:29→23:46)
[2018-09-16] MEDS: PIPERACILLIN-TAZOBACTAM 3.375 GM in DEXTROSE/WATER 1 50ML.BAG IVPB SCH ×3 (01:30→18:21)
[2018-09-16] MEDS: PROPOFOL 1,000 MG in EMPTY BAG 1 BAG IV SCH ×10 (01:33→21:49)
[2018-09-16] MEDS: IPRATROPIUM-ALBUTEROL 3 ML NEB INHALATION SCH ×6 (03:16→23:10)
[2018-09-16 05:03] LABS: ABG Base Excess -5.2 mmol/L; ABG HCO3 21 mmol/L (21-25); ABG Oxygen Saturation 98.2 % (94-97); ABG PCO2 45 mmHg (35-45); ABG PH 7.29 (7.35-7.45); ABG PO2 107 mmHg (83-108); ABG TCO2 23 mmol/L (19-24)
[2018-09-16 05:37] LABS: Hypochromasia Slight; MCH 31.1 pg (25.0-35.0); MCHC 31.8 g/dL (31.0-37.0); MCV 97.7 fL (80.0-100.0); Platelet Count 290 k/uL (150-450); RBC 1.91 m/uL (4.30-5.90); RDW 14.1 % (11.5-15.5); WBC 11.2 k/uL (3.8-10.6)
[2018-09-16] MEDS: FUROSEMIDE 250 MG in SODIUM CHLORIDE 0.9% 225 ML IVP SCH ×2 (05:48→23:45)
[2018-09-16 05:51] LABS: HCT 18.7 % (39.0-53.0)
[2018-09-16 05:54] LABS: HGB 5.9 gm/dL (13.0-17.5)
[2018-09-16 06:31] LABS: Calcium 7.6 mg/dL (8.4-10.2); Magnesium 2.4 mg/dL (1.6-2.3); Phosphorus 7.1 mg/dL (2.5-4.5); Potassium 4.3 mmol/L (3.5-5.1)
[2018-09-16 06:43] LABS: Band Neutrophils % 11 %; Eosinophils # (M) 0.22 k/uL (0-0.7); Lymphocytes # (M) 0.34 k/uL (1.0-4.8); Metamyelocytes # (M) 0.67 k/uL (0); Metamyelocytes % 6 %; Monocytes # (M) 0.45 k/uL (0-1.0); Myelocytes # (M) 0.78 k/uL (0); Myelocytes % 7 %; Neutrophils % (M) 67 %; Nucleated Red Blood Cells 0 /100 WBC (0-0); Total Cells Counted 100
[2018-09-16 06:52] LABS: Glucose,Whole Blood 121 mg/dL (75-99)
--- NOTE | 2018-09-16 07:51 | P.PN ---
Subjective Progress Note Date: 09/16/18 Principal diagnosis: Pulmonary embolization This is a pleasant 52-year-old gentleman with a past medical history significant for DVT and PE was admitted to the hospital with shortness of breath and was diagnosed with massive bilateral PE. The patient coded twice with PDA and he received CPR per protocol. He did also received TPA. On follow-up with the patient today, September 162017, he continues to be intubated on mechanical ventilation. He is off Levothroid. He was started on Lasix drip yesterday with a chest x-ray today showing some improvement. Unfortunately the hemoglobin came in to be around 5 and the patient is in process of receiving 2 units of packed RBC. Nephrology on the case regarding the acute renal failure. Beside that he has been maintaining normal sinus mechanism. I think we should stop the heparin in view of the severe anemia. Objective - Vital Signs Vital signs: Vital Signs Temp 98.4 F 09/16/18 00:00 Pulse 80 09/16/18 07:00 Resp 29 H 09/16/18 07:00 BP 126/60 09/13/18 19:00 Pulse Ox 94 L 09/16/18 07:00 Intake & Output 09/15/18 09/16/18 09/16/18 18:59 06:59 18:59 Intake Total 2092.805 2087.968 73 Output Total 695 555 50 Balance 1166.268 7634.968 23 Weight 167.1 kg Intake: IV 312 396 36 Furosemide 250 mg In 110 10 Sodium Chloride 0.9% 225 ml @ 10 MG/HR 10 mls/hr IVP .Q24H [facility] Rx#: [id number] Pressure bag 72 66 6 Sodium Chloride 0.9% 1, 240 220 20 000 ml @ 20 mls/hr IV . Q24H [facility] Rx#:[id number] Intake, IV Titration 9759.847 9453.968 Amount Furosemide 250 mg In 100 197.5 Sodium Chloride 0.9% 225 ml @ 10 MG/HR 10 mls/hr IVP .Q24H [facility] Rx#: [id number] Heparin Sod,Pork in 0.45% 415.510 500 NaCl 25,000 unit In 0.45 % NaCl 1 500ml.bag @ 14.9 UNITS/KG/HR 45.95 mls/hr IV .[id number] [facility] Rx#: [id number] Norepinephrine 16 mg In 0.295 Sodium Chloride 0.9% 250 ml @ Titrate IV .Q0M [facility] Rx#:[id number] Piperacillin-Tazobactam 3 100 .375 gm In Dextrose/Water 1 50ml.bag @ 12.5 mls/hr IVPB Q8H [facility] Rx#: [id number] Propofol 1,000 mg In 400.000 497.468 Empty Bag 1 bag @ Titrate IV .Q0M [facility] Rx#: [id number] Oral 0 Tube Feeding 555 259 37 Other 210 238 Output: Urine 695 555 50 Other: Voiding Method Indwelling Catheter Indwelling Catheter ABP, PAP, CO, CI - Last Documented Arterial Blood Pressure 113/51 - Constitutional General appearance: Present: no acute distress - Labs CBC & Chem 7: 09/16/18 05:00 09/16/18 05:00 Labs: Abnormal Lab Results - Last 24 Hours (Table) 09/15/18 09/15/18 09/15/18 Range/Units 09:10 12:03 12:25 WBC (3.8-10.6) k/uL RBC (4.30-5.90) m/uL Hgb (13.0-17.5) gm/dL Hct (39.0-53.0) % Neutrophils # (Manual) (1.3-7.7) k/uL Lymphocytes # (Manual) (1.0-4.8) k/uL Metamyelocytes # (Man) (0) k/uL Myelocytes # (Manual) (0) k/uL APTT 47.3 H (22.0-30.0) sec ABG pH (7.35-7.45) ABG O2 Saturation (94-97) % Sodium (137-145) mmol/L Carbon Dioxide (22-30) mmol/L BUN 46 H (9-20) mg/dL Creatinine 3.56 H (0.66-1.25) mg/dL Glucose 119 H (74-99) mg/dL POC Glucose (mg/dL) 125 H (75-99) mg/dL Calcium 8.3 L (8.4-10.2) mg/dL Phosphorus (2.5-4.5) mg/dL Magnesium (1.6-2.3) mg/dL 09/15/18 09/16/18 09/16/18 Range/Units 18:04 00:02 04:58 WBC (3.8-10.6) k/uL RBC (4.30-5.90) m/uL Hgb (13.0-17.5) gm/dL Hct (39.0-53.0) % Neutrophils # (Manual) (1.3-7.7) k/uL Lymphocytes # (Manual) (1.0-4.8) k/uL Metamyelocytes # (Man) (0) k/uL Myelocytes # (Manual) (0) k/uL APTT (22.0-30.0) sec ABG pH 7.29 L (7.35-7.45) ABG O2 Saturation 98.2 H (94-97) % Sodium (137-145) mmol/L Carbon Dioxide (22-30) mmol/L BUN (9-20) mg/dL Creatinine (0.66-1.25) mg/dL Glucose (74-99) mg/dL POC Glucose (mg/dL) 121 H 146 H (75-99) mg/dL Calcium (8.4-10.2) mg/dL Phosphorus (2.5-4.5) mg/dL Magnesium (1.6-2.3) mg/dL 09/16/18 09/16/18 09/16/18 Range/Units 05:00 05:00 05:00 WBC 11.2 H (3.8-10.6) k/uL RBC 1.91 L (4.30-5.90) m/uL Hgb 5.9 L* D (13.0-17.5) gm/dL Hct 18.7 L* (39.0-53.0) % Neutrophils # (Manual) 8.70 H (1.3-7.7) k/uL Lymphocytes # (Manual) 0.34 L (1.0-4.8) k/uL Metamyelocytes # (Man) 0.67 H (0) k/uL Myelocytes # (Manual) 0.78 H (0) k/uL APTT 50.0 H (22.0-30.0) sec ABG pH (7.35-7.45) ABG O2 Saturation (94-97) % Sodium 136 L (137-145) mmol/L Carbon Dioxide 18 L (22-30) mmol/L BUN 57 H (9-20) mg/dL Creatinine 3.89 H (0.66-1.25) mg/dL Glucose 105 H (74-99) mg/dL POC Glucose (mg/dL) (75-99) mg/dL Calcium 7.6 L (8.4-10.2) mg/dL Phosphorus 7.1 H (2.5-4.5) mg/dL Magnesium 2.4 H (1.6-2.3) mg/dL 09/16/18 Range/Units 06:51 WBC (3.8-10.6) k/uL RBC (4.30-5.90) m/uL Hgb (13.0-17.5) gm/dL Hct (39.0-53.0) % Neutrophils # (Manual) (1.3-7.7) k/uL Lymphocytes # (Manual) (1.0-4.8) k/uL Metamyelocytes # (Man) (0) k/uL Myelocytes # (Manual) (0) k/uL APTT (22.0-30.0) sec ABG pH (7.35-7.45) ABG O2 Saturation (94-97) % Sodium (137-145) mmol/L Carbon Dioxide (22-30) mmol/L BUN (9-20) mg/dL Creatinine (0.66-1.25) mg/dL Glucose (74-99) mg/dL POC Glucose (mg/dL) 121 H (75-99) mg/dL Calcium (8.4-10.2) mg/dL Phosphorus (2.5-4.5) mg/dL Magnesium (1.6-2.3) mg/dL Microbiology - Last 24 Hours (Table) 09/12/18 01:35 Blood Culture - Preliminary Blood No Growth after 96 hours Assessment and Plan Assessment: Assessment Massive PE History of DVT PE in the past Morbid obesity Status post cardiopulmonary arrest Plan Continue amiodarone by mouth Continue monitor the hemoglobin. The patient is in process of receiving 2 units of packed RBC. Try to wean him from the Levothroid The prognosis is very poor. The patient might benefit from IV Lasix to challenge him Follow-up with the patient
[2018-09-16] MEDS: CHLORHEXIDINE GLUCONATE 15 ML CUP MUCOUS MEM SCH ×2 (08:57→21:49)
[2018-09-16] MEDS: PANTOPRAZOLE 40 MG/10 ML VIAL IVP SCH (08:57)
[2018-09-16] MEDS: AMIODARONE 200 MG TAB PO SCH ×2 (08:59→21:49)
--- NOTE | 2018-09-16 09:34 | XR ---
EXAMINATION TYPE: XR chest 1V portable DATE OF EXAM: 09/16/2018 COMPARISON: 09/15/2018 HISTORY: Tube placement FINDINGS: There are bilateral pleural effusions with cardiomegaly and bibasilar infiltrate. There is a diffuse interstitial pattern. ET and NG tube stable. Left-sided PICC line noted. No pneumothorax. IMPRESSION: 1. Bilateral consolidation and pleural effusion. Correlate for pulmonary edema versus diffuse pneumon ia. No interval change.
--- NOTE | 2018-09-16 10:28 | P.PN ---
Subjective Progress Note Date: 09/16/18 On 09/14/2018, I am seeing this patient for a follow-up in the intensive care unit. The patient was in following a massive but the pulmonary embolism, right ventricular enlargement and right ventricular strain pattern with subsequent hemodynamic collapse and cardiac arrest. The patient is post TPA infusion at time of the code. The patient is currently on IV heparin. In terms of his breathing, the patient is intubated on a mechanical ventilator. The patient is currently on an assist-control mode at the rate of 32 with a tidal volume of 500 and FiO2 of 50% with a PEEP of 10. The chest x-ray from today shows adequate positioning of 82. There is some atelectatic changes and infiltration of the right lung base. Meanwhile, the blood gases from today showed a pH of 7.32 with a pCO2 of 48 and pO2 of 116 and this was done on the above-mentioned ventilator settings. No significant orotracheal secretions. Breath other are equal and bilateral. Airway pressures are not elevated. Hemodynamically, the patient is on pressors at 3 mics of norepinephrine infusion for blood pressure support. He has been aggressively resuscitated IV fluids and a noted significant amount of weight gain over the past several days. The patient was given a dose of Lasix yesterday. In addition the patient was having episodes of SVTs throughout his current hospitalization and he was treated with adenosine and currently is on amiodarone orally 5 mg by mouth twice a day and his cardiac rhythm is normalized and his in sinus rhythm. Echocardiogram, the patient has an ejection fraction of 6065%. The rhythm to Doxil septal motion abnormality consistent with right ventricular volume/strain pattern. Of interest also is development of acute kidney injury. The patient came in initially with a normal renal function. Subsequently creatinine came up to 1.7 and currently is up to 2.41. He was given a dose of Lasix yesterday and none since yesterday. The patient is nonoliguric. The net fluid balance over the past 24 hours is +825 mL. He is having loose liquidy bowel movement. He is currently on vital 1.2 at the rate of 35 mL an hour. He is sedated with Diprivan. Lower oximetry is a swallow with extensive swelling of the right lower extremity which also has a DVT. The patient is having on and off low- grade fever and the patient is currently on IV Ancef. Most recent hemoglobin is at 8.0. White cell count is not elevated at 7.1. He remains on IV heparin regarding the massive bilateral pulmonary embolism. On 09/15/2018 I'm seeing this patient in follow-up in the intensive care unit. This morning the patient remains sedated on Diprivan, comfortable. A sedation holiday was given to this patient yesterday now was told that he was able to follow commands and his mentation seems to be intact despite his cardiac arrest. The patient remains sedated for this morning. Intubated on a mechanical ventilator. He is an assist-control mode of ventilation at the rate of 32 with a tidal volume of 500 and an FiO2 of 50% and PEEP of 7. Morning blood gases showed a pH of 7.35 with a pCO2 of 41 and pO2 of 124. Chest x-ray shows smaller lung volumes. There is evidence of better pleural effusion and pulmonary vessel congestion. ET tube is in a good location. No significant orotracheal secretions. The patient has been significant volume overload since admission to the hospital. I checked his fluid balance since admission and the patient has been is significant amount of positive fluid balance due to fluid resuscitation. Echo of the heart showed a preserved LV function yet the patient had a component of RV strain/overload related to his recent pulmonary embolism. I don't think this patient's chronic pulmonary hypertension. I do not think the patient has obesity hypoventilation syndrome knowing that his serum bicarb was low and within normal limits at a time of admission. In any rate, there is a component of fluid overload and the patient would benefit from diuresis. I did not diuresis patient yesterday based on the fact that the creatinine was on the rise. I'm awaiting follow-up creatinine levels from today and nephrology has also been consult on the case. He is afebrile for today. No leukocytosis. Hemoglobin stable at 7.5. Is tolerating his tube feeds. Massive edema lower extremity is bilaterally more so on the right. Cardiac rhythm remains sinus. No other significant events overnight. Antibiotic as an broadened and IV Ancef was discontinued yesterday and patient is currently on IV Zosyn. On 09/16/2018, I'm seeing this patient for a follow-up. The patient remains sedated on Diprivan. The patient admits intubated on a mechanical ventilator. On today's evaluation, the patient is on a 50 mics of Diprivan for sedation. He is receiving enteral feeding for nutritional support. He has demonstrated drop in hemoglobin down to 5.9 yet, there is no evidence of any exogenous bleeding. There is no evidence of any melanotic stool or any bloody output from the orotracheal tube or the NG tube. A total of 2 units of packed RBC was ordered. The patient was kept on IV heparin and PTT is therapeutic at 50. Also , the patient is still on a mechanical ventilator. Vent settings today include an assist-control mode at the rate of 26, FiO2 of 50%, PEEP of 7 and tidal volume of 500. The blood gases from today showed a pH of 7.29 with a pCO2 of 45 and pO2 of 107. Obviously the patient has a component of mild acidosis which is related to respiratory factors and metabolic factors as the patient's serum bicarb drip down to 18. The chest x-ray shows evidence of bilateral consolidation pleural effusion. There is evidence of pulmonary edema that is rather diffuse. ET tube and NG tube are both in a good location and the patient has a left-sided PICC line noted. Note that the patient was started on diuretics yesterday based on the fact that he was getting into significant positive fluid balance of fluid overload. Currently the patient on Lasix drip at 10 mg an hour. Urine output is improved, however the patient is still producing a low urine output around 30 mL an hour and the net fluid balance is positive and has been consistent positive over the past 1 week. He demonstrated signs of fluid overload the massive edema both in the upper and lower extremities more so in the right lower extremity. His renal function is impaired. The patient suffered an acute kidney injury. This is felt to be related to an ATN post cardiac arrest and possibly some contribution from contrast administration. The creatinine is up to 3.8 with a BUN of 57. The rest of the I's show a mild component of non-anion gap metabolic acidosis. He is afebrile. Is covered empirically with IV Zosyn for any possible aspiration pneumonia. No other significant events overnight. He is taken off pressors for now. Objective - Vital Signs Vital signs: Vital Signs Temp 98.5 F 09/16/18 09:43 Pulse 84 09/16/18 10:00 Resp 33 H 09/16/18 10:00 BP 126/55 09/16/18 09:43 Pulse Ox 91 L 09/16/18 10:00 Intake & Output 09/15/18 09/16/18 09/16/18 18:59 06:59 18:59 Intake Total 2092.805 2087.968 911.181 Output Total 695 555 195 Balance 7239.973 9667.968 716.181 Weight 167.1 kg Intake: IV 312 396 114 Furosemide 250 mg In 110 10 Sodium Chloride 0.9% 225 ml @ 10 MG/HR 10 mls/hr IVP .Q24H [facility] Rx#: [id number] Pressure bag 72 66 24 Sodium Chloride 0.9% 1, 240 220 80 000 ml @ 20 mls/hr IV . Q24H [facility] Rx#:[id number] Intake, IV Titration 9932.604 9683.968 619.181 Amount Furosemide 250 mg In 100 197.5 Sodium Chloride 0.9% 225 ml @ 10 MG/HR 10 mls/hr IVP .Q24H [facility] Rx#: [id number] Heparin Sod,Pork in 0.45% 415.510 500 458.883 NaCl 25,000 unit In 0.45 % NaCl 1 500ml.bag @ 14.9 UNITS/KG/HR 45.95 mls/hr IV .[id number] [facility] Rx#: [id number] Norepinephrine 16 mg In 0.295 Sodium Chloride 0.9% 250 ml @ Titrate IV .Q0M [facility] Rx#:[id number] Piperacillin-Tazobactam 3 100 .375 gm In Dextrose/Water 1 50ml.bag @ 12.5 mls/hr IVPB Q8H [facility] Rx#: [id number] Propofol 1,000 mg In 400.000 497.468 160.298 Empty Bag 1 bag @ Titrate IV .Q0M [facility] Rx#: [id number] Oral 0 Tube Feeding 555 259 148 Blood Product 0 Rc As-1 Unit 0 [id number] Other 210 238 30 Output: Urine 695 555 195 Other: Voiding Method Indwelling Catheter Indwelling Catheter Indwelling Catheter ABP, PAP, CO, CI - Last Documented Arterial Blood Pressure 132/57 - Exam No acute distress, sedated, orally placed endotracheal tube and NG tube. No or minimal blood noted in the NG tube and certainly no bleeding from the mouth at this time. HEENT examination is grossly unremarkable. Mucous membranes are moist. Neck supple. Full range of motion. No adenopathy thyromegaly or neck vein distention. The patient has a triple-lumen catheter in his neck left IJ area. Cardiovascular examination reveals regular rhythm rate. S1-S2 normal. No S3 or S4. No discernible murmur noted. Heart sounds are distant. Heart rate is100. Lungs reveal coarse bilateral breath sounds. Crackles are noted bilaterally in our bit worse today. Diffuse rhonchi are appreciated. No wheezes. Breath sounds are diminished throughout. Breath sounds are equal bilaterally. Abdomen is obese. Bowel sounds are noted. No masses appreciated.Abdominal exam revealed normal bowel sounds. The abdomen was soft, non-tender, and without masses, organomegaly, or appreciable enlargement of the abdominal aorta. Extremities. There is some chronic venous stasis changes. There is some pitting. Some mild livedo reticularis. Note that the right lower extremity is more swollen compared to the left. This is 2 pitting edema in the right lower extremity. Skin is reveal some chronic venous stasis changes. Neurologic examination could not be adequately assessed as the patient is currently sedated. The patient was given a sedation holiday over the past 24 hours and the patient was told to be arousing and following some simple commands. - Labs CBC & Chem 7: 09/16/18 05:00 09/16/18 05:00 Labs: Abnormal Lab Results - Last 24 Hours (Table) 09/15/18 09/15/18 09/15/18 Range/Units 12:03 12:25 18:04 WBC (3.8-10.6) k/uL RBC (4.30-5.90) m/uL Hgb (13.0-17.5) gm/dL Hct (39.0-53.0) % Neutrophils # (Manual) (1.3-7.7) k/uL Lymphocytes # (Manual) (1.0-4.8) k/uL Metamyelocytes # (Man) (0) k/uL Myelocytes # (Manual) (0) k/uL APTT 47.3 H (22.0-30.0) sec ABG pH (7.35-7.45) ABG O2 Saturation (94-97) % Sodium (137-145) mmol/L Carbon Dioxide (22-30) mmol/L BUN (9-20) mg/dL Creatinine (0.66-1.25) mg/dL Glucose (74-99) mg/dL POC Glucose (mg/dL) 125 H 121 H (75-99) mg/dL Calcium (8.4-10.2) mg/dL Phosphorus (2.5-4.5) mg/dL Magnesium (1.6-2.3) mg/dL Crossmatch 09/16/18 09/16/18 09/16/18 Range/Units 00:02 04:58 05:00 WBC (3.8-10.6) k/uL RBC (4.30-5.90) m/uL Hgb (13.0-17.5) gm/dL Hct (39.0-53.0) % Neutrophils # (Manual) (1.3-7.7) k/uL Lymphocytes # (Manual) (1.0-4.8) k/uL Metamyelocytes # (Man) (0) k/uL Myelocytes # (Manual) (0) k/uL APTT 50.0 H (22.0-30.0) sec ABG pH 7.29 L (7.35-7.45) ABG O2 Saturation 98.2 H (94-97) % Sodium (137-145) mmol/L Carbon Dioxide (22-30) mmol/L BUN (9-20) mg/dL Creatinine (0.66-1.25) mg/dL Glucose (74-99) mg/dL POC Glucose (mg/dL) 146 H (75-99) mg/dL Calcium (8.4-10.2) mg/dL Phosphorus (2.5-4.5) mg/dL Magnesium (1.6-2.3) mg/dL Crossmatch 09/16/18 09/16/18 09/16/18 Range/Units 05:00 05:00 06:20 WBC 11.2 H (3.8-10.6) k/uL RBC 1.91 L (4.30-5.90) m/uL Hgb 5.9 L* D (13.0-17.5) gm/dL Hct 18.7 L* (39.0-53.0) % Neutrophils # (Manual) 8.70 H (1.3-7.7) k/uL Lymphocytes # (Manual) 0.34 L (1.0-4.8) k/uL Metamyelocytes # (Man) 0.67 H (0) k/uL Myelocytes # (Manual) 0.78 H (0) k/uL APTT (22.0-30.0) sec ABG pH (7.35-7.45) ABG O2 Saturation (94-97) % Sodium 136 L (137-145) mmol/L Carbon Dioxide 18 L (22-30) mmol/L BUN 57 H (9-20) mg/dL Creatinine 3.89 H (0.66-1.25) mg/dL Glucose 105 H (74-99) mg/dL POC Glucose (mg/dL) (75-99) mg/dL Calcium 7.6 L (8.4-10.2) mg/dL Phosphorus 7.1 H (2.5-4.5) mg/dL Magnesium 2.4 H (1.6-2.3) mg/dL Crossmatch See Detail 09/16/18 Range/Units 06:51 WBC (3.8-10.6) k/uL RBC (4.30-5.90) m/uL Hgb (13.0-17.5) gm/dL Hct (39.0-53.0) % Neutrophils # (Manual) (1.3-7.7) k/uL Lymphocytes # (Manual) (1.0-4.8) k/uL Metamyelocytes # (Man) (0) k/uL Myelocytes # (Manual) (0) k/uL APTT (22.0-30.0) sec ABG pH (7.35-7.45) ABG O2 Saturation (94-97) % Sodium (137-145) mmol/L Carbon Dioxide (22-30) mmol/L BUN (9-20) mg/dL Creatinine (0.66-1.25) mg/dL Glucose (74-99) mg/dL POC Glucose (mg/dL) 121 H (75-99) mg/dL Calcium (8.4-10.2) mg/dL Phosphorus (2.5-4.5) mg/dL Magnesium (1.6-2.3) mg/dL Crossmatch Microbiology - Last 24 Hours (Table) 09/12/18 01:35 Blood Culture - Preliminary Blood No Growth after 96 hours Assessment and Plan Plan: Assessment 1 acute hypoxic respiratory failure secondary to massive bilateral pulmonary embolism, status post cardiac pulmonary arrest, status post TPA treatment, currently on IV heparin. The patient remains intubated on a mechanical ventilator. The subsequent follow-up chest x-ray shows evidence of interstitial edema and bilateral pleural effusion and possibly a component of bilateral pneumonia. The patient is currently on IV Zosyn. The patient is currently being diuresis with IV Lasix and he was started on Lasix drip at 10 mg an hour. He is also on IV heparin regarding pulmonary embolism. 2 acute respiratory failure secondary to above, currently intubated on a mechanical ventilator, secondary to above 3 massive pulmonary embolism with right ventricular strain and dilatation with subsequent cardiac arrest, without clear evidence of any anoxic or hypoxic encephalopathy. 4 acute cardio-pulmonary arrest secondary to massive PE, post TPA administration 5 acute hypotension,, this has recovered and the patient is currently off pressors 6 acute kidney injury with a creatinine coming up to 3.8. The patient is producing urine output although in the order of 30 mL an hour and he remains in a positive fluid balance. Currently on Lasix drip at 10 mg an hour regarding his massive in significant fluid overload. 7 acute DVT of the right lower extremity 8 morbid obesity with a BMI of 46.5 9 history of smoking 10 history of anxiety 11 acute on top of chronic anemia with a drop in hemoglobin down to 5. without evidence of any external or exogenous bleeding 12 right lower lobe pneumonia suspected, possibly of an aspiration type, on the recent chest x-ray shows bilateral lower lobe consolidation. 13 episodes of SVT, currently in sinus rhythm 14 morbid obesity with a BMI of 46.8 Plan We'll cut down the sedation to give him a arrests score of 0 to -1. We will keep the patient off pressors. Continue the Lasix drip. Monitor urine output. Continue IV Zosyn. Continue IV heparin. Administer 2 units of packed RBC. Monitor the hemoglobin level and watch for any signs of GI bleed. Vent settings were noted. No need for any changes as the patient has a mild component of metabolic acidosis in regards to his underlying acute kidney injury. Condition remains critical. Continue the supportive care. Unfortunately the prognosis been slow. Active issues for now remained acute respiratory failure and acute kidney injury that the patient is going through for now. The findings on the case. We'll continue to follow. This evaluation was done and more than 30 minutes and this is a critically care evaluation. Time with Patient: Greater than 30
--- NOTE | 2018-09-16 11:36 | P.PN ---
Subjective Patient is seen in follow-up for acute kidney injury. His baseline creatinine is 1. Renal function is worsening with creatinine up to 3.89 today. Patient is on IV heparin for bilateral pulmonary embolism. He also suffered 2 episodes of cardiopulmonary arrest on September 09. He is currently intubated and sedated. He also has significant lower extremity edema. He was started on Lasix drip at 10 mL an hour yesterday. He is off Levophed. Urine output 30-50 per hour. Hemoglobin 5.9 this morning. Vital signs are stable. Off Levophed. General: The patient appeared well nourished and normally developed. HEENT: Head exam is unremarkable. Neck is without jugular venous distension. Intubated. LUNGS: Breath sounds decreased. HEART: Rate and Rhythm are regular. First and second heart sounds normal. No murmurs, rubs or gallops. ABDOMEN: Abdominal exam reveals normal bowel sounds. Non-tender and non- distended. No evidence of peritonitis. EXTREMITITES: 2+ edema. Chronic skin changes noted. Objective - Vital Signs Vital signs: Vital Signs Temp 98.5 F 09/16/18 10:13 Pulse 84 09/16/18 10:13 Resp 32 H 09/16/18 10:13 BP 125/58 09/16/18 10:13 Pulse Ox 91 L 09/16/18 10:00 Intake & Output 09/15/18 09/16/18 09/16/18 18:59 06:59 18:59 Intake Total 2092.805 2087.968 1068.383 Output Total 695 555 245 Balance 6970.662 0013.968 823.383 Weight 167.1 kg 167.1 kg Intake: IV 312 396 140 Furosemide 250 mg In 110 10 Sodium Chloride 0.9% 225 ml @ 10 MG/HR 10 mls/hr IVP .Q24H [facility] Rx#: [id number] Pressure bag 72 66 30 Sodium Chloride 0.9% 1, 240 220 100 000 ml @ 20 mls/hr IV . Q24H [facility] Rx#:[id number] Intake, IV Titration 7352.077 2657.968 713.383 Amount Furosemide 250 mg In 100 197.5 54.5 Sodium Chloride 0.9% 225 ml @ 10 MG/HR 10 mls/hr IVP .Q24H [facility] Rx#: [id number] Heparin Sod,Pork in 0.45% 415.510 500 458.883 NaCl 25,000 unit In 0.45 % NaCl 1 500ml.bag @ 14.9 UNITS/KG/HR 45.95 mls/hr IV .[id number] [facility] Rx#: [id number] Norepinephrine 16 mg In 0.295 Sodium Chloride 0.9% 250 ml @ Titrate IV .Q0M [facility] Rx#:[id number] Piperacillin-Tazobactam 3 100 .375 gm In Dextrose/Water 1 50ml.bag @ 12.5 mls/hr IVPB Q8H [facility] Rx#: [id number] Propofol 1,000 mg In 400.000 497.468 200.000 Empty Bag 1 bag @ Titrate IV .Q0M [facility] Rx#: [id number] Oral 0 Tube Feeding 555 259 185 Blood Product 0 Rc As-1 Unit 0 [id number] Other 210 238 30 Output: Urine 695 555 245 Other: Voiding Method Indwelling Catheter Indwelling Catheter Indwelling Catheter ABP, PAP, CO, CI - Last Documented Arterial Blood Pressure 132/57 - Labs CBC & Chem 7: 09/16/18 05:00 09/16/18 05:00 Labs: Abnormal Lab Results - Last 24 Hours (Table) 09/15/18 09/15/18 09/15/18 Range/Units 12:03 12:25 18:04 WBC (3.8-10.6) k/uL RBC (4.30-5.90) m/uL Hgb (13.0-17.5) gm/dL Hct (39.0-53.0) % Neutrophils # (Manual) (1.3-7.7) k/uL Lymphocytes # (Manual) (1.0-4.8) k/uL Metamyelocytes # (Man) (0) k/uL Myelocytes # (Manual) (0) k/uL APTT 47.3 H (22.0-30.0) sec ABG pH (7.35-7.45) ABG O2 Saturation (94-97) % Sodium (137-145) mmol/L Carbon Dioxide (22-30) mmol/L BUN (9-20) mg/dL Creatinine (0.66-1.25) mg/dL Glucose (74-99) mg/dL POC Glucose (mg/dL) 125 H 121 H (75-99) mg/dL Calcium (8.4-10.2) mg/dL Phosphorus (2.5-4.5) mg/dL Magnesium (1.6-2.3) mg/dL Crossmatch 09/16/18 09/16/18 09/16/18 Range/Units 00:02 04:58 05:00 WBC (3.8-10.6) k/uL RBC (4.30-5.90) m/uL Hgb (13.0-17.5) gm/dL Hct (39.0-53.0) % Neutrophils # (Manual) (1.3-7.7) k/uL Lymphocytes # (Manual) (1.0-4.8) k/uL Metamyelocytes # (Man) (0) k/uL Myelocytes # (Manual) (0) k/uL APTT 50.0 H (22.0-30.0) sec ABG pH 7.29 L (7.35-7.45) ABG O2 Saturation 98.2 H (94-97) % Sodium (137-145) mmol/L Carbon Dioxide (22-30) mmol/L BUN (9-20) mg/dL Creatinine (0.66-1.25) mg/dL Glucose (74-99) mg/dL POC Glucose (mg/dL) 146 H (75-99) mg/dL Calcium (8.4-10.2) mg/dL Phosphorus (2.5-4.5) mg/dL Magnesium (1.6-2.3) mg/dL Crossmatch 09/16/18 09/16/18 09/16/18 Range/Units 05:00 05:00 06:20 WBC 11.2 H (3.8-10.6) k/uL RBC 1.91 L (4.30-5.90) m/uL Hgb 5.9 L* D (13.0-17.5) gm/dL Hct 18.7 L* (39.0-53.0) % Neutrophils # (Manual) 8.70 H (1.3-7.7) k/uL Lymphocytes # (Manual) 0.34 L (1.0-4.8) k/uL Metamyelocytes # (Man) 0.67 H (0) k/uL Myelocytes # (Manual) 0.78 H (0) k/uL APTT (22.0-30.0) sec ABG pH (7.35-7.45) ABG O2 Saturation (94-97) % Sodium 136 L (137-145) mmol/L Carbon Dioxide 18 L (22-30) mmol/L BUN 57 H (9-20) mg/dL Creatinine 3.89 H (0.66-1.25) mg/dL Glucose 105 H (74-99) mg/dL POC Glucose (mg/dL) (75-99) mg/dL Calcium 7.6 L (8.4-10.2) mg/dL Phosphorus 7.1 H (2.5-4.5) mg/dL Magnesium 2.4 H (1.6-2.3) mg/dL Crossmatch See Detail 09/16/18 Range/Units 06:51 WBC (3.8-10.6) k/uL RBC (4.30-5.90) m/uL Hgb (13.0-17.5) gm/dL Hct (39.0-53.0) % Neutrophils # (Manual) (1.3-7.7) k/uL Lymphocytes # (Manual) (1.0-4.8) k/uL Metamyelocytes # (Man) (0) k/uL Myelocytes # (Manual) (0) k/uL APTT (22.0-30.0) sec ABG pH (7.35-7.45) ABG O2 Saturation (94-97) % Sodium (137-145) mmol/L Carbon Dioxide (22-30) mmol/L BUN (9-20) mg/dL Creatinine (0.66-1.25) mg/dL Glucose (74-99) mg/dL POC Glucose (mg/dL) 121 H (75-99) mg/dL Calcium (8.4-10.2) mg/dL Phosphorus (2.5-4.5) mg/dL Magnesium (1.6-2.3) mg/dL Crossmatch Microbiology - Last 24 Hours (Table) 09/12/18 01:35 Blood Culture - Preliminary Blood No Growth after 96 hours Assessment and Plan Plan: Assessment: 1. Acute kidney injury secondary to ATN secondary to hypotension and hemodynamic instability. Baseline creatinine is 1 and elevated at 3.89 today. No evidence of hydronephrosis noted on renal ultrasound. 2. Bilateral pulmonary embolism status post TPA maintained on IV heparin. 3. Right lower extremity DVT. 4. Hypotension now off Levophed. Cortisol level normal. 5. Acute hypoxic respiratory failure secondary to PE. 6. Hyperphosphatemia secondary to acute kidney injury. 7. SVT now in sinus rhythm. Cardiology following. 8. Volume overload. 9. Acute blood loss anemia with hemoglobin of 5.9 today. Plan: Increase Lasix drip to 15 mL an hour. Add Renvela 3 times daily. He is scheduled to receive 2 units of blood transfusion today. Maintain tube feeds. Avoid nephrotoxins. Continue to monitor renal function and urine output. Case discussed with the family at bedside. They are agreeable to proceed with renal replacement therapy if indicated. No urgent need for renal replacement therapy at this time.
[2018-09-16 12:07] LABS: ABG Base Excess -6.6 mmol/L; ABG HCO3 20 mmol/L (21-25); ABG Oxygen Saturation 97.7 % (94-97); ABG PCO2 41 mmHg (35-45); ABG PH 7.29 (7.35-7.45); ABG PO2 100 mmHg (83-108); ABG TCO2 21 mmol/L (19-24)
[2018-09-16 12:20] LABS: Glucose,Whole Blood 124 mg/dL (75-99)
[2018-09-16] MEDS: MULTIVITAMINS, THERA 1 EACH TAB PO SCH (13:17)
[2018-09-16] MEDS: SEVELAMER 800 MG TAB PO SCH ×2 (13:18→18:21)
[2018-09-16 17:03] LABS: HCT 26.9 % (39.0-53.0); MCH 31.4 pg (25.0-35.0); MCHC 33.2 g/dL (31.0-37.0); MCV 94.5 fL (80.0-100.0); Mean Platelet Volume 7.1; Platelet Count 402 k/uL (150-450); RBC 2.84 m/uL (4.30-5.90); RDW 15.3 % (11.5-15.5); WBC 19.9 k/uL (3.8-10.6)
[2018-09-16 17:04] LABS: HGB 8.9 gm/dL (13.0-17.5)
[2018-09-16 18:11] LABS: Glucose,Whole Blood 129 mg/dL (75-99)
[2018-09-16] MEDS: SODIUM CHLORIDE 0.9% 1,000 ML IV SCH (21:00)
--- NOTE | 2018-09-16 21:57 | P.PN ---
Subjective Progress Note Date: 09/15/18 Principal diagnosis: Massive pulmonary embolism Acute cardiopulmonary arrest status post CPR and intubation Patient is a 52-year-old male with a known history of chronic bilateral lower extremity lymphedema and history of pulmonary embolism about a year ago, currently not taking Coumadin for the past 6-8 months came to ER with complaints of acute worsening shortness of breath since yesterday. Patient says that he has been having shortness of breath for the last couple of weeks but suddenly got worse yesterday. Patient was told that his DVT and pulmonary embolus was secondary to sedentary lifestyle and sleeping in a sitting position. Patient states he took his Coumadin for about 6 months. He was so several follow-up appointment in November for repeat evaluation however he did not follow-up with that appointment. He stopped his Coumadin in November. Denies any constitutional symptoms. Patient feels much more short of breath with exertion. Chest pain. He feels as though both of his legs are much more edematous than usual suspicion is right lower extremity. Lower extremity duplex scan showed acute DVT right popliteal vein through the proximal calf veins CTA chest showed massive bilateral pulmonary embolism with right ventricular enlargement suggestive of right ventricular strain correlate clinically. A 7 mm and 4 mm right lower lobe pulmonary nodule not seen previous exam subpleural in location could be inflammatory. WBC 14.1 Troponin 0.258 Potassium 5.3 On 09/09/2018 Patient had a brief episode of cardiopulmonary arrest this morning and developed respiratory distress. Subsequently patient was intubated and was transferred to MICU. Patient had a difficult intubation. Patient was given TPA by ER physician. Patient also received multiple doses of epinephrine and sodium bicarbonate. Patient is currently on Levophed drip. Being continued on heparin drip as well. Patient is currently sedated. Initial ABG showed pH 7.0, pCO2 80, pO2 118 Patient was seen by cardiology and pulmonary. 09/10/2018 Patient is currently mechanically ventilated and sedated. Patient is being continued on heparin drip. Continues to be on Levothroid drip. Patient had SVT during cardiopulmonary arrest. Patient was started on amiodarone.. Otherwise hemoglobin dropped to 10.7 today. Continues to have bloody secretions which is being suctioned. Chest x-ray showed bilateral pleural effusion and consolidation. AST 559 and ALT 509 albumin 2.6. Cultures negative so far. Creatinine 1.76. 09/11/2018 52-year-old gentleman with a history of massive bilateral pulmonary embolism right ventricular enlargement and right heart strain. He did receive systemic TPA and was on IV heparin until yesterday which time was turned off because of ongoing bleeding. The patient's overall prognosis remains very guarded. The patient remains on ventilator. Arterial blood gases show a PaO2 of 113 PaCO2 38 and a pH of 7.4. The patient is on saline at 75 mL an hour; Heparin was discontinued yesterday because of ongoing bleeding from the cavity and NG tube. In addition, he's had about a 1 g hemoglobin drop on a daily basis. This morning's hemoglobin is 9.9. 09/12/2018; The patient's overall prognosis remains very guarded. The patient was given a daily interruption of sedation today but could not have a spontaneous breathing trial because he became very tachypnea with respiratory rates above 40. Currently, he is on the volume assist control mode rate of 32, tidal volume 500 , FiO2 35% to be increased to 40% and 5 of PEEP. Arterial blood gases showed a PaO2 of 59 a PaCO2 of 43 and a pH 7.37. That was on 35% FiO2. In addition, the patient's on norepinephrine at 7 mics per minute, propofol at 65 mcg/kg/m, saline IV at 75 mL an hour, heparin via weightbase protocol and vital 1.2 at goal. Chest x-ray shows bilateral effusions with basilar atelectasis and/or infiltrates. On 09/15/2018 Patient currently on mechanical ventilation with assist control and sedation. Patient is being continued on IV heparin. Hemoglobin is 7.5. Renal function slightly worsened with increasing creatinine level 3.56. No active bleeding noted. Chest x-ray showed bilateral pleural effusion and pulmonary vascular congestion. Patient was given a dose of Lasix previously. Patient is currently on antibiotics in the form of Zosyn. Current medications reviewed. Objective - Vital Signs Vital signs: Vital Signs Temp 98.8 F 09/15/18 13:00 Pulse 87 09/15/18 15:00 Resp 29 H 09/15/18 15:00 BP 126/60 09/13/18 19:00 Pulse Ox 97 09/15/18 15:00 Intake & Output 09/14/18 09/15/18 09/15/18 18:59 06:59 18:59 Intake Total 6321.581 4407 1583.805 Output Total 422 385 440 Balance 1060.897 109 4179.805 Weight 164.3 kg 165.2 kg Intake: IV 274 338 208 Pressure bag 54 78 48 Sodium Chloride 0.9% 1, 220 260 160 000 ml @ 20 mls/hr IV . Q24H [facility] Rx#:[id number] Intake, IV Titration 1023.460 700 825.805 Amount Furosemide 250 mg In 60 Sodium Chloride 0.9% 225 ml @ 10 MG/HR 10 mls/hr IVP .Q24H [facility] Rx#: [id number] Heparin Sod,Pork in 0.45% 500 500 415.510 NaCl 25,000 unit In 0.45 % NaCl 1 500ml.bag @ 14.9 UNITS/KG/HR 45.95 mls/hr IV .[id number] [facility] Rx#: [id number] Norepinephrine 16 mg In 70.561 0.295 Sodium Chloride 0.9% 250 ml @ Titrate IV .Q0M [facility] Rx#:[id number] Piperacillin-Tazobactam 3 50 .375 gm In Dextrose/Water 1 50ml.bag @ 12.5 mls/hr IVPB Q8H [facility] Rx#: [id number] Potassium Chloride 10 meq 100 In Water For Injection 1 100ml.bag @ 100 mls/hr IVPB Q1H [facility] Rx#: [id number] Propofol 1,000 mg In 352.899 200 300.000 Empty Bag 1 bag @ Titrate IV .Q0M [facility] Rx#: [id number] Tube Feeding 185 370 Other 180 Output: Urine 422 385 440 Other: Voiding Method Indwelling Catheter Indwelling Catheter Indwelling Catheter # Voids 1 ABP, PAP, CO, CI - Last Documented Arterial Blood Pressure 128/59 - Exam PHYSICAL EXAMINATION: Patient is lying in the bed comfortably, currently sedated and intubated HEENT: Normocephalic. Neck is supple. Pupils reactive. Nostrils clear. Oral cavity is moist. Ears reveal no drainage. Neck reveals no JVD, carotid bruits, or thyromegaly. CHEST EXAMINATION: Trachea is central. Symmetrical expansion. Bibasilar diminished air entry and crackles present. CARDIAC: Normal S1, S2 with no gallops. No murmurs ABDOMEN: Soft. Bowel sounds normal. No organomegaly. No abdominal bruits. Extremities: Bilateral lower extremity lymphedema with 3+ edema. No clubbing or cyanosis Neurologically . Currently sedated and intubated. Skin: No rash or skin lesions except above. Psychiatric: Could not be assessed at this time. - Labs CBC & Chem 7: 09/16/18 16:17 09/16/18 05:00 Labs: Abnormal Lab Results - Last 24 Hours (Table) 09/14/18 09/14/18 09/14/18 Range/Units 17:01 20:22 23:57 WBC 10.8 H (3.8-10.6) k/uL RBC 2.45 L (4.30-5.90) m/uL Hgb 7.6 L (13.0-17.5) gm/dL Hct 23.4 L (39.0-53.0) % APTT (22.0-30.0) sec ABG pO2 (83-108) mmHg ABG O2 Saturation (94-97) % BUN (9-20) mg/dL Creatinine (0.66-1.25) mg/dL Glucose (74-99) mg/dL POC Glucose (mg/dL) 121 H 134 H (75-99) mg/dL Calcium (8.4-10.2) mg/dL 09/15/18 09/15/18 09/15/18 Range/Units 04:12 04:12 04:32 WBC 12.2 H (3.8-10.6) k/uL RBC 2.38 L (4.30-5.90) m/uL Hgb 7.5 L (13.0-17.5) gm/dL Hct 22.9 L (39.0-53.0) % APTT 38.8 H (22.0-30.0) sec ABG pO2 124 H (83-108) mmHg ABG O2 Saturation 100.0 H (94-97) % BUN (9-20) mg/dL Creatinine (0.66-1.25) mg/dL Glucose (74-99) mg/dL POC Glucose (mg/dL) (75-99) mg/dL Calcium (8.4-10.2) mg/dL 09/15/18 09/15/18 09/15/18 Range/Units 05:58 09:10 12:03 WBC (3.8-10.6) k/uL RBC (4.30-5.90) m/uL Hgb (13.0-17.5) gm/dL Hct (39.0-53.0) % APTT (22.0-30.0) sec ABG pO2 (83-108) mmHg ABG O2 Saturation (94-97) % BUN 46 H (9-20) mg/dL Creatinine 3.56 H (0.66-1.25) mg/dL Glucose 119 H (74-99) mg/dL POC Glucose (mg/dL) 119 H 125 H (75-99) mg/dL Calcium 8.3 L (8.4-10.2) mg/dL 09/15/18 Range/Units 12:25 WBC (3.8-10.6) k/uL RBC (4.30-5.90) m/uL Hgb (13.0-17.5) gm/dL Hct (39.0-53.0) % APTT 47.3 H (22.0-30.0) sec ABG pO2 (83-108) mmHg ABG O2 Saturation (94-97) % BUN (9-20) mg/dL Creatinine (0.66-1.25) mg/dL Glucose (74-99) mg/dL POC Glucose (mg/dL) (75-99) mg/dL Calcium (8.4-10.2) mg/dL Microbiology - Last 24 Hours (Table) 09/12/18 01:35 Blood Culture - Preliminary Blood No Growth after 72 hours Assessment and Plan Assessment: Acute cardiopulmonary arrest likely due to pulmonary embolism. Status post CPR and spontaneous return of circulation Acute hypercapnic respiratory failure. Currently on mechanical ventilator Massive pulmonary embolism with right ventricular strain. Patient was given TPA during CPR Acute hypotension currently on pressor support. 2-D echocardiogram showed normal LV function Possible right lower lobe pneumonia Nonoliguric acute kidney injury Acute on chronic anemia. Possible acute blood loss anemia Elevated troponin level secondary to right ventricular strain Acute lower extremity DVT Family history of pulmonary embolism in his brother Mild hyperkalemia 5.3 Recent history of pulmonary embolism about a year ago. Stopped taking Coumadin since November 2017 Previous history of smoking Bilateral lower extremity chronic lymphedema Morbid obesity with BMI 43.7 Seborrheic dermatitis history Anxiety Plan: Patient will be continued on IV heparin and monitor closely in the MICU. Patient was given TPA. Continue with pressor support. Cardiology and pulmonary is following. Continue with mechanical ventilation. Monitor H&H. Monitor renal function and also monitor for any GI bleed. Discussed with his family at bedside in detail. Prognosis is poor. Further recommendations based on the clinical course. Time with Patient: Greater than 30
--- NOTE | 2018-09-16 22:01 | P.PN ---
Subjective Progress Note Date: 09/16/18 Principal diagnosis: Massive pulmonary embolism Acute cardiopulmonary arrest status post CPR and intubation Patient is a 52-year-old male with a known history of chronic bilateral lower extremity lymphedema and history of pulmonary embolism about a year ago, currently not taking Coumadin for the past 6-8 months came to ER with complaints of acute worsening shortness of breath since yesterday. Patient says that he has been having shortness of breath for the last couple of weeks but suddenly got worse yesterday. Patient was told that his DVT and pulmonary embolus was secondary to sedentary lifestyle and sleeping in a sitting position. Patient states he took his Coumadin for about 6 months. He was so several follow-up appointment in November for repeat evaluation however he did not follow-up with that appointment. He stopped his Coumadin in November. Denies any constitutional symptoms. Patient feels much more short of breath with exertion. Chest pain. He feels as though both of his legs are much more edematous than usual suspicion is right lower extremity. Lower extremity duplex scan showed acute DVT right popliteal vein through the proximal calf veins CTA chest showed massive bilateral pulmonary embolism with right ventricular enlargement suggestive of right ventricular strain correlate clinically. A 7 mm and 4 mm right lower lobe pulmonary nodule not seen previous exam subpleural in location could be inflammatory. WBC 14.1 Troponin 0.258 Potassium 5.3 On 09/09/2018 Patient had a brief episode of cardiopulmonary arrest this morning and developed respiratory distress. Subsequently patient was intubated and was transferred to MICU. Patient had a difficult intubation. Patient was given TPA by ER physician. Patient also received multiple doses of epinephrine and sodium bicarbonate. Patient is currently on Levophed drip. Being continued on heparin drip as well. Patient is currently sedated. Initial ABG showed pH 7.0, pCO2 80, pO2 118 Patient was seen by cardiology and pulmonary. 09/10/2018 Patient is currently mechanically ventilated and sedated. Patient is being continued on heparin drip. Continues to be on Levothroid drip. Patient had SVT during cardiopulmonary arrest. Patient was started on amiodarone.. Otherwise hemoglobin dropped to 10.7 today. Continues to have bloody secretions which is being suctioned. Chest x-ray showed bilateral pleural effusion and consolidation. AST 559 and ALT 509 albumin 2.6. Cultures negative so far. Creatinine 1.76. 09/11/2018 52-year-old gentleman with a history of massive bilateral pulmonary embolism right ventricular enlargement and right heart strain. He did receive systemic TPA and was on IV heparin until yesterday which time was turned off because of ongoing bleeding. The patient's overall prognosis remains very guarded. The patient remains on ventilator. Arterial blood gases show a PaO2 of 113 PaCO2 38 and a pH of 7.4. The patient is on saline at 75 mL an hour; Heparin was discontinued yesterday because of ongoing bleeding from the cavity and NG tube. In addition, he's had about a 1 g hemoglobin drop on a daily basis. This morning's hemoglobin is 9.9. 09/12/2018; The patient's overall prognosis remains very guarded. The patient was given a daily interruption of sedation today but could not have a spontaneous breathing trial because he became very tachypnea with respiratory rates above 40. Currently, he is on the volume assist control mode rate of 32, tidal volume 500 , FiO2 35% to be increased to 40% and 5 of PEEP. Arterial blood gases showed a PaO2 of 59 a PaCO2 of 43 and a pH 7.37. That was on 35% FiO2. In addition, the patient's on norepinephrine at 7 mics per minute, propofol at 65 mcg/kg/m, saline IV at 75 mL an hour, heparin via weightbase protocol and vital 1.2 at goal. Chest x-ray shows bilateral effusions with basilar atelectasis and/or infiltrates. On 09/15/2018 Patient currently on mechanical ventilation with assist control and sedation. Patient is being continued on IV heparin. Hemoglobin is 7.5. Renal function slightly worsened with increasing creatinine level 3.56. No active bleeding noted. Chest x-ray showed bilateral pleural effusion and pulmonary vascular congestion. Patient was given a dose of Lasix previously. Patient is currently on antibiotics in the form of Zosyn. 09/16/2018 Patient was seen and examined in the MICU. Currently maintained on mechanical ventilator. Hemoglobin dropped to 5.9 today. 2 units of PRBC was ordered. No signs of active bleeding noted. Patient is being continued on IV heparin. Chest x-ray showed evidence of bilateral consolidation and pleural effusion. Correlate for pulmonary edema and diffuse pneumonia. Currently on Lasix drip. Creatinine level increased to 3.89 today. Otherwise patient is getting empiric antibiotics for possible pneumonia aspiration likely. Patient is being followed by pulmonary cardiology and nephrology. Current medications reviewed. Active Medications Albuterol/Ipratropium (Duoneb 0.5 Mg-3 Mg/3 Ml Soln) 3 ml INHALATION RT-Q2H PRN PRN Reason: Shortness Of Breath Or Wheezing Albuterol/Ipratropium (Duoneb 0.5 Mg-3 Mg/3 Ml Soln) 3 ml INHALATION RT-Q4H [facility] Last Admin: 09/16/18 20:44 Dose: 3 ml Amiodarone HCl (Cordarone) 400 mg PO BID [facility] Last Admin: 09/16/18 21:49 Dose: 400 mg Chlorhexidine Gluconate (Peridex) 15 ml MUCOUS MEM BID [facility] Last Admin: 09/16/18 21:49 Dose: 15 ml Heparin Sodium (Porcine) (Heparin) 0 unit IV PER PROTOCOL PRN; Protocol PRN Reason: Low PTT Last Admin: 09/09/18 04:34 Dose: 4,000 unit Hydromorphone HCl (Dilaudid) 1 mg IVP Q1HR PRN PRN Reason: Mild to Moderate Pain Last Admin: 09/11/18 20:34 Dose: 1 mg Hydromorphone HCl (Dilaudid) 2 mg IVP Q1HR PRN PRN Reason: Moderate to Severe Pain Heparin Sodium/Sodium Chloride (25,000 unit/ Sodium Chloride) 500 mls @ 45.95 mls/hr IV .[id number] [facility]; Protocol Last Admin: 09/16/18 09:45 Dose: 18 units/kg/hr, 55.51 mls/hr Propofol 1,000 mg/ IV Solution 100 mls @ 0 mls/hr IV .Q0M [facility]; Protocol Last Admin: 09/16/18 21:49 Dose: 44.99 mcg/kg/min, 45.1 mls/hr Norepinephrine Bitartrate 16 (mg/ Sodium Chloride) 250 mls @ 0 mls/hr IV .Q0M [facility]; Protocol Last Titration: 09/15/18 14:40 Dose: 0 mcg/min, 0 mls/hr Sodium Chloride (Saline 0.9%) 1,000 mls @ 20 mls/hr IV .Q24H [facility] Last Admin: 09/15/18 14:21 Dose: 20 mls/hr Acetaminophen 1,000 mg/ IV (Solution) 100 mls @ 400 mls/hr IVPB ONCE PRN PRN Reason: Fever>101 Last Admin: 09/13/18 21:55 Dose: 400 mls/hr Piperacillin/Tazobactam/ (Dextrose 3.375 gm/ IV Solution) 50 mls @ 12.5 mls/hr IVPB Q8H [facility] Last Admin: 09/16/18 18:21 Dose: 12.5 mls/hr Furosemide 250 mg/ Sodium (Chloride) 250 mls @ 15 mls/hr IVP .[id number] [facility] Last Infusion: 09/16/18 11:15 Dose: 15 mg/hr, 15 mls/hr Insulin Aspart (Novolog) 0 unit SQ Q6HR [facility]; Protocol Last Admin: 09/16/18 18:10 Dose: Not Given Miscellaneous Information (Potassium Per Protocol) 1 each MISCELLANE DAILY PRN ; Protocol PRN Reason: Per Protocol Miscellaneous Information (Magnesium Per Protocol) 1 each MISCELLANE DAILY PRN ; Protocol PRN Reason: Per Protocol Multivitamins (Theragran) 1 each PO DAILY@1200 [facility] Last Admin: 09/16/18 13:17 Dose: 1 each Naloxone HCl (Narcan) 0.2 mg IV Q2M PRN PRN Reason: Opioid Reversal Pantoprazole Sodium (Protonix) 40 mg IVP DAILY [facility] Last Admin: 09/16/18 08:57 Dose: 40 mg Sevelamer Carbonate (Renvela) 800 mg PO TID-W/MEALS [facility] Last Admin: 09/16/18 18:21 Dose: 800 mg Objective - Vital Signs Vital signs: Vital Signs Temp 98.8 F 09/16/18 14:03 Pulse 84 09/16/18 16:14 Resp 33 H 09/16/18 14:03 BP 119/65 09/16/18 14:03 Pulse Ox 96 09/16/18 14:00 Intake & Output 09/15/18 09/16/18 09/16/18 18:59 06:59 18:59 Intake Total 2092.805 2087.968 1981.383 Output Total 695 555 495 Balance 9177.423 0022.968 1486.383 Weight 167.1 kg 167.1 kg Intake: IV 312 396 218 Furosemide 250 mg In 110 10 Sodium Chloride 0.9% 225 ml @ 15 MG/HR 15 mls/hr IVP .[id number] [facility] Rx#: [id number] Pressure bag 72 66 48 Sodium Chloride 0.9% 1, 240 220 160 000 ml @ 20 mls/hr IV . Q24H [facility] Rx#:[id number] Intake, IV Titration 8972.369 5106.968 813.383 Amount Furosemide 250 mg In 100 197.5 54.5 Sodium Chloride 0.9% 225 ml @ 15 MG/HR 15 mls/hr IVP .[id number] [facility] Rx#: [id number] Heparin Sod,Pork in 0.45% 415.510 500 458.883 NaCl 25,000 unit In 0.45 % NaCl 1 500ml.bag @ 14.9 UNITS/KG/HR 45.95 mls/hr IV .[id number] [facility] Rx#: [id number] Norepinephrine 16 mg In 0.295 Sodium Chloride 0.9% 250 ml @ Titrate IV .Q0M [facility] Rx#:[id number] Piperacillin-Tazobactam 3 100 .375 gm In Dextrose/Water 1 50ml.bag @ 12.5 mls/hr IVPB Q8H [facility] Rx#: [id number] Propofol 1,000 mg In 400.000 497.468 300.000 Empty Bag 1 bag @ Titrate IV .Q0M [facility] Rx#: [id number] Oral 0 Tube Feeding 555 259 270 Blood Product 620 Rc As-1 Unit 310 [id number] Rc Irr As1 Unit 310 [id number] Other 210 238 60 Output: Urine 695 555 495 Other: Voiding Method Indwelling Catheter Indwelling Catheter Indwelling Catheter ABP, PAP, CO, CI - Last Documented Arterial Blood Pressure 116/65 - Exam PHYSICAL EXAMINATION: Patient is lying in the bed comfortably, currently sedated and intubated HEENT: Normocephalic. Neck is supple. Pupils reactive. Nostrils clear. Oral cavity is moist. Ears reveal no drainage. Neck reveals no JVD, carotid bruits, or thyromegaly. CHEST EXAMINATION: Trachea is central. Symmetrical expansion. Bibasilar diminished air entry and crackles present. CARDIAC: Normal S1, S2 with no gallops. No murmurs ABDOMEN: Soft. Bowel sounds normal. No organomegaly. No abdominal bruits. Extremities: Bilateral lower extremity lymphedema with 3+ edema. No clubbing or cyanosis Neurologically . Currently sedated and intubated. Skin: No rash or skin lesions except above. Psychiatric: Could not be assessed at this time. - Labs CBC & Chem 7: 09/16/18 16:17 09/16/18 05:00 Labs: Abnormal Lab Results - Last 24 Hours (Table) 09/15/18 09/16/18 09/16/18 Range/Units 18:04 00:02 04:58 WBC (3.8-10.6) k/uL RBC (4.30-5.90) m/uL Hgb (13.0-17.5) gm/dL Hct (39.0-53.0) % Neutrophils # (Manual) (1.3-7.7) k/uL Lymphocytes # (Manual) (1.0-4.8) k/uL Metamyelocytes # (Man) (0) k/uL Myelocytes # (Manual) (0) k/uL APTT (22.0-30.0) sec ABG pH 7.29 L (7.35-7.45) ABG HCO3 (21-25) mmol/L ABG O2 Saturation 98.2 H (94-97) % Sodium (137-145) mmol/L Carbon Dioxide (22-30) mmol/L BUN (9-20) mg/dL Creatinine (0.66-1.25) mg/dL Glucose (74-99) mg/dL POC Glucose (mg/dL) 121 H 146 H (75-99) mg/dL Calcium (8.4-10.2) mg/dL Phosphorus (2.5-4.5) mg/dL Magnesium (1.6-2.3) mg/dL Crossmatch 09/16/18 09/16/18 09/16/18 Range/Units 05:00 05:00 05:00 WBC 11.2 H (3.8-10.6) k/uL RBC 1.91 L (4.30-5.90) m/uL Hgb 5.9 L* D (13.0-17.5) gm/dL Hct 18.7 L* (39.0-53.0) % Neutrophils # (Manual) 8.70 H (1.3-7.7) k/uL Lymphocytes # (Manual) 0.34 L (1.0-4.8) k/uL Metamyelocytes # (Man) 0.67 H (0) k/uL Myelocytes # (Manual) 0.78 H (0) k/uL APTT 50.0 H (22.0-30.0) sec ABG pH (7.35-7.45) ABG HCO3 (21-25) mmol/L ABG O2 Saturation (94-97) % Sodium 136 L (137-145) mmol/L Carbon Dioxide 18 L (22-30) mmol/L BUN 57 H (9-20) mg/dL Creatinine 3.89 H (0.66-1.25) mg/dL Glucose 105 H (74-99) mg/dL POC Glucose (mg/dL) (75-99) mg/dL Calcium 7.6 L (8.4-10.2) mg/dL Phosphorus 7.1 H (2.5-4.5) mg/dL Magnesium 2.4 H (1.6-2.3) mg/dL Crossmatch 09/16/18 09/16/18 09/16/18 Range/Units 06:20 06:51 12:02 WBC (3.8-10.6) k/uL RBC (4.30-5.90) m/uL Hgb (13.0-17.5) gm/dL Hct (39.0-53.0) % Neutrophils # (Manual) (1.3-7.7) k/uL Lymphocytes # (Manual) (1.0-4.8) k/uL Metamyelocytes # (Man) (0) k/uL Myelocytes # (Manual) (0) k/uL APTT (22.0-30.0) sec ABG pH 7.29 L (7.35-7.45) ABG HCO3 20 L (21-25) mmol/L ABG O2 Saturation 97.7 H (94-97) % Sodium (137-145) mmol/L Carbon Dioxide (22-30) mmol/L BUN (9-20) mg/dL Creatinine (0.66-1.25) mg/dL Glucose (74-99) mg/dL POC Glucose (mg/dL) 121 H (75-99) mg/dL Calcium (8.4-10.2) mg/dL Phosphorus (2.5-4.5) mg/dL Magnesium (1.6-2.3) mg/dL Crossmatch See Detail 09/16/18 Range/Units 12:18 WBC (3.8-10.6) k/uL RBC (4.30-5.90) m/uL Hgb (13.0-17.5) gm/dL Hct (39.0-53.0) % Neutrophils # (Manual) (1.3-7.7) k/uL Lymphocytes # (Manual) (1.0-4.8) k/uL Metamyelocytes # (Man) (0) k/uL Myelocytes # (Manual) (0) k/uL APTT (22.0-30.0) sec ABG pH (7.35-7.45) ABG HCO3 (21-25) mmol/L ABG O2 Saturation (94-97) % Sodium (137-145) mmol/L Carbon Dioxide (22-30) mmol/L BUN (9-20) mg/dL Creatinine (0.66-1.25) mg/dL Glucose (74-99) mg/dL POC Glucose (mg/dL) 124 H (75-99) mg/dL Calcium (8.4-10.2) mg/dL Phosphorus (2.5-4.5) mg/dL Magnesium (1.6-2.3) mg/dL Crossmatch Microbiology - Last 24 Hours (Table) 09/12/18 01:35 Blood Culture - Preliminary Blood No Growth after 96 hours Assessment and Plan Assessment: Acute cardiopulmonary arrest likely due to pulmonary embolism. Status post CPR and spontaneous return of circulation Acute hypercapnic respiratory failure. Currently on mechanical ventilator Massive pulmonary embolism with right ventricular strain. Patient was given TPA during CPR Acute hypotension currently on pressor support. 2-D echocardiogram showed normal LV function Possible right lower lobe pneumonia Nonoliguric acute kidney injury Acute on chronic anemia. Possible acute blood loss anemia Elevated troponin level secondary to right ventricular strain Acute lower extremity DVT Family history of pulmonary embolism in his brother Mild hyperkalemia 5.3 Recent history of pulmonary embolism about a year ago. Stopped taking Coumadin since November 2017 Previous history of smoking Bilateral lower extremity chronic lymphedema Morbid obesity with BMI 43.7 Seborrheic dermatitis history Anxiety Plan: Patient will be continued on IV heparin and monitor closely in the MICU. Patient was given TPA. Continue with pressor support. Cardiology and pulmonary is following. Continue with mechanical ventilation. Monitor H&H. 2 units of PRBC transfusion was ordered today. Monitor renal function and also monitor for any GI bleed. Discussed with his family at bedside in detail. Prognosis is poor. Further recommendations based on the clinical course. Time with Patient: Greater than 30
[2018-09-16 23:42] LABS: Glucose,Whole Blood 131 mg/dL (75-99)
[2018-09-17] MEDS: PROPOFOL 1,000 MG in EMPTY BAG 1 BAG IV SCH ×4 (00:30→09:24)
[2018-09-17] MEDS: PIPERACILLIN-TAZOBACTAM 3.375 GM in DEXTROSE/WATER 1 50ML.BAG IVPB SCH ×3 (02:24→18:27)
[2018-09-17] MEDS: IPRATROPIUM-ALBUTEROL 3 ML NEB INHALATION SCH ×6 (03:13→23:06)
[2018-09-17 04:32] LABS: HCT 22.4 % (39.0-53.0); HGB 7.6 gm/dL (13.0-17.5); MCH 31.7 pg (25.0-35.0); MCHC 33.8 g/dL (31.0-37.0); Mean Platelet Volume 7.2; Platelet Count 331 k/uL (150-450); RBC 2.38 m/uL (4.30-5.90); RDW 15.9 % (11.5-15.5); WBC 18.8 k/uL (3.8-10.6)
[2018-09-17 05:15] LABS: Band Neutrophils % 6 %; Lymphocytes # (M) 2.26 k/uL (1.0-4.8); Monocytes # (M) 0.38 k/uL (0-1.0); Myelocytes # (M) 2.44 k/uL (0); Myelocytes % 13 %; Neutrophils % (M) 67 %; Nucleated Red Blood Cells 0 /100 WBC (0-0); Polychromasia Present; Total Cells Counted 200
[2018-09-17 05:29] LABS: ABG Base Excess -7.5 mmol/L; ABG HCO3 19 mmol/L (21-25); ABG Oxygen Saturation 97.9 % (94-97); ABG PCO2 42 mmHg (35-45); ABG PH 7.28 (7.35-7.45); ABG PO2 103 mmHg (83-108); ABG TCO2 21 mmol/L (19-24)
[2018-09-17 05:44] LABS: Glucose,Whole Blood 127 mg/dL (75-99)
[2018-09-17] MEDS: HEPARIN SOD,PORK IN 0.45% NACL 25,000 UNIT in 0.45% NACL 1 500ML.BAG IV SCH ×2 (05:55→17:58)
[2018-09-17] MEDS: INSULIN ASPART 100 UNIT/ML 1 ML 10 ML VIAL SQ SCH ×3 (05:59→18:22)
[2018-09-17 06:08] LABS: Calcium 8.1 mg/dL (8.4-10.2); Magnesium 2.6 mg/dL (1.6-2.3)
[2018-09-17 06:13] LABS: Potassium 5.1 mmol/L (3.5-5.1)
[2018-09-17 06:16] LABS: Phosphorus 9.2 mg/dL (2.5-4.5)
--- NOTE | 2018-09-17 06:54 | P.PN ---
Subjective Progress Note Date: 09/17/18 Principal diagnosis: Pulmonary embolization This is a pleasant 52-year-old gentleman with a past medical history significant for DVT and PE was admitted to the hospital with shortness of breath and was diagnosed with massive bilateral PE. The patient coded twice with PDA and he received CPR per protocol. He did also received TPA. On follow-up with the patient today, September 172017, he continues to be intubated on mechanical ventilation. He has been maintaining normal sinus mechanism. He has been on heparin. Lasix drip continues as well. Nephrology. The kidney function is worse and it creatinine today is 4.77. Overall the prognosis is very bad. There has been in discussion with the family regarding the [facility] care. The chest x-ray continues to show bilateral pleural effusion. Objective - Vital Signs Vital signs: Vital Signs Temp 99 F 09/17/18 05:00 Pulse 85 09/17/18 06:00 Resp 33 H 09/17/18 06:00 BP 119/65 09/16/18 14:03 Pulse Ox 94 L 09/17/18 06:00 Intake & Output 09/16/18 09/16/18 09/17/18 06:59 18:59 06:59 Intake Total 2087.968 3032.981 1621.814 Output Total 555 800 845 Balance 2793.608 0701.981 776.814 Weight 167.1 kg 167.1 kg 168.9 kg Intake: IV 396 423.1 386.0 Furosemide 250 mg In 110 10 Sodium Chloride 0.9% 225 ml @ 15 MG/HR 15 mls/hr IVP .[id number] [facility] Rx#: [id number] Piperacillin-Tazobactam 3 75.1 100.0 .375 gm In Dextrose/Water 1 50ml.bag @ 12.5 mls/hr IVPB Q8H [facility] Rx#: [id number] Pressure bag 66 78 66 Sodium Chloride 0.9% 1, 220 260 220 000 ml @ 20 mls/hr IV . Q24H [facility] Rx#:[id number] Intake, IV Titration 7764.114 7372.881 1019.814 Amount Furosemide 250 mg In 197.5 54.5 187.5 Sodium Chloride 0.9% 225 ml @ 15 MG/HR 15 mls/hr IVP .[id number] [facility] Rx#: [id number] Heparin Sod,Pork in 0.45% 500 958.883 437.604 NaCl 25,000 unit In 0.45 % NaCl 1 500ml.bag @ 14.9 UNITS/KG/HR 45.95 mls/hr IV .[id number] [facility] Rx#: [id number] Propofol 1,000 mg In 497.468 496.498 394.71 Empty Bag 1 bag @ Titrate IV .Q0M [facility] Rx#: [id number] Oral 0 Tube Feeding 259 390 156 Blood Product 620 Rc As-1 Unit 310 [id number] Rc Irr As1 Unit 310 [id number] Other 238 90 60 Output: Urine 555 800 845 Other: Voiding Method Indwelling Catheter Indwelling Catheter Indwelling Catheter ABP, PAP, CO, CI - Last Documented Arterial Blood Pressure 129/64 - Constitutional General appearance: Present: no acute distress - Labs CBC & Chem 7: 09/17/18 04:05 09/17/18 04:05 Labs: Abnormal Lab Results - Last 24 Hours (Table) 09/16/18 09/16/18 09/16/18 Range/Units 06:20 06:51 12:02 WBC (3.8-10.6) k/uL RBC (4.30-5.90) m/uL Hgb (13.0-17.5) gm/dL Hct (39.0-53.0) % RDW (11.5-15.5) % Neutrophils # (Manual) (1.3-7.7) k/uL Myelocytes # (Manual) (0) k/uL APTT (22.0-30.0) sec ABG pH 7.29 L (7.35-7.45) ABG HCO3 20 L (21-25) mmol/L ABG O2 Saturation 97.7 H (94-97) % Carbon Dioxide (22-30) mmol/L BUN (9-20) mg/dL Creatinine (0.66-1.25) mg/dL Glucose (74-99) mg/dL POC Glucose (mg/dL) 121 H (75-99) mg/dL Calcium (8.4-10.2) mg/dL Phosphorus (2.5-4.5) mg/dL Magnesium (1.6-2.3) mg/dL Crossmatch See Detail 09/16/18 09/16/18 09/16/18 Range/Units 12:18 16:17 18:07 WBC 19.9 H (3.8-10.6) k/uL RBC 2.84 L (4.30-5.90) m/uL Hgb 8.9 L D (13.0-17.5) gm/dL Hct 26.9 L (39.0-53.0) % RDW (11.5-15.5) % Neutrophils # (Manual) (1.3-7.7) k/uL Myelocytes # (Manual) (0) k/uL APTT (22.0-30.0) sec ABG pH (7.35-7.45) ABG HCO3 (21-25) mmol/L ABG O2 Saturation (94-97) % Carbon Dioxide (22-30) mmol/L BUN (9-20) mg/dL Creatinine (0.66-1.25) mg/dL Glucose (74-99) mg/dL POC Glucose (mg/dL) 124 H 129 H (75-99) mg/dL Calcium (8.4-10.2) mg/dL Phosphorus (2.5-4.5) mg/dL Magnesium (1.6-2.3) mg/dL Crossmatch 09/16/18 09/17/18 09/17/18 Range/Units 23:39 04:05 04:05 WBC 18.8 H (3.8-10.6) k/uL RBC 2.38 L (4.30-5.90) m/uL Hgb 7.6 L (13.0-17.5) gm/dL Hct 22.4 L (39.0-53.0) % RDW 15.9 H (11.5-15.5) % Neutrophils # (Manual) 13.70 H (1.3-7.7) k/uL Myelocytes # (Manual) 2.44 H (0) k/uL APTT (22.0-30.0) sec ABG pH (7.35-7.45) ABG HCO3 (21-25) mmol/L ABG O2 Saturation (94-97) % Carbon Dioxide 16 L (22-30) mmol/L BUN 74 H (9-20) mg/dL Creatinine 4.77 H (0.66-1.25) mg/dL Glucose 111 H (74-99) mg/dL POC Glucose (mg/dL) 131 H (75-99) mg/dL Calcium 8.1 L (8.4-10.2) mg/dL Phosphorus 9.2 H* (2.5-4.5) mg/dL Magnesium 2.6 H (1.6-2.3) mg/dL Crossmatch 09/17/18 09/17/18 09/17/18 Range/Units 04:56 05:42 05:45 WBC (3.8-10.6) k/uL RBC (4.30-5.90) m/uL Hgb (13.0-17.5) gm/dL Hct (39.0-53.0) % RDW (11.5-15.5) % Neutrophils # (Manual) (1.3-7.7) k/uL Myelocytes # (Manual) (0) k/uL APTT 48.8 H (22.0-30.0) sec ABG pH 7.28 L (7.35-7.45) ABG HCO3 19 L (21-25) mmol/L ABG O2 Saturation 97.9 H (94-97) % Carbon Dioxide (22-30) mmol/L BUN (9-20) mg/dL Creatinine (0.66-1.25) mg/dL Glucose (74-99) mg/dL POC Glucose (mg/dL) 127 H (75-99) mg/dL Calcium (8.4-10.2) mg/dL Phosphorus (2.5-4.5) mg/dL Magnesium (1.6-2.3) mg/dL Crossmatch Microbiology - Last 24 Hours (Table) 09/12/18 01:35 Blood Culture - Preliminary Blood No Growth after 120 hours Assessment and Plan Assessment: Assessment Massive PE History of DVT PE in the past Morbid obesity Status post cardiopulmonary arrest Plan Continue the current medical regimen Continue monitor the hemoglobin. The patient is in process of receiving 2 units of packed RBC. The patient has been off Levophed The prognosis is very poor. Follow-up with the patient.
[2018-09-17] MEDS: AMIODARONE 200 MG TAB PO SCH ×2 (09:20→20:01)
[2018-09-17] MEDS: PANTOPRAZOLE 40 MG/10 ML VIAL IVP SCH (09:21)
[2018-09-17] MEDS: CALCIUM ACETATE 667 MG CAP PO SCH ×3 (09:21→18:28)
[2018-09-17] MEDS: CHLORHEXIDINE GLUCONATE 15 ML CUP MUCOUS MEM SCH ×2 (09:22→20:01)
--- NOTE | 2018-09-17 10:36 | XR ---
EXAMINATION TYPE: XR chest 1V portable DATE OF EXAM: 09/17/2018 COMPARISON: Prior chest x-ray 09/16/2018 HISTORY: Abnormal chest x-ray, pulmonary embolism, follow-up TECHNIQUE: Single frontal view of the chest is obtained. FINDINGS: Endotracheal tube and NG tube, left jugular central venous catheter are overlying appropri ate positions. There is no evident pneumothorax. Bibasilar increased density persists, there is perih ilar airspace disease. Probable basilar effusions. IMPRESSION: Findings are similar to prior exam. Correlate for congestive heart failure. Pneumonia no t excluded. Follow-up recommended.
[2018-09-17 11:56] LABS: Glucose,Whole Blood 139 mg/dL (75-99)
[2018-09-17] MEDS: MULTIVITAMINS, THERA 1 EACH TAB PO SCH (12:50)
--- NOTE | 2018-09-17 12:55 | P.PN ---
Subjective Patient is seen in follow-up for acute kidney injury. His baseline creatinine is 1. Renal function is worsening with creatinine up to 4.77 today. Patient is on IV heparin for bilateral pulmonary embolism. He also suffered 2 episodes of cardiopulmonary arrest on September 09. He is currently intubated and sedated. He also has significant lower extremity edema. He was started on Lasix drip at 10 mL an hour yesterday - now at 15 cc/hr. He is off Levophed. Urine output 100 per hour. Hemoglobin 5.9 09/16 s/p pRBCS - 7.6 today. Vital signs are stable. Off Levophed. General: The patient appeared well nourished and normally developed. HEENT: Head exam is unremarkable. Neck is without jugular venous distension. Intubated. LUNGS: Breath sounds decreased. HEART: Rate and Rhythm are regular. First and second heart sounds normal. No murmurs, rubs or gallops. ABDOMEN: Abdominal exam reveals normal bowel sounds. Non-tender and non- distended. No evidence of peritonitis. EXTREMITITES: 2+ edema. Chronic skin changes noted. Objective - Vital Signs Vital signs: Vital Signs Temp 98.7 F 09/17/18 08:00 Pulse 88 09/17/18 11:31 Resp 33 H 09/17/18 11:00 BP 119/65 09/16/18 14:03 Pulse Ox 95 09/17/18 11:00 Intake & Output 09/16/18 09/17/18 09/17/18 18:59 06:59 18:59 Intake Total 3032.981 1621.814 343.687 Output Total 800 845 515 Balance 2232.981 776.814 -171.313 Weight 167.1 kg 168.9 kg Intake: IV 423.1 386.0 130 Furosemide 250 mg In 10 Sodium Chloride 0.9% 225 ml @ 15 MG/HR 15 mls/hr IVP .[id number] [facility] Rx#: [id number] Piperacillin-Tazobactam 3 75.1 100.0 .375 gm In Dextrose/Water 1 50ml.bag @ 12.5 mls/hr IVPB Q8H [facility] Rx#: [id number] Pressure bag 78 66 30 Sodium Chloride 0.9% 1, 260 220 100 000 ml @ 20 mls/hr IV . Q24H [facility] Rx#:[id number] Intake, IV Titration 8927.264 3924.814 123.687 Amount Furosemide 250 mg In 54.5 187.5 Sodium Chloride 0.9% 225 ml @ 15 MG/HR 15 mls/hr IVP .[id number] [facility] Rx#: [id number] Heparin Sod,Pork in 0.45% 958.883 437.604 NaCl 25,000 unit In 0.45 % NaCl 1 500ml.bag @ 14.9 UNITS/KG/HR 45.95 mls/hr IV .[id number] [facility] Rx#: [id number] Propofol 1,000 mg In 496.498 394.71 123.687 Empty Bag 1 bag @ Titrate IV .Q0M [facility] Rx#: [id number] Tube Feeding 390 156 90 Blood Product 620 Rc As-1 Unit 310 [id number] Rc Irr As1 Unit 310 [id number] Other 90 60 Output: Urine 800 845 515 Other: Voiding Method Indwelling Catheter Indwelling Catheter Indwelling Catheter ABP, PAP, CO, CI - Last Documented Arterial Blood Pressure 168/83 - Labs CBC & Chem 7: 09/17/18 04:05 09/17/18 04:05 Labs: Abnormal Lab Results - Last 24 Hours (Table) 09/16/18 09/16/18 09/16/18 Range/Units 06:20 16:17 18:07 WBC 19.9 H (3.8-10.6) k/uL RBC 2.84 L (4.30-5.90) m/uL Hgb 8.9 L D (13.0-17.5) gm/dL Hct 26.9 L (39.0-53.0) % RDW (11.5-15.5) % Neutrophils # (Manual) (1.3-7.7) k/uL Myelocytes # (Manual) (0) k/uL APTT (22.0-30.0) sec ABG pH (7.35-7.45) ABG HCO3 (21-25) mmol/L ABG O2 Saturation (94-97) % Carbon Dioxide (22-30) mmol/L BUN (9-20) mg/dL Creatinine (0.66-1.25) mg/dL Glucose (74-99) mg/dL POC Glucose (mg/dL) 129 H (75-99) mg/dL Calcium (8.4-10.2) mg/dL Phosphorus (2.5-4.5) mg/dL Magnesium (1.6-2.3) mg/dL Crossmatch See Detail 09/16/18 09/17/18 09/17/18 Range/Units 23:39 04:05 04:05 WBC 18.8 H (3.8-10.6) k/uL RBC 2.38 L (4.30-5.90) m/uL Hgb 7.6 L (13.0-17.5) gm/dL Hct 22.4 L (39.0-53.0) % RDW 15.9 H (11.5-15.5) % Neutrophils # (Manual) 13.70 H (1.3-7.7) k/uL Myelocytes # (Manual) 2.44 H (0) k/uL APTT (22.0-30.0) sec ABG pH (7.35-7.45) ABG HCO3 (21-25) mmol/L ABG O2 Saturation (94-97) % Carbon Dioxide 16 L (22-30) mmol/L BUN 74 H (9-20) mg/dL Creatinine 4.77 H (0.66-1.25) mg/dL Glucose 111 H (74-99) mg/dL POC Glucose (mg/dL) 131 H (75-99) mg/dL Calcium 8.1 L (8.4-10.2) mg/dL Phosphorus 9.2 H* (2.5-4.5) mg/dL Magnesium 2.6 H (1.6-2.3) mg/dL Crossmatch 09/17/18 09/17/18 09/17/18 Range/Units 04:56 05:42 05:45 WBC (3.8-10.6) k/uL RBC (4.30-5.90) m/uL Hgb (13.0-17.5) gm/dL Hct (39.0-53.0) % RDW (11.5-15.5) % Neutrophils # (Manual) (1.3-7.7) k/uL Myelocytes # (Manual) (0) k/uL APTT 48.8 H (22.0-30.0) sec ABG pH 7.28 L (7.35-7.45) ABG HCO3 19 L (21-25) mmol/L ABG O2 Saturation 97.9 H (94-97) % Carbon Dioxide (22-30) mmol/L BUN (9-20) mg/dL Creatinine (0.66-1.25) mg/dL Glucose (74-99) mg/dL POC Glucose (mg/dL) 127 H (75-99) mg/dL Calcium (8.4-10.2) mg/dL Phosphorus (2.5-4.5) mg/dL Magnesium (1.6-2.3) mg/dL Crossmatch 09/17/18 Range/Units 11:55 WBC (3.8-10.6) k/uL RBC (4.30-5.90) m/uL Hgb (13.0-17.5) gm/dL Hct (39.0-53.0) % RDW (11.5-15.5) % Neutrophils # (Manual) (1.3-7.7) k/uL Myelocytes # (Manual) (0) k/uL APTT (22.0-30.0) sec ABG pH (7.35-7.45) ABG HCO3 (21-25) mmol/L ABG O2 Saturation (94-97) % Carbon Dioxide (22-30) mmol/L BUN (9-20) mg/dL Creatinine (0.66-1.25) mg/dL Glucose (74-99) mg/dL POC Glucose (mg/dL) 139 H (75-99) mg/dL Calcium (8.4-10.2) mg/dL Phosphorus (2.5-4.5) mg/dL Magnesium (1.6-2.3) mg/dL Crossmatch Microbiology - Last 24 Hours (Table) 09/12/18 01:35 Blood Culture - Preliminary Blood No Growth after 120 hours Assessment and Plan Plan: Assessment: 1. Acute kidney injury secondary to ATN secondary to hypotension and hemodynamic instability. Baseline creatinine is 1 and elevated at 4.77 today. No evidence of hydronephrosis noted on renal ultrasound. 2. Bilateral pulmonary embolism status post TPA maintained on IV heparin. 3. Right lower extremity DVT. 4. Hypotension now off Levophed. Cortisol level normal. 5. Acute hypoxic respiratory failure secondary to PE. 6. Hyperphosphatemia secondary to acute kidney injury. 7. SVT now in sinus rhythm. Cardiology following. 8. Volume overload. 9. Acute blood loss anemia with hemoglobin of 5.9 10/24 s/p pRBCs. Better. 10. Metabolic acidosis secondary to ACOSTA. Expect improvement post-HD. Plan: Maintain Lasix drip to 15 mL an hour. Maintain phoslo 3 times daily. Maintain tube feeds. Avoid nephrotoxins. Continue to monitor renal function and urine output. Due to severe hypervolemia, will start CAPPING MACHINE [employer]PERATOR today. Consult vascular surgery for catheter placement. Case discussed with the family at bedside. They are agreeable to proceed with renal replacement therapy.
--- NOTE | 2018-09-17 14:09 | P.PN ---
Subjective Progress Note Date: 09/17/18 On 09/14/2018, I am seeing this patient for a follow-up in the intensive care unit. The patient was in following a massive but the pulmonary embolism, right ventricular enlargement and right ventricular strain pattern with subsequent hemodynamic collapse and cardiac arrest. The patient is post TPA infusion at time of the code. The patient is currently on IV heparin. In terms of his breathing, the patient is intubated on a mechanical ventilator. The patient is currently on an assist-control mode at the rate of 32 with a tidal volume of 500 and FiO2 of 50% with a PEEP of 10. The chest x-ray from today shows adequate positioning of 82. There is some atelectatic changes and infiltration of the right lung base. Meanwhile, the blood gases from today showed a pH of 7.32 with a pCO2 of 48 and pO2 of 116 and this was done on the above-mentioned ventilator settings. No significant orotracheal secretions. Breath other are equal and bilateral. Airway pressures are not elevated. Hemodynamically, the patient is on pressors at 3 mics of norepinephrine infusion for blood pressure support. He has been aggressively resuscitated IV fluids and a noted significant amount of weight gain over the past several days. The patient was given a dose of Lasix yesterday. In addition the patient was having episodes of SVTs throughout his current hospitalization and he was treated with adenosine and currently is on amiodarone orally 5 mg by mouth twice a day and his cardiac rhythm is normalized and his in sinus rhythm. Echocardiogram, the patient has an ejection fraction of 6065%. The rhythm to Doxil septal motion abnormality consistent with right ventricular volume/strain pattern. Of interest also is development of acute kidney injury. The patient came in initially with a normal renal function. Subsequently creatinine came up to 1.7 and currently is up to 2.41. He was given a dose of Lasix yesterday and none since yesterday. The patient is nonoliguric. The net fluid balance over the past 24 hours is +825 mL. He is having loose liquidy bowel movement. He is currently on vital 1.2 at the rate of 35 mL an hour. He is sedated with Diprivan. Lower oximetry is a swallow with extensive swelling of the right lower extremity which also has a DVT. The patient is having on and off low- grade fever and the patient is currently on IV Ancef. Most recent hemoglobin is at 8.0. White cell count is not elevated at 7.1. He remains on IV heparin regarding the massive bilateral pulmonary embolism. On 09/15/2018 I'm seeing this patient in follow-up in the intensive care unit. This morning the patient remains sedated on Diprivan, comfortable. A sedation holiday was given to this patient yesterday now was told that he was able to follow commands and his mentation seems to be intact despite his cardiac arrest. The patient remains sedated for this morning. Intubated on a mechanical ventilator. He is an assist-control mode of ventilation at the rate of 32 with a tidal volume of 500 and an FiO2 of 50% and PEEP of 7. Morning blood gases showed a pH of 7.35 with a pCO2 of 41 and pO2 of 124. Chest x-ray shows smaller lung volumes. There is evidence of better pleural effusion and pulmonary vessel congestion. ET tube is in a good location. No significant orotracheal secretions. The patient has been significant volume overload since admission to the hospital. I checked his fluid balance since admission and the patient has been is significant amount of positive fluid balance due to fluid resuscitation. Echo of the heart showed a preserved LV function yet the patient had a component of RV strain/overload related to his recent pulmonary embolism. I don't think this patient's chronic pulmonary hypertension. I do not think the patient has obesity hypoventilation syndrome knowing that his serum bicarb was low and within normal limits at a time of admission. In any rate, there is a component of fluid overload and the patient would benefit from diuresis. I did not diuresis patient yesterday based on the fact that the creatinine was on the rise. I'm awaiting follow-up creatinine levels from today and nephrology has also been consult on the case. He is afebrile for today. No leukocytosis. Hemoglobin stable at 7.5. Is tolerating his tube feeds. Massive edema lower extremity is bilaterally more so on the right. Cardiac rhythm remains sinus. No other significant events overnight. Antibiotic as an broadened and IV Ancef was discontinued yesterday and patient is currently on IV Zosyn. On 09/16/2018, I'm seeing this patient for a follow-up. The patient remains sedated on Diprivan. The patient admits intubated on a mechanical ventilator. On today's evaluation, the patient is on a 50 mics of Diprivan for sedation. He is receiving enteral feeding for nutritional support. He has demonstrated drop in hemoglobin down to 5.9 yet, there is no evidence of any exogenous bleeding. There is no evidence of any melanotic stool or any bloody output from the orotracheal tube or the NG tube. A total of 2 units of packed RBC was ordered. The patient was kept on IV heparin and PTT is therapeutic at 50. Also , the patient is still on a mechanical ventilator. Vent settings today include an assist-control mode at the rate of 26, FiO2 of 50%, PEEP of 7 and tidal volume of 500. The blood gases from today showed a pH of 7.29 with a pCO2 of 45 and pO2 of 107. Obviously the patient has a component of mild acidosis which is related to respiratory factors and metabolic factors as the patient's serum bicarb drip down to 18. The chest x-ray shows evidence of bilateral consolidation pleural effusion. There is evidence of pulmonary edema that is rather diffuse. ET tube and NG tube are both in a good location and the patient has a left-sided PICC line noted. Note that the patient was started on diuretics yesterday based on the fact that he was getting into significant positive fluid balance of fluid overload. Currently the patient on Lasix drip at 10 mg an hour. Urine output is improved, however the patient is still producing a low urine output around 30 mL an hour and the net fluid balance is positive and has been consistent positive over the past 1 week. He demonstrated signs of fluid overload the massive edema both in the upper and lower extremities more so in the right lower extremity. His renal function is impaired. The patient suffered an acute kidney injury. This is felt to be related to an ATN post cardiac arrest and possibly some contribution from contrast administration. The creatinine is up to 3.8 with a BUN of 57. The rest of the I's show a mild component of non-anion gap metabolic acidosis. He is afebrile. Is covered empirically with IV Zosyn for any possible aspiration pneumonia. No other significant events overnight. He is taken off pressors for now. On 09/17/2018, I'm seeing this patient for a follow-up. Unfortunately not much of the progress has been done on this patient's case since yesterday. In fact the patient's renal function is progressively getting worse and the patient is getting progressively more edematous and swollen especially in the lower extremities. In fact there is considerable amount of edema in the skin is weeping at this point in time. The patient is sedated on a mechanical ventilator. The patient remains on the same vent setting. I was able to cut down the PEEP down to 5 with an FiO2 of 40% at the rate of 26 and a tidal volume of 500. Chest x-ray is not showing any significant changes and the patient has by the pulmonary infiltrates most on the lower lobes and this could be related to fluid overload/pneumonia. At gases from today showed a pH of 7.28 with a pCO2 of 42 and pO2 of 103. The patient is developing a component of non-anion gap metabolic acidosis along with progressive worsening the renal function. A patient's serum bicarb is down to 16 and the creatinine is up to 4.7. The patient is tolerating his tube feeds. Minimal amount of bloody suctioning material from the orotracheal tube. He received a total of 2 units of packed RBCs yesterday. His hemoglobin today is up to 7.6. He remains on IV heparin with PTT being therapeutic at 48. The patient has normal platelet counts. He remains afebrile. He is on utilizing any pressors. I had a discussion with the sales attendant building materials and we are the progress of recommending dialysis for this patient. He will likely need a temporary dialysis catheter insertion today and dialysis for significant fluid overload the setting of an acute kidney injury. Objective - Vital Signs Vital signs: Vital Signs Temp 98.3 F 09/17/18 13:00 Pulse 89 09/17/18 13:00 Resp 33 H 09/17/18 13:00 BP 119/65 09/16/18 14:03 Pulse Ox 94 L 09/17/18 13:00 Intake & Output 09/16/18 09/17/18 09/17/18 18:59 06:59 18:59 Intake Total 3032.981 1621.814 861.417 Output Total 800 845 891 Balance 2232.981 776.814 -29.583 Weight 167.1 kg 168.9 kg Intake: IV 423.1 386.0 182 Furosemide 250 mg In 10 Sodium Chloride 0.9% 225 ml @ 15 MG/HR 15 mls/hr IVP .[id number] [facility] Rx#: [id number] Piperacillin-Tazobactam 3 75.1 100.0 20 .375 gm In Dextrose/Water 1 50ml.bag @ 12.5 mls/hr IVPB Q8H [facility] Rx#: [id number] Pressure bag 78 66 42 Sodium Chloride 0.9% 1, 260 220 120 000 ml @ 20 mls/hr IV . Q24H [facility] Rx#:[id number] Intake, IV Titration 1375.294 6430.814 541.417 Amount Furosemide 250 mg In 54.5 187.5 Sodium Chloride 0.9% 225 ml @ 15 MG/HR 15 mls/hr IVP .[id number] [facility] Rx#: [id number] Heparin Sod,Pork in 0.45% 958.883 437.604 401.522 NaCl 25,000 unit In 0.45 % NaCl 1 500ml.bag @ 14.9 UNITS/KG/HR 45.95 mls/hr IV .[id number] [facility] Rx#: [id number] Propofol 1,000 mg In 496.498 394.71 139.895 Empty Bag 1 bag @ Titrate IV .Q0M [facility] Rx#: [id number] Tube Feeding 390 156 138 Blood Product 620 Rc As-1 Unit 310 [id number] Rc Irr As1 Unit 310 [id number] Other 90 60 Output: Urine 800 845 890 Stool 1 Other: Voiding Method Indwelling Catheter Indwelling Catheter Indwelling Catheter ABP, PAP, CO, CI - Last Documented Arterial Blood Pressure 144/73 - Exam No acute distress, sedated, orally placed endotracheal tube and NG tube. No or minimal blood noted in the NG tube and certainly no bleeding from the mouth at this time. This morning, the patient is suggested the mechanical ventilator. No agitation. No restlessness. His nicely sedated. He is currently on 30 mics of the propofol infusion. HEENT examination is grossly unremarkable. Mucous membranes are moist. Neck supple. Full range of motion. No adenopathy thyromegaly or neck vein distention. The patient has a triple-lumen catheter in his neck left IJ area. Cardiovascular examination reveals regular rhythm rate. S1-S2 normal. No S3 or S4. No discernible murmur noted. Cardiac exam revealed the PMI to be normally situated and sized. The rhythm was regular and no extrasystoles were noted during several minutes of auscultation. The first and second heart sounds were normal and physiologic splitting of the second heart sound was noted. There were no murmurs, rubs, clicks, or gallops. Lungs reveal coarse bilateral breath sounds. Crackles are noted bilaterally in our bit worse today. Diffuse rhonchi are appreciated. No wheezes. Breath sounds are diminished throughout. Breath sounds are equal bilaterally. Abdomen is obese. Bowel sounds are noted. No masses appreciated.Abdominal exam revealed normal bowel sounds. The abdomen was soft, non-tender, and without masses, organomegaly, or appreciable enlargement of the abdominal aorta. Extremities. There is some chronic venous stasis changes. There is significant amount of weeping from the skin surface.. Some mild livedo reticularis. Note that the right lower extremity is more swollen compared to the left. This is 2 pitting edema in the right lower extremity. Skin is reveal some chronic venous stasis changes. The patient has some liquid weeping from the skin surface Neurologic examination could not be adequately assessed as the patient is currently sedated. The patient is receiving daily sedation holidays. - Labs CBC & Chem 7: 09/17/18 04:05 09/17/18 04:05 Labs: Abnormal Lab Results - Last 24 Hours (Table) 09/16/18 09/16/18 09/16/18 Range/Units 06:20 16:17 18:07 WBC 19.9 H (3.8-10.6) k/uL RBC 2.84 L (4.30-5.90) m/uL Hgb 8.9 L D (13.0-17.5) gm/dL Hct 26.9 L (39.0-53.0) % RDW (11.5-15.5) % Neutrophils # (Manual) (1.3-7.7) k/uL Myelocytes # (Manual) (0) k/uL APTT (22.0-30.0) sec ABG pH (7.35-7.45) ABG HCO3 (21-25) mmol/L ABG O2 Saturation (94-97) % Carbon Dioxide (22-30) mmol/L BUN (9-20) mg/dL Creatinine (0.66-1.25) mg/dL Glucose (74-99) mg/dL POC Glucose (mg/dL) 129 H (75-99) mg/dL Calcium (8.4-10.2) mg/dL Phosphorus (2.5-4.5) mg/dL Magnesium (1.6-2.3) mg/dL Crossmatch See Detail 09/16/18 09/17/18 09/17/18 Range/Units 23:39 04:05 04:05 WBC 18.8 H (3.8-10.6) k/uL RBC 2.38 L (4.30-5.90) m/uL Hgb 7.6 L (13.0-17.5) gm/dL Hct 22.4 L (39.0-53.0) % RDW 15.9 H (11.5-15.5) % Neutrophils # (Manual) 13.70 H (1.3-7.7) k/uL Myelocytes # (Manual) 2.44 H (0) k/uL APTT (22.0-30.0) sec ABG pH (7.35-7.45) ABG HCO3 (21-25) mmol/L ABG O2 Saturation (94-97) % Carbon Dioxide 16 L (22-30) mmol/L BUN 74 H (9-20) mg/dL Creatinine 4.77 H (0.66-1.25) mg/dL Glucose 111 H (74-99) mg/dL POC Glucose (mg/dL) 131 H (75-99) mg/dL Calcium 8.1 L (8.4-10.2) mg/dL Phosphorus 9.2 H* (2.5-4.5) mg/dL Magnesium 2.6 H (1.6-2.3) mg/dL Crossmatch 09/17/18 09/17/18 09/17/18 Range/Units 04:56 05:42 05:45 WBC (3.8-10.6) k/uL RBC (4.30-5.90) m/uL Hgb (13.0-17.5) gm/dL Hct (39.0-53.0) % RDW (11.5-15.5) % Neutrophils # (Manual) (1.3-7.7) k/uL Myelocytes # (Manual) (0) k/uL APTT 48.8 H (22.0-30.0) sec ABG pH 7.28 L (7.35-7.45) ABG HCO3 19 L (21-25) mmol/L ABG O2 Saturation 97.9 H (94-97) % Carbon Dioxide (22-30) mmol/L BUN (9-20) mg/dL Creatinine (0.66-1.25) mg/dL Glucose (74-99) mg/dL POC Glucose (mg/dL) 127 H (75-99) mg/dL Calcium (8.4-10.2) mg/dL Phosphorus (2.5-4.5) mg/dL Magnesium (1.6-2.3) mg/dL Crossmatch 09/17/18 Range/Units 11:55 WBC (3.8-10.6) k/uL RBC (4.30-5.90) m/uL Hgb (13.0-17.5) gm/dL Hct (39.0-53.0) % RDW (11.5-15.5) % Neutrophils # (Manual) (1.3-7.7) k/uL Myelocytes # (Manual) (0) k/uL APTT (22.0-30.0) sec ABG pH (7.35-7.45) ABG HCO3 (21-25) mmol/L ABG O2 Saturation (94-97) % Carbon Dioxide (22-30) mmol/L BUN (9-20) mg/dL Creatinine (0.66-1.25) mg/dL Glucose (74-99) mg/dL POC Glucose (mg/dL) 139 H (75-99) mg/dL Calcium (8.4-10.2) mg/dL Phosphorus (2.5-4.5) mg/dL Magnesium (1.6-2.3) mg/dL Crossmatch Microbiology - Last 24 Hours (Table) 09/12/18 01:35 Blood Culture - Preliminary Blood No Growth after 120 hours Assessment and Plan Plan: Assessment 1 acute hypoxic respiratory failure secondary to massive bilateral pulmonary embolism, status post cardiac pulmonary arrest, status post TPA treatment, currently on IV heparin. The patient remains intubated on a mechanical ventilator. The subsequent follow-up chest x-ray shows evidence of interstitial edema and bilateral pleural effusion and possibly a component of bilateral pneumonia. The patient is currently on IV Zosyn. The patient is in significant fluid overload in the setting of an acute kidney injury. Creatinine is up to 4.7. Chest x-ray findings could be related to volume overload/pneumonia/post pulmonary embolism atelectasis/infiltration. We are treating the patient with a combination of IV Zosyn, IV heparin and will also initiate dialysis today and I have discussed this with the sales attendant building materials. 2 acute respiratory failure secondary to above, currently intubated on a mechanical ventilator, secondary to above 3 massive pulmonary embolism with right ventricular strain and dilatation with subsequent cardiac arrest, without clear evidence of any anoxic or hypoxic encephalopathy. She remains on IV heparin. No evidence of an acute bleeding at this point in time and hemoglobin is stable at 7.6. 4 acute cardio-pulmonary arrest secondary to massive PE, post TPA administration 5 acute hypotension,, this has recovered and the patient is currently off pressors 6 acute kidney injury with a creatinine with signs of massive fluid overload. Creatinine is up to 4.7 and the patient has developed a component of non-anion gap metabolic acidosis. 7 acute DVT of the right lower extremity 8 morbid obesity with a BMI of 46.5 9 history of smoking 10 history of anxiety 11 acute on top of chronic anemia with a drop in hemoglobin down to 5. without evidence of any external or exogenous bleeding, the patient got transfused with a total of 2 units of packed RBC and hemoglobin is up to 7.6 12 bilateral lower lobe pneumonia suspected, possibly of an aspiration type, on the recent chest x-ray shows bilateral lower lobe consolidation. 13 episodes of SVT, currently in sinus rhythm 14 morbid obesity with a BMI of 46.8 Plan Continue patient on sedation and kept on the sedation to a reasonable level to allow some degree of arousal. Continue vent support no changes will be done. Continue IV heparin. Continue IV Zosyn. Continued IV Lasix knowing that this is not helping with diuresing the patient will likely need dialysis. The patient will have a temporary dialysis catheter insertion to be followed by hemodialysis today. Continue enteral feeding for nutritional support. Monitor hemoglobin. Monitor renal function. Monitor electrolytes. Condition remains critical. We'll continue to follow make further recommendations accordingly. This evaluation was done and more than 30 minutes. Time with Patient: Greater than 30
[2018-09-17 18:18] LABS: Glucose,Whole Blood 125 mg/dL (75-99)
--- NOTE | 2018-09-17 19:18 | PCN ---
PROCEDURE NOTE PREOP DIAGNOSIS: Acute on chronic renal failure. PROCEDURE: Placement of a dialysis catheter right femoral approach. DESCRIPTION OF PROCEDURE: The patient was seen in the room and the right groin was prepped and drapes applied in the usual sterile manner. 1% lidocaine was infiltrated into the right groin area. Ultrasound-guided micropuncture introduced right femoral vein and micropuncture guidewire was passed and 4-Pashto dilator advanced on top of the guidewire. After that, we passed a regular guidewire, the guidewire was parked at the vena cava and then we passed a dilator catheter on the top of the guidewire. Then we placed a dialysis catheter on top of the guidewire and flushed with heparin saline and hep-locked and secured with 3-0 Vicryl. Dressing applied. Patient tolerated the procedure well. MMDEBORAHL / HYACINTHN: [id number] /
[2018-09-17] MEDS: SODIUM CHLORIDE 0.9% 1,000 ML IV SCH (20:09)
[2018-09-18] LABS: Glucose,Whole Blood 124 mg/dL (75-99)
[2018-09-18] MEDS: INSULIN ASPART 100 UNIT/ML 1 ML 10 ML VIAL SQ SCH ×5 (00:16→23:53)
[2018-09-18] MEDS: PIPERACILLIN-TAZOBACTAM 3.375 GM in DEXTROSE/WATER 1 50ML.BAG IVPB SCH ×3 (01:13→19:02)
[2018-09-18] MEDS: PROPOFOL 1,000 MG in EMPTY BAG 1 BAG IV SCH ×3 (01:14→08:25)
[2018-09-18] MEDS: IPRATROPIUM-ALBUTEROL 3 ML NEB INHALATION SCH ×6 (03:05→23:12)
[2018-09-18] MEDS: HEPARIN SOD,PORK IN 0.45% NACL 25,000 UNIT in 0.45% NACL 1 500ML.BAG IV SCH ×3 (03:30→22:31)
[2018-09-18 05:22] LABS: Anisocytosis Slight; HCT 27.9 % (39.0-53.0); MCHC 33.5 g/dL (31.0-37.0); MCV 92.6 fL (80.0-100.0); RBC 3.02 m/uL (4.30-5.90); RDW 16.3 % (11.5-15.5)
[2018-09-18 05:26] LABS: HGB 9.4 gm/dL (13.0-17.5)
[2018-09-18 05:27] LABS: ABG Base Excess -4.1 mmol/L; ABG HCO3 23 mmol/L (21-25); ABG Oxygen Saturation 97.1 % (94-97); ABG PCO2 47 mmHg (35-45); ABG PH 7.29 (7.35-7.45); ABG PO2 113 mmHg (83-108); ABG TCO2 24 mmol/L (19-24)
[2018-09-18 05:47] LABS: Band Neutrophils % 15 %; Eosinophils # (M) 0.78 k/uL (0-0.7); Lymphocytes # (M) 1.04 k/uL (1.0-4.8); Metamyelocytes # (M) 3.11 k/uL (0); Metamyelocytes % 12 %; Monocytes # (M) 1.04 k/uL (0-1.0); Myelocytes # (M) 0.52 k/uL (0); Myelocytes % 2 %; Neutrophils % (M) 61 %; Nucleated Red Blood Cells 1 /100 WBC (0-0); Total Cells Counted 200; WBC 25.9 k/uL (3.8-10.6)
[2018-09-18 05:48] LABS: Large Platelets Present
[2018-09-18 05:49] LABS: Polychromasia Present
[2018-09-18 05:51] LABS: Platelet Count 458 k/uL (150-450)
[2018-09-18 06:02] LABS: Glucose,Whole Blood 114 mg/dL (75-99)
[2018-09-18 06:11] LABS: Calcium 8.6 mg/dL (8.4-10.2); Magnesium 2.9 mg/dL (1.6-2.3); Potassium 3.9 mmol/L (3.5-5.1)
[2018-09-18 06:14] LABS: Phosphorus 9.7 mg/dL (2.5-4.5)
--- NOTE | 2018-09-18 07:33 | P.PN ---
Subjective Progress Note Date: 09/18/18 Principal diagnosis: Pulmonary embolization This is a pleasant 52-year-old gentleman with a past medical history significant for DVT and PE was admitted to the hospital with shortness of breath and was diagnosed with massive bilateral PE. The patient coded twice with PEA and he received CPR per protocol. He did also received TPA. On follow-up with the patient today, 09/18/2018, the patient continues to be intubated on mechanical ventilation. This is his ninth day of intubation. The ICU team has been talking to the family regarding possible Comfort Care but the patient still full code at this point. He has been maintaining normal sinus mechanism and no more episodes of SVT so far. He is on amiodarone by mouth. Hemodynamically he continues to be stable and he is off Levophed. Unfortunately , the creatinine is worse and is 4.80 today. Nephrology is on the case. A dialysis catheter was placed yesterday. He continues to be on Lasix drip and also continues to be on heparin IV. The prognosis overall is bad. Objective - Vital Signs Vital signs: Vital Signs Temp 97.4 F L 09/18/18 04:00 Pulse 74 09/18/18 07:00 Resp 26 H 09/18/18 07:00 BP 119/65 09/16/18 14:03 Pulse Ox 99 09/18/18 07:00 Intake & Output 09/17/18 09/18/18 09/18/18 18:59 06:59 18:59 Intake Total 0940.529 1064 26 Output Total 1391 1285 75 Balance -86.290 -73 -49 Weight 157.1 kg Intake: IV 352 312 26 Piperacillin-Tazobactam 3 50 .375 gm In Dextrose/Water 1 50ml.bag @ 12.5 mls/hr IVPB Q8H [facility] Rx#: [id number] Pressure bag 72 72 6 Sodium Chloride 0.9% 1, 230 240 20 000 ml @ 20 mls/hr IV . Q24H [facility] Rx#:[id number] Intake, IV Titration 694.710 600 Amount Heparin Sod,Pork in 0.45% 500.000 500 NaCl 25,000 unit In 0.45 % NaCl 1 500ml.bag @ 14.9 UNITS/KG/HR 45.95 mls/hr IV .[id number] [facility] Rx#: [id number] Propofol 1,000 mg In 194.710 100 Empty Bag 1 bag @ Titrate IV .Q0M [facility] Rx#: [id number] Tube Feeding 258 240 Other 60 Output: Urine 1390 1285 75 Stool 1 Other: Voiding Method Indwelling Catheter Indwelling Catheter # Bowel Movements 1 ABP, PAP, CO, CI - Last Documented Arterial Blood Pressure 105/59 - Constitutional General appearance: Present: no acute distress - Respiratory Respiratory: bilateral: diminished - Cardiovascular Rhythm: regular Heart sounds: normal: S1, S2 - Labs CBC & Chem 7: 09/18/18 05:00 09/18/18 05:00 Labs: Abnormal Lab Results - Last 24 Hours (Table) 09/17/18 09/17/18 09/17/18 Range/Units 11:55 18:17 23:58 WBC (3.8-10.6) k/uL RBC (4.30-5.90) m/uL Hgb (13.0-17.5) gm/dL Hct (39.0-53.0) % RDW (11.5-15.5) % Plt Count (150-450) k/uL Neutrophils # (Manual) (1.3-7.7) k/uL Monocytes # (Manual) (0-1.0) k/uL Eosinophils # (Manual) (0-0.7) k/uL Metamyelocytes # (Man) (0) k/uL Myelocytes # (Manual) (0) k/uL Nucleated RBCs (0-0) /100 WBC APTT (22.0-30.0) sec BUN (9-20) mg/dL Creatinine (0.66-1.25) mg/dL Glucose (74-99) mg/dL POC Glucose (mg/dL) 139 H 125 H 124 H (75-99) mg/dL Phosphorus (2.5-4.5) mg/dL Magnesium (1.6-2.3) mg/dL 09/18/18 09/18/18 09/18/18 Range/Units 05:00 05:00 05:00 WBC 25.9 H (3.8-10.6) k/uL RBC 3.02 L (4.30-5.90) m/uL Hgb 9.4 L D (13.0-17.5) gm/dL Hct 27.9 L (39.0-53.0) % RDW 16.3 H (11.5-15.5) % Plt Count 458 H (150-450) k/uL Neutrophils # (Manual) 19.60 H (1.3-7.7) k/uL Monocytes # (Manual) 1.04 H (0-1.0) k/uL Eosinophils # (Manual) 0.78 H (0-0.7) k/uL Metamyelocytes # (Man) 3.11 H (0) k/uL Myelocytes # (Manual) 0.52 H (0) k/uL Nucleated RBCs 1 H (0-0) /100 WBC APTT 56.4 H (22.0-30.0) sec BUN 80 H (9-20) mg/dL Creatinine 4.79 H (0.66-1.25) mg/dL Glucose 110 H (74-99) mg/dL POC Glucose (mg/dL) (75-99) mg/dL Phosphorus 9.7 H* (2.5-4.5) mg/dL Magnesium 2.9 H (1.6-2.3) mg/dL 09/18/18 Range/Units 06:01 WBC (3.8-10.6) k/uL RBC (4.30-5.90) m/uL Hgb (13.0-17.5) gm/dL Hct (39.0-53.0) % RDW (11.5-15.5) % Plt Count (150-450) k/uL Neutrophils # (Manual) (1.3-7.7) k/uL Monocytes # (Manual) (0-1.0) k/uL Eosinophils # (Manual) (0-0.7) k/uL Metamyelocytes # (Man) (0) k/uL Myelocytes # (Manual) (0) k/uL Nucleated RBCs (0-0) /100 WBC APTT (22.0-30.0) sec BUN (9-20) mg/dL Creatinine (0.66-1.25) mg/dL Glucose (74-99) mg/dL POC Glucose (mg/dL) 114 H (75-99) mg/dL Phosphorus (2.5-4.5) mg/dL Magnesium (1.6-2.3) mg/dL Microbiology - Last 24 Hours (Table) 09/12/18 01:35 Blood Culture - Final Blood No Growth after 144 hours Assessment and Plan Assessment: Assessment Massive PE History of DVT PE in the past Morbid obesity Status post cardiopulmonary arrest Plan Continue the current medical regimen including amiodarone. Continue heparin IV and Lasix IV. Continue monitor the kidney function and electrolytes. Continue monitor the hemoglobin Follow-up on the chest x-ray. The prognosis is very poor. Follow-up with the patient.
[2018-09-18] MEDS: CALCIUM ACETATE 667 MG CAP PO SCH ×3 (10:31→19:02)
[2018-09-18] MEDS: AMIODARONE 200 MG TAB PO SCH ×2 (10:31→20:48)
[2018-09-18] MEDS: PANTOPRAZOLE 40 MG/10 ML VIAL IVP SCH (10:32)
[2018-09-18] MEDS: CHLORHEXIDINE GLUCONATE 15 ML CUP MUCOUS MEM SCH ×2 (10:32→20:48)
[2018-09-18] MEDS ORDERED: POTASSIUM BICARBONATE/CIT AC 20 MEQ TABLET.EFF NG-TUBE ONE (11:00)
[2018-09-18] MEDS: BUMETANIDE 12 MG in DEXTROSE 5% IN WATER 192 ML IV SCH ×2 (11:18)
[2018-09-18 11:56] LABS: Glucose,Whole Blood 100 mg/dL (75-99)
--- NOTE | 2018-09-18 12:06 | XR ---
EXAMINATION TYPE: XR chest 1V portable DATE OF EXAM: 09/18/2018 COMPARISON: Prior chest x-ray 09/17/2018 HISTORY: Pulmonary embolism, abnormal chest x-ray, intubated TECHNIQUE: Single frontal view of the chest is obtained. FINDINGS: Endotracheal tube and NG tube are overlying appropriate positions, side-port of the NG tub e may be cephalad to the level of the gastroesophageal junction. Left jugular central venous catheter is stable. No evident pneumothorax. Patchy bibasilar density persists, perihilar airspace disease is present. No evident pneumothorax. Heart remains enlarged. IMPRESSION: There may be underlying congestive heart failure or pneumonia, pulmonary infarct not exc luded, there may be associated effusions. Cardiomegaly. NG tube may be cephalad to the gastroesophage al junction.
--- NOTE | 2018-09-18 12:14 | P.PN ---
Subjective Patient is seen in follow-up for acute kidney injury. His baseline creatinine is 1. Renal function was worsening over the last few days with creatinine up to 4.77 yesterday. Patient is on IV heparin for bilateral pulmonary embolism. He also suffered 2 episodes of cardiopulmonary arrest on September 09. He is currently intubated and sedated. He also has significant lower extremity edema. He is maintained on Bumex drip and is nonoliguric. He is off Levophed. Continue to severe hypovolemia and worsening renal function, he was started on renal replacement therapy on September 17. Currently seen while undergoing hemodialysis. Vital signs are stable. Off Levophed. General: The patient appeared well nourished and normally developed. HEENT: Head exam is unremarkable. Neck is without jugular venous distension. Intubated. LUNGS: Breath sounds decreased. HEART: Rate and Rhythm are regular. First and second heart sounds normal. No murmurs, rubs or gallops. ABDOMEN: Abdominal exam reveals normal bowel sounds. Non-tender and non- distended. No evidence of peritonitis. EXTREMITITES: 2+ edema. Chronic skin changes noted. Objective - Vital Signs Vital signs: Vital Signs Temp 97.8 F 09/18/18 08:01 Pulse 92 09/18/18 11:26 Resp 30 H 09/18/18 11:00 BP 119/65 09/16/18 14:03 Pulse Ox 97 09/18/18 11:00 Intake & Output 09/17/18 09/18/18 09/18/18 18:59 06:59 18:59 Intake Total 1548.983 1166 585.424 Output Total 1391 1285 470 Balance -86.290 -73 115.424 Weight 157.1 kg 157.1 kg Intake: IV 352 312 130 Piperacillin-Tazobactam 3 50 .375 gm In Dextrose/Water 1 50ml.bag @ 12.5 mls/hr IVPB Q8H [facility] Rx#: [id number] Pressure bag 72 72 30 Sodium Chloride 0.9% 1, 230 240 100 000 ml @ 20 mls/hr IV . Q24H [facility] Rx#:[id number] Intake, IV Titration 694.710 600 359.424 Amount Furosemide 250 mg In 250 Sodium Chloride 0.9% 225 ml @ 15 MG/HR 15 mls/hr IVP .[id number] [facility] Rx#: [id number] Heparin Sod,Pork in 0.45% 500.000 500 NaCl 25,000 unit In 0.45 % NaCl 1 500ml.bag @ 14.9 UNITS/KG/HR 45.95 mls/hr IV .[id number] [facility] Rx#: [id number] Propofol 1,000 mg In 194.710 100 109.424 Empty Bag 1 bag @ Titrate IV .Q0M [facility] Rx#: [id number] Tube Feeding 258 240 96 Other 60 Output: Urine 1390 1285 470 Stool 1 Other: Voiding Method Indwelling Catheter Indwelling Catheter Indwelling Catheter # Bowel Movements 1 ABP, PAP, CO, CI - Last Documented Arterial Blood Pressure 160/81 - Labs CBC & Chem 7: 09/18/18 05:00 09/18/18 05:00 Labs: Abnormal Lab Results - Last 24 Hours (Table) 09/17/18 09/17/18 09/18/18 Range/Units 18:17 23:58 05:00 WBC 25.9 H (3.8-10.6) k/uL RBC 3.02 L (4.30-5.90) m/uL Hgb 9.4 L D (13.0-17.5) gm/dL Hct 27.9 L (39.0-53.0) % RDW 16.3 H (11.5-15.5) % Plt Count 458 H (150-450) k/uL Neutrophils # (Manual) 19.60 H (1.3-7.7) k/uL Monocytes # (Manual) 1.04 H (0-1.0) k/uL Eosinophils # (Manual) 0.78 H (0-0.7) k/uL Metamyelocytes # (Man) 3.11 H (0) k/uL Myelocytes # (Manual) 0.52 H (0) k/uL Nucleated RBCs 1 H (0-0) /100 WBC APTT (22.0-30.0) sec ABG pH (7.35-7.45) ABG pCO2 (35-45) mmHg ABG pO2 (83-108) mmHg ABG O2 Saturation (94-97) % BUN (9-20) mg/dL Creatinine (0.66-1.25) mg/dL Glucose (74-99) mg/dL POC Glucose (mg/dL) 125 H 124 H (75-99) mg/dL Phosphorus (2.5-4.5) mg/dL Magnesium (1.6-2.3) mg/dL 09/18/18 09/18/18 09/18/18 Range/Units 05:00 05:00 05:13 WBC (3.8-10.6) k/uL RBC (4.30-5.90) m/uL Hgb (13.0-17.5) gm/dL Hct (39.0-53.0) % RDW (11.5-15.5) % Plt Count (150-450) k/uL Neutrophils # (Manual) (1.3-7.7) k/uL Monocytes # (Manual) (0-1.0) k/uL Eosinophils # (Manual) (0-0.7) k/uL Metamyelocytes # (Man) (0) k/uL Myelocytes # (Manual) (0) k/uL Nucleated RBCs (0-0) /100 WBC APTT 56.4 H (22.0-30.0) sec ABG pH 7.29 L (7.35-7.45) ABG pCO2 47 H (35-45) mmHg ABG pO2 113 H (83-108) mmHg ABG O2 Saturation 97.1 H (94-97) % BUN 80 H (9-20) mg/dL Creatinine 4.79 H (0.66-1.25) mg/dL Glucose 110 H (74-99) mg/dL POC Glucose (mg/dL) (75-99) mg/dL Phosphorus 9.7 H* (2.5-4.5) mg/dL Magnesium 2.9 H (1.6-2.3) mg/dL 09/18/18 09/18/18 Range/Units 06:01 11:55 WBC (3.8-10.6) k/uL RBC (4.30-5.90) m/uL Hgb (13.0-17.5) gm/dL Hct (39.0-53.0) % RDW (11.5-15.5) % Plt Count (150-450) k/uL Neutrophils # (Manual) (1.3-7.7) k/uL Monocytes # (Manual) (0-1.0) k/uL Eosinophils # (Manual) (0-0.7) k/uL Metamyelocytes # (Man) (0) k/uL Myelocytes # (Manual) (0) k/uL Nucleated RBCs (0-0) /100 WBC APTT (22.0-30.0) sec ABG pH (7.35-7.45) ABG pCO2 (35-45) mmHg ABG pO2 (83-108) mmHg ABG O2 Saturation (94-97) % BUN (9-20) mg/dL Creatinine (0.66-1.25) mg/dL Glucose (74-99) mg/dL POC Glucose (mg/dL) 114 H 100 H (75-99) mg/dL Phosphorus (2.5-4.5) mg/dL Magnesium (1.6-2.3) mg/dL Microbiology - Last 24 Hours (Table) 09/12/18 01:35 Blood Culture - Final Blood No Growth after 144 hours Assessment and Plan Plan: Assessment: 1. Acute kidney injury secondary to ATN secondary to hypotension and hemodynamic instability. Baseline creatinine is 1 and elevated at 4.77 09/17. No evidence of hydronephrosis noted on renal ultrasound. 2. Bilateral pulmonary embolism status post TPA maintained on IV heparin. 3. Right lower extremity DVT. 4. Hypotension now off Levophed. Cortisol level normal. 5. Acute hypoxic respiratory failure secondary to PE. 6. Hyperphosphatemia secondary to acute kidney injury. 7. SVT now in sinus rhythm. Cardiology following. 8. Volume overload. 9. Acute blood loss anemia with hemoglobin of 5.9 10/24 s/p pRBCs. Better. 10. Metabolic acidosis secondary to ACOSTA. Improved post-HD. Plan: Maintain bumex drip. Maintain phoslo 3 times daily. Maintain tube feeds. Avoid nephrotoxins. Continue to monitor renal function and urine output. Currently sitting while undergoing hemodialysis. Next treatment tomorrow. Will try for 3-4 L ultrafiltration.
--- NOTE | 2018-09-18 12:22 | CONS ---
DATE OF CONSULTATION: 09/18/2018 This is a 52-year-old gentleman with history of chronic renal failure, history of DVT and PE in the past. Patient came in with shortness of breath, has been intubated. I was consulted for placement of the dialysis catheter. MEDICAL HISTORY: History of DVT, PE, obesity. PHYSICAL EXAMINATION: On examination, patient was seen in the intensive care unit. The patient has been intubated. Neck is supple. Chest has crackles bilateral. Abdomen is protuberant. Femoral pulses are present. Patient has marked swelling of both lower extremities, which is chronic in nature. PLAN: Placement of the dialysis catheter. Risks and complications discussed. MMODL / IJN: [id number] / OVIDIO
[2018-09-18] MEDS: MULTIVITAMINS, THERA 1 EACH TAB PO SCH (12:55)
--- NOTE | 2018-09-18 15:31 | P.PN ---
Subjective Progress Note Date: 09/18/18 On 09/14/2018, I am seeing this patient for a follow-up in the intensive care unit. The patient was in following a massive but the pulmonary embolism, right ventricular enlargement and right ventricular strain pattern with subsequent hemodynamic collapse and cardiac arrest. The patient is post TPA infusion at time of the code. The patient is currently on IV heparin. In terms of his breathing, the patient is intubated on a mechanical ventilator. The patient is currently on an assist-control mode at the rate of 32 with a tidal volume of 500 and FiO2 of 50% with a PEEP of 10. The chest x-ray from today shows adequate positioning of 82. There is some atelectatic changes and infiltration of the right lung base. Meanwhile, the blood gases from today showed a pH of 7.32 with a pCO2 of 48 and pO2 of 116 and this was done on the above-mentioned ventilator settings. No significant orotracheal secretions. Breath other are equal and bilateral. Airway pressures are not elevated. Hemodynamically, the patient is on pressors at 3 mics of norepinephrine infusion for blood pressure support. He has been aggressively resuscitated IV fluids and a noted significant amount of weight gain over the past several days. The patient was given a dose of Lasix yesterday. In addition the patient was having episodes of SVTs throughout his current hospitalization and he was treated with adenosine and currently is on amiodarone orally 5 mg by mouth twice a day and his cardiac rhythm is normalized and his in sinus rhythm. Echocardiogram, the patient has an ejection fraction of 6065%. The rhythm to Doxil septal motion abnormality consistent with right ventricular volume/strain pattern. Of interest also is development of acute kidney injury. The patient came in initially with a normal renal function. Subsequently creatinine came up to 1.7 and currently is up to 2.41. He was given a dose of Lasix yesterday and none since yesterday. The patient is nonoliguric. The net fluid balance over the past 24 hours is +825 mL. He is having loose liquidy bowel movement. He is currently on vital 1.2 at the rate of 35 mL an hour. He is sedated with Diprivan. Lower oximetry is a swallow with extensive swelling of the right lower extremity which also has a DVT. The patient is having on and off low- grade fever and the patient is currently on IV Ancef. Most recent hemoglobin is at 8.0. White cell count is not elevated at 7.1. He remains on IV heparin regarding the massive bilateral pulmonary embolism. On 09/15/2018 I'm seeing this patient in follow-up in the intensive care unit. This morning the patient remains sedated on Diprivan, comfortable. A sedation holiday was given to this patient yesterday now was told that he was able to follow commands and his mentation seems to be intact despite his cardiac arrest. The patient remains sedated for this morning. Intubated on a mechanical ventilator. He is an assist-control mode of ventilation at the rate of 32 with a tidal volume of 500 and an FiO2 of 50% and PEEP of 7. Morning blood gases showed a pH of 7.35 with a pCO2 of 41 and pO2 of 124. Chest x-ray shows smaller lung volumes. There is evidence of better pleural effusion and pulmonary vessel congestion. ET tube is in a good location. No significant orotracheal secretions. The patient has been significant volume overload since admission to the hospital. I checked his fluid balance since admission and the patient has been is significant amount of positive fluid balance due to fluid resuscitation. Echo of the heart showed a preserved LV function yet the patient had a component of RV strain/overload related to his recent pulmonary embolism. I don't think this patient's chronic pulmonary hypertension. I do not think the patient has obesity hypoventilation syndrome knowing that his serum bicarb was low and within normal limits at a time of admission. In any rate, there is a component of fluid overload and the patient would benefit from diuresis. I did not diuresis patient yesterday based on the fact that the creatinine was on the rise. I'm awaiting follow-up creatinine levels from today and nephrology has also been consult on the case. He is afebrile for today. No leukocytosis. Hemoglobin stable at 7.5. Is tolerating his tube feeds. Massive edema lower extremity is bilaterally more so on the right. Cardiac rhythm remains sinus. No other significant events overnight. Antibiotic as an broadened and IV Ancef was discontinued yesterday and patient is currently on IV Zosyn. On 09/16/2018, I'm seeing this patient for a follow-up. The patient remains sedated on Diprivan. The patient admits intubated on a mechanical ventilator. On today's evaluation, the patient is on a 50 mics of Diprivan for sedation. He is receiving enteral feeding for nutritional support. He has demonstrated drop in hemoglobin down to 5.9 yet, there is no evidence of any exogenous bleeding. There is no evidence of any melanotic stool or any bloody output from the orotracheal tube or the NG tube. A total of 2 units of packed RBC was ordered. The patient was kept on IV heparin and PTT is therapeutic at 50. Also , the patient is still on a mechanical ventilator. Vent settings today include an assist-control mode at the rate of 26, FiO2 of 50%, PEEP of 7 and tidal volume of 500. The blood gases from today showed a pH of 7.29 with a pCO2 of 45 and pO2 of 107. Obviously the patient has a component of mild acidosis which is related to respiratory factors and metabolic factors as the patient's serum bicarb drip down to 18. The chest x-ray shows evidence of bilateral consolidation pleural effusion. There is evidence of pulmonary edema that is rather diffuse. ET tube and NG tube are both in a good location and the patient has a left-sided PICC line noted. Note that the patient was started on diuretics yesterday based on the fact that he was getting into significant positive fluid balance of fluid overload. Currently the patient on Lasix drip at 10 mg an hour. Urine output is improved, however the patient is still producing a low urine output around 30 mL an hour and the net fluid balance is positive and has been consistent positive over the past 1 week. He demonstrated signs of fluid overload the massive edema both in the upper and lower extremities more so in the right lower extremity. His renal function is impaired. The patient suffered an acute kidney injury. This is felt to be related to an ATN post cardiac arrest and possibly some contribution from contrast administration. The creatinine is up to 3.8 with a BUN of 57. The rest of the I's show a mild component of non-anion gap metabolic acidosis. He is afebrile. Is covered empirically with IV Zosyn for any possible aspiration pneumonia. No other significant events overnight. He is taken off pressors for now. On 09/17/2018, I'm seeing this patient for a follow-up. Unfortunately not much of the progress has been done on this patient's case since yesterday. In fact the patient's renal function is progressively getting worse and the patient is getting progressively more edematous and swollen especially in the lower extremities. In fact there is considerable amount of edema in the skin is weeping at this point in time. The patient is sedated on a mechanical ventilator. The patient remains on the same vent setting. I was able to cut down the PEEP down to 5 with an FiO2 of 40% at the rate of 26 and a tidal volume of 500. Chest x-ray is not showing any significant changes and the patient has by the pulmonary infiltrates most on the lower lobes and this could be related to fluid overload/pneumonia. At gases from today showed a pH of 7.28 with a pCO2 of 42 and pO2 of 103. The patient is developing a component of non-anion gap metabolic acidosis along with progressive worsening the renal function. A patient's serum bicarb is down to 16 and the creatinine is up to 4.7. The patient is tolerating his tube feeds. Minimal amount of bloody suctioning material from the orotracheal tube. He received a total of 2 units of packed RBCs yesterday. His hemoglobin today is up to 7.6. He remains on IV heparin with PTT being therapeutic at 48. The patient has normal platelet counts. He remains afebrile. He is on utilizing any pressors. I had a discussion with the research associate policy and we are the progress of recommending dialysis for this patient. He will likely need a temporary dialysis catheter insertion today and dialysis for significant fluid overload the setting of an acute kidney injury. On 09/18/2018, I'm seeing this patient for a follow-up. The patient this morning is intubated on mechanical ventilator. He is essentially on the same vent setting. I switched him to a VC plus mode to make him more success with the mechanical ventilator. He is at the rate of 26 with a tidal volume of 500 and FiO2 of 40% and a PEEP of 5. His inspiratory time is set at 0.9 seconds. Also, the patient was taken off sedation. He has been off sedation for the past 4-5 hours. He is opening up his eyes. He is not following any commands. He is still somnolent and encephalopathic at this point in time and there has been no meaningful clinical response or any following of any commands at this point in time. He is started on hemodialysis. The Vas-Cath was inserted in his right groin/femoral vein and the patient received the first session of dialysis yesterday without a total of 2 L of fluid was removed. He started on another session of dialysis today and the goal is to ultrafiltrate him with a total of 3 L. He is still quite edematous in the upper and lower extremities. Chest x-ray still showing lower lobe infiltrates probably combination of pneumonia/volume overload. The blood gases from today showed a pH of 7.29 with a pCO2 of 47 and pO2 113. His white cell count is at 25.9 yet the patient is afebrile and the patient is covered with IV Zosyn. He is on a Lasix drip at 50 mg an hour. The patient was producing urine output in the order of 70 mL an hour. In effort to restrict his IV fluids aspiration. Bumex drip at the rate of 0.5 mg an hour. He is also on IV heparin with a therapeutic PTT. Family at the bedside. I then elected discussion with his sister and updated on his condition. Receiving enteral feeding for nutritional support. He is on Nepro. He did have 2 loose bowel movements yesterday. Objective - Vital Signs Vital signs: Vital Signs Temp 98.3 F 09/18/18 12:00 Pulse 87 09/18/18 15:00 Resp 26 H 09/18/18 15:00 BP 119/65 09/16/18 14:03 Pulse Ox 99 09/18/18 15:00 Intake & Output 09/17/18 09/18/18 09/18/18 18:59 06:59 18:59 Intake Total 2522.551 9915 1185.424 Output Total 1391 1285 671 Balance -86.290 -73 514.424 Weight 157.1 kg 157.1 kg Intake: IV 352 312 182 Piperacillin-Tazobactam 3 50 .375 gm In Dextrose/Water 1 50ml.bag @ 12.5 mls/hr IVPB Q8H [facility] Rx#: [id number] Pressure bag 72 72 42 Sodium Chloride 0.9% 1, 230 240 140 000 ml @ 20 mls/hr IV . Q24H [facility] Rx#:[id number] Intake, IV Titration 694.710 600 859.424 Amount Furosemide 250 mg In 250 Sodium Chloride 0.9% 225 ml @ 15 MG/HR 15 mls/hr IVP .[id number] [facility] Rx#: [id number] Heparin Sod,Pork in 0.45% 500.000 500 500 NaCl 25,000 unit In 0.45 % NaCl 1 500ml.bag @ 14.9 UNITS/KG/HR 45.95 mls/hr IV .[id number] [facility] Rx#: [id number] Propofol 1,000 mg In 194.710 100 109.424 Empty Bag 1 bag @ Titrate IV .Q0M [facility] Rx#: [id number] Tube Feeding 258 240 144 Other 60 Output: Urine 1390 1285 670 Stool 1 1 Other: Voiding Method Indwelling Catheter Indwelling Catheter Indwelling Catheter # Bowel Movements 1 ABP, PAP, CO, CI - Last Documented Arterial Blood Pressure 141/77 - Exam No acute distress, sedated, orally placed endotracheal tube and NG tube. No or minimal blood noted in the NG tube and certainly no bleeding from the mouth at this time. This morning, the patient is suggested the mechanical ventilator. No agitation. No restlessness. The patient is currently off sedation. He will be kept off sedation for now. He is not following commands. He opens his eyes. He does not track or follow or bloody purposeful movement at this point in time. HEENT examination is grossly unremarkable. Mucous membranes are moist. Neck supple. Full range of motion. No adenopathy thyromegaly or neck vein distention. The patient has a triple-lumen catheter in his neck left IJ area. Cardiovascular examination reveals regular rhythm rate. S1-S2 normal. No S3 or S4. No discernible murmur noted. Cardiac exam revealed the PMI to be normally situated and sized. The rhythm was regular and no extrasystoles were noted during several minutes of auscultation. The first and second heart sounds were normal and physiologic splitting of the second heart sound was noted. There were no murmurs, rubs, clicks, or gallops. Lungs reveal coarse bilateral breath sounds. Crackles are noted bilaterally in our bit worse today. Diffuse rhonchi are appreciated. No wheezes. Breath sounds are diminished throughout. Breath sounds are equal bilaterally. Abdomen is obese. Bowel sounds are noted. No masses appreciated.Abdominal exam revealed normal bowel sounds. The abdomen was soft, non-tender, and without masses, organomegaly, or appreciable enlargement of the abdominal aorta. Extremities. There is some chronic venous stasis changes. There is significant amount of weeping from the skin surface.. Some mild livedo reticularis. Note that the right lower extremity is more swollen compared to the left. This is 2 pitting edema in the right lower extremity. Skin is reveal some chronic venous stasis changes. The patient has improvement in lower extremity edema compared to yesterday. No open wounds or sores at this point in time. Neurologic examination shows equal and symmetrical pupils. No nystagmus. No facial asymmetry. He withdraws to stimulation. No purposeful movements. Positive cough. Positive gag. - Labs CBC & Chem 7: 09/18/18 05:00 09/18/18 05:00 Labs: Abnormal Lab Results - Last 24 Hours (Table) 09/17/18 09/17/18 09/18/18 Range/Units 18:17 23:58 05:00 WBC 25.9 H (3.8-10.6) k/uL RBC 3.02 L (4.30-5.90) m/uL Hgb 9.4 L D (13.0-17.5) gm/dL Hct 27.9 L (39.0-53.0) % RDW 16.3 H (11.5-15.5) % Plt Count 458 H (150-450) k/uL Neutrophils # (Manual) 19.60 H (1.3-7.7) k/uL Monocytes # (Manual) 1.04 H (0-1.0) k/uL Eosinophils # (Manual) 0.78 H (0-0.7) k/uL Metamyelocytes # (Man) 3.11 H (0) k/uL Myelocytes # (Manual) 0.52 H (0) k/uL Nucleated RBCs 1 H (0-0) /100 WBC APTT (22.0-30.0) sec ABG pH (7.35-7.45) ABG pCO2 (35-45) mmHg ABG pO2 (83-108) mmHg ABG O2 Saturation (94-97) % BUN (9-20) mg/dL Creatinine (0.66-1.25) mg/dL Glucose (74-99) mg/dL POC Glucose (mg/dL) 125 H 124 H (75-99) mg/dL Phosphorus (2.5-4.5) mg/dL Magnesium (1.6-2.3) mg/dL 09/18/18 09/18/18 09/18/18 Range/Units 05:00 05:00 05:13 WBC (3.8-10.6) k/uL RBC (4.30-5.90) m/uL Hgb (13.0-17.5) gm/dL Hct (39.0-53.0) % RDW (11.5-15.5) % Plt Count (150-450) k/uL Neutrophils # (Manual) (1.3-7.7) k/uL Monocytes # (Manual) (0-1.0) k/uL Eosinophils # (Manual) (0-0.7) k/uL Metamyelocytes # (Man) (0) k/uL Myelocytes # (Manual) (0) k/uL Nucleated RBCs (0-0) /100 WBC APTT 56.4 H (22.0-30.0) sec ABG pH 7.29 L (7.35-7.45) ABG pCO2 47 H (35-45) mmHg ABG pO2 113 H (83-108) mmHg ABG O2 Saturation 97.1 H (94-97) % BUN 80 H (9-20) mg/dL Creatinine 4.79 H (0.66-1.25) mg/dL Glucose 110 H (74-99) mg/dL POC Glucose (mg/dL) (75-99) mg/dL Phosphorus 9.7 H* (2.5-4.5) mg/dL Magnesium 2.9 H (1.6-2.3) mg/dL 09/18/18 09/18/18 Range/Units 06:01 11:55 WBC (3.8-10.6) k/uL RBC (4.30-5.90) m/uL Hgb (13.0-17.5) gm/dL Hct (39.0-53.0) % RDW (11.5-15.5) % Plt Count (150-450) k/uL Neutrophils # (Manual) (1.3-7.7) k/uL Monocytes # (Manual) (0-1.0) k/uL Eosinophils # (Manual) (0-0.7) k/uL Metamyelocytes # (Man) (0) k/uL Myelocytes # (Manual) (0) k/uL Nucleated RBCs (0-0) /100 WBC APTT (22.0-30.0) sec ABG pH (7.35-7.45) ABG pCO2 (35-45) mmHg ABG pO2 (83-108) mmHg ABG O2 Saturation (94-97) % BUN (9-20) mg/dL Creatinine (0.66-1.25) mg/dL Glucose (74-99) mg/dL POC Glucose (mg/dL) 114 H 100 H (75-99) mg/dL Phosphorus (2.5-4.5) mg/dL Magnesium (1.6-2.3) mg/dL Microbiology - Last 24 Hours (Table) 09/12/18 01:35 Blood Culture - Final Blood No Growth after 144 hours Assessment and Plan Plan: Assessment 1 acute hypoxic respiratory failure secondary to massive bilateral pulmonary embolism, status post cardiac pulmonary arrest, status post TPA treatment, currently on IV heparin. The patient remains intubated on a mechanical ventilator. The subsequent follow-up chest x-ray shows evidence of interstitial edema and bilateral pleural effusion and possibly a component of bilateral pneumonia. The patient is currently on IV Zosyn. The patient is also in acute renal failure with significant amount of massive fluid overload. Based on all this, the patient was started on hemodialysis yesterday and overall his 5 L of ultrafiltration since yesterday. 2 L were removed yesterday and 3 L were removed today without any major difficulties. He is actually taking well. He does have a component of respiratory acidosis on his blood gas today. Chest x-ray is unchanged. He is on VC plus mode and he is synchronous with the mechanical ventilator. Note that the patient was given a sedation holiday today. He did not demonstrate the adequate neurologic recovery and responsiveness and weakness and alertness while off Diprivan. Based on that I decide to keep him off the Diprivan. I did the necessary vent changes to keep him secretions with the mechanical ventilator. This may be a drug-induced encephalopathy knowing that the patient has been intubated on sedation for extended period of time.. We'll continue monitoring his mentation on a regular basis here in the ICU. 2 acute respiratory failure secondary to above, currently intubated on a mechanical ventilator, secondary to above 3 massive pulmonary embolism with right ventricular strain and dilatation with subsequent cardiac arrest, without clear evidence of any anoxic or hypoxic encephalopathy. She remains on IV heparin. No evidence of an acute bleeding at this point in time and hemoglobin is stable at 9.4 4 acute cardio-pulmonary arrest secondary to massive PE, post TPA administration 5 acute hypotension,, this has recovered and the patient is currently off pressors 6 acute kidney injury with signs of massive fluid overload and the patient is currently on hemodialysis. The first session was given to him yesterday and second session of renal replacement therapy and ultrafiltration was done today. 7 acute DVT of the right lower extremity 8 morbid obesity with a BMI of 46.5 9 history of smoking 10 history of anxiety 11 acute on top of chronic anemia with a drop in hemoglobin down to 5. without evidence of any external or exogenous bleeding, the patient got transfused with a total of 2 units of packed RBC and hemoglobin is up to 7.6 12 bilateral lower lobe pneumonia suspected, possibly of an aspiration type, on the recent chest x-ray shows bilateral lower lobe consolidation. 13 episodes of SVT, currently in sinus rhythm 14 morbid obesity with a BMI of 46.8 Plan We'll keep the patient off sedation. We'll monitor the mentation. We will assess him for any signs of neurologic recovery while off sedation. If not, we' ll consider repeating the CAT scan of the brain. Meanwhile, we'll continue the renal replacement therapy and ultrafiltration to optimize his volume status. I did the necessity ventilator changes. He is on IV heparin and this will be kept. He is on IV Zosyn and this will be kept. His Lasix drip was switched to Bumex drip at 0.5 mg/h. The first on the case. We'll continue to follow make further recommendations based on his overall progress. This critically care evaluation that was done and 40 minutes. Time with Patient: Greater than 30
[2018-09-18 17:52] LABS: Hepatitis B Surface AB- Quant 3.5 mIU/mL
[2018-09-18 18:53] LABS: Hemoglobin A1C 5.9 % (4.0-6.0)
[2018-09-18 18:59] LABS: Glucose,Whole Blood 116 mg/dL (75-99)
[2018-09-18] MEDS: SODIUM CHLORIDE 0.9% 1,000 ML IV SCH (20:48)
[2018-09-18] MEDS ORDERED: hydrALAZINE HCL 20 MG/ML 1 ML VIAL IVP PRN (21:19)
--- NOTE | 2018-09-18 22:25 | P.PN ---
Subjective Progress Note Date: 09/17/18 Principal diagnosis: Massive pulmonary embolism Acute cardiopulmonary arrest status post CPR and intubation Patient is a 52-year-old male with a known history of chronic bilateral lower extremity lymphedema and history of pulmonary embolism about a year ago, currently not taking Coumadin for the past 6-8 months came to ER with complaints of acute worsening shortness of breath since yesterday. Patient says that he has been having shortness of breath for the last couple of weeks but suddenly got worse yesterday. Patient was told that his DVT and pulmonary embolus was secondary to sedentary lifestyle and sleeping in a sitting position. Patient states he took his Coumadin for about 6 months. He was so several follow-up appointment in November for repeat evaluation however he did not follow-up with that appointment. He stopped his Coumadin in November. Denies any constitutional symptoms. Patient feels much more short of breath with exertion. Chest pain. He feels as though both of his legs are much more edematous than usual suspicion is right lower extremity. Lower extremity duplex scan showed acute DVT right popliteal vein through the proximal calf veins CTA chest showed massive bilateral pulmonary embolism with right ventricular enlargement suggestive of right ventricular strain correlate clinically. A 7 mm and 4 mm right lower lobe pulmonary nodule not seen previous exam subpleural in location could be inflammatory. WBC 14.1 Troponin 0.258 Potassium 5.3 On 09/09/2018 Patient had a brief episode of cardiopulmonary arrest this morning and developed respiratory distress. Subsequently patient was intubated and was transferred to MICU. Patient had a difficult intubation. Patient was given TPA by ER physician. Patient also received multiple doses of epinephrine and sodium bicarbonate. Patient is currently on Levophed drip. Being continued on heparin drip as well. Patient is currently sedated. Initial ABG showed pH 7.0, pCO2 80, pO2 118 Patient was seen by cardiology and pulmonary. 09/10/2018 Patient is currently mechanically ventilated and sedated. Patient is being continued on heparin drip. Continues to be on Levothroid drip. Patient had SVT during cardiopulmonary arrest. Patient was started on amiodarone.. Otherwise hemoglobin dropped to 10.7 today. Continues to have bloody secretions which is being suctioned. Chest x-ray showed bilateral pleural effusion and consolidation. AST 559 and ALT 509 albumin 2.6. Cultures negative so far. Creatinine 1.76. 09/11/2018 52-year-old gentleman with a history of massive bilateral pulmonary embolism right ventricular enlargement and right heart strain. He did receive systemic TPA and was on IV heparin until yesterday which time was turned off because of ongoing bleeding. The patient's overall prognosis remains very guarded. The patient remains on ventilator. Arterial blood gases show a PaO2 of 113 PaCO2 38 and a pH of 7.4. The patient is on saline at 75 mL an hour; Heparin was discontinued yesterday because of ongoing bleeding from the cavity and NG tube. In addition, he's had about a 1 g hemoglobin drop on a daily basis. This morning's hemoglobin is 9.9. 09/12/2018; The patient's overall prognosis remains very guarded. The patient was given a daily interruption of sedation today but could not have a spontaneous breathing trial because he became very tachypnea with respiratory rates above 40. Currently, he is on the volume assist control mode rate of 32, tidal volume 500 , FiO2 35% to be increased to 40% and 5 of PEEP. Arterial blood gases showed a PaO2 of 59 a PaCO2 of 43 and a pH 7.37. That was on 35% FiO2. In addition, the patient's on norepinephrine at 7 mics per minute, propofol at 65 mcg/kg/m, saline IV at 75 mL an hour, heparin via weightbase protocol and vital 1.2 at goal. Chest x-ray shows bilateral effusions with basilar atelectasis and/or infiltrates. On 09/15/2018 Patient currently on mechanical ventilation with assist control and sedation. Patient is being continued on IV heparin. Hemoglobin is 7.5. Renal function slightly worsened with increasing creatinine level 3.56. No active bleeding noted. Chest x-ray showed bilateral pleural effusion and pulmonary vascular congestion. Patient was given a dose of Lasix previously. Patient is currently on antibiotics in the form of Zosyn. 09/16/2018 Patient was seen and examined in the MICU. Currently maintained on mechanical ventilator. Hemoglobin dropped to 5.9 today. 2 units of PRBC was ordered. No signs of active bleeding noted. Patient is being continued on IV heparin. Chest x-ray showed evidence of bilateral consolidation and pleural effusion. Correlate for pulmonary edema and diffuse pneumonia. Currently on Lasix drip. Creatinine level increased to 3.89 today. Otherwise patient is getting empiric antibiotics for possible pneumonia aspiration likely. Patient is being followed by pulmonary cardiology and nephrology. 09/17/2018 Patient is currently on mechanical ventilator. Chest x-ray showed possible fluid overload/pneumonia. Creatinine is trending up at 4.7 today. Hemoglobin is 7.6. Continued on IV heparin. held for permacath placement. Nephrology is planning for hemodialysis. No fever no chills. Current medications reviewed. Active Medications Albuterol/Ipratropium (Duoneb 0.5 Mg-3 Mg/3 Ml Soln) 3 ml INHALATION RT-Q2H PRN PRN Reason: Shortness Of Breath Or Wheezing Albuterol/Ipratropium (Duoneb 0.5 Mg-3 Mg/3 Ml Soln) 3 ml INHALATION RT-Q4H [facility] Last Admin: 09/16/18 20:44 Dose: 3 ml Amiodarone HCl (Cordarone) 400 mg PO BID [facility] Last Admin: 09/16/18 21:49 Dose: 400 mg Chlorhexidine Gluconate (Peridex) 15 ml MUCOUS MEM BID [facility] Last Admin: 09/16/18 21:49 Dose: 15 ml Heparin Sodium (Porcine) (Heparin) 0 unit IV PER PROTOCOL PRN; Protocol PRN Reason: Low PTT Last Admin: 09/09/18 04:34 Dose: 4,000 unit Hydromorphone HCl (Dilaudid) 1 mg IVP Q1HR PRN PRN Reason: Mild to Moderate Pain Last Admin: 09/11/18 20:34 Dose: 1 mg Hydromorphone HCl (Dilaudid) 2 mg IVP Q1HR PRN PRN Reason: Moderate to Severe Pain Heparin Sodium/Sodium Chloride (25,000 unit/ Sodium Chloride) 500 mls @ 45.95 mls/hr IV .[id number] [facility]; Protocol Last Admin: 09/16/18 09:45 Dose: 18 units/kg/hr, 55.51 mls/hr Propofol 1,000 mg/ IV Solution 100 mls @ 0 mls/hr IV .Q0M [facility]; Protocol Last Admin: 09/16/18 21:49 Dose: 44.99 mcg/kg/min, 45.1 mls/hr Norepinephrine Bitartrate 16 (mg/ Sodium Chloride) 250 mls @ 0 mls/hr IV .Q0M [facility]; Protocol Last Titration: 09/15/18 14:40 Dose: 0 mcg/min, 0 mls/hr Sodium Chloride (Saline 0.9%) 1,000 mls @ 20 mls/hr IV .Q24H [facility] Last Admin: 09/15/18 14:21 Dose: 20 mls/hr Acetaminophen 1,000 mg/ IV (Solution) 100 mls @ 400 mls/hr IVPB ONCE PRN PRN Reason: Fever>101 Last Admin: 09/13/18 21:55 Dose: 400 mls/hr Piperacillin/Tazobactam/ (Dextrose 3.375 gm/ IV Solution) 50 mls @ 12.5 mls/hr IVPB Q8H [facility] Last Admin: 09/16/18 18:21 Dose: 12.5 mls/hr Furosemide 250 mg/ Sodium (Chloride) 250 mls @ 15 mls/hr IVP .[id number] [facility] Last Infusion: 09/16/18 11:15 Dose: 15 mg/hr, 15 mls/hr Insulin Aspart (Novolog) 0 unit SQ Q6HR [facility]; Protocol Last Admin: 09/16/18 18:10 Dose: Not Given Miscellaneous Information (Potassium Per Protocol) 1 each MISCELLANE DAILY PRN ; Protocol PRN Reason: Per Protocol Miscellaneous Information (Magnesium Per Protocol) 1 each MISCELLANE DAILY PRN ; Protocol PRN Reason: Per Protocol Multivitamins (Theragran) 1 each PO DAILY@1200 [facility] Last Admin: 09/16/18 13:17 Dose: 1 each Naloxone HCl (Narcan) 0.2 mg IV Q2M PRN PRN Reason: Opioid Reversal Pantoprazole Sodium (Protonix) 40 mg IVP DAILY [facility] Last Admin: 09/16/18 08:57 Dose: 40 mg Sevelamer Carbonate (Renvela) 800 mg PO TID-W/MEALS [facility] Last Admin: 09/16/18 18:21 Dose: 800 mg Objective - Vital Signs Vital signs: Vital Signs Temp 98.1 F 09/17/18 16:00 Pulse 80 09/17/18 16:07 Resp 29 H 09/17/18 16:00 BP 119/65 09/16/18 14:03 Pulse Ox 95 09/17/18 16:00 Intake & Output 09/16/18 09/17/18 09/17/18 18:59 06:59 18:59 Intake Total 3032.981 8073.199 3655.417 Output Total 115 397 9353 Balance 2232.981 776.814 -139.583 Weight 167.1 kg 168.9 kg Intake: IV 423.1 386.0 300 Furosemide 250 mg In 10 Sodium Chloride 0.9% 225 ml @ 15 MG/HR 15 mls/hr IVP .[id number] [facility] Rx#: [id number] Piperacillin-Tazobactam 3 75.1 100.0 50 .375 gm In Dextrose/Water 1 50ml.bag @ 12.5 mls/hr IVPB Q8H [facility] Rx#: [id number] Pressure bag 78 66 60 Sodium Chloride 0.9% 1, 260 220 190 000 ml @ 20 mls/hr IV . Q24H [facility] Rx#:[id number] Intake, IV Titration 8726.681 7180.814 541.417 Amount Furosemide 250 mg In 54.5 187.5 Sodium Chloride 0.9% 225 ml @ 15 MG/HR 15 mls/hr IVP .[id number] [facility] Rx#: [id number] Heparin Sod,Pork in 0.45% 958.883 437.604 401.522 NaCl 25,000 unit In 0.45 % NaCl 1 500ml.bag @ 14.9 UNITS/KG/HR 45.95 mls/hr IV .[id number] [facility] Rx#: [id number] Propofol 1,000 mg In 496.498 394.71 139.895 Empty Bag 1 bag @ Titrate IV .Q0M [facility] Rx#: [id number] Tube Feeding 390 156 210 Blood Product 620 Rc As-1 Unit 310 [id number] Rc Irr As1 Unit 310 [id number] Other 90 60 Output: Urine 951 958 4366 Stool 1 Other: Voiding Method Indwelling Catheter Indwelling Catheter Indwelling Catheter ABP, PAP, CO, CI - Last Documented Arterial Blood Pressure 123/63 - Exam PHYSICAL EXAMINATION: Patient is lying in the bed comfortably, currently sedated and intubated HEENT: Normocephalic. Neck is supple. Pupils reactive. Nostrils clear. Oral cavity is moist. Ears reveal no drainage. Neck reveals no JVD, carotid bruits, or thyromegaly. CHEST EXAMINATION: Trachea is central. Symmetrical expansion. Bibasilar diminished air entry and crackles present. CARDIAC: Normal S1, S2 with no gallops. No murmurs ABDOMEN: Soft. Bowel sounds normal. No organomegaly. No abdominal bruits. Extremities: Bilateral lower extremity lymphedema with 3+ edema. No clubbing or cyanosis Neurologically . Currently sedated and intubated. Skin: No rash or skin lesions except above. Psychiatric: Could not be assessed at this time. - Labs CBC & Chem 7: 09/18/18 05:00 09/18/18 05:00 Labs: Abnormal Lab Results - Last 24 Hours (Table) 09/16/18 09/16/18 09/16/18 Range/Units 16:17 18:07 23:39 WBC 19.9 H (3.8-10.6) k/uL RBC 2.84 L (4.30-5.90) m/uL Hgb 8.9 L D (13.0-17.5) gm/dL Hct 26.9 L (39.0-53.0) % RDW (11.5-15.5) % Neutrophils # (Manual) (1.3-7.7) k/uL Myelocytes # (Manual) (0) k/uL APTT (22.0-30.0) sec ABG pH (7.35-7.45) ABG HCO3 (21-25) mmol/L ABG O2 Saturation (94-97) % Carbon Dioxide (22-30) mmol/L BUN (9-20) mg/dL Creatinine (0.66-1.25) mg/dL Glucose (74-99) mg/dL POC Glucose (mg/dL) 129 H 131 H (75-99) mg/dL Calcium (8.4-10.2) mg/dL Phosphorus (2.5-4.5) mg/dL Magnesium (1.6-2.3) mg/dL 09/17/18 09/17/18 09/17/18 Range/Units 04:05 04:05 04:56 WBC 18.8 H (3.8-10.6) k/uL RBC 2.38 L (4.30-5.90) m/uL Hgb 7.6 L (13.0-17.5) gm/dL Hct 22.4 L (39.0-53.0) % RDW 15.9 H (11.5-15.5) % Neutrophils # (Manual) 13.70 H (1.3-7.7) k/uL Myelocytes # (Manual) 2.44 H (0) k/uL APTT (22.0-30.0) sec ABG pH 7.28 L (7.35-7.45) ABG HCO3 19 L (21-25) mmol/L ABG O2 Saturation 97.9 H (94-97) % Carbon Dioxide 16 L (22-30) mmol/L BUN 74 H (9-20) mg/dL Creatinine 4.77 H (0.66-1.25) mg/dL Glucose 111 H (74-99) mg/dL POC Glucose (mg/dL) (75-99) mg/dL Calcium 8.1 L (8.4-10.2) mg/dL Phosphorus 9.2 H* (2.5-4.5) mg/dL Magnesium 2.6 H (1.6-2.3) mg/dL 09/17/18 09/17/18 09/17/18 Range/Units 05:42 05:45 11:55 WBC (3.8-10.6) k/uL RBC (4.30-5.90) m/uL Hgb (13.0-17.5) gm/dL Hct (39.0-53.0) % RDW (11.5-15.5) % Neutrophils # (Manual) (1.3-7.7) k/uL Myelocytes # (Manual) (0) k/uL APTT 48.8 H (22.0-30.0) sec ABG pH (7.35-7.45) ABG HCO3 (21-25) mmol/L ABG O2 Saturation (94-97) % Carbon Dioxide (22-30) mmol/L BUN (9-20) mg/dL Creatinine (0.66-1.25) mg/dL Glucose (74-99) mg/dL POC Glucose (mg/dL) 127 H 139 H (75-99) mg/dL Calcium (8.4-10.2) mg/dL Phosphorus (2.5-4.5) mg/dL Magnesium (1.6-2.3) mg/dL Microbiology - Last 24 Hours (Table) 09/12/18 01:35 Blood Culture - Preliminary Blood No Growth after 120 hours Assessment and Plan Assessment: Acute cardiopulmonary arrest likely due to pulmonary embolism. Status post CPR and spontaneous return of circulation Acute hypercapnic respiratory failure. Currently on mechanical ventilator Massive pulmonary embolism with right ventricular strain. Patient was given TPA during CPR Acute hypotension currently on pressor support. 2-D echocardiogram showed normal LV function Pulmonary edema Possible right lower lobe pneumonia Nonoliguric acute kidney injury with worsening creatinine level Acute on chronic anemia. Possible acute blood loss anemia Elevated troponin level secondary to right ventricular strain Acute lower extremity DVT Family history of pulmonary embolism in his brother Mild hyperkalemia 5.3 Recent history of pulmonary embolism about a year ago. Stopped taking Coumadin since November 2017 Previous history of smoking Bilateral lower extremity chronic lymphedema Morbid obesity with BMI 43.7 Seborrheic dermatitis history Anxiety Plan: Patient will be continued on IV heparin and monitor closely in the MICU. Patient was given TPA. Continue with pressor support. Cardiology and pulmonary is following. Continue with mechanical ventilation. Monitor H&H. 2 units of PRBC transfusion was done on 09/16/2018. Monitor renal function and also monitor for any GI bleed. Discussed with his family at bedside in detail. Prognosis is poor. Further recommendations based on the clinical course. Time with Patient: Greater than 30
[2018-09-18 23:55] LABS: Glucose,Whole Blood 111 mg/dL (75-99)
[2018-09-19] MEDS: PIPERACILLIN-TAZOBACTAM 3.375 GM in DEXTROSE/WATER 1 50ML.BAG IVPB SCH ×3 (01:54→18:09)
[2018-09-19] MEDS: IPRATROPIUM-ALBUTEROL 3 ML NEB INHALATION SCH ×6 (02:45→23:14)
[2018-09-19 05:18] LABS: Anisocytosis Slight; HCT 28.8 % (39.0-53.0); HGB 9.3 gm/dL (13.0-17.5); MCH 29.7 pg (25.0-35.0); MCHC 32.3 g/dL (31.0-37.0); MCV 92.1 fL (80.0-100.0); Mean Platelet Volume 7.1; Platelet Count 481 k/uL (150-450); RBC 3.13 m/uL (4.30-5.90); RDW 16.4 % (11.5-15.5); WBC 29.8 k/uL (3.8-10.6)
[2018-09-19 05:21] LABS: ABG HCO3 24 mmol/L (21-25); ABG PCO2 44 mmHg (35-45); ABG PH 7.34 (7.35-7.45); ABG PO2 95 mmHg (83-108); ABG TCO2 25 mmol/L (19-24)
[2018-09-19 05:59] LABS: Glucose,Whole Blood 110 mg/dL (75-99)
[2018-09-19] MEDS: INSULIN ASPART 100 UNIT/ML 1 ML 10 ML VIAL SQ SCH ×3 (06:00→18:09)
[2018-09-19 06:01] LABS: Band Neutrophils % 12 %; Lymphocytes # (M) 1.49 k/uL (1.0-4.8); Monocytes # (M) 1.19 k/uL (0-1.0); Myelocytes # (M) 0.89 k/uL (0); Myelocytes % 3 %; Neutrophils % (M) 76 %; Nucleated Red Blood Cells 0 /100 WBC (0-0); Total Cells Counted 200
[2018-09-19 06:16] LABS: Calcium 9.9 mg/dL (8.4-10.2); Magnesium 2.9 mg/dL (1.6-2.3); Phosphorus 7.9 mg/dL (2.5-4.5); Potassium 3.3 mmol/L (3.5-5.1)
--- NOTE | 2018-09-19 06:54 | XR ---
EXAMINATION TYPE: XR chest 1V portable DATE OF EXAM: 09/19/2018 HISTORY: PE follow up. REFERENCE: Previous study dated 09/18/2018. FINDINGS: The patient's ET tube and NG tube remain in place, unchanged in appearance. The heart is enlarged. There is left basilar airspace disease and some degree of right basilar airspa ce disease. There is mild vascular congestion without noman edema. There are small, bilateral effusio ns. IMPRESSION: 1. CARDIOMEGALY. 2. BIBASILAR AIRSPACE DISEASE. 3. SMALL, BILATERAL EFFUSIONS.
[2018-09-19] MEDS: HEPARIN SOD,PORK IN 0.45% NACL 25,000 UNIT in 0.45% NACL 1 500ML.BAG IV SCH ×2 (08:01→18:09)
[2018-09-19] MEDS: AMIODARONE 200 MG TAB PO SCH ×2 (08:35→21:16)
[2018-09-19] MEDS: POTASSIUM BICARBONATE/CIT AC 20 MEQ TABLET.EFF NG-TUBE SCH ×2 (08:36→11:35)
[2018-09-19] MEDS: CHLORHEXIDINE GLUCONATE 15 ML CUP MUCOUS MEM SCH ×2 (08:36→21:16)
[2018-09-19] MEDS: PANTOPRAZOLE 40 MG/10 ML VIAL IVP SCH (08:36)
[2018-09-19] MEDS: CALCIUM ACETATE 667 MG CAP PO SCH ×3 (08:36→18:09)
--- NOTE | 2018-09-19 10:59 | P.PN ---
Subjective Progress Note Date: 09/19/18 (Nephrology) Principal diagnosis: Acute kidney injury Seen and examined for the follow-up of acute kidney injury. Still on a ventilator. Had dialysis yesterday. Urine output 2 L in the last 24 hours. Don't know if that also includes ultrafiltration. Objective - Vital Signs Vital signs: Vital Signs Temp 97.7 F 09/19/18 08:00 Pulse 87 09/19/18 10:00 Resp 25 H 09/19/18 10:00 BP 119/65 09/16/18 14:03 Pulse Ox 99 09/19/18 10:00 Intake & Output 09/18/18 09/19/18 09/19/18 18:59 06:59 18:59 Intake Total 1435.424 958 864 Output Total 1151 900 390 Balance 284.424 58 474 Weight 157.1 kg 157.4 kg Intake: IV 312 362 154 Piperacillin-Tazobactam 3 50 50 .375 gm In Dextrose/Water 1 50ml.bag @ 12.5 mls/hr IVPB Q8H [facility] Rx#: [id number] Pressure bag 72 72 24 Sodium Chloride 0.9% 1, 240 240 80 000 ml @ 20 mls/hr IV . Q24H [facility] Rx#:[id number] Intake, IV Titration 859.424 500 524 Amount Bumetanide 12 mg In 24 Dextrose 5% in Water 192 ml @ 0.5 MG/HR 10 mls/hr IV .Q24H [facility] Rx#: [id number] Furosemide 250 mg In 250 Sodium Chloride 0.9% 225 ml @ 15 MG/HR 15 mls/hr IVP .[id number] [facility] Rx#: [id number] Heparin Sod,Pork in 0.45% 500 500 500 NaCl 25,000 unit In 0.45 % NaCl 1 500ml.bag @ 14.9 UNITS/KG/HR 45.95 mls/hr IV .[id number] [facility] Rx#: [id number] Propofol 1,000 mg In 109.424 Empty Bag 1 bag @ Titrate IV .Q0M [facility] Rx#: [id number] Tube Feeding 264 96 96 Other 90 Output: Urine 1150 900 390 Stool 1 Other: Voiding Method Indwelling Catheter Indwelling Catheter ABP, PAP, CO, CI - Last Documented Arterial Blood Pressure 137/74 - Exam Intubated on a ventilator S1-S2 heard Clear anteriorly Gonsales dark urine Edema Right groin Kings catheter - Labs CBC & Chem 7: 09/19/18 05:00 09/19/18 05:00 Labs: Abnormal Lab Results - Last 24 Hours (Table) 09/18/18 09/18/18 09/18/18 Range/Units 05:13 11:55 18:58 WBC (3.8-10.6) k/uL RBC (4.30-5.90) m/uL Hgb (13.0-17.5) gm/dL Hct (39.0-53.0) % RDW (11.5-15.5) % Plt Count (150-450) k/uL Neutrophils # (Manual) (1.3-7.7) k/uL Monocytes # (Manual) (0-1.0) k/uL Myelocytes # (Manual) (0) k/uL APTT (22.0-30.0) sec ABG pH 7.29 L (7.35-7.45) ABG pCO2 47 H (35-45) mmHg ABG pO2 113 H (83-108) mmHg ABG Total CO2 (19-24) mmol/L ABG O2 Saturation 97.1 H (94-97) % Potassium (3.5-5.1) mmol/L BUN (9-20) mg/dL Creatinine (0.66-1.25) mg/dL Glucose (74-99) mg/dL POC Glucose (mg/dL) 100 H 116 H (75-99) mg/dL Phosphorus (2.5-4.5) mg/dL Magnesium (1.6-2.3) mg/dL 09/18/18 09/19/18 09/19/18 Range/Units 23:53 05:00 05:00 WBC 29.8 H (3.8-10.6) k/uL RBC 3.13 L (4.30-5.90) m/uL Hgb 9.3 L (13.0-17.5) gm/dL Hct 28.8 L (39.0-53.0) % RDW 16.4 H (11.5-15.5) % Plt Count 481 H (150-450) k/uL Neutrophils # (Manual) 26.20 H (1.3-7.7) k/uL Monocytes # (Manual) 1.19 H (0-1.0) k/uL Myelocytes # (Manual) 0.89 H (0) k/uL APTT (22.0-30.0) sec ABG pH (7.35-7.45) ABG pCO2 (35-45) mmHg ABG pO2 (83-108) mmHg ABG Total CO2 (19-24) mmol/L ABG O2 Saturation (94-97) % Potassium 3.3 L (3.5-5.1) mmol/L BUN 84 H (9-20) mg/dL Creatinine 4.56 H (0.66-1.25) mg/dL Glucose 109 H (74-99) mg/dL POC Glucose (mg/dL) 111 H (75-99) mg/dL Phosphorus 7.9 H (2.5-4.5) mg/dL Magnesium 2.9 H (1.6-2.3) mg/dL 09/19/18 09/19/18 09/19/18 Range/Units 05:00 05:20 05:58 WBC (3.8-10.6) k/uL RBC (4.30-5.90) m/uL Hgb (13.0-17.5) gm/dL Hct (39.0-53.0) % RDW (11.5-15.5) % Plt Count (150-450) k/uL Neutrophils # (Manual) (1.3-7.7) k/uL Monocytes # (Manual) (0-1.0) k/uL Myelocytes # (Manual) (0) k/uL APTT 67.1 H (22.0-30.0) sec ABG pH 7.34 L (7.35-7.45) ABG pCO2 (35-45) mmHg ABG pO2 (83-108) mmHg ABG Total CO2 25 H (19-24) mmol/L ABG O2 Saturation (94-97) % Potassium (3.5-5.1) mmol/L BUN (9-20) mg/dL Creatinine (0.66-1.25) mg/dL Glucose (74-99) mg/dL POC Glucose (mg/dL) 110 H (75-99) mg/dL Phosphorus (2.5-4.5) mg/dL Magnesium (1.6-2.3) mg/dL Assessment and Plan Assessment: #1 acute kidney injury secondary to hemodynamic ATN. Baseline creatinine around 1.0 MG per DL #2 vent-dependent respiratory failure #3 bilateral pulmonary embolism status post TPA #4 hemodynamic shock resolved currently off vasopressors. #5 hyperphosphatemia secondary to acute kidney injury #6 volume overload #7 metabolic acidosis Plan: #1 hemodialysis again today for volume. Plan again on Friday. #2 continue with Bumex drip for now. #3 avoid nephrotoxic agents and hypotensive episodes. #4 replace electrolytes. #5 if systolic blood pressure more than 150 after dialysis, add scheduled antihypertensive medications.
--- NOTE | 2018-09-19 11:23 | PN ---
PROGRESS NOTE Mr. Rowley is a 52-year-old male who presented with pulmonary embolus and respiratory failure. He remains intubated. He is scheduled to undergo dialysis today. He is grimacing with painful stimulation. He is not following commands. Hemodynamically he is stable. He is on no pressors. He continues to be on IV heparin. He continues to be at this time on amiodarone 400 mg twice a day. PHYSICAL EXAMINATION: Blood pressure 137/70 with a heart rate in the 80s. LUNGS: Clear to auscultation. HEART: Regular rate and rhythm. S1, S2. No S3. No rub. ABDOMEN: Soft, obese. No organomegaly. EXTREMITIES: Plus edema with chronic skin changes. LAB DATA: BUN and creatinine of 84 and 4.56. Hemoglobin 9.3. PTT of 67.1. IMPRESSION: 1. Respiratory failure, post massive pulmonary embolism. 2. Evidence of right-sided dilatation and strain. 3. Acute kidney failure. 4. Morbid obesity. RECOMMENDATIONS: From the cardiac standpoint, will continue on the present therapy. Continue clinical observation. Probably proceed with dialysis today. Hopefully he can be extubated in the next 24 to 48 hours and subsequently switched to oral anticoagulation. MMODL / IJN: [id number] /
[2018-09-19] MEDS: MULTIVITAMINS, THERA 1 EACH TAB PO SCH (11:35)
[2018-09-19] MEDS: BUMETANIDE 12 MG in DEXTROSE 5% IN WATER 192 ML IV SCH ×2 (11:42)
[2018-09-19 12:23] LABS: Glucose,Whole Blood 106 mg/dL (75-99)
--- NOTE | 2018-09-19 14:02 | P.PN ---
Subjective Progress Note Date: 09/19/18 On 09/14/2018, I am seeing this patient for a follow-up in the intensive care unit. The patient was in following a massive but the pulmonary embolism, right ventricular enlargement and right ventricular strain pattern with subsequent hemodynamic collapse and cardiac arrest. The patient is post TPA infusion at time of the code. The patient is currently on IV heparin. In terms of his breathing, the patient is intubated on a mechanical ventilator. The patient is currently on an assist-control mode at the rate of 32 with a tidal volume of 500 and FiO2 of 50% with a PEEP of 10. The chest x-ray from today shows adequate positioning of 82. There is some atelectatic changes and infiltration of the right lung base. Meanwhile, the blood gases from today showed a pH of 7.32 with a pCO2 of 48 and pO2 of 116 and this was done on the above-mentioned ventilator settings. No significant orotracheal secretions. Breath other are equal and bilateral. Airway pressures are not elevated. Hemodynamically, the patient is on pressors at 3 mics of norepinephrine infusion for blood pressure support. He has been aggressively resuscitated IV fluids and a noted significant amount of weight gain over the past several days. The patient was given a dose of Lasix yesterday. In addition the patient was having episodes of SVTs throughout his current hospitalization and he was treated with adenosine and currently is on amiodarone orally 5 mg by mouth twice a day and his cardiac rhythm is normalized and his in sinus rhythm. Echocardiogram, the patient has an ejection fraction of 6065%. The rhythm to Doxil septal motion abnormality consistent with right ventricular volume/strain pattern. Of interest also is development of acute kidney injury. The patient came in initially with a normal renal function. Subsequently creatinine came up to 1.7 and currently is up to 2.41. He was given a dose of Lasix yesterday and none since yesterday. The patient is nonoliguric. The net fluid balance over the past 24 hours is +825 mL. He is having loose liquidy bowel movement. He is currently on vital 1.2 at the rate of 35 mL an hour. He is sedated with Diprivan. Lower oximetry is a swallow with extensive swelling of the right lower extremity which also has a DVT. The patient is having on and off low- grade fever and the patient is currently on IV Ancef. Most recent hemoglobin is at 8.0. White cell count is not elevated at 7.1. He remains on IV heparin regarding the massive bilateral pulmonary embolism. On 09/15/2018 I'm seeing this patient in follow-up in the intensive care unit. This morning the patient remains sedated on Diprivan, comfortable. A sedation holiday was given to this patient yesterday now was told that he was able to follow commands and his mentation seems to be intact despite his cardiac arrest. The patient remains sedated for this morning. Intubated on a mechanical ventilator. He is an assist-control mode of ventilation at the rate of 32 with a tidal volume of 500 and an FiO2 of 50% and PEEP of 7. Morning blood gases showed a pH of 7.35 with a pCO2 of 41 and pO2 of 124. Chest x-ray shows smaller lung volumes. There is evidence of better pleural effusion and pulmonary vessel congestion. ET tube is in a good location. No significant orotracheal secretions. The patient has been significant volume overload since admission to the hospital. I checked his fluid balance since admission and the patient has been is significant amount of positive fluid balance due to fluid resuscitation. Echo of the heart showed a preserved LV function yet the patient had a component of RV strain/overload related to his recent pulmonary embolism. I don't think this patient's chronic pulmonary hypertension. I do not think the patient has obesity hypoventilation syndrome knowing that his serum bicarb was low and within normal limits at a time of admission. In any rate, there is a component of fluid overload and the patient would benefit from diuresis. I did not diuresis patient yesterday based on the fact that the creatinine was on the rise. I'm awaiting follow-up creatinine levels from today and nephrology has also been consult on the case. He is afebrile for today. No leukocytosis. Hemoglobin stable at 7.5. Is tolerating his tube feeds. Massive edema lower extremity is bilaterally more so on the right. Cardiac rhythm remains sinus. No other significant events overnight. Antibiotic as an broadened and IV Ancef was discontinued yesterday and patient is currently on IV Zosyn. On 09/16/2018, I'm seeing this patient for a follow-up. The patient remains sedated on Diprivan. The patient admits intubated on a mechanical ventilator. On today's evaluation, the patient is on a 50 mics of Diprivan for sedation. He is receiving enteral feeding for nutritional support. He has demonstrated drop in hemoglobin down to 5.9 yet, there is no evidence of any exogenous bleeding. There is no evidence of any melanotic stool or any bloody output from the orotracheal tube or the NG tube. A total of 2 units of packed RBC was ordered. The patient was kept on IV heparin and PTT is therapeutic at 50. Also , the patient is still on a mechanical ventilator. Vent settings today include an assist-control mode at the rate of 26, FiO2 of 50%, PEEP of 7 and tidal volume of 500. The blood gases from today showed a pH of 7.29 with a pCO2 of 45 and pO2 of 107. Obviously the patient has a component of mild acidosis which is related to respiratory factors and metabolic factors as the patient's serum bicarb drip down to 18. The chest x-ray shows evidence of bilateral consolidation pleural effusion. There is evidence of pulmonary edema that is rather diffuse. ET tube and NG tube are both in a good location and the patient has a left-sided PICC line noted. Note that the patient was started on diuretics yesterday based on the fact that he was getting into significant positive fluid balance of fluid overload. Currently the patient on Lasix drip at 10 mg an hour. Urine output is improved, however the patient is still producing a low urine output around 30 mL an hour and the net fluid balance is positive and has been consistent positive over the past 1 week. He demonstrated signs of fluid overload the massive edema both in the upper and lower extremities more so in the right lower extremity. His renal function is impaired. The patient suffered an acute kidney injury. This is felt to be related to an ATN post cardiac arrest and possibly some contribution from contrast administration. The creatinine is up to 3.8 with a BUN of 57. The rest of the I's show a mild component of non-anion gap metabolic acidosis. He is afebrile. Is covered empirically with IV Zosyn for any possible aspiration pneumonia. No other significant events overnight. He is taken off pressors for now. On 09/17/2018, I'm seeing this patient for a follow-up. Unfortunately not much of the progress has been done on this patient's case since yesterday. In fact the patient's renal function is progressively getting worse and the patient is getting progressively more edematous and swollen especially in the lower extremities. In fact there is considerable amount of edema in the skin is weeping at this point in time. The patient is sedated on a mechanical ventilator. The patient remains on the same vent setting. I was able to cut down the PEEP down to 5 with an FiO2 of 40% at the rate of 26 and a tidal volume of 500. Chest x-ray is not showing any significant changes and the patient has by the pulmonary infiltrates most on the lower lobes and this could be related to fluid overload/pneumonia. At gases from today showed a pH of 7.28 with a pCO2 of 42 and pO2 of 103. The patient is developing a component of non-anion gap metabolic acidosis along with progressive worsening the renal function. A patient's serum bicarb is down to 16 and the creatinine is up to 4.7. The patient is tolerating his tube feeds. Minimal amount of bloody suctioning material from the orotracheal tube. He received a total of 2 units of packed RBCs yesterday. His hemoglobin today is up to 7.6. He remains on IV heparin with PTT being therapeutic at 48. The patient has normal platelet counts. He remains afebrile. He is on utilizing any pressors. I had a discussion with the strategic debriefing specialist and we are the progress of recommending dialysis for this patient. He will likely need a temporary dialysis catheter insertion today and dialysis for significant fluid overload the setting of an acute kidney injury. On 09/18/2018, I'm seeing this patient for a follow-up. The patient this morning is intubated on mechanical ventilator. He is essentially on the same vent setting. I switched him to a VC plus mode to make him more success with the mechanical ventilator. He is at the rate of 26 with a tidal volume of 500 and FiO2 of 40% and a PEEP of 5. His inspiratory time is set at 0.9 seconds. Also, the patient was taken off sedation. He has been off sedation for the past 4-5 hours. He is opening up his eyes. He is not following any commands. He is still somnolent and encephalopathic at this point in time and there has been no meaningful clinical response or any following of any commands at this point in time. He is started on hemodialysis. The Vas-Cath was inserted in his right groin/femoral vein and the patient received the first session of dialysis yesterday without a total of 2 L of fluid was removed. He started on another session of dialysis today and the goal is to ultrafiltrate him with a total of 3 L. He is still quite edematous in the upper and lower extremities. Chest x-ray still showing lower lobe infiltrates probably combination of pneumonia/volume overload. The blood gases from today showed a pH of 7.29 with a pCO2 of 47 and pO2 113. His white cell count is at 25.9 yet the patient is afebrile and the patient is covered with IV Zosyn. He is on a Lasix drip at 50 mg an hour. The patient was producing urine output in the order of 70 mL an hour. In effort to restrict his IV fluids aspiration. Bumex drip at the rate of 0.5 mg an hour. He is also on IV heparin with a therapeutic PTT. Family at the bedside. I then elected discussion with his sister and updated on his condition. Receiving enteral feeding for nutritional support. He is on Nepro. He did have 2 loose bowel movements yesterday. On 09/19/2018, the patient is being seen for a follow-up. We are the process of performing daily dialysis on this patient. On today's evaluation is still off sedation. He is very slow to arouse. I noted that his grimacing to painful stimulation and on one instance he follow the command when he was able to squeeze my finger. Nevertheless he is not following commands on a regular basis. He remains quite encephalopathic. This could be still a drug effect or also related to metabolic factors. In any rate, the patient remains on a mechanical ventilator at the same vent setting which is a VC plus mode at the rate of 26, tidal volume of 500, FiO2 of 40% and a PEEP of 5. The chest x-ray from today shows some improvement in the elevation and infiltration of the lung bases bilaterally. The blood gas showed a pH of 7.34 with a pCO2 of 44 and pO2 of 95 and FiO2 of 40%. He is on no pressors. I noted the white count gradually is going up. The patient on IV Zosyn. Cultures of been all negative. The patient has a temper dialysis catheter in his right groin. Lower extremity edema is improved compared to yesterday. Remains on a Bumex drip at 0.5 mg an hour. Plan is to perform another dialysis today. We are monitoring the electrolytes. No weaning trial. Special that the patient's mental status is not fully recovered. We'll keep the patient off sedation. Objective - Vital Signs Vital signs: Vital Signs Temp 98.4 F 09/19/18 12:00 Pulse 91 09/19/18 13:00 Resp 26 H 09/19/18 13:00 BP 119/65 09/16/18 14:03 Pulse Ox 99 09/19/18 13:00 Intake & Output 09/18/18 09/19/18 09/19/18 18:59 06:59 18:59 Intake Total 1435.252 561 2065 Output Total 1151 900 740 Balance 284.424 58 576 Weight 157.1 kg 157.4 kg Intake: IV 312 362 232 Piperacillin-Tazobactam 3 50 50 .375 gm In Dextrose/Water 1 50ml.bag @ 12.5 mls/hr IVPB Q8H [facility] Rx#: [id number] Pressure bag 72 72 42 Sodium Chloride 0.9% 1, 240 240 140 000 ml @ 20 mls/hr IV . Q24H [facility] Rx#:[id number] Intake, IV Titration 859.424 500 772 Amount Bumetanide 12 mg In 272 Dextrose 5% in Water 192 ml @ 0.5 MG/HR 10 mls/hr IV .Q24H [facility] Rx#: [id number] Furosemide 250 mg In 250 Sodium Chloride 0.9% 225 ml @ 15 MG/HR 15 mls/hr IVP .[id number] [facility] Rx#: [id number] Heparin Sod,Pork in 0.45% 500 500 500 NaCl 25,000 unit In 0.45 % NaCl 1 500ml.bag @ 14.9 UNITS/KG/HR 45.95 mls/hr IV .[id number] [facility] Rx#: [id number] Propofol 1,000 mg In 109.424 Empty Bag 1 bag @ Titrate IV .Q0M [facility] Rx#: [id number] Tube Feeding 264 96 192 Other 120 Output: Urine 1150 900 740 Stool 1 Other: Voiding Method Indwelling Catheter Indwelling Catheter Indwelling Catheter ABP, PAP, CO, CI - Last Documented Arterial Blood Pressure 160/77 - Exam No acute distress, sedated, orally placed endotracheal tube and NG tube. No or minimal blood noted in the NG tube and certainly no bleeding from the mouth at this time. This morning, the patient is suggested the mechanical ventilator. No agitation. No restlessness. The patient is currently off sedation. He will be kept off sedation for now. He is not following commands. He opens his eyes. He does not track or follow or bloody purposeful movement at this point in time. HEENT examination is grossly unremarkable. Mucous membranes are moist. Neck supple. Full range of motion. No adenopathy thyromegaly or neck vein distention. The patient has a triple-lumen catheter in his neck left IJ area. Cardiovascular examination reveals regular rhythm rate. S1-S2 normal. No S3 or S4. No discernible murmur noted. Cardiac exam revealed the PMI to be normally situated and sized. The rhythm was regular and no extrasystoles were noted during several minutes of auscultation. The first and second heart sounds were normal and physiologic splitting of the second heart sound was noted. There were no murmurs, rubs, clicks, or gallops. Lungs reveal coarse bilateral breath sounds. Crackles are noted bilaterally in our bit worse today. Diffuse rhonchi are appreciated. No wheezes. Breath sounds are diminished throughout. Breath sounds are equal bilaterally. Abdomen is obese. Bowel sounds are noted. No masses appreciated.Abdominal exam revealed normal bowel sounds. The abdomen was soft, non-tender, and without masses, organomegaly, or appreciable enlargement of the abdominal aorta. Extremities. There is some chronic venous stasis changes. There is significant amount of weeping from the skin surface.. Some mild livedo reticularis. Note that the right lower extremity is more swollen compared to the left. This is 2 pitting edema in the right lower extremity. Skin is reveal some chronic venous stasis changes. The patient has improvement in lower extremity edema compared to yesterday. No open wounds or sores at this point in time. Neurologic examination shows equal and symmetrical pupils. No nystagmus. No facial asymmetry. He withdraws to stimulation. No purposeful movements. Positive cough. Positive gag. The patient is currently off sedation. He grimaces to painful stimulation. - Labs CBC & Chem 7: 09/19/18 05:00 09/19/18 05:00 Labs: Abnormal Lab Results - Last 24 Hours (Table) 09/18/18 09/18/18 09/19/18 Range/Units 18:58 23:53 05:00 WBC 29.8 H (3.8-10.6) k/uL RBC 3.13 L (4.30-5.90) m/uL Hgb 9.3 L (13.0-17.5) gm/dL Hct 28.8 L (39.0-53.0) % RDW 16.4 H (11.5-15.5) % Plt Count 481 H (150-450) k/uL Neutrophils # (Manual) 26.20 H (1.3-7.7) k/uL Monocytes # (Manual) 1.19 H (0-1.0) k/uL Myelocytes # (Manual) 0.89 H (0) k/uL APTT (22.0-30.0) sec ABG pH (7.35-7.45) ABG Total CO2 (19-24) mmol/L Potassium (3.5-5.1) mmol/L BUN (9-20) mg/dL Creatinine (0.66-1.25) mg/dL Glucose (74-99) mg/dL POC Glucose (mg/dL) 116 H 111 H (75-99) mg/dL Phosphorus (2.5-4.5) mg/dL Magnesium (1.6-2.3) mg/dL 09/19/18 09/19/18 09/19/18 Range/Units 05:00 05:00 05:20 WBC (3.8-10.6) k/uL RBC (4.30-5.90) m/uL Hgb (13.0-17.5) gm/dL Hct (39.0-53.0) % RDW (11.5-15.5) % Plt Count (150-450) k/uL Neutrophils # (Manual) (1.3-7.7) k/uL Monocytes # (Manual) (0-1.0) k/uL Myelocytes # (Manual) (0) k/uL APTT 67.1 H (22.0-30.0) sec ABG pH 7.34 L (7.35-7.45) ABG Total CO2 25 H (19-24) mmol/L Potassium 3.3 L (3.5-5.1) mmol/L BUN 84 H (9-20) mg/dL Creatinine 4.56 H (0.66-1.25) mg/dL Glucose 109 H (74-99) mg/dL POC Glucose (mg/dL) (75-99) mg/dL Phosphorus 7.9 H (2.5-4.5) mg/dL Magnesium 2.9 H (1.6-2.3) mg/dL 09/19/18 09/19/18 Range/Units 05:58 12:20 WBC (3.8-10.6) k/uL RBC (4.30-5.90) m/uL Hgb (13.0-17.5) gm/dL Hct (39.0-53.0) % RDW (11.5-15.5) % Plt Count (150-450) k/uL Neutrophils # (Manual) (1.3-7.7) k/uL Monocytes # (Manual) (0-1.0) k/uL Myelocytes # (Manual) (0) k/uL APTT (22.0-30.0) sec ABG pH (7.35-7.45) ABG Total CO2 (19-24) mmol/L Potassium (3.5-5.1) mmol/L BUN (9-20) mg/dL Creatinine (0.66-1.25) mg/dL Glucose (74-99) mg/dL POC Glucose (mg/dL) 110 H 106 H (75-99) mg/dL Phosphorus (2.5-4.5) mg/dL Magnesium (1.6-2.3) mg/dL Assessment and Plan Plan: Assessment 1 acute hypoxic respiratory failure secondary to massive bilateral pulmonary embolism, status post cardiac pulmonary arrest, status post TPA treatment, currently on IV heparin. The patient remains intubated on a mechanical ventilator. The subsequent follow-up chest x-ray shows evidence of interstitial edema and bilateral pleural effusion and possibly a component of bilateral pneumonia. The patient is currently on IV Zosyn. The patient is also in acute renal failure with significant amount of massive fluid overload. Based on all this, the patient was started on hemodialysis . Since the patient has been on dialysis, the patient was taken off sedation. The patient is opening up his eyes and his grimacing. Does not follow any specific commands yet. Bottom status gradually continues to improve. Occupation is also improved and the patient is currently on 40% FiO2 with a PEEP of 5. 2 acute respiratory failure secondary to above, currently intubated on a mechanical ventilator, secondary to above 3 massive pulmonary embolism with right ventricular strain and dilatation with subsequent cardiac arrest, without clear evidence of any anoxic or hypoxic encephalopathy. She remains on IV heparin. No evidence of an acute bleeding at this point in time and hemoglobin is stable at 9.3 4 acute cardio-pulmonary arrest secondary to massive PE, post TPA administration 5 encephalopathy. Rule out metabolic encephalopathy. Rule out hypoxic encephalopathy. The patient is being dialyzed on a daily basis. He is currently off sedation. He is opening his eyes and his grimacing. He is not consistently following commands. 6 acute kidney injury with signs of massive fluid overload and the patient is undergoing daily dialysis 7 acute DVT of the right lower extremity 8 morbid obesity with a BMI of 46.5 9 history of smoking 10 history of anxiety 11 chronic normocytic anemia, multifactorial 12 bilateral lower lobe pneumonia suspected, possibly of an aspiration type, on the recent chest x-ray shows bilateral lower lobe consolidation. 13 episodes of SVT, currently in sinus rhythm 14 morbid obesity with a BMI of 46.8 Plan Dialysis today with ultrafiltration. The goal is 3 L removal. Continue Bumex drip. Monitor the white count. Monitor fever pattern. Continue IV Zosyn as an empiric antibiotic coverage. Continue monitoring the mental status and keep the patient off sedation completely. Repeated neurochecks. No weaning trials as far as the patient is not having any significant neurologic recovery at this point in time. There may be an underlying hypoxic/metabolic encephalopathy. Continue vent support. Doppler respiratory rate down to 20. Daily chest x- rays. Daily electrolytes. Monitor and replace electrolytes as needed. The thoughts on the case. We'll continue to follow. Keep the patient IV heparin for now. Watch for any signs of bleeding. Monitor hemoglobin. Condition is critical. May ultimately required tracheostomy tube if does not show adequate recovery with the next 48 hours. Critically care evaluation, more than 30 minutes. Time with Patient: Greater than 30
[2018-09-19 17:30] LABS: Glucose,Whole Blood 112 mg/dL (75-99)
[2018-09-19] MEDS: SODIUM CHLORIDE 0.9% 1,000 ML IV SCH (21:28)
[2018-09-19 23:47] LABS: Glucose,Whole Blood 102 mg/dL (75-99)
[2018-09-20] MEDS: INSULIN ASPART 100 UNIT/ML 1 ML 10 ML VIAL SQ SCH ×5 (01:25→23:35)
[2018-09-20] MEDS: PIPERACILLIN-TAZOBACTAM 3.375 GM in DEXTROSE/WATER 1 50ML.BAG IVPB SCH ×4 (01:26→18:01)
[2018-09-20] MEDS: IPRATROPIUM-ALBUTEROL 3 ML NEB INHALATION SCH ×6 (03:03→23:21)
[2018-09-20] MEDS: HEPARIN SOD,PORK IN 0.45% NACL 25,000 UNIT in 0.45% NACL 1 500ML.BAG IV SCH ×2 (03:25→11:50)
[2018-09-20 04:37] LABS: Anisocytosis Slight; HCT 28.8 % (39.0-53.0); HGB 9.5 gm/dL (13.0-17.5); MCH 30.6 pg (25.0-35.0); MCHC 33.1 g/dL (31.0-37.0); MCV 92.7 fL (80.0-100.0); Mean Platelet Volume 7.5; Platelet Count 389 k/uL (150-450); RBC 3.11 m/uL (4.30-5.90); RDW 16.5 % (11.5-15.5); WBC 23.7 k/uL (3.8-10.6)
[2018-09-20 05:16] LABS: ABG Base Excess 0.4 mmol/L; ABG HCO3 25 mmol/L (21-25); ABG Oxygen Saturation 96.9 % (94-97); ABG PCO2 42 mmHg (35-45); ABG PH 7.39 (7.35-7.45); ABG PO2 94 mmHg (83-108); ABG TCO2 27 mmol/L (19-24)
[2018-09-20 05:17] LABS: Magnesium 2.8 mg/dL (1.6-2.3); Phosphorus 6.7 mg/dL (2.5-4.5); Potassium 3.3 mmol/L (3.5-5.1)
[2018-09-20 05:26] LABS: Lymphocytes # (M) 2.13 k/uL (1.0-4.8); Monocytes # (M) 1.19 k/uL (0-1.0); Neutrophils # (M) 20.38 k/uL (1.3-7.7); Neutrophils % (M) 86 %; Nucleated Red Blood Cells 0 /100 WBC (0-0); Total Cells Counted 100
[2018-09-20] MEDS: HYDROmorphone 1 MG/ML 1 ML SYRINGE IVP PRN ×4 (05:35→21:18)
[2018-09-20] MEDS: POTASSIUM BICARBONATE/CIT AC 20 MEQ TABLET.EFF NG-TUBE SCH ×2 (06:21→08:25)
[2018-09-20 06:25] LABS: Glucose,Whole Blood 120 mg/dL (75-99)
--- NOTE | 2018-09-20 06:47 | XR ---
EXAMINATION TYPE: XR chest 1V portable DATE OF EXAM: 09/20/2018 HISTORY: intubated. REFERENCE: Previous study dated 09/19/2018. FINDINGS: The patient is ET tube and NG tube remain in place, unchanged in appearance. A left subclav zhanna catheter remains in place. Its tip is in the right atrium. There is bibasilar airspace disease. The heart is mildly prominent. There are small, bilateral effusi ons. There has been no significant interval change in the appearance of the chest. IMPRESSION: NO SIGNIFICANT INTERVAL CHANGE IN THE APPEARANCE OF THE CHEST.
[2018-09-20] MEDS: CALCIUM ACETATE 667 MG CAP PO SCH ×3 (08:25→17:14)
[2018-09-20] MEDS: PANTOPRAZOLE 40 MG/10 ML VIAL IVP SCH (08:25)
[2018-09-20] MEDS: AMIODARONE 200 MG TAB PO SCH ×2 (08:25→22:29)
[2018-09-20] MEDS: CHLORHEXIDINE GLUCONATE 15 ML CUP MUCOUS MEM SCH ×2 (08:25→22:29)
--- NOTE | 2018-09-20 09:17 | P.PN ---
Subjective Progress Note Date: 09/20/18 Principal diagnosis: Acute kidney injury Seen and examined for the follow-up of acute kidney injury. Still on a ventilator. Had dialysis yesterday. Objective - Vital Signs Vital signs: Vital Signs Temp 98.5 F 09/20/18 08:00 Pulse 77 09/20/18 08:00 Resp 16 09/20/18 08:00 BP 119/65 09/16/18 14:03 Pulse Ox 99 09/20/18 08:00 Intake & Output 09/19/18 09/20/18 09/20/18 18:59 06:59 18:59 Intake Total 2200 1126.326 160 Output Total 4820 975 250 Balance -2620 151.326 -90 Weight 162 kg Intake: IV 412 362 52 Piperacillin-Tazobactam 3 100 50 .375 gm In Dextrose/Water 1 50ml.bag @ 12.5 mls/hr IVPB Q8H [facility] Rx#: [id number] Pressure bag 72 72 12 Sodium Chloride 0.9% 1, 240 240 40 000 ml @ 20 mls/hr IV . Q24H GIOVANNY Rx#:[id number] Intake, IV Titration 1272 644.326 Amount Bumetanide 12 mg In 272 Dextrose 5% in Water 192 ml @ 0.5 MG/HR 10 mls/hr IV .Q24H GIOVANNY Rx#: [id number] Heparin Sod,Pork in 0.45% 1000 644.326 NaCl 25,000 unit In 0.45 % NaCl 1 500ml.bag @ 14.9 UNITS/KG/HR 45.95 mls/hr IV .[id number] [facility]OVANNY Rx#: [id number] Tube Feeding 336 120 48 Other 180 60 Output: Urine 1120 975 250 Other 3700 Other: Voiding Method Indwelling Catheter Indwelling Catheter # Bowel Movements 1 ABP, PAP, CO, CI - Last Documented Arterial Blood Pressure 154/79 - Exam Intubated on a ventilator S1-S2 heard Clear anteriorly Gonsales dark urine Edema Right groin Kings catheter - Labs CBC & Chem 7: 09/20/18 04:30 09/20/18 04:30 Labs: Abnormal Lab Results - Last 24 Hours (Table) 09/19/18 09/19/18 09/19/18 Range/Units 12:20 17:29 23:44 WBC (3.8-10.6) k/uL RBC (4.30-5.90) m/uL Hgb (13.0-17.5) gm/dL Hct (39.0-53.0) % RDW (11.5-15.5) % Neutrophils # (Manual) (1.3-7.7) k/uL Monocytes # (Manual) (0-1.0) k/uL APTT (22.0-30.0) sec ABG Total CO2 (19-24) mmol/L Potassium (3.5-5.1) mmol/L BUN (9-20) mg/dL Creatinine (0.66-1.25) mg/dL Glucose (74-99) mg/dL POC Glucose (mg/dL) 106 H 112 H 102 H (75-99) mg/dL Phosphorus (2.5-4.5) mg/dL Magnesium (1.6-2.3) mg/dL 09/20/18 09/20/18 09/20/18 Range/Units 04:30 04:30 04:30 WBC 23.7 H (3.8-10.6) k/uL RBC 3.11 L (4.30-5.90) m/uL Hgb 9.5 L (13.0-17.5) gm/dL Hct 28.8 L (39.0-53.0) % RDW 16.5 H (11.5-15.5) % Neutrophils # (Manual) 20.38 H (1.3-7.7) k/uL Monocytes # (Manual) 1.19 H (0-1.0) k/uL APTT 94.8 H (22.0-30.0) sec ABG Total CO2 (19-24) mmol/L Potassium 3.3 L (3.5-5.1) mmol/L BUN 80 H (9-20) mg/dL Creatinine 4.63 H (0.66-1.25) mg/dL Glucose 110 H (74-99) mg/dL POC Glucose (mg/dL) (75-99) mg/dL Phosphorus 6.7 H (2.5-4.5) mg/dL Magnesium 2.8 H (1.6-2.3) mg/dL 09/20/18 09/20/18 Range/Units 05:12 06:24 WBC (3.8-10.6) k/uL RBC (4.30-5.90) m/uL Hgb (13.0-17.5) gm/dL Hct (39.0-53.0) % RDW (11.5-15.5) % Neutrophils # (Manual) (1.3-7.7) k/uL Monocytes # (Manual) (0-1.0) k/uL APTT (22.0-30.0) sec ABG Total CO2 27 H (19-24) mmol/L Potassium (3.5-5.1) mmol/L BUN (9-20) mg/dL Creatinine (0.66-1.25) mg/dL Glucose (74-99) mg/dL POC Glucose (mg/dL) 120 H (75-99) mg/dL Phosphorus (2.5-4.5) mg/dL Magnesium (1.6-2.3) mg/dL Assessment and Plan Assessment: #1 acute kidney injury secondary to hemodynamic ATN. Baseline creatinine around 1.0 MG per DL #2 vent-dependent respiratory failure #3 bilateral pulmonary embolism status post TPA #4 hemodynamic shock resolved currently off vasopressors. #5 hyperphosphatemia secondary to acute kidney injury #6 volume overload #7 metabolic acidosis Plan: #1 plan hemodialysis again on Friday. Monitor strict ins and outs. #2 continue with Bumex drip for now. #3 avoid nephrotoxic agents and hypotensive episodes. #4 replace electrolytes. #5 systolic blood pressure persistently more than 150 add scheduled antihypertensive medication.
[2018-09-20] MEDS: hydrALAZINE HCL 25 MG TAB PO SCH ×4 (09:55→22:29)
[2018-09-20] MEDS: BUMETANIDE 12 MG in DEXTROSE 5% IN WATER 192 ML IV SCH ×2 (09:56)
[2018-09-20 10:56] LABS: ABG Base Excess 1.4 mmol/L; ABG HCO3 27 mmol/L (21-25); ABG Oxygen Saturation 97.7 % (94-97); ABG PCO2 47 mmHg (35-45); ABG PH 7.37 (7.35-7.45); ABG PO2 110 mmHg (83-108); ABG TCO2 28 mmol/L (19-24)
[2018-09-20 11:45] LABS: Glucose,Whole Blood 111 mg/dL (75-99)
[2018-09-20] MEDS: MULTIVITAMINS, THERA 1 EACH TAB PO SCH (11:49)
--- NOTE | 2018-09-20 13:03 | PN ---
PROGRESS NOTE HISTORY: Mr. Rowley is a 52-year-old male who presented with bilateral massive pulmonary embolism with respiratory failure. He remains intubated. He appears to be slightly more awake today compared with yesterday. Hemodynamically stable. His blood pressure has been on the higher side. There is no ventricular tachycardia. He underwent dialysis yesterday and his urine output has been good on Bumex drip. His chest x-ray shows evidence of mild congestion but improving. He continues to be, at this time, on amiodarone 400 mg twice a day, IV heparin, hydralazine 25 mg q.i.d. PHYSICAL EXAMINATION: Blood pressure running 140 to 160 with a heart in the 80s. LUNGS: Clear anteriorly. NEUROLOGIC: He is opening his eyes to verbal stimulation. Very minimal movement. HEART: Regular rhythm S1, S2. No S3. No rub. ABDOMEN: Soft, obese. Positive bowel sounds. EXTREMITIES: +2 edema. LAB DATA: Lab data revealed a hemoglobin of 9.5, BUN 80 and creatinine 4.63. IMPRESSION: 1. Respiratory failure related to massive pulmonary embolism. 2. Acute renal injury. 3. Hypertension. 4. Physical deconditioning related to his presentation. 5. Morbid obesity. RECOMMENDATIONS: From the cardiac standpoint, I will cut down the dose of his amiodarone. Continue the rest of his medical regimen. We will continue evaluation for extubation depending on his pulmonary status. Once he is extubated, or if he is going to have a tracheostomy, then he can be switched to oral anticoagulants and the IV heparin can be stopped. MMODL / IJN: [id number] /
--- NOTE | 2018-09-20 13:25 | P.PN ---
Subjective Progress Note Date: 09/20/18 On 09/14/2018, I am seeing this patient for a follow-up in the intensive care unit. The patient was in following a massive but the pulmonary embolism, right ventricular enlargement and right ventricular strain pattern with subsequent hemodynamic collapse and cardiac arrest. The patient is post TPA infusion at time of the code. The patient is currently on IV heparin. In terms of his breathing, the patient is intubated on a mechanical ventilator. The patient is currently on an assist-control mode at the rate of 32 with a tidal volume of 500 and FiO2 of 50% with a PEEP of 10. The chest x-ray from today shows adequate positioning of 82. There is some atelectatic changes and infiltration of the right lung base. Meanwhile, the blood gases from today showed a pH of 7.32 with a pCO2 of 48 and pO2 of 116 and this was done on the above-mentioned ventilator settings. No significant orotracheal secretions. Breath other are equal and bilateral. Airway pressures are not elevated. Hemodynamically, the patient is on pressors at 3 mics of norepinephrine infusion for blood pressure support. He has been aggressively resuscitated IV fluids and a noted significant amount of weight gain over the past several days. The patient was given a dose of Lasix yesterday. In addition the patient was having episodes of SVTs throughout his current hospitalization and he was treated with adenosine and currently is on amiodarone orally 5 mg by mouth twice a day and his cardiac rhythm is normalized and his in sinus rhythm. Echocardiogram, the patient has an ejection fraction of 6065%. The rhythm to Doxil septal motion abnormality consistent with right ventricular volume/strain pattern. Of interest also is development of acute kidney injury. The patient came in initially with a normal renal function. Subsequently creatinine came up to 1.7 and currently is up to 2.41. He was given a dose of Lasix yesterday and none since yesterday. The patient is nonoliguric. The net fluid balance over the past 24 hours is +825 mL. He is having loose liquidy bowel movement. He is currently on vital 1.2 at the rate of 35 mL an hour. He is sedated with Diprivan. Lower oximetry is a swallow with extensive swelling of the right lower extremity which also has a DVT. The patient is having on and off low- grade fever and the patient is currently on IV Ancef. Most recent hemoglobin is at 8.0. White cell count is not elevated at 7.1. He remains on IV heparin regarding the massive bilateral pulmonary embolism. On 09/15/2018 I'm seeing this patient in follow-up in the intensive care unit. This morning the patient remains sedated on Diprivan, comfortable. A sedation holiday was given to this patient yesterday now was told that he was able to follow commands and his mentation seems to be intact despite his cardiac arrest. The patient remains sedated for this morning. Intubated on a mechanical ventilator. He is an assist-control mode of ventilation at the rate of 32 with a tidal volume of 500 and an FiO2 of 50% and PEEP of 7. Morning blood gases showed a pH of 7.35 with a pCO2 of 41 and pO2 of 124. Chest x-ray shows smaller lung volumes. There is evidence of better pleural effusion and pulmonary vessel congestion. ET tube is in a good location. No significant orotracheal secretions. The patient has been significant volume overload since admission to the hospital. I checked his fluid balance since admission and the patient has been is significant amount of positive fluid balance due to fluid resuscitation. Echo of the heart showed a preserved LV function yet the patient had a component of RV strain/overload related to his recent pulmonary embolism. I don't think this patient's chronic pulmonary hypertension. I do not think the patient has obesity hypoventilation syndrome knowing that his serum bicarb was low and within normal limits at a time of admission. In any rate, there is a component of fluid overload and the patient would benefit from diuresis. I did not diuresis patient yesterday based on the fact that the creatinine was on the rise. I'm awaiting follow-up creatinine levels from today and nephrology has also been consult on the case. He is afebrile for today. No leukocytosis. Hemoglobin stable at 7.5. Is tolerating his tube feeds. Massive edema lower extremity is bilaterally more so on the right. Cardiac rhythm remains sinus. No other significant events overnight. Antibiotic as an broadened and IV Ancef was discontinued yesterday and patient is currently on IV Zosyn. On 09/16/2018, I'm seeing this patient for a follow-up. The patient remains sedated on Diprivan. The patient admits intubated on a mechanical ventilator. On today's evaluation, the patient is on a 50 mics of Diprivan for sedation. He is receiving enteral feeding for nutritional support. He has demonstrated drop in hemoglobin down to 5.9 yet, there is no evidence of any exogenous bleeding. There is no evidence of any melanotic stool or any bloody output from the orotracheal tube or the NG tube. A total of 2 units of packed RBC was ordered. The patient was kept on IV heparin and PTT is therapeutic at 50. Also , the patient is still on a mechanical ventilator. Vent settings today include an assist-control mode at the rate of 26, FiO2 of 50%, PEEP of 7 and tidal volume of 500. The blood gases from today showed a pH of 7.29 with a pCO2 of 45 and pO2 of 107. Obviously the patient has a component of mild acidosis which is related to respiratory factors and metabolic factors as the patient's serum bicarb drip down to 18. The chest x-ray shows evidence of bilateral consolidation pleural effusion. There is evidence of pulmonary edema that is rather diffuse. ET tube and NG tube are both in a good location and the patient has a left-sided PICC line noted. Note that the patient was started on diuretics yesterday based on the fact that he was getting into significant positive fluid balance of fluid overload. Currently the patient on Lasix drip at 10 mg an hour. Urine output is improved, however the patient is still producing a low urine output around 30 mL an hour and the net fluid balance is positive and has been consistent positive over the past 1 week. He demonstrated signs of fluid overload the massive edema both in the upper and lower extremities more so in the right lower extremity. His renal function is impaired. The patient suffered an acute kidney injury. This is felt to be related to an ATN post cardiac arrest and possibly some contribution from contrast administration. The creatinine is up to 3.8 with a BUN of 57. The rest of the I's show a mild component of non-anion gap metabolic acidosis. He is afebrile. Is covered empirically with IV Zosyn for any possible aspiration pneumonia. No other significant events overnight. He is taken off pressors for now. On 09/17/2018, I'm seeing this patient for a follow-up. Unfortunately not much of the progress has been done on this patient's case since yesterday. In fact the patient's renal function is progressively getting worse and the patient is getting progressively more edematous and swollen especially in the lower extremities. In fact there is considerable amount of edema in the skin is weeping at this point in time. The patient is sedated on a mechanical ventilator. The patient remains on the same vent setting. I was able to cut down the PEEP down to 5 with an FiO2 of 40% at the rate of 26 and a tidal volume of 500. Chest x-ray is not showing any significant changes and the patient has by the pulmonary infiltrates most on the lower lobes and this could be related to fluid overload/pneumonia. At gases from today showed a pH of 7.28 with a pCO2 of 42 and pO2 of 103. The patient is developing a component of non-anion gap metabolic acidosis along with progressive worsening the renal function. A patient's serum bicarb is down to 16 and the creatinine is up to 4.7. The patient is tolerating his tube feeds. Minimal amount of bloody suctioning material from the orotracheal tube. He received a total of 2 units of packed RBCs yesterday. His hemoglobin today is up to 7.6. He remains on IV heparin with PTT being therapeutic at 48. The patient has normal platelet counts. He remains afebrile. He is on utilizing any pressors. I had a discussion with the medical technologist hematology and we are the progress of recommending dialysis for this patient. He will likely need a temporary dialysis catheter insertion today and dialysis for significant fluid overload the setting of an acute kidney injury. On 09/18/2018, I'm seeing this patient for a follow-up. The patient this morning is intubated on mechanical ventilator. He is essentially on the same vent setting. I switched him to a VC plus mode to make him more success with the mechanical ventilator. He is at the rate of 26 with a tidal volume of 500 and FiO2 of 40% and a PEEP of 5. His inspiratory time is set at 0.9 seconds. Also, the patient was taken off sedation. He has been off sedation for the past 4-5 hours. He is opening up his eyes. He is not following any commands. He is still somnolent and encephalopathic at this point in time and there has been no meaningful clinical response or any following of any commands at this point in time. He is started on hemodialysis. The Vas-Cath was inserted in his right groin/femoral vein and the patient received the first session of dialysis yesterday without a total of 2 L of fluid was removed. He started on another session of dialysis today and the goal is to ultrafiltrate him with a total of 3 L. He is still quite edematous in the upper and lower extremities. Chest x-ray still showing lower lobe infiltrates probably combination of pneumonia/volume overload. The blood gases from today showed a pH of 7.29 with a pCO2 of 47 and pO2 113. His white cell count is at 25.9 yet the patient is afebrile and the patient is covered with IV Zosyn. He is on a Lasix drip at 50 mg an hour. The patient was producing urine output in the order of 70 mL an hour. In effort to restrict his IV fluids aspiration. Bumex drip at the rate of 0.5 mg an hour. He is also on IV heparin with a therapeutic PTT. Family at the bedside. I then elected discussion with his sister and updated on his condition. Receiving enteral feeding for nutritional support. He is on Nepro. He did have 2 loose bowel movements yesterday. On 09/19/2018, the patient is being seen for a follow-up. We are the process of performing daily dialysis on this patient. On today's evaluation is still off sedation. He is very slow to arouse. I noted that his grimacing to painful stimulation and on one instance he follow the command when he was able to squeeze my finger. Nevertheless he is not following commands on a regular basis. He remains quite encephalopathic. This could be still a drug effect or also related to metabolic factors. In any rate, the patient remains on a mechanical ventilator at the same vent setting which is a VC plus mode at the rate of 26, tidal volume of 500, FiO2 of 40% and a PEEP of 5. The chest x-ray from today shows some improvement in the elevation and infiltration of the lung bases bilaterally. The blood gas showed a pH of 7.34 with a pCO2 of 44 and pO2 of 95 and FiO2 of 40%. He is on no pressors. I noted the white count gradually is going up. The patient on IV Zosyn. Cultures of been all negative. The patient has a temper dialysis catheter in his right groin. Lower extremity edema is improved compared to yesterday. Remains on a Bumex drip at 0.5 mg an hour. Plan is to perform another dialysis today. We are monitoring the electrolytes. No weaning trial. Special that the patient's mental status is not fully recovered. We'll keep the patient off sedation. On 09/20/2018, the patient remains off sedation. There has been gradual improvement in the patient's mentation. This morning I was able to make this patient. Simple commands. He is profoundly weak and is unable to move his extremities against gravity. I'm very much pleased to see this patient following some simple commands. He is intubated on a mechanical ventilator. He remains on assist control mode at the rate of 26, tidal volume of 500 with an FiO2 of 40% and a PEEP of 5. His chest x-ray from showed bibasilar airspace disease. There is some cardiomegaly. No major improvement compared to yesterday. The patient's blood gas today showed a pH of 7.37 with a pCO2 of 42 and pO2 of 94. Based on all this, I check weaning parameters and I give this patient a spontaneous breathing trial with a pressure support of 5 and a PEEP of 5. After 30 minutes of this child, the blood gas showed a pH of 7.37 with a pCO2 of 47 and pO2 110. Nevertheless the patient was is not ready for extubation. He was tachypneic. His blood pressure was shooting up. He was quite uncomfortable. I think based on his significant amount of weakness and debility, and weak cough, I decided not to extubate the patient today. The patient is producing adequate amount of urine output while being a Bumex drip at 0.5 mg/h. The patient is producing approximately 70 mL an hour of urine output. The neck fluid balance is negative. The last dialysis was done yesterday and the patient had 3 sessions of hemodialysis [id number] and currently he is off dialysis. He will be having another session of dialysis tomorrow. He is receiving enteral feeding for nutritional support. No nausea. No emesis. Lower extremity edema seems to have improved. He remains on IV Zosyn. No other significant events overnight. Objective - Vital Signs Vital signs: Vital Signs Temp 98.2 F 09/20/18 12:00 Pulse 98 09/20/18 13:00 Resp 30 H 09/20/18 13:00 BP 119/65 09/16/18 14:03 Pulse Ox 93 L 09/20/18 13:00 Intake & Output 09/19/18 09/20/18 09/20/18 18:59 06:59 18:59 Intake Total 2200 9605.053 6013.386 Output Total 4820 975 665 Balance -2620 151.326 418.386 Weight 162 kg Intake: IV 412 362 232 Piperacillin-Tazobactam 3 100 50 50 .375 gm In Dextrose/Water 1 50ml.bag @ 12.5 mls/hr IVPB Q8H [facility] Rx#: [id number] Pressure bag 72 72 42 Sodium Chloride 0.9% 1, 240 240 140 000 ml @ 20 mls/hr IV . Q24H [facility] Rx#:[id number] Intake, IV Titration 1272 644.326 509.386 Amount Bumetanide 12 mg In 272 222.333 Dextrose 5% in Water 192 ml @ 0.5 MG/HR 10 mls/hr IV .Q24H [facility] Rx#: [id number] Heparin Sod,Pork in 0.45% 1000 644.326 287.053 NaCl 25,000 unit In 0.45 % NaCl 1 500ml.bag @ 14.9 UNITS/KG/HR 45.95 mls/hr IV .[id number] [facility] Rx#: [id number] Tube Feeding 336 120 192 Other 180 150 Output: Urine 1120 975 665 Other 3700 Other: Voiding Method Indwelling Catheter Indwelling Catheter Indwelling Catheter # Bowel Movements 1 ABP, PAP, CO, CI - Last Documented Arterial Blood Pressure 184/77 - Exam No acute distress, the patient is currently off sedation. He opens his eyes spontaneously. He grimaces. He was able to response to simple commands on today's evaluation. endotracheal tube and NG tube are in good position. HEENT examination is grossly unremarkable. Mucous membranes are moist. Neck supple. Full range of motion. No adenopathy thyromegaly or neck vein distention. The patient has a triple-lumen catheter in his neck left IJ area. Cardiovascular examination reveals regular rhythm rate. S1-S2 normal. No S3 or S4. No discernible murmur noted. Cardiac exam revealed the PMI to be normally situated and sized. The rhythm was regular and no extrasystoles were noted during several minutes of auscultation. The first and second heart sounds were normal and physiologic splitting of the second heart sound was noted. There were no murmurs, rubs, clicks, or gallops. Lungs reveal coarse bilateral breath sounds. Crackles are noted bilaterally in our bit worse today. Diffuse rhonchi are appreciated. No wheezes. Breath sounds are diminished throughout. Breath sounds are equal bilaterally. Abdomen is obese. Bowel sounds are noted. No masses appreciated.Abdominal exam revealed normal bowel sounds. The abdomen was soft, non-tender, and without masses, organomegaly, or appreciable enlargement of the abdominal aorta. Extremities. There is some chronic venous stasis changes. There is significant amount of weeping from the skin surface.. Some mild livedo reticularis. Note that the right lower extremity is more swollen compared to the left. This is 2 pitting edema in the right lower extremity. Skin is reveal some chronic venous stasis changes. The patient has improvement in lower extremity edema compared to yesterday. No open wounds or sores at this point in time. Neurologic examination shows equal and symmetrical pupils. No nystagmus. No facial asymmetry. He withdraws to stimulation. No purposeful movements. Positive cough. Positive gag. The patient is currently off sedation. He grimaces to painful stimulation. He was able to follow simple commands. Extreme motor weakness in all 4 extremities. Reflexes cannot be elicited. No Babinski. No clonus. - Labs CBC & Chem 7: 09/20/18 04:30 09/20/18 04:30 Labs: Abnormal Lab Results - Last 24 Hours (Table) 09/19/18 09/19/18 09/20/18 Range/Units 17:29 23:44 04:30 WBC (3.8-10.6) k/uL RBC (4.30-5.90) m/uL Hgb (13.0-17.5) gm/dL Hct (39.0-53.0) % RDW (11.5-15.5) % Neutrophils # (Manual) (1.3-7.7) k/uL Monocytes # (Manual) (0-1.0) k/uL APTT 94.8 H (22.0-30.0) sec ABG pCO2 (35-45) mmHg ABG pO2 (83-108) mmHg ABG HCO3 (21-25) mmol/L ABG Total CO2 (19-24) mmol/L ABG O2 Saturation (94-97) % Potassium (3.5-5.1) mmol/L BUN (9-20) mg/dL Creatinine (0.66-1.25) mg/dL Glucose (74-99) mg/dL POC Glucose (mg/dL) 112 H 102 H (75-99) mg/dL Phosphorus (2.5-4.5) mg/dL Magnesium (1.6-2.3) mg/dL 09/20/18 09/20/18 09/20/18 Range/Units 04:30 04:30 05:12 WBC 23.7 H (3.8-10.6) k/uL RBC 3.11 L (4.30-5.90) m/uL Hgb 9.5 L (13.0-17.5) gm/dL Hct 28.8 L (39.0-53.0) % RDW 16.5 H (11.5-15.5) % Neutrophils # (Manual) 20.38 H (1.3-7.7) k/uL Monocytes # (Manual) 1.19 H (0-1.0) k/uL APTT (22.0-30.0) sec ABG pCO2 (35-45) mmHg ABG pO2 (83-108) mmHg ABG HCO3 (21-25) mmol/L ABG Total CO2 27 H (19-24) mmol/L ABG O2 Saturation (94-97) % Potassium 3.3 L (3.5-5.1) mmol/L BUN 80 H (9-20) mg/dL Creatinine 4.63 H (0.66-1.25) mg/dL Glucose 110 H (74-99) mg/dL POC Glucose (mg/dL) (75-99) mg/dL Phosphorus 6.7 H (2.5-4.5) mg/dL Magnesium 2.8 H (1.6-2.3) mg/dL 09/20/18 09/20/18 09/20/18 Range/Units 06:24 10:55 11:42 WBC (3.8-10.6) k/uL RBC (4.30-5.90) m/uL Hgb (13.0-17.5) gm/dL Hct (39.0-53.0) % RDW (11.5-15.5) % Neutrophils # (Manual) (1.3-7.7) k/uL Monocytes # (Manual) (0-1.0) k/uL APTT (22.0-30.0) sec ABG pCO2 47 H (35-45) mmHg ABG pO2 110 H (83-108) mmHg ABG HCO3 27 H (21-25) mmol/L ABG Total CO2 28 H (19-24) mmol/L ABG O2 Saturation 97.7 H (94-97) % Potassium (3.5-5.1) mmol/L BUN (9-20) mg/dL Creatinine (0.66-1.25) mg/dL Glucose (74-99) mg/dL POC Glucose (mg/dL) 120 H 111 H (75-99) mg/dL Phosphorus (2.5-4.5) mg/dL Magnesium (1.6-2.3) mg/dL Assessment and Plan Plan: Assessment 1 acute hypoxic respiratory failure secondary to massive bilateral pulmonary embolism, status post cardiac pulmonary arrest, status post TPA treatment, currently on IV heparin. The patient remains intubated on a mechanical ventilator. The subsequent follow-up chest x-ray shows evidence of interstitial edema and bilateral pleural effusion and possibly a component of bilateral pneumonia. The patient is currently on IV Zosyn. The patient is also in acute renal failure with significant amount of massive fluid overload. Based on all this, the patient was started on hemodialysis . On today's evaluation, the patient is awake. The patient is following some simple commands. This profound weakness in all 4 extremities. The patient has a weak cough. The patient has poor ability to the respiratory secretions. The patient was able to pass a spontaneous breathing trial and despite that I decided not to extubate the patient. I'm willing to reevaluate the condition tomorrow. Probably do another breathing trial. If he remains profoundly weak and somewhat encephalopathic, he may be a good candidate for PEG and trach at a later stage. 2 acute respiratory failure secondary to above, currently intubated on a mechanical ventilator, secondary to above 3 massive pulmonary embolism with right ventricular strain and dilatation with subsequent cardiac arrest, without clear evidence of any anoxic or hypoxic encephalopathy. She remains on IV heparin. 4 acute cardio-pulmonary arrest secondary to massive PE, post TPA administration 5 encephalopathy. Rule out metabolic encephalopathy. Rule out hypoxic encephalopathy. The patient is being dialyzed on a daily basis. He is currently off sedation. He is opening his eyes and following some simple commands. His encephalopathy is gradually improving. Nevertheless he demonstrates profound weakness in all 4 extremities without weak cough and this has been an ongoing factor preventing me from extubated in this patient. 6 acute kidney injury with signs of massive fluid overload and the patient underwent 3 sessions of hemodialysis and currently he is on Bumex drip with adequate urine output. 7 acute DVT of the right lower extremity, currently on IV heparin 8 morbid obesity with a BMI of 46.5 9 history of smoking 10 history of anxiety 11 chronic normocytic anemia, multifactorial 12 bilateral lower lobe pneumonia suspected, possibly of an aspiration type, on the recent chest x-ray shows bilateral lower lobe consolidation. 13 episodes of SVT, currently in sinus rhythm 14 morbid obesity with a BMI of 46.8 Plan We'll keep the patient off sedation. We'll proceed with another hemodialysis session tomorrow. The weaning parameters was noted. Spontaneous breathing trial was done. Decided not to extubate the patient due to the factors mentioned above. May need to repeat the same process again tomorrow and may consider extubation if the patient is much more alert and awake him stronger in terms of motor function. Meanwhile, continue rest of the supportive care. Continue IV heparin. Continue IV Zosyn. Enterofeeding via PEG tube for nutritional support. Will not transition to patient to a long-term tie coagulation yet. The patient may ultimately need a PEG and trach. This is discussed with the family. We will monitor his progress over the next 24-48 hours no make further decision regarding extubation versus PEG and trach. She remains critical. We'll continue to follow. This evaluation was done more than 30 minutes. Time with Patient: Greater than 30
[2018-09-20 18:07] LABS: Glucose,Whole Blood 109 mg/dL (75-99)
[2018-09-20] MEDS: SODIUM CHLORIDE 0.9% 1,000 ML IV SCH (22:31)
--- NOTE | 2018-09-20 23:26 | P.PN ---
Subjective Progress Note Date: 09/20/18 Principal diagnosis: Massive pulmonary embolism Acute cardiopulmonary arrest status post CPR and intubation Patient is a 52-year-old male with a known history of chronic bilateral lower extremity lymphedema and history of pulmonary embolism about a year ago, currently not taking Coumadin for the past 6-8 months came to ER with complaints of acute worsening shortness of breath since yesterday. Patient says that he has been having shortness of breath for the last couple of weeks but suddenly got worse yesterday. Patient was told that his DVT and pulmonary embolus was secondary to sedentary lifestyle and sleeping in a sitting position. Patient states he took his Coumadin for about 6 months. He was so several follow-up appointment in November for repeat evaluation however he did not follow-up with that appointment. He stopped his Coumadin in November. Denies any constitutional symptoms. Patient feels much more short of breath with exertion. Chest pain. He feels as though both of his legs are much more edematous than usual suspicion is right lower extremity. Lower extremity duplex scan showed acute DVT right popliteal vein through the proximal calf veins CTA chest showed massive bilateral pulmonary embolism with right ventricular enlargement suggestive of right ventricular strain correlate clinically. A 7 mm and 4 mm right lower lobe pulmonary nodule not seen previous exam subpleural in location could be inflammatory. WBC 14.1 Troponin 0.258 Potassium 5.3 On 09/09/2018 Patient had a brief episode of cardiopulmonary arrest this morning and developed respiratory distress. Subsequently patient was intubated and was transferred to MICU. Patient had a difficult intubation. Patient was given TPA by ER physician. Patient also received multiple doses of epinephrine and sodium bicarbonate. Patient is currently on Levophed drip. Being continued on heparin drip as well. Patient is currently sedated. Initial ABG showed pH 7.0, pCO2 80, pO2 118 Patient was seen by cardiology and pulmonary. 09/10/2018 Patient is currently mechanically ventilated and sedated. Patient is being continued on heparin drip. Continues to be on Levothroid drip. Patient had SVT during cardiopulmonary arrest. Patient was started on amiodarone.. Otherwise hemoglobin dropped to 10.7 today. Continues to have bloody secretions which is being suctioned. Chest x-ray showed bilateral pleural effusion and consolidation. AST 559 and ALT 509 albumin 2.6. Cultures negative so far. Creatinine 1.76. 09/11/2018 52-year-old gentleman with a history of massive bilateral pulmonary embolism right ventricular enlargement and right heart strain. He did receive systemic TPA and was on IV heparin until yesterday which time was turned off because of ongoing bleeding. The patient's overall prognosis remains very guarded. The patient remains on ventilator. Arterial blood gases show a PaO2 of 113 PaCO2 38 and a pH of 7.4. The patient is on saline at 75 mL an hour; Heparin was discontinued yesterday because of ongoing bleeding from the cavity and NG tube. In addition, he's had about a 1 g hemoglobin drop on a daily basis. This morning's hemoglobin is 9.9. 09/12/2018; The patient's overall prognosis remains very guarded. The patient was given a daily interruption of sedation today but could not have a spontaneous breathing trial because he became very tachypnea with respiratory rates above 40. Currently, he is on the volume assist control mode rate of 32, tidal volume 500 , FiO2 35% to be increased to 40% and 5 of PEEP. Arterial blood gases showed a PaO2 of 59 a PaCO2 of 43 and a pH 7.37. That was on 35% FiO2. In addition, the patient's on norepinephrine at 7 mics per minute, propofol at 65 mcg/kg/m, saline IV at 75 mL an hour, heparin via weightbase protocol and vital 1.2 at goal. Chest x-ray shows bilateral effusions with basilar atelectasis and/or infiltrates. On 09/15/2018 Patient currently on mechanical ventilation with assist control and sedation. Patient is being continued on IV heparin. Hemoglobin is 7.5. Renal function slightly worsened with increasing creatinine level 3.56. No active bleeding noted. Chest x-ray showed bilateral pleural effusion and pulmonary vascular congestion. Patient was given a dose of Lasix previously. Patient is currently on antibiotics in the form of Zosyn. 09/16/2018 Patient was seen and examined in the MICU. Currently maintained on mechanical ventilator. Hemoglobin dropped to 5.9 today. 2 units of PRBC was ordered. No signs of active bleeding noted. Patient is being continued on IV heparin. Chest x-ray showed evidence of bilateral consolidation and pleural effusion. Correlate for pulmonary edema and diffuse pneumonia. Currently on Lasix drip. Creatinine level increased to 3.89 today. Otherwise patient is getting empiric antibiotics for possible pneumonia aspiration likely. Patient is being followed by pulmonary cardiology and nephrology. 09/17/2018 Patient is currently on mechanical ventilator. Chest x-ray showed possible fluid overload/pneumonia. Creatinine is trending up at 4.7 today. Hemoglobin is 7.6. Continued on IV heparin. held for permacath placement. Nephrology is planning for hemodialysis. No fever no chills. 09/20/2018 Patient is on mechanical ventilator. Patient is off sedation and is able to blink his eyes. Patient is being continued on hemodialysis. Patient had 3 hemodialysis sessions last one yesterday. Continued on IV antibiotics the form of Zosyn. Leukocytosis slightly improved to 23.7, hemoglobin 9.5 No other acute overnight issues. Current medications reviewed. Active Medications Active Medications Generic Name Dose Route Start Last Admin Trade Name Freq PRN Reason Stop Dose Admin Albuterol/Ipratropium 3 ml 09/09/18 09:37 Duoneb 0.5 Mg-3 Mg/3 Ml Soln INHALATION RT-Q2H PRN Shortness Of Breath Or Wheezing Albuterol/Ipratropium 3 ml 09/09/18 12:00 09/20/18 23:21 Duoneb 0.5 Mg-3 Mg/3 Ml Soln INHALATION 3 ml RT-Q4H GIOVANNY Administration Amiodarone HCl 200 mg 09/20/18 21:00 09/20/18 22:29 Cordarone PO 200 mg BID GIOVANNY Administration Calcium Acetate 667 mg 09/17/18 07:30 09/20/18 17:14 Phoslo PO 667 mg TID-W/MEALS GIOVANNY Administration Chlorhexidine Gluconate 15 ml 09/09/18 21:00 09/20/18 22:29 Peridex MUCOUS MEM 15 ml BID GIOVANNY Administration Heparin Sodium (Porcine) 0 unit 09/08/18 10:49 09/09/18 04:34 Heparin IV 4,000 unit PER PROTOCOL PRN Administration Low PTT Protocol Hydralazine HCl 10 mg 09/18/18 21:19 09/20/18 04:53 Apresoline IVP 10 mg Q4HR PRN Administration Blood Pressure - High Hydralazine HCl 25 mg 09/20/18 09:30 09/20/18 22:29 Apresoline PO 25 mg QID GIOVANNY Administration Hydromorphone HCl 1 mg 09/10/18 17:33 09/20/18 18:01 Dilaudid IVP 1 mg Q1HR PRN Administration Mild to Moderate Pain Hydromorphone HCl 2 mg 09/10/18 17:33 09/20/18 21:18 Dilaudid IVP 2 mg Q1HR PRN Administration Moderate to Severe Pain Heparin Sodium/Sodium Chloride 500 mls @ 45.95 mls/hr 09/08/18 11:00 11:50 25,000 unit/ Sodium Chloride IV 16 units/kg/hr .[id number] GIOVANNY 49.35 mls/hr Administration Protocol 14.9 UNITS/KG/HR Propofol 1,000 mg/ IV Solution 100 mls @ 0 mls/hr 09/09/18 09:45 09/18/18 09: 02 IV 0 mcg/kg/min .Q0M GIOVANNY 0 mls/hr Titration Protocol Titrate Norepinephrine Bitartrate 16 250 mls @ 0 mls/hr 09/09/18 10:00 09/15/18 14:40 mg/ Sodium Chloride IV 0 mcg/min .Q0M GIOVANNY 0 mls/hr Titration Protocol Titrate Sodium Chloride 1,000 mls @ 20 mls/hr 09/10/18 12:45 09/20/18 22:31 Saline 0.9% IV 20 mls/hr .Q24H GIOVANNY Administration Acetaminophen 1,000 mg/ IV 100 mls @ 400 mls/hr 09/13/18 20:44 09/13/18 21:55 Solution IVPB 400 mls/hr ONCE PRN Administration Fever>101 Piperacillin/Tazobactam/ 50 mls @ 12.5 mls/hr 09/14/18 10:00 09/20/18 18:01 Dextrose 3.375 gm/ IV Solution IVPB 12.5 mls/hr Q8H GIOVANNY Administration Bumetanide 12 mg/ Dextrose/ 240 mls @ 10 mls/hr 09/18/18 10:30 09/20/18 09:56 Water IV 0.5 mg/hr .Q24H GIOVANNY 10 mls/hr Administration 0.5 MG/HR Insulin Aspart 0 unit 09/10/18 06:00 09/20/18 18:08 Novolog SQ Not Given Q6HR GIOVANNY Protocol Miscellaneous Information 1 each 09/10/18 16:16 Potassium Per Protocol MISCELLANE DAILY PRN Per Protocol Protocol Miscellaneous Information 1 each 09/10/18 22:11 Magnesium Per Protocol MISCELLANE DAILY PRN Per Protocol Protocol Multivitamins 1 each 09/09/18 12:00 09/20/18 11:49 Theragran PO 1 each DAILY@1200 GIOVANNY Administration Naloxone HCl 0.2 mg 09/08/18 15:00 Narcan IV Q2M PRN Opioid Reversal Pantoprazole Sodium 40 mg 09/10/18 09:00 09/20/18 08:25 Protonix IVP 40 mg DAILY GIOVANNY Administration Objective - Vital Signs Vital signs: Vital Signs Temp 98.2 F 09/20/18 12:00 Pulse 81 09/20/18 15:44 Resp 14 09/20/18 15:00 BP 119/65 09/16/18 14:03 Pulse Ox 98 09/20/18 15:00 Intake & Output 09/19/18 09/20/18 09/20/18 18:59 06:59 18:59 Intake Total 2200 0641.424 5816.386 Output Total 4820 975 855 Balance -2620 151.326 338.386 Weight 162 kg Intake: IV 412 362 284 Piperacillin-Tazobactam 3 100 50 50 .375 gm In Dextrose/Water 1 50ml.bag @ 12.5 mls/hr IVPB Q8H GIOVANNY Rx#: [id number] Pressure bag 72 72 54 Sodium Chloride 0.9% 1, 240 240 180 000 ml @ 20 mls/hr IV . Q24H GIOVANNY Rx#:[id number] Intake, IV Titration 1272 644.326 509.386 Amount Bumetanide 12 mg In 272 222.333 Dextrose 5% in Water 192 ml @ 0.5 MG/HR 10 mls/hr IV .Q24H GIOVANNY Rx#: [id number] Heparin Sod,Pork in 0.45% 1000 644.326 287.053 NaCl 25,000 unit In 0.45 % NaCl 1 500ml.bag @ 14.9 UNITS/KG/HR 45.95 mls/hr IV .[id number] GIOVANNY Rx#: [id number] Tube Feeding 336 120 240 Other 180 160 Output: Urine 1120 975 855 Other 3700 Other: Voiding Method Indwelling Catheter Indwelling Catheter Indwelling Catheter # Bowel Movements 1 ABP, PAP, CO, CI - Last Documented Arterial Blood Pressure 149/66 - Exam PHYSICAL EXAMINATION: Patient is lying in the bed comfortably, currently intubated HEENT: Normocephalic. Neck is supple. Pupils reactive. Nostrils clear. Oral cavity is moist. Ears reveal no drainage. Neck reveals no JVD, carotid bruits, or thyromegaly. CHEST EXAMINATION: Trachea is central. Symmetrical expansion. Bibasilar diminished air entry and crackles present. CARDIAC: Normal S1, S2 with no gallops. No murmurs ABDOMEN: Soft. Bowel sounds normal. No organomegaly. No abdominal bruits. Extremities: Bilateral lower extremity lymphedema with 3+ edema. No clubbing or cyanosis Neurologically . Patient is awake. Extremity week. Currently intubated. Skin: No rash or skin lesions except above. Psychiatric: Could not be assessed at this time. - Labs CBC & Chem 7: 09/20/18 04:30 09/20/18 04:30 Labs: Abnormal Lab Results - Last 24 Hours (Table) 09/19/18 09/19/18 09/20/18 Range/Units 17:29 23:44 04:30 WBC (3.8-10.6) k/uL RBC (4.30-5.90) m/uL Hgb (13.0-17.5) gm/dL Hct (39.0-53.0) % RDW (11.5-15.5) % Neutrophils # (Manual) (1.3-7.7) k/uL Monocytes # (Manual) (0-1.0) k/uL APTT 94.8 H (22.0-30.0) sec ABG pCO2 (35-45) mmHg ABG pO2 (83-108) mmHg ABG HCO3 (21-25) mmol/L ABG Total CO2 (19-24) mmol/L ABG O2 Saturation (94-97) % Potassium (3.5-5.1) mmol/L BUN (9-20) mg/dL Creatinine (0.66-1.25) mg/dL Glucose (74-99) mg/dL POC Glucose (mg/dL) 112 H 102 H (75-99) mg/dL Phosphorus (2.5-4.5) mg/dL Magnesium (1.6-2.3) mg/dL 09/20/18 09/20/18 09/20/18 Range/Units 04:30 04:30 05:12 WBC 23.7 H (3.8-10.6) k/uL RBC 3.11 L (4.30-5.90) m/uL Hgb 9.5 L (13.0-17.5) gm/dL Hct 28.8 L (39.0-53.0) % RDW 16.5 H (11.5-15.5) % Neutrophils # (Manual) 20.38 H (1.3-7.7) k/uL Monocytes # (Manual) 1.19 H (0-1.0) k/uL APTT (22.0-30.0) sec ABG pCO2 (35-45) mmHg ABG pO2 (83-108) mmHg ABG HCO3 (21-25) mmol/L ABG Total CO2 27 H (19-24) mmol/L ABG O2 Saturation (94-97) % Potassium 3.3 L (3.5-5.1) mmol/L BUN 80 H (9-20) mg/dL Creatinine 4.63 H (0.66-1.25) mg/dL Glucose 110 H (74-99) mg/dL POC Glucose (mg/dL) (75-99) mg/dL Phosphorus 6.7 H (2.5-4.5) mg/dL Magnesium 2.8 H (1.6-2.3) mg/dL 09/20/18 09/20/18 09/20/18 Range/Units 06:24 10:55 11:42 WBC (3.8-10.6) k/uL RBC (4.30-5.90) m/uL Hgb (13.0-17.5) gm/dL Hct (39.0-53.0) % RDW (11.5-15.5) % Neutrophils # (Manual) (1.3-7.7) k/uL Monocytes # (Manual) (0-1.0) k/uL APTT (22.0-30.0) sec ABG pCO2 47 H (35-45) mmHg ABG pO2 110 H (83-108) mmHg ABG HCO3 27 H (21-25) mmol/L ABG Total CO2 28 H (19-24) mmol/L ABG O2 Saturation 97.7 H (94-97) % Potassium (3.5-5.1) mmol/L BUN (9-20) mg/dL Creatinine (0.66-1.25) mg/dL Glucose (74-99) mg/dL POC Glucose (mg/dL) 120 H 111 H (75-99) mg/dL Phosphorus (2.5-4.5) mg/dL Magnesium (1.6-2.3) mg/dL 09/20/18 Range/Units 12:45 WBC (3.8-10.6) k/uL RBC (4.30-5.90) m/uL Hgb (13.0-17.5) gm/dL Hct (39.0-53.0) % RDW (11.5-15.5) % Neutrophils # (Manual) (1.3-7.7) k/uL Monocytes # (Manual) (0-1.0) k/uL APTT 57.7 H (22.0-30.0) sec ABG pCO2 (35-45) mmHg ABG pO2 (83-108) mmHg ABG HCO3 (21-25) mmol/L ABG Total CO2 (19-24) mmol/L ABG O2 Saturation (94-97) % Potassium (3.5-5.1) mmol/L BUN (9-20) mg/dL Creatinine (0.66-1.25) mg/dL Glucose (74-99) mg/dL POC Glucose (mg/dL) (75-99) mg/dL Phosphorus (2.5-4.5) mg/dL Magnesium (1.6-2.3) mg/dL Assessment and Plan Assessment: Acute cardiopulmonary arrest likely due to pulmonary embolism. Status post CPR and spontaneous return of circulation Acute hypercapnic respiratory failure. Currently on mechanical ventilator Massive pulmonary embolism with right ventricular strain. Patient was given TPA during CPR Acute hypotension . Was on on pressor support. 2-D echocardiogram showed normal LV function Pulmonary edema Possible right lower lobe pneumonia Nonoliguric acute kidney injury due to ATN. Started on hemodialysis during this admission. Acute on chronic anemia. Possible acute blood loss anemia Elevated troponin level secondary to right ventricular strain Acute lower extremity DVT Family history of pulmonary embolism in his brother Mild hyperkalemia 5.3 Recent history of pulmonary embolism about a year ago. Stopped taking Coumadin since November 2017 Previous history of smoking Bilateral lower extremity chronic lymphedema Morbid obesity with BMI 43.7 Seborrheic dermatitis history Anxiety Plan: Patient will be continued on IV heparin and monitor closely in the MICU. Patient was given TPA. Patient is off pressor support. Cardiology and pulmonary is following. Continue with mechanical ventilation. Monitor H&H. 2 units of PRBC transfusion was done on 09/16/2018. Monitor renal function and also monitor for any GI bleed. Hemodialysis scheduled for tomorrow. Prognosis is poor. Further recommendations based on the clinical course. Time with Patient: Greater than 30
[2018-09-20 23:36] LABS: Glucose,Whole Blood 104 mg/dL (75-99)
[2018-09-21] MEDS: HYDROmorphone 1 MG/ML 1 ML SYRINGE IVP PRN ×5 (01:36→23:16)
[2018-09-21] MEDS: PIPERACILLIN-TAZOBACTAM 3.375 GM in DEXTROSE/WATER 1 50ML.BAG IVPB SCH ×3 (01:37→18:38)
[2018-09-21] MEDS: HEPARIN SOD,PORK IN 0.45% NACL 25,000 UNIT in 0.45% NACL 1 500ML.BAG IV SCH ×3 (01:45→22:30)
[2018-09-21] MEDS: IPRATROPIUM-ALBUTEROL 3 ML NEB INHALATION SCH ×7 (03:09→23:17)
[2018-09-21 05:10] LABS: Anisocytosis Slight; Hypochromasia Slight; MCH 30.3 pg (25.0-35.0); MCV 94.6 fL (80.0-100.0); Mean Platelet Volume 7.3; Platelet Count 359 k/uL (150-450); RBC 2.96 m/uL (4.30-5.90); RDW 16.9 % (11.5-15.5); WBC 17.3 k/uL (3.8-10.6)
[2018-09-21 05:33] LABS: ABG Base Excess 0.4 mmol/L; ABG HCO3 26 mmol/L (21-25); ABG PCO2 51 mmHg (35-45); ABG PH 7.33 (7.35-7.45); ABG PO2 115 mmHg (83-108); ABG TCO2 28 mmol/L (19-24)
[2018-09-21 05:43] LABS: Glucose,Whole Blood 119 mg/dL (75-99)
[2018-09-21 05:50] LABS: ABG Oxygen Saturation 98.9 % (94-97)
[2018-09-21] MEDS: INSULIN ASPART 100 UNIT/ML 1 ML 10 ML VIAL SQ SCH ×3 (06:00→18:38)
[2018-09-21 06:07] LABS: Band Neutrophils % 6 %; Eosinophils # (M) 0.17 k/uL (0-0.7); Lymphocytes # (M) 2.77 k/uL (1.0-4.8); Monocytes # (M) 0.52 k/uL (0-1.0); Myelocytes # (M) 1.04 k/uL (0); Myelocytes % 6 %; Neutrophils % (M) 70 %; Nucleated Red Blood Cells 0 /100 WBC (0-0); Total Cells Counted 200
[2018-09-21 06:08] LABS: Polychromasia Present
[2018-09-21 06:32] LABS: Calcium 8.9 mg/dL (8.4-10.2); Magnesium 2.8 mg/dL (1.6-2.3); Phosphorus 7.6 mg/dL (2.5-4.5); Potassium 3.4 mmol/L (3.5-5.1)
[2018-09-21] MEDS ORDERED: POTASSIUM BICARBONATE/CIT AC 20 MEQ TABLET.EFF PO ONE ×2 (07:10)
--- NOTE | 2018-09-21 07:53 | XR ---
EXAMINATION TYPE: XR chest 1V portable DATE OF EXAM: 09/21/2018 COMPARISON: Prior chest x-ray 09/12/2018 HISTORY: Intubated TECHNIQUE: Single frontal view of the chest is obtained. FINDINGS: Endotracheal tube and NG tube are overlying appropriate positions, left jugular central ve nous catheter is stable. Pleural parenchymal changes are similar to prior exam. Heart remains enlarge d. No evident pneumothorax. IMPRESSION: Correlate for congestive heart failure, pneumonia not excluded. There may be basilar eff usions. Follow-up is recommended.
[2018-09-21] MEDS: CHLORHEXIDINE GLUCONATE 15 ML CUP MUCOUS MEM SCH ×2 (08:16→22:12)
[2018-09-21] MEDS: PANTOPRAZOLE 40 MG/10 ML VIAL IVP SCH (08:16)
[2018-09-21] MEDS: hydrALAZINE HCL 25 MG TAB PO SCH ×4 (08:16→22:12)
[2018-09-21] MEDS: CALCIUM ACETATE 667 MG CAP PO SCH ×3 (08:18→18:38)
[2018-09-21] MEDS: AMIODARONE 200 MG TAB PO SCH ×2 (08:18→22:12)
[2018-09-21] MEDS: METOPROLOL TARTRATE 25 MG TAB PO SCH ×2 (08:18→22:56)
[2018-09-21] MEDS: BUMETANIDE 12 MG in DEXTROSE 5% IN WATER 192 ML IV SCH ×2 (08:49)
--- NOTE | 2018-09-21 09:35 | P.PN ---
Subjective Patient is seen in follow-up for acute kidney injury. His baseline creatinine is 1. Patient is on IV heparin for bilateral pulmonary embolism. He also suffered 2 episodes of cardiopulmonary arrest on September 09. He is currently intubated and sedated. He also has significant lower extremity edema. He is maintained on Bumex drip and is nonoliguric. He is off Levophed. Due to volume overload and worsening renal function he was started on hemodialysis this admission. He has been tolerating hemodialysis well and had over 3-1/2 L ultrafiltration on Friday. Vital signs are stable. Off Levophed. General: The patient appeared well nourished and normally developed. HEENT: Head exam is unremarkable. Neck is without jugular venous distension. Intubated. LUNGS: Breath sounds decreased. HEART: Rate and Rhythm are regular. First and second heart sounds normal. No murmurs, rubs or gallops. ABDOMEN: Abdominal exam reveals normal bowel sounds. Non-tender and non- distended. No evidence of peritonitis. EXTREMITITES: 2+ edema. Chronic skin changes noted. Objective - Vital Signs Vital signs: Vital Signs Temp 98.4 F 09/21/18 08:00 Pulse 76 09/21/18 09:00 Resp 20 09/21/18 09:00 BP 119/65 09/16/18 14:03 Pulse Ox 95 09/21/18 09:00 Intake & Output 09/20/18 09/21/18 09/21/18 18:59 06:59 18:59 Intake Total 5813.809 7824.0 462.833 Output Total 1315 1006 310 Balance 212.386 200.0 152.833 Weight 161 kg Intake: IV 438 352.0 78 Piperacillin-Tazobactam 3 100 50.0 0 .375 gm In Dextrose/Water 1 50ml.bag @ 12.5 mls/hr IVPB Q8H GIOVANNY Rx#: [id number] Pressure bag 78 72 18 Sodium Chloride 0.9% 1, 260 230 60 000 ml @ 20 mls/hr IV . Q24H GIOVANNY Rx#:[id number] Intake, IV Titration 509.386 500 228.833 Amount Bumetanide 12 mg In 222.333 228.833 Dextrose 5% in Water 192 ml @ 0.5 MG/HR 10 mls/hr IV .Q24H GIOVANNY Rx#: [id number] Heparin Sod,Pork in 0.45% 287.053 500 NaCl 25,000 unit In 0.45 % NaCl 1 500ml.bag @ 14.9 UNITS/KG/HR 45.95 mls/hr IV .[id number] GIOVANNY Rx#: [id number] Tube Feeding 360 264 96 Other 220 90 60 Output: Urine 1315 1005 310 Stool 1 Other: Voiding Method Indwelling Catheter Indwelling Catheter # Bowel Movements 1 ABP, PAP, CO, CI - Last Documented Arterial Blood Pressure 125/60 - Labs CBC & Chem 7: 09/21/18 04:30 09/21/18 04:30 Labs: Abnormal Lab Results - Last 24 Hours (Table) 09/20/18 09/20/18 09/20/18 Range/Units 10:55 11:42 12:45 WBC (3.8-10.6) k/uL RBC (4.30-5.90) m/uL Hgb (13.0-17.5) gm/dL Hct (39.0-53.0) % RDW (11.5-15.5) % Neutrophils # (Manual) (1.3-7.7) k/uL Myelocytes # (Manual) (0) k/uL APTT 57.7 H (22.0-30.0) sec ABG pH (7.35-7.45) ABG pCO2 47 H (35-45) mmHg ABG pO2 110 H (83-108) mmHg ABG HCO3 27 H (21-25) mmol/L ABG Total CO2 28 H (19-24) mmol/L ABG O2 Saturation 97.7 H (94-97) % Potassium (3.5-5.1) mmol/L BUN (9-20) mg/dL Creatinine (0.66-1.25) mg/dL Glucose (74-99) mg/dL POC Glucose (mg/dL) 111 H (75-99) mg/dL Phosphorus (2.5-4.5) mg/dL Magnesium (1.6-2.3) mg/dL 09/20/18 09/20/18 09/21/18 Range/Units 18:05 23:33 04:30 WBC 17.3 H (3.8-10.6) k/uL RBC 2.96 L (4.30-5.90) m/uL Hgb 9.0 L (13.0-17.5) gm/dL Hct 28.0 L (39.0-53.0) % RDW 16.9 H (11.5-15.5) % Neutrophils # (Manual) 13.10 H (1.3-7.7) k/uL Myelocytes # (Manual) 1.04 H (0) k/uL APTT (22.0-30.0) sec ABG pH (7.35-7.45) ABG pCO2 (35-45) mmHg ABG pO2 (83-108) mmHg ABG HCO3 (21-25) mmol/L ABG Total CO2 (19-24) mmol/L ABG O2 Saturation (94-97) % Potassium (3.5-5.1) mmol/L BUN (9-20) mg/dL Creatinine (0.66-1.25) mg/dL Glucose (74-99) mg/dL POC Glucose (mg/dL) 109 H 104 H (75-99) mg/dL Phosphorus (2.5-4.5) mg/dL Magnesium (1.6-2.3) mg/dL 09/21/18 09/21/18 09/21/18 Range/Units 04:30 05:30 05:41 WBC (3.8-10.6) k/uL RBC (4.30-5.90) m/uL Hgb (13.0-17.5) gm/dL Hct (39.0-53.0) % RDW (11.5-15.5) % Neutrophils # (Manual) (1.3-7.7) k/uL Myelocytes # (Manual) (0) k/uL APTT (22.0-30.0) sec ABG pH 7.33 L (7.35-7.45) ABG pCO2 51 H (35-45) mmHg ABG pO2 115 H (83-108) mmHg ABG HCO3 26 H (21-25) mmol/L ABG Total CO2 28 H (19-24) mmol/L ABG O2 Saturation 98.9 H (94-97) % Potassium 3.4 L (3.5-5.1) mmol/L BUN 97 H (9-20) mg/dL Creatinine 4.82 H (0.66-1.25) mg/dL Glucose 112 H (74-99) mg/dL POC Glucose (mg/dL) 119 H (75-99) mg/dL Phosphorus 7.6 H (2.5-4.5) mg/dL Magnesium 2.8 H (1.6-2.3) mg/dL 09/21/18 Range/Units 07:35 WBC (3.8-10.6) k/uL RBC (4.30-5.90) m/uL Hgb (13.0-17.5) gm/dL Hct (39.0-53.0) % RDW (11.5-15.5) % Neutrophils # (Manual) (1.3-7.7) k/uL Myelocytes # (Manual) (0) k/uL APTT 73.0 H (22.0-30.0) sec ABG pH (7.35-7.45) ABG pCO2 (35-45) mmHg ABG pO2 (83-108) mmHg ABG HCO3 (21-25) mmol/L ABG Total CO2 (19-24) mmol/L ABG O2 Saturation (94-97) % Potassium (3.5-5.1) mmol/L BUN (9-20) mg/dL Creatinine (0.66-1.25) mg/dL Glucose (74-99) mg/dL POC Glucose (mg/dL) (75-99) mg/dL Phosphorus (2.5-4.5) mg/dL Magnesium (1.6-2.3) mg/dL Assessment and Plan Plan: Assessment: 1. Acute kidney injury secondary to ATN secondary to hypotension and hemodynamic instability. Baseline creatinine is 1. No evidence of hydronephrosis noted on renal ultrasound. Currently hemodialysis dependent. 2. Bilateral pulmonary embolism status post TPA maintained on IV heparin. 3. Right lower extremity DVT. 4. Hypotension now off Levophed. Cortisol level normal. 5. Acute hypoxic respiratory failure secondary to PE. 6. Hyperphosphatemia secondary to acute kidney injury. 7. SVT now in sinus rhythm. Cardiology following. 8. Volume overload. Improving with ultrafiltration. 9. Acute blood loss anemia with hemoglobin of 5.9 10/24 s/p pRBCs. Better. 10. Metabolic acidosis secondary to ACOSTA. Improved post-HD. 11. Hypokalemia from diuresis. Plan: Maintain bumex drip. Maintain phoslo 3 times daily. Maintain tube feeds. Avoid nephrotoxins. Continue to monitor renal function and urine output. Replace potassium. 60 mg today. Hemodialysis today and again tomorrow. Plan to wean today.
--- NOTE | 2018-09-21 10:30 | PN ---
PROGRESS NOTE Mr. Rowley is a 52-year-old male who presented with massive pulmonary embolism, requiring mechanical ventilation, had a respiratory failure and hemodynamic compromise. He is hemodynamically stable. He is more awake and alert following verbal command. He is in sinus mechanism. He continued be on IV heparin pending the decision regarding either tracheostomy or attempt to wean. His urine output has been good. He has received hemodialysis on Friday. He continued to be on amiodarone 200 mg twice a day, hydralazine 25 mg 4 times a day, and he is on Bumex drip. Blood pressure 123/58 with a heart rate in 70s. LUNGS: Clear anteriorly. HEART: Regular rate and rhythm, S1, S2. No S3. No rub appreciated. ABDOMEN: Soft, obese. Positive bowel sounds. EXTREMITIES: +1 to 2 edema. LAB DATA: BUN and creatinine 97 and 4.82. Potassium 3.4. He has lost 1 kg. IMPRESSION: 1. Massive pulmonary embolism, respiratory failure. Stabilizing at this point. 2. Metabolic encephalopathy, improving. He is following some commands, although he continues to be quite weak. 3. Renal failure with good urinary output at this time. 4. Episode of supraventricular tachyarrhythmia remains in sinus mechanism. 5. Hypertension. 6. Prior history of smoking. 7. Morbid obesity. RECOMMENDATION: From the cardiac standpoint, I will continue present therapy. I will add low-dose beta brittany to his regimen. I will await the decision regarding weaning versus tracheostomy. Will continue to follow his renal function. He will continue on his diuretics. Depending on his progress, further recommendation will be made. MMODL / IJN: [id number] /
--- NOTE | 2018-09-21 10:47 | P.PN ---
Subjective Progress Note Date: 09/21/18 Principal diagnosis: Acute hypoxic respiratory failure secondary to massive bilateral pulmonary embolism. Status post cardiopulmonary arrest and status post TPA treatment. On 09/14/2018, I am seeing this patient for a follow-up in the intensive care unit. The patient was in following a massive but the pulmonary embolism, right ventricular enlargement and right ventricular strain pattern with subsequent hemodynamic collapse and cardiac arrest. The patient is post TPA infusion at time of the code. The patient is currently on IV heparin. In terms of his breathing, the patient is intubated on a mechanical ventilator. The patient is currently on an assist-control mode at the rate of 32 with a tidal volume of 500 and FiO2 of 50% with a PEEP of 10. The chest x-ray from today shows adequate positioning of 82. There is some atelectatic changes and infiltration of the right lung base. Meanwhile, the blood gases from today showed a pH of 7.32 with a pCO2 of 48 and pO2 of 116 and this was done on the above-mentioned ventilator settings. No significant orotracheal secretions. Breath other are equal and bilateral. Airway pressures are not elevated. Hemodynamically, the patient is on pressors at 3 mics of norepinephrine infusion for blood pressure support. He has been aggressively resuscitated IV fluids and a noted significant amount of weight gain over the past several days. The patient was given a dose of Lasix yesterday. In addition the patient was having episodes of SVTs throughout his current hospitalization and he was treated with adenosine and currently is on amiodarone orally 5 mg by mouth twice a day and his cardiac rhythm is normalized and his in sinus rhythm. Echocardiogram, the patient has an ejection fraction of 6065%. The rhythm to Doxil septal motion abnormality consistent with right ventricular volume/strain pattern. Of interest also is development of acute kidney injury. The patient came in initially with a normal renal function. Subsequently creatinine came up to 1.7 and currently is up to 2.41. He was given a dose of Lasix yesterday and none since yesterday. The patient is nonoliguric. The net fluid balance over the past 24 hours is +825 mL. He is having loose liquidy bowel movement. He is currently on vital 1.2 at the rate of 35 mL an hour. He is sedated with Diprivan. Lower oximetry is a swallow with extensive swelling of the right lower extremity which also has a DVT. The patient is having on and off low- grade fever and the patient is currently on IV Ancef. Most recent hemoglobin is at 8.0. White cell count is not elevated at 7.1. He remains on IV heparin regarding the massive bilateral pulmonary embolism. Reevaluated today on 09/21/2018, patient remains off sedation for the last 2 days, minimal slow improvement in his overall mentation, patient is lethargic, arousable, follows very simple commands, like squeezing hands and wiggling toes. He seems to be profoundly weak, unable to move extremities against gravity. His ventilator settings are tidal volume of 500 assist control rate of 20 FiO2 of 40% and PEEP of 5. ABG this morning showed a pO2 of 115 pCO2 of 51 pH of 7.33. His labs were all reviewed including WBC count of 17.3 hemoglobin of 9.0. Electrolytes were noted to be relatively normal however his BUN is 97 creatinine is 4.82, patient remains on hemodialysis via a dialysis catheter in the right groin. Chest x-ray continues to show evidence of congestive heart failure possibly basilar effusions noted. Objective - Vital Signs Vital signs: Vital Signs Temp 98.4 F 09/21/18 08:00 Pulse 76 09/21/18 10:00 Resp 19 09/21/18 10:00 BP 119/65 09/16/18 14:03 Pulse Ox 96 09/21/18 10:00 Intake & Output 09/20/18 09/21/18 09/21/18 18:59 06:59 18:59 Intake Total 7102.323 0559.0 512.833 Output Total 1315 1006 490 Balance 212.386 200.0 22.833 Weight 161 kg Intake: IV 438 352.0 104 Piperacillin-Tazobactam 3 100 50.0 0 .375 gm In Dextrose/Water 1 50ml.bag @ 12.5 mls/hr IVPB Q8H [facility] Rx#: [id number] Pressure bag 78 72 24 Sodium Chloride 0.9% 1, 260 230 80 000 ml @ 20 mls/hr IV . Q24H [facility] Rx#:[id number] Intake, IV Titration 509.386 500 228.833 Amount Bumetanide 12 mg In 222.333 228.833 Dextrose 5% in Water 192 ml @ 0.5 MG/HR 10 mls/hr IV .Q24H [facility] Rx#: [id number] Heparin Sod,Pork in 0.45% 287.053 500 NaCl 25,000 unit In 0.45 % NaCl 1 500ml.bag @ 14.9 UNITS/KG/HR 45.95 mls/hr IV .[id number] [facility] Rx#: [id number] Tube Feeding 360 264 120 Other 220 90 60 Output: Urine 1315 1005 490 Stool 1 Other: Voiding Method Indwelling Catheter Indwelling Catheter # Bowel Movements 1 ABP, PAP, CO, CI - Last Documented Arterial Blood Pressure 151/70 - Exam Physical Exam: Revealed a 52-year-old white male morbidly obese, on mechanical ventilation, lethargic but arousable. Head: Atraumatic, normocephalic. Endotracheal tube and nasogastric tube are noted to be intact. Left sided central line remains intact. HEENT:[ Short obese neck Neck is supple.] [No neck masses.] [No thyromegaly.] [ No JVD.] Chest: [Course by basilar breath sounds, crackles are also noted bilaterally. Diffuse rhonchi noted. Diminished breath sounds at the bases. Symmetrical chest expansion is noted. Cardiac Exam: [Normal S1 and S2, no S3 gallop, no murmur.] Abdomen: [Soft, nontender, no megaly, no rebound, no guarding, normal bowel sounds.] Extremities: [2+ bipedal edema is noted.]. Good pulses bilaterally. Neurological Exam: PERRLA, EOMI, no nystagmus, no facial asymmetry, arousable but lethargic, no purposeful movement, positive gag reflex, presently off propofol. Grimaces to painful stimuli and opens eyes. Generally weak, cannot raise extremities against gravity. Psychiatric: Could not be assessed. Lymphatics: No lymphadenopathy. Skin: No rashes, however significant edema noted in both lower extremities. No open sores noted. - Labs CBC & Chem 7: 09/21/18 04:30 09/21/18 04:30 Labs: Abnormal Lab Results - Last 24 Hours (Table) 09/20/18 09/20/18 09/20/18 Range/Units 10:55 11:42 12:45 WBC (3.8-10.6) k/uL RBC (4.30-5.90) m/uL Hgb (13.0-17.5) gm/dL Hct (39.0-53.0) % RDW (11.5-15.5) % Neutrophils # (Manual) (1.3-7.7) k/uL Myelocytes # (Manual) (0) k/uL APTT 57.7 H (22.0-30.0) sec ABG pH (7.35-7.45) ABG pCO2 47 H (35-45) mmHg ABG pO2 110 H (83-108) mmHg ABG HCO3 27 H (21-25) mmol/L ABG Total CO2 28 H (19-24) mmol/L ABG O2 Saturation 97.7 H (94-97) % Potassium (3.5-5.1) mmol/L BUN (9-20) mg/dL Creatinine (0.66-1.25) mg/dL Glucose (74-99) mg/dL POC Glucose (mg/dL) 111 H (75-99) mg/dL Phosphorus (2.5-4.5) mg/dL Magnesium (1.6-2.3) mg/dL 09/20/18 09/20/18 09/21/18 Range/Units 18:05 23:33 04:30 WBC 17.3 H (3.8-10.6) k/uL RBC 2.96 L (4.30-5.90) m/uL Hgb 9.0 L (13.0-17.5) gm/dL Hct 28.0 L (39.0-53.0) % RDW 16.9 H (11.5-15.5) % Neutrophils # (Manual) 13.10 H (1.3-7.7) k/uL Myelocytes # (Manual) 1.04 H (0) k/uL APTT (22.0-30.0) sec ABG pH (7.35-7.45) ABG pCO2 (35-45) mmHg ABG pO2 (83-108) mmHg ABG HCO3 (21-25) mmol/L ABG Total CO2 (19-24) mmol/L ABG O2 Saturation (94-97) % Potassium (3.5-5.1) mmol/L BUN (9-20) mg/dL Creatinine (0.66-1.25) mg/dL Glucose (74-99) mg/dL POC Glucose (mg/dL) 109 H 104 H (75-99) mg/dL Phosphorus (2.5-4.5) mg/dL Magnesium (1.6-2.3) mg/dL 09/21/18 09/21/18 09/21/18 Range/Units 04:30 05:30 05:41 WBC (3.8-10.6) k/uL RBC (4.30-5.90) m/uL Hgb (13.0-17.5) gm/dL Hct (39.0-53.0) % RDW (11.5-15.5) % Neutrophils # (Manual) (1.3-7.7) k/uL Myelocytes # (Manual) (0) k/uL APTT (22.0-30.0) sec ABG pH 7.33 L (7.35-7.45) ABG pCO2 51 H (35-45) mmHg ABG pO2 115 H (83-108) mmHg ABG HCO3 26 H (21-25) mmol/L ABG Total CO2 28 H (19-24) mmol/L ABG O2 Saturation 98.9 H (94-97) % Potassium 3.4 L (3.5-5.1) mmol/L BUN 97 H (9-20) mg/dL Creatinine 4.82 H (0.66-1.25) mg/dL Glucose 112 H (74-99) mg/dL POC Glucose (mg/dL) 119 H (75-99) mg/dL Phosphorus 7.6 H (2.5-4.5) mg/dL Magnesium 2.8 H (1.6-2.3) mg/dL 09/21/18 Range/Units 07:35 WBC (3.8-10.6) k/uL RBC (4.30-5.90) m/uL Hgb (13.0-17.5) gm/dL Hct (39.0-53.0) % RDW (11.5-15.5) % Neutrophils # (Manual) (1.3-7.7) k/uL Myelocytes # (Manual) (0) k/uL APTT 73.0 H (22.0-30.0) sec ABG pH (7.35-7.45) ABG pCO2 (35-45) mmHg ABG pO2 (83-108) mmHg ABG HCO3 (21-25) mmol/L ABG Total CO2 (19-24) mmol/L ABG O2 Saturation (94-97) % Potassium (3.5-5.1) mmol/L BUN (9-20) mg/dL Creatinine (0.66-1.25) mg/dL Glucose (74-99) mg/dL POC Glucose (mg/dL) (75-99) mg/dL Phosphorus (2.5-4.5) mg/dL Magnesium (1.6-2.3) mg/dL Assessment and Plan Assessment: Impression: 1 acute hypoxic respiratory failure secondary to massive bilateral pulmonary embolism. Status post cardiopulmonary arrest, status post TPA treatment, remains on heparin. Remains on mechanical ventilation. 2 massive pulmonary embolism with right ventricular strain and subsequent cardiac arrest. No clear-cut evidence of anoxic brain injury or encephalopathy at this point. 3 acute metabolic encephalopathy, possibility of anoxic brain injury is not entirely ruled out. 4 acute kidney injury secondary to hypotension and acute tubular necrosis, remains on dialysis. 5 acute deep vein thrombosis of right lower extremity, presently on heparin. 6 chronic normocytic anemia, likely multifactorial. 7 history of smoking 8 morbid obesity with BMI of 46.5 9 possible aspiration pneumonia, as noted on the chest x-ray, 10 status post cardiopulmonary arrest secondary to massive pulmonary embolism. Recommendation: Continue mechanical ventilation, continue heparin, continue to hold sedation and assessment of status, may give the patient a trial of pressure support and CPAP/weaning trial. Continue hemodialysis continue to assess mental status closely on a daily basis. Continue nutritional support, via nasogastric tube. May have to eventually decide regarding PEG tube and tracheostomy especially in the patient does not demonstrate significant improvement and able to wean in the next couple of days. Patient remains very critically ill. And critical care time is 40 minutes. Time with Patient: Greater than 30
[2018-09-21 11:16] LABS: Glucose,Whole Blood 106 mg/dL (75-99)
[2018-09-21] MEDS: MULTIVITAMINS, THERA 1 EACH TAB PO SCH (12:21)
[2018-09-21] MEDS ORDERED: HEPARIN SODIUM,PORCINE 5,000 UNIT/ML 1 ML VIAL ONE (14:40)
[2018-09-21 18:20] LABS: Glucose,Whole Blood 109 mg/dL (75-99)
--- NOTE | 2018-09-21 21:15 | CT ---
EXAMINATION: CT brain wo con DATE AND TIME: 09/21/2018 6:17 PM CLINICAL INDICATION: altered mental status from baseline .Altered mental status. TECHNIQUE: Standard departmental protocol. COMPARISON: None. FINDINGS: The patient is intubated. The right maxillary sinus is 85% opacified, can correlate with a clinical d iagnosis of right maxillary sinusitis. Remainder the paranasal sinuses and middle ear cavities are clear. However, there is mild opacificati on of the left mastoid sinus air cells and near complete opacification of the right mastoid sinus air cells. There is no bony destruction of the mastoids. The calvarium is intact. There is no intracranial hemorrhage. There is no intracranial mass or mass e ffect. No definite new intra-axial or extra-axial attenuation defect. The orbits are unremarkable. IMPRESSION: NO DEFINITE ACUTE PROCESS.
[2018-09-21] MEDS: SODIUM CHLORIDE 0.9% 1,000 ML IV SCH (22:18)
--- NOTE | 2018-09-22 00:12 | P.PN ---
Subjective Progress Note Date: 09/21/18 Principal diagnosis: Massive pulmonary embolism Acute cardiopulmonary arrest status post CPR and intubation Patient is a 52-year-old male with a known history of chronic bilateral lower extremity lymphedema and history of pulmonary embolism about a year ago, currently not taking Coumadin for the past 6-8 months came to ER with complaints of acute worsening shortness of breath since yesterday. Patient says that he has been having shortness of breath for the last couple of weeks but suddenly got worse yesterday. Patient was told that his DVT and pulmonary embolus was secondary to sedentary lifestyle and sleeping in a sitting position. Patient states he took his Coumadin for about 6 months. He was so several follow-up appointment in November for repeat evaluation however he did not follow-up with that appointment. He stopped his Coumadin in November. Denies any constitutional symptoms. Patient feels much more short of breath with exertion. Chest pain. He feels as though both of his legs are much more edematous than usual suspicion is right lower extremity. Lower extremity duplex scan showed acute DVT right popliteal vein through the proximal calf veins CTA chest showed massive bilateral pulmonary embolism with right ventricular enlargement suggestive of right ventricular strain correlate clinically. A 7 mm and 4 mm right lower lobe pulmonary nodule not seen previous exam subpleural in location could be inflammatory. WBC 14.1 Troponin 0.258 Potassium 5.3 On 09/09/2018 Patient had a brief episode of cardiopulmonary arrest this morning and developed respiratory distress. Subsequently patient was intubated and was transferred to MICU. Patient had a difficult intubation. Patient was given TPA by ER physician. Patient also received multiple doses of epinephrine and sodium bicarbonate. Patient is currently on Levophed drip. Being continued on heparin drip as well. Patient is currently sedated. Initial ABG showed pH 7.0, pCO2 80, pO2 118 Patient was seen by cardiology and pulmonary. 09/10/2018 Patient is currently mechanically ventilated and sedated. Patient is being continued on heparin drip. Continues to be on Levothroid drip. Patient had SVT during cardiopulmonary arrest. Patient was started on amiodarone.. Otherwise hemoglobin dropped to 10.7 today. Continues to have bloody secretions which is being suctioned. Chest x-ray showed bilateral pleural effusion and consolidation. AST 559 and ALT 509 albumin 2.6. Cultures negative so far. Creatinine 1.76. 09/11/2018 52-year-old gentleman with a history of massive bilateral pulmonary embolism right ventricular enlargement and right heart strain. He did receive systemic TPA and was on IV heparin until yesterday which time was turned off because of ongoing bleeding. The patient's overall prognosis remains very guarded. The patient remains on ventilator. Arterial blood gases show a PaO2 of 113 PaCO2 38 and a pH of 7.4. The patient is on saline at 75 mL an hour; Heparin was discontinued yesterday because of ongoing bleeding from the cavity and NG tube. In addition, he's had about a 1 g hemoglobin drop on a daily basis. This morning's hemoglobin is 9.9. 09/12/2018; The patient's overall prognosis remains very guarded. The patient was given a daily interruption of sedation today but could not have a spontaneous breathing trial because he became very tachypnea with respiratory rates above 40. Currently, he is on the volume assist control mode rate of 32, tidal volume 500 , FiO2 35% to be increased to 40% and 5 of PEEP. Arterial blood gases showed a PaO2 of 59 a PaCO2 of 43 and a pH 7.37. That was on 35% FiO2. In addition, the patient's on norepinephrine at 7 mics per minute, propofol at 65 mcg/kg/m, saline IV at 75 mL an hour, heparin via weightbase protocol and vital 1.2 at goal. Chest x-ray shows bilateral effusions with basilar atelectasis and/or infiltrates. On 09/15/2018 Patient currently on mechanical ventilation with assist control and sedation. Patient is being continued on IV heparin. Hemoglobin is 7.5. Renal function slightly worsened with increasing creatinine level 3.56. No active bleeding noted. Chest x-ray showed bilateral pleural effusion and pulmonary vascular congestion. Patient was given a dose of Lasix previously. Patient is currently on antibiotics in the form of Zosyn. 09/16/2018 Patient was seen and examined in the MICU. Currently maintained on mechanical ventilator. Hemoglobin dropped to 5.9 today. 2 units of PRBC was ordered. No signs of active bleeding noted. Patient is being continued on IV heparin. Chest x-ray showed evidence of bilateral consolidation and pleural effusion. Correlate for pulmonary edema and diffuse pneumonia. Currently on Lasix drip. Creatinine level increased to 3.89 today. Otherwise patient is getting empiric antibiotics for possible pneumonia aspiration likely. Patient is being followed by pulmonary cardiology and nephrology. 09/17/2018 Patient is currently on mechanical ventilator. Chest x-ray showed possible fluid overload/pneumonia. Creatinine is trending up at 4.7 today. Hemoglobin is 7.6. Continued on IV heparin. held for permacath placement. Nephrology is planning for hemodialysis. No fever no chills. 09/20/2018 Patient is on mechanical ventilator. Patient is off sedation and is able to blink his eyes. Patient is being continued on hemodialysis. Patient had 3 hemodialysis sessions last one yesterday. Continued on IV antibiotics the form of Zosyn. Leukocytosis slightly improved to 23.7, hemoglobin 9.5 No other acute overnight issues. 09/21/2018 Patient remained on mechanical ventilator. Off sedation and also support. Patient does have slight improvement in mental status. Patient is extremely lethargic and follows simple commands. Hemoglobin is 9.0. Leukocytosis is improved to 17.3. Patient is getting hemodialysis today. Creatinine level IV.82. Chest x-ray showed evidence of congestive heart failure and pleural effusion noted. Patient is afebrile. Blood pressure is maintained. Active Medications Active Medications Generic Name Dose Route Start Last Admin Trade Name Freq PRN Reason Stop Dose Admin Albuterol/Ipratropium 3 ml 09/09/18 09:37 Duoneb 0.5 Mg-3 Mg/3 Ml Soln INHALATION RT-Q2H PRN Shortness Of Breath Or Wheezing Albuterol/Ipratropium 3 ml 09/09/18 12:00 09/20/18 23:21 Duoneb 0.5 Mg-3 Mg/3 Ml Soln INHALATION 3 ml RT-Q4H GIOVANNY Administration Amiodarone HCl 200 mg 09/20/18 21:00 09/20/18 22:29 Cordarone PO 200 mg BID GIOVANNY Administration Calcium Acetate 667 mg 09/17/18 07:30 09/20/18 17:14 Phoslo PO 667 mg TID-W/MEALS GIOVANNY Administration Chlorhexidine Gluconate 15 ml 09/09/18 21:00 09/20/18 22:29 Peridex MUCOUS MEM 15 ml BID GIOVANNY Administration Heparin Sodium (Porcine) 0 unit 09/08/18 10:49 09/09/18 04:34 Heparin IV 4,000 unit PER PROTOCOL PRN Administration Low PTT Protocol Hydralazine HCl 10 mg 09/18/18 21:19 09/20/18 04:53 Apresoline IVP 10 mg Q4HR PRN Administration Blood Pressure - High Hydralazine HCl 25 mg 09/20/18 09:30 09/20/18 22:29 Apresoline PO 25 mg QID GIOVANNY Administration Hydromorphone HCl 1 mg 09/10/18 17:33 09/20/18 18:01 Dilaudid IVP 1 mg Q1HR PRN Administration Mild to Moderate Pain Hydromorphone HCl 2 mg 09/10/18 17:33 09/20/18 21:18 Dilaudid IVP 2 mg Q1HR PRN Administration Moderate to Severe Pain Heparin Sodium/Sodium Chloride 500 mls @ 45.95 mls/hr 09/08/18 11:00 11:50 25,000 unit/ Sodium Chloride IV 16 units/kg/hr .[id number] GIOVANNY 49.35 mls/hr Administration Protocol 14.9 UNITS/KG/HR Propofol 1,000 mg/ IV Solution 100 mls @ 0 mls/hr 09/09/18 09:45 09/18/18 09: 02 IV 0 mcg/kg/min .Q0M GIOVANNY 0 mls/hr Titration Protocol Titrate Norepinephrine Bitartrate 16 250 mls @ 0 mls/hr 09/09/18 10:00 09/15/18 14:40 mg/ Sodium Chloride IV 0 mcg/min .Q0M GIOVANNY 0 mls/hr Titration Protocol Titrate Sodium Chloride 1,000 mls @ 20 mls/hr 09/10/18 12:45 09/20/18 22:31 Saline 0.9% IV 20 mls/hr .Q24H GIOVANNY Administration Acetaminophen 1,000 mg/ IV 100 mls @ 400 mls/hr 09/13/18 20:44 09/13/18 21:55 Solution IVPB 400 mls/hr ONCE PRN Administration Fever>101 Piperacillin/Tazobactam/ 50 mls @ 12.5 mls/hr 09/14/18 10:00 09/20/18 18:01 Dextrose 3.375 gm/ IV Solution IVPB 12.5 mls/hr Q8H GIOVANNY Administration Bumetanide 12 mg/ Dextrose/ 240 mls @ 10 mls/hr 09/18/18 10:30 09/20/18 09:56 Water IV 0.5 mg/hr .Q24H GIOVANNY 10 mls/hr Administration 0.5 MG/HR Insulin Aspart 0 unit 09/10/18 06:00 09/20/18 18:08 Novolog SQ Not Given Q6HR [facility] Protocol Miscellaneous Information 1 each 09/10/18 16:16 Potassium Per Protocol MISCELLANE DAILY PRN Per Protocol Protocol Miscellaneous Information 1 each 09/10/18 22:11 Magnesium Per Protocol MISCELLANE DAILY PRN Per Protocol Protocol Multivitamins 1 each 09/09/18 12:00 09/20/18 11:49 Theragran PO 1 each DAILY@1200 GIOVANNY Administration Naloxone HCl 0.2 mg 09/08/18 15:00 Narcan IV Q2M PRN Opioid Reversal Pantoprazole Sodium 40 mg 09/10/18 09:00 09/20/18 08:25 Protonix IVP 40 mg DAILY GIOVANNY Administration Objective - Vital Signs Vital signs: Vital Signs Temp 98.3 F 09/21/18 16:00 Pulse 90 09/21/18 16:18 Resp 20 09/21/18 16:00 BP 119/65 09/16/18 14:03 Pulse Ox 95 09/21/18 16:00 Intake & Output 09/20/18 09/21/18 09/21/18 18:59 06:59 18:59 Intake Total 2290.145 4374.0 1475.126 Output Total 1315 1006 5110 Balance 212.386 200.0 -3634.874 Weight 161 kg 161 kg Intake: IV 438 352.0 260 Piperacillin-Tazobactam 3 100 50.0 0 .375 gm In Dextrose/Water 1 50ml.bag @ 12.5 mls/hr IVPB Q8H GIOVANNY Rx#: [id number] Pressure bag 78 72 60 Sodium Chloride 0.9% 1, 260 230 200 000 ml @ 20 mls/hr IV . Q24H GIOVANNY Rx#:[id number] Intake, IV Titration 509.386 500 700.126 Amount Bumetanide 12 mg In 222.333 228.833 Dextrose 5% in Water 192 ml @ 0.5 MG/HR 10 mls/hr IV .Q24H GIOVANNY Rx#: [id number] Heparin Sod,Pork in 0.45% 287.053 500 471.293 NaCl 25,000 unit In 0.45 % NaCl 1 500ml.bag @ 14.9 UNITS/KG/HR 45.95 mls/hr IV .[id number] [facility] Rx#: [id number] Tube Feeding 360 264 365 Other 220 90 150 Output: Urine 1315 1005 1110 Stool 1 Other 4000 Other: Voiding Method Indwelling Catheter Indwelling Catheter Indwelling Catheter # Bowel Movements 1 ABP, PAP, CO, CI - Last Documented Arterial Blood Pressure 146/67 - Exam PHYSICAL EXAMINATION: Patient is lying in the bed comfortably, currently intubated HEENT: Normocephalic. Neck is supple. Pupils reactive. Nostrils clear. Oral cavity is moist. Ears reveal no drainage. Neck reveals no JVD, carotid bruits, or thyromegaly. CHEST EXAMINATION: Trachea is central. Symmetrical expansion. Bibasilar diminished air entry and crackles present. CARDIAC: Normal S1, S2 with no gallops. No murmurs ABDOMEN: Soft. Bowel sounds normal. No organomegaly. No abdominal bruits. Extremities: Bilateral lower extremity lymphedema with 3+ edema. No clubbing or cyanosis Neurologically . Patient is awake. Extremity week. Currently intubated. Skin: No rash or skin lesions except above. Psychiatric: Could not be assessed at this time. - Labs CBC & Chem 7: 09/21/18 04:30 09/21/18 04:30 Labs: Abnormal Lab Results - Last 24 Hours (Table) 09/20/18 09/20/18 09/21/18 Range/Units 18:05 23:33 04:30 WBC 17.3 H (3.8-10.6) k/uL RBC 2.96 L (4.30-5.90) m/uL Hgb 9.0 L (13.0-17.5) gm/dL Hct 28.0 L (39.0-53.0) % RDW 16.9 H (11.5-15.5) % Neutrophils # (Manual) 13.10 H (1.3-7.7) k/uL Myelocytes # (Manual) 1.04 H (0) k/uL APTT (22.0-30.0) sec ABG pH (7.35-7.45) ABG pCO2 (35-45) mmHg ABG pO2 (83-108) mmHg ABG HCO3 (21-25) mmol/L ABG Total CO2 (19-24) mmol/L ABG O2 Saturation (94-97) % Potassium (3.5-5.1) mmol/L BUN (9-20) mg/dL Creatinine (0.66-1.25) mg/dL Glucose (74-99) mg/dL POC Glucose (mg/dL) 109 H 104 H (75-99) mg/dL Phosphorus (2.5-4.5) mg/dL Magnesium (1.6-2.3) mg/dL 09/21/18 09/21/18 09/21/18 Range/Units 04:30 05:30 05:41 WBC (3.8-10.6) k/uL RBC (4.30-5.90) m/uL Hgb (13.0-17.5) gm/dL Hct (39.0-53.0) % RDW (11.5-15.5) % Neutrophils # (Manual) (1.3-7.7) k/uL Myelocytes # (Manual) (0) k/uL APTT (22.0-30.0) sec ABG pH 7.33 L (7.35-7.45) ABG pCO2 51 H (35-45) mmHg ABG pO2 115 H (83-108) mmHg ABG HCO3 26 H (21-25) mmol/L ABG Total CO2 28 H (19-24) mmol/L ABG O2 Saturation 98.9 H (94-97) % Potassium 3.4 L (3.5-5.1) mmol/L BUN 97 H (9-20) mg/dL Creatinine 4.82 H (0.66-1.25) mg/dL Glucose 112 H (74-99) mg/dL POC Glucose (mg/dL) 119 H (75-99) mg/dL Phosphorus 7.6 H (2.5-4.5) mg/dL Magnesium 2.8 H (1.6-2.3) mg/dL 09/21/18 09/21/18 Range/Units 07:35 11:14 WBC (3.8-10.6) k/uL RBC (4.30-5.90) m/uL Hgb (13.0-17.5) gm/dL Hct (39.0-53.0) % RDW (11.5-15.5) % Neutrophils # (Manual) (1.3-7.7) k/uL Myelocytes # (Manual) (0) k/uL APTT 73.0 H (22.0-30.0) sec ABG pH (7.35-7.45) ABG pCO2 (35-45) mmHg ABG pO2 (83-108) mmHg ABG HCO3 (21-25) mmol/L ABG Total CO2 (19-24) mmol/L ABG O2 Saturation (94-97) % Potassium (3.5-5.1) mmol/L BUN (9-20) mg/dL Creatinine (0.66-1.25) mg/dL Glucose (74-99) mg/dL POC Glucose (mg/dL) 106 H (75-99) mg/dL Phosphorus (2.5-4.5) mg/dL Magnesium (1.6-2.3) mg/dL Assessment and Plan Assessment: Acute cardiopulmonary arrest likely due to pulmonary embolism. Status post CPR and spontaneous return of circulation. Currently on mechanical ventilator. Acute hypercapnic respiratory failure. Currently on mechanical ventilator Massive pulmonary embolism with right ventricular strain. Patient was given TPA during CPR Acute hypotension . Was on on pressor support. 2-D echocardiogram showed normal LV function Pulmonary edema Possible right lower lobe pneumonia Nonoliguric acute kidney injury due to ATN. Started on hemodialysis during this admission. Acute on chronic anemia. Possible acute blood loss anemia Elevated troponin level secondary to right ventricular strain Acute lower extremity DVT Family history of pulmonary embolism in his brother Mild hyperkalemia 5.3 Recent history of pulmonary embolism about a year ago. Stopped taking Coumadin since November 2017 Previous history of smoking Bilateral lower extremity chronic lymphedema Morbid obesity with BMI 43.7 Seborrheic dermatitis history Anxiety Plan: Patient will be continued on IV heparin and monitor closely in the MICU. Patient was given TPA. Patient is off pressor support. Cardiology and pulmonary is following. Continue with mechanical ventilation. Monitor H&H. 2 units of PRBC transfusion was done on 09/16/2018. Monitor renal function and also monitor for any GI bleed. Hemodialysis as per schedule.. Prognosis is poor. Further recommendations based on the clinical course. Time with Patient: Greater than 30
[2018-09-22 00:24] LABS: Glucose,Whole Blood 116 mg/dL (75-99)
[2018-09-22] MEDS: INSULIN ASPART 100 UNIT/ML 1 ML 10 ML VIAL SQ SCH ×4 (00:29→18:16)
[2018-09-22] MEDS: HYDROmorphone 1 MG/ML 1 ML SYRINGE IVP PRN ×8 (01:04→20:22)
[2018-09-22] MEDS: PIPERACILLIN-TAZOBACTAM 3.375 GM in DEXTROSE/WATER 1 50ML.BAG IVPB SCH ×3 (02:50→18:37)
[2018-09-22] MEDS: IPRATROPIUM-ALBUTEROL 3 ML NEB INHALATION SCH ×6 (03:24→22:59)
[2018-09-22 05:56] LABS: Anisocytosis Slight; Basophils # (A) 0.2 k/uL (0-0.2); Basophils % (A) 1 %; Eosinophils # (A) 0.4 k/uL (0-0.7); Eosinophils % (A) 2 %; HCT 27.7 % (39.0-53.0); HGB 8.8 gm/dL (13.0-17.5); Hypochromasia Slight; Lymphocytes # (A) 1.5 k/uL (1.0-4.8); Lymphocytes % (A) 10 %; MCH 30.3 pg (25.0-35.0); MCHC 31.9 g/dL (31.0-37.0); MCV 94.9 fL (80.0-100.0); Mean Platelet Volume 7.5; Monocytes # (A) 0.5 k/uL (0-1.0); Monocytes % (A) 3 %; Neutrophils # (A) 12.9 k/uL (1.3-7.7); Neutrophils % (A) 82 %; Platelet Count 330 k/uL (150-450); RBC 2.92 m/uL (4.30-5.90); RDW 17.4 % (11.5-15.5); WBC 15.8 k/uL (3.8-10.6)
[2018-09-22 07:04] LABS: Calcium 9.2 mg/dL (8.4-10.2); Magnesium 2.8 mg/dL (1.6-2.3); Potassium 3.7 mmol/L (3.5-5.1)
--- NOTE | 2018-09-22 07:52 | XR ---
EXAMINATION TYPE: XR chest 1V portable DATE OF EXAM: 09/22/2018 COMPARISON: Prior chest x-ray 09/21/2018 HISTORY: Intubated TECHNIQUE: Single frontal view of the chest is obtained. FINDINGS: Endotracheal tube and NG tube are overlying appropriate position, left jugular central anuel ous catheter remains in place, distal tip overlying the right atrium. No evident pneumothorax. Lung v olumes are low and the patient is rotated. Heart and mediastinum show stable widening. Prominence of the central vascularity is present, bibasilar density obscures the hemidiaphragms. Perihilar airspace disease noted. IMPRESSION: Correlate for possible congestive heart failure with pleural effusions, pneumonia not ex cluded. Follow-up recommended. Expiratory rotated exam.
[2018-09-22 07:55] LABS: ABG Base Excess 2.8 mmol/L; ABG HCO3 28 mmol/L (21-25); ABG Oxygen Saturation 97.8 % (94-97); ABG PCO2 49 mmHg (35-45); ABG PH 7.36 (7.35-7.45); ABG PO2 99 mmHg (83-108); ABG TCO2 30 mmol/L (19-24)
--- NOTE | 2018-09-22 08:37 | PN ---
PROGRESS NOTE Mr. Rowley is a is 52-year-old male who presented with respiratory failure and evidence of massive bilateral pulmonary embolism. He has been intubated. He remains intubated, but he is opening his eyes to verbal stimuli. He is quite weak. Hemodynamically, he is in sinus mechanism without any evidence of ventricular ectopic activity. His blood pressure is elevated when he is agitated. He has been receiving hemodialysis. He appears to be too weak for possible weaning and may require a tracheostomy until he gets stronger. He continues to be at this time on amiodarone 200 mg twice a day, IV Bumex drip, hydralazine 25 mg 4 times a day, metoprolol tartrate 25 mg twice a day, and IV heparin. PHYSICAL EXAMINATION: Blood pressure 123/57 with a heart rate in the 80s. LUNGS: Clear anteriorly. HEART: Regular rate and rhythm. S1, S2. No S3. No rub appreciated. ABDOMEN: Soft, obese. Positive bowel sounds. EXTREMITIES: +1 to 2 edema. LAB DATA: Revealed hemoglobin of 8.8, white blood cell of 15.8, BUN and creatinine 88 and 4.68. IMPRESSION: 1. Respiratory failure related to massive bilateral pulmonary embolism. 2. Acute kidney injury on hemodialysis. 3. Generalized weakness with possible element of metabolic encephalopathy. 4. Morbid obesity. 5. Prior episode of supraventricular tachycardia. RECOMMENDATION: From the cardiac standpoint, I will continue present therapy. Will await the decision regarding tracheostomy. Cardiac-weber, he is stable. Will see him on as-needed basis. Please feel free to call us for any question. MMODL / IJN: [id number] /
[2018-09-22] MEDS: CHLORHEXIDINE GLUCONATE 15 ML CUP MUCOUS MEM SCH ×2 (09:19→21:02)
[2018-09-22] MEDS: PANTOPRAZOLE 40 MG/10 ML VIAL IVP SCH (09:19)
[2018-09-22] MEDS: hydrALAZINE HCL 25 MG TAB PO SCH ×4 (09:20→22:24)
[2018-09-22] MEDS: METOPROLOL TARTRATE 25 MG TAB PO SCH ×2 (09:20→21:02)
[2018-09-22] MEDS: CALCIUM ACETATE 667 MG CAP PO SCH ×3 (09:20→17:39)
[2018-09-22] MEDS: AMIODARONE 200 MG TAB PO SCH ×2 (09:20→21:02)
[2018-09-22] MEDS ORDERED: POTASSIUM BICARBONATE/CIT AC 20 MEQ TABLET.EFF PO ONE (10:28)
--- NOTE | 2018-09-22 10:33 | P.PN ---
Subjective Patient is seen in follow-up for acute kidney injury. His baseline creatinine is 1. Patient is on IV heparin for bilateral pulmonary embolism. He also suffered 2 episodes of cardiopulmonary arrest on September 09. He is currently intubated and sedated. He also has significant lower extremity edema. He is maintained on Bumex drip and is nonoliguric. He is off Levophed. Due to volume overload and worsening renal function he was started on hemodialysis this admission. He has been tolerating hemodialysis well with ultrafiltration of over 3 L. Vital signs are stable. Off Levophed. General: The patient appeared well nourished and normally developed. HEENT: Head exam is unremarkable. Neck is without jugular venous distension. Intubated. LUNGS: Breath sounds decreased. HEART: Rate and Rhythm are regular. First and second heart sounds normal. No murmurs, rubs or gallops. ABDOMEN: Abdominal exam reveals normal bowel sounds. Non-tender and non- distended. No evidence of peritonitis. EXTREMITITES: 2+ edema. Chronic skin changes noted. Objective - Vital Signs Vital signs: Vital Signs Temp 98.7 F 09/22/18 08:00 Pulse 105 H 09/22/18 09:00 Resp 20 09/22/18 09:00 BP 119/65 09/16/18 14:03 Pulse Ox 97 09/22/18 09:00 Intake & Output 09/21/18 09/22/18 09/22/18 18:59 06:59 18:59 Intake Total 1164.242 4419 653.47 Output Total 5285 1311 315 Balance -3637.874 81 338.47 Weight 161 kg Intake: IV 362 312 78 Piperacillin-Tazobactam 3 50 .375 gm In Dextrose/Water 1 50ml.bag @ 12.5 mls/hr IVPB Q8H GIOVANNY Rx#: [id number] Pressure bag 72 72 18 Sodium Chloride 0.9% 1, 240 240 60 000 ml @ 20 mls/hr IV . Q24H GIOVANNY Rx#:[id number] Intake, IV Titration 700.126 500 470.47 Amount Bumetanide 12 mg In 228.833 Dextrose 5% in Water 192 ml @ 0.5 MG/HR 10 mls/hr IV .Q24H GIOVANNY Rx#: [id number] Heparin Sod,Pork in 0.45% 471.293 500 470.47 NaCl 25,000 unit In 0.45 % NaCl 1 500ml.bag @ 14.9 UNITS/KG/HR 45.95 mls/hr IV .[id number] [facility] Rx#: [id number] Tube Feeding 435 490 105 Other 150 90 Output: Urine 1285 1310 315 Stool 1 Other 4000 Other: Voiding Method Indwelling Catheter Indwelling Catheter Indwelling Catheter # Voids 1 ABP, PAP, CO, CI - Last Documented Arterial Blood Pressure 192/77 - Labs CBC & Chem 7: 09/22/18 05:20 09/22/18 05:20 Labs: Abnormal Lab Results - Last 24 Hours (Table) 09/21/18 09/21/18 09/22/18 Range/Units 11:14 18:19 00:22 WBC (3.8-10.6) k/uL RBC (4.30-5.90) m/uL Hgb (13.0-17.5) gm/dL Hct (39.0-53.0) % RDW (11.5-15.5) % Neutrophils # (1.3-7.7) k/uL APTT (22.0-30.0) sec ABG pCO2 (35-45) mmHg ABG HCO3 (21-25) mmol/L ABG Total CO2 (19-24) mmol/L ABG O2 Saturation (94-97) % BUN (9-20) mg/dL Creatinine (0.66-1.25) mg/dL Glucose (74-99) mg/dL POC Glucose (mg/dL) 106 H 109 H 116 H (75-99) mg/dL Phosphorus (2.5-4.5) mg/dL Magnesium (1.6-2.3) mg/dL 09/22/18 09/22/18 09/22/18 Range/Units 05:20 05:20 05:20 WBC 15.8 H (3.8-10.6) k/uL RBC 2.92 L (4.30-5.90) m/uL Hgb 8.8 L (13.0-17.5) gm/dL Hct 27.7 L (39.0-53.0) % RDW 17.4 H (11.5-15.5) % Neutrophils # 12.9 H (1.3-7.7) k/uL APTT 91.9 H (22.0-30.0) sec ABG pCO2 (35-45) mmHg ABG HCO3 (21-25) mmol/L ABG Total CO2 (19-24) mmol/L ABG O2 Saturation (94-97) % BUN 88 H (9-20) mg/dL Creatinine 4.68 H (0.66-1.25) mg/dL Glucose 117 H (74-99) mg/dL POC Glucose (mg/dL) (75-99) mg/dL Phosphorus 7.0 H (2.5-4.5) mg/dL Magnesium 2.8 H (1.6-2.3) mg/dL 09/22/18 Range/Units 07:53 WBC (3.8-10.6) k/uL RBC (4.30-5.90) m/uL Hgb (13.0-17.5) gm/dL Hct (39.0-53.0) % RDW (11.5-15.5) % Neutrophils # (1.3-7.7) k/uL APTT (22.0-30.0) sec ABG pCO2 49 H (35-45) mmHg ABG HCO3 28 H (21-25) mmol/L ABG Total CO2 30 H (19-24) mmol/L ABG O2 Saturation 97.8 H (94-97) % BUN (9-20) mg/dL Creatinine (0.66-1.25) mg/dL Glucose (74-99) mg/dL POC Glucose (mg/dL) (75-99) mg/dL Phosphorus (2.5-4.5) mg/dL Magnesium (1.6-2.3) mg/dL Assessment and Plan Plan: Assessment: 1. Acute kidney injury secondary to ATN secondary to hypotension and hemodynamic instability. Baseline creatinine is 1. No evidence of hydronephrosis noted on renal ultrasound. Currently hemodialysis dependent. 2. Bilateral pulmonary embolism status post TPA maintained on IV heparin. 3. Right lower extremity DVT. 4. Hypotension now off Levophed. Cortisol level normal. 5. Acute hypoxic respiratory failure secondary to PE. 6. Hyperphosphatemia secondary to acute kidney injury. 7. SVT now in sinus rhythm. Cardiology following. 8. Volume overload. Improving with ultrafiltration. 9. Acute blood loss anemia with hemoglobin of 5.9 09/16 s/p pRBCs. Better. 10. Metabolic acidosis secondary to ACOSTA. Improved post-HD. 11. Hypokalemia from diuresis. Being replaced. Plan: Maintain bumex drip. Maintain phoslo 3 times daily. Maintain tube feeds. Avoid nephrotoxins. Continue to monitor renal function and urine output. Continue with daily dialysis. Patient became quite hypertensive during weaning trial yesterday. Consideration for tracheostomy.
[2018-09-22] MEDS: MULTIVITAMINS, THERA 1 EACH TAB PO SCH (11:25)
--- NOTE | 2018-09-22 11:28 | P.PN ---
Subjective Progress Note Date: 09/22/18 Principal diagnosis: Acute hypoxic respiratory failure secondary to massive bilateral pulmonary embolism. Status post cardiopulmonary arrest and status post TPA treatment. On 09/14/2018, I am seeing this patient for a follow-up in the intensive care unit. The patient was in following a massive but the pulmonary embolism, right ventricular enlargement and right ventricular strain pattern with subsequent hemodynamic collapse and cardiac arrest. The patient is post TPA infusion at time of the code. The patient is currently on IV heparin. In terms of his breathing, the patient is intubated on a mechanical ventilator. The patient is currently on an assist-control mode at the rate of 32 with a tidal volume of 500 and FiO2 of 50% with a PEEP of 10. The chest x-ray from today shows adequate positioning of 82. There is some atelectatic changes and infiltration of the right lung base. Meanwhile, the blood gases from today showed a pH of 7.32 with a pCO2 of 48 and pO2 of 116 and this was done on the above-mentioned ventilator settings. No significant orotracheal secretions. Breath other are equal and bilateral. Airway pressures are not elevated. Hemodynamically, the patient is on pressors at 3 mics of norepinephrine infusion for blood pressure support. He has been aggressively resuscitated IV fluids and a noted significant amount of weight gain over the past several days. The patient was given a dose of Lasix yesterday. In addition the patient was having episodes of SVTs throughout his current hospitalization and he was treated with adenosine and currently is on amiodarone orally 5 mg by mouth twice a day and his cardiac rhythm is normalized and his in sinus rhythm. Echocardiogram, the patient has an ejection fraction of 6065%. The rhythm to Doxil septal motion abnormality consistent with right ventricular volume/strain pattern. Of interest also is development of acute kidney injury. The patient came in initially with a normal renal function. Subsequently creatinine came up to 1.7 and currently is up to 2.41. He was given a dose of Lasix yesterday and none since yesterday. The patient is nonoliguric. The net fluid balance over the past 24 hours is +825 mL. He is having loose liquidy bowel movement. He is currently on vital 1.2 at the rate of 35 mL an hour. He is sedated with Diprivan. Lower oximetry is a swallow with extensive swelling of the right lower extremity which also has a DVT. The patient is having on and off low- grade fever and the patient is currently on IV Ancef. Most recent hemoglobin is at 8.0. White cell count is not elevated at 7.1. He remains on IV heparin regarding the massive bilateral pulmonary embolism. Reevaluated today on 09/21/2018, patient remains off sedation for the last 2 days, minimal slow improvement in his overall mentation, patient is lethargic, arousable, follows very simple commands, like squeezing hands and wiggling toes. He seems to be profoundly weak, unable to move extremities against gravity. His ventilator settings are tidal volume of 500 assist control rate of 20 FiO2 of 40% and PEEP of 5. ABG this morning showed a pO2 of 115 pCO2 of 51 pH of 7.33. His labs were all reviewed including WBC count of 17.3 hemoglobin of 9.0. Electrolytes were noted to be relatively normal however his BUN is 97 creatinine is 4.82, patient remains on hemodialysis via a dialysis catheter in the right groin. Chest x-ray continues to show evidence of congestive heart failure possibly basilar effusions noted. Patient was reevaluated today on 09/22/2018, remains on mechanical ventilation, remained generally weak, follows very simple instructions but extremely weak, patient does not have a good gag reflex, cannot maintain a good eye contact, cannot raise his arms or legs against gravity, and he is profoundly weak. His ventilator settings are tidal volume of 500 assist control rate of 20 FiO2 of 40 % and PEEP of 5. Chest x-ray is showing now some component of interstitial edema. Pneumonia is not entirely ruled out. ABG this morning showed a pO2 of 99 pCO2 of 49 pH of 7.46. Renal functioning remains poor, BUN is 88 creatinine 4.68. WBC count is 15.8 hemoglobin is 8.8. Apparently the patient sustained acute kidney injury secondary to ATN from hypotension. Remains hemodialysis dependent. Patient remains on IV heparin and he was initially given TPA. Presently in sinus rhythm. And clearly the chest x-ray is consistent with mild pulmonary edema. Objective - Vital Signs Vital signs: Vital Signs Temp 98.7 F 09/22/18 08:00 Pulse 86 09/22/18 10:57 Resp 20 09/22/18 09:00 BP 119/65 09/16/18 14:03 Pulse Ox 97 09/22/18 09:00 Intake & Output 09/21/18 09/22/18 09/22/18 18:59 06:59 18:59 Intake Total 5435.771 7092 653.47 Output Total 5285 1311 315 Balance -3637.874 81 338.47 Weight 161 kg 155.3 kg Intake: IV 362 312 78 Piperacillin-Tazobactam 3 50 .375 gm In Dextrose/Water 1 50ml.bag @ 12.5 mls/hr IVPB Q8H [facility] Rx#: [id number] Pressure bag 72 72 18 Sodium Chloride 0.9% 1, 240 240 60 000 ml @ 20 mls/hr IV . Q24H [facility] Rx#:[id number] Intake, IV Titration 700.126 500 470.47 Amount Bumetanide 12 mg In 228.833 Dextrose 5% in Water 192 ml @ 0.5 MG/HR 10 mls/hr IV .Q24H [facility] Rx#: [id number] Heparin Sod,Pork in 0.45% 471.293 500 470.47 NaCl 25,000 unit In 0.45 % NaCl 1 500ml.bag @ 14.9 UNITS/KG/HR 45.95 mls/hr IV .[id number] [facility] Rx#: [id number] Tube Feeding 435 490 105 Other 150 90 Output: Urine 1285 1310 315 Stool 1 Other 4000 Other: Voiding Method Indwelling Catheter Indwelling Catheter Indwelling Catheter # Voids 1 ABP, PAP, CO, CI - Last Documented Arterial Blood Pressure 192/77 - Exam Physical Exam: Revealed a 52-year-old white male morbidly obese, on mechanical ventilation, opens eyes, follows very simple instructions. Head: Atraumatic, normocephalic. Endotracheal tube and nasogastric tube are noted to be intact. PERRLA, EOMI, no icterus. HEENT:[ Short obese neck Neck is supple.] [No neck masses.] [No thyromegaly.] [ No JVD.] Chest: [Course by basilar breath sounds, crackles are also noted bilaterally. Diffuse rhonchi noted. Cardiac Exam: [Normal S1 and S2, no S3 gallop, no murmur.] Abdomen: [Soft, nontender, no megaly, no rebound, no guarding, normal bowel sounds.] Extremities: [2+ bipedal edema is noted.]. Good pulses bilaterally. Neurological Exam: PERRLA, EOMI, no nystagmus, no facial asymmetry, arousable but lethargic, no purposeful movement, no gag reflex noted today. Psychiatric: Could not be assessed. Lymphatics: No lymphadenopathy. Skin: No rashes, however significant edema noted in both lower extremities. Remains. - Labs CBC & Chem 7: 09/22/18 05:20 09/22/18 05:20 Labs: Abnormal Lab Results - Last 24 Hours (Table) 09/21/18 09/22/18 09/22/18 Range/Units 18:19 00:22 05:20 WBC 15.8 H (3.8-10.6) k/uL RBC 2.92 L (4.30-5.90) m/uL Hgb 8.8 L (13.0-17.5) gm/dL Hct 27.7 L (39.0-53.0) % RDW 17.4 H (11.5-15.5) % Neutrophils # 12.9 H (1.3-7.7) k/uL APTT (22.0-30.0) sec ABG pCO2 (35-45) mmHg ABG HCO3 (21-25) mmol/L ABG Total CO2 (19-24) mmol/L ABG O2 Saturation (94-97) % BUN (9-20) mg/dL Creatinine (0.66-1.25) mg/dL Glucose (74-99) mg/dL POC Glucose (mg/dL) 109 H 116 H (75-99) mg/dL Phosphorus (2.5-4.5) mg/dL Magnesium (1.6-2.3) mg/dL 09/22/18 09/22/18 09/22/18 Range/Units 05:20 05:20 07:53 WBC (3.8-10.6) k/uL RBC (4.30-5.90) m/uL Hgb (13.0-17.5) gm/dL Hct (39.0-53.0) % RDW (11.5-15.5) % Neutrophils # (1.3-7.7) k/uL APTT 91.9 H (22.0-30.0) sec ABG pCO2 49 H (35-45) mmHg ABG HCO3 28 H (21-25) mmol/L ABG Total CO2 30 H (19-24) mmol/L ABG O2 Saturation 97.8 H (94-97) % BUN 88 H (9-20) mg/dL Creatinine 4.68 H (0.66-1.25) mg/dL Glucose 117 H (74-99) mg/dL POC Glucose (mg/dL) (75-99) mg/dL Phosphorus 7.0 H (2.5-4.5) mg/dL Magnesium 2.8 H (1.6-2.3) mg/dL Assessment and Plan Assessment: Impression: 1 acute hypoxic respiratory failure secondary to massive bilateral pulmonary embolism. Status post cardiopulmonary arrest, status post TPA treatment, remains on heparin. Remains on mechanical ventilation. 2 massive pulmonary embolism with right ventricular strain and subsequent cardiac arrest. No clear-cut evidence of anoxic brain injury or encephalopathy at this point. 3 acute metabolic encephalopathy, possibility of anoxic brain injury is not entirely ruled out. 4 acute kidney injury secondary to hypotension and acute tubular necrosis, remains on dialysis. 5 acute deep vein thrombosis of right lower extremity, presently on heparin. 6 chronic normocytic anemia, likely multifactorial. 7 history of smoking 8 morbid obesity with BMI of 46.5 9 possible aspiration pneumonia, as noted on the chest x-ray, I believe the findings on the chest x-ray are likely findings of pulmonary edema. Aspiration pneumonia could also be a possibility but very unlikely. 10 status post cardiopulmonary arrest secondary to massive pulmonary embolism. Discussed his condition with his sister at bedside, and strongly recommended tracheostomy and PEG tube placement. She had many questions regarding the tracheostomy and the PEG tube, all her questions were answered to her satisfaction. She is going to discuss his condition with his daughter and they were both likely agree and sign consent for tracheostomy and PEG tube placement. Recommendation: Continue mechanical ventilation, continue heparin, continue to hold sedation and assessment of status, may give the patient a trial of pressure support and CPAP/weaning trial. Continue hemodialysis continue to assess mental status closely on a daily basis. Continue nutritional support, via nasogastric tube. Discussed the patient's condition with Dr. Lawler, and he will arrange for tracheostomy and PEG tube placement tomorrow if family is agreeable as noted above. Critical care time is 45 minutes Time with Patient: Greater than 30
[2018-09-22] MEDS: HEPARIN SOD,PORK IN 0.45% NACL 25,000 UNIT in 0.45% NACL 1 500ML.BAG IV SCH (11:31)
[2018-09-22 11:51] LABS: Glucose,Whole Blood 109 mg/dL (75-99)
[2018-09-22 18:10] LABS: Glucose,Whole Blood 118 mg/dL (75-99)
[2018-09-22] MEDS: BUMETANIDE 12 MG in DEXTROSE 5% IN WATER 192 ML IV SCH ×2 (19:08)
[2018-09-22] MEDS: SODIUM CHLORIDE 0.9% 1,000 ML IV SCH (21:03)
[2018-09-23] MEDS: INSULIN ASPART 100 UNIT/ML 1 ML 10 ML VIAL SQ SCH ×4 (00:51→18:35)
[2018-09-23] MEDS: HYDROmorphone 1 MG/ML 1 ML SYRINGE IVP PRN ×5 (00:51→22:17)
[2018-09-23 00:56] LABS: Glucose,Whole Blood 100 mg/dL (75-99)
[2018-09-23] MEDS: PIPERACILLIN-TAZOBACTAM 3.375 GM in DEXTROSE/WATER 1 50ML.BAG IVPB SCH ×2 (02:40→10:18)
[2018-09-23] MEDS: IPRATROPIUM-ALBUTEROL 3 ML NEB INHALATION SCH ×6 (03:05→23:07)
[2018-09-23 05:17] LABS: Anisocytosis Slight; Basophils # (A) 0.1 k/uL (0-0.2); Basophils % (A) 1 %; Eosinophils # (A) 0.4 k/uL (0-0.7); Eosinophils % (A) 3 %; HCT 28.2 % (39.0-53.0); HGB 8.9 gm/dL (13.0-17.5); Hypochromasia Slight; Lymphocytes # (A) 1.4 k/uL (1.0-4.8); Lymphocytes % (A) 12 %; MCH 29.8 pg (25.0-35.0); MCHC 31.8 g/dL (31.0-37.0); MCV 93.8 fL (80.0-100.0); Mean Platelet Volume 7.7; Monocytes # (A) 0.4 k/uL (0-1.0); Monocytes % (A) 3 %; Neutrophils # (A) 9.3 k/uL (1.3-7.7); Neutrophils % (A) 79 %; Platelet Count 199 k/uL (150-450); RDW 16.6 % (11.5-15.5); WBC 11.7 k/uL (3.8-10.6)
[2018-09-23 06:32] LABS: Calcium 8.7 mg/dL (8.4-10.2); Magnesium 2.4 mg/dL (1.6-2.3); Phosphorus 6.5 mg/dL (2.5-4.5); Potassium 3.9 mmol/L (3.5-5.1)
[2018-09-23 07:47] LABS: ABG Base Excess 0.8 mmol/L; ABG HCO3 27 mmol/L (21-25); ABG Oxygen Saturation 97.3 % (94-97); ABG PCO2 54 mmHg (35-45); ABG PH 7.31 (7.35-7.45); ABG PO2 103 mmHg (83-108); ABG TCO2 29 mmol/L (19-24)
[2018-09-23] MEDS ORDERED: POTASSIUM BICARBONATE/CIT AC 20 MEQ TABLET.EFF NG-TUBE SCH (08:00)
[2018-09-23] MEDS: CALCIUM ACETATE 667 MG CAP PO SCH ×3 (08:18→18:07)
--- NOTE | 2018-09-23 08:53 | PN ---
PROGRESS NOTE Mr. Rowley is a 52-year-old male who presented with massive bilateral pulmonary embolism and respiratory failure. He has been intubated. He remains intubated, but he is more awake, squeezing both hands. He is in sinus mechanism. Hemodynamically, he is stable. His blood pressure is up when he is agitated. The plan is to undergo tracheostomy and PEG tube placement today. He continued be on IV heparin at this time. Hemodynamically, he has been stable otherwise. His urine output has been good. He underwent dialysis yesterday. He continues on amiodarone 200 mg twice a day, Bumex drip with good urinary output. He is on the IV heparin pending the PEG tube placement, hydralazine 25 mg 4 times a day, metoprolol tartrate 25 mg twice a day. PHYSICAL EXAMINATION: Blood pressure running in the 120s to 160s with a heart rate in 90s. LUNGS: No wheezes anteriorly. HEART: Regular rate and rhythm. S1, S2. No S3. No rub. ABDOMEN: Soft, obese. Positive bowel sounds, no organomegaly. EXTREMITIES: +1 edema, more noted on the right side. LAB DATA: Revealed BUN and creatinine 77 and 3.82, potassium of 3.9, hemoglobin of 8.9, magnesium of 2.4. IMPRESSION: 1. Status post massive bilateral pulmonary embolism, respiratory failure, anticoagulated at this point. 2. Acute kidney injury on dialysis. 3. Morbid obesity. 4. Metabolic encephalopathy. 5. Episode of hypertension. RECOMMENDATION: From the cardiac standpoint, will cut down the dose of the amiodarone to 200 mg once a day. I will adjust the dose of his hydralazine. Will continue on the IV heparin. Once the PEG tube and the trach are placed, then I believe we should be able to start oral anticoagulation in the form of Eliquis or Xarelto. MMODL / IJN: [id number] /
--- NOTE | 2018-09-23 10:08 | XR ---
EXAMINATION TYPE: XR chest 1V portable DATE OF EXAM: 09/23/2018 COMPARISON: 09/22/2018 HISTORY: Shortness of breath requiring intubation TECHNIQUE: Single frontal view of the chest is obtained. FINDINGS: Bilateral consolidation and pleural effusion noted. Heart size stable. ET tube, NG tube, a nd central line stable. Hypertrophic and degenerative change of the spine. No pneumothorax. IMPRESSION: 1. Stable bilateral pleural-parenchymal changes correlate for pneumonia versus pulmonary edema.
[2018-09-23] MEDS: HEPARIN SOD,PORK IN 0.45% NACL 25,000 UNIT in 0.45% NACL 1 500ML.BAG IV SCH ×2 (10:14→22:15)
[2018-09-23] MEDS: AMIODARONE 200 MG TAB PO SCH (10:20)
[2018-09-23] MEDS: CHLORHEXIDINE GLUCONATE 15 ML CUP MUCOUS MEM SCH ×2 (10:20→20:13)
[2018-09-23] MEDS: hydrALAZINE HCL 50 MG TAB PO SCH ×3 (10:21→22:15)
[2018-09-23] MEDS: METOPROLOL TARTRATE 25 MG TAB PO SCH ×2 (10:21→20:13)
[2018-09-23] MEDS: PANTOPRAZOLE 40 MG/10 ML VIAL IVP SCH (10:28)
[2018-09-23] MEDS: BUMETANIDE 12 MG in DEXTROSE 5% IN WATER 192 ML IV SCH ×2 (10:28)
--- NOTE | 2018-09-23 10:38 | P.PN ---
Subjective Patient is seen in follow-up for acute kidney injury. His baseline creatinine is 1. Patient is on IV heparin for bilateral pulmonary embolism. He also suffered 2 episodes of cardiopulmonary arrest on September 09. He is currently intubated and sedated. He also has significant lower extremity edema. He is maintained on Bumex drip and is nonoliguric. He is off Levophed. Due to volume overload and worsening renal function he was started on hemodialysis this admission. He has been tolerating hemodialysis well with ultrafiltration of over 3 L. Currently seen while undergoing hemodialysis. Vital signs are stable. Off Levophed. General: The patient appeared well nourished and normally developed. HEENT: Head exam is unremarkable. Neck is without jugular venous distension. Intubated. LUNGS: Breath sounds decreased. HEART: Rate and Rhythm are regular. First and second heart sounds normal. No murmurs, rubs or gallops. ABDOMEN: Abdominal exam reveals normal bowel sounds. Non-tender and non- distended. No evidence of peritonitis. EXTREMITITES: 2+ edema. Chronic skin changes noted. Objective - Vital Signs Vital signs: Vital Signs Temp 98.9 F 09/23/18 08:00 Pulse 75 09/23/18 09:00 Resp 20 09/23/18 09:00 BP 119/65 09/16/18 14:03 Pulse Ox 95 09/23/18 09:00 Intake & Output 09/22/18 09/23/18 09/23/18 18:59 06:59 18:59 Intake Total 1783.616 517 393.717 Output Total 1451 925 250 Balance 332.616 -408 143.717 Weight 155.3 kg Intake: IV 312 312 52 Pressure bag 72 72 12 Sodium Chloride 0.9% 1, 240 240 40 000 ml @ 20 mls/hr IV . Q24H [facility] Rx#:[id number] Intake, IV Titration 1051.616 0 341.717 Amount Bumetanide 12 mg In 240 153.333 Dextrose 5% in Water 192 ml @ 0.5 MG/HR 10 mls/hr IV .Q24H [facility] Rx#: [id number] Heparin Sod,Pork in 0.45% 811.616 0 188.384 NaCl 25,000 unit In 0.45 % NaCl 1 500ml.bag @ 14.9 UNITS/KG/HR 45.95 mls/hr IV .[id number] [facility] Rx#: [id number] Tube Feeding 420 175 0 Other 30 Output: Urine 1450 925 250 Stool 1 Other: Voiding Method Indwelling Catheter Indwelling Catheter Indwelling Catheter ABP, PAP, CO, CI - Last Documented Arterial Blood Pressure 127/56 - Labs CBC & Chem 7: 09/23/18 05:00 09/23/18 05:00 Labs: Abnormal Lab Results - Last 24 Hours (Table) 09/22/18 09/22/18 09/22/18 Range/Units 11:48 15:53 18:09 WBC (3.8-10.6) k/uL RBC (4.30-5.90) m/uL Hgb (13.0-17.5) gm/dL Hct (39.0-53.0) % RDW (11.5-15.5) % Neutrophils # (1.3-7.7) k/uL APTT 172.7 H* (22.0-30.0) sec ABG pH (7.35-7.45) ABG pCO2 (35-45) mmHg ABG HCO3 (21-25) mmol/L ABG Total CO2 (19-24) mmol/L ABG O2 Saturation (94-97) % BUN (9-20) mg/dL Creatinine (0.66-1.25) mg/dL POC Glucose (mg/dL) 109 H 118 H (75-99) mg/dL Phosphorus (2.5-4.5) mg/dL Magnesium (1.6-2.3) mg/dL 09/22/18 09/23/18 09/23/18 Range/Units 19:11 00:31 00:43 WBC (3.8-10.6) k/uL RBC (4.30-5.90) m/uL Hgb (13.0-17.5) gm/dL Hct (39.0-53.0) % RDW (11.5-15.5) % Neutrophils # (1.3-7.7) k/uL APTT >200.0 H* 66.2 H (22.0-30.0) sec ABG pH (7.35-7.45) ABG pCO2 (35-45) mmHg ABG HCO3 (21-25) mmol/L ABG Total CO2 (19-24) mmol/L ABG O2 Saturation (94-97) % BUN (9-20) mg/dL Creatinine (0.66-1.25) mg/dL POC Glucose (mg/dL) 100 H (75-99) mg/dL Phosphorus (2.5-4.5) mg/dL Magnesium (1.6-2.3) mg/dL 09/23/18 09/23/18 09/23/18 Range/Units 05:00 05:00 07:43 WBC 11.7 H (3.8-10.6) k/uL RBC 3.00 L (4.30-5.90) m/uL Hgb 8.9 L (13.0-17.5) gm/dL Hct 28.2 L (39.0-53.0) % RDW 16.6 H (11.5-15.5) % Neutrophils # 9.3 H (1.3-7.7) k/uL APTT (22.0-30.0) sec ABG pH 7.31 L (7.35-7.45) ABG pCO2 54 H (35-45) mmHg ABG HCO3 27 H (21-25) mmol/L ABG Total CO2 29 H (19-24) mmol/L ABG O2 Saturation 97.3 H (94-97) % BUN 77 H (9-20) mg/dL Creatinine 3.82 H (0.66-1.25) mg/dL POC Glucose (mg/dL) (75-99) mg/dL Phosphorus 6.5 H (2.5-4.5) mg/dL Magnesium 2.4 H (1.6-2.3) mg/dL Assessment and Plan Plan: Assessment: 1. Acute kidney injury secondary to ATN secondary to hypotension and hemodynamic instability. Baseline creatinine is 1. No evidence of hydronephrosis noted on renal ultrasound. Currently hemodialysis dependent. 2. Bilateral pulmonary embolism status post TPA maintained on IV heparin. 3. Right lower extremity DVT. 4. Hypotension now off Levophed. Cortisol level normal. 5. Acute hypoxic respiratory failure secondary to PE. 6. Hyperphosphatemia secondary to acute kidney injury. 7. SVT now in sinus rhythm. Cardiology following. 8. Volume overload. Improving with ultrafiltration. 9. Acute blood loss anemia with hemoglobin of 5.9 09/16 s/p pRBCs. Better. 10. Metabolic acidosis secondary to ACOSTA. Improved post-HD. 11. Hypokalemia from diuresis. Status post replacement. Plan: Maintain bumex drip. Maintain phoslo 3 times daily. Maintain tube feeds. Avoid nephrotoxins. Continue to monitor renal function and urine output. Continue with daily dialysis - currently seen while undergoing hemodialysis. Scheduled for tracheostomy and PEG tube placement this afternoon.
[2018-09-23 12:08] LABS: Glucose,Whole Blood 83 mg/dL (75-99)
--- NOTE | 2018-09-23 12:39 | P.PN ---
Subjective Progress Note Date: 09/23/18 Principal diagnosis: Acute hypoxic respiratory failure secondary to massive bilateral pulmonary embolism. Status post cardiopulmonary arrest and status post TPA treatment. On 09/14/2018, I am seeing this patient for a follow-up in the intensive care unit. The patient was in following a massive but the pulmonary embolism, right ventricular enlargement and right ventricular strain pattern with subsequent hemodynamic collapse and cardiac arrest. The patient is post TPA infusion at time of the code. The patient is currently on IV heparin. In terms of his breathing, the patient is intubated on a mechanical ventilator. The patient is currently on an assist-control mode at the rate of 32 with a tidal volume of 500 and FiO2 of 50% with a PEEP of 10. The chest x-ray from today shows adequate positioning of 82. There is some atelectatic changes and infiltration of the right lung base. Meanwhile, the blood gases from today showed a pH of 7.32 with a pCO2 of 48 and pO2 of 116 and this was done on the above-mentioned ventilator settings. No significant orotracheal secretions. Breath other are equal and bilateral. Airway pressures are not elevated. Hemodynamically, the patient is on pressors at 3 mics of norepinephrine infusion for blood pressure support. He has been aggressively resuscitated IV fluids and a noted significant amount of weight gain over the past several days. The patient was given a dose of Lasix yesterday. In addition the patient was having episodes of SVTs throughout his current hospitalization and he was treated with adenosine and currently is on amiodarone orally 5 mg by mouth twice a day and his cardiac rhythm is normalized and his in sinus rhythm. Echocardiogram, the patient has an ejection fraction of 6065%. The rhythm to Doxil septal motion abnormality consistent with right ventricular volume/strain pattern. Of interest also is development of acute kidney injury. The patient came in initially with a normal renal function. Subsequently creatinine came up to 1.7 and currently is up to 2.41. He was given a dose of Lasix yesterday and none since yesterday. The patient is nonoliguric. The net fluid balance over the past 24 hours is +825 mL. He is having loose liquidy bowel movement. He is currently on vital 1.2 at the rate of 35 mL an hour. He is sedated with Diprivan. Lower oximetry is a swallow with extensive swelling of the right lower extremity which also has a DVT. The patient is having on and off low- grade fever and the patient is currently on IV Ancef. Most recent hemoglobin is at 8.0. White cell count is not elevated at 7.1. He remains on IV heparin regarding the massive bilateral pulmonary embolism. Reevaluated today on 09/21/2018, patient remains off sedation for the last 2 days, minimal slow improvement in his overall mentation, patient is lethargic, arousable, follows very simple commands, like squeezing hands and wiggling toes. He seems to be profoundly weak, unable to move extremities against gravity. His ventilator settings are tidal volume of 500 assist control rate of 20 FiO2 of 40% and PEEP of 5. ABG this morning showed a pO2 of 115 pCO2 of 51 pH of 7.33. His labs were all reviewed including WBC count of 17.3 hemoglobin of 9.0. Electrolytes were noted to be relatively normal however his BUN is 97 creatinine is 4.82, patient remains on hemodialysis via a dialysis catheter in the right groin. Chest x-ray continues to show evidence of congestive heart failure possibly basilar effusions noted. Patient was reevaluated today on 09/22/2018, remains on mechanical ventilation, remained generally weak, follows very simple instructions but extremely weak, patient does not have a good gag reflex, cannot maintain a good eye contact, cannot raise his arms or legs against gravity, and he is profoundly weak. His ventilator settings are tidal volume of 500 assist control rate of 20 FiO2 of 40 % and PEEP of 5. Chest x-ray is showing now some component of interstitial edema. Pneumonia is not entirely ruled out. ABG this morning showed a pO2 of 99 pCO2 of 49 pH of 7.46. Renal functioning remains poor, BUN is 88 creatinine 4.68. WBC count is 15.8 hemoglobin is 8.8. Apparently the patient sustained acute kidney injury secondary to ATN from hypotension. Remains hemodialysis dependent. Patient remains on IV heparin and he was initially given TPA. Presently in sinus rhythm. And clearly the chest x-ray is consistent with mild pulmonary edema. Patient was reevaluated today on 09/23/2018, remains on the same ventilatory settings, patient is hemodynamically stable, remains on heparin, Mental status and neurological status is basically about the same, patient opens eyes, follows very simple instructions, but he is profoundly weak. Cannot even raise his hands or legs against gravity. He could squeeze hands, wiggling toes, and he does not maintain a good eye contact. He is scheduled to have a PEG tube placement and tracheostomy today. His heparin has been on hold for the last 4 hours. All his labs were reviewed, chest x-ray was also reviewed. Patient remains on hemodialysis on a daily basis as per nephrology. ABG today showed a pO2 of 103 pCO2 of 54 pH of 7.31. Chest x-ray continues to show small bilateral pleural effusions mostly consistent with pulmonary edema and fluid overload secondary to his renal failure and recent cardiopulmonary arrest. Strongly doubt pneumonia. Objective - Vital Signs Vital signs: Vital Signs Temp 98.7 F 09/23/18 12:00 Pulse 89 09/23/18 12:00 Resp 16 09/23/18 12:00 BP 119/65 09/16/18 14:03 Pulse Ox 95 09/23/18 12:00 Intake & Output 09/22/18 09/23/18 09/23/18 18:59 06:59 18:59 Intake Total 1783.616 517 547.717 Output Total 1451 925 552 Balance 332.616 -408 -4.283 Weight 155.3 kg 147.9 kg Intake: IV 312 312 206 Piperacillin-Tazobactam 3 50 .375 gm In Dextrose/Water 1 50ml.bag @ 12.5 mls/hr IVPB Q8H [facility] Rx#: [id number] Pressure bag 72 72 36 Sodium Chloride 0.9% 1, 240 240 120 000 ml @ 20 mls/hr IV . Q24H [facility]OVAN[facility] Rx#:[id number] Intake, IV Titration 1051.616 0 341.717 Amount Bumetanide 12 mg In 240 153.333 Dextrose 5% in Water 192 ml @ 0.5 MG/HR 10 mls/hr IV .Q24H [facility] Rx#: [id number] Heparin Sod,Pork in 0.45% 811.616 0 188.384 NaCl 25,000 unit In 0.45 % NaCl 1 500ml.bag @ 14.9 UNITS/KG/HR 45.95 mls/hr IV .[id number] [facility]OVANNY Rx#: [id number] Tube Feeding 420 175 0 Other 30 Output: Urine 1450 925 552 Stool 1 Other: Voiding Method Indwelling Catheter Indwelling Catheter Indwelling Catheter ABP, PAP, CO, CI - Last Documented Arterial Blood Pressure 124/61 - Exam Physical Exam: Revealed a 52-year-old white male morbidly obese, on mechanical ventilation, opens eyes, follows very simple instructions. Mostly like squeezing hands and wiggling toes. Head: Atraumatic, normocephalic. Endotracheal tube and nasogastric tube are noted to be intact. PERRLA, EOMI, no icterus. HEENT:[ Short obese neck Neck is supple.] [No neck masses.] [No thyromegaly.] [ No JVD.] Chest: [Course bi basilar breath sounds, crackles are also noted bilaterally. No rhonchi, no wheezes. Cardiac Exam: [Normal S1 and S2, no S3 gallop, no murmur.] Abdomen: [Soft, nontender, no megaly, no rebound, no guarding, normal bowel sounds.] Extremities: [2+ bipedal edema is noted.]. Good pulses bilaterally. Neurological Exam: PERRLA, EOMI, no nystagmus, no facial asymmetry, arousable but lethargic, no purposeful movement, no gag reflex noted today. Psychiatric: Could not be assessed. Lymphatics: No lymphadenopathy. Skin: No rashes, however significant edema noted in both lower extremities. - Labs CBC & Chem 7: 09/23/18 05:00 09/23/18 05:00 Labs: Abnormal Lab Results - Last 24 Hours (Table) 09/22/18 09/22/18 09/22/18 Range/Units 15:53 18:09 19:11 WBC (3.8-10.6) k/uL RBC (4.30-5.90) m/uL Hgb (13.0-17.5) gm/dL Hct (39.0-53.0) % RDW (11.5-15.5) % Neutrophils # (1.3-7.7) k/uL APTT 172.7 H* >200.0 H* (22.0-30.0) sec ABG pH (7.35-7.45) ABG pCO2 (35-45) mmHg ABG HCO3 (21-25) mmol/L ABG Total CO2 (19-24) mmol/L ABG O2 Saturation (94-97) % BUN (9-20) mg/dL Creatinine (0.66-1.25) mg/dL POC Glucose (mg/dL) 118 H (75-99) mg/dL Phosphorus (2.5-4.5) mg/dL Magnesium (1.6-2.3) mg/dL 09/23/18 09/23/18 09/23/18 Range/Units 00:31 00:43 05:00 WBC 11.7 H (3.8-10.6) k/uL RBC 3.00 L (4.30-5.90) m/uL Hgb 8.9 L (13.0-17.5) gm/dL Hct 28.2 L (39.0-53.0) % RDW 16.6 H (11.5-15.5) % Neutrophils # 9.3 H (1.3-7.7) k/uL APTT 66.2 H (22.0-30.0) sec ABG pH (7.35-7.45) ABG pCO2 (35-45) mmHg ABG HCO3 (21-25) mmol/L ABG Total CO2 (19-24) mmol/L ABG O2 Saturation (94-97) % BUN (9-20) mg/dL Creatinine (0.66-1.25) mg/dL POC Glucose (mg/dL) 100 H (75-99) mg/dL Phosphorus (2.5-4.5) mg/dL Magnesium (1.6-2.3) mg/dL 09/23/18 09/23/18 Range/Units 05:00 07:43 WBC (3.8-10.6) k/uL RBC (4.30-5.90) m/uL Hgb (13.0-17.5) gm/dL Hct (39.0-53.0) % RDW (11.5-15.5) % Neutrophils # (1.3-7.7) k/uL APTT (22.0-30.0) sec ABG pH 7.31 L (7.35-7.45) ABG pCO2 54 H (35-45) mmHg ABG HCO3 27 H (21-25) mmol/L ABG Total CO2 29 H (19-24) mmol/L ABG O2 Saturation 97.3 H (94-97) % BUN 77 H (9-20) mg/dL Creatinine 3.82 H (0.66-1.25) mg/dL POC Glucose (mg/dL) (75-99) mg/dL Phosphorus 6.5 H (2.5-4.5) mg/dL Magnesium 2.4 H (1.6-2.3) mg/dL Assessment and Plan Assessment: Impression: 1 acute hypoxic respiratory failure secondary to massive bilateral pulmonary embolism. Status post cardiopulmonary arrest, status post TPA treatment, remains on heparin. Remains on mechanical ventilation. 2 massive pulmonary embolism with right ventricular strain and subsequent cardiac arrest. No clear-cut evidence of anoxic brain injury, however patient may have some encephalopathy related to his cardiopulmonary arrest and anoxic injury. Will likely consider neurological evaluation today after his tracheostomy. 3 acute metabolic encephalopathy, possibility of anoxic brain injury is not entirely ruled out. 4 acute kidney injury secondary to hypotension and acute tubular necrosis, remains on dialysis. 5 acute deep vein thrombosis of right lower extremity, presently on heparin. 6 chronic normocytic anemia, likely multifactorial. 7 history of smoking 8 morbid obesity with BMI of 46.5 9 possible aspiration pneumonia, as noted on the chest x-ray, I believe the findings on the chest x-ray are likely findings of pulmonary edema. Aspiration pneumonia could also be a possibility but very unlikely. 10 status post cardiopulmonary arrest secondary to massive pulmonary embolism. Discussed his condition with his sister at bedside, patient will undergo tracheostomy and PEG tube placement today. Scheduled to have the surgery at 12: [address] Lawler. Recommendation: Continue mechanical ventilation, hold heparin temporarily for tracheostomy and PEG tube placement. Continue nutritional support, via nasogastric tube. Continue all present supportive care measures, again I had a discussion with his sister regarding his condition and updated her on the condition. She is very well aware that possibly in the next 5 days we would potentially consider transfer to [facility]. We'll also initiate a neurological evaluation. Prognosis remains extremely poor and guarded, patient will remain in the ICU. Critical care time is 40 minutes. Time with Patient: Greater than 30
--- NOTE | 2018-09-23 13:14 | P.GSCN ---
History of Present Illness Consult date: 09/23/18 Reason for Consult: Placement PEG and trach History of present illness: 52-year-old male who presented to the emergency room initially with a chief complaint of feeling short of breath. Patient has a history of lymphedema, DVT and a pulmonary emboli. Patient apparently was treated for pulmonary emboli 6 months ago with Coumadin. Patient apparently had an episode of cardiopulmonary arrest. Subsequently to that the patient developed noman respiratory distress a cardiopulmonary arrest as well had prolonged resuscitation with difficulty placing an endotracheal tube patient underwent a significant cardiopulmonary resuscitation. TPA was given by the ER doctor. Patient was transferred to the ICU. Placed on vent support with sedation dipvan. Patient has been maintained on mechanical ventilation. Currently we'll follow only very simple instructions extremely weak. Reportedly does not have a good gag reflex. Could not maintain eye contact. Patient appeared could not raise his arms or legs against gravity is profoundly weak. Patient is being followed by multiple consulting physicians. From the attending a request for surgical eval for placement of PEG tube and tracheostomy today currently patient is on vent support sedated no family at bedside Review of Systems Not able to obtain Past Medical History Past Medical History: Deep Vein Thrombosis (DVT), Pulmonary Embolus (PE) Additional Past Medical History / Comment(s): x-smoker, seborrheic dermatitits, keyur leg lympg edema, anxiety History of Any Multi-Drug Resistant Organisms: None Reported Past Surgical History: Cholecystectomy, Hernia Repair Additional Past Surgical History / Comment(s): left achillies tendon repair 1974 , umb hernia repair Past Anesthesia/Blood Transfusion Reactions: No Reported Reaction Smoking Status: Former smoker - Past Family History Brother(s) Family Medical History: Pulmonary Embolus Additional Family Medical History / Comment(s): CABG Mother Family Medical History: COPD, Pneumonia Additional Family Medical History / Comment(s): non-smoker. at age 89 Father Family Medical History: Myocardial Infarction ([place]) Additional Family Medical History / Comment(s): smoker, mi - age 64 Medications and Allergies Home Medications Medication Instructions Recorded Confirmed Type Multivitamin,Therapeutic [Thera] 1 tab PO DAILY 09/08/18 09/08/18 History Naproxen Sodium [Aleve] 220 mg PO DAILY 09/08/18 09/08/18 History Allergies Allergy/AdvReac Type Severity Reaction Status Date / Time No Known Allergies Allergy Verified 09/08/18 11:26 Surgical - Exam Vital Signs Temp Pulse Resp BP Pulse Ox 97.7 F 153 H 24 108/75 96 09/08/18 10:07 09/08/18 10:07 09/08/18 10:07 09/08/18 10:07 09/08/18 10:07 Physical exam 52-year-old male intubated sedated on mechanical ventilation to verbal stimuli will open eyes does not consistently follow simple commands Lungs decreased anterior the bases no rhonchi no wheezing noted Heart S1-S2 audible no murmur Abdomen obese soft no rebound bowel tones present tube feeds on hold indwelling Gonsales catheter in place Extremities bilateral 2+ pedal edema noted Results - Labs 09/23/18 05:00 09/23/18 05:00 Abnormal Lab Results - Last 24 Hours (Table) 09/22/18 09/22/18 09/22/18 Range/Units 15:53 18:09 19:11 WBC (3.8-10.6) k/uL RBC (4.30-5.90) m/uL Hgb (13.0-17.5) gm/dL Hct (39.0-53.0) % RDW (11.5-15.5) % Neutrophils # (1.3-7.7) k/uL APTT 172.7 H* >200.0 H* (22.0-30.0) sec ABG pH (7.35-7.45) ABG pCO2 (35-45) mmHg ABG HCO3 (21-25) mmol/L ABG Total CO2 (19-24) mmol/L ABG O2 Saturation (94-97) % BUN (9-20) mg/dL Creatinine (0.66-1.25) mg/dL POC Glucose (mg/dL) 118 H (75-99) mg/dL Phosphorus (2.5-4.5) mg/dL Magnesium (1.6-2.3) mg/dL 09/23/18 09/23/18 09/23/18 Range/Units 00:31 00:43 05:00 WBC 11.7 H (3.8-10.6) k/uL RBC 3.00 L (4.30-5.90) m/uL Hgb 8.9 L (13.0-17.5) gm/dL Hct 28.2 L (39.0-53.0) % RDW 16.6 H (11.5-15.5) % Neutrophils # 9.3 H (1.3-7.7) k/uL APTT 66.2 H (22.0-30.0) sec ABG pH (7.35-7.45) ABG pCO2 (35-45) mmHg ABG HCO3 (21-25) mmol/L ABG Total CO2 (19-24) mmol/L ABG O2 Saturation (94-97) % BUN (9-20) mg/dL Creatinine (0.66-1.25) mg/dL POC Glucose (mg/dL) 100 H (75-99) mg/dL Phosphorus (2.5-4.5) mg/dL Magnesium (1.6-2.3) mg/dL 09/23/18 09/23/18 Range/Units 05:00 07:43 WBC (3.8-10.6) k/uL RBC (4.30-5.90) m/uL Hgb (13.0-17.5) gm/dL Hct (39.0-53.0) % RDW (11.5-15.5) % Neutrophils # (1.3-7.7) k/uL APTT (22.0-30.0) sec ABG pH 7.31 L (7.35-7.45) ABG pCO2 54 H (35-45) mmHg ABG HCO3 27 H (21-25) mmol/L ABG Total CO2 29 H (19-24) mmol/L ABG O2 Saturation 97.3 H (94-97) % BUN 77 H (9-20) mg/dL Creatinine 3.82 H (0.66-1.25) mg/dL POC Glucose (mg/dL) (75-99) mg/dL Phosphorus 6.5 H (2.5-4.5) mg/dL Magnesium 2.4 H (1.6-2.3) mg/dL Diabetes panel 09/23/18 Range/Units 05:00 Sodium 138 (137-145) mmol/L Potassium 3.9 (3.5-5.1) mmol/L Chloride 105 (98-107) mmol/L Carbon Dioxide 25 (22-30) mmol/L BUN 77 H (9-20) mg/dL Creatinine 3.82 H (0.66-1.25) mg/dL Glucose 97 (74-99) mg/dL Calcium 8.7 (8.4-10.2) mg/dL Calcium panel 09/23/18 Range/Units 05:00 Calcium 8.7 (8.4-10.2) mg/dL Phosphorus 6.5 H (2.5-4.5) mg/dL Pituitary panel 09/23/18 Range/Units 05:00 Sodium 138 (137-145) mmol/L Potassium 3.9 (3.5-5.1) mmol/L Chloride 105 (98-107) mmol/L Carbon Dioxide 25 (22-30) mmol/L BUN 77 H (9-20) mg/dL Creatinine 3.82 H (0.66-1.25) mg/dL Glucose 97 (74-99) mg/dL Calcium 8.7 (8.4-10.2) mg/dL Adrenal panel 09/23/18 Range/Units 05:00 Sodium 138 (137-145) mmol/L Potassium 3.9 (3.5-5.1) mmol/L Chloride 105 (98-107) mmol/L Carbon Dioxide 25 (22-30) mmol/L BUN 77 H (9-20) mg/dL Creatinine 3.82 H (0.66-1.25) mg/dL Glucose 97 (74-99) mg/dL Calcium 8.7 (8.4-10.2) mg/dL Assessment and Plan Assessment: Impression Present on admission acute hypoxic respiratory failure secondary to massive bilateral pulmonary emboli Status post cardiopulmonary arrest status post TPA treatment Acute metabolic encephalopathy possible anoxic brain injury not entirely ruled out History of an acute DVT right lower extremity Massive pulmonary emboli with right ventricular strain subsequent cardiac arrest Morbid obesity BMI 41.9 Plan Continue ICU management per the car carder Patient will be scheduled by Dr. orozco to undergo PEG tube placement and tracheostomy today Continue with current recommendations from creative consultant Will follow with you Surgical consultation note dictated for Dr. orozco The above impression and plan of care have been discussed and directed by signing physician. Ella Vargas nurse practitioner acting as scribe for signing physician.
[2018-09-23] MEDS ORDERED: fentaNYL (PF) 50 MCG/ML 2 ML AMP ONE (14:33)
[2018-09-23] MEDS ORDERED: MIDAZOLAM 2 MG/2 ML VIAL ONE (14:33)
[2018-09-23] MEDS: SODIUM CHLORIDE 0.9% 500 ML 500 ML IV ONE ×2 (14:33→15:57)
[2018-09-23] MEDS: MULTIVITAMINS, THERA 1 EACH TAB PO SCH (14:33)
[2018-09-23] MEDS ORDERED: SODIUM CHLORIDE 0.9% 500 ML 500 ML IV ONE ×2 (14:33)
[2018-09-23] MEDS ORDERED: CISATRACURIUM 2 MG/ML 5 ML VIAL IV ONE (14:33)
--- NOTE | 2018-09-23 15:42 | P.OP ---
Date of Procedure: 09/23/18 Preoperative Diagnosis: Respiratory failure Malnutrition Postoperative Diagnosis: Respiratory failure malnutrition Procedure(s) Performed: Tracheostomy Placement of PEG tube Anesthesia: NICOLE Surgeon: Juan Lawler Pathology: none sent Condition: stable Disposition: PACU Description of Procedure: The patient's placed on the operative table in supine position. He received general anesthesia. His neck was prepped and draped usual fashion. Standard [place] incision was made approximately 3 cm above the sternal notch. Using a 15 blade the skin was incised and using left cautery the platysma was divided. The strap muscles were retracted in the midline. The pretracheal fat was divided. The trachea was exposed. We plan is to place the wound. The second and third tracheal rings were identified. And then the endotracheal tube was placed the right mainstem bronchus. The tracheotomy is performed using cautery. Under direct visualization the tracheostomy tube was brought back and then the #8 Shiley fenestrated tracheostomy was placed into the trachea under direct vision. Patient was connected to the ventilator and end-tidal CO2 was confirmed. The skin was closed interrupted 3-0 nylon suture and then the umbilical tape was placed for the trach tie. Next the gastric scope placed oropharynx and the stomach. A suitable light reflux was seen. The abdominal wall was prepped and draped in sterile fashion. Skin was incised 11 blade. The needles placed in the stomach under direct visualization. The needle was then snared and then the wire was placed through the needle and then the wire was snared brought to the oropharynx. The PEG tube placed overtop the wire and brought down to the stomach. The PEG tube was secured at 3 cm malia. The one-piece bolster was applied. Patient tolerates procedure well. And was sent to recovery in stable condition.
[2018-09-23] MEDS: HEPARIN SODIUM,PORCINE 5,000 UNIT/ML 1 ML VIAL IV PRN (18:06)
[2018-09-23] MEDS: PIPERACILLIN-TAZOBACTAM 3.375 GM in SODIUM CHLORIDE 0.9% 100 ML IVPB SCH (18:08)
[2018-09-23 18:34] LABS: Glucose,Whole Blood 94 mg/dL (75-99)
[2018-09-23] MEDS: SODIUM CHLORIDE 0.9% 1,000 ML IV SCH (20:13)
--- NOTE | 2018-09-23 21:24 | P.PN ---
Subjective Progress Note Date: 09/22/18 Progress note being dictated for Dr. Culp. Interval history:Massive pulmonary embolism Acute cardiopulmonary arrest status post CPR and intubation Patient is a 52-year-old male with a known history of chronic bilateral lower extremity lymphedema and history of pulmonary embolism about a year ago, currently not taking Coumadin for the past 6-8 months came to ER with complaints of acute worsening shortness of breath since yesterday. Patient says that he has been having shortness of breath for the last couple of weeks but suddenly got worse yesterday. Patient was told that his DVT and pulmonary embolus was secondary to sedentary lifestyle and sleeping in a sitting position. Patient states he took his Coumadin for about 6 months. He was so several follow-up appointment in November for repeat evaluation however he did not follow-up with that appointment. He stopped his Coumadin in November. Denies any constitutional symptoms. Patient feels much more short of breath with exertion. Chest pain. He feels as though both of his legs are much more edematous than usual suspicion is right lower extremity. Lower extremity duplex scan showed acute DVT right popliteal vein through the proximal calf veins CTA chest showed massive bilateral pulmonary embolism with right ventricular enlargement suggestive of right ventricular strain correlate clinically. A 7 mm and 4 mm right lower lobe pulmonary nodule not seen previous exam subpleural in location could be inflammatory. WBC 14.1 Troponin 0.258 Potassium 5.3 On 09/09/2018 Patient had a brief episode of cardiopulmonary arrest this morning and developed respiratory distress. Subsequently patient was intubated and was transferred to MICU. Patient had a difficult intubation. Patient was given TPA by ER physician. Patient also received multiple doses of epinephrine and sodium bicarbonate. Patient is currently on Levophed drip. Being continued on heparin drip as well. Patient is currently sedated. Initial ABG showed pH 7.0, pCO2 80, pO2 118 Patient was seen by cardiology and pulmonary. 09/10/2018 Patient is currently mechanically ventilated and sedated. Patient is being continued on heparin drip. Continues to be on Levothroid drip. Patient had SVT during cardiopulmonary arrest. Patient was started on amiodarone.. Otherwise hemoglobin dropped to 10.7 today. Continues to have bloody secretions which is being suctioned. Chest x-ray showed bilateral pleural effusion and consolidation. AST 559 and ALT 509 albumin 2.6. Cultures negative so far. Creatinine 1.76. 09/11/2018 52-year-old gentleman with a history of massive bilateral pulmonary embolism right ventricular enlargement and right heart strain. He did receive systemic TPA and was on IV heparin until yesterday which time was turned off because of ongoing bleeding. The patient's overall prognosis remains very guarded. The patient remains on ventilator. Arterial blood gases show a PaO2 of 113 PaCO2 38 and a pH of 7.4. The patient is on saline at 75 mL an hour; Heparin was discontinued yesterday because of ongoing bleeding from the cavity and NG tube. In addition, he's had about a 1 g hemoglobin drop on a daily basis. This morning's hemoglobin is 9.9. 09/12/2018; The patient's overall prognosis remains very guarded. The patient was given a daily interruption of sedation today but could not have a spontaneous breathing trial because he became very tachypnea with respiratory rates above 40. Currently, he is on the volume assist control mode rate of 32, tidal volume 500 , FiO2 35% to be increased to 40% and 5 of PEEP. Arterial blood gases showed a PaO2 of 59 a PaCO2 of 43 and a pH 7.37. That was on 35% FiO2. In addition, the patient's on norepinephrine at 7 mics per minute, propofol at 65 mcg/kg/m, saline IV at 75 mL an hour, heparin via weightbase protocol and vital 1.2 at goal. Chest x-ray shows bilateral effusions with basilar atelectasis and/or infiltrates. On 09/15/2018 Patient currently on mechanical ventilation with assist control and sedation. Patient is being continued on IV heparin. Hemoglobin is 7.5. Renal function slightly worsened with increasing creatinine level 3.56. No active bleeding noted. Chest x-ray showed bilateral pleural effusion and pulmonary vascular congestion. Patient was given a dose of Lasix previously. Patient is currently on antibiotics in the form of Zosyn. 09/16/2018 Patient was seen and examined in the MICU. Currently maintained on mechanical ventilator. Hemoglobin dropped to 5.9 today. 2 units of PRBC was ordered. No signs of active bleeding noted. Patient is being continued on IV heparin. Chest x-ray showed evidence of bilateral consolidation and pleural effusion. Correlate for pulmonary edema and diffuse pneumonia. Currently on Lasix drip. Creatinine level increased to 3.89 today. Otherwise patient is getting empiric antibiotics for possible pneumonia aspiration likely. Patient is being followed by pulmonary cardiology and nephrology. 09/17/2018 Patient is currently on mechanical ventilator. Chest x-ray showed possible fluid overload/pneumonia. Creatinine is trending up at 4.7 today. Hemoglobin is 7.6. Continued on IV heparin. held for permacath placement. Nephrology is planning for hemodialysis. No fever no chills. 09/20/2018 Patient is on mechanical ventilator. Patient is off sedation and is able to blink his eyes. Patient is being continued on hemodialysis. Patient had 3 hemodialysis sessions last one yesterday. Continued on IV antibiotics the form of Zosyn. Leukocytosis slightly improved to 23.7, hemoglobin 9.5 No other acute overnight issues. 09/21/2018 Patient remained on mechanical ventilator. Off sedation and also support. Patient does have slight improvement in mental status. Patient is extremely lethargic and follows simple commands. Hemoglobin is 9.0. Leukocytosis is improved to 17.3. Patient is getting hemodialysis today. Creatinine level IV.82. Chest x-ray showed evidence of congestive heart failure and pleural effusion noted. Patient is afebrile. Blood pressure is maintained. Active Medications Active Medications Generic Name Dose Route Start Last Admin Trade Name Freq PRN Reason Stop Dose Admin Albuterol/Ipratropium 3 ml 09/09/18 09:37 Duoneb 0.5 Mg-3 Mg/3 Ml Soln INHALATION RT-Q2H PRN Shortness Of Breath Or Wheezing Albuterol/Ipratropium 3 ml 09/09/18 12:00 09/20/18 23:21 Duoneb 0.5 Mg-3 Mg/3 Ml Soln INHALATION 3 ml RT-Q4H GIOVANNY Administration Amiodarone HCl 200 mg 09/20/18 21:00 09/20/18 22:29 Cordarone PO 200 mg BID GIOVANNY Administration Calcium Acetate 667 mg 09/17/18 07:30 09/20/18 17:14 Phoslo PO 667 mg TID-W/MEALS GIOVANNY Administration Chlorhexidine Gluconate 15 ml 09/09/18 21:00 09/20/18 22:29 Peridex MUCOUS MEM 15 ml BID GIOVANNY Administration Heparin Sodium (Porcine) 0 unit 09/08/18 10:49 09/09/18 04:34 Heparin IV 4,000 unit PER PROTOCOL PRN Administration Low PTT Protocol Hydralazine HCl 10 mg 09/18/18 21:19 09/20/18 04:53 Apresoline IVP 10 mg Q4HR PRN Administration Blood Pressure - High Hydralazine HCl 25 mg 09/20/18 09:30 09/20/18 22:29 Apresoline PO 25 mg QID GIOVANNY Administration Hydromorphone HCl 1 mg 09/10/18 17:33 09/20/18 18:01 Dilaudid IVP 1 mg Q1HR PRN Administration Mild to Moderate Pain Hydromorphone HCl 2 mg 09/10/18 17:33 09/20/18 21:18 Dilaudid IVP 2 mg Q1HR PRN Administration Moderate to Severe Pain Heparin Sodium/Sodium Chloride 500 mls @ 45.95 mls/hr 09/08/18 11:00 11:50 25,000 unit/ Sodium Chloride IV 16 units/kg/hr .[id number] GIOVANNY 49.35 mls/hr Administration Protocol 14.9 UNITS/KG/HR Propofol 1,000 mg/ IV Solution 100 mls @ 0 mls/hr 09/09/18 09:45 09/18/18 09: 02 IV 0 mcg/kg/min .Q0M GIOVANNY 0 mls/hr Titration Protocol Titrate Norepinephrine Bitartrate 16 250 mls @ 0 mls/hr 09/09/18 10:00 09/15/18 14:40 mg/ Sodium Chloride IV 0 mcg/min .Q0M GIOVANNY 0 mls/hr Titration Protocol Titrate Sodium Chloride 1,000 mls @ 20 mls/hr 09/10/18 12:45 09/20/18 22:31 Saline 0.9% IV 20 mls/hr .Q24H GIOVANNY Administration Acetaminophen 1,000 mg/ IV 100 mls @ 400 mls/hr 09/13/18 20:44 09/13/18 21:55 Solution IVPB 400 mls/hr ONCE PRN Administration Fever>101 Piperacillin/Tazobactam/ 50 mls @ 12.5 mls/hr 09/14/18 10:00 09/20/18 18:01 Dextrose 3.375 gm/ IV Solution IVPB 12.5 mls/hr Q8H GIOVANNY Administration Bumetanide 12 mg/ Dextrose/ 240 mls @ 10 mls/hr 09/18/18 10:30 09/20/18 09:56 Water IV 0.5 mg/hr .Q24H GIOVANNY 10 mls/hr Administration 0.5 MG/HR Insulin Aspart 0 unit 09/10/18 06:00 09/20/18 18:08 Novolog SQ Not Given Q6HR GIOVANNY Protocol Miscellaneous Information 1 each 09/10/18 16:16 Potassium Per Protocol MISCELLANE DAILY PRN Per Protocol Protocol Miscellaneous Information 1 each 09/10/18 22:11 Magnesium Per Protocol MISCELLANE DAILY PRN Per Protocol Protocol Multivitamins 1 each 09/09/18 12:00 09/20/18 11:49 Theragran PO 1 each DAILY@1200 GIOVANNY Administration Naloxone HCl 0.2 mg 09/08/18 15:00 Narcan IV Q2M PRN Opioid Reversal Pantoprazole Sodium 40 mg 09/10/18 09:00 09/20/18 08:25 Protonix IVP 40 mg DAILY GIOVANNY Administration 09/22/2018 continues on mechanical ventilation, FiO2 40%/+5 of PEEP. Maintained on heparin drip, Bumex drip and daily hemodialysis. Tolerating breathing trial today, currently up to 1-1/2 hours. Telemetry sinus rhythm. Chest x-ray reporting possible CHF with pleural effusions, possible pneumonia. Staff reports patient following commands but not tracking with eyes.significant generalized weakness .Brain CT non acute. Creatinine 4.68, hemoglobin 8.8 Objective - Vital Signs Vital signs: Vital Signs Temp 97.8 F 09/22/18 16:00 Pulse 96 09/22/18 19:21 Resp 22 09/22/18 19:00 BP 119/65 09/16/18 14:03 Pulse Ox 96 09/22/18 19:00 Intake & Output 09/22/18 09/22/18 09/23/18 06:59 18:59 06:59 Intake Total 1392 1783.616 61 Output Total 1311 1451 115 Balance 81 332.616 -54 Weight 155.3 kg Intake: IV 312 312 26 Pressure bag 72 72 6 Sodium Chloride 0.9% 1, 240 240 20 000 ml @ 20 mls/hr IV . Q24H GIOVANNY Rx#:[id number] Intake, IV Titration 500 1051.616 0 Amount Bumetanide 12 mg In 240 Dextrose 5% in Water 192 ml @ 0.5 MG/HR 10 mls/hr IV .Q24H GIOVANNY Rx#: [id number] Heparin Sod,Pork in 0.45% 500 811.616 0 NaCl 25,000 unit In 0.45 % NaCl 1 500ml.bag @ 14.9 UNITS/KG/HR 45.95 mls/hr IV .[id number] GIOVANNY Rx#: [id number] Tube Feeding 490 420 35 Other 90 Output: Urine 1310 1450 115 Stool 1 1 Other: Voiding Method Indwelling Catheter Indwelling Catheter # Voids 1 ABP, PAP, CO, CI - Last Documented Arterial Blood Pressure 161/90 - Exam Patient is lying in the bed comfortably, currently intubated HEENT: Normocephalic. Neck is supple. Pupils reactive. Nostrils clear. Oral cavity is moist. Neck unable to assess JVD-short neck, supple, carotid bruits, or thyromegaly. CHEST EXAMINATION: Trachea is central. Symmetrical expansion. Bibasilar diminished air entry and crackles present. Scattered rhonchi. CARDIAC: Normal S1, S2 with no gallops. No murmurs ABDOMEN: Soft. Bowel sounds normal. No organomegaly. No abdominal bruits. Extremities: Bilateral lower extremity lymphedema with 3+ edema. No clubbing or cyanosis. Neurologically/Psychiatric . Patient is awake. Extremity weak. Unable to assess, patient intubated. Skin: No rash or skin lesions except above. - Labs CBC & Chem 7: 09/23/18 05:00 09/23/18 05:00 Labs: Abnormal Lab Results - Last 24 Hours (Table) 09/22/18 09/22/18 09/22/18 Range/Units 00:22 05:20 05:20 WBC 15.8 H (3.8-10.6) k/uL RBC 2.92 L (4.30-5.90) m/uL Hgb 8.8 L (13.0-17.5) gm/dL Hct 27.7 L (39.0-53.0) % RDW 17.4 H (11.5-15.5) % Neutrophils # 12.9 H (1.3-7.7) k/uL APTT (22.0-30.0) sec ABG pCO2 (35-45) mmHg ABG HCO3 (21-25) mmol/L ABG Total CO2 (19-24) mmol/L ABG O2 Saturation (94-97) % BUN 88 H (9-20) mg/dL Creatinine 4.68 H (0.66-1.25) mg/dL Glucose 117 H (74-99) mg/dL POC Glucose (mg/dL) 116 H (75-99) mg/dL Phosphorus 7.0 H (2.5-4.5) mg/dL Magnesium 2.8 H (1.6-2.3) mg/dL 09/22/18 09/22/18 09/22/18 Range/Units 05:20 07:53 11:48 WBC (3.8-10.6) k/uL RBC (4.30-5.90) m/uL Hgb (13.0-17.5) gm/dL Hct (39.0-53.0) % RDW (11.5-15.5) % Neutrophils # (1.3-7.7) k/uL APTT 91.9 H (22.0-30.0) sec ABG pCO2 49 H (35-45) mmHg ABG HCO3 28 H (21-25) mmol/L ABG Total CO2 30 H (19-24) mmol/L ABG O2 Saturation 97.8 H (94-97) % BUN (9-20) mg/dL Creatinine (0.66-1.25) mg/dL Glucose (74-99) mg/dL POC Glucose (mg/dL) 109 H (75-99) mg/dL Phosphorus (2.5-4.5) mg/dL Magnesium (1.6-2.3) mg/dL 09/22/18 09/22/18 09/22/18 Range/Units 15:53 18:09 19:11 WBC (3.8-10.6) k/uL RBC (4.30-5.90) m/uL Hgb (13.0-17.5) gm/dL Hct (39.0-53.0) % RDW (11.5-15.5) % Neutrophils # (1.3-7.7) k/uL APTT 172.7 H* >200.0 H* (22.0-30.0) sec ABG pCO2 (35-45) mmHg ABG HCO3 (21-25) mmol/L ABG Total CO2 (19-24) mmol/L ABG O2 Saturation (94-97) % BUN (9-20) mg/dL Creatinine (0.66-1.25) mg/dL Glucose (74-99) mg/dL POC Glucose (mg/dL) 118 H (75-99) mg/dL Phosphorus (2.5-4.5) mg/dL Magnesium (1.6-2.3) mg/dL Assessment and Plan Assessment: Acute cardiopulmonary arrest likely due to pulmonary embolism. Status post CPR and spontaneous return of circulation. Currently mechanical ventilator - dependent. Acute hypercapnic, hypoxic respiratory failure secondary to massive bilateral pulmonary embolism. Currently mechanical ventilator -dependent Massive pulmonary embolism with right ventricular strain. Patient was given TPA during CPR Acute hypotension . S/P pressor support. 2-D echocardiogram showed normal LV function Pulmonary edema Possible right lower lobe pneumonia Nonoliguric acute kidney injury due to ATN. Started on hemodialysis during this admission. Acute on chronic anemia. Possible acute blood loss anemia Elevated troponin level secondary to right ventricular strain Acute lower extremity DVT Family history of pulmonary embolism in his brother Mild hyperkalemia 5.3 Recent history of pulmonary embolism about a year ago. Stopped taking Coumadin since November 2017 Previous history of smoking Bilateral lower extremity chronic lymphedema Morbid obesity with BMI 43.7 Seborrheic dermatitis history Anxiety Plan: Continue on current medication regime ,monitoring and symptomatic treatment. Close monitoring of renal function. Currently receiving daily hemodialysis as per nephrology in addition to Bumex drip. Scheduled for trach and peg tomorrow. Sister updated at bedside including pending neurological evaluation, potential transfer to [facility]. The impression and plan of care has been dictated as directed. : I performed a history and examination of this patient, discussed the same with the dictator. I agree with the dictator's note ,documented as a scribe. Any additional findings or plans will be noted.
[2018-09-24 00:18] LABS: Glucose,Whole Blood 97 mg/dL (75-99)
[2018-09-24] MEDS: HYDROmorphone 1 MG/ML 1 ML SYRINGE IVP PRN ×9 (00:40→22:02)
[2018-09-24] MEDS: PIPERACILLIN-TAZOBACTAM 3.375 GM in SODIUM CHLORIDE 0.9% 100 ML IVPB SCH ×3 (01:53→18:08)
[2018-09-24] MEDS: INSULIN ASPART 100 UNIT/ML 1 ML 10 ML VIAL SQ SCH ×4 (01:54→18:13)
[2018-09-24] MEDS: IPRATROPIUM-ALBUTEROL 3 ML NEB INHALATION SCH ×6 (03:09→23:27)
[2018-09-24 05:11] LABS: Anisocytosis Slight; Basophils # (A) 0.1 k/uL (0-0.2); Basophils % (A) 0 %; Eosinophils # (A) 0.3 k/uL (0-0.7); Eosinophils % (A) 2 %; HCT 29.3 % (39.0-53.0); HGB 9.4 gm/dL (13.0-17.5); Hypochromasia Slight; Lymphocytes # (A) 1.5 k/uL (1.0-4.8); Lymphocytes % (A) 12 %; MCH 30.5 pg (25.0-35.0); MCHC 32.2 g/dL (31.0-37.0); MCV 94.8 fL (80.0-100.0); Mean Platelet Volume 7.7; Monocytes # (A) 0.6 k/uL (0-1.0); Monocytes % (A) 5 %; Neutrophils % (A) 79 %; Platelet Count 173 k/uL (150-450); RDW 16.4 % (11.5-15.5); WBC 12.7 k/uL (3.8-10.6)
[2018-09-24] MEDS: HEPARIN SODIUM,PORCINE 5,000 UNIT/ML 1 ML VIAL IV PRN ×2 (05:55→08:24)
[2018-09-24 05:57] LABS: Calcium 8.8 mg/dL (8.4-10.2); Magnesium 2.4 mg/dL (1.6-2.3); Potassium 3.7 mmol/L (3.5-5.1)
[2018-09-24 07:46] LABS: ABG Base Excess 0.5 mmol/L; ABG HCO3 26 mmol/L (21-25); ABG Oxygen Saturation 98.2 % (94-97); ABG PCO2 49 mmHg (35-45); ABG PH 7.34 (7.35-7.45); ABG PO2 109 mmHg (83-108); ABG TCO2 28 mmol/L (19-24)
[2018-09-24] MEDS: CHLORHEXIDINE GLUCONATE 15 ML CUP MUCOUS MEM SCH ×2 (08:11→22:09)
[2018-09-24] MEDS: PANTOPRAZOLE 40 MG/10 ML VIAL IVP SCH (08:11)
[2018-09-24] MEDS: AMIODARONE 200 MG TAB PO SCH (08:12)
[2018-09-24] MEDS: METOPROLOL TARTRATE 25 MG TAB PO SCH ×2 (08:12→22:09)
[2018-09-24] MEDS: hydrALAZINE HCL 50 MG TAB PO SCH ×3 (08:12→22:09)
[2018-09-24] MEDS: CALCIUM ACETATE 667 MG CAP PO SCH ×3 (08:12→17:01)
--- NOTE | 2018-09-24 09:45 | PN ---
PROGRESS NOTE Mr. Rowley is a 52-year-old male who presented with a massive bilateral pulmonary embolism with respiratory failure. He has underwent a PEG tube and a trach yesterday. He is opening his eyes to verbal stimuli and squeezing his hands. He appears a little bit stronger. Hemodynamically stable. His blood pressure is elevated at times, especially when he is agitated. His urine output has been stable. He continued to be in sinus mechanism. There is no evidence of arrhythmia. He continues to be on IV heparin at this point. He otherwise is on amiodarone 200 mg daily, IV Bumex drip, hydralazine 50 mg 3 times a day, metoprolol tartrate 25 mg twice a day. PHYSICAL EXAMINATION: Blood pressure in the 130s/60 with a heart rate in the 80s. LUNGS: Clear anteriorly. HEART: Regular rate and rhythm. S1, S2. No S3. No rub appreciated. ABDOMEN: Soft, obese, nontender. EXTREMITIES: +1 edema. LAB DATA: Revealed a hemoglobin 9.4, white blood cell of 12.7, platelets count of 173,000. His BUN and creatinine 72 and 3.78. His urine output has been good. IMPRESSION: 1. Status post massive bilateral pulmonary embolism with respiratory failure and evidence of right-sided strain. 2. Evidence of atrial arrhythmia, resolved. 3. Acute renal injury, has received dialysis. 4. Morbid obesity. 5. Hypertension under better control. RECOMMENDATION: From the cardiac standpoint, I would recommend to initiate treatment with oral anticoagulation, probably in the form of Xarelto 20 mg daily and stop the heparin. Probably we can pull the A-line today, start to increase the physical therapy. Most likely the patient will have a long weaning process, but he is making improvement overall. MMODL / IJN: [id number] /
[2018-09-24 11:29] LABS: Glucose,Whole Blood 90 mg/dL (75-99)
--- NOTE | 2018-09-24 11:42 | P.PN ---
Subjective Progress Note Date: 09/24/18 52-year-old male being seen in the intensive care unit in a follow-up visit status post tracheostomy and PEG tube placement done on September [address] a mechanical vent support. PEG tube no redness around site tube feeds to be initiated this afternoon Objective - Vital Signs Vital signs: Vital Signs Temp 98.4 F 09/24/18 08:00 Pulse 82 09/24/18 11:00 Resp 20 09/24/18 11:00 BP 131/73 09/24/18 11:00 Pulse Ox 98 09/24/18 11:00 Intake & Output 09/23/18 09/24/18 09/24/18 18:59 06:59 18:59 Intake Total 947.717 488.219 236.435 Output Total 1117 1055 895 Balance -169.283 -566.781 -658.565 Weight 147.9 kg 147.9 kg Intake: IV 606 312 140 Piperacillin-Tazobactam 3 100 50 .375 gm In Dextrose/Water 1 50ml.bag @ 12.5 mls/hr IVPB Q8H GIOVANNY Rx#: [id number] Pressure bag 66 72 30 Sodium Chloride 0.9% 1, 240 240 60 000 ml @ 20 mls/hr IV . Q24H GIOVANNY Rx#:[id number] Intake, IV Titration 341.717 176.219 96.435 Amount Bumetanide 12 mg In 153.333 Dextrose 5% in Water 192 ml @ 0.5 MG/HR 10 mls/hr IV .Q24H GIOVANNY Rx#: [id number] Heparin Sod,Pork in 0.45% 188.384 176.219 96.435 NaCl 25,000 unit In 0.45 % NaCl 1 500ml.bag @ 14.9 UNITS/KG/HR 45.95 mls/hr IV .[id number] GIOVANNY Rx#: [id number] Oral 0 Tube Feeding 0 0 Output: Urine 1116 1055 895 Stool 1 Other: Voiding Method Indwelling Catheter Indwelling Catheter Indwelling Catheter ABP, PAP, CO, CI - Last Documented Arterial Blood Pressure 137/68 - Exam Physical exam 52-year-old male tracheostomy in place on mechanical vent support Lungs diminished anterior at the bases Heart S1-S2 audible regular Abdomen obese soft PEG tube no redness at site tube feeds to be initiated this afternoon nontender not distended Gonsales catheter in place Extremities bilateral pedal edema noted - Labs CBC & Chem 7: 09/24/18 04:47 09/24/18 04:47 Labs: Abnormal Lab Results - Last 24 Hours (Table) 09/24/18 09/24/18 09/24/18 Range/Units 00:00 04:47 04:47 WBC 12.7 H (3.8-10.6) k/uL RBC 3.10 L (4.30-5.90) m/uL Hgb 9.4 L (13.0-17.5) gm/dL Hct 29.3 L (39.0-53.0) % RDW 16.4 H (11.5-15.5) % Neutrophils # 10.0 H (1.3-7.7) k/uL APTT 96.6 H (22.0-30.0) sec ABG pH (7.35-7.45) ABG pCO2 (35-45) mmHg ABG pO2 (83-108) mmHg ABG HCO3 (21-25) mmol/L ABG Total CO2 (19-24) mmol/L ABG O2 Saturation (94-97) % BUN 72 H (9-20) mg/dL Creatinine 3.78 H (0.66-1.25) mg/dL Phosphorus 7.0 H (2.5-4.5) mg/dL Magnesium 2.4 H (1.6-2.3) mg/dL 09/24/18 09/24/18 Range/Units 04:47 07:45 WBC (3.8-10.6) k/uL RBC (4.30-5.90) m/uL Hgb (13.0-17.5) gm/dL Hct (39.0-53.0) % RDW (11.5-15.5) % Neutrophils # (1.3-7.7) k/uL APTT 42.2 H (22.0-30.0) sec ABG pH 7.34 L (7.35-7.45) ABG pCO2 49 H (35-45) mmHg ABG pO2 109 H (83-108) mmHg ABG HCO3 26 H (21-25) mmol/L ABG Total CO2 28 H (19-24) mmol/L ABG O2 Saturation 98.2 H (94-97) % BUN (9-20) mg/dL Creatinine (0.66-1.25) mg/dL Phosphorus (2.5-4.5) mg/dL Magnesium (1.6-2.3) mg/dL Assessment and Plan Assessment: Impression Present on admission acute hypoxic respiratory failure secondary to massive bilateral pulmonary emboli Status post cardiopulmonary arrest status post TPA treatment Acute metabolic encephalopathy possible anoxic brain injury not entirely ruled out History of an acute DVT right lower extremity Massive pulmonary emboli with right ventricular strain subsequent cardiac arrest Morbid obesity BMI 41.9 [id number] malnutrition status post PEG tube placement for nutritional support Plan Continue ICU management per the skin care technician Vent support per the skin care technician Will follow with you Start tube feedings this afternoon using the PEG tube tube feeds per recommendations of dietitian The above impression and plan of care have been discussed and directed by signing physician. Ella Vargas nurse practitioner acting as scribe for signing physician.
--- NOTE | 2018-09-24 13:04 | P.PN ---
Subjective Patient is seen in follow-up for acute kidney injury. His baseline creatinine is 1. Patient is on IV heparin for bilateral pulmonary embolism. He also suffered 2 episodes of cardiopulmonary arrest on September 09. He underwent tracheostomy and PEG tube placement on September 23. He also had significant lower extremity edema which has been improving with daily ultrafiltration and diuresis. He is maintained on Bumex drip and is nonoliguric. He is off Levophed. Due to volume overload and worsening renal function he was started on hemodialysis this admission. He has been tolerating hemodialysis well with ultrafiltration of near 4 L. Currently seen while undergoing hemodialysis. Dialysis access is not working well despite low blood flow. Vital signs are stable. Off Levophed. General: The patient appeared well nourished and normally developed. HEENT: Head exam is unremarkable. Neck is without jugular venous distension. Intubated. LUNGS: Breath sounds decreased. HEART: Rate and Rhythm are regular. First and second heart sounds normal. No murmurs, rubs or gallops. ABDOMEN: Abdominal exam reveals normal bowel sounds. Non-tender and non- distended. No evidence of peritonitis. EXTREMITITES: 2+ edema. Chronic skin changes noted. Objective - Vital Signs Vital signs: Vital Signs Temp 98.2 F 09/24/18 11:00 Pulse 110 H 09/24/18 12:07 Resp 20 09/24/18 11:00 BP 131/73 09/24/18 11:00 Pulse Ox 98 09/24/18 11:00 Intake & Output 09/23/18 09/24/18 09/24/18 18:59 06:59 18:59 Intake Total 947.717 488.219 236.435 Output Total 1117 1055 895 Balance -169.283 -566.781 -658.565 Weight 147.9 kg 147.9 kg Intake: IV 606 312 140 Piperacillin-Tazobactam 3 100 50 .375 gm In Dextrose/Water 1 50ml.bag @ 12.5 mls/hr IVPB Q8H [facility] Rx#: [id number] Pressure bag 66 72 30 Sodium Chloride 0.9% 1, 240 240 60 000 ml @ 20 mls/hr IV . Q24H [facility] Rx#:[id number] Intake, IV Titration 341.717 176.219 96.435 Amount Bumetanide 12 mg In 153.333 Dextrose 5% in Water 192 ml @ 0.5 MG/HR 10 mls/hr IV .Q24H [facility] Rx#: [id number] Heparin Sod,Pork in 0.45% 188.384 176.219 96.435 NaCl 25,000 unit In 0.45 % NaCl 1 500ml.bag @ 14.9 UNITS/KG/HR 45.95 mls/hr IV .[id number] [facility] Rx#: [id number] Oral 0 Tube Feeding 0 0 Output: Urine 1116 1055 895 Stool 1 Other: Voiding Method Indwelling Catheter Indwelling Catheter Indwelling Catheter ABP, PAP, CO, CI - Last Documented Arterial Blood Pressure 137/68 - Labs CBC & Chem 7: 09/24/18 04:47 09/24/18 04:47 Labs: Abnormal Lab Results - Last 24 Hours (Table) 09/24/18 09/24/18 09/24/18 Range/Units 00:00 04:47 04:47 WBC 12.7 H (3.8-10.6) k/uL RBC 3.10 L (4.30-5.90) m/uL Hgb 9.4 L (13.0-17.5) gm/dL Hct 29.3 L (39.0-53.0) % RDW 16.4 H (11.5-15.5) % Neutrophils # 10.0 H (1.3-7.7) k/uL APTT 96.6 H (22.0-30.0) sec ABG pH (7.35-7.45) ABG pCO2 (35-45) mmHg ABG pO2 (83-108) mmHg ABG HCO3 (21-25) mmol/L ABG Total CO2 (19-24) mmol/L ABG O2 Saturation (94-97) % BUN 72 H (9-20) mg/dL Creatinine 3.78 H (0.66-1.25) mg/dL Phosphorus 7.0 H (2.5-4.5) mg/dL Magnesium 2.4 H (1.6-2.3) mg/dL 09/24/18 09/24/18 Range/Units 04:47 07:45 WBC (3.8-10.6) k/uL RBC (4.30-5.90) m/uL Hgb (13.0-17.5) gm/dL Hct (39.0-53.0) % RDW (11.5-15.5) % Neutrophils # (1.3-7.7) k/uL APTT 42.2 H (22.0-30.0) sec ABG pH 7.34 L (7.35-7.45) ABG pCO2 49 H (35-45) mmHg ABG pO2 109 H (83-108) mmHg ABG HCO3 26 H (21-25) mmol/L ABG Total CO2 28 H (19-24) mmol/L ABG O2 Saturation 98.2 H (94-97) % BUN (9-20) mg/dL Creatinine (0.66-1.25) mg/dL Phosphorus (2.5-4.5) mg/dL Magnesium (1.6-2.3) mg/dL Assessment and Plan Plan: Assessment: 1. Acute kidney injury secondary to ATN secondary to hypotension and hemodynamic instability. Baseline creatinine is 1. No evidence of hydronephrosis noted on renal ultrasound. Currently hemodialysis dependent. 2. Bilateral pulmonary embolism status post TPA maintained on IV heparin. 3. Right lower extremity DVT. 4. Hypotension now off Levophed. Cortisol level normal. 5. Acute hypoxic respiratory failure secondary to PE. 6. Hyperphosphatemia secondary to acute kidney injury. 7. SVT now in sinus rhythm. Cardiology following. 8. Volume overload. Improved with ultrafiltration and diuresis. 9. Acute blood loss anemia with hemoglobin of 5.9 10/24 s/p pRBCs. Better. 10. Metabolic acidosis secondary to ACOSTA. Improved post-HD. 11. Hypokalemia from diuresis. Status post replacement. Better. Plan: Currently seen while undergoing hemodialysis. Maintain bumex drip. Maintain phoslo 3 times daily. Maintain tube feeds. Avoid nephrotoxins. Continue to monitor renal function and urine output. Discontinue dialysis catheter as it's not working well with high arterial pressures despite low blood flows. Patient will need a new dialysis catheter placed if there is further need for renal replacement therapy.
[2018-09-24] MEDS: HEPARIN SOD,PORK IN 0.45% NACL 25,000 UNIT in 0.45% NACL 1 500ML.BAG IV SCH (14:23)
[2018-09-24] MEDS: MULTIVITAMINS, THERA 1 EACH TAB PO SCH (14:37)
--- NOTE | 2018-09-24 15:18 | P.PN ---
Subjective Progress Note Date: 09/24/18 Principal diagnosis: Acute hypoxic respiratory failure secondary to massive bilateral pulmonary embolism. Status post cardiopulmonary arrest and status post TPA treatment. On 09/14/2018, I am seeing this patient for a follow-up in the intensive care unit. The patient was in following a massive but the pulmonary embolism, right ventricular enlargement and right ventricular strain pattern with subsequent hemodynamic collapse and cardiac arrest. The patient is post TPA infusion at time of the code. The patient is currently on IV heparin. In terms of his breathing, the patient is intubated on a mechanical ventilator. The patient is currently on an assist-control mode at the rate of 32 with a tidal volume of 500 and FiO2 of 50% with a PEEP of 10. The chest x-ray from today shows adequate positioning of 82. There is some atelectatic changes and infiltration of the right lung base. Meanwhile, the blood gases from today showed a pH of 7.32 with a pCO2 of 48 and pO2 of 116 and this was done on the above-mentioned ventilator settings. No significant orotracheal secretions. Breath other are equal and bilateral. Airway pressures are not elevated. Hemodynamically, the patient is on pressors at 3 mics of norepinephrine infusion for blood pressure support. He has been aggressively resuscitated IV fluids and a noted significant amount of weight gain over the past several days. The patient was given a dose of Lasix yesterday. In addition the patient was having episodes of SVTs throughout his current hospitalization and he was treated with adenosine and currently is on amiodarone orally 5 mg by mouth twice a day and his cardiac rhythm is normalized and his in sinus rhythm. Echocardiogram, the patient has an ejection fraction of 6065%. The rhythm to Doxil septal motion abnormality consistent with right ventricular volume/strain pattern. Of interest also is development of acute kidney injury. The patient came in initially with a normal renal function. Subsequently creatinine came up to 1.7 and currently is up to 2.41. He was given a dose of Lasix yesterday and none since yesterday. The patient is nonoliguric. The net fluid balance over the past 24 hours is +825 mL. He is having loose liquidy bowel movement. He is currently on vital 1.2 at the rate of 35 mL an hour. He is sedated with Diprivan. Lower oximetry is a swallow with extensive swelling of the right lower extremity which also has a DVT. The patient is having on and off low- grade fever and the patient is currently on IV Ancef. Most recent hemoglobin is at 8.0. White cell count is not elevated at 7.1. He remains on IV heparin regarding the massive bilateral pulmonary embolism. Reevaluated today on 09/21/2018, patient remains off sedation for the last 2 days, minimal slow improvement in his overall mentation, patient is lethargic, arousable, follows very simple commands, like squeezing hands and wiggling toes. He seems to be profoundly weak, unable to move extremities against gravity. His ventilator settings are tidal volume of 500 assist control rate of 20 FiO2 of 40% and PEEP of 5. ABG this morning showed a pO2 of 115 pCO2 of 51 pH of 7.33. His labs were all reviewed including WBC count of 17.3 hemoglobin of 9.0. Electrolytes were noted to be relatively normal however his BUN is 97 creatinine is 4.82, patient remains on hemodialysis via a dialysis catheter in the right groin. Chest x-ray continues to show evidence of congestive heart failure possibly basilar effusions noted. Patient was reevaluated today on 09/22/2018, remains on mechanical ventilation, remained generally weak, follows very simple instructions but extremely weak, patient does not have a good gag reflex, cannot maintain a good eye contact, cannot raise his arms or legs against gravity, and he is profoundly weak. His ventilator settings are tidal volume of 500 assist control rate of 20 FiO2 of 40 % and PEEP of 5. Chest x-ray is showing now some component of interstitial edema. Pneumonia is not entirely ruled out. ABG this morning showed a pO2 of 99 pCO2 of 49 pH of 7.46. Renal functioning remains poor, BUN is 88 creatinine 4.68. WBC count is 15.8 hemoglobin is 8.8. Apparently the patient sustained acute kidney injury secondary to ATN from hypotension. Remains hemodialysis dependent. Patient remains on IV heparin and he was initially given TPA. Presently in sinus rhythm. And clearly the chest x-ray is consistent with mild pulmonary edema. Patient was reevaluated today on 09/23/2018, remains on the same ventilatory settings, patient is hemodynamically stable, remains on heparin, Mental status and neurological status is basically about the same, patient opens eyes, follows very simple instructions, but he is profoundly weak. Cannot even raise his hands or legs against gravity. He could squeeze hands, wiggling toes, and he does not maintain a good eye contact. He is scheduled to have a PEG tube placement and tracheostomy today. His heparin has been on hold for the last 4 hours. All his labs were reviewed, chest x-ray was also reviewed. Patient remains on hemodialysis on a daily basis as per nephrology. ABG today showed a pO2 of 103 pCO2 of 54 pH of 7.31. Chest x-ray continues to show small bilateral pleural effusions mostly consistent with pulmonary edema and fluid overload secondary to his renal failure and recent cardiopulmonary arrest. Strongly doubt pneumonia. Reevaluated today on 09/24/2018, patient remains on the same ventilatory settings , mental status is basically about the same, overall neurological status is basically the same, patient underwent tracheostomy and PEG tube placement yesterday. Both procedures were uneventful. Patient was placed back on heparin last night, and he remains on heparin. However nephrology is having issues with a dialysis catheter, and may have to come out, and we may have to hold heparin again. I instructed the nurses to hold the heparin for a couple of hours before the catheter is removed, and if no plans to place a dialysis catheter again patient should be started on Xarelto instead. However if they are planning to place the catheter again, patient will need to go back on heparin after the catheter is removed. Labs were reviewed, pO2 is 109 pCO2 of 49 pH of 7.34. CBC is relatively unremarkable, WBC count is 12.7 hemoglobin is 9.4. Renal profile remains poor with BUN of 72 creatinine of 3.78. Patient is clinically about the same, no change whatsoever except now he has a tracheostomy and a PEG tube. Opens eyes, follows very simple instructions mostly wiggling toes and squeezing hands, otherwise he is profoundly weak. Objective - Vital Signs Vital signs: Vital Signs Temp 98.2 F 09/24/18 11:00 Pulse 96 09/24/18 14:00 Resp 12 09/24/18 14:00 BP 137/77 09/24/18 14:00 Pulse Ox 98 09/24/18 14:00 Intake & Output 09/23/18 09/24/18 09/24/18 18:59 06:59 18:59 Intake Total 947.717 488.219 531.781 Output Total 1117 1055 4995 Balance -169.283 -566.781 -4463.219 Weight 147.9 kg 147.9 kg Intake: IV 606 312 208 Piperacillin-Tazobactam 3 100 50 .375 gm In Dextrose/Water 1 50ml.bag @ 12.5 mls/hr IVPB Q8H [facility] Rx#: [id number] Pressure bag 66 72 48 Sodium Chloride 0.9% 1, 240 240 110 000 ml @ 20 mls/hr IV . Q24H [facility] Rx#:[id number] Intake, IV Titration 341.717 176.219 323.781 Amount Bumetanide 12 mg In 153.333 Dextrose 5% in Water 192 ml @ 0.5 MG/HR 10 mls/hr IV .Q24H [facility] Rx#: [id number] Heparin Sod,Pork in 0.45% 188.384 176.219 323.781 NaCl 25,000 unit In 0.45 % NaCl 1 500ml.bag @ 14.9 UNITS/KG/HR 45.95 mls/hr IV .[id number] [facility] Rx#: [id number] Oral 0 Tube Feeding 0 0 Output: Urine 1116 1055 995 Stool 1 Other 4000 Other: Voiding Method Indwelling Catheter Indwelling Catheter Indwelling Catheter ABP, PAP, CO, CI - Last Documented Arterial Blood Pressure 137/68 - Exam Physical Exam: Revealed a 52-year-old white male morbidly obese, on mechanical ventilation, Head: Atraumatic, normocephalic. Tracheostomy tube is intact. PERRLA, EOMI, no icterus. HEENT:[ Short obese neck Neck is supple.] [No neck masses.] [No thyromegaly.] [ No JVD.] Tracheostomy is intact. Chest: [Diminished breath sounds at the bases especially at the left base, no rhonchi no wheezes noted.. Cardiac Exam: [Normal S1 and S2, no S3 gallop, no murmur.] Abdomen: [Soft, nontender, no megaly, no rebound, no guarding, normal bowel sounds.] Extremities: Trace of bipedal edema is noted.]. Good pulses bilaterally. Neurological Exam: PERRLA, EOMI, no nystagmus, no facial asymmetry, arousable but lethargic, no purposeful movement, no gag reflex noted today. Psychiatric: Could not be assessed. Lymphatics: No lymphadenopathy. Skin: No rashes, significant improvement in lower extremity swelling bilaterally. - Labs CBC & Chem 7: 09/24/18 04:47 09/24/18 04:47 Labs: Abnormal Lab Results - Last 24 Hours (Table) 09/24/18 09/24/18 09/24/18 Range/Units 00:00 04:47 04:47 WBC 12.7 H (3.8-10.6) k/uL RBC 3.10 L (4.30-5.90) m/uL Hgb 9.4 L (13.0-17.5) gm/dL Hct 29.3 L (39.0-53.0) % RDW 16.4 H (11.5-15.5) % Neutrophils # 10.0 H (1.3-7.7) k/uL APTT 96.6 H (22.0-30.0) sec ABG pH (7.35-7.45) ABG pCO2 (35-45) mmHg ABG pO2 (83-108) mmHg ABG HCO3 (21-25) mmol/L ABG Total CO2 (19-24) mmol/L ABG O2 Saturation (94-97) % BUN 72 H (9-20) mg/dL Creatinine 3.78 H (0.66-1.25) mg/dL Phosphorus 7.0 H (2.5-4.5) mg/dL Magnesium 2.4 H (1.6-2.3) mg/dL 09/24/18 09/24/18 09/24/18 Range/Units 04:47 07:45 14:15 WBC (3.8-10.6) k/uL RBC (4.30-5.90) m/uL Hgb (13.0-17.5) gm/dL Hct (39.0-53.0) % RDW (11.5-15.5) % Neutrophils # (1.3-7.7) k/uL APTT 42.2 H 97.4 H (22.0-30.0) sec ABG pH 7.34 L (7.35-7.45) ABG pCO2 49 H (35-45) mmHg ABG pO2 109 H (83-108) mmHg ABG HCO3 26 H (21-25) mmol/L ABG Total CO2 28 H (19-24) mmol/L ABG O2 Saturation 98.2 H (94-97) % BUN (9-20) mg/dL Creatinine (0.66-1.25) mg/dL Phosphorus (2.5-4.5) mg/dL Magnesium (1.6-2.3) mg/dL Assessment and Plan Assessment: Impression: 1 acute hypoxic respiratory failure secondary to massive bilateral pulmonary embolism. Status post cardiopulmonary arrest, status post TPA treatment, remains on heparin. Remains on mechanical ventilation. 2 massive pulmonary embolism with right ventricular strain and subsequent cardiac arrest. No clear-cut evidence of anoxic brain injury, however patient may have some encephalopathy related to his cardiopulmonary arrest and anoxic injury. Will likely consider neurological evaluation today after his tracheostomy. 3 acute metabolic encephalopathy, possibility of anoxic brain injury is not entirely ruled out. 4 acute kidney injury secondary to hypotension and acute tubular necrosis, remains on dialysis. However when having issues with a dialysis catheter, may have to be removed, nephrology is still debating whether to replace it or possibly discontinue dialysis. 5 acute deep vein thrombosis of right lower extremity, presently on heparin. 6 chronic normocytic anemia, likely multifactorial. 7 history of smoking 8 morbid obesity with BMI of 46.5 9 possible aspiration pneumonia, as noted on the chest x-ray, but not truly confirmed, chest x-ray is showing improvement with bibasilar atelectasis especially on the left side. 10 status post cardiopulmonary arrest secondary to massive pulmonary embolism. 11 status post tracheostomy and PEG tube placement on 09/23/2018. 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 Will definitely require long-term physical therapy, and long-term facility for rehabilitation. Recommendation: Continue present supportive care measures, will request neurology consultation, will request select care specialty evaluation, would hold heparin few hours before the dialysis catheter is removed, however the patient does not need to have a dialysis catheter placed again we will likely recommend Xarelto. Recommended physical therapy evaluation. Restart enteral feeding via PEG tube. We will also give the patient trialed a pressure support of 8 and CPAP today as much as tolerated.Discussed his condition with his sister at bedside. Critical care time is 35 minutes. Time with Patient: Greater than 30
--- NOTE | 2018-09-24 15:24 | XR ---
EXAMINATION TYPE: XR chest 1V portable DATE OF EXAM: 09/24/2018 COMPARISON: 09/23/2019 HISTORY: Shortness of breath TECHNIQUE: Single frontal view of the chest is obtained. FINDINGS: Tracheostomy tube is noted in position. Left-sided PICC line seen. There is bilateral inte rstitial process with consolidation and pleural effusion. Heart is enlarged. No sizable pneumothorax. ET and NG tube removed. IMPRESSION: 1. Bilateral pleural-parenchymal changes are stable correlate for CHF versus pneumonia. 2. Tracheostomy tube is now seen in position.
[2018-09-24] MEDS: BUMETANIDE 12 MG in DEXTROSE 5% IN WATER 192 ML IV SCH ×2 (18:08)
--- NOTE | 2018-09-24 18:10 | P.PN ---
Subjective Progress Note Date: 09/23/18 Progress note being dictated for Dr. Culp. Interval history:Massive pulmonary embolism Acute cardiopulmonary arrest status post CPR and intubation Patient is a 52-year-old male with a known history of chronic bilateral lower extremity lymphedema and history of pulmonary embolism about a year ago, currently not taking Coumadin for the past 6-8 months came to ER with complaints of acute worsening shortness of breath since yesterday. Patient says that he has been having shortness of breath for the last couple of weeks but suddenly got worse yesterday. Patient was told that his DVT and pulmonary embolus was secondary to sedentary lifestyle and sleeping in a sitting position. Patient states he took his Coumadin for about 6 months. He was so several follow-up appointment in November for repeat evaluation however he did not follow-up with that appointment. He stopped his Coumadin in November. Denies any constitutional symptoms. Patient feels much more short of breath with exertion. Chest pain. He feels as though both of his legs are much more edematous than usual suspicion is right lower extremity. Lower extremity duplex scan showed acute DVT right popliteal vein through the proximal calf veins CTA chest showed massive bilateral pulmonary embolism with right ventricular enlargement suggestive of right ventricular strain correlate clinically. A 7 mm and 4 mm right lower lobe pulmonary nodule not seen previous exam subpleural in location could be inflammatory. WBC 14.1 Troponin 0.258 Potassium 5.3 On 09/09/2018 Patient had a brief episode of cardiopulmonary arrest this morning and developed respiratory distress. Subsequently patient was intubated and was transferred to MICU. Patient had a difficult intubation. Patient was given TPA by ER physician. Patient also received multiple doses of epinephrine and sodium bicarbonate. Patient is currently on Levophed drip. Being continued on heparin drip as well. Patient is currently sedated. Initial ABG showed pH 7.0, pCO2 80, pO2 118 Patient was seen by cardiology and pulmonary. 09/10/2018 Patient is currently mechanically ventilated and sedated. Patient is being continued on heparin drip. Continues to be on Levothroid drip. Patient had SVT during cardiopulmonary arrest. Patient was started on amiodarone.. Otherwise hemoglobin dropped to 10.7 today. Continues to have bloody secretions which is being suctioned. Chest x-ray showed bilateral pleural effusion and consolidation. AST 559 and ALT 509 albumin 2.6. Cultures negative so far. Creatinine 1.76. 09/11/2018 52-year-old gentleman with a history of massive bilateral pulmonary embolism right ventricular enlargement and right heart strain. He did receive systemic TPA and was on IV heparin until yesterday which time was turned off because of ongoing bleeding. The patient's overall prognosis remains very guarded. The patient remains on ventilator. Arterial blood gases show a PaO2 of 113 PaCO2 38 and a pH of 7.4. The patient is on saline at 75 mL an hour; Heparin was discontinued yesterday because of ongoing bleeding from the cavity and NG tube. In addition, he's had about a 1 g hemoglobin drop on a daily basis. This morning's hemoglobin is 9.9. 09/12/2018; The patient's overall prognosis remains very guarded. The patient was given a daily interruption of sedation today but could not have a spontaneous breathing trial because he became very tachypnea with respiratory rates above 40. Currently, he is on the volume assist control mode rate of 32, tidal volume 500 , FiO2 35% to be increased to 40% and 5 of PEEP. Arterial blood gases showed a PaO2 of 59 a PaCO2 of 43 and a pH 7.37. That was on 35% FiO2. In addition, the patient's on norepinephrine at 7 mics per minute, propofol at 65 mcg/kg/m, saline IV at 75 mL an hour, heparin via weightbase protocol and vital 1.2 at goal. Chest x-ray shows bilateral effusions with basilar atelectasis and/or infiltrates. On 09/15/2018 Patient currently on mechanical ventilation with assist control and sedation. Patient is being continued on IV heparin. Hemoglobin is 7.5. Renal function slightly worsened with increasing creatinine level 3.56. No active bleeding noted. Chest x-ray showed bilateral pleural effusion and pulmonary vascular congestion. Patient was given a dose of Lasix previously. Patient is currently on antibiotics in the form of Zosyn. 09/16/2018 Patient was seen and examined in the MICU. Currently maintained on mechanical ventilator. Hemoglobin dropped to 5.9 today. 2 units of PRBC was ordered. No signs of active bleeding noted. Patient is being continued on IV heparin. Chest x-ray showed evidence of bilateral consolidation and pleural effusion. Correlate for pulmonary edema and diffuse pneumonia. Currently on Lasix drip. Creatinine level increased to 3.89 today. Otherwise patient is getting empiric antibiotics for possible pneumonia aspiration likely. Patient is being followed by pulmonary cardiology and nephrology. 09/17/2018 Patient is currently on mechanical ventilator. Chest x-ray showed possible fluid overload/pneumonia. Creatinine is trending up at 4.7 today. Hemoglobin is 7.6. Continued on IV heparin. held for permacath placement. Nephrology is planning for hemodialysis. No fever no chills. 09/20/2018 Patient is on mechanical ventilator. Patient is off sedation and is able to blink his eyes. Patient is being continued on hemodialysis. Patient had 3 hemodialysis sessions last one yesterday. Continued on IV antibiotics the form of Zosyn. Leukocytosis slightly improved to 23.7, hemoglobin 9.5 No other acute overnight issues. 09/21/2018 Patient remained on mechanical ventilator. Off sedation and also support. Patient does have slight improvement in mental status. Patient is extremely lethargic and follows simple commands. Hemoglobin is 9.0. Leukocytosis is improved to 17.3. Patient is getting hemodialysis today. Creatinine level IV.82. Chest x-ray showed evidence of congestive heart failure and pleural effusion noted. Patient is afebrile. Blood pressure is maintained. Active Medications Active Medications Generic Name Dose Route Start Last Admin Trade Name Freq PRN Reason Stop Dose Admin Albuterol/Ipratropium 3 ml 09/09/18 09:37 Duoneb 0.5 Mg-3 Mg/3 Ml Soln INHALATION RT-Q2H PRN Shortness Of Breath Or Wheezing Albuterol/Ipratropium 3 ml 09/09/18 12:00 09/20/18 23:21 Duoneb 0.5 Mg-3 Mg/3 Ml Soln INHALATION 3 ml RT-Q4H GIOVANNY Administration Amiodarone HCl 200 mg 09/20/18 21:00 09/20/18 22:29 Cordarone PO 200 mg BID GIOVANNY Administration Calcium Acetate 667 mg 09/17/18 07:30 09/20/18 17:14 Phoslo PO 667 mg TID-W/MEALS GIOVANNY Administration Chlorhexidine Gluconate 15 ml 09/09/18 21:00 09/20/18 22:29 Peridex MUCOUS MEM 15 ml BID GIOVANNY Administration Heparin Sodium (Porcine) 0 unit 09/08/18 10:49 09/09/18 04:34 Heparin IV 4,000 unit PER PROTOCOL PRN Administration Low PTT Protocol Hydralazine HCl 10 mg 09/18/18 21:19 09/20/18 04:53 Apresoline IVP 10 mg Q4HR PRN Administration Blood Pressure - High Hydralazine HCl 25 mg 09/20/18 09:30 09/20/18 22:29 Apresoline PO 25 mg QID GIOVANNY Administration Hydromorphone HCl 1 mg 09/10/18 17:33 09/20/18 18:01 Dilaudid IVP 1 mg Q1HR PRN Administration Mild to Moderate Pain Hydromorphone HCl 2 mg 09/10/18 17:33 09/20/18 21:18 Dilaudid IVP 2 mg Q1HR PRN Administration Moderate to Severe Pain Heparin Sodium/Sodium Chloride 500 mls @ 45.95 mls/hr 09/08/18 11:00 11:50 25,000 unit/ Sodium Chloride IV 16 units/kg/hr .[id number] GIOVANNY 49.35 mls/hr Administration Protocol 14.9 UNITS/KG/HR Propofol 1,000 mg/ IV Solution 100 mls @ 0 mls/hr 09/09/18 09:45 09/18/18 09: 02 IV 0 mcg/kg/min .Q0M GIOVANNY 0 mls/hr Titration Protocol Titrate Norepinephrine Bitartrate 16 250 mls @ 0 mls/hr 09/09/18 10:00 09/15/18 14:40 mg/ Sodium Chloride IV 0 mcg/min .Q0M GIOVANNY 0 mls/hr Titration Protocol Titrate Sodium Chloride 1,000 mls @ 20 mls/hr 09/10/18 12:45 09/20/18 22:31 Saline 0.9% IV 20 mls/hr .Q24H GIOVANNY Administration Acetaminophen 1,000 mg/ IV 100 mls @ 400 mls/hr 09/13/18 20:44 09/13/18 21:55 Solution IVPB 400 mls/hr ONCE PRN Administration Fever>101 Piperacillin/Tazobactam/ 50 mls @ 12.5 mls/hr 09/14/18 10:00 09/20/18 18:01 Dextrose 3.375 gm/ IV Solution IVPB 12.5 mls/hr Q8H GIOVANNY Administration Bumetanide 12 mg/ Dextrose/ 240 mls @ 10 mls/hr 09/18/18 10:30 09/20/18 09:56 Water IV 0.5 mg/hr .Q24H GIOVANNY 10 mls/hr Administration 0.5 MG/HR Insulin Aspart 0 unit 09/10/18 06:00 09/20/18 18:08 Novolog SQ Not Given Q6HR [facility] Protocol Miscellaneous Information 1 each 09/10/18 16:16 Potassium Per Protocol MISCELLANE DAILY PRN Per Protocol Protocol Miscellaneous Information 1 each 09/10/18 22:11 Magnesium Per Protocol MISCELLANE DAILY PRN Per Protocol Protocol Multivitamins 1 each 09/09/18 12:00 09/20/18 11:49 Theragran PO 1 each DAILY@1200 GIOVANNY Administration Naloxone HCl 0.2 mg 09/08/18 15:00 Narcan IV Q2M PRN Opioid Reversal Pantoprazole Sodium 40 mg 09/10/18 09:00 09/20/18 08:25 Protonix IVP 40 mg DAILY GIOVANNY Administration 09/22/2018 continues on mechanical ventilation, FiO2 40%/+5 of PEEP. Maintained on heparin drip, Bumex drip and daily hemodialysis. Tolerating breathing trial today, currently up to 1-1/2 hours. Telemetry sinus rhythm. Chest x-ray reporting possible CHF with pleural effusions, possible pneumonia. Staff reports patient following commands but not tracking with eyes.significant generalized weakness .Brain CT non acute. Creatinine 4.68, hemoglobin 8.8. 09/23/2018 remains vent dependent, FiO2 40%/+5 of PEEP. Chest x-ray reporting persistent small bilateral pleural effusions consistent with pulmonary edema/ fluid overload , possible pneumonia .Scheduled for tracheostomy and PEG tube placement today .Maintained on heparin drip, daily hemodialysis. Opens eyes to his name, but does not make eye contact, no tracking. follows simple commands. Significant weakness. Objective - Vital Signs Vital signs: Vital Signs Temp 98.8 F 09/23/18 20:00 Pulse 81 09/23/18 21:14 Resp 20 09/23/18 21:00 BP 138/80 09/23/18 21:00 Pulse Ox 100 09/23/18 21:00 Intake & Output 09/23/18 09/23/18 09/24/18 06:59 18:59 06:59 Intake Total 517 947.717 78 Output Total 925 1117 120 Balance -408 -169.283 -42 Weight 147.9 kg Intake: IV 312 606 78 Piperacillin-Tazobactam 3 100 .375 gm In Dextrose/Water 1 50ml.bag @ 12.5 mls/hr IVPB Q8H GIOVANNY Rx#: [id number] Pressure bag 72 66 18 Sodium Chloride 0.9% 1, 240 240 60 000 ml @ 20 mls/hr IV . Q24H GIOVANNY Rx#:[id number] Intake, IV Titration 0 341.717 Amount Bumetanide 12 mg In 153.333 Dextrose 5% in Water 192 ml @ 0.5 MG/HR 10 mls/hr IV .Q24H GIOVANNY Rx#: [id number] Heparin Sod,Pork in 0.45% 0 188.384 NaCl 25,000 unit In 0.45 % NaCl 1 500ml.bag @ 14.9 UNITS/KG/HR 45.95 mls/hr IV .[id number] GIOVANNY Rx#: [id number] Oral 0 Tube Feeding 175 0 0 Other 30 Output: Urine 925 1116 120 Stool 1 Other: Voiding Method Indwelling Catheter Indwelling Catheter ABP, PAP, CO, CI - Last Documented Arterial Blood Pressure 165/69 - Exam Patient is lying in the bed comfortably, currently intubated HEENT: Normocephalic. Neck is supple. Pupils reactive. Nostrils clear. Oral cavity is moist. Neck unable to assess JVD-short neck, supple, carotid bruits, or thyromegaly. CHEST EXAMINATION: Trachea is central. Symmetrical expansion. Bibasilar diminished air entry and crackles present. No rhonchi, no wheezing CARDIAC: Normal S1, S2 with no gallops. No murmurs ABDOMEN: Soft. Bowel sounds normal. No organomegaly. No abdominal bruits. Extremities: Bilateral lower extremity lymphedema with 3+ edema. No clubbing or cyanosis. Neurologically/Psychiatric . Patient is awake. Extremity weak. Unable to assess, patient intubated. Skin: No rash or skin lesions except above. - Labs CBC & Chem 7: 09/24/18 04:47 09/24/18 04:47 Labs: Abnormal Lab Results - Last 24 Hours (Table) 09/23/18 09/23/18 09/23/18 Range/Units 00:31 00:43 05:00 WBC 11.7 H (3.8-10.6) k/uL RBC 3.00 L (4.30-5.90) m/uL Hgb 8.9 L (13.0-17.5) gm/dL Hct 28.2 L (39.0-53.0) % RDW 16.6 H (11.5-15.5) % Neutrophils # 9.3 H (1.3-7.7) k/uL APTT 66.2 H (22.0-30.0) sec ABG pH (7.35-7.45) ABG pCO2 (35-45) mmHg ABG HCO3 (21-25) mmol/L ABG Total CO2 (19-24) mmol/L ABG O2 Saturation (94-97) % BUN (9-20) mg/dL Creatinine (0.66-1.25) mg/dL POC Glucose (mg/dL) 100 H (75-99) mg/dL Phosphorus (2.5-4.5) mg/dL Magnesium (1.6-2.3) mg/dL 09/23/18 09/23/18 Range/Units 05:00 07:43 WBC (3.8-10.6) k/uL RBC (4.30-5.90) m/uL Hgb (13.0-17.5) gm/dL Hct (39.0-53.0) % RDW (11.5-15.5) % Neutrophils # (1.3-7.7) k/uL APTT (22.0-30.0) sec ABG pH 7.31 L (7.35-7.45) ABG pCO2 54 H (35-45) mmHg ABG HCO3 27 H (21-25) mmol/L ABG Total CO2 29 H (19-24) mmol/L ABG O2 Saturation 97.3 H (94-97) % BUN 77 H (9-20) mg/dL Creatinine 3.82 H (0.66-1.25) mg/dL POC Glucose (mg/dL) (75-99) mg/dL Phosphorus 6.5 H (2.5-4.5) mg/dL Magnesium 2.4 H (1.6-2.3) mg/dL Assessment and Plan Assessment: Acute cardiopulmonary arrest likely due to pulmonary embolism. Status post CPR and spontaneous return of circulation. Currently mechanical ventilator - dependent. Acute hypercapnic, hypoxic respiratory failure secondary to massive bilateral pulmonary embolism. Currently mechanical ventilator -dependent Massive pulmonary embolism with right ventricular strain. Patient was given TPA during CPR Acute hypotension . S/P pressor support. 2-D echocardiogram showed normal LV function Pulmonary edema Possible right lower lobe pneumonia Nonoliguric acute kidney injury due to ATN. Started on hemodialysis during this admission. Acute on chronic anemia. Possible acute blood loss anemia Elevated troponin level secondary to right ventricular strain Acute lower extremity DVT Family history of pulmonary embolism in his brother Recent history of pulmonary embolism about a year ago. Stopped taking Coumadin since November 2017 Previous history of smoking Bilateral lower extremity chronic lymphedema Morbid obesity with BMI 43.7 Seborrheic dermatitis history Anxiety Plan: Continue on current medication regime ,monitoring and symptomatic treatment. Tracheostomy and PEG tube placement scheduled for today.Daily hemodialysis as per nephrology. Neurology consult in place, recommendations pending. Sister updated at bedside. Prognosis guarded given multiple complex medical issues. Further recommendations to follow The impression and plan of care has been dictated as directed. : I performed a history and examination of this patient, discussed the same with the dictator. I agree with the dictator's note ,documented as a scribe. Any additional findings or plans will be noted.
[2018-09-24 18:13] LABS: Glucose,Whole Blood 101 mg/dL (75-99)
[2018-09-24] MEDS: RIVAROXABAN 15 MG TAB PO SCH (22:16)
--- NOTE | 2018-09-25 00:58 | P.CNNES ---
History of Present Illness Consult date: 09/24/18 Reason for Consult: Patient with hypoxic respiratory failure and diffuse encephalopathy. History of Present Illness: This patient is a 52-year-old right-handed white male who was admitted to [facility] back on 09/08/2018 for complaints of shortness of breath. Patient has a history of lymphedema in deep vein thrombosis as well as pulmonary embolus in the past. He was diagnosed with pulmonary embolus last year and treated with Coumadin for a total of 6 months. The cause of his DVT and pulmonary embolism at the time was felt to be secondary to a sedentary lifestyle in sleeping and is sitting upright position. Due to his symptoms of severe shortness of breath he was brought back to the emergency room and was seen in the ER on 09/08/2018. He underwent Doppler ultrasound of the lower extremities and was found to have an acute right lower extremity DVT. Computed tomography scan of the chest with angiogram showed a massive bilateral pulmonary embolism suggesting a saddle embolism. Patient was started on IV heparin protocol and apparently shortly after this he went into a full cardiac arrest the next day on 09/09/2018. He required a prolonged resuscitation as he was a very difficult endotracheal tube placement procedure. Special procedure needed to be done by anesthesia to place endotracheal tube. He was then transferred to the intensive care unit where he was been closely monitored ever since. Due to the bilateral pulmonary embolus he was given TPA. He does have a strong family history of clotting disorder as well. He had failure to wean and did require a tracheostomy and PEG tube placement which was performed yesterday. He has not shown much improvement in his neurological status ever since admission to the ICU. His last CAT scan of the brain was done on 2017 which revealed no definite acute process. He has remained in the intensive care unit and is shown only slight improvement in his overall mental status. According to the ICU nursing staff earlier this morning he would seem to recognize family but had very little overall improvement in his cognition. We have recommended a repeat computed tomography scan of the brain to be done tomorrow. He is undergoing hemodialysis as he has acute tubular necrosis with renal failure. Apparently there is a very strong family history of coagulation disorder. We have recommended a consultation with hematology for further evaluation of this condition. The patient remains on the ventilator. He does follow only simple commands. He is able to squeeze both handgrips but weakly on command. Due to his altered mental status neurology is now been consulted for further evaluation and recommendations. Review of Systems ROS unobtainable: due to endotracheal tube Constitutional: Denies chills, Denies fever Eyes: denies blurred vision, denies pain Ears, nose, mouth and throat: Denies headache, Denies sore throat Cardiovascular: Denies chest pain, Denies shortness of breath Respiratory: Denies cough Gastrointestinal: Denies abdominal pain, Denies diarrhea, Denies nausea, Denies vomiting Musculoskeletal: Denies myalgias Integumentary: Denies pruritus, Denies rash Neurological: Reports aphasia, Reports change in mentation, Reports change in speech, Reports lack of coordination, Reports motor disturbance, Denies numbness , Denies weakness Psychiatric: Denies anxiety, Denies depression Endocrine: Denies fatigue, Denies weight change Past Medical History Past Medical History: Deep Vein Thrombosis (DVT), Pulmonary Embolus (PE) Additional Past Medical History / Comment(s): x-smoker, seborrheic dermatitits, keyur leg lympg edema, anxiety History of Any Multi-Drug Resistant Organisms: None Reported Past Surgical History: Cholecystectomy, Hernia Repair Additional Past Surgical History / Comment(s): left achillies tendon repair 1974 , umb hernia repair Past Anesthesia/Blood Transfusion Reactions: No Reported Reaction Smoking Status: Former smoker - Past Family History Brother(s) Family Medical History: Pulmonary Embolus Additional Family Medical History / Comment(s): CABG Mother Family Medical History: COPD, Pneumonia Additional Family Medical History / Comment(s): non-smoker. at age 89 Father Family Medical History: Myocardial Infarction (MS) Additional Family Medical History / Comment(s): smoker, mi - age 64 Medications and Allergies Home Medications Medication Instructions Recorded Confirmed Type Multivitamin,Therapeutic [Thera] 1 tab PO DAILY 09/08/18 09/08/18 History Naproxen Sodium [Aleve] 220 mg PO DAILY 09/08/18 09/08/18 History Allergies Allergy/AdvReac Type Severity Reaction Status Date / Time No Known Allergies Allergy Verified 09/08/18 11:26 Physical Examination - Vital Signs Vital Signs: Vital Signs Temp Pulse Resp BP Pulse Ox 09/24/18 19:56 99 09/24/18 18:00 89 26 H 139/64 97 09/24/18 17:00 107 H 15 142/79 96 09/24/18 16:12 92 09/24/18 16:00 98.5 F 93 15 126/66 98 09/24/18 15:58 106 H 09/24/18 15:00 97 18 157/80 98 09/24/18 14:00 96 12 137/77 98 09/24/18 13:00 99 17 129/69 98 09/24/18 12:07 110 H 09/24/18 12:00 112 H 17 130/74 99 09/24/18 11:44 94 09/24/18 11:00 98.2 F 82 20 131/73 98 09/24/18 10:00 98 29 H 161/78 98 09/24/18 09:00 91 27 H 149/73 99 09/24/18 08:16 95 09/24/18 08:00 98.4 F 89 20 134/69 98 09/24/18 07:52 80 09/24/18 07:00 86 16 137/64 97 09/24/18 06:00 108 H 24 131/63 99 09/24/18 05:00 78 18 113/64 99 09/24/18 04:00 98.8 F 75 16 122/63 96 09/24/18 03:28 78 09/24/18 03:09 79 09/24/18 03:00 79 16 129/58 95 09/24/18 02:00 85 18 126/70 97 09/24/18 01:00 103 H 34 H 126/70 96 09/24/18 00:00 98.8 F 80 20 121/65 98 09/23/18 23:55 82 21 121/65 98 09/23/18 23:22 81 09/23/18 23:07 79 09/23/18 23:00 80 22 136/78 97 09/23/18 22:00 80 20 98 09/23/18 21:14 81 09/23/18 21:00 77 20 138/80 100 09/23/18 20:55 81 Intake and Output 09/24/18 09/24/18 09/24/18 06:59 14:59 22:59 Intake Total 384.219 771.781 198 Output Total 820 4995 175 Balance -435.781 -4223.219 23 Intake: IV 208 208 99 Piperacillin-Tazobactam 3 50 .375 gm In Dextrose/Water 1 50ml.bag @ 12.5 mls/hr IVPB Q8H [facility] Rx#: [id number] Pressure bag 48 48 24 Sodium Chloride 0.9% 1, 160 110 75 000 ml @ 20 mls/hr IV . Q24H [facility] Rx#:[id number] Intake, IV Titration 176.219 563.781 50 Amount Bumetanide 12 mg In 240 Dextrose 5% in Water 192 ml @ 0.5 MG/HR 10 mls/hr IV .Q24H [facility] Rx#: [id number] Heparin Sod,Pork in 0.45% 176.219 323.781 NaCl 25,000 unit In 0.45 % NaCl 1 500ml.bag @ 14.9 UNITS/KG/HR 45.95 mls/hr IV .[id number] [facility] Rx#: [id number] Sodium Chloride 0.9% 500 50 ml 500 ml @ 0 mls/hr IV . [facility] Rx#: [id number] Tube Feeding 49 Output: Urine 820 995 175 Other 4000 Other: Voiding Method Indwelling Catheter Indwelling Catheter Indwelling Catheter Weight 147.9 kg 142.1 kg - Constitutional General appearance: average body habitus, cooperative - EENT EENT: PERRL, mucous membranes moist - Respiratory Respiratory: lungs clear, normal breath sounds - Cardiovascular Cardiovascular: regular rate, normal S1, normal S2 Extremities: no peripheral edema bilaterally - Gastrointestinal Gastrointestinal: normoactive bowel sounds - Integumentary Integumentary: normal - Neurologic Cranial nerve examination: PERRL, EOMI, VFF, V1/V2/V3 grossly intact, face symmetric, intact gag reflex, intact corneal reflex, normal palatal elevation Speech examination: global aphasia Sensorimotor examination: intact Motor examination - right side: 3/5: biceps, triceps, wrist flexion, wrist extension, mercerizing range feeder, hip flexors, knee extensors, dorsiflexion, toe extension (EHL) , plantarflexion Motor examination - left side: 3/5: biceps, triceps, wrist flexion, wrist extension, mercerizing range feeder, hip flexors, knee extensors, dorsiflexion, toe extension (EHL) , plantarflexion Detailed sensory examination: intact Reflex and gait examination: intact Reflexes: 1+: ankle, bicep, knee, tricep - Musculoskeletal Musculoskeletal: no pain - Psychiatric Psychiatric: mood/affect appropriate, cooperative Results - Laboratory Findings CBC and BMP: 09/24/18 04:47 09/24/18 04:47 Abnormal Lab Findings: Abnormal Labs 09/08/18 09/08/18 09/08/18 11:20 11:20 11:20 WBC 14.1 H RBC Hgb Hct RDW Plt Count Neutrophils # 11.2 H Neutrophils # (Manual) Lymphocytes # (Manual) Monocytes # Monocytes # (Manual) Eosinophils # (Manual) Metamyelocytes # (Man) Myelocytes # (Manual) Nucleated RBCs PT INR APTT ABG pH ABG pCO2 ABG pO2 ABG HCO3 ABG Total CO2 ABG O2 Saturation Sodium Potassium 5.3 H Chloride 108 H Carbon Dioxide BUN Creatinine Glucose 108 H POC Glucose (mg/dL) Calcium Phosphorus Magnesium Total Bilirubin AST ALT Troponin I 0.258 H* Total Protein Albumin Urine Protein Urine Glucose (UA) Urine Ketones Urine Blood Urine RBC Urine WBC Urine Bacteria Urine Mucus Crossmatch 09/08/18 09/09/18 09/09/18 19:44 02:54 02:54 WBC 12.6 H RBC Hgb Hct RDW Plt Count Neutrophils # 8.2 H Neutrophils # (Manual) Lymphocytes # (Manual) Monocytes # Monocytes # (Manual) Eosinophils # (Manual) Metamyelocytes # (Man) Myelocytes # (Manual) Nucleated RBCs PT INR APTT 78.5 H ABG pH ABG pCO2 ABG pO2 ABG HCO3 ABG Total CO2 ABG O2 Saturation Sodium Potassium Chloride 109 H Carbon Dioxide BUN Creatinine Glucose 108 H POC Glucose (mg/dL) Calcium Phosphorus Magnesium Total Bilirubin AST ALT Troponin I Total Protein Albumin Urine Protein Urine Glucose (UA) Urine Ketones Urine Blood Urine RBC Urine WBC Urine Bacteria Urine Mucus Crossmatch 09/09/18 09/09/18 09/09/18 02:54 08:45 09:41 WBC RBC Hgb Hct RDW Plt Count Neutrophils # Neutrophils # (Manual) Lymphocytes # (Manual) Monocytes # Monocytes # (Manual) Eosinophils # (Manual) Metamyelocytes # (Man) Myelocytes # (Manual) Nucleated RBCs PT INR APTT 46.6 H ABG pH ABG pCO2 ABG pO2 ABG HCO3 ABG Total CO2 ABG O2 Saturation Sodium Potassium Chloride Carbon Dioxide BUN Creatinine Glucose POC Glucose (mg/dL) 137 H 218 H Calcium Phosphorus Magnesium Total Bilirubin AST ALT Troponin I Total Protein Albumin Urine Protein Urine Glucose (UA) Urine Ketones Urine Blood Urine RBC Urine WBC Urine Bacteria Urine Mucus Crossmatch 09/09/18 09/09/18 09/09/18 10:24 10:25 10:30 WBC RBC Hgb Hct RDW Plt Count Neutrophils # Neutrophils # (Manual) Lymphocytes # (Manual) Monocytes # Monocytes # (Manual) Eosinophils # (Manual) Metamyelocytes # (Man) Myelocytes # (Manual) Nucleated RBCs PT INR APTT ABG pH <7.00 L* ABG pCO2 80 H* ABG pO2 118 H ABG HCO3 18 L ABG Total CO2 ABG O2 Saturation Sodium Potassium Chloride Carbon Dioxide 16 L BUN Creatinine 1.74 H Glucose 278 H POC Glucose (mg/dL) 266 H Calcium 7.6 L Phosphorus 12.9 H* Magnesium 2.7 H Total Bilirubin AST ALT Troponin I Total Protein Albumin Urine Protein Urine Glucose (UA) Urine Ketones Urine Blood Urine RBC Urine WBC Urine Bacteria Urine Mucus Crossmatch 09/09/18 09/09/18 09/09/18 10:30 11:42 15:00 WBC RBC Hgb Hct RDW Plt Count Neutrophils # Neutrophils # (Manual) Lymphocytes # (Manual) Monocytes # Monocytes # (Manual) Eosinophils # (Manual) Metamyelocytes # (Man) Myelocytes # (Manual) Nucleated RBCs PT 17.2 H INR 1.9 H APTT >200.0 H* ABG pH 7.19 L* ABG pCO2 62 H ABG pO2 ABG HCO3 ABG Total CO2 25 H ABG O2 Saturation Sodium Potassium Chloride Carbon Dioxide BUN Creatinine Glucose POC Glucose (mg/dL) Calcium Phosphorus Magnesium Total Bilirubin AST ALT Troponin I Total Protein Albumin Urine Protein 2+ H Urine Glucose (UA) 3+ H Urine Ketones 1+ H Urine Blood Moderate H Urine RBC 6 H Urine WBC 14 H Urine Bacteria Rare H Urine Mucus Rare H Crossmatch 09/09/18 09/09/18 09/09/18 15:29 16:15 18:00 WBC 26.4 H RBC Hgb Hct RDW Plt Count Neutrophils # 23.8 H Neutrophils # (Manual) Lymphocytes # (Manual) Monocytes # 1.1 H Monocytes # (Manual) Eosinophils # (Manual) Metamyelocytes # (Man) Myelocytes # (Manual) Nucleated RBCs PT INR APTT 149.5 H* ABG pH 7.27 L ABG pCO2 47 H ABG pO2 220 H ABG HCO3 ABG Total CO2 ABG O2 Saturation 98.6 H Sodium Potassium Chloride Carbon Dioxide BUN Creatinine Glucose POC Glucose (mg/dL) Calcium Phosphorus Magnesium Total Bilirubin AST ALT Troponin I Total Protein Albumin Urine Protein Urine Glucose (UA) Urine Ketones Urine Blood Urine RBC Urine WBC Urine Bacteria Urine Mucus Crossmatch 09/09/18 09/09/18 09/09/18 21:50 22:40 23:44 WBC 20.3 H RBC 4.24 L Hgb Hct RDW Plt Count Neutrophils # Neutrophils # (Manual) Lymphocytes # (Manual) Monocytes # Monocytes # (Manual) Eosinophils # (Manual) Metamyelocytes # (Man) Myelocytes # (Manual) Nucleated RBCs PT 15.5 H INR 1.7 H APTT 35.3 H ABG pH ABG pCO2 ABG pO2 ABG HCO3 ABG Total CO2 ABG O2 Saturation Sodium Potassium Chloride Carbon Dioxide BUN Creatinine Glucose POC Glucose (mg/dL) 166 H Calcium Phosphorus Magnesium Total Bilirubin AST ALT Troponin I Total Protein Albumin Urine Protein Urine Glucose (UA) Urine Ketones Urine Blood Urine RBC Urine WBC Urine Bacteria Urine Mucus Crossmatch 09/10/18 09/10/18 09/10/18 04:00 04:00 05:09 WBC 15.0 H RBC 4.11 L Hgb 12.7 L Hct 38.8 L RDW Plt Count Neutrophils # 10.9 H Neutrophils # (Manual) Lymphocytes # (Manual) Monocytes # 1.1 H Monocytes # (Manual) Eosinophils # (Manual) Metamyelocytes # (Man) Myelocytes # (Manual) Nucleated RBCs PT INR APTT ABG pH ABG pCO2 ABG pO2 222 H ABG HCO3 ABG Total CO2 26 H ABG O2 Saturation 98.8 H Sodium Potassium Chloride 108 H Carbon Dioxide BUN 21 H Creatinine 1.76 H Glucose 164 H POC Glucose (mg/dL) Calcium 7.3 L Phosphorus Magnesium Total Bilirubin AST 559 H ALT 506 H Troponin I Total Protein 5.1 L Albumin 2.6 L Urine Protein Urine Glucose (UA) Urine Ketones Urine Blood Urine RBC Urine WBC Urine Bacteria Urine Mucus Crossmatch 09/10/18 09/10/18 09/10/18 05:30 06:10 11:05 WBC 15.4 H RBC 3.76 L Hgb 11.8 L Hct 35.3 L RDW Plt Count Neutrophils # Neutrophils # (Manual) Lymphocytes # (Manual) Monocytes # Monocytes # (Manual) Eosinophils # (Manual) Metamyelocytes # (Man) Myelocytes # (Manual) Nucleated RBCs PT 13.3 H INR 1.4 H APTT 87.1 H ABG pH ABG pCO2 ABG pO2 ABG HCO3 ABG Total CO2 ABG O2 Saturation Sodium Potassium Chloride Carbon Dioxide BUN Creatinine Glucose POC Glucose (mg/dL) 135 H Calcium Phosphorus Magnesium Total Bilirubin AST ALT Troponin I Total Protein Albumin Urine Protein Urine Glucose (UA) Urine Ketones Urine Blood Urine RBC Urine WBC Urine Bacteria Urine Mucus Crossmatch 09/10/18 09/10/18 09/10/18 11:47 15:05 17:50 WBC 14.6 H RBC 3.44 L Hgb 10.8 L Hct 32.3 L RDW Plt Count Neutrophils # Neutrophils # (Manual) Lymphocytes # (Manual) Monocytes # Monocytes # (Manual) Eosinophils # (Manual) Metamyelocytes # (Man) Myelocytes # (Manual) Nucleated RBCs PT INR APTT 53.4 H ABG pH ABG pCO2 ABG pO2 ABG HCO3 ABG Total CO2 ABG O2 Saturation Sodium Potassium Chloride Carbon Dioxide BUN Creatinine Glucose POC Glucose (mg/dL) 106 H Calcium Phosphorus Magnesium Total Bilirubin AST ALT Troponin I Total Protein Albumin Urine Protein Urine Glucose (UA) Urine Ketones Urine Blood Urine RBC Urine WBC Urine Bacteria Urine Mucus Crossmatch 09/10/18 09/10/18 09/10/18 18:16 21:40 21:40 WBC 13.6 H RBC 3.34 L Hgb 10.7 L Hct 31.2 L RDW Plt Count Neutrophils # 9.9 H Neutrophils # (Manual) Lymphocytes # (Manual) Monocytes # Monocytes # (Manual) Eosinophils # (Manual) Metamyelocytes # (Man) Myelocytes # (Manual) Nucleated RBCs PT INR APTT ABG pH ABG pCO2 ABG pO2 ABG HCO3 ABG Total CO2 ABG O2 Saturation Sodium 136 L Potassium Chloride 108 H Carbon Dioxide BUN Creatinine 1.79 H Glucose 154 H POC Glucose (mg/dL) 118 H Calcium 7.0 L Phosphorus Magnesium Total Bilirubin AST ALT Troponin I Total Protein Albumin Urine Protein Urine Glucose (UA) Urine Ketones Urine Blood Urine RBC Urine WBC Urine Bacteria Urine Mucus Crossmatch 09/11/18 09/11/18 09/11/18 00:37 04:50 04:52 WBC 12.9 H RBC 3.21 L Hgb 9.9 L Hct 30.2 L RDW Plt Count Neutrophils # 8.7 H Neutrophils # (Manual) Lymphocytes # (Manual) Monocytes # Monocytes # (Manual) Eosinophils # (Manual) Metamyelocytes # (Man) Myelocytes # (Manual) Nucleated RBCs PT INR APTT ABG pH ABG pCO2 ABG pO2 113 H ABG HCO3 26 H ABG Total CO2 27 H ABG O2 Saturation 97.9 H Sodium Potassium Chloride Carbon Dioxide BUN Creatinine Glucose POC Glucose (mg/dL) 169 H Calcium Phosphorus Magnesium Total Bilirubin AST ALT Troponin I Total Protein Albumin Urine Protein Urine Glucose (UA) Urine Ketones Urine Blood Urine RBC Urine WBC Urine Bacteria Urine Mucus Crossmatch 09/11/18 09/11/18 09/11/18 04:52 05:12 11:52 WBC RBC Hgb Hct RDW Plt Count Neutrophils # Neutrophils # (Manual) Lymphocytes # (Manual) Monocytes # Monocytes # (Manual) Eosinophils # (Manual) Metamyelocytes # (Man) Myelocytes # (Manual) Nucleated RBCs PT INR APTT ABG pH ABG pCO2 ABG pO2 ABG HCO3 ABG Total CO2 ABG O2 Saturation Sodium 136 L Potassium Chloride Carbon Dioxide BUN Creatinine 1.77 H Glucose 155 H POC Glucose (mg/dL) 177 H 123 H Calcium 7.0 L Phosphorus Magnesium Total Bilirubin AST 135 H ALT 275 H Troponin I Total Protein 4.8 L Albumin 2.4 L Urine Protein Urine Glucose (UA) Urine Ketones Urine Blood Urine RBC Urine WBC Urine Bacteria Urine Mucus Crossmatch 09/11/18 09/11/18 09/11/18 14:06 17:59 22:07 WBC 12.1 H RBC 2.99 L 2.93 L Hgb 9.6 L 9.5 L Hct 27.8 L 27.8 L RDW Plt Count Neutrophils # Neutrophils # (Manual) Lymphocytes # (Manual) Monocytes # Monocytes # (Manual) Eosinophils # (Manual) Metamyelocytes # (Man) Myelocytes # (Manual) Nucleated RBCs PT INR APTT ABG pH ABG pCO2 ABG pO2 ABG HCO3 ABG Total CO2 ABG O2 Saturation Sodium Potassium Chloride Carbon Dioxide BUN Creatinine Glucose POC Glucose (mg/dL) 106 H Calcium Phosphorus Magnesium Total Bilirubin AST ALT Troponin I Total Protein Albumin Urine Protein Urine Glucose (UA) Urine Ketones Urine Blood Urine RBC Urine WBC Urine Bacteria Urine Mucus Crossmatch 09/11/18 09/11/18 09/12/18 22:07 23:57 04:36 WBC 14.0 H RBC 2.87 L Hgb 9.4 L Hct 27.2 L RDW Plt Count Neutrophils # 11.6 H Neutrophils # (Manual) Lymphocytes # (Manual) Monocytes # Monocytes # (Manual) Eosinophils # (Manual) Metamyelocytes # (Man) Myelocytes # (Manual) Nucleated RBCs PT INR APTT 32.2 H ABG pH ABG pCO2 ABG pO2 ABG HCO3 ABG Total CO2 ABG O2 Saturation Sodium Potassium Chloride Carbon Dioxide BUN Creatinine Glucose POC Glucose (mg/dL) 158 H Calcium Phosphorus Magnesium Total Bilirubin AST ALT Troponin I Total Protein Albumin Urine Protein Urine Glucose (UA) Urine Ketones Urine Blood Urine RBC Urine WBC Urine Bacteria Urine Mucus Crossmatch 09/12/18 09/12/18 09/12/18 04:36 04:36 06:50 WBC RBC Hgb Hct RDW Plt Count Neutrophils # Neutrophils # (Manual) Lymphocytes # (Manual) Monocytes # Monocytes # (Manual) Eosinophils # (Manual) Metamyelocytes # (Man) Myelocytes # (Manual) Nucleated RBCs PT INR APTT 49.1 H ABG pH ABG pCO2 ABG pO2 ABG HCO3 ABG Total CO2 ABG O2 Saturation Sodium 136 L Potassium Chloride Carbon Dioxide BUN Creatinine 1.68 H Glucose 136 H POC Glucose (mg/dL) 128 H Calcium 7.9 L Phosphorus Magnesium 2.4 H Total Bilirubin AST 87 H ALT 187 H Troponin I Total Protein 5.1 L Albumin 2.5 L Urine Protein Urine Glucose (UA) Urine Ketones Urine Blood Urine RBC Urine WBC Urine Bacteria Urine Mucus Crossmatch 09/12/18 09/12/18 09/12/18 06:55 11:40 12:11 WBC 11.5 H RBC 2.76 L Hgb 8.6 L Hct 26.1 L RDW Plt Count Neutrophils # Neutrophils # (Manual) Lymphocytes # (Manual) Monocytes # Monocytes # (Manual) Eosinophils # (Manual) Metamyelocytes # (Man) Myelocytes # (Manual) Nucleated RBCs PT INR APTT ABG pH ABG pCO2 ABG pO2 59 L* ABG HCO3 ABG Total CO2 26 H ABG O2 Saturation 89.8 L Sodium Potassium Chloride Carbon Dioxide BUN Creatinine Glucose POC Glucose (mg/dL) 131 H Calcium Phosphorus Magnesium Total Bilirubin AST ALT Troponin I Total Protein Albumin Urine Protein Urine Glucose (UA) Urine Ketones Urine Blood Urine RBC Urine WBC Urine Bacteria Urine Mucus Crossmatch 09/12/18 09/12/18 09/13/18 17:35 17:48 00:24 WBC 11.3 H RBC 2.81 L Hgb 8.8 L Hct 26.7 L RDW Plt Count Neutrophils # Neutrophils # (Manual) Lymphocytes # (Manual) Monocytes # Monocytes # (Manual) Eosinophils # (Manual) Metamyelocytes # (Man) Myelocytes # (Manual) Nucleated RBCs PT INR APTT ABG pH ABG pCO2 ABG pO2 ABG HCO3 ABG Total CO2 ABG O2 Saturation Sodium Potassium Chloride Carbon Dioxide BUN Creatinine Glucose POC Glucose (mg/dL) 128 H 130 H Calcium Phosphorus Magnesium Total Bilirubin AST ALT Troponin I Total Protein Albumin Urine Protein Urine Glucose (UA) Urine Ketones Urine Blood Urine RBC Urine WBC Urine Bacteria Urine Mucus Crossmatch 09/13/18 09/13/18 09/13/18 04:07 04:07 04:07 WBC RBC 2.65 L Hgb 8.2 L Hct 25.5 L RDW Plt Count Neutrophils # Neutrophils # (Manual) Lymphocytes # (Manual) Monocytes # Monocytes # (Manual) Eosinophils # (Manual) Metamyelocytes # (Man) Myelocytes # (Manual) Nucleated RBCs PT INR APTT 63.7 H ABG pH ABG pCO2 ABG pO2 ABG HCO3 ABG Total CO2 ABG O2 Saturation Sodium Potassium Chloride 111 H Carbon Dioxide 14 L BUN Creatinine 1.76 H Glucose 144 H POC Glucose (mg/dL) Calcium 8.1 L Phosphorus Magnesium 2.4 H Total Bilirubin AST 93 H ALT 132 H Troponin I Total Protein 5.3 L Albumin 2.5 L Urine Protein Urine Glucose (UA) Urine Ketones Urine Blood Urine RBC Urine WBC Urine Bacteria Urine Mucus Crossmatch 09/13/18 09/13/18 09/13/18 05:05 06:12 12:06 WBC RBC Hgb Hct RDW Plt Count Neutrophils # Neutrophils # (Manual) Lymphocytes # (Manual) Monocytes # Monocytes # (Manual) Eosinophils # (Manual) Metamyelocytes # (Man) Myelocytes # (Manual) Nucleated RBCs PT INR APTT ABG pH ABG pCO2 ABG pO2 74 L ABG HCO3 ABG Total CO2 26 H ABG O2 Saturation Sodium Potassium Chloride Carbon Dioxide BUN Creatinine Glucose POC Glucose (mg/dL) 144 H 155 H Calcium Phosphorus Magnesium Total Bilirubin AST ALT Troponin I Total Protein Albumin Urine Protein Urine Glucose (UA) Urine Ketones Urine Blood Urine RBC Urine WBC Urine Bacteria Urine Mucus Crossmatch 09/13/18 09/13/18 09/14/18 18:31 19:15 00:11 WBC RBC Hgb Hct RDW Plt Count Neutrophils # Neutrophils # (Manual) Lymphocytes # (Manual) Monocytes # Monocytes # (Manual) Eosinophils # (Manual) Metamyelocytes # (Man) Myelocytes # (Manual) Nucleated RBCs PT INR APTT ABG pH 7.33 L ABG pCO2 48 H ABG pO2 64 L ABG HCO3 ABG Total CO2 27 H ABG O2 Saturation 91.1 L Sodium Potassium Chloride Carbon Dioxide BUN Creatinine Glucose POC Glucose (mg/dL) 130 H 131 H Calcium Phosphorus Magnesium Total Bilirubin AST ALT Troponin I Total Protein Albumin Urine Protein Urine Glucose (UA) Urine Ketones Urine Blood Urine RBC Urine WBC Urine Bacteria Urine Mucus Crossmatch 09/14/18 09/14/18 09/14/18 01:58 04:20 04:20 WBC RBC 2.47 L Hgb 8.0 L Hct 24.2 L RDW Plt Count Neutrophils # Neutrophils # (Manual) Lymphocytes # (Manual) 0.57 L Monocytes # Monocytes # (Manual) Eosinophils # (Manual) Metamyelocytes # (Man) 0.14 H Myelocytes # (Manual) Nucleated RBCs PT INR APTT ABG pH ABG pCO2 ABG pO2 ABG HCO3 ABG Total CO2 ABG O2 Saturation Sodium Potassium Chloride 111 H Carbon Dioxide BUN 24 H Creatinine 2.41 H Glucose 144 H POC Glucose (mg/dL) 154 H Calcium Phosphorus 5.4 H Magnesium 2.5 H Total Bilirubin 1.4 H AST 64 H ALT 102 H Troponin I Total Protein 5.4 L Albumin 2.5 L Urine Protein Urine Glucose (UA) Urine Ketones Urine Blood Urine RBC Urine WBC Urine Bacteria Urine Mucus Crossmatch 09/14/18 09/14/18 09/14/18 04:20 04:54 05:47 WBC RBC Hgb Hct RDW Plt Count Neutrophils # Neutrophils # (Manual) Lymphocytes # (Manual) Monocytes # Monocytes # (Manual) Eosinophils # (Manual) Metamyelocytes # (Man) Myelocytes # (Manual) Nucleated RBCs PT INR APTT 56.9 H ABG pH 7.32 L ABG pCO2 48 H ABG pO2 116 H ABG HCO3 ABG Total CO2 26 H ABG O2 Saturation 99.4 H Sodium Potassium Chloride Carbon Dioxide BUN Creatinine Glucose POC Glucose (mg/dL) 141 H Calcium Phosphorus Magnesium Total Bilirubin AST ALT Troponin I Total Protein Albumin Urine Protein Urine Glucose (UA) Urine Ketones Urine Blood Urine RBC Urine WBC Urine Bacteria Urine Mucus Crossmatch 09/14/18 09/14/18 09/14/18 10:11 11:23 17:01 WBC RBC Hgb Hct RDW Plt Count Neutrophils # Neutrophils # (Manual) Lymphocytes # (Manual) Monocytes # Monocytes # (Manual) Eosinophils # (Manual) Metamyelocytes # (Man) Myelocytes # (Manual) Nucleated RBCs PT INR APTT ABG pH ABG pCO2 ABG pO2 ABG HCO3 ABG Total CO2 ABG O2 Saturation Sodium Potassium Chloride 110 H Carbon Dioxide BUN 27 H Creatinine 2.64 H Glucose 139 H POC Glucose (mg/dL) 139 H 121 H Calcium 8.1 L Phosphorus Magnesium Total Bilirubin AST ALT 87 H Troponin I Total Protein 5.0 L Albumin 2.4 L Urine Protein Urine Glucose (UA) Urine Ketones Urine Blood Urine RBC Urine WBC Urine Bacteria Urine Mucus Crossmatch 09/14/18 09/14/18 09/15/18 20:22 23:57 04:12 WBC 10.8 H RBC 2.45 L Hgb 7.6 L Hct 23.4 L RDW Plt Count Neutrophils # Neutrophils # (Manual) Lymphocytes # (Manual) Monocytes # Monocytes # (Manual) Eosinophils # (Manual) Metamyelocytes # (Man) Myelocytes # (Manual) Nucleated RBCs PT INR APTT 38.8 H ABG pH ABG pCO2 ABG pO2 ABG HCO3 ABG Total CO2 ABG O2 Saturation Sodium Potassium Chloride Carbon Dioxide BUN Creatinine Glucose POC Glucose (mg/dL) 134 H Calcium Phosphorus Magnesium Total Bilirubin AST ALT Troponin I Total Protein Albumin Urine Protein Urine Glucose (UA) Urine Ketones Urine Blood Urine RBC Urine WBC Urine Bacteria Urine Mucus Crossmatch 09/15/18 09/15/18 09/15/18 04:12 04:32 05:58 WBC 12.2 H RBC 2.38 L Hgb 7.5 L Hct 22.9 L RDW Plt Count Neutrophils # Neutrophils # (Manual) Lymphocytes # (Manual) Monocytes # Monocytes # (Manual) Eosinophils # (Manual) Metamyelocytes # (Man) Myelocytes # (Manual) Nucleated RBCs PT INR APTT ABG pH ABG pCO2 ABG pO2 124 H ABG HCO3 ABG Total CO2 ABG O2 Saturation 100.0 H Sodium Potassium Chloride Carbon Dioxide BUN Creatinine Glucose POC Glucose (mg/dL) 119 H Calcium Phosphorus Magnesium Total Bilirubin AST ALT Troponin I Total Protein Albumin Urine Protein Urine Glucose (UA) Urine Ketones Urine Blood Urine RBC Urine WBC Urine Bacteria Urine Mucus Crossmatch 09/15/18 09/15/18 09/15/18 09:10 12:03 12:25 WBC RBC Hgb Hct RDW Plt Count Neutrophils # Neutrophils # (Manual) Lymphocytes # (Manual) Monocytes # Monocytes # (Manual) Eosinophils # (Manual) Metamyelocytes # (Man) Myelocytes # (Manual) Nucleated RBCs PT INR APTT 47.3 H ABG pH ABG pCO2 ABG pO2 ABG HCO3 ABG Total CO2 ABG O2 Saturation Sodium Potassium Chloride Carbon Dioxide BUN 46 H Creatinine 3.56 H Glucose 119 H POC Glucose (mg/dL) 125 H Calcium 8.3 L Phosphorus Magnesium Total Bilirubin AST ALT Troponin I Total Protein Albumin Urine Protein Urine Glucose (UA) Urine Ketones Urine Blood Urine RBC Urine WBC Urine Bacteria Urine Mucus Crossmatch 09/15/18 09/16/18 09/16/18 18:04 00:02 04:58 WBC RBC Hgb Hct RDW Plt Count Neutrophils # Neutrophils # (Manual) Lymphocytes # (Manual) Monocytes # Monocytes # (Manual) Eosinophils # (Manual) Metamyelocytes # (Man) Myelocytes # (Manual) Nucleated RBCs PT INR APTT ABG pH 7.29 L ABG pCO2 ABG pO2 ABG HCO3 ABG Total CO2 ABG O2 Saturation 98.2 H Sodium Potassium Chloride Carbon Dioxide BUN Creatinine Glucose POC Glucose (mg/dL) 121 H 146 H Calcium Phosphorus Magnesium Total Bilirubin AST ALT Troponin I Total Protein Albumin Urine Protein Urine Glucose (UA) Urine Ketones Urine Blood Urine RBC Urine WBC Urine Bacteria Urine Mucus Crossmatch 09/16/18 09/16/18 09/16/18 05:00 05:00 05:00 WBC 11.2 H RBC 1.91 L Hgb 5.9 L* D Hct 18.7 L* RDW Plt Count Neutrophils # Neutrophils # (Manual) 8.70 H Lymphocytes # (Manual) 0.34 L Monocytes # Monocytes # (Manual) Eosinophils # (Manual) Metamyelocytes # (Man) 0.67 H Myelocytes # (Manual) 0.78 H Nucleated RBCs PT INR APTT 50.0 H ABG pH ABG pCO2 ABG pO2 ABG HCO3 ABG Total CO2 ABG O2 Saturation Sodium 136 L Potassium Chloride Carbon Dioxide 18 L BUN 57 H Creatinine 3.89 H Glucose 105 H POC Glucose (mg/dL) Calcium 7.6 L Phosphorus 7.1 H Magnesium 2.4 H Total Bilirubin AST ALT Troponin I Total Protein Albumin Urine Protein Urine Glucose (UA) Urine Ketones Urine Blood Urine RBC Urine WBC Urine Bacteria Urine Mucus Crossmatch 09/16/18 09/16/18 09/16/18 06:20 06:51 12:02 WBC RBC Hgb Hct RDW Plt Count Neutrophils # Neutrophils # (Manual) Lymphocytes # (Manual) Monocytes # Monocytes # (Manual) Eosinophils # (Manual) Metamyelocytes # (Man) Myelocytes # (Manual) Nucleated RBCs PT INR APTT ABG pH 7.29 L ABG pCO2 ABG pO2 ABG HCO3 20 L ABG Total CO2 ABG O2 Saturation 97.7 H Sodium Potassium Chloride Carbon Dioxide BUN Creatinine Glucose POC Glucose (mg/dL) 121 H Calcium Phosphorus Magnesium Total Bilirubin AST ALT Troponin I Total Protein Albumin Urine Protein Urine Glucose (UA) Urine Ketones Urine Blood Urine RBC Urine WBC Urine Bacteria Urine Mucus Crossmatch See Detail 09/16/18 09/16/18 09/16/18 12:18 16:17 18:07 WBC 19.9 H RBC 2.84 L Hgb 8.9 L D Hct 26.9 L RDW Plt Count Neutrophils # Neutrophils # (Manual) Lymphocytes # (Manual) Monocytes # Monocytes # (Manual) Eosinophils # (Manual) Metamyelocytes # (Man) Myelocytes # (Manual) Nucleated RBCs PT INR APTT ABG pH ABG pCO2 ABG pO2 ABG HCO3 ABG Total CO2 ABG O2 Saturation Sodium Potassium Chloride Carbon Dioxide BUN Creatinine Glucose POC Glucose (mg/dL) 124 H 129 H Calcium Phosphorus Magnesium Total Bilirubin AST ALT Troponin I Total Protein Albumin Urine Protein Urine Glucose (UA) Urine Ketones Urine Blood Urine RBC Urine WBC Urine Bacteria Urine Mucus Crossmatch 09/16/18 09/17/18 09/17/18 23:39 04:05 04:05 WBC 18.8 H RBC 2.38 L Hgb 7.6 L Hct 22.4 L RDW 15.9 H Plt Count Neutrophils # Neutrophils # (Manual) 13.70 H Lymphocytes # (Manual) Monocytes # Monocytes # (Manual) Eosinophils # (Manual) Metamyelocytes # (Man) Myelocytes # (Manual) 2.44 H Nucleated RBCs PT INR APTT ABG pH ABG pCO2 ABG pO2 ABG HCO3 ABG Total CO2 ABG O2 Saturation Sodium Potassium Chloride Carbon Dioxide 16 L BUN 74 H Creatinine 4.77 H Glucose 111 H POC Glucose (mg/dL) 131 H Calcium 8.1 L Phosphorus 9.2 H* Magnesium 2.6 H Total Bilirubin AST ALT Troponin I Total Protein Albumin Urine Protein Urine Glucose (UA) Urine Ketones Urine Blood Urine RBC Urine WBC Urine Bacteria Urine Mucus Crossmatch 09/17/18 09/17/18 09/17/18 04:56 05:42 05:45 WBC RBC Hgb Hct RDW Plt Count Neutrophils # Neutrophils # (Manual) Lymphocytes # (Manual) Monocytes # Monocytes # (Manual) Eosinophils # (Manual) Metamyelocytes # (Man) Myelocytes # (Manual) Nucleated RBCs PT INR APTT 48.8 H ABG pH 7.28 L ABG pCO2 ABG pO2 ABG HCO3 19 L ABG Total CO2 ABG O2 Saturation 97.9 H Sodium Potassium Chloride Carbon Dioxide BUN Creatinine Glucose POC Glucose (mg/dL) 127 H Calcium Phosphorus Magnesium Total Bilirubin AST ALT Troponin I Total Protein Albumin Urine Protein Urine Glucose (UA) Urine Ketones Urine Blood Urine RBC Urine WBC Urine Bacteria Urine Mucus Crossmatch 09/17/18 09/17/18 09/17/18 11:55 18:17 23:58 WBC RBC Hgb Hct RDW Plt Count Neutrophils # Neutrophils # (Manual) Lymphocytes # (Manual) Monocytes # Monocytes # (Manual) Eosinophils # (Manual) Metamyelocytes # (Man) Myelocytes # (Manual) Nucleated RBCs PT INR APTT ABG pH ABG pCO2 ABG pO2 ABG HCO3 ABG Total CO2 ABG O2 Saturation Sodium Potassium Chloride Carbon Dioxide BUN Creatinine Glucose POC Glucose (mg/dL) 139 H 125 H 124 H Calcium Phosphorus Magnesium Total Bilirubin AST ALT Troponin I Total Protein Albumin Urine Protein Urine Glucose (UA) Urine Ketones Urine Blood Urine RBC Urine WBC Urine Bacteria Urine Mucus Crossmatch 09/18/18 09/18/18 09/18/18 05:00 05:00 05:00 WBC 25.9 H RBC 3.02 L Hgb 9.4 L D Hct 27.9 L RDW 16.3 H Plt Count 458 H Neutrophils # Neutrophils # (Manual) 19.60 H Lymphocytes # (Manual) Monocytes # Monocytes # (Manual) 1.04 H Eosinophils # (Manual) 0.78 H Metamyelocytes # (Man) 3.11 H Myelocytes # (Manual) 0.52 H Nucleated RBCs 1 H PT INR APTT 56.4 H ABG pH ABG pCO2 ABG pO2 ABG HCO3 ABG Total CO2 ABG O2 Saturation Sodium Potassium Chloride Carbon Dioxide BUN 80 H Creatinine 4.79 H Glucose 110 H POC Glucose (mg/dL) Calcium Phosphorus 9.7 H* Magnesium 2.9 H Total Bilirubin AST ALT Troponin I Total Protein Albumin Urine Protein Urine Glucose (UA) Urine Ketones Urine Blood Urine RBC Urine WBC Urine Bacteria Urine Mucus Crossmatch 09/18/18 09/18/18 09/18/18 05:13 06:01 11:55 WBC RBC Hgb Hct RDW Plt Count Neutrophils # Neutrophils # (Manual) Lymphocytes # (Manual) Monocytes # Monocytes # (Manual) Eosinophils # (Manual) Metamyelocytes # (Man) Myelocytes # (Manual) Nucleated RBCs PT INR APTT ABG pH 7.29 L ABG pCO2 47 H ABG pO2 113 H ABG HCO3 ABG Total CO2 ABG O2 Saturation 97.1 H Sodium Potassium Chloride Carbon Dioxide BUN Creatinine Glucose POC Glucose (mg/dL) 114 H 100 H Calcium Phosphorus Magnesium Total Bilirubin AST ALT Troponin I Total Protein Albumin Urine Protein Urine Glucose (UA) Urine Ketones Urine Blood Urine RBC Urine WBC Urine Bacteria Urine Mucus Crossmatch 09/18/18 09/18/18 09/19/18 18:58 23:53 05:00 WBC 29.8 H RBC 3.13 L Hgb 9.3 L Hct 28.8 L RDW 16.4 H Plt Count 481 H Neutrophils # Neutrophils # (Manual) 26.20 H Lymphocytes # (Manual) Monocytes # Monocytes # (Manual) 1.19 H Eosinophils # (Manual) Metamyelocytes # (Man) Myelocytes # (Manual) 0.89 H Nucleated RBCs PT INR APTT ABG pH ABG pCO2 ABG pO2 ABG HCO3 ABG Total CO2 ABG O2 Saturation Sodium Potassium Chloride Carbon Dioxide BUN Creatinine Glucose POC Glucose (mg/dL) 116 H 111 H Calcium Phosphorus Magnesium Total Bilirubin AST ALT Troponin I Total Protein Albumin Urine Protein Urine Glucose (UA) Urine Ketones Urine Blood Urine RBC Urine WBC Urine Bacteria Urine Mucus Crossmatch 09/19/18 09/19/18 09/19/18 05:00 05:00 05:20 WBC RBC Hgb Hct RDW Plt Count Neutrophils # Neutrophils # (Manual) Lymphocytes # (Manual) Monocytes # Monocytes # (Manual) Eosinophils # (Manual) Metamyelocytes # (Man) Myelocytes # (Manual) Nucleated RBCs PT INR APTT 67.1 H ABG pH 7.34 L ABG pCO2 ABG pO2 ABG HCO3 ABG Total CO2 25 H ABG O2 Saturation Sodium Potassium 3.3 L Chloride Carbon Dioxide BUN 84 H Creatinine 4.56 H Glucose 109 H POC Glucose (mg/dL) Calcium Phosphorus 7.9 H Magnesium 2.9 H Total Bilirubin AST ALT Troponin I Total Protein Albumin Urine Protein Urine Glucose (UA) Urine Ketones Urine Blood Urine RBC Urine WBC Urine Bacteria Urine Mucus Crossmatch 09/19/18 09/19/18 09/19/18 05:58 12:20 17:29 WBC RBC Hgb Hct RDW Plt Count Neutrophils # Neutrophils # (Manual) Lymphocytes # (Manual) Monocytes # Monocytes # (Manual) Eosinophils # (Manual) Metamyelocytes # (Man) Myelocytes # (Manual) Nucleated RBCs PT INR APTT ABG pH ABG pCO2 ABG pO2 ABG HCO3 ABG Total CO2 ABG O2 Saturation Sodium Potassium Chloride Carbon Dioxide BUN Creatinine Glucose POC Glucose (mg/dL) 110 H 106 H 112 H Calcium Phosphorus Magnesium Total Bilirubin AST ALT Troponin I Total Protein Albumin Urine Protein Urine Glucose (UA) Urine Ketones Urine Blood Urine RBC Urine WBC Urine Bacteria Urine Mucus Crossmatch 09/19/18 09/20/18 09/20/18 23:44 04:30 04:30 WBC RBC Hgb Hct RDW Plt Count Neutrophils # Neutrophils # (Manual) Lymphocytes # (Manual) Monocytes # Monocytes # (Manual) Eosinophils # (Manual) Metamyelocytes # (Man) Myelocytes # (Manual) Nucleated RBCs PT INR APTT 94.8 H ABG pH ABG pCO2 ABG pO2 ABG HCO3 ABG Total CO2 ABG O2 Saturation Sodium Potassium 3.3 L Chloride Carbon Dioxide BUN 80 H Creatinine 4.63 H Glucose 110 H POC Glucose (mg/dL) 102 H Calcium Phosphorus 6.7 H Magnesium 2.8 H Total Bilirubin AST ALT Troponin I Total Protein Albumin Urine Protein Urine Glucose (UA) Urine Ketones Urine Blood Urine RBC Urine WBC Urine Bacteria Urine Mucus Crossmatch 09/20/18 09/20/18 09/20/18 04:30 05:12 06:24 WBC 23.7 H RBC 3.11 L Hgb 9.5 L Hct 28.8 L RDW 16.5 H Plt Count Neutrophils # Neutrophils # (Manual) 20.38 H Lymphocytes # (Manual) Monocytes # Monocytes # (Manual) 1.19 H Eosinophils # (Manual) Metamyelocytes # (Man) Myelocytes # (Manual) Nucleated RBCs PT INR APTT ABG pH ABG pCO2 ABG pO2 ABG HCO3 ABG Total CO2 27 H ABG O2 Saturation Sodium Potassium Chloride Carbon Dioxide BUN Creatinine Glucose POC Glucose (mg/dL) 120 H Calcium Phosphorus Magnesium Total Bilirubin AST ALT Troponin I Total Protein Albumin Urine Protein Urine Glucose (UA) Urine Ketones Urine Blood Urine RBC Urine WBC Urine Bacteria Urine Mucus Crossmatch 09/20/18 09/20/18 09/20/18 10:55 11:42 12:45 WBC RBC Hgb Hct RDW Plt Count Neutrophils # Neutrophils # (Manual) Lymphocytes # (Manual) Monocytes # Monocytes # (Manual) Eosinophils # (Manual) Metamyelocytes # (Man) Myelocytes # (Manual) Nucleated RBCs PT INR APTT 57.7 H ABG pH ABG pCO2 47 H ABG pO2 110 H ABG HCO3 27 H ABG Total CO2 28 H ABG O2 Saturation 97.7 H Sodium Potassium Chloride Carbon Dioxide BUN Creatinine Glucose POC Glucose (mg/dL) 111 H Calcium Phosphorus Magnesium Total Bilirubin AST ALT Troponin I Total Protein Albumin Urine Protein Urine Glucose (UA) Urine Ketones Urine Blood Urine RBC Urine WBC Urine Bacteria Urine Mucus Crossmatch 09/20/18 09/20/18 09/21/18 18:05 23:33 04:30 WBC 17.3 H RBC 2.96 L Hgb 9.0 L Hct 28.0 L RDW 16.9 H Plt Count Neutrophils # Neutrophils # (Manual) 13.10 H Lymphocytes # (Manual) Monocytes # Monocytes # (Manual) Eosinophils # (Manual) Metamyelocytes # (Man) Myelocytes # (Manual) 1.04 H Nucleated RBCs PT INR APTT ABG pH ABG pCO2 ABG pO2 ABG HCO3 ABG Total CO2 ABG O2 Saturation Sodium Potassium Chloride Carbon Dioxide BUN Creatinine Glucose POC Glucose (mg/dL) 109 H 104 H Calcium Phosphorus Magnesium Total Bilirubin AST ALT Troponin I Total Protein Albumin Urine Protein Urine Glucose (UA) Urine Ketones Urine Blood Urine RBC Urine WBC Urine Bacteria Urine Mucus Crossmatch 09/21/18 09/21/18 09/21/18 04:30 05:30 05:41 WBC RBC Hgb Hct RDW Plt Count Neutrophils # Neutrophils # (Manual) Lymphocytes # (Manual) Monocytes # Monocytes # (Manual) Eosinophils # (Manual) Metamyelocytes # (Man) Myelocytes # (Manual) Nucleated RBCs PT INR APTT ABG pH 7.33 L ABG pCO2 51 H ABG pO2 115 H ABG HCO3 26 H ABG Total CO2 28 H ABG O2 Saturation 98.9 H Sodium Potassium 3.4 L Chloride Carbon Dioxide BUN 97 H Creatinine 4.82 H Glucose 112 H POC Glucose (mg/dL) 119 H Calcium Phosphorus 7.6 H Magnesium 2.8 H Total Bilirubin AST ALT Troponin I Total Protein Albumin Urine Protein Urine Glucose (UA) Urine Ketones Urine Blood Urine RBC Urine WBC Urine Bacteria Urine Mucus Crossmatch 09/21/18 09/21/18 09/21/18 07:35 11:14 18:19 WBC RBC Hgb Hct RDW Plt Count Neutrophils # Neutrophils # (Manual) Lymphocytes # (Manual) Monocytes # Monocytes # (Manual) Eosinophils # (Manual) Metamyelocytes # (Man) Myelocytes # (Manual) Nucleated RBCs PT INR APTT 73.0 H ABG pH ABG pCO2 ABG pO2 ABG HCO3 ABG Total CO2 ABG O2 Saturation Sodium Potassium Chloride Carbon Dioxide BUN Creatinine Glucose POC Glucose (mg/dL) 106 H 109 H Calcium Phosphorus Magnesium Total Bilirubin AST ALT Troponin I Total Protein Albumin Urine Protein Urine Glucose (UA) Urine Ketones Urine Blood Urine RBC Urine WBC Urine Bacteria Urine Mucus Crossmatch 09/22/18 09/22/18 09/22/18 00:22 05:20 05:20 WBC 15.8 H RBC 2.92 L Hgb 8.8 L Hct 27.7 L RDW 17.4 H Plt Count Neutrophils # 12.9 H Neutrophils # (Manual) Lymphocytes # (Manual) Monocytes # Monocytes # (Manual) Eosinophils # (Manual) Metamyelocytes # (Man) Myelocytes # (Manual) Nucleated RBCs PT INR APTT ABG pH ABG pCO2 ABG pO2 ABG HCO3 ABG Total CO2 ABG O2 Saturation Sodium Potassium Chloride Carbon Dioxide BUN 88 H Creatinine 4.68 H Glucose 117 H POC Glucose (mg/dL) 116 H Calcium Phosphorus 7.0 H Magnesium 2.8 H Total Bilirubin AST ALT Troponin I Total Protein Albumin Urine Protein Urine Glucose (UA) Urine Ketones Urine Blood Urine RBC Urine WBC Urine Bacteria Urine Mucus Crossmatch 09/22/18 09/22/18 09/22/18 05:20 07:53 11:48 WBC RBC Hgb Hct RDW Plt Count Neutrophils # Neutrophils # (Manual) Lymphocytes # (Manual) Monocytes # Monocytes # (Manual) Eosinophils # (Manual) Metamyelocytes # (Man) Myelocytes # (Manual) Nucleated RBCs PT INR APTT 91.9 H ABG pH ABG pCO2 49 H ABG pO2 ABG HCO3 28 H ABG Total CO2 30 H ABG O2 Saturation 97.8 H Sodium Potassium Chloride Carbon Dioxide BUN Creatinine Glucose POC Glucose (mg/dL) 109 H Calcium Phosphorus Magnesium Total Bilirubin AST ALT Troponin I Total Protein Albumin Urine Protein Urine Glucose (UA) Urine Ketones Urine Blood Urine RBC Urine WBC Urine Bacteria Urine Mucus Crossmatch 09/22/18 09/22/18 09/22/18 15:53 18:09 19:11 WBC RBC Hgb Hct RDW Plt Count Neutrophils # Neutrophils # (Manual) Lymphocytes # (Manual) Monocytes # Monocytes # (Manual) Eosinophils # (Manual) Metamyelocytes # (Man) Myelocytes # (Manual) Nucleated RBCs PT INR APTT 172.7 H* >200.0 H* ABG pH ABG pCO2 ABG pO2 ABG HCO3 ABG Total CO2 ABG O2 Saturation Sodium Potassium Chloride Carbon Dioxide BUN Creatinine Glucose POC Glucose (mg/dL) 118 H Calcium Phosphorus Magnesium Total Bilirubin AST ALT Troponin I Total Protein Albumin Urine Protein Urine Glucose (UA) Urine Ketones Urine Blood Urine RBC Urine WBC Urine Bacteria Urine Mucus Crossmatch 09/23/18 09/23/18 09/23/18 00:31 00:43 05:00 WBC 11.7 H RBC 3.00 L Hgb 8.9 L Hct 28.2 L RDW 16.6 H Plt Count Neutrophils # 9.3 H Neutrophils # (Manual) Lymphocytes # (Manual) Monocytes # Monocytes # (Manual) Eosinophils # (Manual) Metamyelocytes # (Man) Myelocytes # (Manual) Nucleated RBCs PT INR APTT 66.2 H ABG pH ABG pCO2 ABG pO2 ABG HCO3 ABG Total CO2 ABG O2 Saturation Sodium Potassium Chloride Carbon Dioxide BUN Creatinine Glucose POC Glucose (mg/dL) 100 H Calcium Phosphorus Magnesium Total Bilirubin AST ALT Troponin I Total Protein Albumin Urine Protein Urine Glucose (UA) Urine Ketones Urine Blood Urine RBC Urine WBC Urine Bacteria Urine Mucus Crossmatch 09/23/18 09/23/18 09/24/18 05:00 07:43 00:00 WBC RBC Hgb Hct RDW Plt Count Neutrophils # Neutrophils # (Manual) Lymphocytes # (Manual) Monocytes # Monocytes # (Manual) Eosinophils # (Manual) Metamyelocytes # (Man) Myelocytes # (Manual) Nucleated RBCs PT INR APTT 96.6 H ABG pH 7.31 L ABG pCO2 54 H ABG pO2 ABG HCO3 27 H ABG Total CO2 29 H ABG O2 Saturation 97.3 H Sodium Potassium Chloride Carbon Dioxide BUN 77 H Creatinine 3.82 H Glucose POC Glucose (mg/dL) Calcium Phosphorus 6.5 H Magnesium 2.4 H Total Bilirubin AST ALT Troponin I Total Protein Albumin Urine Protein Urine Glucose (UA) Urine Ketones Urine Blood Urine RBC Urine WBC Urine Bacteria Urine Mucus Crossmatch 09/24/18 09/24/18 09/24/18 04:47 04:47 04:47 WBC 12.7 H RBC 3.10 L Hgb 9.4 L Hct 29.3 L RDW 16.4 H Plt Count Neutrophils # 10.0 H Neutrophils # (Manual) Lymphocytes # (Manual) Monocytes # Monocytes # (Manual) Eosinophils # (Manual) Metamyelocytes # (Man) Myelocytes # (Manual) Nucleated RBCs PT INR APTT 42.2 H ABG pH ABG pCO2 ABG pO2 ABG HCO3 ABG Total CO2 ABG O2 Saturation Sodium Potassium Chloride Carbon Dioxide BUN 72 H Creatinine 3.78 H Glucose POC Glucose (mg/dL) Calcium Phosphorus 7.0 H Magnesium 2.4 H Total Bilirubin AST ALT Troponin I Total Protein Albumin Urine Protein Urine Glucose (UA) Urine Ketones Urine Blood Urine RBC Urine WBC Urine Bacteria Urine Mucus Crossmatch 09/24/18 09/24/18 09/24/18 07:45 14:15 18:11 WBC RBC Hgb Hct RDW Plt Count Neutrophils # Neutrophils # (Manual) Lymphocytes # (Manual) Monocytes # Monocytes # (Manual) Eosinophils # (Manual) Metamyelocytes # (Man) Myelocytes # (Manual) Nucleated RBCs PT INR APTT 97.4 H ABG pH 7.34 L ABG pCO2 49 H ABG pO2 109 H ABG HCO3 26 H ABG Total CO2 28 H ABG O2 Saturation 98.2 H Sodium Potassium Chloride Carbon Dioxide BUN Creatinine Glucose POC Glucose (mg/dL) 101 H Calcium Phosphorus Magnesium Total Bilirubin AST ALT Troponin I Total Protein Albumin Urine Protein Urine Glucose (UA) Urine Ketones Urine Blood Urine RBC Urine WBC Urine Bacteria Urine Mucus Crossmatch Assessment and Plan (1) Acute metabolic encephalopathy Current Visit: Yes Status: Acute Code(s): G93.41 - METABOLIC ENCEPHALOPATHY SNOMED Code(s): 74470667 (2) Pulmonary embolism Current Visit: Yes Status: Acute Code(s): I26.99 - OTHER PULMONARY EMBOLISM WITHOUT ACUTE COR PULMONALE SNOMED Code(s): 65457214 (3) Congestive heart failure (CHF) Current Visit: No Status: Acute Code(s): I50.9 - HEART FAILURE, UNSPECIFIED SNOMED Code(s): 01599689 (4) DVT (deep venous thrombosis) Current Visit: No Status: Acute Code(s): I82.409 - ACUTE EMBOLISM AND THOMBOS UNSP DEEP VN UNSP LOWER EXTREMITY SNOMED Code(s): 766898569 (5) Obesity Current Visit: No Status: Acute Code(s): E66.9 - OBESITY, UNSPECIFIED SNOMED Code(s): 734416746 Plan: This patient is a 52-year-old male who was brought into the hospital with symptoms of severe shortness of breath on 09/08/2018. Patient was found to have evidence of massive pulmonary embolus and was admitted to the hospital. Patient went into full cardiac arrest on 09/09/2018 with a extensive resuscitation episode. He underwent some degree of hypoxic injury due to the resuscitation. He was then transferred to the intensive care unit after being intubated and failed to wean. Due to his failure to wean he was sent for a tracheostomy and PEG tube placement which was completed yesterday. Patient has been started on tube feedings today. He remains very encephalopathic and is not following commands at this time. He does some tracking with his eyes but does not seem to follow more complex commands. We have recommended the patient undergo routine EEG to assess his degree of encephalopathy. We would also recommend a follow-up computed tomography scan of the brain to be done. He is undergoing hemodialysis and his serum creatinine should also be monitored. Patient has multiple medical comorbidities conjure being to his condition of encephalopathy. We will continue close neurological follow-up with this patient in the intensive care unit. His overall prognosis at this time remains very guarded. Time with Patient: Greater than 30
[2018-09-25] MEDS: INSULIN ASPART 100 UNIT/ML 1 ML 10 ML VIAL SQ SCH ×4 (01:09→17:47)
[2018-09-25 01:10] LABS: Glucose,Whole Blood 134 mg/dL (75-99)
[2018-09-25] MEDS: PIPERACILLIN-TAZOBACTAM 3.375 GM in SODIUM CHLORIDE 0.9% 100 ML IVPB SCH ×3 (01:10→18:11)
[2018-09-25] MEDS: HYDROmorphone 1 MG/ML 1 ML SYRINGE IVP PRN ×5 (03:24→22:03)
[2018-09-25] MEDS: IPRATROPIUM-ALBUTEROL 3 ML NEB INHALATION SCH ×6 (03:26→23:23)
[2018-09-25 04:41] LABS: Anisocytosis Slight; Basophils # (A) 0.1 k/uL (0-0.2); Basophils % (A) 1 %; Eosinophils # (A) 0.2 k/uL (0-0.7); Eosinophils % (A) 2 %; HCT 30.6 % (39.0-53.0); HGB 9.5 gm/dL (13.0-17.5); Hypochromasia Slight; Lymphocytes # (A) 0.9 k/uL (1.0-4.8); Lymphocytes % (A) 8 %; MCH 30.1 pg (25.0-35.0); MCHC 31.2 g/dL (31.0-37.0); MCV 96.4 fL (80.0-100.0); Macrocytosis Slight; Mean Platelet Volume 7.6; Monocytes # (A) 0.6 k/uL (0-1.0); Monocytes % (A) 6 %; Neutrophils # (A) 8.6 k/uL (1.3-7.7); Neutrophils % (A) 81 %; Platelet Count 185 k/uL (150-450); RBC 3.17 m/uL (4.30-5.90); RDW 16.4 % (11.5-15.5); WBC 10.6 k/uL (3.8-10.6)
[2018-09-25 04:54] LABS: Calcium 8.9 mg/dL (8.4-10.2); Magnesium 2.3 mg/dL (1.6-2.3); Phosphorus 6.3 mg/dL (2.5-4.5); Potassium 3.5 mmol/L (3.5-5.1)
[2018-09-25 07:21] LABS: Glucose,Whole Blood 122 mg/dL (75-99)
[2018-09-25 07:48] LABS: ABG Base Excess 4.1 mmol/L; ABG HCO3 29 mmol/L (21-25); ABG Oxygen Saturation 97.6 % (94-97); ABG PCO2 46 mmHg (35-45); ABG PO2 91 mmHg (83-108); ABG TCO2 30 mmol/L (19-24)
[2018-09-25] MEDS: PANTOPRAZOLE 40 MG/10 ML VIAL IVP SCH (08:10)
[2018-09-25] MEDS: CALCIUM ACETATE 667 MG CAP PO SCH ×3 (08:10→18:11)
[2018-09-25] MEDS: CHLORHEXIDINE GLUCONATE 15 ML CUP MUCOUS MEM SCH ×2 (08:10→22:03)
[2018-09-25] MEDS: METOPROLOL TARTRATE 25 MG TAB PO SCH ×4 (08:10→22:03)
[2018-09-25] MEDS: RIVAROXABAN 15 MG TAB PO SCH ×2 (08:10→18:11)
[2018-09-25] MEDS: hydrALAZINE HCL 50 MG TAB PO SCH ×3 (08:10→22:03)
[2018-09-25] MEDS: AMIODARONE 200 MG TAB PO SCH (08:10)
--- NOTE | 2018-09-25 09:49 | PN ---
PROGRESS NOTE Mr. Rowley is a 52-year-old male who presented with massive bilateral pulmonary embolism with respiratory failure. He had episode of atrial arrhythmia that is stabilized. He has a tracheostomy and PEG tube placement. He is awake, follows commands, able to squeeze his hand, but is quite weak. There is no evidence of significant malignant arrhythmia. He continued to be on the amiodarone 200 mg twice a day. In addition to that he is on Lopressor 25 mg twice a day. In addition to hydralazine 50 mg 3 times a day. PHYSICAL EXAMINATION: Blood pressure running in the 180 with a heart rate in the 100. LUNGS: Clear anteriorly. HEART: Regular rate and rhythm. S1, S2. No S3. No rub. ABDOMEN: Soft obese., nontender extremities +1 edema. LAB DATA: Lab data revealed a BUN and creatinine 17 and 3.81. His back dialysis catheter has been removed. His urine output has been stable. IMPRESSION: 1. Status post massive bilateral pulmonary embolism 2 history cough, respiratory failure. 2. Metabolic encephalopathy. 3. Atrial arrhythmia, stable. 4. Acute renal injury with stable urine output at this time, has received dialysis. RECOMMENDATION: I will increase the dose of his beta brittany. The patient is on oral anticoagulation at this time. Will continue rest of his medical regimen, continue physical therapy. Patient would require long-term care for hopefully weaning and extubation. MMODL / IJN: [id number] /
[2018-09-25] MEDS: SODIUM CHLORIDE 0.9% 1,000 ML IV SCH ×2 (09:57→20:50)
[2018-09-25] MEDS: BUMETANIDE 12 MG in DEXTROSE 5% IN WATER 192 ML IV SCH ×2 (10:03)
[2018-09-25] MEDS ORDERED: hydrALAZINE HCL 50 MG TAB PO STA (11:15)
--- NOTE | 2018-09-25 11:29 | P.PN ---
Progress Note - Text Progress Note Date: 09/25/18 52-year-old male being seen in the ICU on mechanical ventilation support sedated. Surgical eval requested for placement of tracheostomy and PEG tube Status post tracheostomy and PEG tube placement done on September 23. No redness noted around the PEG tube site tube feedings at 49 mL an hour. Tracheostomy secure connected to vent support no new changes noted. PEG tube placement for mild to moderate malnutrition to aid in nutritional support. Patient was initially admitted with acute hypoxic respiratory failure secondary to massive bilateral pulmonary emboli. Acute metabolic encephalopathy possible anoxic brain injury Will follow with you with further recommendations pending The above impression and plan of care have been discussed and directed by signing physician. Ella Vargas nurse practitioner acting as scribe for signing physician.
[2018-09-25 11:51] LABS: Glucose,Whole Blood 130 mg/dL (75-99)
[2018-09-25] MEDS: POTASSIUM BICARBONATE/CIT AC 20 MEQ TABLET.EFF NG-TUBE SCH ×2 (11:56→15:16)
[2018-09-25] MEDS: MULTIVITAMINS, THERA 1 EACH TAB PO SCH (11:56)
--- NOTE | 2018-09-25 12:44 | XR ---
EXAMINATION TYPE: XR chest 1V portable DATE OF EXAM: 09/25/2018 COMPARISON: 09/24/2018 HISTORY: Shortness of breath TECHNIQUE: Single frontal view of the chest is obtained. FINDINGS: Tracheostomy tube and central line stable. Persistent bilateral consolidation and pleural effusion greater on the left. No sizable pneumothorax. Interstitium is prominent but stable. IMPRESSION: 1. Bilateral pleural-parenchymal changes are stable correlate for CHF versus pneumonia.
--- NOTE | 2018-09-25 13:19 | CT ---
EXAMINATION TYPE: CT brain wo con DATE OF EXAM: 09/25/2018 COMPARISON: 09/21/2018 HISTORY: Patient with hypoxic encephalopathy. CT DLP: 1602.4 mGycm. Automated Exposure Control for Dose Reduction was Utilized. TECHNIQUE: CT scan of the head is performed without contrast. FINDINGS: There is no acute intracranial hemorrhage, mass effect, or midline shift identified. The basal ganglia calcifications are incidentally noted. No suspicious extra-axial fluid collection is s een. The ventricles and sulci are mildly prominent compatible with mild age-related volume loss. The globes are intact. Air is noted within the cavernous sinus, possibly from intravenous injection. Again there is complete opacification of the right mastoid air cells and partial opacification of the left mastoid air cells with circumferential mucosal thickening of the right maxillary sinus, scant m ucosal thickening in the ethmoid sinuses and mild mucosal thickening in the sphenoid sinuses. Left ma xillary sinus and frontal sinuses are well aerated. IMPRESSION: No acute intracranial process. Findings again indicative of sinusitis and suspicious for mastoiditis, right greater than left.
--- NOTE | 2018-09-25 14:17 | P.PN ---
Subjective Progress Note Date: 09/25/18 Principal diagnosis: Acute hypoxic respiratory failure secondary to massive bilateral pulmonary embolism. Status post cardiopulmonary arrest and status post TPA treatment. On 09/14/2018, I am seeing this patient for a follow-up in the intensive care unit. The patient was in following a massive but the pulmonary embolism, right ventricular enlargement and right ventricular strain pattern with subsequent hemodynamic collapse and cardiac arrest. The patient is post TPA infusion at time of the code. The patient is currently on IV heparin. In terms of his breathing, the patient is intubated on a mechanical ventilator. The patient is currently on an assist-control mode at the rate of 32 with a tidal volume of 500 and FiO2 of 50% with a PEEP of 10. The chest x-ray from today shows adequate positioning of 82. There is some atelectatic changes and infiltration of the right lung base. Meanwhile, the blood gases from today showed a pH of 7.32 with a pCO2 of 48 and pO2 of 116 and this was done on the above-mentioned ventilator settings. No significant orotracheal secretions. Breath other are equal and bilateral. Airway pressures are not elevated. Hemodynamically, the patient is on pressors at 3 mics of norepinephrine infusion for blood pressure support. He has been aggressively resuscitated IV fluids and a noted significant amount of weight gain over the past several days. The patient was given a dose of Lasix yesterday. In addition the patient was having episodes of SVTs throughout his current hospitalization and he was treated with adenosine and currently is on amiodarone orally 5 mg by mouth twice a day and his cardiac rhythm is normalized and his in sinus rhythm. Echocardiogram, the patient has an ejection fraction of 6065%. The rhythm to Doxil septal motion abnormality consistent with right ventricular volume/strain pattern. Of interest also is development of acute kidney injury. The patient came in initially with a normal renal function. Subsequently creatinine came up to 1.7 and currently is up to 2.41. He was given a dose of Lasix yesterday and none since yesterday. The patient is nonoliguric. The net fluid balance over the past 24 hours is +825 mL. He is having loose liquidy bowel movement. He is currently on vital 1.2 at the rate of 35 mL an hour. He is sedated with Diprivan. Lower oximetry is a swallow with extensive swelling of the right lower extremity which also has a DVT. The patient is having on and off low- grade fever and the patient is currently on IV Ancef. Most recent hemoglobin is at 8.0. White cell count is not elevated at 7.1. He remains on IV heparin regarding the massive bilateral pulmonary embolism. Reevaluated today on 09/21/2018, patient remains off sedation for the last 2 days, minimal slow improvement in his overall mentation, patient is lethargic, arousable, follows very simple commands, like squeezing hands and wiggling toes. He seems to be profoundly weak, unable to move extremities against gravity. His ventilator settings are tidal volume of 500 assist control rate of 20 FiO2 of 40% and PEEP of 5. ABG this morning showed a pO2 of 115 pCO2 of 51 pH of 7.33. His labs were all reviewed including WBC count of 17.3 hemoglobin of 9.0. Electrolytes were noted to be relatively normal however his BUN is 97 creatinine is 4.82, patient remains on hemodialysis via a dialysis catheter in the right groin. Chest x-ray continues to show evidence of congestive heart failure possibly basilar effusions noted. Patient was reevaluated today on 09/22/2018, remains on mechanical ventilation, remained generally weak, follows very simple instructions but extremely weak, patient does not have a good gag reflex, cannot maintain a good eye contact, cannot raise his arms or legs against gravity, and he is profoundly weak. His ventilator settings are tidal volume of 500 assist control rate of 20 FiO2 of 40 % and PEEP of 5. Chest x-ray is showing now some component of interstitial edema. Pneumonia is not entirely ruled out. ABG this morning showed a pO2 of 99 pCO2 of 49 pH of 7.46. Renal functioning remains poor, BUN is 88 creatinine 4.68. WBC count is 15.8 hemoglobin is 8.8. Apparently the patient sustained acute kidney injury secondary to ATN from hypotension. Remains hemodialysis dependent. Patient remains on IV heparin and he was initially given TPA. Presently in sinus rhythm. And clearly the chest x-ray is consistent with mild pulmonary edema. Patient was reevaluated today on 09/23/2018, remains on the same ventilatory settings, patient is hemodynamically stable, remains on heparin, Mental status and neurological status is basically about the same, patient opens eyes, follows very simple instructions, but he is profoundly weak. Cannot even raise his hands or legs against gravity. He could squeeze hands, wiggling toes, and he does not maintain a good eye contact. He is scheduled to have a PEG tube placement and tracheostomy today. His heparin has been on hold for the last 4 hours. All his labs were reviewed, chest x-ray was also reviewed. Patient remains on hemodialysis on a daily basis as per nephrology. ABG today showed a pO2 of 103 pCO2 of 54 pH of 7.31. Chest x-ray continues to show small bilateral pleural effusions mostly consistent with pulmonary edema and fluid overload secondary to his renal failure and recent cardiopulmonary arrest. Strongly doubt pneumonia. Reevaluated today on 09/24/2018, patient remains on the same ventilatory settings , mental status is basically about the same, overall neurological status is basically the same, patient underwent tracheostomy and PEG tube placement yesterday. Both procedures were uneventful. Patient was placed back on heparin last night, and he remains on heparin. However nephrology is having issues with a dialysis catheter, and may have to come out, and we may have to hold heparin again. I instructed the nurses to hold the heparin for a couple of hours before the catheter is removed, and if no plans to place a dialysis catheter again patient should be started on Xarelto instead. However if they are planning to place the catheter again, patient will need to go back on heparin after the catheter is removed. Labs were reviewed, pO2 is 109 pCO2 of 49 pH of 7.34. CBC is relatively unremarkable, WBC count is 12.7 hemoglobin is 9.4. Renal profile remains poor with BUN of 72 creatinine of 3.78. Patient is clinically about the same, no change whatsoever except now he has a tracheostomy and a PEG tube. Opens eyes, follows very simple instructions mostly wiggling toes and squeezing hands, otherwise he is profoundly weak. Reevaluated today on 09/25/2018, patient remains on mechanical ventilation, however earlier this morning he was placed on pressure support of 8 and CPAP, and he seems to be doing excellent, good tidal volumes, reasonable a respiratory rate in the 20s, patient is definitely more awake today, he is able to hold his hands and arms against gravity. Seems to be more responsive, even his eye contact seems to be better. His dialysis catheter was removed yesterday , he is now on Xarelto, and at this point at least no plans to place a dialysis catheter again. Patient continues to have good urine output. Chest x-ray continues to show some atelectasis, possibly infiltrates in the lower lobes. ABG showed a pO2 of 91 pCO2 of 46 pH of 7.40. CBC is relatively normal. Electrolytes are normal BUN is 72 creatinine is 3.81. Seen by neurology yesterday, felt that the patient has metabolic encephalopathy which is expected. EEG is being performed this morning, results are pending. Patient is tolerating PEG tube feeding nicely, and his tracheostomy seems to be intact. Objective - Vital Signs Vital signs: Vital Signs Temp 98.7 F 09/25/18 12:00 Pulse 90 09/25/18 14:00 Resp 13 09/25/18 14:00 BP 149/69 09/25/18 13:00 Pulse Ox 93 L 09/25/18 14:00 Intake & Output 09/24/18 09/25/18 09/25/18 18:59 06:59 18:59 Intake Total 990.850 9819.5 884.167 Output Total 5170 990 845 Balance -4205.219 291.5 39.167 Weight 142.1 kg 142.1 kg Intake: IV 302 407.5 322.0 Bumetanide 12 mg In 88 64 Dextrose 5% in Water 192 ml @ 0.5 MG/HR 10 mls/hr IV .Q24H [facility] Rx#: [id number] Piperacillin-Tazobactam 3 50 .375 gm In Dextrose/Water 1 50ml.bag @ 12.5 mls/hr IVPB Q8H [facility] Rx#: [id number] Piperacillin-Tazobactam 3 87.5 50.0 .375 gm In Sodium Chloride 0.9% 100 ml @ 25 mls/hr IVPB Q8H [facility] Rx#: [id number] Pressure bag 72 72 48 Sodium Chloride 0.9% 1, 180 160 160 000 ml @ 20 mls/hr IV . Q24H [facility] Rx#:[id number] Intake, IV Titration 613.781 159.167 Amount Bumetanide 12 mg In 240 159.167 Dextrose 5% in Water 192 ml @ 0.5 MG/HR 10 mls/hr IV .Q24H [facility] Rx#: [id number] Heparin Sod,Pork in 0.45% 323.781 NaCl 25,000 unit In 0.45 % NaCl 1 500ml.bag @ 14.9 UNITS/KG/HR 45.95 mls/hr IV .[id number] [facility] Rx#: [id number] Sodium Chloride 0.9% 500 50 ml 500 ml @ 0 mls/hr IV . [facility] Rx#: [id number] Oral 0 Tube Feeding 49 784 343 Other 90 60 Output: Urine 1170 990 845 Other 4000 Other: Voiding Method Indwelling Catheter Indwelling Catheter Indwelling Catheter ABP, PAP, CO, CI - Last Documented Arterial Blood Pressure 143/62 - Exam Physical Exam: 52-year-old on mechanical ventilation. In no distress. Head: Atraumatic, normocephalic. Tracheostomy tube is intact. No icterus. HEENT:[ Short obese neck Neck is supple.] [No neck masses.] [No thyromegaly.] [ No JVD.] Tracheostomy is intact. Chest: [Minimal fine crackles at the bases, no rhonchi and no wheezes. Cardiac Exam: [Normal S1 and S2, no S3 gallop, no murmur.] Abdomen: [Soft, nontender, no megaly, no rebound, no guarding, normal bowel sounds.] Extremities: Minimal bipedal edema.]. Good pulses bilaterally. Neurological Exam: PERRLA, EOMI, no nystagmus, no facial asymmetry, more arousable today, able to lift and raise his arms against gravity without any difficulty. Seems to be a bit more responsive. Psychiatric: Could not be assessed. Lymphatics: No lymphadenopathy. Skin: No rashes, significant improvement in lower extremity swelling bilaterally. - Labs CBC & Chem 7: 09/25/18 04:30 09/25/18 04:30 Labs: Abnormal Lab Results - Last 24 Hours (Table) 09/24/18 09/24/18 09/25/18 Range/Units 14:15 18:11 01:01 RBC (4.30-5.90) m/uL Hgb (13.0-17.5) gm/dL Hct (39.0-53.0) % RDW (11.5-15.5) % Neutrophils # (1.3-7.7) k/uL Lymphocytes # (1.0-4.8) k/uL APTT 97.4 H (22.0-30.0) sec ABG pCO2 (35-45) mmHg ABG HCO3 (21-25) mmol/L ABG Total CO2 (19-24) mmol/L ABG O2 Saturation (94-97) % BUN (9-20) mg/dL Creatinine (0.66-1.25) mg/dL Glucose (74-99) mg/dL POC Glucose (mg/dL) 101 H 134 H (75-99) mg/dL Phosphorus (2.5-4.5) mg/dL 09/25/18 09/25/18 09/25/18 Range/Units 04:30 04:30 07:20 RBC 3.17 L (4.30-5.90) m/uL Hgb 9.5 L (13.0-17.5) gm/dL Hct 30.6 L (39.0-53.0) % RDW 16.4 H (11.5-15.5) % Neutrophils # 8.6 H (1.3-7.7) k/uL Lymphocytes # 0.9 L (1.0-4.8) k/uL APTT (22.0-30.0) sec ABG pCO2 (35-45) mmHg ABG HCO3 (21-25) mmol/L ABG Total CO2 (19-24) mmol/L ABG O2 Saturation (94-97) % BUN 72 H (9-20) mg/dL Creatinine 3.81 H (0.66-1.25) mg/dL Glucose 131 H (74-99) mg/dL POC Glucose (mg/dL) 122 H (75-99) mg/dL Phosphorus 6.3 H (2.5-4.5) mg/dL 09/25/18 09/25/18 Range/Units 07:45 11:49 RBC (4.30-5.90) m/uL Hgb (13.0-17.5) gm/dL Hct (39.0-53.0) % RDW (11.5-15.5) % Neutrophils # (1.3-7.7) k/uL Lymphocytes # (1.0-4.8) k/uL APTT (22.0-30.0) sec ABG pCO2 46 H (35-45) mmHg ABG HCO3 29 H (21-25) mmol/L ABG Total CO2 30 H (19-24) mmol/L ABG O2 Saturation 97.6 H (94-97) % BUN (9-20) mg/dL Creatinine (0.66-1.25) mg/dL Glucose (74-99) mg/dL POC Glucose (mg/dL) 130 H (75-99) mg/dL Phosphorus (2.5-4.5) mg/dL Assessment and Plan Assessment: Impression: 1 acute hypoxic respiratory failure secondary to massive bilateral pulmonary embolism. Status post cardiopulmonary arrest, status post TPA treatment, remains on heparin. Remains on mechanical ventilation. 2 massive pulmonary embolism with right ventricular strain and subsequent cardiac arrest. 3 acute metabolic encephalopathy, related to anoxic brain injury 4 acute kidney injury secondary to hypotension and acute tubular necrosis, remains on dialysis. Patient has nonoliguric renal failure, urine output is adequate, no plans to place dialysis catheter again. 5 acute deep vein thrombosis of right lower extremity, presently on heparin. 6 chronic normocytic anemia, likely multifactorial. 7 history of smoking 8 morbid obesity with BMI of 46.5 9 possible aspiration pneumonia, as noted on the chest x-ray, but not truly confirmed, chest x-ray is showing improvement with bibasilar atelectasis especially on the left side. 10 status post cardiopulmonary arrest secondary to massive pulmonary embolism. 11 status post tracheostomy and PEG tube placement on 09/23/2018. 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 Will definitely require long-term physical therapy, and long-term facility for rehabilitation. Recommendation: Reviewed the neurological consultation, my plan is to continue pressure support and CPAP today most of the day. Plan to consider a collar tomorrow, plan to consult select care specialty, continue physical therapy, continue Xarelto, patient remains critically ill, we'll discuss his issues again with his sister at bedside. Critical care time is 32 minutes. Time with Patient: Greater than 30
[2018-09-25 17:37] LABS: Glucose,Whole Blood 121 mg/dL (75-99)
--- NOTE | 2018-09-25 19:53 | P.PN ---
Subjective Progress Note Date: 09/24/18 Progress note being dictated for Dr. Culp. Interval history:Massive pulmonary embolism Acute cardiopulmonary arrest status post CPR and intubation Patient is a 52-year-old male with a known history of chronic bilateral lower extremity lymphedema and history of pulmonary embolism about a year ago, currently not taking Coumadin for the past 6-8 months came to ER with complaints of acute worsening shortness of breath since yesterday. Patient says that he has been having shortness of breath for the last couple of weeks but suddenly got worse yesterday. Patient was told that his DVT and pulmonary embolus was secondary to sedentary lifestyle and sleeping in a sitting position. Patient states he took his Coumadin for about 6 months. He was so several follow-up appointment in November for repeat evaluation however he did not follow-up with that appointment. He stopped his Coumadin in November. Denies any constitutional symptoms. Patient feels much more short of breath with exertion. Chest pain. He feels as though both of his legs are much more edematous than usual suspicion is right lower extremity. Lower extremity duplex scan showed acute DVT right popliteal vein through the proximal calf veins CTA chest showed massive bilateral pulmonary embolism with right ventricular enlargement suggestive of right ventricular strain correlate clinically. A 7 mm and 4 mm right lower lobe pulmonary nodule not seen previous exam subpleural in location could be inflammatory. WBC 14.1 Troponin 0.258 Potassium 5.3 On 09/09/2018 Patient had a brief episode of cardiopulmonary arrest this morning and developed respiratory distress. Subsequently patient was intubated and was transferred to MICU. Patient had a difficult intubation. Patient was given TPA by ER physician. Patient also received multiple doses of epinephrine and sodium bicarbonate. Patient is currently on Levophed drip. Being continued on heparin drip as well. Patient is currently sedated. Initial ABG showed pH 7.0, pCO2 80, pO2 118 Patient was seen by cardiology and pulmonary. 09/10/2018 Patient is currently mechanically ventilated and sedated. Patient is being continued on heparin drip. Continues to be on Levothroid drip. Patient had SVT during cardiopulmonary arrest. Patient was started on amiodarone.. Otherwise hemoglobin dropped to 10.7 today. Continues to have bloody secretions which is being suctioned. Chest x-ray showed bilateral pleural effusion and consolidation. AST 559 and ALT 509 albumin 2.6. Cultures negative so far. Creatinine 1.76. 09/11/2018 52-year-old gentleman with a history of massive bilateral pulmonary embolism right ventricular enlargement and right heart strain. He did receive systemic TPA and was on IV heparin until yesterday which time was turned off because of ongoing bleeding. The patient's overall prognosis remains very guarded. The patient remains on ventilator. Arterial blood gases show a PaO2 of 113 PaCO2 38 and a pH of 7.4. The patient is on saline at 75 mL an hour; Heparin was discontinued yesterday because of ongoing bleeding from the cavity and NG tube. In addition, he's had about a 1 g hemoglobin drop on a daily basis. This morning's hemoglobin is 9.9. 09/12/2018; The patient's overall prognosis remains very guarded. The patient was given a daily interruption of sedation today but could not have a spontaneous breathing trial because he became very tachypnea with respiratory rates above 40. Currently, he is on the volume assist control mode rate of 32, tidal volume 500 , FiO2 35% to be increased to 40% and 5 of PEEP. Arterial blood gases showed a PaO2 of 59 a PaCO2 of 43 and a pH 7.37. That was on 35% FiO2. In addition, the patient's on norepinephrine at 7 mics per minute, propofol at 65 mcg/kg/m, saline IV at 75 mL an hour, heparin via weightbase protocol and vital 1.2 at goal. Chest x-ray shows bilateral effusions with basilar atelectasis and/or infiltrates. On 09/15/2018 Patient currently on mechanical ventilation with assist control and sedation. Patient is being continued on IV heparin. Hemoglobin is 7.5. Renal function slightly worsened with increasing creatinine level 3.56. No active bleeding noted. Chest x-ray showed bilateral pleural effusion and pulmonary vascular congestion. Patient was given a dose of Lasix previously. Patient is currently on antibiotics in the form of Zosyn. 09/16/2018 Patient was seen and examined in the MICU. Currently maintained on mechanical ventilator. Hemoglobin dropped to 5.9 today. 2 units of PRBC was ordered. No signs of active bleeding noted. Patient is being continued on IV heparin. Chest x-ray showed evidence of bilateral consolidation and pleural effusion. Correlate for pulmonary edema and diffuse pneumonia. Currently on Lasix drip. Creatinine level increased to 3.89 today. Otherwise patient is getting empiric antibiotics for possible pneumonia aspiration likely. Patient is being followed by pulmonary cardiology and nephrology. 09/17/2018 Patient is currently on mechanical ventilator. Chest x-ray showed possible fluid overload/pneumonia. Creatinine is trending up at 4.7 today. Hemoglobin is 7.6. Continued on IV heparin. held for permacath placement. Nephrology is planning for hemodialysis. No fever no chills. 09/20/2018 Patient is on mechanical ventilator. Patient is off sedation and is able to blink his eyes. Patient is being continued on hemodialysis. Patient had 3 hemodialysis sessions last one yesterday. Continued on IV antibiotics the form of Zosyn. Leukocytosis slightly improved to 23.7, hemoglobin 9.5 No other acute overnight issues. 09/21/2018 Patient remained on mechanical ventilator. Off sedation and also support. Patient does have slight improvement in mental status. Patient is extremely lethargic and follows simple commands. Hemoglobin is 9.0. Leukocytosis is improved to 17.3. Patient is getting hemodialysis today. Creatinine level IV.82. Chest x-ray showed evidence of congestive heart failure and pleural effusion noted. Patient is afebrile. Blood pressure is maintained. Active Medications Active Medications Generic Name Dose Route Start Last Admin Trade Name Freq PRN Reason Stop Dose Admin Albuterol/Ipratropium 3 ml 09/09/18 09:37 Duoneb 0.5 Mg-3 Mg/3 Ml Soln INHALATION RT-Q2H PRN Shortness Of Breath Or Wheezing Albuterol/Ipratropium 3 ml 09/09/18 12:00 09/20/18 23:21 Duoneb 0.5 Mg-3 Mg/3 Ml Soln INHALATION 3 ml RT-Q4H GIOVANNY Administration Amiodarone HCl 200 mg 09/20/18 21:00 09/20/18 22:29 Cordarone PO 200 mg BID GIOVANNY Administration Calcium Acetate 667 mg 09/17/18 07:30 09/20/18 17:14 Phoslo PO 667 mg TID-W/MEALS GIOVANNY Administration Chlorhexidine Gluconate 15 ml 09/09/18 21:00 09/20/18 22:29 Peridex MUCOUS MEM 15 ml BID GIOVANNY Administration Heparin Sodium (Porcine) 0 unit 09/08/18 10:49 09/09/18 04:34 Heparin IV 4,000 unit PER PROTOCOL PRN Administration Low PTT Protocol Hydralazine HCl 10 mg 09/18/18 21:19 09/20/18 04:53 Apresoline IVP 10 mg Q4HR PRN Administration Blood Pressure - High Hydralazine HCl 25 mg 09/20/18 09:30 09/20/18 22:29 Apresoline PO 25 mg QID GIOVANNY Administration Hydromorphone HCl 1 mg 09/10/18 17:33 09/20/18 18:01 Dilaudid IVP 1 mg Q1HR PRN Administration Mild to Moderate Pain Hydromorphone HCl 2 mg 09/10/18 17:33 09/20/18 21:18 Dilaudid IVP 2 mg Q1HR PRN Administration Moderate to Severe Pain Heparin Sodium/Sodium Chloride 500 mls @ 45.95 mls/hr 09/08/18 11:00 11:50 25,000 unit/ Sodium Chloride IV 16 units/kg/hr .[id number] GIOVANNY 49.35 mls/hr Administration Protocol 14.9 UNITS/KG/HR Propofol 1,000 mg/ IV Solution 100 mls @ 0 mls/hr 09/09/18 09:45 09/18/18 09: 02 IV 0 mcg/kg/min .Q0M GIOVANNY 0 mls/hr Titration Protocol Titrate Norepinephrine Bitartrate 16 250 mls @ 0 mls/hr 09/09/18 10:00 09/15/18 14:40 mg/ Sodium Chloride IV 0 mcg/min .Q0M GIOVANNY 0 mls/hr Titration Protocol Titrate Sodium Chloride 1,000 mls @ 20 mls/hr 09/10/18 12:45 09/20/18 22:31 Saline 0.9% IV 20 mls/hr .Q24H GIOVANNY Administration Acetaminophen 1,000 mg/ IV 100 mls @ 400 mls/hr 09/13/18 20:44 09/13/18 21:55 Solution IVPB 400 mls/hr ONCE PRN Administration Fever>101 Piperacillin/Tazobactam/ 50 mls @ 12.5 mls/hr 09/14/18 10:00 09/20/18 18:01 Dextrose 3.375 gm/ IV Solution IVPB 12.5 mls/hr Q8H GIOVANNY Administration Bumetanide 12 mg/ Dextrose/ 240 mls @ 10 mls/hr 09/18/18 10:30 09/20/18 09:56 Water IV 0.5 mg/hr .Q24H GIOVANNY 10 mls/hr Administration 0.5 MG/HR Insulin Aspart 0 unit 09/10/18 06:00 09/20/18 18:08 Novolog SQ Not Given Q6HR [facility] Protocol Miscellaneous Information 1 each 09/10/18 16:16 Potassium Per Protocol MISCELLANE DAILY PRN Per Protocol Protocol Miscellaneous Information 1 each 09/10/18 22:11 Magnesium Per Protocol MISCELLANE DAILY PRN Per Protocol Protocol Multivitamins 1 each 09/09/18 12:00 09/20/18 11:49 Theragran PO 1 each DAILY@1200 GIOVANNY Administration Naloxone HCl 0.2 mg 09/08/18 15:00 Narcan IV Q2M PRN Opioid Reversal Pantoprazole Sodium 40 mg 09/10/18 09:00 09/20/18 08:25 Protonix IVP 40 mg DAILY GIOVANNY Administration 09/22/2018 continues on mechanical ventilation, FiO2 40%/+5 of PEEP. Maintained on heparin drip, Bumex drip and daily hemodialysis. Tolerating breathing trial today, currently up to 1-1/2 hours. Telemetry sinus rhythm. Chest x-ray reporting possible CHF with pleural effusions, possible pneumonia. Staff reports patient following commands but not tracking with eyes.significant generalized weakness .Brain CT non acute. Creatinine 4.68, hemoglobin 8.8. 09/23/2018 remains vent dependent, FiO2 40%/+5 of PEEP. Chest x-ray reporting persistent small bilateral pleural effusions consistent with pulmonary edema/ fluid overload , possible pneumonia .Scheduled for tracheostomy and PEG tube placement today .Maintained on heparin drip, daily hemodialysis. Opens eyes to his name, but does not make eye contact, no tracking. follows simple commands. Significant weakness. 09/24/2018 status post tracheostomy and PEG yesterday , tolerated procedure well . oozy tracheostomy site.maintained on heparin drip .continues on FiO2 40%/ +5 of PEEP.Dialysis catheter issues, catheter removal being discussed. Creatinine 3.78. Continues to follow simple commands with significant weakness. Neurology evaluation pending. CPAP trials. Objective - Vital Signs Vital signs: Vital Signs Temp 98.5 F 09/24/18 16:00 Pulse 107 H 11/01/18 17:00 Resp 15 09/24/18 17:00 BP 142/79 09/24/18 17:00 Pulse Ox 96 09/24/18 17:00 Intake & Output 09/23/18 09/24/18 09/24/18 18:59 06:59 18:59 Intake Total 947.717 488.219 609.781 Output Total 1117 1055 5130 Balance -169.283 -566.781 -4520.219 Weight 147.9 kg 142.1 kg Intake: IV 606 312 286 Piperacillin-Tazobactam 3 100 50 .375 gm In Dextrose/Water 1 50ml.bag @ 12.5 mls/hr IVPB Q8H GIOVANNY Rx#: [id number] Pressure bag 66 72 66 Sodium Chloride 0.9% 1, 240 240 170 000 ml @ 20 mls/hr IV . Q24H GIOVANNY Rx#:[id number] Intake, IV Titration 341.717 176.219 323.781 Amount Bumetanide 12 mg In 153.333 Dextrose 5% in Water 192 ml @ 0.5 MG/HR 10 mls/hr IV .Q24H GIOVANNY Rx#: [id number] Heparin Sod,Pork in 0.45% 188.384 176.219 323.781 NaCl 25,000 unit In 0.45 % NaCl 1 500ml.bag @ 14.9 UNITS/KG/HR 45.95 mls/hr IV .[id number] GIOVANNY Rx#: [id number] Oral 0 Tube Feeding 0 0 Output: Urine 1116 1055 1130 Stool 1 Other 4000 Other: Voiding Method Indwelling Catheter Indwelling Catheter Indwelling Catheter ABP, PAP, CO, CI - Last Documented Arterial Blood Pressure 137/68 - Exam Patient is lying in the bed comfortably, currently intubated HEENT: Normocephalic. Neck is supple. Pupils equal and reactive. Neck unable to assess JVD-short neck, supple, carotid bruits, or thyromegaly. CHEST EXAMINATION: Trachea is central. Symmetrical expansion. Bibasilar diminished air entry and crackles present. No rhonchi, no wheezing CARDIAC: Normal S1, S2 with no gallops. No murmurs ABDOMEN: Soft. Bowel sounds normal. No organomegaly. No abdominal bruits. Extremities: Bilateral lower extremity lymphedema with improving edema. Neurologically/Psychiatric . Patient is awake. Extremity weak. Unable to assess, patient intubated. Skin: No rashes. - Labs CBC & Chem 7: 09/25/18 04:30 09/25/18 13:26 Labs: Abnormal Lab Results - Last 24 Hours (Table) 09/24/18 09/24/18 09/24/18 Range/Units 00:00 04:47 04:47 WBC 12.7 H (3.8-10.6) k/uL RBC 3.10 L (4.30-5.90) m/uL Hgb 9.4 L (13.0-17.5) gm/dL Hct 29.3 L (39.0-53.0) % RDW 16.4 H (11.5-15.5) % Neutrophils # 10.0 H (1.3-7.7) k/uL APTT 96.6 H (22.0-30.0) sec ABG pH (7.35-7.45) ABG pCO2 (35-45) mmHg ABG pO2 (83-108) mmHg ABG HCO3 (21-25) mmol/L ABG Total CO2 (19-24) mmol/L ABG O2 Saturation (94-97) % BUN 72 H (9-20) mg/dL Creatinine 3.78 H (0.66-1.25) mg/dL Phosphorus 7.0 H (2.5-4.5) mg/dL Magnesium 2.4 H (1.6-2.3) mg/dL 09/24/18 09/24/18 09/24/18 Range/Units 04:47 07:45 14:15 WBC (3.8-10.6) k/uL RBC (4.30-5.90) m/uL Hgb (13.0-17.5) gm/dL Hct (39.0-53.0) % RDW (11.5-15.5) % Neutrophils # (1.3-7.7) k/uL APTT 42.2 H 97.4 H (22.0-30.0) sec ABG pH 7.34 L (7.35-7.45) ABG pCO2 49 H (35-45) mmHg ABG pO2 109 H (83-108) mmHg ABG HCO3 26 H (21-25) mmol/L ABG Total CO2 28 H (19-24) mmol/L ABG O2 Saturation 98.2 H (94-97) % BUN (9-20) mg/dL Creatinine (0.66-1.25) mg/dL Phosphorus (2.5-4.5) mg/dL Magnesium (1.6-2.3) mg/dL Assessment and Plan Assessment: Acute cardiopulmonary arrest likely due to pulmonary embolism. Status post CPR and spontaneous return of circulation. Currently mechanical ventilator - dependent. Acute hypercapnic, hypoxic respiratory failure secondary to massive bilateral pulmonary embolism. Currently mechanical ventilator -dependent. Status post tracheostomy and PEG tube placement Massive pulmonary embolism with right ventricular strain. Patient was given TPA during CPR Acute hypotension . S/P pressor support. 2-D echocardiogram showed normal LV function Pulmonary edema Possible right lower lobe pneumonia Nonoliguric acute kidney injury due to ATN. Started on hemodialysis during this admission. Acute on chronic anemia. Possible acute blood loss anemia Elevated troponin level secondary to right ventricular strain Acute lower extremity DVT Family history of pulmonary embolism in his brother Recent history of pulmonary embolism about a year ago. Stopped taking Coumadin since November 2017 Previous history of smoking Bilateral lower extremity chronic lymphedema Morbid obesity with BMI 43.7 Seborrheic dermatitis history Anxiety Plan: Continue on current medication regime ,monitoring and symptomatic treatment. Hemodialysis catheter removal being discussed as per nephrology. Neurology consult in place, recommendations pending. Sister updated at bedside. Prognosis guarded given multiple complex medical issues. Further recommendations to follow The impression and plan of care has been dictated as directed. : I performed a history and examination of this patient, discussed the same with the dictator. I agree with the dictator's note ,documented as a scribe. Any additional findings or plans will be noted.
--- NOTE | 2018-09-25 20:03 | P.PN ---
Subjective Progress Note Date: 09/25/18 Progress note being dictated for Dr. Jacobo Interval history:Massive pulmonary embolism Acute cardiopulmonary arrest status post CPR and intubation Patient is a 52-year-old male with a known history of chronic bilateral lower extremity lymphedema and history of pulmonary embolism about a year ago, currently not taking Coumadin for the past 6-8 months came to ER with complaints of acute worsening shortness of breath since yesterday. Patient says that he has been having shortness of breath for the last couple of weeks but suddenly got worse yesterday. Patient was told that his DVT and pulmonary embolus was secondary to sedentary lifestyle and sleeping in a sitting position. Patient states he took his Coumadin for about 6 months. He was so several follow-up appointment in November for repeat evaluation however he did not follow-up with that appointment. He stopped his Coumadin in November. Denies any constitutional symptoms. Patient feels much more short of breath with exertion. Chest pain. He feels as though both of his legs are much more edematous than usual suspicion is right lower extremity. Lower extremity duplex scan showed acute DVT right popliteal vein through the proximal calf veins CTA chest showed massive bilateral pulmonary embolism with right ventricular enlargement suggestive of right ventricular strain correlate clinically. A 7 mm and 4 mm right lower lobe pulmonary nodule not seen previous exam subpleural in location could be inflammatory. WBC 14.1 Troponin 0.258 Potassium 5.3 On 09/09/2018 Patient had a brief episode of cardiopulmonary arrest this morning and developed respiratory distress. Subsequently patient was intubated and was transferred to MICU. Patient had a difficult intubation. Patient was given TPA by ER physician. Patient also received multiple doses of epinephrine and sodium bicarbonate. Patient is currently on Levophed drip. Being continued on heparin drip as well. Patient is currently sedated. Initial ABG showed pH 7.0, pCO2 80, pO2 118 Patient was seen by cardiology and pulmonary. 09/10/2018 Patient is currently mechanically ventilated and sedated. Patient is being continued on heparin drip. Continues to be on Levothroid drip. Patient had SVT during cardiopulmonary arrest. Patient was started on amiodarone.. Otherwise hemoglobin dropped to 10.7 today. Continues to have bloody secretions which is being suctioned. Chest x-ray showed bilateral pleural effusion and consolidation. AST 559 and ALT 509 albumin 2.6. Cultures negative so far. Creatinine 1.76. 09/11/2018 52-year-old gentleman with a history of massive bilateral pulmonary embolism right ventricular enlargement and right heart strain. He did receive systemic TPA and was on IV heparin until yesterday which time was turned off because of ongoing bleeding. The patient's overall prognosis remains very guarded. The patient remains on ventilator. Arterial blood gases show a PaO2 of 113 PaCO2 38 and a pH of 7.4. The patient is on saline at 75 mL an hour; Heparin was discontinued yesterday because of ongoing bleeding from the cavity and NG tube. In addition, he's had about a 1 g hemoglobin drop on a daily basis. This morning's hemoglobin is 9.9. 09/12/2018; The patient's overall prognosis remains very guarded. The patient was given a daily interruption of sedation today but could not have a spontaneous breathing trial because he became very tachypnea with respiratory rates above 40. Currently, he is on the volume assist control mode rate of 32, tidal volume 500 , FiO2 35% to be increased to 40% and 5 of PEEP. Arterial blood gases showed a PaO2 of 59 a PaCO2 of 43 and a pH 7.37. That was on 35% FiO2. In addition, the patient's on norepinephrine at 7 mics per minute, propofol at 65 mcg/kg/m, saline IV at 75 mL an hour, heparin via weightbase protocol and vital 1.2 at goal. Chest x-ray shows bilateral effusions with basilar atelectasis and/or infiltrates. On 09/15/2018 Patient currently on mechanical ventilation with assist control and sedation. Patient is being continued on IV heparin. Hemoglobin is 7.5. Renal function slightly worsened with increasing creatinine level 3.56. No active bleeding noted. Chest x-ray showed bilateral pleural effusion and pulmonary vascular congestion. Patient was given a dose of Lasix previously. Patient is currently on antibiotics in the form of Zosyn. 09/16/2018 Patient was seen and examined in the MICU. Currently maintained on mechanical ventilator. Hemoglobin dropped to 5.9 today. 2 units of PRBC was ordered. No signs of active bleeding noted. Patient is being continued on IV heparin. Chest x-ray showed evidence of bilateral consolidation and pleural effusion. Correlate for pulmonary edema and diffuse pneumonia. Currently on Lasix drip. Creatinine level increased to 3.89 today. Otherwise patient is getting empiric antibiotics for possible pneumonia aspiration likely. Patient is being followed by pulmonary cardiology and nephrology. 09/17/2018 Patient is currently on mechanical ventilator. Chest x-ray showed possible fluid overload/pneumonia. Creatinine is trending up at 4.7 today. Hemoglobin is 7.6. Continued on IV heparin. held for permacath placement. Nephrology is planning for hemodialysis. No fever no chills. 09/20/2018 Patient is on mechanical ventilator. Patient is off sedation and is able to blink his eyes. Patient is being continued on hemodialysis. Patient had 3 hemodialysis sessions last one yesterday. Continued on IV antibiotics the form of Zosyn. Leukocytosis slightly improved to 23.7, hemoglobin 9.5 No other acute overnight issues. 09/21/2018 Patient remained on mechanical ventilator. Off sedation and also support. Patient does have slight improvement in mental status. Patient is extremely lethargic and follows simple commands. Hemoglobin is 9.0. Leukocytosis is improved to 17.3. Patient is getting hemodialysis today. Creatinine level IV.82. Chest x-ray showed evidence of congestive heart failure and pleural effusion noted. Patient is afebrile. Blood pressure is maintained. Active Medications Active Medications Generic Name Dose Route Start Last Admin Trade Name Freq PRN Reason Stop Dose Admin Albuterol/Ipratropium 3 ml 09/09/18 09:37 Duoneb 0.5 Mg-3 Mg/3 Ml Soln INHALATION RT-Q2H PRN Shortness Of Breath Or Wheezing Albuterol/Ipratropium 3 ml 09/09/18 12:00 09/20/18 23:21 Duoneb 0.5 Mg-3 Mg/3 Ml Soln INHALATION 3 ml RT-Q4H GIOVANNY Administration Amiodarone HCl 200 mg 09/20/18 21:00 09/20/18 22:29 Cordarone PO 200 mg BID GIOVANNY Administration Calcium Acetate 667 mg 09/17/18 07:30 09/20/18 17:14 Phoslo PO 667 mg TID-W/MEALS GIOVANNY Administration Chlorhexidine Gluconate 15 ml 09/09/18 21:00 09/20/18 22:29 Peridex MUCOUS MEM 15 ml BID GIOVANNY Administration Heparin Sodium (Porcine) 0 unit 09/08/18 10:49 09/09/18 04:34 Heparin IV 4,000 unit PER PROTOCOL PRN Administration Low PTT Protocol Hydralazine HCl 10 mg 09/18/18 21:19 09/20/18 04:53 Apresoline IVP 10 mg Q4HR PRN Administration Blood Pressure - High Hydralazine HCl 25 mg 09/20/18 09:30 09/20/18 22:29 Apresoline PO 25 mg QID GIOVANNY Administration Hydromorphone HCl 1 mg 09/10/18 17:33 09/20/18 18:01 Dilaudid IVP 1 mg Q1HR PRN Administration Mild to Moderate Pain Hydromorphone HCl 2 mg 09/10/18 17:33 09/20/18 21:18 Dilaudid IVP 2 mg Q1HR PRN Administration Moderate to Severe Pain Heparin Sodium/Sodium Chloride 500 mls @ 45.95 mls/hr 09/08/18 11:00 11:50 25,000 unit/ Sodium Chloride IV 16 units/kg/hr .[id number] GIOVANNY 49.35 mls/hr Administration Protocol 14.9 UNITS/KG/HR Propofol 1,000 mg/ IV Solution 100 mls @ 0 mls/hr 09/09/18 09:45 09/18/18 09: 02 IV 0 mcg/kg/min .Q0M GIOVANNY 0 mls/hr Titration Protocol Titrate Norepinephrine Bitartrate 16 250 mls @ 0 mls/hr 09/09/18 10:00 09/15/18 14:40 mg/ Sodium Chloride IV 0 mcg/min .Q0M GIOVANNY 0 mls/hr Titration Protocol Titrate Sodium Chloride 1,000 mls @ 20 mls/hr 09/10/18 12:45 09/20/18 22:31 Saline 0.9% IV 20 mls/hr .Q24H GIOVANNY Administration Acetaminophen 1,000 mg/ IV 100 mls @ 400 mls/hr 09/13/18 20:44 09/13/18 21:55 Solution IVPB 400 mls/hr ONCE PRN Administration Fever>101 Piperacillin/Tazobactam/ 50 mls @ 12.5 mls/hr 09/14/18 10:00 09/20/18 18:01 Dextrose 3.375 gm/ IV Solution IVPB 12.5 mls/hr Q8H GIOVANNY Administration Bumetanide 12 mg/ Dextrose/ 240 mls @ 10 mls/hr 09/18/18 10:30 09/20/18 09:56 Water IV 0.5 mg/hr .Q24H GIOVANNY 10 mls/hr Administration 0.5 MG/HR Insulin Aspart 0 unit 09/10/18 06:00 09/20/18 18:08 Novolog SQ Not Given Q6HR [facility] Protocol Miscellaneous Information 1 each 09/10/18 16:16 Potassium Per Protocol MISCELLANE DAILY PRN Per Protocol Protocol Miscellaneous Information 1 each 09/10/18 22:11 Magnesium Per Protocol MISCELLANE DAILY PRN Per Protocol Protocol Multivitamins 1 each 09/09/18 12:00 09/20/18 11:49 Theragran PO 1 each DAILY@1200 GIOVANNY Administration Naloxone HCl 0.2 mg 09/08/18 15:00 Narcan IV Q2M PRN Opioid Reversal Pantoprazole Sodium 40 mg 09/10/18 09:00 09/20/18 08:25 Protonix IVP 40 mg DAILY GIOVANNY Administration 09/22/2018 continues on mechanical ventilation, FiO2 40%/+5 of PEEP. Maintained on heparin drip, Bumex drip and daily hemodialysis. Tolerating breathing trial today, currently up to 1-1/2 hours. Telemetry sinus rhythm. Chest x-ray reporting possible CHF with pleural effusions, possible pneumonia. Staff reports patient following commands but not tracking with eyes.significant generalized weakness .Brain CT non acute. Creatinine 4.68, hemoglobin 8.8. 09/23/2018 remains vent dependent, FiO2 40%/+5 of PEEP. Chest x-ray reporting persistent small bilateral pleural effusions consistent with pulmonary edema/ fluid overload , possible pneumonia .Scheduled for tracheostomy and PEG tube placement today .Maintained on heparin drip, daily hemodialysis. Opens eyes to his name, but does not make eye contact, no tracking. follows simple commands. Significant weakness. 09/24/2018 status post tracheostomy and PEG yesterday , tolerated procedure well . oozy tracheostomy site.maintained on heparin drip .continues on FiO2 40%/ +5 of PEEP.Dialysis catheter issues, catheter removal being discussed. Creatinine 3.78. Continues to follow simple commands with significant weakness. Neurology evaluation pending. CPAP trials. 09/25/2018 currently on CPAP trials. Tolerating tube feedings with minimal to no residual. Evaluated by neurology, neuro workup in progress including EEG and repeat head CT ordered. Hemodialysis catheter discontinued; no plans for replacement of dialysis catheter per nephrology at this time. Continues on Bumex drip with good urine output. Creatinine 3.8. Now anticoagulated on Xarelto. Tracheostomy site less oozy. Objective - Vital Signs Vital signs: Vital Signs Temp 98.3 F 09/25/18 16:00 Pulse 92 09/25/18 19:33 Resp 8 L 09/25/18 19:00 BP 144/62 09/25/18 18:00 Pulse Ox 95 09/25/18 19:00 Intake & Output 09/25/18 09/25/18 09/26/18 06:59 18:59 06:59 Intake Total 1281.5 1305.167 Output Total 990 1450 Balance 291.5 -144.833 Weight 142.9 kg Intake: IV 407.5 517.0 Bumetanide 12 mg In 88 104 Dextrose 5% in Water 192 ml @ 0.5 MG/HR 10 mls/hr IV .Q24H GIOVANNY Rx#: [id number] Piperacillin-Tazobactam 3 87.5 75.0 .375 gm In Sodium Chloride 0.9% 100 ml @ 25 mls/hr IVPB Q8H GIOVANNY Rx#: [id number] Pressure bag 72 78 Sodium Chloride 0.9% 1, 160 260 000 ml @ 20 mls/hr IV . Q24H GIOVANNY Rx#:[id number] Intake, IV Titration 159.167 Amount Bumetanide 12 mg In 159.167 Dextrose 5% in Water 192 ml @ 0.5 MG/HR 10 mls/hr IV .Q24H GIOVANNY Rx#: [id number] Oral 0 Tube Feeding 784 539 Other 90 90 Output: Urine 990 1450 Other: Voiding Method Indwelling Catheter Indwelling Catheter ABP, PAP, CO, CI - Last Documented Arterial Blood Pressure 124/94 - Exam Patient is lying in the bed comfortably, currently intubated , no acute distress HEENT: Normocephalic. Neck is supple. Pupils equal and reactive. Mucous membranes moist Neck unable to assess JVD-short neck, supple, carotid bruits, or thyromegaly. CHEST EXAMINATION: Trachea is central. Symmetrical expansion. Bibasilar diminished air entry and crackles present. No rhonchi, no wheezing CARDIAC: Normal S1, S2 with no gallops. No murmurs ABDOMEN: Soft. Bowel sounds normal. No organomegaly. No abdominal bruits. Extremities: Bilateral lower extremity lymphedema with improving edema. Neurologically/Psychiatric . Patient is awake. Extremity weak. Unable to assess, patient intubated. Skin: No rashes. - Labs CBC & Chem 7: 09/25/18 04:30 09/25/18 13:26 Labs: Abnormal Lab Results - Last 24 Hours (Table) 09/25/18 09/25/18 09/25/18 Range/Units 01:01 04:30 04:30 RBC 3.17 L (4.30-5.90) m/uL Hgb 9.5 L (13.0-17.5) gm/dL Hct 30.6 L (39.0-53.0) % RDW 16.4 H (11.5-15.5) % Neutrophils # 8.6 H (1.3-7.7) k/uL Lymphocytes # 0.9 L (1.0-4.8) k/uL ABG pCO2 (35-45) mmHg ABG HCO3 (21-25) mmol/L ABG Total CO2 (19-24) mmol/L ABG O2 Saturation (94-97) % BUN 72 H (9-20) mg/dL Creatinine 3.81 H (0.66-1.25) mg/dL Glucose 131 H (74-99) mg/dL POC Glucose (mg/dL) 134 H (75-99) mg/dL Phosphorus 6.3 H (2.5-4.5) mg/dL 09/25/18 09/25/18 09/25/18 Range/Units 07:20 07:45 11:49 RBC (4.30-5.90) m/uL Hgb (13.0-17.5) gm/dL Hct (39.0-53.0) % RDW (11.5-15.5) % Neutrophils # (1.3-7.7) k/uL Lymphocytes # (1.0-4.8) k/uL ABG pCO2 46 H (35-45) mmHg ABG HCO3 29 H (21-25) mmol/L ABG Total CO2 30 H (19-24) mmol/L ABG O2 Saturation 97.6 H (94-97) % BUN (9-20) mg/dL Creatinine (0.66-1.25) mg/dL Glucose (74-99) mg/dL POC Glucose (mg/dL) 122 H 130 H (75-99) mg/dL Phosphorus (2.5-4.5) mg/dL 09/25/18 Range/Units 17:35 RBC (4.30-5.90) m/uL Hgb (13.0-17.5) gm/dL Hct (39.0-53.0) % RDW (11.5-15.5) % Neutrophils # (1.3-7.7) k/uL Lymphocytes # (1.0-4.8) k/uL ABG pCO2 (35-45) mmHg ABG HCO3 (21-25) mmol/L ABG Total CO2 (19-24) mmol/L ABG O2 Saturation (94-97) % BUN (9-20) mg/dL Creatinine (0.66-1.25) mg/dL Glucose (74-99) mg/dL POC Glucose (mg/dL) 121 H (75-99) mg/dL Phosphorus (2.5-4.5) mg/dL Assessment and Plan Assessment: Acute cardiopulmonary arrest likely due to pulmonary embolism. Status post CPR and spontaneous return of circulation. Currently mechanical ventilator - dependent. Acute hypercapnic, hypoxic respiratory failure secondary to massive bilateral pulmonary embolism. Currently mechanical ventilator -dependent. Status post tracheostomy and PEG tube placement Massive pulmonary embolism with right ventricular strain. Patient was given TPA during CPR Acute hypotension . S/P pressor support. 2-D echocardiogram showed normal LV function Pulmonary edema Possible right lower lobe pneumonia Nonoliguric acute kidney injury due to ATN. Started on hemodialysis during this admission. Acute on chronic anemia. Possible acute blood loss anemia Elevated troponin level secondary to right ventricular strain Acute lower extremity DVT Family history of pulmonary embolism in his brother Recent history of pulmonary embolism about a year ago. Stopped taking Coumadin since November 2017 Previous history of smoking Bilateral lower extremity chronic lymphedema Morbid obesity with BMI 43.7 Seborrheic dermatitis history Anxiety Plan: Continue on current medication regime ,monitoring and symptomatic treatment. Neuro workup in progress as mentioned above, with EEG and CT results pending. Hemodialysis catheter removed, not replaced .close monitoring of renal function with repeat labs ordered for a.m. PT/OT. Sister updated at bedside. Prognosis guarded given multiple complex medical issues. Further recommendations to follow The impression and plan of care has been dictated as directed. : I performed a history and examination of this patient, discussed the same with the dictator. I agree with the dictator's note ,documented as a scribe. Any additional findings or plans will be noted.
--- NOTE | 2018-09-25 20:37 | EEG ---
ELECTROENCEPHALOGRAM REPORT DATE OF EE09/25/2018 ELECTROENCEPHALOGRAPHIC EXAMINATION REPORT: INDICATION FOR EXAMINATION: This patient is a 52-year-old male admitted with massive pulmonary emboli bilaterally on 09/08/2018. The patient subsequently suffered cardiac arrest on 09/09/2018 and underwent tracheostomy and PEG tube placement. Patient being evaluated for mental status changes. AGE: [age]. EEG FINDINGS: A routine 21-channel awake digital EEG recording was accomplished utilizing the 10-20 international system with bipolar and referential montages. The background activity in the most alert resting state consists of a low to medium amplitude, poorly developed and poorly sustained 5 Hz activity over the posterior head region. This posterior rhythm attenuates minimally to eye opening. There is a small amount of low amplitude 18-20 Hz beta activity seen maximally over the anterior head regions. Muscle and movement artifact was observed on a few occasions during the tracing. Hyperventilation was not performed. Photic stimulation at flash frequencies of 2-30 Hz produced a minimal occipital driving response. No epileptiform discharges were seen. IMPRESSION: This EEG gives evidence of a severe widespread diffuse disturbance in cerebral function. The EEG failed to reveal any focal, lateralized, or epileptiform abnormalities. If clinically indicated, a follow-up EEG is recommended. Clinical correlation is recommended. MMODL / IJN: [id number] /
--- NOTE | 2018-09-25 21:49 | PN ---
PROGRESS NOTE HISTORY: The patient is seen for followup for acute kidney injury. He has had dialysis for significant fluid overload and acute kidney injury, however, his dialysis catheter was discontinued as it was not functioning well. The patient also has had significant improvement in urine output. He is currently maintained on Bumex drip. We will continue to hold off on dialysis for now and repeat labs in a.m. EXAMINATION: This morning, patient is on the vent, however, he is awake. He seems to be responding to verbal stimuli. This is apparently significantly improved from his status a few days ago. PHYSICAL EXAMINATION: Blood pressure this morning was 160/80, heart rate of 90 per minute. Examination of the heart S1, S2. Examination of lungs, bilateral breath sounds are heard. Abdomen is soft, nontender. Exam of lower extremities shows edema 1+ bilaterally. Chronic skin changes. [employer]AT[employer] exam shows patient is responding to verbal stimuli. He seems to be moving his extremities. LABS: Sodium 139, potassium 3.5, BUN 72, serum creatinine 3.8, hemoglobin 9.1 g/dL. ASSESSMENT: 1. Acute kidney injury, acute tubular necrosis, currently nonoliguric, responding to Bumex drip. Will continue with the Bumex drip and hold off on hemodialysis for now. 2. Severe volume overload, seems to be improving. 3. Status post cardiopulmonary arrest. 4. Acute hypoxic respiratory failure secondary to pulmonary embolism. 5. Right lower extremity deep venous thrombosis. 6. Bilateral pulmonary embolisms, status post tPA, maintained on heparin. 7. Anemia secondary to acute blood loss, status post packed RBCs, currently stable. 8. Hyperphosphatemia associated with renal failure. PLAN: Continue with Bumex drip. Hold off on hemodialysis. Repeat labs in a.m. MMODL / IJN: [id number] /
[2018-09-26 00:03] LABS: Glucose,Whole Blood 141 mg/dL (75-99)
[2018-09-26] MEDS: INSULIN ASPART 100 UNIT/ML 1 ML 10 ML VIAL SQ SCH ×4 (00:38→18:39)
[2018-09-26] MEDS: HYDROmorphone 1 MG/ML 1 ML SYRINGE IVP PRN ×5 (01:23→21:28)
[2018-09-26] MEDS: PIPERACILLIN-TAZOBACTAM 3.375 GM in SODIUM CHLORIDE 0.9% 100 ML IVPB SCH ×3 (01:46→19:24)
[2018-09-26] MEDS: IPRATROPIUM-ALBUTEROL 3 ML NEB INHALATION SCH ×6 (03:28→23:18)
[2018-09-26 05:49] LABS: Anisocytosis Slight; Basophils # (A) 0.1 k/uL (0-0.2); Basophils % (A) 1 %; Eosinophils # (A) 0.4 k/uL (0-0.7); Eosinophils % (A) 4 %; HCT 33.7 % (39.0-53.0); HGB 10.6 gm/dL (13.0-17.5); Hypochromasia Slight; Lymphocytes # (A) 1.5 k/uL (1.0-4.8); Lymphocytes % (A) 15 %; MCH 30.1 pg (25.0-35.0); MCHC 31.5 g/dL (31.0-37.0); MCV 95.3 fL (80.0-100.0); Mean Platelet Volume 7.3; Monocytes # (A) 0.6 k/uL (0-1.0); Monocytes % (A) 6 %; Neutrophils # (A) 6.7 k/uL (1.3-7.7); Neutrophils % (A) 70 %; Platelet Count 246 k/uL (150-450); RBC 3.53 m/uL (4.30-5.90); RDW 16.1 % (11.5-15.5); WBC 9.5 k/uL (3.8-10.6)
[2018-09-26 06:06] LABS: Calcium 9.6 mg/dL (8.4-10.2); Phosphorus 5.5 mg/dL (2.5-4.5); Potassium 3.6 mmol/L (3.5-5.1)
--- NOTE | 2018-09-26 06:52 | XR ---
EXAMINATION TYPE: XR chest 1V portable DATE OF EXAM: 09/26/2018 HISTORY: assess lungs; vent. REFERENCE: Previous study dated 09/25/2018. FINDINGS: There is a tracheostomy tube in place. The tip overlies the tracheal air column in this sin gle frontal projection. There is a left internal jugular catheter in place. Its tip is in the right atrium. There is bibasilar airspace disease. There are small, bilateral effusions heart is mildly enlarged. IMPRESSION: NO SIGNIFICANT INTERVAL CHANGE IN THE APPEARANCE OF THE CHEST.
[2018-09-26 07:19] LABS: ABG Base Excess 5.1 mmol/L; ABG HCO3 30 mmol/L (21-25); ABG Oxygen Saturation 99.3 % (94-97); ABG PCO2 51 mmHg (35-45); ABG PH 7.38 (7.35-7.45); ABG PO2 124 mmHg (83-108); ABG TCO2 32 mmol/L (19-24)
[2018-09-26] MEDS: PANTOPRAZOLE 40 MG/10 ML VIAL IVP SCH (08:11)
[2018-09-26] MEDS: CALCIUM ACETATE 667 MG CAP PO SCH ×3 (08:12→18:28)
[2018-09-26] MEDS: METOPROLOL TARTRATE 25 MG TAB PO SCH (08:12)
[2018-09-26] MEDS: hydrALAZINE HCL 50 MG TAB PO SCH ×3 (08:12→21:28)
[2018-09-26] MEDS: AMIODARONE 200 MG TAB PO SCH (08:12)
[2018-09-26] MEDS: RIVAROXABAN 15 MG TAB PO SCH ×2 (10:46→18:28)
--- NOTE | 2018-09-26 10:47 | PN ---
PROGRESS NOTE Mr. Rowlye is a 52-year-old male who presented with massive bilateral pulmonary embolism, respiratory failure. He has been intubated. Received a trach and PEG. He had atrial arrhythmia that resolved. He is more awake and alert, moving all his extremities. Appears slightly stronger. He continues to be in sinus mechanism. He had some episode of hypertension. His urine output has been stable. He continues to be on amiodarone 200 mg daily, Bumex 1 mg IV q.8 hours, hydralazine 50 mg 3 times a day, metoprolol tartrate 50 mg 3 times a day in addition to Xarelto 15 mg twice a day. PHYSICAL EXAMINATION: Blood pressure running in the 130s to 150s with a heart rate in the 80s. LUNGS: Clear anteriorly. HEART: Regular rate and rhythm, S1, S2. No S3. No rub. ABDOMEN: Soft, obese, nontender. EXTREMITIES 1+ edema. LAB DATA: Revealed BUN and creatinine of 81 and 4.59. Potassium 3.6, hemoglobin of 10.6. Magnesium of 2.4. IMPRESSION: 1. Respiratory failure with massive bilateral pulmonary embolism. 2. Status post tracheostomy. 3. Atrial arrhythmia, stable. 4. Acute renal injury has received dialysis off dialysis at this time. 5. Metabolic encephalopathy as well as debilitation. 6. Prior history of smoking. 7. Hypertension. RECOMMENDATIONS: We will continue present therapy. We will follow his blood pressure and adjust the treatment as needed. The patient does require long-term rehab to improve his respiratory status and his overall status. MMODL / IJN: [id number] /
[2018-09-26] MEDS: BUMETANIDE 0.25 MG/ML 4 ML VIAL IVP SCH ×2 (11:00→18:39)
[2018-09-26] MEDS: POTASSIUM BICARBONATE/CIT AC 20 MEQ TABLET.EFF NG-TUBE SCH ×2 (11:02→11:40)
--- NOTE | 2018-09-26 11:05 | P.PN ---
Subjective Progress Note Date: 09/26/18 Principal diagnosis: Acute hypoxic respiratory failure secondary to massive bilateral pulmonary embolism. Status post cardiopulmonary arrest and status post TPA treatment. On 09/14/2018, I am seeing this patient for a follow-up in the intensive care unit. The patient was in following a massive but the pulmonary embolism, right ventricular enlargement and right ventricular strain pattern with subsequent hemodynamic collapse and cardiac arrest. The patient is post TPA infusion at time of the code. The patient is currently on IV heparin. In terms of his breathing, the patient is intubated on a mechanical ventilator. The patient is currently on an assist-control mode at the rate of 32 with a tidal volume of 500 and FiO2 of 50% with a PEEP of 10. The chest x-ray from today shows adequate positioning of 82. There is some atelectatic changes and infiltration of the right lung base. Meanwhile, the blood gases from today showed a pH of 7.32 with a pCO2 of 48 and pO2 of 116 and this was done on the above-mentioned ventilator settings. No significant orotracheal secretions. Breath other are equal and bilateral. Airway pressures are not elevated. Hemodynamically, the patient is on pressors at 3 mics of norepinephrine infusion for blood pressure support. He has been aggressively resuscitated IV fluids and a noted significant amount of weight gain over the past several days. The patient was given a dose of Lasix yesterday. In addition the patient was having episodes of SVTs throughout his current hospitalization and he was treated with adenosine and currently is on amiodarone orally 5 mg by mouth twice a day and his cardiac rhythm is normalized and his in sinus rhythm. Echocardiogram, the patient has an ejection fraction of 6065%. The rhythm to Doxil septal motion abnormality consistent with right ventricular volume/strain pattern. Of interest also is development of acute kidney injury. The patient came in initially with a normal renal function. Subsequently creatinine came up to 1.7 and currently is up to 2.41. He was given a dose of Lasix yesterday and none since yesterday. The patient is nonoliguric. The net fluid balance over the past 24 hours is +825 mL. He is having loose liquidy bowel movement. He is currently on vital 1.2 at the rate of 35 mL an hour. He is sedated with Diprivan. Lower oximetry is a swallow with extensive swelling of the right lower extremity which also has a DVT. The patient is having on and off low- grade fever and the patient is currently on IV Ancef. Most recent hemoglobin is at 8.0. White cell count is not elevated at 7.1. He remains on IV heparin regarding the massive bilateral pulmonary embolism. Reevaluated today on 09/21/2018, patient remains off sedation for the last 2 days, minimal slow improvement in his overall mentation, patient is lethargic, arousable, follows very simple commands, like squeezing hands and wiggling toes. He seems to be profoundly weak, unable to move extremities against gravity. His ventilator settings are tidal volume of 500 assist control rate of 20 FiO2 of 40% and PEEP of 5. ABG this morning showed a pO2 of 115 pCO2 of 51 pH of 7.33. His labs were all reviewed including WBC count of 17.3 hemoglobin of 9.0. Electrolytes were noted to be relatively normal however his BUN is 97 creatinine is 4.82, patient remains on hemodialysis via a dialysis catheter in the right groin. Chest x-ray continues to show evidence of congestive heart failure possibly basilar effusions noted. Patient was reevaluated today on 09/22/2018, remains on mechanical ventilation, remained generally weak, follows very simple instructions but extremely weak, patient does not have a good gag reflex, cannot maintain a good eye contact, cannot raise his arms or legs against gravity, and he is profoundly weak. His ventilator settings are tidal volume of 500 assist control rate of 20 FiO2 of 40 % and PEEP of 5. Chest x-ray is showing now some component of interstitial edema. Pneumonia is not entirely ruled out. ABG this morning showed a pO2 of 99 pCO2 of 49 pH of 7.46. Renal functioning remains poor, BUN is 88 creatinine 4.68. WBC count is 15.8 hemoglobin is 8.8. Apparently the patient sustained acute kidney injury secondary to ATN from hypotension. Remains hemodialysis dependent. Patient remains on IV heparin and he was initially given TPA. Presently in sinus rhythm. And clearly the chest x-ray is consistent with mild pulmonary edema. Patient was reevaluated today on 09/23/2018, remains on the same ventilatory settings, patient is hemodynamically stable, remains on heparin, Mental status and neurological status is basically about the same, patient opens eyes, follows very simple instructions, but he is profoundly weak. Cannot even raise his hands or legs against gravity. He could squeeze hands, wiggling toes, and he does not maintain a good eye contact. He is scheduled to have a PEG tube placement and tracheostomy today. His heparin has been on hold for the last 4 hours. All his labs were reviewed, chest x-ray was also reviewed. Patient remains on hemodialysis on a daily basis as per nephrology. ABG today showed a pO2 of 103 pCO2 of 54 pH of 7.31. Chest x-ray continues to show small bilateral pleural effusions mostly consistent with pulmonary edema and fluid overload secondary to his renal failure and recent cardiopulmonary arrest. Strongly doubt pneumonia. Reevaluated today on 09/24/2018, patient remains on the same ventilatory settings , mental status is basically about the same, overall neurological status is basically the same, patient underwent tracheostomy and PEG tube placement yesterday. Both procedures were uneventful. Patient was placed back on heparin last night, and he remains on heparin. However nephrology is having issues with a dialysis catheter, and may have to come out, and we may have to hold heparin again. I instructed the nurses to hold the heparin for a couple of hours before the catheter is removed, and if no plans to place a dialysis catheter again patient should be started on Xarelto instead. However if they are planning to place the catheter again, patient will need to go back on heparin after the catheter is removed. Labs were reviewed, pO2 is 109 pCO2 of 49 pH of 7.34. CBC is relatively unremarkable, WBC count is 12.7 hemoglobin is 9.4. Renal profile remains poor with BUN of 72 creatinine of 3.78. Patient is clinically about the same, no change whatsoever except now he has a tracheostomy and a PEG tube. Opens eyes, follows very simple instructions mostly wiggling toes and squeezing hands, otherwise he is profoundly weak. Reevaluated today on 09/25/2018, patient remains on mechanical ventilation, however earlier this morning he was placed on pressure support of 8 and CPAP, and he seems to be doing excellent, good tidal volumes, reasonable a respiratory rate in the 20s, patient is definitely more awake today, he is able to hold his hands and arms against gravity. Seems to be more responsive, even his eye contact seems to be better. His dialysis catheter was removed yesterday , he is now on Xarelto, and at this point at least no plans to place a dialysis catheter again. Patient continues to have good urine output. Chest x-ray continues to show some atelectasis, possibly infiltrates in the lower lobes. ABG showed a pO2 of 91 pCO2 of 46 pH of 7.40. CBC is relatively normal. Electrolytes are normal BUN is 72 creatinine is 3.81. Seen by neurology yesterday, felt that the patient has metabolic encephalopathy which is expected. EEG is being performed this morning, results are pending. Patient is tolerating PEG tube feeding nicely, and his tracheostomy seems to be intact. Patient was reevaluated today on 10/23/2018, still on mechanical ventilation, and his ventilator settings are tidal volume of 500 assist control rate of 20 FiO2 is 40% and PEEP is 5. Patient has been intermittently tolerating pressure support of 8 and CPAP, and I plan to switch him again today to pressure support and CPAP. Overall the patient is basically the same as he was yesterday, no major jacket changer the last 24 hours. He was placed earlier on pressure support of 8 and CPAP, and as he was being changed, became agitated with significantly elevated blood pressure and respiratory rate, he was placed back on assist control mode of mechanical ventilation, and now that I saw the patient I switch him back to pressure support and CPAP. His renal functioning seems to be getting worse, urine output remains excellent, and he remains hemodynamically stable. As a matter of fact I have added more blood pressure medications to control his blood pressure. Patient is still on hydralazine and on metoprolol. Labs were reviewed ABG showed a pO2 of 124 pCO2 of 51 pH of 7.38. And this is on 40% FiO2. Basic metabolic profile is normal BUN is 81 creatinine is 4.59. Patient has not been dialyzed over the last 2 days. As a matter of fact his dialysis catheter was actually removed. Hoping he doesn't need any more dialysis. WBC count is 9.5 hemoglobin is 10.6. Chest x-ray continues to show by basilar atelectasis, possibility of pneumonia/aspiration pneumonia is possible but not entirely confirmed. Objective - Vital Signs Vital signs: Vital Signs Temp 97.6 F 09/26/18 08:00 Pulse 81 09/26/18 10:00 Resp 16 09/26/18 10:00 BP 155/71 09/26/18 10:00 Pulse Ox 97 09/26/18 10:00 Intake & Output 09/25/18 09/26/1809/26/18 18:59 06:59 18:59 Intake Total 3209.836 8370 354 Output Total 1450 1426 680 Balance -144.833 -224 -326 Weight 142.9 kg 141.2 kg Intake: IV 517.0 524 128 Bumetanide 12 mg In 104 88 24 Dextrose 5% in Water 192 ml @ 0.5 MG/HR 10 mls/hr IV .Q24H [facility] Rx#: [id number] Piperacillin-Tazobactam 3 75.0 150 .375 gm In Sodium Chloride 0.9% 100 ml @ 25 mls/hr IVPB Q8H [facility] Rx#: [id number] Pressure bag 78 66 24 Sodium Chloride 0.9% 1, 260 220 80 000 ml @ 20 mls/hr IV . Q24H [facility] Rx#:[id number] Intake, IV Titration 159.167 Amount Bumetanide 12 mg In 159.167 Dextrose 5% in Water 192 ml @ 0.5 MG/HR 10 mls/hr IV .Q24H [facility] Rx#: [id number] Tube Feeding 539 588 196 Other 90 90 30 Output: Urine 1450 1425 680 Stool 1 Other: Voiding Method Indwelling Catheter Indwelling Catheter ABP, PAP, CO, CI - Last Documented Arterial Blood Pressure 130/68 - Exam Physical Exam: 52-year-old on mechanical ventilation. In no distress. Head: Atraumatic, normocephalic. Tracheostomy tube is intact. No icterus. HEENT:[ Short obese neck Neck is supple.] [No neck masses.] [No thyromegaly.] [ No JVD.] Tracheostomy is intact. Chest: [Minimal fine crackles at the bases, no rhonchi and no wheezes. Cardiac Exam: [Normal S1 and S2, no S3 gallop, no murmur.] Abdomen: [Soft, nontender, no megaly, no rebound, no guarding, normal bowel sounds.] Extremities negative edema.]. Good pulses bilaterally. Neurological Exam: PERRLA, EOMI, remains more arousable today compared to the last few days, follows simple instructions, but generally weak Psychiatric: Could not be assessed. Lymphatics: No lymphadenopathy. Skin: No rashes, significant improvement in lower extremity swelling bilaterally. - Labs CBC & Chem 7: 09/26/18 05:10 09/26/18 05:10 Labs: Abnormal Lab Results - Last 24 Hours (Table) 09/25/18 09/25/18 09/25/18 Range/Units 11:49 17:35 23:52 RBC (4.30-5.90) m/uL Hgb (13.0-17.5) gm/dL Hct (39.0-53.0) % RDW (11.5-15.5) % ABG pCO2 (35-45) mmHg ABG pO2 (83-108) mmHg ABG HCO3 (21-25) mmol/L ABG Total CO2 (19-24) mmol/L ABG O2 Saturation (94-97) % BUN (9-20) mg/dL Creatinine (0.66-1.25) mg/dL Glucose (74-99) mg/dL POC Glucose (mg/dL) 130 H 121 H 141 H (75-99) mg/dL Phosphorus (2.5-4.5) mg/dL Magnesium (1.6-2.3) mg/dL 09/26/18 09/26/18 09/26/18 Range/Units 05:10 05:10 05:10 RBC 3.53 L (4.30-5.90) m/uL Hgb 10.6 L (13.0-17.5) gm/dL Hct 33.7 L (39.0-53.0) % RDW 16.1 H (11.5-15.5) % ABG pCO2 (35-45) mmHg ABG pO2 (83-108) mmHg ABG HCO3 (21-25) mmol/L ABG Total CO2 (19-24) mmol/L ABG O2 Saturation (94-97) % BUN 81 H (9-20) mg/dL Creatinine 4.59 H (0.66-1.25) mg/dL Glucose 135 H (74-99) mg/dL POC Glucose (mg/dL) (75-99) mg/dL Phosphorus 5.5 H (2.5-4.5) mg/dL Magnesium 2.4 H (1.6-2.3) mg/dL 09/26/18 Range/Units 07:02 RBC (4.30-5.90) m/uL Hgb (13.0-17.5) gm/dL Hct (39.0-53.0) % RDW (11.5-15.5) % ABG pCO2 51 H (35-45) mmHg ABG pO2 124 H (83-108) mmHg ABG HCO3 30 H (21-25) mmol/L ABG Total CO2 32 H (19-24) mmol/L ABG O2 Saturation 99.3 H (94-97) % BUN (9-20) mg/dL Creatinine (0.66-1.25) mg/dL Glucose (74-99) mg/dL POC Glucose (mg/dL) (75-99) mg/dL Phosphorus (2.5-4.5) mg/dL Magnesium (1.6-2.3) mg/dL Assessment and Plan Assessment: Impression: 1 acute hypoxic respiratory failure secondary to massive bilateral pulmonary embolism. Status post cardiopulmonary arrest, status post TPA treatment, remains on heparin. Remains on mechanical ventilation. Presently the patient is on Xarelto, he was transitioned from heparin to Xarelto in the last few days. 2 massive pulmonary embolism with right ventricular strain and subsequent cardiac arrest. 3 acute metabolic encephalopathy, related to anoxic brain injury 4 acute kidney injury secondary to hypotension and acute tubular necrosis, remains on dialysis. Patient has nonoliguric renal failure, urine output is adequate, no plans to place dialysis catheter again. 5 acute deep vein thrombosis of right lower extremity, presently on heparin. 6 chronic normocytic anemia, likely multifactorial. 7 history of smoking 8 morbid obesity with BMI of 46.5 9 possible aspiration pneumonia, as noted on the chest x-ray, but not truly confirmed, chest x-ray is showing improvement with bibasilar atelectasis especially on the left side. 10 status post cardiopulmonary arrest secondary to massive pulmonary embolism. 11 status post tracheostomy and PEG tube placement on 09/23/2018. 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 Will definitely require long-term physical therapy, and long-term facility for rehabilitation. Recommendation: Will give the patient a trial of pressure support and CPAP again , may even consider trach collar trials on the patient, I have increased the dose of metoprolol, kept him on the same dose of hydralazine, and I have consulted [facility] care [facility], possibly consider transferring the patient to select care specialty by Friday. In the meantime we'll continue to monitor the patient in the ICU, and I will update his sister on his condition today. Critical care time is 34 minutes. Time with Patient: Greater than 30
[2018-09-26] MEDS: MULTIVITAMINS, THERA 1 EACH TAB PO SCH (11:58)
[2018-09-26] MEDS ORDERED: BUMETANIDE 0.25 MG/ML 4 ML VIAL IVP SCH (12:00)
[2018-09-26 12:18] LABS: Glucose,Whole Blood 126 mg/dL (75-99)
--- NOTE | 2018-09-26 13:09 | P.PN ---
Subjective Progress Note Date: 09/26/18 Principal diagnosis: Respiratory failure Patient stable on ventilator. Starting weaning trials. Tolerating tube feeds at goal. Objective - Vital Signs Vital signs: Vital Signs Temp 98.2 F 09/26/18 12:00 Pulse 105 H 09/26/18 12:03 Resp 13 09/26/18 12:00 BP 167/80 09/26/18 12:00 Pulse Ox 96 09/26/18 12:00 Intake & Output 09/25/18 09/26/18 09/26/18 18:59 06:59 18:59 Intake Total 4166.401 7872 598 Output Total 1450 1426 980 Balance -144.833 -224 -382 Weight 142.9 kg 141.2 kg 141.2 kg Intake: IV 517.0 524 214 Bumetanide 12 mg In 104 88 24 Dextrose 5% in Water 192 ml @ 0.5 MG/HR 10 mls/hr IV .Q24H [facility] Rx#: [id number] Piperacillin-Tazobactam 3 75.0 150 50 .375 gm In Sodium Chloride 0.9% 100 ml @ 25 mls/hr IVPB Q8H [facility] Rx#: [id number] Pressure bag 78 66 30 Sodium Chloride 0.9% 1, 260 220 110 000 ml @ 20 mls/hr IV . Q24H [facility] Rx#:[id number] Intake, IV Titration 159.167 Amount Bumetanide 12 mg In 159.167 Dextrose 5% in Water 192 ml @ 0.5 MG/HR 10 mls/hr IV .Q24H [facility] Rx#: [id number] Tube Feeding 539 588 294 Other 90 90 90 Output: Urine 1450 1425 980 Stool 1 Other: Voiding Method Indwelling Catheter Indwelling Catheter # Bowel Movements 1 ABP, PAP, CO, CI - Last Documented Arterial Blood Pressure 130/68 - Exam Tracheostomy site clean without erythema or tenderness, PEG catheter site without tenderness - Labs CBC & Chem 7: 09/26/18 05:10 09/26/18 05:10 Labs: Abnormal Lab Results - Last 24 Hours (Table) 09/25/18 09/25/18 09/26/18 Range/Units 17:35 23:52 05:10 RBC (4.30-5.90) m/uL Hgb (13.0-17.5) gm/dL Hct (39.0-53.0) % RDW (11.5-15.5) % ABG pCO2 (35-45) mmHg ABG pO2 (83-108) mmHg ABG HCO3 (21-25) mmol/L ABG Total CO2 (19-24) mmol/L ABG O2 Saturation (94-97) % BUN 81 H (9-20) mg/dL Creatinine 4.59 H (0.66-1.25) mg/dL Glucose 135 H (74-99) mg/dL POC Glucose (mg/dL) 121 H 141 H (75-99) mg/dL Phosphorus 5.5 H (2.5-4.5) mg/dL Magnesium (1.6-2.3) mg/dL 09/26/18 09/26/18 09/26/18 Range/Units 05:10 05:10 07:02 RBC 3.53 L (4.30-5.90) m/uL Hgb 10.6 L (13.0-17.5) gm/dL Hct 33.7 L (39.0-53.0) % RDW 16.1 H (11.5-15.5) % ABG pCO2 51 H (35-45) mmHg ABG pO2 124 H (83-108) mmHg ABG HCO3 30 H (21-25) mmol/L ABG Total CO2 32 H (19-24) mmol/L ABG O2 Saturation 99.3 H (94-97) % BUN (9-20) mg/dL Creatinine (0.66-1.25) mg/dL Glucose (74-99) mg/dL POC Glucose (mg/dL) (75-99) mg/dL Phosphorus (2.5-4.5) mg/dL Magnesium 2.4 H (1.6-2.3) mg/dL 09/26/18 Range/Units 12:02 RBC (4.30-5.90) m/uL Hgb (13.0-17.5) gm/dL Hct (39.0-53.0) % RDW (11.5-15.5) % ABG pCO2 (35-45) mmHg ABG pO2 (83-108) mmHg ABG HCO3 (21-25) mmol/L ABG Total CO2 (19-24) mmol/L ABG O2 Saturation (94-97) % BUN (9-20) mg/dL Creatinine (0.66-1.25) mg/dL Glucose (74-99) mg/dL POC Glucose (mg/dL) 126 H (75-99) mg/dL Phosphorus (2.5-4.5) mg/dL Magnesium (1.6-2.3) mg/dL Assessment and Plan Plan: Continue tube feeds at goal. Continue weaning. Dr. Lawler will reevaluate Friday.
--- NOTE | 2018-09-26 14:01 | P.PN ---
Subjective 52-year-old male with a known history of chronic bilateral lower extremity lymphedema and history of pulmonary embolism about a year ago, currently not taking Coumadin for the past 6-8 months came to ER with complaints of acute worsening shortness of breath since yesterday. Patient says that he has been having shortness of breath for the last couple of weeks but suddenly got worse yesterday. Patient was told that his DVT and pulmonary embolus was secondary to sedentary lifestyle and sleeping in a sitting position. Patient states he took his Coumadin for about 6 months. He was so several follow-up appointment in November for repeat evaluation however he did not follow-up with that appointment. He stopped his Coumadin in November. Denies any constitutional symptoms. Patient feels much more short of breath with exertion. Chest pain. He feels as though both of his legs are much more edematous than usual suspicion is right lower extremity. Lower extremity duplex scan showed acute DVT right popliteal vein through the proximal calf veins CTA chest showed massive bilateral pulmonary embolism with right ventricular enlargement suggestive of right ventricular strain correlate clinically. A 7 mm and 4 mm right lower lobe pulmonary nodule not seen previous exam subpleural in location could be inflammatory. WBC 14.1 Troponin 0.258 Potassium 5.3 On 09/09/2018 Patient had a brief episode of cardiopulmonary arrest this morning and developed respiratory distress. Subsequently patient was intubated and was transferred to MICU. Patient had a difficult intubation. Patient was given TPA by ER physician. Patient also received multiple doses of epinephrine and sodium bicarbonate. Patient is currently on Levophed drip. Being continued on heparin drip as well. Patient is currently sedated. Initial ABG showed pH 7.0, pCO2 80, pO2 118 Patient was seen by cardiology and pulmonary. 09/10/2018 Patient is currently mechanically ventilated and sedated. Patient is being continued on heparin drip. Continues to be on Levothroid drip. Patient had SVT during cardiopulmonary arrest. Patient was started on amiodarone.. Otherwise hemoglobin dropped to 10.7 today. Continues to have bloody secretions which is being suctioned. Chest x-ray showed bilateral pleural effusion and consolidation. AST 559 and ALT 509 albumin 2.6. Cultures negative so far. Creatinine 1.76. 09/11/2018 52-year-old gentleman with a history of massive bilateral pulmonary embolism right ventricular enlargement and right heart strain. He did receive systemic TPA and was on IV heparin until yesterday which time was turned off because of ongoing bleeding. The patient's overall prognosis remains very guarded. The patient remains on ventilator. Arterial blood gases show a PaO2 of 113 PaCO2 38 and a pH of 7.4. The patient is on saline at 75 mL an hour; Heparin was discontinued yesterday because of ongoing bleeding from the cavity and NG tube. In addition, he's had about a 1 g hemoglobin drop on a daily basis. This morning's hemoglobin is 9.9. 09/12/2018; The patient's overall prognosis remains very guarded. The patient was given a daily interruption of sedation today but could not have a spontaneous breathing trial because he became very tachypnea with respiratory rates above 40. Currently, he is on the volume assist control mode rate of 32, tidal volume 500 , FiO2 35% to be increased to 40% and 5 of PEEP. Arterial blood gases showed a PaO2 of 59 a PaCO2 of 43 and a pH 7.37. That was on 35% FiO2. In addition, the patient's on norepinephrine at 7 mics per minute, propofol at 65 mcg/kg/m, saline IV at 75 mL an hour, heparin via weightbase protocol and vital 1.2 at goal. Chest x-ray shows bilateral effusions with basilar atelectasis and/or infiltrates. On 09/15/2018 Patient currently on mechanical ventilation with assist control and sedation. Patient is being continued on IV heparin. Hemoglobin is 7.5. Renal function slightly worsened with increasing creatinine level 3.56. No active bleeding noted. Chest x-ray showed bilateral pleural effusion and pulmonary vascular congestion. Patient was given a dose of Lasix previously. Patient is currently on antibiotics in the form of Zosyn. 09/16/2018 Patient was seen and examined in the MICU. Currently maintained on mechanical ventilator. Hemoglobin dropped to 5.9 today. 2 units of PRBC was ordered. No signs of active bleeding noted. Patient is being continued on IV heparin. Chest x-ray showed evidence of bilateral consolidation and pleural effusion. Correlate for pulmonary edema and diffuse pneumonia. Currently on Lasix drip. Creatinine level increased to 3.89 today. Otherwise patient is getting empiric antibiotics for possible pneumonia aspiration likely. Patient is being followed by pulmonary cardiology and nephrology. 09/17/2018 Patient is currently on mechanical ventilator. Chest x-ray showed possible fluid overload/pneumonia. Creatinine is trending up at 4.7 today. Hemoglobin is 7.6. Continued on IV heparin. held for permacath placement. Nephrology is planning for hemodialysis. No fever no chills. 09/20/2018 Patient is on mechanical ventilator. Patient is off sedation and is able to blink his eyes. Patient is being continued on hemodialysis. Patient had 3 hemodialysis sessions last one yesterday. Continued on IV antibiotics the form of Zosyn. Leukocytosis slightly improved to 23.7, hemoglobin 9.5 No other acute overnight issues. 09/21/2018 Patient remained on mechanical ventilator. Off sedation and also support. Patient does have slight improvement in mental status. Patient is extremely lethargic and follows simple commands. Hemoglobin is 9.0. Leukocytosis is improved to 17.3. Patient is getting hemodialysis today. Creatinine level IV.82. Chest x-ray showed evidence of congestive heart failure and pleural effusion noted. Patient is afebrile. Blood pressure is maintained. 09/26/2018 Patient is responding to commands patient has a tracheostomy in place. His creatinine has worsened a little bit discussed with the sister at bedside. Patient has weakness secondary to prolonged hospitalization and ICU hospitalization and being on sedation for long time. Decision regarding continuation of hemodialysis will be made on Friday after that patient probably can be discharged to [facility]. Patient is not on ventilator support is on CPAP at this time. Objective - Vital Signs Vital signs: Vital Signs Temp 98.2 F 09/26/18 12:00 Pulse 107 H 09/26/18 13:00 Resp 22 09/26/18 13:00 BP 167/84 09/26/18 13:00 Pulse Ox 95 09/26/18 13:00 Intake & Output 09/25/18 09/26/18 09/26/18 18:59 06:59 18:59 Intake Total 9776.920 4704 660 Output Total 1450 1426 1130 Balance -144.833 -224 -470 Weight 142.9 kg 141.2 kg 141.2 kg Intake: IV 517.0 524 227 Bumetanide 12 mg In 104 88 24 Dextrose 5% in Water 192 ml @ 0.5 MG/HR 10 mls/hr IV .Q24H [facility] Rx#: [id number] Piperacillin-Tazobactam 3 75.0 150 50 .375 gm In Sodium Chloride 0.9% 100 ml @ 25 mls/hr IVPB Q8H [facility] Rx#: [id number] Pressure bag 78 66 33 Sodium Chloride 0.9% 1, 260 220 120 000 ml @ 20 mls/hr IV . Q24H [facility] Rx#:[id number] Intake, IV Titration 159.167 Amount Bumetanide 12 mg In 159.167 Dextrose 5% in Water 192 ml @ 0.5 MG/HR 10 mls/hr IV .Q24H [facility] Rx#: [id number] Tube Feeding 539 588 343 Other 90 90 90 Output: Urine 1450 1425 1130 Stool 1 Other: Voiding Method Indwelling Catheter Indwelling Catheter # Bowel Movements 1 ABP, PAP, CO, CI - Last Documented Arterial Blood Pressure 130/68 - Exam PHYSICAL EXAMINATION: GENERAL: The patient is awake following commands does have tracheostomy in place , moderately obese HEENT: Pupils are round and equally reacting to light. EOMI. No scleral icterus. No conjunctival pallor. Normocephalic, atraumatic. No pharyngeal erythema. No thyromegaly. CARDIOVASCULAR: S1 and S2 present. No murmurs, rubs, or gallops. PULMONARY: Chest is clear to auscultation, no wheezing or crackles. ABDOMEN: Soft, nontender, nondistended, normoactive bowel sounds. No palpable organomegaly. PEG tube in place MUSCULOSKELETAL: No joint swelling or deformity. EXTREMITIES: No cyanosis, clubbing, or pedal edema. NEUROLOGICAL: Generalized weakness secondary to hospitalization SKIN: No rashes. - Labs CBC & Chem 7: 09/26/18 05:10 09/26/18 05:10 Labs: Abnormal Lab Results - Last 24 Hours (Table) 09/25/18 09/25/18 09/26/18 Range/Units 17:35 23:52 05:10 RBC (4.30-5.90) m/uL Hgb (13.0-17.5) gm/dL Hct (39.0-53.0) % RDW (11.5-15.5) % ABG pCO2 (35-45) mmHg ABG pO2 (83-108) mmHg ABG HCO3 (21-25) mmol/L ABG Total CO2 (19-24) mmol/L ABG O2 Saturation (94-97) % BUN 81 H (9-20) mg/dL Creatinine 4.59 H (0.66-1.25) mg/dL Glucose 135 H (74-99) mg/dL POC Glucose (mg/dL) 121 H 141 H (75-99) mg/dL Phosphorus 5.5 H (2.5-4.5) mg/dL Magnesium (1.6-2.3) mg/dL 09/26/18 09/26/18 09/26/18 Range/Units 05:10 05:10 07:02 RBC 3.53 L (4.30-5.90) m/uL Hgb 10.6 L (13.0-17.5) gm/dL Hct 33.7 L (39.0-53.0) % RDW 16.1 H (11.5-15.5) % ABG pCO2 51 H (35-45) mmHg ABG pO2 124 H (83-108) mmHg ABG HCO3 30 H (21-25) mmol/L ABG Total CO2 32 H (19-24) mmol/L ABG O2 Saturation 99.3 H (94-97) % BUN (9-20) mg/dL Creatinine (0.66-1.25) mg/dL Glucose (74-99) mg/dL POC Glucose (mg/dL) (75-99) mg/dL Phosphorus (2.5-4.5) mg/dL Magnesium 2.4 H (1.6-2.3) mg/dL 09/26/18 Range/Units 12:02 RBC (4.30-5.90) m/uL Hgb (13.0-17.5) gm/dL Hct (39.0-53.0) % RDW (11.5-15.5) % ABG pCO2 (35-45) mmHg ABG pO2 (83-108) mmHg ABG HCO3 (21-25) mmol/L ABG Total CO2 (19-24) mmol/L ABG O2 Saturation (94-97) % BUN (9-20) mg/dL Creatinine (0.66-1.25) mg/dL Glucose (74-99) mg/dL POC Glucose (mg/dL) 126 H (75-99) mg/dL Phosphorus (2.5-4.5) mg/dL Magnesium (1.6-2.3) mg/dL Assessment and Plan Plan: Acute cardiopulmonary arrest secondary to to pulmonary embolism. presently has tracheostomy and not on any ventilator support Acute hypercapnic, hypoxic respiratory failure secondary to massive bilateral pulmonary embolism. Status post tracheostomy and PEG tube placement Massive pulmonary embolism with right ventricular strain. Patient was given TPA during CPR Acute hypotension . S/P pressor support. 2-D echocardiogram showed normal LV functioI do not believe patient has a right lower lobe pneumoniaguric acute kidney injury due to ATN. Started on hemodialysis during this admission. Possible aspiration pneumonia Elevated troponin level secondary to right ventricular strain Acute lower extremity DVT Previous history of smoking Bilateral lower extremity chronic lymphedema Morbid obesity with BMI 43.7 Seborrheic dermatitis history Anxiety morbid obesity Plan: Continue on current medication regime ,monitoring and symptomatic treatment. Neuro workup in progress as mentioned above, with EEG and CT results pending. Hemodialysis catheter removed, not replaced .close monitoring of renal function with repeat labs ordered for a.m. PT/OT. Sister updated at bedside. Prognosis guarded given multiple complex medical issues. Further recommendations to follow
[2018-09-26] MEDS: LORazepam 2 MG/ML INJ IV PRN (14:55)
[2018-09-26] MEDS: METOPROLOL TARTRATE 50 MG TAB PO SCH ×2 (15:12→21:27)
[2018-09-26 18:49] LABS: Glucose,Whole Blood 114 mg/dL (75-99)
[2018-09-26] MEDS: CHLORHEXIDINE GLUCONATE 15 ML CUP MUCOUS MEM SCH (21:28)
--- NOTE | 2018-09-26 21:28 | P.PN ---
Subjective Progress Note Date: 09/26/18 This patient is seen on neurologic rounds today in the intensive care unit. The patient is showing slight improvement in his degree of alertness. As noted he is status post tracheostomy and PEG tube placement a few days ago. He is tolerating his tube feedings. His creatinine is somewhat worse today as compared to yesterday and nephrology is following him. Family is to have a meeting on Friday to discuss ongoing treatment for the patient including his hemodialysis. Patient is currently on CPAP at night and seems to be tolerating this fairly well. He underwent a routine EEG yesterday which was reviewed and reveals severe slowing with a background of 5 Hz. No epileptiform discharges were seen. These findings are consistent with a severe hypoxic/anoxic encephalopathy following cardiopulmonary arrest. He is being considered for possible discharge to select specialty next week. We will continue close neurological follow-up for the patient during this admission. His overall prognosis at this time remains very guarded. Objective - Vital Signs Vital signs: Vital Signs Temp 99.7 F H 09/26/18 16:00 Pulse 103 H 09/26/18 20:18 Resp 18 09/26/18 19:00 BP 174/89 09/26/18 19:00 Pulse Ox 98 09/26/18 19:00 Intake & Output 09/26/18 09/26/18 09/27/18 06:59 18:59 05:59 Intake Total 1202 1020 72 Output Total 1426 1730 75 Balance -224 -710 -3 Weight 141.2 kg 141.2 kg Intake: IV 524 312 23 Bumetanide 12 mg In 88 24 Dextrose 5% in Water 192 ml @ 0.5 MG/HR 10 mls/hr IV .Q24H [facility] Rx#: [id number] Piperacillin-Tazobactam 3 150 50 .375 gm In Sodium Chloride 0.9% 100 ml @ 25 mls/hr IVPB Q8H [facility] Rx#: [id number] Pressure bag 66 48 3 Sodium Chloride 0.9% 1, 220 190 20 000 ml @ 20 mls/hr IV . Q24H [facility] Rx#:[id number] Tube Feeding 588 588 49 Other 90 120 Output: Urine 1425 1730 75 Stool 1 Other: Voiding Method Indwelling Catheter Indwelling Catheter # Bowel Movements 1 ABP, PAP, CO, CI - Last Documented Arterial Blood Pressure 130/68 - Exam Physical Examination: PHYSICAL EXAMINATION: Patient is resting comfortably in bed. VITAL SIGNS: Blood pressure is [174/89]. Heart rate is [105]. Respiration is [18 ]. Temperature is [99.7]. HEENT: Head is atraumatic, neck is supple, there were no carotid bruits. CHEST: Lungs are clear to auscultation and percussion. CARDIAC: S1, S2 normal rate and rhythm. There is no murmur. ABDOMEN: Soft and nontender. Bowel sounds are present. EXTREMITIES: There is no pedal edema. Peripheral pulses are present. Neurological examination: Patient's neurological examination is unchanged from yesterday. He remains status post tracheostomy and PEG tube placement in the intensive care unit. He is showing only slight improvement in his mental status today. He is awaiting possible transferred to select specialty early next week. There is been no significant change or improvement in his overall neurological status. - Labs CBC & Chem 7: 09/26/18 05:10 09/26/18 05:10 Labs: Abnormal Lab Results - Last 24 Hours (Table) 09/25/18 09/26/18 09/26/18 Range/Units 23:52 05:10 05:10 RBC 3.53 L (4.30-5.90) m/uL Hgb 10.6 L (13.0-17.5) gm/dL Hct 33.7 L (39.0-53.0) % RDW 16.1 H (11.5-15.5) % ABG pCO2 (35-45) mmHg ABG pO2 (83-108) mmHg ABG HCO3 (21-25) mmol/L ABG Total CO2 (19-24) mmol/L ABG O2 Saturation (94-97) % BUN 81 H (9-20) mg/dL Creatinine 4.59 H (0.66-1.25) mg/dL Glucose 135 H (74-99) mg/dL POC Glucose (mg/dL) 141 H (75-99) mg/dL Phosphorus 5.5 H (2.5-4.5) mg/dL Magnesium (1.6-2.3) mg/dL 09/26/18 09/26/18 09/26/18 Range/Units 05:10 07:02 12:02 RBC (4.30-5.90) m/uL Hgb (13.0-17.5) gm/dL Hct (39.0-53.0) % RDW (11.5-15.5) % ABG pCO2 51 H (35-45) mmHg ABG pO2 124 H (83-108) mmHg ABG HCO3 30 H (21-25) mmol/L ABG Total CO2 32 H (19-24) mmol/L ABG O2 Saturation 99.3 H (94-97) % BUN (9-20) mg/dL Creatinine (0.66-1.25) mg/dL Glucose (74-99) mg/dL POC Glucose (mg/dL) 126 H (75-99) mg/dL Phosphorus (2.5-4.5) mg/dL Magnesium 2.4 H (1.6-2.3) mg/dL 09/26/18 Range/Units 18:38 RBC (4.30-5.90) m/uL Hgb (13.0-17.5) gm/dL Hct (39.0-53.0) % RDW (11.5-15.5) % ABG pCO2 (35-45) mmHg ABG pO2 (83-108) mmHg ABG HCO3 (21-25) mmol/L ABG Total CO2 (19-24) mmol/L ABG O2 Saturation (94-97) % BUN (9-20) mg/dL Creatinine (0.66-1.25) mg/dL Glucose (74-99) mg/dL POC Glucose (mg/dL) 114 H (75-99) mg/dL Phosphorus (2.5-4.5) mg/dL Magnesium (1.6-2.3) mg/dL Assessment and Plan (1) Acute metabolic encephalopathy Current Visit: Yes Status: Acute Code(s): G93.41 - METABOLIC ENCEPHALOPATHY SNOMED Code(s): 24577463 (2) Pulmonary embolism Current Visit: Yes Status: Acute Code(s): I26.99 - OTHER PULMONARY EMBOLISM WITHOUT ACUTE COR PULMONALE SNOMED Code(s): 06576184 (3) Congestive heart failure (CHF) Current Visit: No Status: Acute Code(s): I50.9 - HEART FAILURE, UNSPECIFIED SNOMED Code(s): 15543868 (4) DVT (deep venous thrombosis) Current Visit: No Status: Acute Code(s): I82.409 - ACUTE EMBOLISM AND THOMBOS UNSP DEEP VN UNSP LOWER EXTREMITY SNOMED Code(s): 686516587 (5) Obesity Current Visit: No Status: Acute Code(s): E66.9 - OBESITY, UNSPECIFIED SNOMED Code(s): 706159995 Plan: This patient is a 52-year-old male status post bilateral pulmonary embolism with cardiopulmonary arrest. Patient was initially intubated and then extubated with tracheostomy and PEG tube placement. He has remained very lethargic since extubation. He is showing slight improvement today in terms of his mental status and he does seem to follow simple commands. He is being followed by multiple specialists. His routine EEG which was recently performed reveals severe slowing consistent with a hypoxic/anoxic encephalopathy. His overall prognosis at this time remains very guarded. We will continue to follow his progress closely in the intensive care unit. Primary care physicians are working on possible discharge to select specialty early next week. His overall prognosis at this time remains very guarded. We will continue to follow him closely in the intensive care unit. We'll reassess him tomorrow to see if he continues to show slight improvement. Once again his overall prognosis at this time remains very guarded.
[2018-09-26 23:36] LABS: Glucose,Whole Blood 132 mg/dL (75-99)
[2018-09-27] MEDS: INSULIN ASPART 100 UNIT/ML 1 ML 10 ML VIAL SQ SCH ×4 (00:15→18:53)
[2018-09-27] MEDS: SODIUM CHLORIDE 0.9% 1,000 ML IV SCH ×2 (00:15→21:11)
[2018-09-27] MEDS: LORazepam 2 MG/ML INJ IV PRN (00:17)
[2018-09-27] MEDS: PIPERACILLIN-TAZOBACTAM 3.375 GM in SODIUM CHLORIDE 0.9% 100 ML IVPB SCH ×3 (02:09→18:53)
[2018-09-27] MEDS: BUMETANIDE 0.25 MG/ML 4 ML VIAL IVP SCH ×3 (03:03→17:06)
[2018-09-27] MEDS: IPRATROPIUM-ALBUTEROL 3 ML NEB INHALATION SCH ×6 (03:31→23:54)
[2018-09-27 04:53] LABS: Basophils # (A) 0.1 k/uL (0-0.2); Basophils % (A) 1 %; Eosinophils # (A) 0.3 k/uL (0-0.7); Eosinophils % (A) 4 %; HCT 33.3 % (39.0-53.0); HGB 10.3 gm/dL (13.0-17.5); Hypochromasia Moderate; Lymphocytes # (A) 1.3 k/uL (1.0-4.8); Lymphocytes % (A) 17 %; MCH 29.5 pg (25.0-35.0); MCHC 30.8 g/dL (31.0-37.0); MCV 95.6 fL (80.0-100.0); Mean Platelet Volume 7.2; Monocytes # (A) 0.6 k/uL (0-1.0); Monocytes % (A) 7 %; Neutrophils # (A) 5.3 k/uL (1.3-7.7); Neutrophils % (A) 68 %; Platelet Count 288 k/uL (150-450); RBC 3.48 m/uL (4.30-5.90); RDW 15.9 % (11.5-15.5); WBC 7.8 k/uL (3.8-10.6)
[2018-09-27 05:20] LABS: Calcium 10.1 mg/dL (8.4-10.2); Magnesium 2.6 mg/dL (1.6-2.3); Phosphorus 5.2 mg/dL (2.5-4.5); Potassium 3.5 mmol/L (3.5-5.1)
--- NOTE | 2018-09-27 06:12 | XR ---
EXAMINATION TYPE: XR chest 1V portable DATE OF EXAM: 09/27/2018 HISTORY: assess lungs; vent. REFERENCE: Previous study dated 09/26/2018. FINDINGS: There is a tracheostomy tube in place. Its tip overlies the tracheal air column in this sin gle frontal projection. The left internal jugular catheter in place. Its tip is at the cavoatrial junction. There is bibasilar airspace disease. Heart size is increased. I suspect a small left effusion. IMPRESSION: IMPROVED AERATION, RIGHT LUNG BASE.
[2018-09-27 06:29] LABS: Glucose,Whole Blood 136 mg/dL (75-99)
[2018-09-27] MEDS ORDERED: POTASSIUM BICARBONATE/CIT AC 20 MEQ TABLET.EFF PO ONE (07:13)
--- NOTE | 2018-09-27 07:14 | PN ---
PROGRESS NOTE The patient is seen for followup for acute kidney injury. He dialysis yesterday. The patient has had good urine output. He is maintained on Bumex drip. A serum creatinine is higher today at 4.59 from 3.8 yesterday. Bumex drip was discontinued and patient is switched to IV push Bumex. PHYSICAL EXAMINATION: On examination today, the patient was seen this morning and blood pressure was 155/71, heart rate 103 per minute. Patient is afebrile. Examination of the heart S1, S2. Examination of lungs bilateral breath sounds are heard. Abdomen is soft, nontender, obese. Examination of lower extremities shows chronic skin changes, edema with some wrinkling of the skin noted bilaterally upper and lower extremities. LAB: Show hemoglobin 10.6 g/dL, sodium 144, potassium 3.6, BUN 81, serum creatinine 4.59, phosphorus 5.5. ASSESSMENT: 1. Acute kidney injury, acute tubular necrosis, currently nonoliguric with significantly improved urine output. I will continue off of hemodialysis for now. The Bumex drip is discontinued. I will switch to IV push Bumex and repeat labs in a.m. 2. We will continue to hold dialysis for now. 3. Vent dependent respiratory failure, currently on trach collar. 4. Hyperphosphatemia. Maintained on phosphate binders. 5. Status post cardiac arrest. 6. History of pulmonary embolism, maintained on Xarelto. PLAN: DC Bumex drip. Start IV push Bumex. Repeat labs in a.m. Avoid hypotension. MMODL / IJN: [id number] /
[2018-09-27] MEDS: RIVAROXABAN 15 MG TAB PO SCH ×2 (07:57→16:58)
[2018-09-27] MEDS: CALCIUM ACETATE 667 MG CAP PO SCH ×3 (07:57→16:58)
[2018-09-27] MEDS: hydrALAZINE HCL 50 MG TAB PO SCH ×3 (08:08→21:11)
[2018-09-27] MEDS: METOPROLOL TARTRATE 50 MG TAB PO SCH ×3 (08:11→21:11)
[2018-09-27] MEDS: AMIODARONE 200 MG TAB PO SCH (08:11)
[2018-09-27] MEDS: CHLORHEXIDINE GLUCONATE 15 ML CUP MUCOUS MEM SCH ×2 (08:11→21:11)
[2018-09-27] MEDS: PANTOPRAZOLE 40 MG/10 ML VIAL IVP SCH (08:16)
--- NOTE | 2018-09-27 08:59 | PN ---
PROGRESS NOTE Mr. Rowley is a 52-year-old male who presented with severe dyspnea with bilateral massive pulmonary embolism with respiratory failure. He received tPA. He continues to be with a trach, but he had a collar trach yesterday. He is doing well. He is more awake and alert. He has no malignant arrhythmia. He continues to be in sinus mechanism. He had some episode of hypertension. His urine output has been stable. He has had acute renal injury and was on hemodialysis. He has not been on hemodialysis for the last few days. He continues to be on amiodarone 200 mg daily, hydralazine 50 mg 3 times a day, metoprolol 50 mg 3 times a day, and Xarelto 15 mg twice a day. PHYSICAL EXAMINATION: Blood pressure running in the 140s with a heart rate in the 80s. LUNGS: Clear anteriorly. HEART: Regular rate and rhythm S1, S2. No S3. No rub. ABDOMEN: Soft, obese. EXTREMITIES: +1 edema. LAB DATA: BUN and creatinine of 91 and 0.34 that has been stable. Potassium 3.5. His magnesium is 2.6. IMPRESSION: 1. Status post massive bilateral pulmonary embolism on anticoagulation at this point. 2. Respiratory failure on the tracheostomy at this time. 3. Acute kidney injury, stabilizing. 4. Atrial arrhythmia, stabilizing. 5. Morbid obesity. 6. Tracheostomy and PEG tube. RECOMMENDATIONS: I will continue present antihypertensive regimen. His blood pressure is elevated. Further adjustment will be needed. We will continue on the trial with the trach collar. Physical therapy will be working with him. The patient is improving gradually. MMODL / IJN: [id number] /
[2018-09-27] MEDS: POTASSIUM CHLORIDE 20 MEQ in WATER FOR INJECTION 1 100ML.BAG IVPB SCH ×2 (09:38→12:14)
--- NOTE | 2018-09-27 10:23 | P.PN ---
Subjective 52-year-old male with a known history of chronic bilateral lower extremity lymphedema and history of pulmonary embolism about a year ago, currently not taking Coumadin for the past 6-8 months came to ER with complaints of acute worsening shortness of breath since yesterday. Patient says that he has been having shortness of breath for the last couple of weeks but suddenly got worse yesterday. Patient was told that his DVT and pulmonary embolus was secondary to sedentary lifestyle and sleeping in a sitting position. Patient states he took his Coumadin for about 6 months. He was so several follow-up appointment in November for repeat evaluation however he did not follow-up with that appointment. He stopped his Coumadin in November. Denies any constitutional symptoms. Patient feels much more short of breath with exertion. Chest pain. He feels as though both of his legs are much more edematous than usual suspicion is right lower extremity. Lower extremity duplex scan showed acute DVT right popliteal vein through the proximal calf veins CTA chest showed massive bilateral pulmonary embolism with right ventricular enlargement suggestive of right ventricular strain correlate clinically. A 7 mm and 4 mm right lower lobe pulmonary nodule not seen previous exam subpleural in location could be inflammatory. WBC 14.1 Troponin 0.258 Potassium 5.3 On 09/09/2018 Patient had a brief episode of cardiopulmonary arrest this morning and developed respiratory distress. Subsequently patient was intubated and was transferred to MICU. Patient had a difficult intubation. Patient was given TPA by ER physician. Patient also received multiple doses of epinephrine and sodium bicarbonate. Patient is currently on Levophed drip. Being continued on heparin drip as well. Patient is currently sedated. Initial ABG showed pH 7.0, pCO2 80, pO2 118 Patient was seen by cardiology and pulmonary. 09/10/2018 Patient is currently mechanically ventilated and sedated. Patient is being continued on heparin drip. Continues to be on Levothroid drip. Patient had SVT during cardiopulmonary arrest. Patient was started on amiodarone.. Otherwise hemoglobin dropped to 10.7 today. Continues to have bloody secretions which is being suctioned. Chest x-ray showed bilateral pleural effusion and consolidation. AST 559 and ALT 509 albumin 2.6. Cultures negative so far. Creatinine 1.76. 09/11/2018 52-year-old gentleman with a history of massive bilateral pulmonary embolism right ventricular enlargement and right heart strain. He did receive systemic TPA and was on IV heparin until yesterday which time was turned off because of ongoing bleeding. The patient's overall prognosis remains very guarded. The patient remains on ventilator. Arterial blood gases show a PaO2 of 113 PaCO2 38 and a pH of 7.4. The patient is on saline at 75 mL an hour; Heparin was discontinued yesterday because of ongoing bleeding from the cavity and NG tube. In addition, he's had about a 1 g hemoglobin drop on a daily basis. This morning's hemoglobin is 9.9. 09/12/2018; The patient's overall prognosis remains very guarded. The patient was given a daily interruption of sedation today but could not have a spontaneous breathing trial because he became very tachypnea with respiratory rates above 40. Currently, he is on the volume assist control mode rate of 32, tidal volume 500 , FiO2 35% to be increased to 40% and 5 of PEEP. Arterial blood gases showed a PaO2 of 59 a PaCO2 of 43 and a pH 7.37. That was on 35% FiO2. In addition, the patient's on norepinephrine at 7 mics per minute, propofol at 65 mcg/kg/m, saline IV at 75 mL an hour, heparin via weightbase protocol and vital 1.2 at goal. Chest x-ray shows bilateral effusions with basilar atelectasis and/or infiltrates. On 09/15/2018 Patient currently on mechanical ventilation with assist control and sedation. Patient is being continued on IV heparin. Hemoglobin is 7.5. Renal function slightly worsened with increasing creatinine level 3.56. No active bleeding noted. Chest x-ray showed bilateral pleural effusion and pulmonary vascular congestion. Patient was given a dose of Lasix previously. Patient is currently on antibiotics in the form of Zosyn. 09/16/2018 Patient was seen and examined in the MICU. Currently maintained on mechanical ventilator. Hemoglobin dropped to 5.9 today. 2 units of PRBC was ordered. No signs of active bleeding noted. Patient is being continued on IV heparin. Chest x-ray showed evidence of bilateral consolidation and pleural effusion. Correlate for pulmonary edema and diffuse pneumonia. Currently on Lasix drip. Creatinine level increased to 3.89 today. Otherwise patient is getting empiric antibiotics for possible pneumonia aspiration likely. Patient is being followed by pulmonary cardiology and nephrology. 09/17/2018 Patient is currently on mechanical ventilator. Chest x-ray showed possible fluid overload/pneumonia. Creatinine is trending up at 4.7 today. Hemoglobin is 7.6. Continued on IV heparin. held for permacath placement. Nephrology is planning for hemodialysis. No fever no chills. 09/20/2018 Patient is on mechanical ventilator. Patient is off sedation and is able to blink his eyes. Patient is being continued on hemodialysis. Patient had 3 hemodialysis sessions last one yesterday. Continued on IV antibiotics the form of Zosyn. Leukocytosis slightly improved to 23.7, hemoglobin 9.5 No other acute overnight issues. 09/21/2018 Patient remained on mechanical ventilator. Off sedation and also support. Patient does have slight improvement in mental status. Patient is extremely lethargic and follows simple commands. Hemoglobin is 9.0. Leukocytosis is improved to 17.3. Patient is getting hemodialysis today. Creatinine level IV.82. Chest x-ray showed evidence of congestive heart failure and pleural effusion noted. Patient is afebrile. Blood pressure is maintained. 09/26/2018 Patient is responding to commands patient has a tracheostomy in place. His creatinine has worsened a little bit discussed with the sister at bedside. Patient has weakness secondary to prolonged hospitalization and ICU hospitalization and being on sedation for long time. Decision regarding continuation of hemodialysis will be made on Friday after that patient probably can be discharged to [facility]. Patient is not on ventilator support is on CPAP at this time. 09/27/2018 Patient is doing much better today more awake. Patient is mostly in CPAP occasional ventilatory support. Patient's creatinine marginally improved hopefully may not require dialysis possibly of discharge to [facility] tomorrow. Objective - Vital Signs Vital signs: Vital Signs Temp 98.2 F 09/27/18 04:00 Pulse 93 09/27/18 09:00 Resp 16 09/27/18 09:00 BP 168/102 09/27/18 09:00 Pulse Ox 98 09/27/18 09:00 Intake & Output 09/26/18 09/27/18 09/27/18 19:59 06:59 18:59 Intake Total 276 Output Total 360 Balance -84 Weight Intake: IV 69 Bumetanide 12 mg In Dextrose 5% in Water 192 ml @ 0.5 MG/HR 10 mls/hr IV .Q24H [facility] Rx#: [id number] Piperacillin-Tazobactam 3 .375 gm In Sodium Chloride 0.9% 100 ml @ 25 mls/hr IVPB Q8H [facility] Rx#: [id number] Pressure bag 9 Sodium Chloride 0.9% 1, 60 000 ml @ 20 mls/hr IV . Q24H [facility] Rx#:[id number] Tube Feeding 147 Other 60 Output: Urine 360 Stool Other: Voiding Method # Bowel Movements ABP, PAP, CO, CI - Last Documented Arterial Blood Pressure 130/68 - Exam PHYSICAL EXAMINATION: GENERAL: The patient is awake following commands does have tracheostomy in place , moderately obese HEENT: Pupils are round and equally reacting to light. EOMI. No scleral icterus. No conjunctival pallor. Normocephalic, atraumatic. No pharyngeal erythema. No thyromegaly. CARDIOVASCULAR: S1 and S2 present. No murmurs, rubs, or gallops. PULMONARY: Chest is clear to auscultation, no wheezing or crackles. ABDOMEN: Soft, nontender, nondistended, normoactive bowel sounds. No palpable organomegaly. PEG tube in place MUSCULOSKELETAL: No joint swelling or deformity. EXTREMITIES: No cyanosis, clubbing, or pedal edema. NEUROLOGICAL: Generalized weakness secondary to hospitalization SKIN: No rashes. - Labs CBC & Chem 7: 09/27/18 04:35 09/27/18 04:35 Labs: Abnormal Lab Results - Last 24 Hours (Table) 09/26/18 09/26/18 09/26/18 Range/Units 12:02 18:38 23:24 RBC (4.30-5.90) m/uL Hgb (13.0-17.5) gm/dL Hct (39.0-53.0) % MCHC (31.0-37.0) g/dL RDW (11.5-15.5) % Sodium (137-145) mmol/L Carbon Dioxide (22-30) mmol/L BUN (9-20) mg/dL Creatinine (0.66-1.25) mg/dL Glucose (74-99) mg/dL POC Glucose (mg/dL) 126 H 114 H 132 H (75-99) mg/dL Phosphorus (2.5-4.5) mg/dL Magnesium (1.6-2.3) mg/dL 09/27/18 09/27/18 09/27/18 Range/Units 04:35 04:35 06:18 RBC 3.48 L (4.30-5.90) m/uL Hgb 10.3 L (13.0-17.5) gm/dL Hct 33.3 L (39.0-53.0) % MCHC 30.8 L (31.0-37.0) g/dL RDW 15.9 H (11.5-15.5) % Sodium 148 H (137-145) mmol/L Carbon Dioxide 32 H (22-30) mmol/L BUN 91 H (9-20) mg/dL Creatinine 4.34 H (0.66-1.25) mg/dL Glucose 135 H (74-99) mg/dL POC Glucose (mg/dL) 136 H (75-99) mg/dL Phosphorus 5.2 H (2.5-4.5) mg/dL Magnesium 2.6 H (1.6-2.3) mg/dL Assessment and Plan Plan: Acute cardiopulmonary arrest secondary to to pulmonary embolism. presently has tracheostomy and not requiring ventilator support Acute hypercapnic, hypoxic respiratory failure secondary to massive bilateral pulmonary embolism. Status post tracheostomy and PEG tube placement Massive pulmonary embolism with right ventricular strain. Patient was given TPA during CPR Acute hypotension . S/P pressor support. 2-D echocardiogram showed normal LV function acute kidney injury due to ATN. Started on hemodialysis during this laceration. Presently on hold creatinine stable patient is urinating Possible aspiration pneumonia Elevated troponin level secondary to right ventricular strain Acute lower extremity DVT Previous history of smoking Bilateral lower extremity chronic lymphedema Morbid obesity with BMI 43.7 Seborrheic dermatitis history Anxiety morbid obesity Dry gangrene of the left fifth toe probably secondary to norepinephrine he was on. Plan: Continue on current medication regime ,monitoring and symptomatic treatment. Neuro workup in progress as mentioned above, with EEG and CT results pending. Hemodialysis catheter removed, not replaced .close monitoring of renal function with repeat labs ordered for a.m. PT/OT. Sister updated at bedside. Prognosis guarded given multiple complex medical issues. Further recommendations to follow
--- NOTE | 2018-09-27 11:13 | P.PN ---
Subjective Progress Note Date: 09/27/18 Principal diagnosis: Acute hypoxic respiratory failure secondary to massive bilateral pulmonary embolism. Status post cardiopulmonary arrest and status post TPA treatment. On 09/14/2018, I am seeing this patient for a follow-up in the intensive care unit. The patient was in following a massive but the pulmonary embolism, right ventricular enlargement and right ventricular strain pattern with subsequent hemodynamic collapse and cardiac arrest. The patient is post TPA infusion at time of the code. The patient is currently on IV heparin. In terms of his breathing, the patient is intubated on a mechanical ventilator. The patient is currently on an assist-control mode at the rate of 32 with a tidal volume of 500 and FiO2 of 50% with a PEEP of 10. The chest x-ray from today shows adequate positioning of 82. There is some atelectatic changes and infiltration of the right lung base. Meanwhile, the blood gases from today showed a pH of 7.32 with a pCO2 of 48 and pO2 of 116 and this was done on the above-mentioned ventilator settings. No significant orotracheal secretions. Breath other are equal and bilateral. Airway pressures are not elevated. Hemodynamically, the patient is on pressors at 3 mics of norepinephrine infusion for blood pressure support. He has been aggressively resuscitated IV fluids and a noted significant amount of weight gain over the past several days. The patient was given a dose of Lasix yesterday. In addition the patient was having episodes of SVTs throughout his current hospitalization and he was treated with adenosine and currently is on amiodarone orally 5 mg by mouth twice a day and his cardiac rhythm is normalized and his in sinus rhythm. Echocardiogram, the patient has an ejection fraction of 6065%. The rhythm to Doxil septal motion abnormality consistent with right ventricular volume/strain pattern. Of interest also is development of acute kidney injury. The patient came in initially with a normal renal function. Subsequently creatinine came up to 1.7 and currently is up to 2.41. He was given a dose of Lasix yesterday and none since yesterday. The patient is nonoliguric. The net fluid balance over the past 24 hours is +825 mL. He is having loose liquidy bowel movement. He is currently on vital 1.2 at the rate of 35 mL an hour. He is sedated with Diprivan. Lower oximetry is a swallow with extensive swelling of the right lower extremity which also has a DVT. The patient is having on and off low- grade fever and the patient is currently on IV Ancef. Most recent hemoglobin is at 8.0. White cell count is not elevated at 7.1. He remains on IV heparin regarding the massive bilateral pulmonary embolism. Reevaluated today on 09/21/2018, patient remains off sedation for the last 2 days, minimal slow improvement in his overall mentation, patient is lethargic, arousable, follows very simple commands, like squeezing hands and wiggling toes. He seems to be profoundly weak, unable to move extremities against gravity. His ventilator settings are tidal volume of 500 assist control rate of 20 FiO2 of 40% and PEEP of 5. ABG this morning showed a pO2 of 115 pCO2 of 51 pH of 7.33. His labs were all reviewed including WBC count of 17.3 hemoglobin of 9.0. Electrolytes were noted to be relatively normal however his BUN is 97 creatinine is 4.82, patient remains on hemodialysis via a dialysis catheter in the right groin. Chest x-ray continues to show evidence of congestive heart failure possibly basilar effusions noted. Patient was reevaluated today on 09/22/2018, remains on mechanical ventilation, remained generally weak, follows very simple instructions but extremely weak, patient does not have a good gag reflex, cannot maintain a good eye contact, cannot raise his arms or legs against gravity, and he is profoundly weak. His ventilator settings are tidal volume of 500 assist control rate of 20 FiO2 of 40 % and PEEP of 5. Chest x-ray is showing now some component of interstitial edema. Pneumonia is not entirely ruled out. ABG this morning showed a pO2 of 99 pCO2 of 49 pH of 7.46. Renal functioning remains poor, BUN is 88 creatinine 4.68. WBC count is 15.8 hemoglobin is 8.8. Apparently the patient sustained acute kidney injury secondary to ATN from hypotension. Remains hemodialysis dependent. Patient remains on IV heparin and he was initially given TPA. Presently in sinus rhythm. And clearly the chest x-ray is consistent with mild pulmonary edema. Patient was reevaluated today on 09/23/2018, remains on the same ventilatory settings, patient is hemodynamically stable, remains on heparin, Mental status and neurological status is basically about the same, patient opens eyes, follows very simple instructions, but he is profoundly weak. Cannot even raise his hands or legs against gravity. He could squeeze hands, wiggling toes, and he does not maintain a good eye contact. He is scheduled to have a PEG tube placement and tracheostomy today. His heparin has been on hold for the last 4 hours. All his labs were reviewed, chest x-ray was also reviewed. Patient remains on hemodialysis on a daily basis as per nephrology. ABG today showed a pO2 of 103 pCO2 of 54 pH of 7.31. Chest x-ray continues to show small bilateral pleural effusions mostly consistent with pulmonary edema and fluid overload secondary to his renal failure and recent cardiopulmonary arrest. Strongly doubt pneumonia. Reevaluated today on 09/24/2018, patient remains on the same ventilatory settings , mental status is basically about the same, overall neurological status is basically the same, patient underwent tracheostomy and PEG tube placement yesterday. Both procedures were uneventful. Patient was placed back on heparin last night, and he remains on heparin. However nephrology is having issues with a dialysis catheter, and may have to come out, and we may have to hold heparin again. I instructed the nurses to hold the heparin for a couple of hours before the catheter is removed, and if no plans to place a dialysis catheter again patient should be started on Xarelto instead. However if they are planning to place the catheter again, patient will need to go back on heparin after the catheter is removed. Labs were reviewed, pO2 is 109 pCO2 of 49 pH of 7.34. CBC is relatively unremarkable, WBC count is 12.7 hemoglobin is 9.4. Renal profile remains poor with BUN of 72 creatinine of 3.78. Patient is clinically about the same, no change whatsoever except now he has a tracheostomy and a PEG tube. Opens eyes, follows very simple instructions mostly wiggling toes and squeezing hands, otherwise he is profoundly weak. Reevaluated today on 09/25/2018, patient remains on mechanical ventilation, however earlier this morning he was placed on pressure support of 8 and CPAP, and he seems to be doing excellent, good tidal volumes, reasonable a respiratory rate in the 20s, patient is definitely more awake today, he is able to hold his hands and arms against gravity. Seems to be more responsive, even his eye contact seems to be better. His dialysis catheter was removed yesterday , he is now on Xarelto, and at this point at least no plans to place a dialysis catheter again. Patient continues to have good urine output. Chest x-ray continues to show some atelectasis, possibly infiltrates in the lower lobes. ABG showed a pO2 of 91 pCO2 of 46 pH of 7.40. CBC is relatively normal. Electrolytes are normal BUN is 72 creatinine is 3.81. Seen by neurology yesterday, felt that the patient has metabolic encephalopathy which is expected. EEG is being performed this morning, results are pending. Patient is tolerating PEG tube feeding nicely, and his tracheostomy seems to be intact. Patient was reevaluated today on 09/26/2018, still on mechanical ventilation, and his ventilator settings are tidal volume of 500 assist control rate of 20 FiO2 is 40% and PEEP is 5. Patient has been intermittently tolerating pressure support of 8 and CPAP, and I plan to switch him again today to pressure support and CPAP. Overall the patient is basically the same as he was yesterday, no major jacket changer the last 24 hours. He was placed earlier on pressure support of 8 and CPAP, and as he was being changed, became agitated with significantly elevated blood pressure and respiratory rate, he was placed back on assist control mode of mechanical ventilation, and now that I saw the patient I switch him back to pressure support and CPAP. His renal functioning seems to be getting worse, urine output remains excellent, and he remains hemodynamically stable. As a matter of fact I have added more blood pressure medications to control his blood pressure. Patient is still on hydralazine and on metoprolol. Labs were reviewed ABG showed a pO2 of 124 pCO2 of 51 pH of 7.38. And this is on 40% FiO2. Basic metabolic profile is normal BUN is 81 creatinine is 4.59. Patient has not been dialyzed over the last 2 days. As a matter of fact his dialysis catheter was actually removed. Hoping he doesn't need any more dialysis. WBC count is 9.5 hemoglobin is 10.6. Chest x-ray continues to show by basilar atelectasis, possibility of pneumonia/aspiration pneumonia is possible but not entirely confirmed. Reevaluated today on 09/2018, patient is now on pressure support of 8 and CPAP. Seems to be tolerating that mode of mechanical ventilation quite well. His renal functioning is improving, urine output is reasonable. Patient has not had any dialysis in the last few days. He tolerated the trach collar for about 3 hours yesterday. May even consider trach collar trial again if he does extremely well with pressure support and CPAP today. Patient seems to be awake , follows simple instructions, seems to have a bit more strength in his upper extremities. Able to raise them today on against gravity. Chest x-ray was reviewed, continues to show some basilar atelectasis. But better aeration compared to the last few days. Basic metabolic profile showed hyponatremia with elevated BUN of 91 and creatinine is 4.34, improved compared to yesterday. Patient is being evaluated for possible referral to he is not requiring any pressors. Nutrition-weber he is receiving feeding via PEG tube. Objective - Vital Signs Vital signs: Vital Signs Temp 98.2 F 09/27/18 04:00 Pulse 91 09/27/18 10:00 Resp 15 09/27/18 10:00 BP 146/71 09/27/18 10:00 Pulse Ox 97 09/27/18 10:00 Intake & Output 09/26/18 09/27/18 09/27/18 19:59 06:59 18:59 Intake Total 325 Output Total 360 Balance -35 Weight Intake: IV 69 Bumetanide 12 mg In Dextrose 5% in Water 192 ml @ 0.5 MG/HR 10 mls/hr IV .Q24H [facility] Rx#: [id number] Piperacillin-Tazobactam 3 .375 gm In Sodium Chloride 0.9% 100 ml @ 25 mls/hr IVPB Q8H [facility] Rx#: [id number] Pressure bag 9 Sodium Chloride 0.9% 1, 60 000 ml @ 20 mls/hr IV . Q24H [facility]OVANNY Rx#:[id number] Tube Feeding 196 Other 60 Output: Urine 360 Stool Other: Voiding Method # Bowel Movements ABP, PAP, CO, CI - Last Documented Arterial Blood Pressure 130/68 - Exam Physical Exam: 52-year-old on pressure support and CPAP mode of mechanical ventilation. Which she seems to tolerate quite well. Head: Atraumatic, normocephalic. Tracheostomy tube is intact. No icterus. Left subclavian central line is noted. HEENT:[ Short obese neck Neck is supple.] [No neck masses.] [No thyromegaly.] [ No JVD.] Tracheostomy is intact. Chest: [Diminished breath sounds at the bases, no rhonchi and no wheezes.. Cardiac Exam: [Normal S1 and S2, no S3 gallop, no murmur.] Abdomen: [Soft, nontender, no megaly, no rebound, no guarding, normal bowel sounds.] Extremities negative edema.]. Good pulses bilaterally. Neurological Exam: Awake, follows all instructions, better eye contact and noted , can raise arms and hands against gravity today. Psychiatric: Blunted affect, otherwise cannot be assessed. Lymphatics: No lymphadenopathy. Skin: No rashes, minimal bipedal edema. - Labs CBC & Chem 7: 09/27/18 04:35 09/27/18 04:35 Labs: Abnormal Lab Results - Last 24 Hours (Table) 09/26/18 09/26/18 09/26/18 Range/Units 12:02 18:38 23:24 RBC (4.30-5.90) m/uL Hgb (13.0-17.5) gm/dL Hct (39.0-53.0) % MCHC (31.0-37.0) g/dL RDW (11.5-15.5) % Sodium (137-145) mmol/L Carbon Dioxide (22-30) mmol/L BUN (9-20) mg/dL Creatinine (0.66-1.25) mg/dL Glucose (74-99) mg/dL POC Glucose (mg/dL) 126 H 114 H 132 H (75-99) mg/dL Phosphorus (2.5-4.5) mg/dL Magnesium (1.6-2.3) mg/dL 09/27/18 09/27/18 09/27/18 Range/Units 04:35 04:35 06:18 RBC 3.48 L (4.30-5.90) m/uL Hgb 10.3 L (13.0-17.5) gm/dL Hct 33.3 L (39.0-53.0) % MCHC 30.8 L (31.0-37.0) g/dL RDW 15.9 H (11.5-15.5) % Sodium 148 H (137-145) mmol/L Carbon Dioxide 32 H (22-30) mmol/L BUN 91 H (9-20) mg/dL Creatinine 4.34 H (0.66-1.25) mg/dL Glucose 135 H (74-99) mg/dL POC Glucose (mg/dL) 136 H (75-99) mg/dL Phosphorus 5.2 H (2.5-4.5) mg/dL Magnesium 2.6 H (1.6-2.3) mg/dL Assessment and Plan Assessment: Impression: 1 acute hypoxic respiratory failure secondary to massive bilateral pulmonary embolism. Status post cardiopulmonary arrest, status post TPA treatment, remains on heparin. Remains on mechanical ventilation. Tolerating intermittent modes of pressure support of 8 and CPAP., And at one point he tolerated 3 hours of trach collar yesterday. 2 massive pulmonary embolism with right ventricular strain and subsequent cardiac arrest. 3 acute metabolic encephalopathy, related to anoxic brain injury 4 acute kidney injury secondary to hypotension and acute tubular necrosis, remains on dialysis. Patient has nonoliguric renal failure, urine output is adequate, no plans to place dialysis catheter again. 5 acute deep vein thrombosis of right lower extremity, presently on heparin. 6 chronic normocytic anemia, likely multifactorial. 7 history of smoking 8 morbid obesity with BMI of 46.5 9 possible aspiration pneumonia, as noted on the chest x-ray, but not truly confirmed, chest x-ray is showing improvement with bibasilar atelectasis , some improvement noted on the chest x-ray today. Better aeration to the bases noted. 10 status post cardiopulmonary arrest secondary to massive pulmonary embolism. 11 status post tracheostomy and PEG tube placement on 09/23/2018. 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 Will definitely require long-term physical therapy, and long-term facility for rehabilitation. Recommendation: Will give the patient a trial of pressure support and CPAP again , may consider trach collar trials. In the meantime continue Xarelto, continued nutritional support, continue antibiotics and/Zosyn empirically, continue to monitor renal profile, may or may not require dialysis. Patient will be considered for transfer to long-term ventilator facility in the next 24 hours. Critical care time is 40 minutes. His sister was updated yesterday on his condition. Time with Patient: Greater than 30
[2018-09-27] MEDS: MULTIVITAMINS, THERA 1 EACH TAB PO SCH (12:59)
[2018-09-27 13:11] LABS: Glucose,Whole Blood 114 mg/dL (75-99)
[2018-09-27] MEDS: HYDROmorphone 1 MG/ML 1 ML SYRINGE IVP PRN ×2 (14:16→18:08)
--- NOTE | 2018-09-27 15:17 | PN ---
PROGRESS NOTE Patient is seen for followup for acute kidney injury. The patient had been on dialysis. However, dialysis is been on hold for about 2 days now. The serum creatinine was elevated to 4.5 mg/dL from 3.8 yesterday. At that time, Bumex drip was discontinued. The patient is maintained on IV push Bumex. He continues to have good urine output and his creatinine is down to 4.3. The patient remains off for hemodialysis. This morning he is awake. He is comfortable. He is maintained on a trach collar. Blood pressure was 168/87, heart rate 96 per minute. Patient is afebrile. Examination of the heart: S1, S2. Examination of the lungs: Bilateral breath sounds are heard. Abdomen is soft, nontender, obese. Examination lower extremities shows chronic skin changes, chronic edema bilaterally. [employer] exam shows patient is following commands. LABS: Show sodium 140, potassium 3.5, BUN 91, serum creatinine 4.34, calcium 10.1, hemoglobin 10.3 g/dL. ASSESSMENT: 1. Acute kidney injury, acute tubular necrosis, currently nonoliguric. Continue with current dose of Bumex. 2. Mild hypernatremia. We will increase free water down the feeding tube. We may need to decrease the dose of Bumex depending on volume status tomorrow. 3. Hypokalemia. We will replace and this is secondary to diuresis. 4. Vent dependent respiratory failure, currently maintained on trach collar. Doing fairly well. 5. Status post cardiac arrest. 6. Pulmonary embolism, maintained on anticoagulation. PLAN: Increase free water. Continue with current dose of Bumex and continue to maintain patient off of hemodialysis for now. MMODL / IJN: [id number] /
--- NOTE | 2018-09-27 18:04 | P.PN ---
Subjective Progress Note Date: 09/18/18 Principal diagnosis: Massive pulmonary embolism Acute cardiopulmonary arrest status post CPR and intubation Patient is a 52-year-old male with a known history of chronic bilateral lower extremity lymphedema and history of pulmonary embolism about a year ago, currently not taking Coumadin for the past 6-8 months came to ER with complaints of acute worsening shortness of breath since yesterday. Patient says that he has been having shortness of breath for the last couple of weeks but suddenly got worse yesterday. Patient was told that his DVT and pulmonary embolus was secondary to sedentary lifestyle and sleeping in a sitting position. Patient states he took his Coumadin for about 6 months. He was so several follow-up appointment in November for repeat evaluation however he did not follow-up with that appointment. He stopped his Coumadin in November. Denies any constitutional symptoms. Patient feels much more short of breath with exertion. Chest pain. He feels as though both of his legs are much more edematous than usual suspicion is right lower extremity. Lower extremity duplex scan showed acute DVT right popliteal vein through the proximal calf veins CTA chest showed massive bilateral pulmonary embolism with right ventricular enlargement suggestive of right ventricular strain correlate clinically. A 7 mm and 4 mm right lower lobe pulmonary nodule not seen previous exam subpleural in location could be inflammatory. WBC 14.1 Troponin 0.258 Potassium 5.3 On 09/09/2018 Patient had a brief episode of cardiopulmonary arrest this morning and developed respiratory distress. Subsequently patient was intubated and was transferred to MICU. Patient had a difficult intubation. Patient was given TPA by ER physician. Patient also received multiple doses of epinephrine and sodium bicarbonate. Patient is currently on Levophed drip. Being continued on heparin drip as well. Patient is currently sedated. Initial ABG showed pH 7.0, pCO2 80, pO2 118 Patient was seen by cardiology and pulmonary. 09/10/2018 Patient is currently mechanically ventilated and sedated. Patient is being continued on heparin drip. Continues to be on Levothroid drip. Patient had SVT during cardiopulmonary arrest. Patient was started on amiodarone.. Otherwise hemoglobin dropped to 10.7 today. Continues to have bloody secretions which is being suctioned. Chest x-ray showed bilateral pleural effusion and consolidation. AST 559 and ALT 509 albumin 2.6. Cultures negative so far. Creatinine 1.76. 09/11/2018 52-year-old gentleman with a history of massive bilateral pulmonary embolism right ventricular enlargement and right heart strain. He did receive systemic TPA and was on IV heparin until yesterday which time was turned off because of ongoing bleeding. The patient's overall prognosis remains very guarded. The patient remains on ventilator. Arterial blood gases show a PaO2 of 113 PaCO2 38 and a pH of 7.4. The patient is on saline at 75 mL an hour; Heparin was discontinued yesterday because of ongoing bleeding from the cavity and NG tube. In addition, he's had about a 1 g hemoglobin drop on a daily basis. This morning's hemoglobin is 9.9. 09/12/2018; The patient's overall prognosis remains very guarded. The patient was given a daily interruption of sedation today but could not have a spontaneous breathing trial because he became very tachypnea with respiratory rates above 40. Currently, he is on the volume assist control mode rate of 32, tidal volume 500 , FiO2 35% to be increased to 40% and 5 of PEEP. Arterial blood gases showed a PaO2 of 59 a PaCO2 of 43 and a pH 7.37. That was on 35% FiO2. In addition, the patient's on norepinephrine at 7 mics per minute, propofol at 65 mcg/kg/m, saline IV at 75 mL an hour, heparin via weightbase protocol and vital 1.2 at goal. Chest x-ray shows bilateral effusions with basilar atelectasis and/or infiltrates. On 09/15/2018 Patient currently on mechanical ventilation with assist control and sedation. Patient is being continued on IV heparin. Hemoglobin is 7.5. Renal function slightly worsened with increasing creatinine level 3.56. No active bleeding noted. Chest x-ray showed bilateral pleural effusion and pulmonary vascular congestion. Patient was given a dose of Lasix previously. Patient is currently on antibiotics in the form of Zosyn. 09/16/2018 Patient was seen and examined in the MICU. Currently maintained on mechanical ventilator. Hemoglobin dropped to 5.9 today. 2 units of PRBC was ordered. No signs of active bleeding noted. Patient is being continued on IV heparin. Chest x-ray showed evidence of bilateral consolidation and pleural effusion. Correlate for pulmonary edema and diffuse pneumonia. Currently on Lasix drip. Creatinine level increased to 3.89 today. Otherwise patient is getting empiric antibiotics for possible pneumonia aspiration likely. Patient is being followed by pulmonary cardiology and nephrology. 09/17/2018 Patient is currently on mechanical ventilator. Chest x-ray showed possible fluid overload/pneumonia. Creatinine is trending up at 4.7 today. Hemoglobin is 7.6. Continued on IV heparin. held for permacath placement. Nephrology is planning for hemodialysis. No fever no chills. 09/18/2018 Patient is currently intubated and on mechanical ventilator. Permacath was placed in the right groin and was started on hemodialysis. He is able to open his eyes with verbal stimuli. Currently not following any other commands. Still is very lethargic and encephalopathic. Chest x-ray showed lower lobe infiltrates probably combination of pneumonia and fluid overload. Patient is being continued on Zosyn. Patient is also on Lasix drip and also Salas accident. Continue with IV heparin. Nephrology and pulmonary is following. Patient did have good urine output and also had 2 loose bowel movements yesterday.. Active Medications Active Medications Generic Name Dose Route Start Last Admin Trade Name Freq PRN Reason Stop Dose Admin Albuterol/Ipratropium 3 ml 09/09/18 09:37 Duoneb 0.5 Mg-3 Mg/3 Ml Soln INHALATION RT-Q2H PRN Shortness Of Breath Or Wheezing Albuterol/Ipratropium 3 ml 09/09/18 12:00 09/20/18 23:21 Duoneb 0.5 Mg-3 Mg/3 Ml Soln INHALATION 3 ml RT-Q4H GIOVANNY Administration Amiodarone HCl 200 mg 09/20/18 21:00 09/20/18 22:29 Cordarone PO 200 mg BID GIOVANNY Administration Calcium Acetate 667 mg 09/17/18 07:30 09/20/18 17:14 Phoslo PO 667 mg TID-W/MEALS GIOVANNY Administration Chlorhexidine Gluconate 15 ml 09/09/18 21:00 09/20/18 22:29 Peridex MUCOUS MEM 15 ml BID GIOVANNY Administration Heparin Sodium (Porcine) 0 unit 09/08/18 10:49 09/09/18 04:34 Heparin IV 4,000 unit PER PROTOCOL PRN Administration Low PTT Protocol Hydralazine HCl 10 mg 09/18/18 21:19 09/20/18 04:53 Apresoline IVP 10 mg Q4HR PRN Administration Blood Pressure - High Hydralazine HCl 25 mg 10/28/18 09:30 09/20/18 22:29 Apresoline PO 25 mg QID GIOVANNY Administration Hydromorphone HCl 1 mg 09/10/18 17:33 09/20/18 18:01 Dilaudid IVP 1 mg Q1HR PRN Administration Mild to Moderate Pain Hydromorphone HCl 2 mg 09/10/18 17:33 09/20/18 21:18 Dilaudid IVP 2 mg Q1HR PRN Administration Moderate to Severe Pain Heparin Sodium/Sodium Chloride 500 mls @ 45.95 mls/hr 09/08/18 11:00 11:50 25,000 unit/ Sodium Chloride IV 16 units/kg/hr .[id number] GIOVANNY 49.35 mls/hr Administration Protocol 14.9 UNITS/KG/HR Propofol 1,000 mg/ IV Solution 100 mls @ 0 mls/hr 09/09/18 09:45 09/18/18 09: 02 IV 0 mcg/kg/min .Q0M GIOVANNY 0 mls/hr Titration Protocol Titrate Norepinephrine Bitartrate 16 250 mls @ 0 mls/hr 09/09/18 10:00 09/15/18 14:40 mg/ Sodium Chloride IV 0 mcg/min .Q0M GIOVANNY 0 mls/hr Titration Protocol Titrate Sodium Chloride 1,000 mls @ 20 mls/hr 09/10/18 12:45 09/20/18 22:31 Saline 0.9% IV 20 mls/hr .Q24H GIOVANNY Administration Acetaminophen 1,000 mg/ IV 100 mls @ 400 mls/hr 09/13/18 20:44 09/13/18 21:55 Solution IVPB 400 mls/hr ONCE PRN Administration Fever>101 Piperacillin/Tazobactam/ 50 mls @ 12.5 mls/hr 09/14/18 10:00 09/20/18 18:01 Dextrose 3.375 gm/ IV Solution IVPB 12.5 mls/hr Q8H GIOVANNY Administration Bumetanide 12 mg/ Dextrose/ 240 mls @ 10 mls/hr 09/18/18 10:30 09/20/18 09:56 Water IV 0.5 mg/hr .Q24H GIOVANNY 10 mls/hr Administration 0.5 MG/HR Insulin Aspart 0 unit 09/10/18 06:00 09/20/18 18:08 Novolog SQ Not Given Q6HR [facility] Protocol Miscellaneous Information 1 each 09/10/18 16:16 Potassium Per Protocol MISCELLANE DAILY PRN Per Protocol Protocol Miscellaneous Information 1 each 09/10/18 22:11 Magnesium Per Protocol MISCELLANE DAILY PRN Per Protocol Protocol Multivitamins 1 each 09/09/18 12:00 09/20/18 11:49 Theragran PO 1 each DAILY@1200 GIOVANNY Administration Naloxone HCl 0.2 mg 09/08/18 15:00 Narcan IV Q2M PRN Opioid Reversal Pantoprazole Sodium 40 mg 09/10/18 09:00 09/20/18 08:25 Protonix IVP 40 mg DAILY GIOVANNY Administration Objective - Vital Signs Vital signs: Vital Signs Temp 98.3 F 09/18/18 16:00 Pulse 85 09/18/18 19:12 Resp 26 H 09/18/18 19:00 BP 119/65 09/16/18 14:03 Pulse Ox 99 09/18/18 19:00 Intake & Output 09/18/18 09/18/18 09/19/18 06:59 18:59 06:59 Intake Total 1212 1435.424 50 Output Total 1285 1151 75 Balance -73 284.424 -25 Weight 157.1 kg 157.1 kg Intake: IV 312 312 26 Pressure bag 72 72 6 Sodium Chloride 0.9% 1, 240 240 20 000 ml @ 20 mls/hr IV . Q24H [facility] Rx#:[id number] Intake, IV Titration 600 859.424 Amount Furosemide 250 mg In 250 Sodium Chloride 0.9% 225 ml @ 15 MG/HR 15 mls/hr IVP .[id number] GIOVANNY Rx#: [id number] Heparin Sod,Pork in 0.45% 500 500 NaCl 25,000 unit In 0.45 % NaCl 1 500ml.bag @ 14.9 UNITS/KG/HR 45.95 mls/hr IV .[id number] GIOVANNY Rx#: [id number] Propofol 1,000 mg In 100 109.424 Empty Bag 1 bag @ Titrate IV .Q0M [facility] Rx#: [id number] Tube Feeding 240 264 24 Other 60 Output: Urine 1285 1150 75 Stool 1 Other: Voiding Method Indwelling Catheter Indwelling Catheter # Bowel Movements 1 ABP, PAP, CO, CI - Last Documented Arterial Blood Pressure 153/77 - Exam PHYSICAL EXAMINATION: Patient is lying in the bed comfortably, currently intubated HEENT: Normocephalic. Neck is supple. Pupils reactive. Nostrils clear. Oral cavity is moist. Ears reveal no drainage. Neck reveals no JVD, carotid bruits, or thyromegaly. CHEST EXAMINATION: Trachea is central. Symmetrical expansion. Bibasilar diminished air entry and crackles present. CARDIAC: Normal S1, S2 with no gallops. No murmurs ABDOMEN: Soft. Bowel sounds normal. No organomegaly. No abdominal bruits. Extremities: Bilateral lower extremity lymphedema with 3+ edema. No clubbing or cyanosis Neurologically . Patient is awake. Extremity week. Currently intubated. Skin: No rash or skin lesions except above. Psychiatric: Could not be assessed at this time. - Labs CBC & Chem 7: 09/27/18 04:35 09/27/18 04:35 Labs: Abnormal Lab Results - Last 24 Hours (Table) 09/17/18 09/18/18 09/18/18 Range/Units 23:58 05:00 05:00 WBC 25.9 H (3.8-10.6) k/uL RBC 3.02 L (4.30-5.90) m/uL Hgb 9.4 L D (13.0-17.5) gm/dL Hct 27.9 L (39.0-53.0) % RDW 16.3 H (11.5-15.5) % Plt Count 458 H (150-450) k/uL Neutrophils # (Manual) 19.60 H (1.3-7.7) k/uL Monocytes # (Manual) 1.04 H (0-1.0) k/uL Eosinophils # (Manual) 0.78 H (0-0.7) k/uL Metamyelocytes # (Man) 3.11 H (0) k/uL Myelocytes # (Manual) 0.52 H (0) k/uL Nucleated RBCs 1 H (0-0) /100 WBC APTT (22.0-30.0) sec ABG pH (7.35-7.45) ABG pCO2 (35-45) mmHg ABG pO2 (83-108) mmHg ABG O2 Saturation (94-97) % BUN 80 H (9-20) mg/dL Creatinine 4.79 H (0.66-1.25) mg/dL Glucose 110 H (74-99) mg/dL POC Glucose (mg/dL) 124 H (75-99) mg/dL Phosphorus 9.7 H* (2.5-4.5) mg/dL Magnesium 2.9 H (1.6-2.3) mg/dL 09/18/18 09/18/18 09/18/18 Range/Units 05:00 05:13 06:01 WBC (3.8-10.6) k/uL RBC (4.30-5.90) m/uL Hgb (13.0-17.5) gm/dL Hct (39.0-53.0) % RDW (11.5-15.5) % Plt Count (150-450) k/uL Neutrophils # (Manual) (1.3-7.7) k/uL Monocytes # (Manual) (0-1.0) k/uL Eosinophils # (Manual) (0-0.7) k/uL Metamyelocytes # (Man) (0) k/uL Myelocytes # (Manual) (0) k/uL Nucleated RBCs (0-0) /100 WBC APTT 56.4 H (22.0-30.0) sec ABG pH 7.29 L (7.35-7.45) ABG pCO2 47 H (35-45) mmHg ABG pO2 113 H (83-108) mmHg ABG O2 Saturation 97.1 H (94-97) % BUN (9-20) mg/dL Creatinine (0.66-1.25) mg/dL Glucose (74-99) mg/dL POC Glucose (mg/dL) 114 H (75-99) mg/dL Phosphorus (2.5-4.5) mg/dL Magnesium (1.6-2.3) mg/dL 09/18/18 09/18/18 Range/Units 11:55 18:58 WBC (3.8-10.6) k/uL RBC (4.30-5.90) m/uL Hgb (13.0-17.5) gm/dL Hct (39.0-53.0) % RDW (11.5-15.5) % Plt Count (150-450) k/uL Neutrophils # (Manual) (1.3-7.7) k/uL Monocytes # (Manual) (0-1.0) k/uL Eosinophils # (Manual) (0-0.7) k/uL Metamyelocytes # (Man) (0) k/uL Myelocytes # (Manual) (0) k/uL Nucleated RBCs (0-0) /100 WBC APTT (22.0-30.0) sec ABG pH (7.35-7.45) ABG pCO2 (35-45) mmHg ABG pO2 (83-108) mmHg ABG O2 Saturation (94-97) % BUN (9-20) mg/dL Creatinine (0.66-1.25) mg/dL Glucose (74-99) mg/dL POC Glucose (mg/dL) 100 H 116 H (75-99) mg/dL Phosphorus (2.5-4.5) mg/dL Magnesium (1.6-2.3) mg/dL Microbiology - Last 24 Hours (Table) 09/12/18 01:35 Blood Culture - Final Blood No Growth after 144 hours Assessment and Plan Assessment: Acute cardiopulmonary arrest likely due to pulmonary embolism. Status post CPR and spontaneous return of circulation. Currently on mechanical ventilator. Acute hypercapnic respiratory failure. Currently on mechanical ventilator Massive pulmonary embolism with right ventricular strain. Patient was given TPA during CPR Acute hypotension . Was on on pressor support. 2-D echocardiogram showed normal LV function Pulmonary edema Possible right lower lobe pneumonia Nonoliguric acute kidney injury due to ATN. Started on hemodialysis during this admission. Acute on chronic anemia. Possible acute blood loss anemia Elevated troponin level secondary to right ventricular strain Acute lower extremity DVT Family history of pulmonary embolism in his brother Mild hyperkalemia 5.3 Recent history of pulmonary embolism about a year ago. Stopped taking Coumadin since November 2017 Previous history of smoking Bilateral lower extremity chronic lymphedema Morbid obesity with BMI 43.7 Seborrheic dermatitis history Anxiety Plan: Patient will be continued on IV heparin and monitor closely in the MICU. Patient was given TPA. Patient is off pressor support. Continue with IV diuresis Cardiology and pulmonary is following. Continue with mechanical ventilation. Monitor H&H. 2 units of PRBC transfusion was done on 09/16/2018. Monitor renal function and also monitor for any GI bleed. Hemodialysis as per schedule.. Prognosis is poor. Further recommendations based on the clinical course. Time with Patient: Greater than 30
--- NOTE | 2018-09-27 18:06 | P.PN ---
Subjective Progress Note Date: 09/19/18 Principal diagnosis: Massive pulmonary embolism Acute cardiopulmonary arrest status post CPR and intubation Patient is a 52-year-old male with a known history of chronic bilateral lower extremity lymphedema and history of pulmonary embolism about a year ago, currently not taking Coumadin for the past 6-8 months came to ER with complaints of acute worsening shortness of breath since yesterday. Patient says that he has been having shortness of breath for the last couple of weeks but suddenly got worse yesterday. Patient was told that his DVT and pulmonary embolus was secondary to sedentary lifestyle and sleeping in a sitting position. Patient states he took his Coumadin for about 6 months. He was so several follow-up appointment in November for repeat evaluation however he did not follow-up with that appointment. He stopped his Coumadin in November. Denies any constitutional symptoms. Patient feels much more short of breath with exertion. Chest pain. He feels as though both of his legs are much more edematous than usual suspicion is right lower extremity. Lower extremity duplex scan showed acute DVT right popliteal vein through the proximal calf veins CTA chest showed massive bilateral pulmonary embolism with right ventricular enlargement suggestive of right ventricular strain correlate clinically. A 7 mm and 4 mm right lower lobe pulmonary nodule not seen previous exam subpleural in location could be inflammatory. WBC 14.1 Troponin 0.258 Potassium 5.3 On 09/09/2018 Patient had a brief episode of cardiopulmonary arrest this morning and developed respiratory distress. Subsequently patient was intubated and was transferred to MICU. Patient had a difficult intubation. Patient was given TPA by ER physician. Patient also received multiple doses of epinephrine and sodium bicarbonate. Patient is currently on Levophed drip. Being continued on heparin drip as well. Patient is currently sedated. Initial ABG showed pH 7.0, pCO2 80, pO2 118 Patient was seen by cardiology and pulmonary. 09/10/2018 Patient is currently mechanically ventilated and sedated. Patient is being continued on heparin drip. Continues to be on Levothroid drip. Patient had SVT during cardiopulmonary arrest. Patient was started on amiodarone.. Otherwise hemoglobin dropped to 10.7 today. Continues to have bloody secretions which is being suctioned. Chest x-ray showed bilateral pleural effusion and consolidation. AST 559 and ALT 509 albumin 2.6. Cultures negative so far. Creatinine 1.76. 09/11/2018 52-year-old gentleman with a history of massive bilateral pulmonary embolism right ventricular enlargement and right heart strain. He did receive systemic TPA and was on IV heparin until yesterday which time was turned off because of ongoing bleeding. The patient's overall prognosis remains very guarded. The patient remains on ventilator. Arterial blood gases show a PaO2 of 113 PaCO2 38 and a pH of 7.4. The patient is on saline at 75 mL an hour; Heparin was discontinued yesterday because of ongoing bleeding from the cavity and NG tube. In addition, he's had about a 1 g hemoglobin drop on a daily basis. This morning's hemoglobin is 9.9. 09/12/2018; The patient's overall prognosis remains very guarded. The patient was given a daily interruption of sedation today but could not have a spontaneous breathing trial because he became very tachypnea with respiratory rates above 40. Currently, he is on the volume assist control mode rate of 32, tidal volume 500 , FiO2 35% to be increased to 40% and 5 of PEEP. Arterial blood gases showed a PaO2 of 59 a PaCO2 of 43 and a pH 7.37. That was on 35% FiO2. In addition, the patient's on norepinephrine at 7 mics per minute, propofol at 65 mcg/kg/m, saline IV at 75 mL an hour, heparin via weightbase protocol and vital 1.2 at goal. Chest x-ray shows bilateral effusions with basilar atelectasis and/or infiltrates. On 09/15/2018 Patient currently on mechanical ventilation with assist control and sedation. Patient is being continued on IV heparin. Hemoglobin is 7.5. Renal function slightly worsened with increasing creatinine level 3.56. No active bleeding noted. Chest x-ray showed bilateral pleural effusion and pulmonary vascular congestion. Patient was given a dose of Lasix previously. Patient is currently on antibiotics in the form of Zosyn. 09/16/2018 Patient was seen and examined in the MICU. Currently maintained on mechanical ventilator. Hemoglobin dropped to 5.9 today. 2 units of PRBC was ordered. No signs of active bleeding noted. Patient is being continued on IV heparin. Chest x-ray showed evidence of bilateral consolidation and pleural effusion. Correlate for pulmonary edema and diffuse pneumonia. Currently on Lasix drip. Creatinine level increased to 3.89 today. Otherwise patient is getting empiric antibiotics for possible pneumonia aspiration likely. Patient is being followed by pulmonary cardiology and nephrology. 09/17/2018 Patient is currently on mechanical ventilator. Chest x-ray showed possible fluid overload/pneumonia. Creatinine is trending up at 4.7 today. Hemoglobin is 7.6. Continued on IV heparin. held for permacath placement. Nephrology is planning for hemodialysis. No fever no chills. 09/18/2018 Patient is currently intubated and on mechanical ventilator. Permacath was placed in the right groin and was started on hemodialysis. He is able to open his eyes with verbal stimuli. Currently not following any other commands. Still is very lethargic and encephalopathic. Chest x-ray showed lower lobe infiltrates probably combination of pneumonia and fluid overload. Patient is being continued on Zosyn. Patient is also on Lasix drip and also Salas accident. Continue with IV heparin. Nephrology and pulmonary is following. Patient did have good urine output and also had 2 loose bowel movements yesterday.. 09/19/2018 Patient is currently on mechanical ventilator. Patient is off sedation. Patient is still encephalopathic. Chest x-ray showed some improvement in the infiltration and effusion. Patient is being continued on hemodialysis. Continue with antibiotics in the form of Zosyn. Cultures have been negative. Hemodialysis to be done again today. Nephrology and pulmonary is following. Hemoglobin is fairly stable. Continue with IV heparin. Active Medications Active Medications Generic Name Dose Route Start Last Admin Trade Name Freq PRN Reason Stop Dose Admin Albuterol/Ipratropium 3 ml 09/09/18 09:37 Duoneb 0.5 Mg-3 Mg/3 Ml Soln INHALATION RT-Q2H PRN Shortness Of Breath Or Wheezing Albuterol/Ipratropium 3 ml 09/09/18 12:00 09/20/18 23:21 Duoneb 0.5 Mg-3 Mg/3 Ml Soln INHALATION 3 ml RT-Q4H GIOVANNY Administration Amiodarone HCl 200 mg 09/20/18 21:00 09/20/18 22:29 Cordarone PO 200 mg BID GIOVANNY Administration Calcium Acetate 667 mg 09/17/18 07:30 09/20/18 17:14 Phoslo PO 667 mg TID-W/MEALS GIOVANNY Administration Chlorhexidine Gluconate 15 ml 09/09/18 21:00 09/20/18 22:29 Peridex MUCOUS MEM 15 ml BID GIOVANNY Administration Heparin Sodium (Porcine) 0 unit 09/08/18 10:49 09/09/18 04:34 Heparin IV 4,000 unit PER PROTOCOL PRN Administration Low PTT Protocol Hydralazine HCl 10 mg 09/18/18 21:19 09/20/18 04:53 Apresoline IVP 10 mg Q4HR PRN Administration Blood Pressure - High Hydralazine HCl 25 mg 09/20/18 09:30 09/20/18 22:29 Apresoline PO 25 mg QID [facility]NY Administration Hydromorphone HCl 1 mg 09/10/18 17:33 09/20/18 18:01 Dilaudid IVP 1 mg Q1HR PRN Administration Mild to Moderate Pain Hydromorphone HCl 2 mg 09/10/18 17:33 09/20/18 21:18 Dilaudid IVP 2 mg Q1HR PRN Administration Moderate to Severe Pain Heparin Sodium/Sodium Chloride 500 mls @ 45.95 mls/hr 09/08/18 11:00 11:50 25,000 unit/ Sodium Chloride IV 16 units/kg/hr .[id number] [facility] 49.35 mls/hr Administration Protocol 14.9 UNITS/KG/HR Propofol 1,000 mg/ IV Solution 100 mls @ 0 mls/hr 09/09/18 09:45 09/18/18 09: 02 IV 0 mcg/kg/min .Q0M [facility]NY 0 mls/hr Titration Protocol Titrate Norepinephrine Bitartrate 16 250 mls @ 0 mls/hr 09/09/18 10:00 09/15/18 14:40 mg/ Sodium Chloride IV 0 mcg/min .Q0M [facility] 0 mls/hr Titration Protocol Titrate Sodium Chloride 1,000 mls @ 20 mls/hr 09/10/18 12:45 09/20/18 22:31 Saline 0.9% IV 20 mls/hr .Q24H [facility] Administration Acetaminophen 1,000 mg/ IV 100 mls @ 400 mls/hr 09/13/18 20:44 09/13/18 21:55 Solution IVPB 400 mls/hr ONCE PRN Administration Fever>101 Piperacillin/Tazobactam/ 50 mls @ 12.5 mls/hr 09/14/18 10:00 09/20/18 18:01 Dextrose 3.375 gm/ IV Solution IVPB 12.5 mls/hr Q8H [facility] Administration Bumetanide 12 mg/ Dextrose/ 240 mls @ 10 mls/hr 09/18/18 10:30 09/20/18 09:56 Water IV 0.5 mg/hr .Q24H [facility] 10 mls/hr Administration 0.5 MG/HR Insulin Aspart 0 unit 09/10/18 06:00 09/20/18 18:08 Novolog SQ Not Given Q6HR [facility] Protocol Miscellaneous Information 1 each 09/10/18 16:16 Potassium Per Protocol MISCELLANE DAILY PRN Per Protocol Protocol Miscellaneous Information 1 each 09/10/18 22:11 Magnesium Per Protocol MISCELLANE DAILY PRN Per Protocol Protocol Multivitamins 1 each 09/09/18 12:00 09/20/18 11:49 Theragran PO 1 each DAILY@1200 [facility] Administration Naloxone HCl 0.2 mg 09/08/18 15:00 Narcan IV Q2M PRN Opioid Reversal Pantoprazole Sodium 40 mg 09/10/18 09:00 09/20/18 08:25 Protonix IVP 40 mg DAILY [facility]NY Administration Objective - Vital Signs Vital signs: Vital Signs Temp 97.9 F 09/19/18 16:00 Pulse 85 09/19/18 19:45 Resp 24 09/19/18 19:00 BP 119/65 09/16/18 14:03 Pulse Ox 96 09/19/18 19:00 Intake & Output 09/19/18 09/19/18 09/20/18 06:59 18:59 06:59 Intake Total 958 2200 50 Output Total 900 4820 50 Balance 58 -2620 0 Weight 157.4 kg Intake: IV 362 412 26 Piperacillin-Tazobactam 3 50 100 .375 gm In Dextrose/Water 1 50ml.bag @ 12.5 mls/hr IVPB Q8H [facility] Rx#: [id number] Pressure bag 72 72 6 Sodium Chloride 0.9% 1, 240 240 20 000 ml @ 20 mls/hr IV . Q24H [facility] Rx#:[id number] Intake, IV Titration 500 1272 Amount Bumetanide 12 mg In 272 Dextrose 5% in Water 192 ml @ 0.5 MG/HR 10 mls/hr IV .Q24H [facility] Rx#: [id number] Heparin Sod,Pork in 0.45% 500 1000 NaCl 25,000 unit In 0.45 % NaCl 1 500ml.bag @ 14.9 UNITS/KG/HR 45.95 mls/hr IV .[id number] [facility] Rx#: [id number] Tube Feeding 96 336 24 Other 180 Output: Urine 900 1120 50 Other 3700 Other: Voiding Method Indwelling Catheter Indwelling Catheter # Bowel Movements 1 ABP, PAP, CO, CI - Last Documented Arterial Blood Pressure 164/80 - Exam PHYSICAL EXAMINATION: Patient is lying in the bed comfortably, currently intubated HEENT: Normocephalic. Neck is supple. Pupils reactive. Nostrils clear. Oral cavity is moist. Ears reveal no drainage. Neck reveals no JVD, carotid bruits, or thyromegaly. CHEST EXAMINATION: Trachea is central. Symmetrical expansion. Bibasilar diminished air entry and crackles present. CARDIAC: Normal S1, S2 with no gallops. No murmurs ABDOMEN: Soft. Bowel sounds normal. No organomegaly. No abdominal bruits. Extremities: Bilateral lower extremity lymphedema with 3+ edema. No clubbing or cyanosis Neurologically . Patient is awake. Extremity week. Currently intubated. Skin: No rash or skin lesions except above. Psychiatric: Could not be assessed at this time. - Labs CBC & Chem 7: 09/27/18 04:35 09/27/18 04:35 Labs: Abnormal Lab Results - Last 24 Hours (Table) 09/18/18 09/19/18 09/19/18 Range/Units 23:53 05:00 05:00 WBC 29.8 H (3.8-10.6) k/uL RBC 3.13 L (4.30-5.90) m/uL Hgb 9.3 L (13.0-17.5) gm/dL Hct 28.8 L (39.0-53.0) % RDW 16.4 H (11.5-15.5) % Plt Count 481 H (150-450) k/uL Neutrophils # (Manual) 26.20 H (1.3-7.7) k/uL Monocytes # (Manual) 1.19 H (0-1.0) k/uL Myelocytes # (Manual) 0.89 H (0) k/uL APTT (22.0-30.0) sec ABG pH (7.35-7.45) ABG Total CO2 (19-24) mmol/L Potassium 3.3 L (3.5-5.1) mmol/L BUN 84 H (9-20) mg/dL Creatinine 4.56 H (0.66-1.25) mg/dL Glucose 109 H (74-99) mg/dL POC Glucose (mg/dL) 111 H (75-99) mg/dL Phosphorus 7.9 H (2.5-4.5) mg/dL Magnesium 2.9 H (1.6-2.3) mg/dL 09/19/18 09/19/18 09/19/18 Range/Units 05:00 05:20 05:58 WBC (3.8-10.6) k/uL RBC (4.30-5.90) m/uL Hgb (13.0-17.5) gm/dL Hct (39.0-53.0) % RDW (11.5-15.5) % Plt Count (150-450) k/uL Neutrophils # (Manual) (1.3-7.7) k/uL Monocytes # (Manual) (0-1.0) k/uL Myelocytes # (Manual) (0) k/uL APTT 67.1 H (22.0-30.0) sec ABG pH 7.34 L (7.35-7.45) ABG Total CO2 25 H (19-24) mmol/L Potassium (3.5-5.1) mmol/L BUN (9-20) mg/dL Creatinine (0.66-1.25) mg/dL Glucose (74-99) mg/dL POC Glucose (mg/dL) 110 H (75-99) mg/dL Phosphorus (2.5-4.5) mg/dL Magnesium (1.6-2.3) mg/dL 09/19/18 09/19/18 Range/Units 12:20 17:29 WBC (3.8-10.6) k/uL RBC (4.30-5.90) m/uL Hgb (13.0-17.5) gm/dL Hct (39.0-53.0) % RDW (11.5-15.5) % Plt Count (150-450) k/uL Neutrophils # (Manual) (1.3-7.7) k/uL Monocytes # (Manual) (0-1.0) k/uL Myelocytes # (Manual) (0) k/uL APTT (22.0-30.0) sec ABG pH (7.35-7.45) ABG Total CO2 (19-24) mmol/L Potassium (3.5-5.1) mmol/L BUN (9-20) mg/dL Creatinine (0.66-1.25) mg/dL Glucose (74-99) mg/dL POC Glucose (mg/dL) 106 H 112 H (75-99) mg/dL Phosphorus (2.5-4.5) mg/dL Magnesium (1.6-2.3) mg/dL Assessment and Plan Assessment: Acute cardiopulmonary arrest likely due to pulmonary embolism. Status post CPR and spontaneous return of circulation. Currently on mechanical ventilator. Acute hypercapnic respiratory failure. Currently on mechanical ventilator Massive pulmonary embolism with right ventricular strain. Patient was given TPA during CPR Acute hypotension . Was on on pressor support. 2-D echocardiogram showed normal LV function Pulmonary edema Possible right lower lobe pneumonia Nonoliguric acute kidney injury due to ATN. Started on hemodialysis during this admission. Acute on chronic anemia. Possible acute blood loss anemia Elevated troponin level secondary to right ventricular strain Acute lower extremity DVT Family history of pulmonary embolism in his brother Mild hyperkalemia 5.3 Recent history of pulmonary embolism about a year ago. Stopped taking Coumadin since November 2017 Previous history of smoking Bilateral lower extremity chronic lymphedema Morbid obesity with BMI 43.7 Seborrheic dermatitis history Anxiety Plan: Patient will be continued on IV heparin and monitor closely in the MICU. Patient was given TPA. Patient is off pressor support. Continue with IV diuresis Cardiology and pulmonary is following. Continue with mechanical ventilation. Monitor H&H. 2 units of PRBC transfusion was done on 09/16/2018. Monitor renal function and also monitor for any GI bleed. Hemodialysis as per schedule.. Prognosis is poor. Further recommendations based on the clinical course. Time with Patient: Greater than 30
[2018-09-27 18:20] LABS: Glucose,Whole Blood 122 mg/dL (75-99)
[2018-09-28 00:04] LABS: Glucose,Whole Blood 115 mg/dL (75-99)
[2018-09-28] MEDS: INSULIN ASPART 100 UNIT/ML 1 ML 10 ML VIAL SQ SCH ×4 (00:29→18:24)
[2018-09-28] MEDS: LORazepam 2 MG/ML INJ IV PRN ×2 (00:29→17:29)
--- NOTE | 2018-09-28 00:45 | P.PN ---
Subjective Progress Note Date: 09/27/18 This patient is seen on neurologic rounds today in the intensive care unit. The patient is showing slight improvement in his degree of alertness. As noted he is status post tracheostomy and PEG tube placement a few days ago. He is tolerating his tube feedings. His creatinine is somewhat worse today as compared to yesterday and nephrology is following him. Family is to have a meeting on Friday to discuss ongoing treatment for the patient including his hemodialysis. Patient is currently on CPAP at night and seems to be tolerating this fairly well. He underwent a routine EEG yesterday which was reviewed and reveals severe slowing with a background of 5 Hz. No epileptiform discharges were seen. These findings are consistent with a severe hypoxic/anoxic encephalopathy following cardiopulmonary arrest. He is being considered for possible discharge to select specialty next week. The patient does appear to be more awake and alert today as compared to yesterday. ICU nursing staff also feel he is showing improvement in his overall mental status. His serum creatinine today is 4.34. Plans are for close monitoring of his laboratory test results tomorrow to hopefully avoid hemodialysis treatment for him. According to the ICU nursing staff the patient is awaiting transferred to select specialty hopefully tomorrow if bed is available. As noted the patient has evidence of a diffuse metabolic encephalopathy which remains stable today. We will continue close neurological follow-up for the patient during this admission. His overall prognosis at this time remains very guarded. Objective - Vital Signs Vital signs: Vital Signs Temp 97.9 F 09/27/18 20:00 Pulse 92 09/27/18 22:00 Resp 16 09/27/18 22:00 BP 153/93 09/27/18 22:00 Pulse Ox 95 09/27/18 22:00 Intake & Output 09/27/18 09/27/18 09/28/18 06:59 18:59 06:59 Intake Total 1204 560 Output Total 1502 675 Balance -298 -115 Intake: IV 296 215 Piperacillin-Tazobactam 3 100 100 .375 gm In Sodium Chloride 0.9% 100 ml @ 25 mls/hr IVPB Q8H [facility] Rx#: [id number] Pressure bag 36 15 Sodium Chloride 0.9% 1, 160 100 000 ml @ 20 mls/hr IV . Q24H [facility] Rx#:[id number] Intake, IV Titration 100 Amount Potassium Chloride 20 meq 100 In Water For Injection 1 100ml.bag @ 50 mls/hr IVPB Q2HR [facility] Rx#: [id number] Tube Feeding 588 245 Other 220 100 Output: Urine 1500 675 Stool 2 Other: Voiding Method Indwelling Catheter ABP, PAP, CO, CI - Last Documented Arterial Blood Pressure 130/68 - Exam Physical Examination: PHYSICAL EXAMINATION: Patient is resting comfortably in bed. VITAL SIGNS: Blood pressure is [153/93]. Heart rate is [92]. Respiration is [16] . Temperature is [97.9]. HEENT: Head is atraumatic, neck is supple, there were no carotid bruits. CHEST: Lungs are clear to auscultation and percussion. CARDIAC: S1, S2 normal rate and rhythm. There is no murmur. ABDOMEN: Soft and nontender. Bowel sounds are present. EXTREMITIES: There is no pedal edema. Peripheral pulses are present. Neurological examination: Patient's neurological examination is unchanged from yesterday. He remains status post tracheostomy and PEG tube placement in the intensive care unit. He is showing slight improvement in his mental status today. He is awaiting possible transferred to select specialty early next week. There is been no significant change or improvement in his overall neurological status. - Labs CBC & Chem 7: 09/27/18 04:35 09/27/18 04:35 Labs: Abnormal Lab Results - Last 24 Hours (Table) 09/27/18 09/27/18 09/27/18 Range/Units 04:35 04:35 06:18 RBC 3.48 L (4.30-5.90) m/uL Hgb 10.3 L (13.0-17.5) gm/dL Hct 33.3 L (39.0-53.0) % MCHC 30.8 L (31.0-37.0) g/dL RDW 15.9 H (11.5-15.5) % Sodium 148 H (137-145) mmol/L Carbon Dioxide 32 H (22-30) mmol/L BUN 91 H (9-20) mg/dL Creatinine 4.34 H (0.66-1.25) mg/dL Glucose 135 H (74-99) mg/dL POC Glucose (mg/dL) 136 H (75-99) mg/dL Phosphorus 5.2 H (2.5-4.5) mg/dL Magnesium 2.6 H (1.6-2.3) mg/dL 09/27/18 09/27/18 Range/Units 13:00 18:09 RBC (4.30-5.90) m/uL Hgb (13.0-17.5) gm/dL Hct (39.0-53.0) % MCHC (31.0-37.0) g/dL RDW (11.5-15.5) % Sodium (137-145) mmol/L Carbon Dioxide (22-30) mmol/L BUN (9-20) mg/dL Creatinine (0.66-1.25) mg/dL Glucose (74-99) mg/dL POC Glucose (mg/dL) 114 H 122 H (75-99) mg/dL Phosphorus (2.5-4.5) mg/dL Magnesium (1.6-2.3) mg/dL Assessment and Plan (1) Acute metabolic encephalopathy Current Visit: Yes Status: Acute Code(s): G93.41 - METABOLIC ENCEPHALOPATHY SNOMED Code(s): 76871625 (2) Pulmonary embolism Current Visit: Yes Status: Acute Code(s): I26.99 - OTHER PULMONARY EMBOLISM WITHOUT ACUTE COR PULMONALE SNOMED Code(s): 56873418 (3) Congestive heart failure (CHF) Current Visit: No Status: Acute Code(s): I50.9 - HEART FAILURE, UNSPECIFIED SNOMED Code(s): 29327194 (4) DVT (deep venous thrombosis) Current Visit: No Status: Acute Code(s): I82.409 - ACUTE EMBOLISM AND THOMBOS UNSP DEEP VN UNSP LOWER EXTREMITY SNOMED Code(s): 161923206 (5) Obesity Current Visit: No Status: Acute Code(s): E66.9 - OBESITY, UNSPECIFIED SNOMED Code(s): 969733305 Plan: This patient is a 52-year-old male status post bilateral pulmonary embolism with cardiopulmonary arrest. Patient was initially intubated and then extubated with tracheostomy and PEG tube placement. He has remained very lethargic since extubation. He is showing slight improvement today in terms of his mental status and he does seem to follow simple commands. He is being followed by multiple specialists. His routine EEG which was recently performed reveals severe slowing consistent with a hypoxic/anoxic encephalopathy. His overall prognosis at this time remains very guarded. We will continue to follow his progress closely in the intensive care unit. Primary care physicians are working on possible discharge to select specialty early next week. His overall prognosis at this time remains very guarded. We will continue to follow him closely in the intensive care unit. We will reassess him tomorrow to see if he continues to show slight improvement. His serum creatinine today is 4.34. BUN is 91. His laboratory testing for C. difficile came back negative. Patient is being considered for possible transfer to select specialty possibly tomorrow. We will need to wait to see if he may require hemodialysis but this hopefully will continue to show improvement daily. Once again his overall prognosis at this time remains very guarded.
[2018-09-28] MEDS: PIPERACILLIN-TAZOBACTAM 3.375 GM in SODIUM CHLORIDE 0.9% 100 ML IVPB SCH (02:04)
[2018-09-28] MEDS: BUMETANIDE 0.25 MG/ML 4 ML VIAL IVP SCH (02:05)
[2018-09-28] MEDS: HYDROmorphone 1 MG/ML 1 ML SYRINGE IVP PRN (02:05)
[2018-09-28] MEDS: IPRATROPIUM-ALBUTEROL 3 ML NEB INHALATION SCH ×5 (03:25→20:15)
[2018-09-28 05:17] LABS: ABG Base Excess 8.1 mmol/L; ABG HCO3 33 mmol/L (21-25); ABG Oxygen Saturation 97.7 % (94-97); ABG PCO2 54 mmHg (35-45); ABG PH 7.39 (7.35-7.45); ABG PO2 111 mmHg (83-108); ABG TCO2 35 mmol/L (19-24)
[2018-09-28 05:38] LABS: Anisocytosis Slight; Basophils # (A) 0.1 k/uL (0-0.2); Basophils % (A) 1 %; Eosinophils # (A) 0.4 k/uL (0-0.7); Eosinophils % (A) 4 %; HCT 33.9 % (39.0-53.0); HGB 10.3 gm/dL (13.0-17.5); Hypochromasia Moderate; Lymphocytes # (A) 1.3 k/uL (1.0-4.8); Lymphocytes % (A) 15 %; MCH 29.3 pg (25.0-35.0); MCHC 30.3 g/dL (31.0-37.0); MCV 96.7 fL (80.0-100.0); Mean Platelet Volume 7.2; Monocytes # (A) 0.7 k/uL (0-1.0); Monocytes % (A) 8 %; Neutrophils # (A) 6.3 k/uL (1.3-7.7); Neutrophils % (A) 69 %; Platelet Count 402 k/uL (150-450)
[2018-09-28 05:59] LABS: Calcium 10.1 mg/dL (8.4-10.2); Magnesium 2.6 mg/dL (1.6-2.3); Phosphorus 5.1 mg/dL (2.5-4.5); Potassium 3.9 mmol/L (3.5-5.1)
[2018-09-28 06:13] LABS: Glucose,Whole Blood 117 mg/dL (75-99)
--- NOTE | 2018-09-28 08:09 | PN ---
PROGRESS NOTE Mr. Rowley is a 52-year-old male who presented with massive bilateral pulmonary embolism with respiratory failure. He is remains intubated. He has a tracheostomy, but has been able to tolerate trach collar on and off. Hemodynamically he is stable. He is in sinus mechanism. He is awake and alert, following commands, but continues to be quite weak. He has no evidence of ventricular ectopic activity or atrial arrhythmia. He continues to be on amiodarone 200 mg daily, Bumex 1 mg IV q.8 hours, hydralazine 50 mg 3 times a day, metoprolol tartrate 50 mg 3 times a day and Xarelto 15 mg twice a day. PHYSICAL EXAMINATION: Blood pressure is running in the one teens to 140s with the heart rate in the 90s. LUNGS: Clear to auscultation anteriorly. HEART: Regular rate and rhythm. S1, S2. No S3. No rub. ABDOMEN: Soft, obese, nontender. EXTREMITIES: +1 edema. NEUROLOGICALLY: He is stable, following commands. LAB DATA: Lab data revealed BUN and creatinine 95 and 4.19, potassium 3.9. Hemoglobin of 10.3. IMPRESSION: 1. Status post massive bilateral pulmonary embolism with respiratory failure. 2. Status post tracheostomy. 3. Episode of atrial arrhythmia during the event, resolved. 4. Acute renal injury, stabilizing. 5. Morbid obesity. 6. Hypertension. RECOMMENDATION: From the cardiac standpoint, I will stop the amiodarone at this time. Continue rest of his medical regimen. The plan is to transfer him to [facility] setting for long- term weaning. Depending on his blood pressure, adjustment of his antihypertensive regimen can be initiated. MMODL / IJN: [id number] /
[2018-09-28] MEDS: CALCIUM ACETATE 667 MG CAP PO SCH ×3 (08:44→17:29)
[2018-09-28] MEDS: METOPROLOL TARTRATE 50 MG TAB PO SCH ×3 (08:44→22:59)
[2018-09-28] MEDS: PANTOPRAZOLE 40 MG/10 ML VIAL IVP SCH (08:44)
[2018-09-28] MEDS: CHLORHEXIDINE GLUCONATE 15 ML CUP MUCOUS MEM SCH ×2 (08:44→20:15)
[2018-09-28] MEDS: hydrALAZINE HCL 50 MG TAB PO SCH ×3 (08:44→22:59)
[2018-09-28] MEDS: RIVAROXABAN 15 MG TAB PO SCH ×2 (08:51→17:29)
--- NOTE | 2018-09-28 09:24 | P.PN ---
Subjective Progress Note Date: 09/28/18 Principal diagnosis: Respiratory failure, massive bilateral pulmonary embolism Progress note dated 09/10/2018 52-year-old male who presented to the emergency department with massive bilateral pulmonary embolism, right ventricular enlargement and right heart strain. The patient was started on IV heparin and admitted to the general medical floor. The patient subsequently had a cardiac arrest and was transferred to the intensive care unit we had a prolonged cardiopulmonary arrest with prolonged cardiopulmonary resuscitation and eventual return of spontaneous circulation. The patient was given systemic TPA by the ER physician at the bedside. Lines were placed yesterday by myself my nurse practitioner. The patient remains on IV heparin. The patient's overall situation is poor. In addition to prolonged resuscitation, the patient had the massive bilateral pulmonary embolism. We attempted to see whether or not our interventional colleagues would be willing to do EKOS on this patient but his instability in the fact that he receive systemic TPA precluded that. He in addition has a previous history of DVT and pulmonary most him was treated with blood thinners for 6 months he has an acute DVT of the right lower extremity on this admission morbid obesity previous history of tobacco use and sedentary lifestyle anxiety and previous cholecystectomy and hernia repair. His overall prognosis at this point is poor. He remains on the mechanical ventilator on the volume assist control mode with a rate of 32 tidal volume 500 FiO2 40% PEEP of 5. Arterial blood gases on the same settings except 60% show a PaO2 of 222 PaCO2 of 36 and a pH of 7.45. He is on propofol at 45 mics per kilogram per minute, norepinephrine at 20 mics per minute heparin via weightbase protocol a saline IV at 75 mL an hour and amiodarone at 1 mg/m. In addition, yesterday should change, the patient apparently had an episode of supraventricular tachycardia cardioversion was attempted an adenosine was given. More recently, at 07 10 this morning, again with an episode of SVT, adenosine was given which seemed to help in the cardiology started the patient on amiodarone. Chest x- ray is consistent with fluid overload. Again prognosis is poor this point. We will attempt to talk to the family sometime today. Progress note dated 09/11/2018 52-year-old gentleman with a history of massive bilateral pulmonary embolism right ventricular enlargement and right heart strain. The patient's hospital course has been very abdulaziz at best. He did receive systemic TPA and was on IV heparin until yesterday which time was turned off because of ongoing bleeding. The patient's overall prognosis remains very guarded. The patient remains on the volume assist control mode rate of 32, tidal volume of 500, FiO2 40% and a PEEP of 5. Arterial blood gases show a PaO2 of 113 PaCO2 38 and a pH of 7.4. The patient is on saline at 75 mL an hour, propofol 65 mics per kilogram per minute, no epinephrine at 22 mcg/m, amiodarone 0.5 mg/m and vital AF at 37 with a goal of 37 mL an hour. Heparin was discontinued yesterday because of ongoing bleeding from the cavity and NG tube. In addition, he's had about a 1 g hemoglobin drop on a daily basis. This morning's hemoglobin is 9.9. I did have a chance to speak in detail yesterday to the daughter. The patient is currently unmarried. There are not many family members. The patient does have a previous history of DVT and pulmonary most him and apparently was treated for some period of time with blood thinners. Progress note dated 09/12/2018. 52-year-old gentleman with a history of massive bilateral pulmonary embolism, right ventricular enlargement and right heart strain. The patient's hospital course has been very abdulaziz. He did have prolonged episode of cardiopulmonary resuscitation. She did receive systemic TPA and was on IV heparin which had to be stopped yesterday and then resumed last night again. This is because of ongoing bleeding and dropping hemoglobin. The patient's overall prognosis remains very guarded. The patient was given a daily interruption of sedation today but could not have a spontaneous breathing trial because he became very tachypnea with respiratory rates above 40. Currently, he is on the volume assist control mode rate of 32, tidal volume 500, FiO2 35% to be increased to 40 % and 5 of PEEP. Arterial blood gases showed a PaO2 of 59 a PaCO2 of 43 and a pH 7.37. That was on 35% FiO2. In addition, the patient's on norepinephrine at 7 mics per minute, propofol at 65 mcg/kg/m, saline IV at 75 mL an hour, heparin via weightbase protocol and vital 1.2 at goal. Chest x-ray shows bilateral effusions with basilar atelectasis and/or infiltrates. I had asked the respiratory therapist put the patient on PSV 8 CPAP of 5 after he was fully awake but we never got. Given his profound tachypnea off of sedation. I talked to his daughter extensively 2 days ago. She was not here yesterday when I was here. Progress note dated 09/13/2018 52-year-old male with a history of massive bilateral pulmonary embolism, right ventricular enlargement, and right heart strain. The patient's hospital course has been very abdulaziz beginning with initial admission to general medical floor on IV heparin only. The patient then had a cardiopulmonary arrest and had a prolonged period of cardiopulmonary resuscitation with eventual return of spontaneous circulation. A groin IV was placed by the ER physician and systemic TPA was given. At that point, though we tried to send the patient for EKOS, the systemic TPA in the patient's instability precluded that. Currently, the patient remains on the mechanical ventilator on the volume assist control mode rate of 32, tidal volume 500, FiO2 50% and PEEP of 5. Arterial blood gases show a PaO2 of 70 for a PaCO2 of 44 and a pH is 7.36. The patient remains on norepinephrine at 4 mcg/m, heparin via weightbase protocol, a saline IV at 75 mL an hour to be dropped down to 25 mL an hour and vital AF at 37 with a goal of 37 mL per hour. In addition, I've asked the nurses to neck movement of the ports of the triple-lumen catheter so that we can monitor central venous pressure. The patient is placed on some Ancef empirically at 1 g every 8 hours. The patient will also receive Lasix 40 mg IV push for chest x-ray which shows bilateral fluid overload. Microbiologic studies are currently all negative. Chest x-ray, labs and medications are all reviewed. This patient also has a previous history of DVT and pulmonary embolism. There also may be an occult hypercoagulable state yet to be detected. Progress note dated 10/23/2018 52-year-old male with a history of massive bilateral pulmonary embolism, right ventricular enlargement, and right heart strain. I saw the patient when he first was admitted to the hospital. The patient received systemic TPA at that time but should have likely received EKOS. Currently, the patient has made improvement though. He did have a tracheostomy and PEG tube placement done on September 23 for failure to wean from mechanical ventilation. He still on the mechanical ventilator on the pressure support mode with a pressure of 8 cm, and CPAP of 5, and 40%. He's been on those settings since 0800 on September 27. The patient has blood gases showing a PaO2 of 111 a PaCO2 of 54 and a pH of 7.39. He's had a saline IV running at 20 mL an hour and tube feeds at 49 with a goal of 49 mL an hour. His chest x-ray shows left lower lobe atelectasis and collapse. There is a small effusion. There is a tracheostomy tube. The patient is awake and alert. He apparently is going to be transferred to one of the specialized nursing facilities later today or tomorrow. It is a long-term acute care facility. Objective - Vital Signs Vital signs: Vital Signs Temp 98.5 F 09/28/18 08:00 Pulse 106 H 09/28/18 09:00 Resp 14 09/28/18 09:00 BP 160/91 09/28/18 09:00 Pulse Ox 99 09/28/18 09:00 Intake & Output 09/27/18 09/28/18 09/28/18 18:59 06:59 18:59 Intake Total 1204 1511 177 Output Total 1502 1548 210 Balance -298 -37 -33 Weight 135.8 kg Intake: IV 296 476 79 Piperacillin-Tazobactam 3 100 200 .375 gm In Sodium Chloride 0.9% 100 ml @ 25 mls/hr IVPB Q8H [facility] Rx#: [id number] Pressure bag 36 36 9 Sodium Chloride 0.9% 1, 160 240 70 000 ml @ 20 mls/hr IV . Q24H [facility] Rx#:[id number] Intake, IV Titration 100 Amount Potassium Chloride 20 meq 100 In Water For Injection 1 100ml.bag @ 50 mls/hr IVPB Q2HR [facility] Rx#: [id number] Tube Feeding 588 735 98 Other 220 300 Output: Urine 1500 1545 210 Stool 2 3 Other: Voiding Method Indwelling Catheter Indwelling Catheter ABP, PAP, CO, CI - Last Documented Arterial Blood Pressure 130/68 - Exam No acute distress, awake, with a midline tracheostomy tube. HEENT examination is grossly unremarkable. Mucous membranes are moist. Neck supple. Full range of motion. No adenopathy thyromegaly or neck vein distention. Cardiovascular examination reveals regular rhythm rate. S1-S2 normal. No S3 or S4. No discernible murmur noted. Heart sounds are distant. Heart rate is 80 bpm. Lungs reveal coarse bilateral breath sounds. Crackles are noted bilaterally in our bit worse today. Diffuse rhonchi are appreciated. No wheezes. Breath sounds are diminished throughout. Breath sounds are equal bilaterally. Abdomen is obese. Bowel sounds are noted. No masses appreciated. PEG tube is noted. Extremities. There is some chronic venous stasis changes. There is some pitting. Skin is reveal some chronic venous stasis changes. Neurologic examination is limited but appears to be relatively normal. - Labs CBC & Chem 7: 09/28/18 04:50 09/28/18 04:50 Labs: Abnormal Lab Results - Last 24 Hours (Table) 09/27/18 09/27/18 09/27/18 Range/Units 13:00 18:09 23:52 RBC (4.30-5.90) m/uL Hgb (13.0-17.5) gm/dL Hct (39.0-53.0) % MCHC (31.0-37.0) g/dL RDW (11.5-15.5) % ABG pCO2 (35-45) mmHg ABG pO2 (83-108) mmHg ABG HCO3 (21-25) mmol/L ABG Total CO2 (19-24) mmol/L ABG O2 Saturation (94-97) % Sodium (137-145) mmol/L Chloride (98-107) mmol/L Carbon Dioxide (22-30) mmol/L BUN (9-20) mg/dL Creatinine (0.66-1.25) mg/dL Glucose (74-99) mg/dL POC Glucose (mg/dL) 114 H 122 H 115 H (75-99) mg/dL Phosphorus (2.5-4.5) mg/dL Magnesium (1.6-2.3) mg/dL 09/28/18 09/28/18 09/28/18 Range/Units 04:50 04:50 05:11 RBC 3.50 L (4.30-5.90) m/uL Hgb 10.3 L (13.0-17.5) gm/dL Hct 33.9 L (39.0-53.0) % MCHC 30.3 L (31.0-37.0) g/dL RDW 16.0 H (11.5-15.5) % ABG pCO2 54 H (35-45) mmHg ABG pO2 111 H (83-108) mmHg ABG HCO3 33 H (21-25) mmol/L ABG Total CO2 35 H (19-24) mmol/L ABG O2 Saturation 97.7 H (94-97) % Sodium 152 H (137-145) mmol/L Chloride 111 H (98-107) mmol/L Carbon Dioxide 33 H (22-30) mmol/L BUN 95 H (9-20) mg/dL Creatinine 4.19 H (0.66-1.25) mg/dL Glucose 134 H (74-99) mg/dL POC Glucose (mg/dL) (75-99) mg/dL Phosphorus 5.1 H (2.5-4.5) mg/dL Magnesium 2.6 H (1.6-2.3) mg/dL 09/28/18 Range/Units 06:02 RBC (4.30-5.90) m/uL Hgb (13.0-17.5) gm/dL Hct (39.0-53.0) % MCHC (31.0-37.0) g/dL RDW (11.5-15.5) % ABG pCO2 (35-45) mmHg ABG pO2 (83-108) mmHg ABG HCO3 (21-25) mmol/L ABG Total CO2 (19-24) mmol/L ABG O2 Saturation (94-97) % Sodium (137-145) mmol/L Chloride (98-107) mmol/L Carbon Dioxide (22-30) mmol/L BUN (9-20) mg/dL Creatinine (0.66-1.25) mg/dL Glucose (74-99) mg/dL POC Glucose (mg/dL) 117 H (75-99) mg/dL Phosphorus (2.5-4.5) mg/dL Magnesium (1.6-2.3) mg/dL Assessment and Plan Assessment: Assessment Acute hypoxemic respiratory failure, requiring intubation and mechanical ventilation, secondary to bilateral massive pulmonary embolism. Massive pulmonary embolism with evidence of right heart strain and acute dilatation of the right ventricle subsequent cardiopulmonary arrest prolonged cardiopulmonary resuscitation and eventual return of spontaneous circulation, patient intubated on September 09 during the resuscitation. Prolonged cardiopulmonary arrest with prolonged cardiopulmonary resuscitation but with eventual return of spontaneous ventilation, rule out anoxic brain injury Status post tracheostomy and PEG tube placement on September 23 Previous history of DVT and pulmonary embolism, treated with 6 months of warfarin History of GI bleed, currently stable Acute DVT, right lower extremity Systemic administration of TPA on this admission Morbid obesity. Previous history of tobacco use History of anxiety Status post cholecystectomy and hernia repair Plan: Plan dated 09/09/2018 After a prolonged resuscitation and difficult intubation, the patient was eventually transferred back up to the ICU. The patient will be placed on the mechanical ventilator with settings of tidal volume 500, 100%, PEEP of 5, and rate of 24 breaths per minute. We'll place him on the volume assist control mode. We'll see if we can't place lines in the patient. The right groin line is probably a dirty line. He did receive systemic TPA. White count is 12.6, hemoglobin 15.4, hematocrit 48.3 and platelet count 279,000. PTT was 46.6. Sodium 139 potassium 4.6 chloride 109 CO2 22 BUN and creatinine were 12 and 0.99. Troponin was 0.258. Chest x-ray, labs, medications, computed tomography scan, and Doppler of lower extremity are reviewed. Medications are reviewed. Prognosis is guarded. Critical care time 40 minutes Plan dated 09/10/2018 Currently, the patient is on the assist control mode. Blood gases have been evaluated. FiO2 dropped from 60 down to 40%. The patient remains on propofol, norepinephrine, IV heparin, and IV amiodarone. His overall prognosis remains very poor. White count is 15 hemoglobin 12.7 hematocrit 38.8 and platelet count 288,000. PT 13.3 INR 1.4 and PTT 87.1. Sodium and potassium are normal. Chloride 108 CO2 25 BUN and creatinine were 21 and 1.76. AST was 559 8 hours T was 506 and albumin was 2.6. Microbiologic studies remain negative. Chest x- ray labs and medications are all reviewed. Additional recommendations and suggestions are forthcoming. Medications will be reviewed. Critical care time 38 minutes Plan Dated 09/11/2018 White Count Is 12.9, Hemoglobin down to 9.9, Hematocrit 30.2 and Platelet Count 236,000. Arterial Blood Gases Show a PaO2 of 113 a PaCO2 of 38 and a pH of 7.44. The FiO2 Can Be Dropped down to 35%. Sodium Is 136, Potassium 3.5, Chloride 107 and CO2 Is 26 BUN/creatinine Were 16 and 1.77 Respectively. Thus Far, Microbiologic Studies Are Negative. Chest X-Ray Shows Bilateral Pleural Effusions, Cardiomegaly, and Some Basilar Atelectasis or Infiltrate. Labs Medications and X-Rays Are All Reviewed. Prognosis Remains Very Guarded. I Did Have a Chance to Speak in Detail to the Daughter Yesterday. She Understands the [place] of the Situation. We Will Continue to Follow. Critical Care time is 33 minutes Plan dated 09/12/2018 We did try a daily interruption of sedation but when the sedation was turned off , the patient became very tachypnea and dyspneic. His respiratory rates were more than 45 rest permitted. Hence, a spontaneous breathing trial was not attempted. Chest x-ray is evaluated. Microbiologic studies are negative thus far. White count is 14, hemoglobin 9.4, hematocrit 27.2 and platelet count 197, 000. PT was 10.6 INR 1.1 and PTT 49.1. Sodium was 136 potassium 4.1 chloride 107 CO2 23 BUN 15 creatinine 1.68. Labs, x-rays and medications are all reviewed. Prognosis remains poor. The patient's IV amiodarone has been converted to oral amiodarone at 400 mg twice a day. The FiO2 was increased from 35 to 40% given the borderline PaO2. Critical care time 35 minutes Plan dated 09/13/2018 The patient will have his IV dropped from 75 mL an hour to 20 mL an hour. We' ll continue with tube feeding. We'll continue with the heparin but continue to watch the hemoglobin very carefully. The norepinephrine has been slowly weaned down. We will do a daily interruption of sedation. Yesterday, he was not a candidate for spontaneous breathing trial. We will cut one of the 3 ports of the central venous catheter for CVP monitoring. We'll give the patient Ancef 1 g every 8 hours empirically. Finally, we'll give the patient Lasix 40 mg IV push. Labs, x-rays a medications are all reviewed. I again spoke to the family yesterday. They understand his prognosis is very guarded. White count is 8.9, hemoglobin 8.2 and hematocrit 25.5 with a normal platelet count. PTT is 63.7. Sodium and potassium are normal. Chloride is 111 CO2 14 anion gap is 16 and BUN and creatinine were 15 and 1.76. Critical care time 35 minutes Plan dated 09/28/2018 Currently, the patient's arterial blood gases are stable. He is currently on pressure support ventilation of 8 and CPAP of 5 and 40% FiO2. White count is 9.0, hemoglobin 10.3, hematocrit 33.9 and platelet count 402,000. Sodium is 152 potassium 3.9 chloride is 111 CO2 33 BUN and currently 95 and 4.19. I will switch the saline IV to D5 W. If not already receiving water flushes he'll need them. He is getting tube feeds of 49 mL an hour with a goal of 49 mL an hour. Currently he is receiving Bumex 1 mg every 8. We'll confirm with nephrology about ongoing need of hemodialysis. Medications are reviewed. Microbiology is negative. Additional recommendations and suggestions are forthcoming. Prognosis remains guarded. Additional recommendations and suggestions are forthcoming. Critical care time is 33 minutes Time with Patient: Greater than 30
--- NOTE | 2018-09-28 10:42 | XR ---
EXAMINATION TYPE: XR chest 1V portable DATE OF EXAM: 09/28/2018 COMPARISON: Prior chest x-ray 09/27/2018 HISTORY: Abnormal chest x-ray TECHNIQUE: Single frontal view of the chest is obtained. FINDINGS: Tracheostomy tube is overlying appropriate position. Left jugular central venous catheter shows the distal tip overlying the cavoatrial junction. There is no evident pneumothorax. Basilar inc reased density persists, there may be some slight interval improved visualization of the left hemidia phragm. Interstitium and central vascularity, perihilar airspace disease thought to be improved. Ther e are overlying cardiac leads. IMPRESSION: Improvement in volume status, aeration
[2018-09-28] MEDS ORDERED: DEXTROSE 5% IN WATER 1,000 ML IV ONE (11:45)
[2018-09-28] MEDS ORDERED: BUMETANIDE 0.25 MG/ML 4 ML VIAL IVP SCH (11:46)
[2018-09-28 12:13] LABS: Glucose,Whole Blood 124 mg/dL (75-99)
[2018-09-28] MEDS: MULTIVITAMINS, THERA 1 EACH TAB PO SCH (12:13)
--- NOTE | 2018-09-28 13:33 | P.PN ---
Subjective 52-year-old male with a known history of chronic bilateral lower extremity lymphedema and history of pulmonary embolism about a year ago, currently not taking Coumadin for the past 6-8 months came to ER with complaints of acute worsening shortness of breath since yesterday. Patient says that he has been having shortness of breath for the last couple of weeks but suddenly got worse yesterday. Patient was told that his DVT and pulmonary embolus was secondary to sedentary lifestyle and sleeping in a sitting position. Patient states he took his Coumadin for about 6 months. He was so several follow-up appointment in November for repeat evaluation however he did not follow-up with that appointment. He stopped his Coumadin in November. Denies any constitutional symptoms. Patient feels much more short of breath with exertion. Chest pain. He feels as though both of his legs are much more edematous than usual suspicion is right lower extremity. Lower extremity duplex scan showed acute DVT right popliteal vein through the proximal calf veins CTA chest showed massive bilateral pulmonary embolism with right ventricular enlargement suggestive of right ventricular strain correlate clinically. A 7 mm and 4 mm right lower lobe pulmonary nodule not seen previous exam subpleural in location could be inflammatory. WBC 14.1 Troponin 0.258 Potassium 5.3 On 09/09/2018 Patient had a brief episode of cardiopulmonary arrest this morning and developed respiratory distress. Subsequently patient was intubated and was transferred to MICU. Patient had a difficult intubation. Patient was given TPA by ER physician. Patient also received multiple doses of epinephrine and sodium bicarbonate. Patient is currently on Levophed drip. Being continued on heparin drip as well. Patient is currently sedated. Initial ABG showed pH 7.0, pCO2 80, pO2 118 Patient was seen by cardiology and pulmonary. 09/10/2018 Patient is currently mechanically ventilated and sedated. Patient is being continued on heparin drip. Continues to be on Levothroid drip. Patient had SVT during cardiopulmonary arrest. Patient was started on amiodarone.. Otherwise hemoglobin dropped to 10.7 today. Continues to have bloody secretions which is being suctioned. Chest x-ray showed bilateral pleural effusion and consolidation. AST 559 and ALT 509 albumin 2.6. Cultures negative so far. Creatinine 1.76. 09/11/2018 52-year-old gentleman with a history of massive bilateral pulmonary embolism right ventricular enlargement and right heart strain. He did receive systemic TPA and was on IV heparin until yesterday which time was turned off because of ongoing bleeding. The patient's overall prognosis remains very guarded. The patient remains on ventilator. Arterial blood gases show a PaO2 of 113 PaCO2 38 and a pH of 7.4. The patient is on saline at 75 mL an hour; Heparin was discontinued yesterday because of ongoing bleeding from the cavity and NG tube. In addition, he's had about a 1 g hemoglobin drop on a daily basis. This morning's hemoglobin is 9.9. 09/12/2018; The patient's overall prognosis remains very guarded. The patient was given a daily interruption of sedation today but could not have a spontaneous breathing trial because he became very tachypnea with respiratory rates above 40. Currently, he is on the volume assist control mode rate of 32, tidal volume 500 , FiO2 35% to be increased to 40% and 5 of PEEP. Arterial blood gases showed a PaO2 of 59 a PaCO2 of 43 and a pH 7.37. That was on 35% FiO2. In addition, the patient's on norepinephrine at 7 mics per minute, propofol at 65 mcg/kg/m, saline IV at 75 mL an hour, heparin via weightbase protocol and vital 1.2 at goal. Chest x-ray shows bilateral effusions with basilar atelectasis and/or infiltrates. On 09/15/2018 Patient currently on mechanical ventilation with assist control and sedation. Patient is being continued on IV heparin. Hemoglobin is 7.5. Renal function slightly worsened with increasing creatinine level 3.56. No active bleeding noted. Chest x-ray showed bilateral pleural effusion and pulmonary vascular congestion. Patient was given a dose of Lasix previously. Patient is currently on antibiotics in the form of Zosyn. 09/16/2018 Patient was seen and examined in the MICU. Currently maintained on mechanical ventilator. Hemoglobin dropped to 5.9 today. 2 units of PRBC was ordered. No signs of active bleeding noted. Patient is being continued on IV heparin. Chest x-ray showed evidence of bilateral consolidation and pleural effusion. Correlate for pulmonary edema and diffuse pneumonia. Currently on Lasix drip. Creatinine level increased to 3.89 today. Otherwise patient is getting empiric antibiotics for possible pneumonia aspiration likely. Patient is being followed by pulmonary cardiology and nephrology. 09/17/2018 Patient is currently on mechanical ventilator. Chest x-ray showed possible fluid overload/pneumonia. Creatinine is trending up at 4.7 today. Hemoglobin is 7.6. Continued on IV heparin. held for permacath placement. Nephrology is planning for hemodialysis. No fever no chills. 09/20/2018 Patient is on mechanical ventilator. Patient is off sedation and is able to blink his eyes. Patient is being continued on hemodialysis. Patient had 3 hemodialysis sessions last one yesterday. Continued on IV antibiotics the form of Zosyn. Leukocytosis slightly improved to 23.7, hemoglobin 9.5 No other acute overnight issues. 09/21/2018 Patient remained on mechanical ventilator. Off sedation and also support. Patient does have slight improvement in mental status. Patient is extremely lethargic and follows simple commands. Hemoglobin is 9.0. Leukocytosis is improved to 17.3. Patient is getting hemodialysis today. Creatinine level IV.82. Chest x-ray showed evidence of congestive heart failure and pleural effusion noted. Patient is afebrile. Blood pressure is maintained. 09/26/2018 Patient is responding to commands patient has a tracheostomy in place. His creatinine has worsened a little bit discussed with the sister at bedside. Patient has weakness secondary to prolonged hospitalization and ICU hospitalization and being on sedation for long time. Decision regarding continuation of hemodialysis will be made on Friday after that patient probably can be discharged to [facility]. Patient is not on ventilator support is on CPAP at this time. 09/27/2018 Patient is doing much better today more awake. Patient is mostly in CPAP occasional ventilatory support. Patient's creatinine marginally improved hopefully may not require dialysis possibly of discharge to select specialty tomorrow. 09/28/2018 Patient is will be dictated dehydrated with the hypovolemic hyponatremia dose of Bumex is being decreased. Increasing the free water through the PEG tube. Creatinine remained stable actually improved compared to yesterday. Urinating well. Objective - Vital Signs Vital signs: Vital Signs Temp 99.2 F 09/28/18 12:00 Pulse 103 H 09/28/18 12:00 Resp 14 09/28/18 12:00 BP 133/83 09/28/18 12:00 Pulse Ox 100 09/28/18 12:00 Intake & Output 09/27/18 09/28/18 09/28/18 18:59 06:59 18:59 Intake Total 1204 1511 551 Output Total 1502 1548 821 Balance -298 -37 -270 Weight 135.8 kg Intake: IV 296 476 148 Piperacillin-Tazobactam 3 100 200 .375 gm In Sodium Chloride 0.9% 100 ml @ 25 mls/hr IVPB Q8H [facility] Rx#: [id number] Pressure bag 36 36 18 Sodium Chloride 0.9% 1, 160 240 130 000 ml @ 20 mls/hr IV . Q24H [facility] Rx#:[id number] Intake, IV Titration 100 Amount Potassium Chloride 20 meq 100 In Water For Injection 1 100ml.bag @ 50 mls/hr IVPB Q2HR [facility] Rx#: [id number] Tube Feeding 588 735 343 Other 220 300 60 Output: Urine 1500 1545 820 Stool 2 3 1 Other: Voiding Method Indwelling Catheter Indwelling Catheter Indwelling Catheter ABP, PAP, CO, CI - Last Documented Arterial Blood Pressure 130/68 - Exam PHYSICAL EXAMINATION: GENERAL: The patient is awake following commands does have tracheostomy in place , moderately obese HEENT: Pupils are round and equally reacting to light. EOMI. No scleral icterus. No conjunctival pallor. Normocephalic, atraumatic. No pharyngeal erythema. No thyromegaly. CARDIOVASCULAR: S1 and S2 present. No murmurs, rubs, or gallops. PULMONARY: Chest is clear to auscultation, no wheezing or crackles. ABDOMEN: Soft, nontender, nondistended, normoactive bowel sounds. No palpable organomegaly. PEG tube in place MUSCULOSKELETAL: No joint swelling or deformity. EXTREMITIES: No cyanosis, clubbing, or pedal edema. NEUROLOGICAL: Generalized weakness secondary to hospitalization SKIN: No rashes. - Labs CBC & Chem 7: 09/28/18 04:50 09/28/18 04:50 Labs: Abnormal Lab Results - Last 24 Hours (Table) 09/27/18 09/27/18 09/28/18 Range/Units 18:09 23:52 04:50 RBC 3.50 L (4.30-5.90) m/uL Hgb 10.3 L (13.0-17.5) gm/dL Hct 33.9 L (39.0-53.0) % MCHC 30.3 L (31.0-37.0) g/dL RDW 16.0 H (11.5-15.5) % ABG pCO2 (35-45) mmHg ABG pO2 (83-108) mmHg ABG HCO3 (21-25) mmol/L ABG Total CO2 (19-24) mmol/L ABG O2 Saturation (94-97) % Sodium (137-145) mmol/L Chloride (98-107) mmol/L Carbon Dioxide (22-30) mmol/L BUN (9-20) mg/dL Creatinine (0.66-1.25) mg/dL Glucose (74-99) mg/dL POC Glucose (mg/dL) 122 H 115 H (75-99) mg/dL Phosphorus (2.5-4.5) mg/dL Magnesium (1.6-2.3) mg/dL 09/28/18 09/28/18 09/28/18 Range/Units 04:50 05:11 06:02 RBC (4.30-5.90) m/uL Hgb (13.0-17.5) gm/dL Hct (39.0-53.0) % MCHC (31.0-37.0) g/dL RDW (11.5-15.5) % ABG pCO2 54 H (35-45) mmHg ABG pO2 111 H (83-108) mmHg ABG HCO3 33 H (21-25) mmol/L ABG Total CO2 35 H (19-24) mmol/L ABG O2 Saturation 97.7 H (94-97) % Sodium 152 H (137-145) mmol/L Chloride 111 H (98-107) mmol/L Carbon Dioxide 33 H (22-30) mmol/L BUN 95 H (9-20) mg/dL Creatinine 4.19 H (0.66-1.25) mg/dL Glucose 134 H (74-99) mg/dL POC Glucose (mg/dL) 117 H (75-99) mg/dL Phosphorus 5.1 H (2.5-4.5) mg/dL Magnesium 2.6 H (1.6-2.3) mg/dL 09/28/18 Range/Units 12:01 RBC (4.30-5.90) m/uL Hgb (13.0-17.5) gm/dL Hct (39.0-53.0) % MCHC (31.0-37.0) g/dL RDW (11.5-15.5) % ABG pCO2 (35-45) mmHg ABG pO2 (83-108) mmHg ABG HCO3 (21-25) mmol/L ABG Total CO2 (19-24) mmol/L ABG O2 Saturation (94-97) % Sodium (137-145) mmol/L Chloride (98-107) mmol/L Carbon Dioxide (22-30) mmol/L BUN (9-20) mg/dL Creatinine (0.66-1.25) mg/dL Glucose (74-99) mg/dL POC Glucose (mg/dL) 124 H (75-99) mg/dL Phosphorus (2.5-4.5) mg/dL Magnesium (1.6-2.3) mg/dL Assessment and Plan Plan: Acute cardiopulmonary arrest secondary to to pulmonary embolism. presently has tracheostomy and not requiring ventilator support Acute hypercapnic, hypoxic respiratory failure secondary to massive bilateral pulmonary embolism. Status post tracheostomy and PEG tube placement Massive pulmonary embolism with right ventricular strain. Patient was given TPA during CPR Acute hypotension . S/P pressor support. 2-D echocardiogram showed normal LV function acute kidney injury due to ATN. Started on hemodialysis during this laceration. Presently on hold creatinine stable patient is urinating Possible aspiration pneumonia Elevated troponin level secondary to right ventricular strain Acute lower extremity DVT Previous history of smoking Bilateral lower extremity chronic lymphedema Morbid obesity with BMI 43.7 Seborrheic dermatitis history Anxiety morbid obesity Dry gangrene of the left fifth toe probably secondary to norepinephrine he was on. Plan: Continue on current medication regime ,monitoring and symptomatic treatment. Neuro workup in progress as mentioned above, with EEG and CT results pending. Hemodialysis catheter removed,.close monitoring of renal function with repeat labs ordered for a.m. PT/OT. Sister updated at bedside. Prognosis guarded given multiple complex medical issues. Further recommendations to follow
--- NOTE | 2018-09-28 14:44 | P.PN ---
Progress Note - Text Progress Note Date: 09/28/18 52-year-old seen this afternoon in the ICU follow-up visit for placement of a PEG tube for nutritional support with tracheostomy. PEG tube no redness around the site. In progress tolerating tracheostomy in place vent support did note the discharge plan and progress per the attending plan discharge to [facility] specialty within the next 48 hours. No further surgical recommendations at this time will follow on a as necessary basis reconsult if needed The above impression and plan of care have been discussed and directed by signing physician. Ella Vargas nurse practitioner acting as scribe for signing physician.
--- NOTE | 2018-09-28 16:28 | PN ---
PROGRESS NOTE Patient is seen for followup for acute kidney injury. The patient has been able to remain off of dialysis. He has had good urine output. He was initially maintained on Bumex drip, which was then discontinued, and currently patient is on Bumex 1 mg IV q.8 hours. Volume status has improved with decrease in his edema. Patient has been able to come off the vent and was maintained on trach collar for a short time yesterday. His serum creatinine has stabilized and it is slowly decreasing. The plan is to continue off of hemodialysis for now. Patient's sodium has been slowly increasing. The free water was increased yesterday down the feeding tube. On examination today, patient is comfortable. He is awake. He is on the vent. He is following commands. Blood pressure was 133/83, heart rate of 103 per minute. Patient is afebrile. EXAMINATION OF THE HEART: S1, S2. EXAMINATION OF LUNGS: Bilateral breath sounds are heard. ABDOMEN: Soft, non-tender. Examination of lower extremities shows chronic skin changes, chronic edema with wrinkling of the skin noted, suggesting recent improvement in volume status and recent diuresis. Labs show sodium 142, potassium 3.9, chloride 111. CO2 is 33, BUN of 95, serum creatinine at 4.1 mg/dL. ASSESSMENT: 1. Acute kidney injury, acute tubular necrosis, initially oliguric, currently nonoliguric, with significantly improved urine output. Off of Bumex drip and maintained on IV push Bumex, which I will decrease. Serum creatinine is slowly improving. I will hold off on hemodialysis for now. 2. Severe volume overload, now improved. Decrease Bumex to 1 mg q.12 hours. 3. Status post cardiac arrest. 4. Pulmonary embolism. 5. Vent-dependent respiratory failure. 6. Hypernatremia associated with free water deficit, maintained on free water down the feeding tube, which will be increased to 200 q.4 hours. The maintenance IV, which is at 20 mL/hour, has been switched to D5W as well. 7. Bilateral pulmonary emboli, status post tPA, maintained on anticoagulation. PLAN: Continue off of dialysis. Decrease Bumex to 1 mg q.12 hours and repeat labs in a.m. Continue to hold off on dialysis. MMODL / IJN: [id number] /
[2018-09-28 18:18] LABS: Glucose,Whole Blood 106 mg/dL (75-99)
[2018-09-28 20:05] LABS: Potassium 3.7 mmol/L (3.5-5.1)
[2018-09-28] MEDS: BUMETANIDE 0.25 MG/ML 10 ML VIAL IV SCH (20:12)
--- NOTE | 2018-09-28 22:09 | P.PN ---
Subjective Progress Note Date: 09/28/18 This patient is seen on neurologic rounds today in the intensive care unit. The patient is showing slight improvement in his degree of alertness. As noted he is status post tracheostomy and PEG tube placement a few days ago. He is tolerating his tube feedings. His creatinine is somewhat worse today as compared to yesterday and nephrology is following him. Family is to have a meeting on Friday to discuss ongoing treatment for the patient including his hemodialysis. Patient is currently on CPAP at night and seems to be tolerating this fairly well. He underwent a routine EEG yesterday which was reviewed and reveals severe slowing with a background of 5 Hz. No epileptiform discharges were seen. These findings are consistent with a severe hypoxic/anoxic encephalopathy following cardiopulmonary arrest. This EEG finding would be consistent with a hypoxic respiratory failure that he likely suffered as well. He is showing slight improvement in his mental status today in that he is able to acknowledge and answer questions by nodding his head. He is being considered for possible discharge to select specialty either tomorrow or Friday. The patient does appear to be more awake and alert today as compared to yesterday. ICU nursing staff also feel he is showing improvement in his overall mental status. His serum creatinine today is 4.19. Plans are for close monitoring of his laboratory test results tomorrow to hopefully avoid hemodialysis treatment for him. At this point Dr. Vasquez does not wish to proceed with hemodialysis for this patient. Neurologically the patient is showing some improvement in his overall mental status as compared to initial evaluation. According to the ICU nursing staff the patient is awaiting transferred to [facility] specialty hopefully tomorrow if bed is available. As noted the patient has evidence of a diffuse metabolic encephalopathy which remains stable today. We will continue close neurological follow-up for the patient during this admission. His overall prognosis at this time remains very guarded. Objective - Vital Signs Vital signs: Vital Signs Temp 99.2 F 09/28/18 16:00 Pulse 96 09/28/18 17:00 Resp 20 09/28/18 17:00 BP 120/80 09/28/18 17:00 Pulse Ox 100 09/28/18 17:00 Intake & Output 09/27/18 09/28/18 09/28/18 18:59 06:59 18:59 Intake Total 1204 1511 1011 Output Total 1502 1548 1747 Balance -298 -37 -736 Weight 135.8 kg Intake: IV 296 476 363 Dextrose 5% in Water 1, 200 000 ml @ 40 mls/hr IV . Q24H [facility] Rx#:[id number] Piperacillin-Tazobactam 3 100 200 .375 gm In Sodium Chloride 0.9% 100 ml @ 25 mls/hr IVPB Q8H [facility] Rx#: [id number] Pressure bag 36 36 33 Sodium Chloride 0.9% 1, 160 240 130 000 ml @ 20 mls/hr IV . Q24H [facility] Rx#:[id number] Intake, IV Titration 100 Amount Potassium Chloride 20 meq 100 In Water For Injection 1 100ml.bag @ 50 mls/hr IVPB Q2HR [facility] Rx#: [id number] Tube Feeding 588 735 588 Other 220 300 60 Output: Urine 1500 1545 1745 Stool 2 3 2 Other: Voiding Method Indwelling Catheter Indwelling Catheter Indwelling Catheter # Bowel Movements 1 ABP, PAP, CO, CI - Last Documented Arterial Blood Pressure 130/68 - Exam Physical Examination: PHYSICAL EXAMINATION: Patient is resting comfortably in bed. VITAL SIGNS: Blood pressure is [120/80]. Heart rate is [96]. Respiration is [20] . Temperature is [99.2]. HEENT: Head is atraumatic, neck is supple, there were no carotid bruits. CHEST: Lungs are clear to auscultation and percussion. CARDIAC: S1, S2 normal rate and rhythm. There is no murmur. ABDOMEN: Soft and nontender. Bowel sounds are present. EXTREMITIES: There is no pedal edema. Peripheral pulses are present. Neurological examination: Patient's neurological examination is unchanged from yesterday. He remains status post tracheostomy and PEG tube placement in the intensive care unit. He is showing slight improvement in his mental status today. He is awaiting possible transfer to select specialty early next week. There is been no significant change or improvement in his overall neurological status. - Labs CBC & Chem 7: 09/28/18 04:50 09/28/18 19:40 Labs: Abnormal Lab Results - Last 24 Hours (Table) 09/27/18 09/27/18 09/28/18 Range/Units 18:09 23:52 04:50 RBC 3.50 L (4.30-5.90) m/uL Hgb 10.3 L (13.0-17.5) gm/dL Hct 33.9 L (39.0-53.0) % MCHC 30.3 L (31.0-37.0) g/dL RDW 16.0 H (11.5-15.5) % ABG pCO2 (35-45) mmHg ABG pO2 (83-108) mmHg ABG HCO3 (21-25) mmol/L ABG Total CO2 (19-24) mmol/L ABG O2 Saturation (94-97) % Sodium (137-145) mmol/L Chloride (98-107) mmol/L Carbon Dioxide (22-30) mmol/L BUN (9-20) mg/dL Creatinine (0.66-1.25) mg/dL Glucose (74-99) mg/dL POC Glucose (mg/dL) 122 H 115 H (75-99) mg/dL Phosphorus (2.5-4.5) mg/dL Magnesium (1.6-2.3) mg/dL 09/28/18 09/28/18 09/28/18 Range/Units 04:50 05:11 06:02 RBC (4.30-5.90) m/uL Hgb (13.0-17.5) gm/dL Hct (39.0-53.0) % MCHC (31.0-37.0) g/dL RDW (11.5-15.5) % ABG pCO2 54 H (35-45) mmHg ABG pO2 111 H (83-108) mmHg ABG HCO3 33 H (21-25) mmol/L ABG Total CO2 35 H (19-24) mmol/L ABG O2 Saturation 97.7 H (94-97) % Sodium 152 H (137-145) mmol/L Chloride 111 H (98-107) mmol/L Carbon Dioxide 33 H (22-30) mmol/L BUN 95 H (9-20) mg/dL Creatinine 4.19 H (0.66-1.25) mg/dL Glucose 134 H (74-99) mg/dL POC Glucose (mg/dL) 117 H (75-99) mg/dL Phosphorus 5.1 H (2.5-4.5) mg/dL Magnesium 2.6 H (1.6-2.3) mg/dL 09/28/18 Range/Units 12:01 RBC (4.30-5.90) m/uL Hgb (13.0-17.5) gm/dL Hct (39.0-53.0) % MCHC (31.0-37.0) g/dL RDW (11.5-15.5) % ABG pCO2 (35-45) mmHg ABG pO2 (83-108) mmHg ABG HCO3 (21-25) mmol/L ABG Total CO2 (19-24) mmol/L ABG O2 Saturation (94-97) % Sodium (137-145) mmol/L Chloride (98-107) mmol/L Carbon Dioxide (22-30) mmol/L BUN (9-20) mg/dL Creatinine (0.66-1.25) mg/dL Glucose (74-99) mg/dL POC Glucose (mg/dL) 124 H (75-99) mg/dL Phosphorus (2.5-4.5) mg/dL Magnesium (1.6-2.3) mg/dL Assessment and Plan (1) Acute metabolic encephalopathy Current Visit: Yes Status: Acute Code(s): G93.41 - METABOLIC ENCEPHALOPATHY SNOMED Code(s): 00659619 (2) Pulmonary embolism Current Visit: Yes Status: Acute Code(s): I26.99 - OTHER PULMONARY EMBOLISM WITHOUT ACUTE COR PULMONALE SNOMED Code(s): 78064467 (3) Congestive heart failure (CHF) Current Visit: No Status: Acute Code(s): I50.9 - HEART FAILURE, UNSPECIFIED SNOMED Code(s): 67153564 (4) DVT (deep venous thrombosis) Current Visit: No Status: Acute Code(s): I82.409 - ACUTE EMBOLISM AND THOMBOS UNSP DEEP VN UNSP LOWER EXTREMITY SNOMED Code(s): 045297831 (5) Obesity Current Visit: No Status: Acute Code(s): E66.9 - OBESITY, UNSPECIFIED SNOMED Code(s): 548094444 Plan: This patient is a 52-year-old male status post massive bilateral pulmonary embolism with cardiopulmonary arrest. Patient was initially intubated and then extubated with tracheostomy and PEG tube placement. Patient had day clear evidence for a hypoxic injury given his cardiopulmonary arrest situation. He has been making slow progress in the intensive care unit and is noted did undergo a tracheostomy and PEG tube placement. He has remained very lethargic since extubation. He is showing slight improvement today in terms of his mental status and he does seem to follow simple commands. He is being followed by multiple specialists. His routine EEG which was recently performed reveals severe slowing consistent with a hypoxic/anoxic encephalopathy. His overall prognosis at this time remains very guarded. We will continue to follow his progress closely in the intensive care unit. Primary care physician is working on possible discharge to select specialty in the next few days. His overall prognosis at this time remains very guarded. We will continue to follow him closely in the intensive care unit. We will reassess him tomorrow to see if he continues to show slight improvement. His serum creatinine today is 4.19 and his BUN is 91. His laboratory testing for C. difficile came back negative. Patient is being considered for possible transfer to select specialty possibly tomorrow. Dr. Vasquez has seen the patient for nephrology consultation. Plans are not to proceed with any hemodialysis for this patient at this time. The patient does show improvement today in terms of his overall mental status. He does seem to be more alert and is following simple commands. As noted he is being considered for possible discharge to select specialty either tomorrow or Friday. Once again his overall prognosis at this time remains very guarded.
[2018-09-28] MEDS ORDERED: Potassium Replacement Protocol 1 EACH MISC MISCELLANE PRN (23:01)
[2018-09-29] MEDS ORDERED: POTASSIUM BICARBONATE/CIT AC 20 MEQ TABLET.EFF NG-TUBE SCH
[2018-09-29] MEDS: IPRATROPIUM-ALBUTEROL 3 ML NEB INHALATION SCH ×5 (00:03→16:09)
[2018-09-29 00:04] LABS: Glucose,Whole Blood 140 mg/dL (75-99)
[2018-09-29] MEDS: HYDROmorphone 1 MG/ML 1 ML SYRINGE IVP PRN ×2 (00:19→02:50)
[2018-09-29] MEDS: INSULIN ASPART 100 UNIT/ML 1 ML 10 ML VIAL SQ SCH ×4 (00:21→17:48)
[2018-09-29 04:50] LABS: ABG Base Excess 9.1 mmol/L; ABG HCO3 34 mmol/L (21-25); ABG Oxygen Saturation 98.5 % (94-97); ABG PCO2 56 mmHg (35-45); ABG PH 7.39 (7.35-7.45); ABG PO2 118 mmHg (83-108); ABG TCO2 36 mmol/L (19-24)
[2018-09-29 05:03] LABS: Basophils # (A) 0.1 k/uL (0-0.2); Basophils % (A) 1 %; Eosinophils # (A) 0.4 k/uL (0-0.7); Eosinophils % (A) 5 %; HCT 34.3 % (39.0-53.0); HGB 10.3 gm/dL (13.0-17.5); Hypochromasia Moderate; Lymphocytes # (A) 1.8 k/uL (1.0-4.8); Lymphocytes % (A) 20 %; MCV 96.4 fL (80.0-100.0); Mean Platelet Volume 7.3; Monocytes # (A) 0.9 k/uL (0-1.0); Monocytes % (A) 9 %; Neutrophils # (A) 5.7 k/uL (1.3-7.7); Neutrophils % (A) 63 %; Platelet Count 454 k/uL (150-450); RBC 3.56 m/uL (4.30-5.90); RDW 15.7 % (11.5-15.5)
[2018-09-29 05:17] LABS: Calcium 10.1 mg/dL (8.4-10.2); Magnesium 2.6 mg/dL (1.6-2.3); Phosphorus 5.7 mg/dL (2.5-4.5)
[2018-09-29 05:31] LABS: Potassium 4.3 mmol/L (3.5-5.1)
[2018-09-29 06:37] LABS: Glucose,Whole Blood 125 mg/dL (75-99)
--- NOTE | 2018-09-29 07:35 | PN ---
PROGRESS NOTE Mr. Rowley is a 52-year-old male who presented with a massive bilateral pulmonary embolism with respiratory failure. He has been intubated. He has a trach, hemodynamically stable. He is awake, alert, following commands. He has no evidence of tachycardia or bradycardia. He has continued to be on hydralazine 50 mg 3 times a day, metoprolol tartrate 50 mg 3 times a day, and Xarelto 15 mg twice a day in addition to Bumex 1 mg IV q.12 hours. PHYSICAL EXAMINATION: Blood pressure 134/80 with a heart rate in in the 90s. LUNGS: Clear anteriorly. HEART: Regular rate and rhythm. S1, S2. No S3. No rub appreciated. ABDOMEN: Soft, obese, and nontender. EXTREMITIES: +1 edema. NEUROLOGICALLY: He is following commands and appears to be slightly stronger. On the monitor he is in sinus mechanism. His chest x-ray shows no significant infiltrate. LAB DATA: Revealed a hemoglobin 10.3, white blood cell of 9000, BUN and creatinine 97 and 3.6, potassium 4.3. IMPRESSION: 1. Status post massive bilateral pulmonary embolism with respiratory failure, stabilizing. 2. Acute kidney injury, stabilizing, off dialysis at this time. 3. Atrial arrhythmia, resolved. 4. Morbid obesity. 5. Hypertension. 6. Status post tracheostomy. RECOMMENDATION: From the cardiac standpoint, will continue on the present therapy. His blood pressure is stable on the present regimen. Will continue on a plan for weaning him and probably transfer to a select care facility for long-term weaning. MMODL / IJN: [id number] /
[2018-09-29] MEDS: RIVAROXABAN 15 MG TAB PO SCH ×2 (08:03→17:08)
[2018-09-29] MEDS: CALCIUM ACETATE 667 MG CAP PO SCH ×3 (08:03→17:04)
[2018-09-29] MEDS: BUMETANIDE 0.25 MG/ML 10 ML VIAL IV SCH (08:03)
[2018-09-29] MEDS: PANTOPRAZOLE 40 MG/10 ML VIAL IVP SCH (08:06)
[2018-09-29] MEDS: hydrALAZINE HCL 50 MG TAB PO SCH ×2 (08:06→16:47)
[2018-09-29] MEDS: CHLORHEXIDINE GLUCONATE 15 ML CUP MUCOUS MEM SCH (08:06)
[2018-09-29] MEDS: METOPROLOL TARTRATE 50 MG TAB PO SCH ×2 (08:06→16:47)
--- NOTE | 2018-09-29 08:27 | XR ---
EXAMINATION TYPE: XR chest 1V portable DATE OF EXAM: 09/29/2018 COMPARISON: Prior chest x-ray 09/28/2018 HISTORY: Abnormal chest x-ray TECHNIQUE: Single frontal view of the chest is obtained. FINDINGS: Tracheostomy tube is overlying appropriate position, left jugular central venous catheter shows the distal tip near the cavoatrial junction level. There is no evident pneumothorax. Bibasilar increased density is noted. Heart remains enlarged. Perihilar airspace disease suspected. There are o verlying cardiac leads. Patient is rotated. IMPRESSION: Findings are similar to prior exam. Correlate for congestive heart failure, pneumonia or atelectasis.
--- NOTE | 2018-09-29 09:26 | P.PN ---
Subjective Progress Note Date: 09/29/18 Principal diagnosis: Respiratory failure, massive bilateral pulmonary embolism Progress note dated 09/10/2018 52-year-old male who presented to the emergency department with massive bilateral pulmonary embolism, right ventricular enlargement and right heart strain. The patient was started on IV heparin and admitted to the general medical floor. The patient subsequently had a cardiac arrest and was transferred to the intensive care unit we had a prolonged cardiopulmonary arrest with prolonged cardiopulmonary resuscitation and eventual return of spontaneous circulation. The patient was given systemic TPA by the ER physician at the bedside. Lines were placed yesterday by myself my nurse practitioner. The patient remains on IV heparin. The patient's overall situation is poor. In addition to prolonged resuscitation, the patient had the massive bilateral pulmonary embolism. We attempted to see whether or not our interventional colleagues would be willing to do EKOS on this patient but his instability in the fact that he receive systemic TPA precluded that. He in addition has a previous history of DVT and pulmonary most him was treated with blood thinners for 6 months he has an acute DVT of the right lower extremity on this admission morbid obesity previous history of tobacco use and sedentary lifestyle anxiety and previous cholecystectomy and hernia repair. His overall prognosis at this point is poor. He remains on the mechanical ventilator on the volume assist control mode with a rate of 32 tidal volume 500 FiO2 40% PEEP of 5. Arterial blood gases on the same settings except 60% show a PaO2 of 222 PaCO2 of 36 and a pH of 7.45. He is on propofol at 45 mics per kilogram per minute, norepinephrine at 20 mics per minute heparin via weightbase protocol a saline IV at 75 mL an hour and amiodarone at 1 mg/m. In addition, yesterday should change, the patient apparently had an episode of supraventricular tachycardia cardioversion was attempted an adenosine was given. More recently, at 07 10 this morning, again with an episode of SVT, adenosine was given which seemed to help in the cardiology started the patient on amiodarone. Chest x- ray is consistent with fluid overload. Again prognosis is poor this point. We will attempt to talk to the family sometime today. Progress note dated 09/11/2018 52-year-old gentleman with a history of massive bilateral pulmonary embolism right ventricular enlargement and right heart strain. The patient's hospital course has been very abdulaziz at best. He did receive systemic TPA and was on IV heparin until yesterday which time was turned off because of ongoing bleeding. The patient's overall prognosis remains very guarded. The patient remains on the volume assist control mode rate of 32, tidal volume of 500, FiO2 40% and a PEEP of 5. Arterial blood gases show a PaO2 of 113 PaCO2 38 and a pH of 7.4. The patient is on saline at 75 mL an hour, propofol 65 mics per kilogram per minute, no epinephrine at 22 mcg/m, amiodarone 0.5 mg/m and vital AF at 37 with a goal of 37 mL an hour. Heparin was discontinued yesterday because of ongoing bleeding from the cavity and NG tube. In addition, he's had about a 1 g hemoglobin drop on a daily basis. This morning's hemoglobin is 9.9. I did have a chance to speak in detail yesterday to the daughter. The patient is currently unmarried. There are not many family members. The patient does have a previous history of DVT and pulmonary most him and apparently was treated for some period of time with blood thinners. Progress note dated 09/12/2018. 52-year-old gentleman with a history of massive bilateral pulmonary embolism, right ventricular enlargement and right heart strain. The patient's hospital course has been very abdulaziz. He did have prolonged episode of cardiopulmonary resuscitation. She did receive systemic TPA and was on IV heparin which had to be stopped yesterday and then resumed last night again. This is because of ongoing bleeding and dropping hemoglobin. The patient's overall prognosis remains very guarded. The patient was given a daily interruption of sedation today but could not have a spontaneous breathing trial because he became very tachypnea with respiratory rates above 40. Currently, he is on the volume assist control mode rate of 32, tidal volume 500, FiO2 35% to be increased to 40 % and 5 of PEEP. Arterial blood gases showed a PaO2 of 59 a PaCO2 of 43 and a pH 7.37. That was on 35% FiO2. In addition, the patient's on norepinephrine at 7 mics per minute, propofol at 65 mcg/kg/m, saline IV at 75 mL an hour, heparin via weightbase protocol and vital 1.2 at goal. Chest x-ray shows bilateral effusions with basilar atelectasis and/or infiltrates. I had asked the respiratory therapist put the patient on PSV 8 CPAP of 5 after he was fully awake but we never got. Given his profound tachypnea off of sedation. I talked to his daughter extensively 2 days ago. She was not here yesterday when I was here. Progress note dated 09/13/2018 52-year-old male with a history of massive bilateral pulmonary embolism, right ventricular enlargement, and right heart strain. The patient's hospital course has been very abdulaziz beginning with initial admission to general medical floor on IV heparin only. The patient then had a cardiopulmonary arrest and had a prolonged period of cardiopulmonary resuscitation with eventual return of spontaneous circulation. A groin IV was placed by the ER physician and systemic TPA was given. At that point, though we tried to send the patient for EKOS, the systemic TPA in the patient's instability precluded that. Currently, the patient remains on the mechanical ventilator on the volume assist control mode rate of 32, tidal volume 500, FiO2 50% and PEEP of 5. Arterial blood gases show a PaO2 of 70 for a PaCO2 of 44 and a pH is 7.36. The patient remains on norepinephrine at 4 mcg/m, heparin via weightbase protocol, a saline IV at 75 mL an hour to be dropped down to 25 mL an hour and vital AF at 37 with a goal of 37 mL per hour. In addition, I've asked the nurses to neck movement of the ports of the triple-lumen catheter so that we can monitor central venous pressure. The patient is placed on some Ancef empirically at 1 g every 8 hours. The patient will also receive Lasix 40 mg IV push for chest x-ray which shows bilateral fluid overload. Microbiologic studies are currently all negative. Chest x-ray, labs and medications are all reviewed. This patient also has a previous history of DVT and pulmonary embolism. There also may be an occult hypercoagulable state yet to be detected. Progress note dated 09/28/2018 52-year-old male with a history of massive bilateral pulmonary embolism, right ventricular enlargement, and right heart strain. I saw the patient when he first was admitted to the hospital. The patient received systemic TPA at that time but should have likely received EKOS. Currently, the patient has made improvement though. He did have a tracheostomy and PEG tube placement done on September 23 for failure to wean from mechanical ventilation. He still on the mechanical ventilator on the pressure support mode with a pressure of 8 cm, and CPAP of 5, and 40%. He's been on those settings since 0800 on September 27. The patient has blood gases showing a PaO2 of 111 a PaCO2 of 54 and a pH of 7.39. He's had a saline IV running at 20 mL an hour and tube feeds at 49 with a goal of 49 mL an hour. His chest x-ray shows left lower lobe atelectasis and collapse. There is a small effusion. There is a tracheostomy tube. The patient is awake and alert. He apparently is going to be transferred to one of the specialized nursing facilities later today or tomorrow. It is a long-term acute care facility. Progress note dated September 29 2018 52-year-old male with a history of massive bilateral pulmonary embolism, right ventricular enlargement with right ventricular strain. The patient was admitted September back. I saw the patient initially during admission. The patient had a cardiopulmonary arrest with prolonged cardiopulmonary resuscitation and eventual return us spontaneous circulation. At that time, the patient did receive TPA. The patient has had a very long abdulaziz intensive care unit course. He ended up getting a tracheostomy and PEG tube placement a few days back. The patient is being evaluated for transfer to a specialized nursing facility. He remains on pressure support of 8 CPAP of 5 and 40% FiO2 to be dropped down to 35% FiO2. Arterial blood gases show a PaO2 of 118 a PaCO2 of 56 and a normal pH of 7.39. He is getting dextrose at 30 mL an hour and Nepro at 49 mL now with a goal of 49 mL an hour. Chest x-ray shows some left lower lobe infiltrate and/or effusion. He is awake and alert. The patient 's overall situation has improved. Microbiology is evaluated in the still negative. White count is 9, hemoglobin 10.3, hematocrit 34.3, and platelet count 454,000. Sodium 150 potassium 4.3 chloride 110 CO2 32 BUN 97 and creatinine 3.60. Objective - Vital Signs Vital signs: Vital Signs Temp 97.9 F 09/29/18 08:00 Pulse 89 09/29/18 08:10 Resp 12 09/29/18 08:00 BP 141/75 09/29/18 08:00 Pulse Ox 100 09/29/18 08:00 Intake & Output 09/28/18 09/29/18 09/29/18 18:59 06:59 18:59 Intake Total 1454 1562 387 Output Total 1947 1416 442 Balance -493 146 -55 Weight 136.1 kg Intake: IV 406 525 86 Dextrose 5% in Water 1, 240 489 80 000 ml @ 40 mls/hr IV . Q24H [facility] Rx#:[id number] Pressure bag 36 36 6 Sodium Chloride 0.9% 1, 130 000 ml @ 20 mls/hr IV . Q24H [facility] Rx#:[id number] Oral 0 Tube Feeding 588 637 98 Lipid 3 Pressure bag 3 Other 460 400 200 Output: Urine 1944 1415 440 Stool 2 1 2 Other: Voiding Method Indwelling Catheter Indwelling Catheter Indwelling Catheter # Bowel Movements 1 ABP, PAP, CO, CI - Last Documented Arterial Blood Pressure 130/68 - Exam No acute distress, awake, with a midline tracheostomy tube. HEENT examination is grossly unremarkable. Mucous membranes are moist. Neck supple. Full range of motion. No adenopathy thyromegaly or neck vein distention. Cardiovascular examination reveals regular rhythm rate. S1-S2 normal. No S3 or S4. No discernible murmur noted. Heart sounds are distant. Heart rate is 80 bpm. Lungs reveal coarse bilateral breath sounds. Crackles are noted bilaterally in our bit worse today. Diffuse rhonchi are appreciated. No wheezes. Breath sounds are diminished throughout. Breath sounds are equal bilaterally. Abdomen is obese. Bowel sounds are noted. No masses appreciated. PEG tube is noted. Extremities. There is some chronic venous stasis changes. There is some pitting. Skin is reveal some chronic venous stasis changes. Neurologic examination is limited but appears to be relatively normal. - Labs CBC & Chem 7: 09/29/18 04:25 09/29/18 04:25 Labs: Abnormal Lab Results - Last 24 Hours (Table) 09/28/18 09/28/18 09/28/18 Range/Units 12:01 18:07 19:40 RBC (4.30-5.90) m/uL Hgb (13.0-17.5) gm/dL Hct (39.0-53.0) % MCHC (31.0-37.0) g/dL RDW (11.5-15.5) % Plt Count (150-450) k/uL ABG pCO2 (35-45) mmHg ABG pO2 (83-108) mmHg ABG HCO3 (21-25) mmol/L ABG Total CO2 (19-24) mmol/L ABG O2 Saturation (94-97) % Sodium 151 H (137-145) mmol/L Chloride (98-107) mmol/L Carbon Dioxide (22-30) mmol/L BUN (9-20) mg/dL Creatinine (0.66-1.25) mg/dL Glucose (74-99) mg/dL POC Glucose (mg/dL) 124 H 106 H (75-99) mg/dL Phosphorus (2.5-4.5) mg/dL Magnesium (1.6-2.3) mg/dL 09/28/18 09/29/18 09/29/18 Range/Units 23:52 04:25 04:25 RBC 3.56 L (4.30-5.90) m/uL Hgb 10.3 L (13.0-17.5) gm/dL Hct 34.3 L (39.0-53.0) % MCHC 30.0 L (31.0-37.0) g/dL RDW 15.7 H (11.5-15.5) % Plt Count 454 H (150-450) k/uL ABG pCO2 (35-45) mmHg ABG pO2 (83-108) mmHg ABG HCO3 (21-25) mmol/L ABG Total CO2 (19-24) mmol/L ABG O2 Saturation (94-97) % Sodium 150 H (137-145) mmol/L Chloride 110 H (98-107) mmol/L Carbon Dioxide 32 H (22-30) mmol/L BUN 97 H (9-20) mg/dL Creatinine 3.60 H (0.66-1.25) mg/dL Glucose 133 H (74-99) mg/dL POC Glucose (mg/dL) 140 H (75-99) mg/dL Phosphorus 5.7 H (2.5-4.5) mg/dL Magnesium 2.6 H (1.6-2.3) mg/dL 09/29/18 09/29/18 Range/Units 04:45 06:26 RBC (4.30-5.90) m/uL Hgb (13.0-17.5) gm/dL Hct (39.0-53.0) % MCHC (31.0-37.0) g/dL RDW (11.5-15.5) % Plt Count (150-450) k/uL ABG pCO2 56 H (35-45) mmHg ABG pO2 118 H (83-108) mmHg ABG HCO3 34 H (21-25) mmol/L ABG Total CO2 36 H (19-24) mmol/L ABG O2 Saturation 98.5 H (94-97) % Sodium (137-145) mmol/L Chloride (98-107) mmol/L Carbon Dioxide (22-30) mmol/L BUN (9-20) mg/dL Creatinine (0.66-1.25) mg/dL Glucose (74-99) mg/dL POC Glucose (mg/dL) 125 H (75-99) mg/dL Phosphorus (2.5-4.5) mg/dL Magnesium (1.6-2.3) mg/dL Assessment and Plan Assessment: Assessment Acute hypoxemic respiratory failure, requiring intubation and mechanical ventilation, secondary to bilateral massive pulmonary embolism. Massive pulmonary embolism with evidence of right heart strain and acute dilatation of the right ventricle subsequent cardiopulmonary arrest prolonged cardiopulmonary resuscitation and eventual return of spontaneous circulation, patient intubated on September 09 during the resuscitation. Prolonged cardiopulmonary arrest with prolonged cardiopulmonary resuscitation but with eventual return of spontaneous ventilation, rule out anoxic brain injury Status post tracheostomy and PEG tube placement on September 23 Previous history of DVT and pulmonary embolism, treated with 6 months of warfarin History of GI bleed, currently stable Acute DVT, right lower extremity Systemic administration of TPA on this admission Morbid obesity. Previous history of tobacco use History of anxiety Status post cholecystectomy and hernia repair Plan: Plan dated 09/09/2018 After a prolonged resuscitation and difficult intubation, the patient was eventually transferred back up to the ICU. The patient will be placed on the mechanical ventilator with settings of tidal volume 500, 100%, PEEP of 5, and rate of 24 breaths per minute. We'll place him on the volume assist control mode. We'll see if we can't place lines in the patient. The right groin line is probably a dirty line. He did receive systemic TPA. White count is 12.6, hemoglobin 15.4, hematocrit 48.3 and platelet count 279,000. PTT was 46.6. Sodium 139 potassium 4.6 chloride 109 CO2 22 BUN and creatinine were 12 and 0.99. Troponin was 0.258. Chest x-ray, labs, medications, computed tomography scan, and Doppler of lower extremity are reviewed. Medications are reviewed. Prognosis is guarded. Critical care time 40 minutes Plan dated 09/10/2018 Currently, the patient is on the assist control mode. Blood gases have been evaluated. FiO2 dropped from 60 down to 40%. The patient remains on propofol, norepinephrine, IV heparin, and IV amiodarone. His overall prognosis remains very poor. White count is 15 hemoglobin 12.7 hematocrit 38.8 and platelet count 288,000. PT 13.3 INR 1.4 and PTT 87.1. Sodium and potassium are normal. Chloride 108 CO2 25 BUN and creatinine were 21 and 1.76. AST was 559 8 hours T was 506 and albumin was 2.6. Microbiologic studies remain negative. Chest x- ray labs and medications are all reviewed. Additional recommendations and suggestions are forthcoming. Medications will be reviewed. Critical care time 38 minutes Plan Dated 09/11/2018 White Count Is 12.9, Hemoglobin down to 9.9, Hematocrit 30.2 and Platelet Count 236,000. Arterial Blood Gases Show a PaO2 of 113 a PaCO2 of 38 and a pH of 7.44. The FiO2 Can Be Dropped down to 35%. Sodium Is 136, Potassium 3.5, Chloride 107 and CO2 Is 26 BUN/creatinine Were 16 and 1.77 Respectively. Thus Far, Microbiologic Studies Are Negative. Chest X-Ray Shows Bilateral Pleural Effusions, Cardiomegaly, and Some Basilar Atelectasis or Infiltrate. Labs Medications and X-Rays Are All Reviewed. Prognosis Remains Very Guarded. I Did Have a Chance to Speak in Detail to the Daughter Yesterday. She Understands the [place] of the Situation. We Will Continue to Follow. Critical Care time is 33 minutes Plan dated 09/12/2018 We did try a daily interruption of sedation but when the sedation was turned off , the patient became very tachypnea and dyspneic. His respiratory rates were more than 45 rest permitted. Hence, a spontaneous breathing trial was not attempted. Chest x-ray is evaluated. Microbiologic studies are negative thus far. White count is 14, hemoglobin 9.4, hematocrit 27.2 and platelet count 197, 000. PT was 10.6 INR 1.1 and PTT 49.1. Sodium was 136 potassium 4.1 chloride 107 CO2 23 BUN 15 creatinine 1.68. Labs, x-rays and medications are all reviewed. Prognosis remains poor. The patient's IV amiodarone has been converted to oral amiodarone at 400 mg twice a day. The FiO2 was increased from 35 to 40% given the borderline PaO2. Critical care time 35 minutes Plan dated 09/13/2018 The patient will have his IV dropped from 75 mL an hour to 20 mL an hour. We' ll continue with tube feeding. We'll continue with the heparin but continue to watch the hemoglobin very carefully. The norepinephrine has been slowly weaned down. We will do a daily interruption of sedation. Yesterday, he was not a candidate for spontaneous breathing trial. We will cut one of the 3 ports of the central venous catheter for CVP monitoring. We'll give the patient Ancef 1 g every 8 hours empirically. Finally, we'll give the patient Lasix 40 mg IV push. Labs, x-rays a medications are all reviewed. I again spoke to the family yesterday. They understand his prognosis is very guarded. White count is 8.9, hemoglobin 8.2 and hematocrit 25.5 with a normal platelet count. PTT is 63.7. Sodium and potassium are normal. Chloride is 111 CO2 14 anion gap is 16 and BUN and creatinine were 15 and 1.76. Critical care time 35 minutes Plan dated 09/28/2018 Currently, the patient's arterial blood gases are stable. He is currently on pressure support ventilation of 8 and CPAP of 5 and 40% FiO2. White count is 9.0, hemoglobin 10.3, hematocrit 33.9 and platelet count 402,000. Sodium is 152 potassium 3.9 chloride is 111 CO2 33 BUN and currently 95 and 4.19. I will switch the saline IV to D5 W. If not already receiving water flushes he'll need them. He is getting tube feeds of 49 mL an hour with a goal of 49 mL an hour. Currently he is receiving Bumex 1 mg every 8. We'll confirm with nephrology about ongoing need of hemodialysis. Medications are reviewed. Microbiology is negative. Additional recommendations and suggestions are forthcoming. Prognosis remains guarded. Additional recommendations and suggestions are forthcoming. Critical care time is 33 minutes Plan dated 09/29/2018 The patient remains on pressure support of 8 and CPAP of 5 and FiO2 35%. The patient's getting dextrose at 30 mL an hour and tube feeds. He is currently being evaluated for transfer to select specialty. Chest x-ray continues to show a minimal infiltrate left lower lobe and small left-sided pleural effusion. Microbiology is negative. Labs have been reviewed. Medications have been reviewed. Prognosis is guarded. We did ask nephrology yesterday about ongoing dialysis and they planned not to do any more dialysis. We will continue to follow currently. The patient remains on Bumex 1 mg every 8 hours. Prognosis is guarded. His overall situation since I initially saw him during the resuscitation phase and a number of days thereafter, has improved vastly. Critical care time 33 minutes Time with Patient: Greater than 30
[2018-09-29 10:26] VITALS: BMI 38.5
[2018-09-29 12:18] LABS: Glucose,Whole Blood 132 mg/dL (75-99)
--- NOTE | 2018-09-29 15:20 | P.DS ---
Providers Date of admission: 09/08/18 15:01 Expected date of discharge: 09/29/18 Attending physician: MD Dr. Donnell Rachel Consults: 09/08/18 15:01 Consult Physician Routine Consulting Provider: Gregg Sarabia Consult Reason/Comments: pulmonary emboli Do you want consulting provider notified?: Yes 09/09/18 11:28 Consult Physician Stat Consulting Provider: Angel Herndon Consult Reason/Comments: ICU MANAGEMENT Do you want consulting provider notified?: Already Contacted 09/14/18 09:51 Consult Physician Routine Consulting Provider: Samuel Lowery Consult Reason/Comments: acute kidney injury Do you want consulting provider notified?: Yes 09/17/18 12:41 Consult Physician Stat Consulting Provider: Lawrence Johnson Consult Reason/Comments: HD temp cath Do you want consulting provider notified?: Yes 09/22/18 09:16 Consult Physician Routine Consulting Provider: Juan Lawler Consult Reason/Comments: trach and peg Do you want consulting provider notified?: Yes 09/23/18 19:07 Consult Physician Routine Consulting Provider: Rusty Manley Consult Reason/Comments: Encephalopathy Do you want consulting provider notified?: Yes, Notify in am 09/29/18 11:55 Consult Physician Routine Consulting Provider: Betsy Santoyo Consult Reason/Comments: foot/toe wounds Do you want consulting provider notified?: Yes Primary care physician: Janey Patel Hospital Course: Final Diagnoses: Acute cardiopulmonary arrest secondary to to pulmonary embolism. presently has tracheostomy Acute hypercapnic, hypoxic respiratory failure secondary to massive bilateral pulmonary embolism. Status post tracheostomy and PEG tube placement Massive pulmonary embolism with right ventricular strain. Patient was given TPA during CPR Acute hypotension . S/P pressor support. 2-D echocardiogram showed normal LV function acute kidney injury due to ATN. Started on hemodialysis during this hospitalization. Presently on hold, hemodialysis catheter removed. creatinine stable patient is urinating Possible aspiration pneumonia Elevated troponin level secondary to right ventricular strain Acute lower extremity DVT Previous history of smoking Bilateral lower extremity chronic lymphedema Morbid obesity with BMI 43.7 Seborrheic dermatitis history Anxiety morbid obesity Dry gangrene of the left fifth toe probably secondary to norepinephrine he was on. Hospital course:52-year-old male with a known history of chronic bilateral lower extremity lymphedema and history of pulmonary embolism about a year ago, currently not taking Coumadin for the past 6-8 months came to ER with complaints of acute worsening shortness of breath since yesterday. Patient says that he has been having shortness of breath for the last couple of weeks but suddenly got worse yesterday. Patient was told that his DVT and pulmonary embolus was secondary to sedentary lifestyle and sleeping in a sitting position. Patient states he took his Coumadin for about 6 months. He was so several follow-up appointment in November for repeat evaluation however he did not follow-up with that appointment. He stopped his Coumadin in November. Denies any constitutional symptoms. Patient feels much more short of breath with exertion. Chest pain. He feels as though both of his legs are much more edematous than usual suspicion is right lower extremity. Lower extremity duplex scan showed acute DVT right popliteal vein through the proximal calf veins CTA chest showed massive bilateral pulmonary embolism with right ventricular enlargement suggestive of right ventricular strain correlate clinically. A 7 mm and 4 mm right lower lobe pulmonary nodule not seen previous exam subpleural in location could be inflammatory. WBC 14.1 Troponin 0.258 Potassium 5.3 On 09/09/2018 Patient had a brief episode of cardiopulmonary arrest this morning and developed respiratory distress. Subsequently patient was intubated and was transferred to MICU. Patient had a difficult intubation. Patient was given TPA by ER physician. Patient also received multiple doses of epinephrine and sodium bicarbonate. Patient is currently on Levophed drip. Being continued on heparin drip as well. Patient is currently sedated. Initial ABG showed pH 7.0, pCO2 80, pO2 118 Patient was seen by cardiology and pulmonary. 09/10/2018 Patient is currently mechanically ventilated and sedated. Patient is being continued on heparin drip. Continues to be on Levothroid drip. Patient had SVT during cardiopulmonary arrest. Patient was started on amiodarone.. Otherwise hemoglobin dropped to 10.7 today. Continues to have bloody secretions which is being suctioned. Chest x-ray showed bilateral pleural effusion and consolidation. AST 559 and ALT 509 albumin 2.6. Cultures negative so far. Creatinine 1.76. 09/11/2018 52-year-old gentleman with a history of massive bilateral pulmonary embolism right ventricular enlargement and right heart strain. He did receive systemic TPA and was on IV heparin until yesterday which time was turned off because of ongoing bleeding. The patient's overall prognosis remains very guarded. The patient remains on ventilator. Arterial blood gases show a PaO2 of 113 PaCO2 38 and a pH of 7.4. The patient is on saline at 75 mL an hour; Heparin was discontinued yesterday because of ongoing bleeding from the cavity and NG tube. In addition, he's had about a 1 g hemoglobin drop on a daily basis. This morning's hemoglobin is 9.9. 09/12/2018; The patient's overall prognosis remains very guarded. The patient was given a daily interruption of sedation today but could not have a spontaneous breathing trial because he became very tachypnea with respiratory rates above 40. Currently, he is on the volume assist control mode rate of 32, tidal volume 500 , FiO2 35% to be increased to 40% and 5 of PEEP. Arterial blood gases showed a PaO2 of 59 a PaCO2 of 43 and a pH 7.37. That was on 35% FiO2. In addition, the patient's on norepinephrine at 7 mics per minute, propofol at 65 mcg/kg/m, saline IV at 75 mL an hour, heparin via weightbase protocol and vital 1.2 at goal. Chest x-ray shows bilateral effusions with basilar atelectasis and/or infiltrates. On 09/15/2018 Patient currently on mechanical ventilation with assist control and sedation. Patient is being continued on IV heparin. Hemoglobin is 7.5. Renal function slightly worsened with increasing creatinine level 3.56. No active bleeding noted. Chest x-ray showed bilateral pleural effusion and pulmonary vascular congestion. Patient was given a dose of Lasix previously. Patient is currently on antibiotics in the form of Zosyn. 09/16/2018 Patient was seen and examined in the MICU. Currently maintained on mechanical ventilator. Hemoglobin dropped to 5.9 today. 2 units of PRBC was ordered. No signs of active bleeding noted. Patient is being continued on IV heparin. Chest x-ray showed evidence of bilateral consolidation and pleural effusion. Correlate for pulmonary edema and diffuse pneumonia. Currently on Lasix drip. Creatinine level increased to 3.89 today. Otherwise patient is getting empiric antibiotics for possible pneumonia aspiration likely. Patient is being followed by pulmonary cardiology and nephrology. 09/17/2018 Patient is currently on mechanical ventilator. Chest x-ray showed possible fluid overload/pneumonia. Creatinine is trending up at 4.7 today. Hemoglobin is 7.6. Continued on IV heparin. held for permacath placement. Nephrology is planning for hemodialysis. No fever no chills. 09/20/2018 Patient is on mechanical ventilator. Patient is off sedation and is able to blink his eyes. Patient is being continued on hemodialysis. Patient had 3 hemodialysis sessions last one yesterday. Continued on IV antibiotics the form of Zosyn. Leukocytosis slightly improved to 23.7, hemoglobin 9.5 No other acute overnight issues. 09/21/2018 Patient remained on mechanical ventilator. Off sedation and also support. Patient does have slight improvement in mental status. Patient is extremely lethargic and follows simple commands. Hemoglobin is 9.0. Leukocytosis is improved to 17.3. Patient is getting hemodialysis today. Creatinine level IV.82. Chest x-ray showed evidence of congestive heart failure and pleural effusion noted. Patient is afebrile. Blood pressure is maintained. 09/26/2018 Patient is responding to commands patient has a tracheostomy in place. His creatinine has worsened a little bit discussed with the sister at bedside. Patient has weakness secondary to prolonged hospitalization and ICU hospitalization and being on sedation for long time. Decision regarding continuation of hemodialysis will be made on Friday after that patient probably can be discharged to [facility]. Patient is not on ventilator support is on CPAP at this time. 09/27/2018 Patient is doing much better today more awake. Patient is mostly in CPAP occasional ventilatory support. Patient's creatinine marginally improved hopefully may not require dialysis possibly of discharge to [facility] specialty tomorrow. 09/28/2018 Patient is will be dictated dehydrated with the hypovolemic hyponatremia dose of Bumex is being decreased. Increasing the free water through the PEG tube. Creatinine remained stable actually improved compared to yesterday. Urinating well. Close monitoring of renal function. Significant clinical improvement. Patient has been cleared by all consults for discharge. Patient is being discharged to [facility] specialty [place] in a stable condition with guarded prognosis. EXAMINATION: GENERAL: The patient is awake , sitting up in chair ,following commands, moderately obese CARDIOVASCULAR: S1 and S2 present. No murmurs, rubs, or gallops. PULMONARY: Chest is clear to auscultation, no wheezing or crackles. ABDOMEN: Soft, nontender, nondistended, normoactive bowel sounds. No palpable organomegaly. PEG tube presen NEUROLOGICAL: Generalized weakness secondary to hospitalization The impression and plan of care has been dictated as directed. : I performed a history and examination of this patient, discussed the same with the dictator. I agree with the dictator's note ,documented as a scribe. Any additional findings or plans will be noted Time taken: 35 minutes. Patient Condition at Discharge: Stable Plan - Discharge Summary Discharge Rx Participant: No New Discharge Prescriptions: New Calcium Acetate [PhosLo] 667 mg PO TID-W/MEALS cap Chlorhexidine Gluconate [Peridex] 15 ml MUCOUS MEM BID solution hydrALAZINE HCL [Apresoline] 50 mg PO TID tab Insulin Aspart [NovoLOG (formulary)] 0 unit SQ Q6HR vial Ipratropium-Albuterol Nebulize [Duoneb 0.5 mg-3 mg/3 ml Soln] 3 ml INHALATION RT-Q4H ampul.neb Ipratropium-Albuterol Nebulize [Duoneb 0.5 mg-3 mg/3 ml Soln] 3 ml INHALATION RT-Q2H PRN ampul.neb PRN Reason: Shortness Of Breath Or Wheezing Metoprolol Tartrate [Lopressor] 50 mg PO TID tab Non-Formulary Drug [Non Formulary Drug] 1 mg IV BID #1 misc Non-Formulary Drug [Non Formulary Drug] 40 mg IV DAILY #1 misc Rivaroxaban [Xarelto] 15 mg PO BID-W/MEALS tab Non-Formulary Drug [Non Formulary Drug] 1 mg IV Q4H PRN #1 misc PRN Reason: Anxiety Continue Multivitamin,Therapeutic [Thera] 1 tab PO DAILY Discontinued Naproxen Sodium [Aleve] 220 mg PO DAILY Discharge Medication List Multivitamin,Therapeutic [Thera] 1 tab PO DAILY 09/08/18 [History] Calcium Acetate [PhosLo] 667 mg PO TID-W/MEALS cap 09/29/18 [Rx] Chlorhexidine Gluconate [Peridex] 15 ml MUCOUS MEM BID solution 09/29/18 [Rx] Insulin Aspart [NovoLOG (formulary)] 0 unit SQ Q6HR vial 09/29/18 [Rx] Ipratropium-Albuterol Nebulize [Duoneb 0.5 mg-3 mg/3 ml Soln] 3 ml INHALATION RT -Q2H PRN ampul.neb 09/29/18 [Rx] Ipratropium-Albuterol Nebulize [Duoneb 0.5 mg-3 mg/3 ml Soln] 3 ml INHALATION RT -Q4H ampul.neb 09/29/18 [Rx] Metoprolol Tartrate [Lopressor] 50 mg PO TID tab 09/29/18 [Rx] Non-Formulary Drug [Non Formulary Drug] 1 mg IV BID #1 [facility] [place] 09/29/18 [Rx] Non-Formulary Drug [Non Formulary Drug] 1 mg IV Q4H PRN #1 [facility] [place] 09/29/18 [Rx] Non-Formulary Drug [Non Formulary Drug] 40 mg IV DAILY #1 [facility] [place] 09/29/18 [Rx] Rivaroxaban [Xarelto] 15 mg PO BID-W/MEALS tab 09/29/18 [Rx] hydrALAZINE HCL [Apresoline] 50 mg PO TID tab 09/29/18 [Rx] Follow up Appointment(s)/Referral(s): Amanda Toth MD [Primary Care Provider] - 09/16/18 9:40 am (friday) Patient Instructions/Handouts: Pulmonary Embolism (DC), Safe Use of Anticoagulants (DC) Activity/Diet/Wound Care/Special Instructions: cbc,bmp in 2 days Vent settings as per pulmonary
--- NOTE | 2018-09-29 15:24 | P.PN ---
Subjective Progress Note Date: 09/29/18 This patient is seen on neurologic rounds today in the intensive care unit. The patient is showing slight improvement in his degree of alertness. As noted he is status post tracheostomy and PEG tube placement a few days ago. He is tolerating his tube feedings. His creatinine is somewhat worse today as compared to yesterday and nephrology is following him. Family is to have a meeting on Friday to discuss ongoing treatment for the patient including his hemodialysis. Patient is currently on CPAP at night and seems to be tolerating this fairly well. He underwent a routine EEG yesterday which was reviewed and reveals severe slowing with a background of 5 Hz. No epileptiform discharges were seen. These findings are consistent with a severe hypoxic/anoxic encephalopathy following cardiopulmonary arrest. This EEG finding would be consistent with a hypoxic respiratory failure that he likely suffered as well. He is showing significant improvement in his mental status today in that he is able to acknowledge and answer questions by nodding his head. Patient is sitting up in chair at bedside today and is able to answer simple questions. He is showing improvement in his overall mental status for the first time. He is being considered for possible discharge to [facility] specialty either tomorrow or Friday. The patient does appear to be more awake and alert today as compared to yesterday. ICU nursing staff also feel he is showing improvement in his overall mental status. His serum creatinine today is 3.60. His serum creatinine continues to show improvement daily. He is being followed closely by nephrology as well. Plans are for close monitoring of his laboratory test results tomorrow to hopefully avoid hemodialysis treatment for him. At this point Dr. Vasquez does not wish to proceed with hemodialysis for this patient. Neurologically the patient is showing some improvement in his overall mental status as compared to initial evaluation. According to the ICU nursing staff the patient is awaiting transferred to [facility] hopefully today or tomorrow if bed is available. As noted the patient has evidence of a diffuse hypoxic/anoxic encephalopathy which remains stable today. We will continue close neurological follow-up for the patient during this admission. His overall prognosis at this time remains very guarded. Objective - Vital Signs Vital signs: Vital Signs Temp 97.9 F 09/29/18 08:00 Pulse 105 H 09/29/18 11:27 Resp 13 09/29/18 11:00 BP 158/80 09/29/18 11:00 Pulse Ox 100 09/29/18 11:00 Intake & Output 09/28/18 09/29/18 09/29/18 18:59 06:59 18:59 Intake Total 1454 1562 658 Output Total 1947 1416 712 Balance -493 146 -54 Weight 136.1 kg 136.1 kg Intake: IV 406 525 215 Dextrose 5% in Water 1, 240 489 200 000 ml @ 40 mls/hr IV . Q24H [facility] Rx#:[id number] Pressure bag 36 36 15 Sodium Chloride 0.9% 1, 130 000 ml @ 20 mls/hr IV . Q24H [facility] Rx#:[id number] Oral 0 Tube Feeding 588 637 240 Lipid 3 Pressure bag 3 Other 460 400 200 Output: Urine 1944 1415 710 Stool 2 1 2 Other: Voiding Method Indwelling Catheter Indwelling Catheter Indwelling Catheter # Bowel Movements 1 ABP, PAP, CO, CI - Last Documented Arterial Blood Pressure 130/68 - Exam Physical Examination: PHYSICAL EXAMINATION: Patient is resting comfortably in bed. VITAL SIGNS: Blood pressure is [158/80]. Heart rate is [98]. Respiration is [14] . Temperature is [97.9]. HEENT: Head is atraumatic, neck is supple, there were no carotid bruits. CHEST: Lungs are clear to auscultation and percussion. CARDIAC: S1, S2 normal rate and rhythm. There is no murmur. ABDOMEN: Soft and nontender. Bowel sounds are present. EXTREMITIES: There is no pedal edema. Peripheral pulses are present. Neurological examination: Patient's neurological examination is much improved from yesterday. Patient is noted to be sitting in a chair at bedside. He is much more awake and alert today and is following all commands. He remains status post tracheostomy and PEG tube placement in the intensive care unit. He is showing slight improvement in his mental status today. He is awaiting possible transfer to select specialty. Patient is showing improvement in his overall neurological status today. - Labs CBC & Chem 7: 09/29/18 04:25 09/29/18 04:25 Labs: Abnormal Lab Results - Last 24 Hours (Table) 09/28/18 09/28/18 09/28/18 Range/Units 18:07 19:40 23:52 RBC (4.30-5.90) m/uL Hgb (13.0-17.5) gm/dL Hct (39.0-53.0) % MCHC (31.0-37.0) g/dL RDW (11.5-15.5) % Plt Count (150-450) k/uL ABG pCO2 (35-45) mmHg ABG pO2 (83-108) mmHg ABG HCO3 (21-25) mmol/L ABG Total CO2 (19-24) mmol/L ABG O2 Saturation (94-97) % Sodium 151 H (137-145) mmol/L Chloride (98-107) mmol/L Carbon Dioxide (22-30) mmol/L BUN (9-20) mg/dL Creatinine (0.66-1.25) mg/dL Glucose (74-99) mg/dL POC Glucose (mg/dL) 106 H 140 H (75-99) mg/dL Phosphorus (2.5-4.5) mg/dL Magnesium (1.6-2.3) mg/dL 09/29/18 09/29/18 09/29/18 Range/Units 04:25 04:25 04:45 RBC 3.56 L (4.30-5.90) m/uL Hgb 10.3 L (13.0-17.5) gm/dL Hct 34.3 L (39.0-53.0) % MCHC 30.0 L (31.0-37.0) g/dL RDW 15.7 H (11.5-15.5) % Plt Count 454 H (150-450) k/uL ABG pCO2 56 H (35-45) mmHg ABG pO2 118 H (83-108) mmHg ABG HCO3 34 H (21-25) mmol/L ABG Total CO2 36 H (19-24) mmol/L ABG O2 Saturation 98.5 H (94-97) % Sodium 150 H (137-145) mmol/L Chloride 110 H (98-107) mmol/L Carbon Dioxide 32 H (22-30) mmol/L BUN 97 H (9-20) mg/dL Creatinine 3.60 H (0.66-1.25) mg/dL Glucose 133 H (74-99) mg/dL POC Glucose (mg/dL) (75-99) mg/dL Phosphorus 5.7 H (2.5-4.5) mg/dL Magnesium 2.6 H (1.6-2.3) mg/dL 09/29/18 09/29/18 Range/Units 06:26 12:06 RBC (4.30-5.90) m/uL Hgb (13.0-17.5) gm/dL Hct (39.0-53.0) % MCHC (31.0-37.0) g/dL RDW (11.5-15.5) % Plt Count (150-450) k/uL ABG pCO2 (35-45) mmHg ABG pO2 (83-108) mmHg ABG HCO3 (21-25) mmol/L ABG Total CO2 (19-24) mmol/L ABG O2 Saturation (94-97) % Sodium (137-145) mmol/L Chloride (98-107) mmol/L Carbon Dioxide (22-30) mmol/L BUN (9-20) mg/dL Creatinine (0.66-1.25) mg/dL Glucose (74-99) mg/dL POC Glucose (mg/dL) 125 H 132 H (75-99) mg/dL Phosphorus (2.5-4.5) mg/dL Magnesium (1.6-2.3) mg/dL Assessment and Plan (1) Acute metabolic encephalopathy Current Visit: Yes Status: Acute Code(s): G93.41 - METABOLIC ENCEPHALOPATHY SNOMED Code(s): 89099560 (2) Pulmonary embolism Current Visit: Yes Status: Acute Code(s): I26.99 - OTHER PULMONARY EMBOLISM WITHOUT ACUTE COR PULMONALE SNOMED Code(s): 90062908 (3) Congestive heart failure (CHF) Current Visit: No Status: Acute Code(s): I50.9 - HEART FAILURE, UNSPECIFIED SNOMED Code(s): 72756928 (4) DVT (deep venous thrombosis) Current Visit: No Status: Acute Code(s): I82.409 - ACUTE EMBOLISM AND THOMBOS UNSP DEEP VN UNSP LOWER EXTREMITY SNOMED Code(s): 432184631 (5) Obesity Current Visit: No Status: Acute Code(s): E66.9 - OBESITY, UNSPECIFIED SNOMED Code(s): 845601397 Plan: This patient is a 52-year-old male status post massive bilateral pulmonary embolism with cardiopulmonary arrest. Patient was initially intubated and then extubated with tracheostomy and PEG tube placement. Patient had day clear evidence for a hypoxic/anoxic injury given his cardiopulmonary arrest situation. He has been making slow progress in the intensive care unit and is noted to have undergone a tracheostomy and PEG tube placement. He has remained very lethargic since extubation. He is showing slight improvement today in terms of his mental status and he does seem to follow simple commands. He is being followed by multiple specialists. His routine EEG which was recently performed reveals severe slowing consistent with a hypoxic/anoxic encephalopathy. His overall prognosis at this time remains very guarded. We will continue to follow his progress closely in the intensive care unit. Primary care physician is working on possible discharge to select specialty in the next few days. His overall prognosis at this time remains very guarded. We will continue to follow him closely in the intensive care unit. We will reassess him tomorrow to see if he continues to show slight improvement. The patient is noted be sitting up in chair next to his bedside today. He is showing improvement in his mental status today for the first time. As noted he is awaiting possible discharge to select specialty either today or tomorrow. His serum creatinine today is 3.60 and his BUN is 91. His laboratory testing for C. difficile came back negative. Patient is being considered for possible transfer to select specialty possibly tomorrow. Dr. Vasquez has seen the patient for nephrology consultation. Plans are not to proceed with any hemodialysis for this patient at this time. The patient does show improvement today in terms of his overall mental status. He does seem to be more alert and is following simple commands. As noted he is being considered for possible discharge to select specialty either tomorrow or Friday. Once again his overall prognosis at this time remains very guarded.
[2018-09-29 16:18] VITALS: TEMP 98.5
[2018-09-29] MEDS: MULTIVITAMINS, THERA 1 EACH TAB PO SCH ×2 (16:44→16:47)
[2018-09-29] MEDS ORDERED: DEXTROSE 5% IN WATER 1,000 ML IV ONE (17:06)
[2018-09-29 17:27] LABS: Glucose,Whole Blood 131 mg/dL (75-99)
[2018-09-29 18:23] VITALS: BP 141/63; PULSE 73; RESP 16
--- NOTE | 2018-09-29 21:03 | PN ---
PROGRESS NOTE Patient was seen this morning. He is comfortable, is sitting in a bedside chair. Urine output remains excellent at about 75-100 mL an hour. Serum creatinine has decreased to 3.6 mg/dL. Patient remains off of dialysis. PHYSICAL EXAMINATION: Blood pressure was 136/68. The patient is afebrile. Heart rate about 112 per minute. Examination of the heart: S1, S2. Examination of the lungs: Bilateral breath sounds are heard. Abdomen is soft. Examination of the lower extremities shows chronic skin changes. Edema is noted, slowly improving. LABS: Sodium 150, potassium 4.3, chloride 110, BUN 97, serum creatinine 3.6, hemoglobin 10.3 g/dL. ASSESSMENT: 1. Acute kidney injury, acute tubular necrosis, currently nonoliguric with previous treatments of hemodialysis, currently off of dialysis with renal function improving and continue to maintain patient off of dialysis. 2. Hypernatremia associated with free water deficit, maintained on free water down the feeding tube and the maintenance IV is also changed to D5W yesterday. 3. Severe volume overload, currently slowly improving. Bumex was decreased to q.12 hours. 4. Hypoxic respiratory failure, currently on trach collar, maintained on intermittent ventilation. 5. Status post cardiac arrest. 6. History of bilateral pulmonary embolism, maintained on anticoagulation. PLAN: Continue with current dose of Bumex. Repeat labs in a.m. Continue off of dialysis. MMODL / IJN: [id number] /
--- NOTE | 2018-09-30 00:15 | CONS ---
CONSULTATION DATE OF SERVICE: 09/29/2018. REASON FOR CONSULTATION: Bilateral feet wound. HISTORY OF PRESENT ILLNESS: The patient is a 52-year-old male who initially presented to the [facility] 09/05/2018. The patient with difficulty in breathing. The patient did have evidence of a massive bilateral PE with right rotator cuff strain. Subsequently the patient did have a cardiac arrest, has been transferred to intensive care unit. The patient did have a prolonged ventilatory support requiring a trach . The patient also developed renal failure for which the patient has been temporarily on hemodialysis. Currently off hemodialysis. The patient during this hospital stay has developed lesions on both of his feet on the right foot plantar aspect, at the base of the 4th and 5th metatarsal and left fifth toe. who provided most of the history was not sure exactly when this started. There is no clear history of any trauma or any pressure related. Currently being treated with Medihoney by the admitting team. I was asked to see the patient today for further care associated with it and need for antibiotic therapy. The patient himself is currently afebrile. The patient denies significant pain to both feet wound area. There is no drainage from it and no surrounding swelling, redness or any foul smelling. The patient has been afebrile and no elevated white count. REVIEW OF SYSTEMS: Constitutional: Positive for weakness but no high-grade fever. Eyes no complaint. ENT no complaint. Respiratory: Shortness of breath. Cardiovascular no complaint. Genitourinary no complaint. Gastrointestinal: No complaint. Musculoskeletal: No complaint. Integumentary: As per HPI. Psychological no complaint. Endocrine no complaint. Neurologic no complaint. PAST MEDICAL HISTORY: DVT, pulmonary embolism, , bilateral lower leg lymphedema, anxiety. PAST SURGICAL HISTORY: Cholecystectomy and left Achilles tendon repair, umbilical hernia repair. SOCIAL HISTORY: Remote history of smoking. No drinking or drug use. FAMILY HISTORY: Brother with history of PE. Mother history of COPD and pneumonia. Father history of MD, at age of 64. ALLERGIES: No known drug allergies. MEDICATIONS: Medications include the patient is currently on DuoNeb, Bumex, PhosLo, hydralazine, Dilaudid, NovoLog, Lopressor, Theragran, Narcan, Protonix, Xarelto, and K-Lyte. EXAMINATION: Blood pressure is 141/53 with a pulse of 73, temperature 98. He is 99% on trach collar. General description is a middle aged male up in the chair in no distress. No tachypnea or accessory muscles of respiration use. HEENT: Shows pallor. No scleral icterus. Oral mucous membranes dry. No pharyngeal erythema or thrush. Neck trachea central. . LUNGS: Unlabored breathing with decreased breath sounds. No wheeze or crackles. Heart S1, S2. Regular rate and rhythm. Abdomen soft, no tenderness. Extremities: Bilateral feet with swelling, no cellulitis. Examination on the right foot plantar aspect he did have a blister with more of a bruise, did have some surrounding bright red blood. No purulence was noticed. No redness and no drainage on the left fifth toe seems to have a ruptured blister with superficial wound on the medial aspect of the 5th toe but no cellulitis. Neurological: Patient is awake, alert, oriented times three. Mood and affect normal. LABS: Hemoglobin is 10.1, white count 9.0, BUN of 97, creatinine 3.60. The patient did have blood and sputum cultures during this admission that have been negative. DIAGNOSTIC IMPRESSION: The patient with bilateral fifth toe wound, questionable pressure related more likely with no evidence of any cellulitis. Right foot is more of a blister with surrounding redness, but no evidence of any purulence or cellulitis. Recommend local wound care. Left 5th toe medial wound. Also seems to be a left foot 5th medial wound also seemed to be a ruptured blister with no evidence of any cellulitis. Recommend local wound care. PLAN: 1. We will recommend to keep the right foot wound dry. No need for and keep the area off the pressure. 2. Left 5th toe medial wound care with Aquacel Silver dressing. 3. No need for systematic antibiotic therapy. 4. Advise patient to be evaluated with wound care nurse or physician while he is at the [facility]. This was discussed in detail with the patient as well as the patient . All questions were answered. MMODL / IJN: [id number] /
== END 2018-09-29 20:08 | DRG 4 ==
LOC: EC 09:48 → 3SCARD 15:01 → EEVIPCON 15:01 → 3SCARD 17:37 → 2SICU 09-09 09:36
PROVIDERS: ADMIT Internal Medicine; ATTEND Internal Medicine
PROC: 5A1955Z Respiratory Ventilation, Greater than 96 Consecutive Hours (ICD-10-PCS; principal; 2018-09-08)
PROC: 3E03317 Introduction of Other Thrombolytic into Peripheral Vein, Percutaneous Approach (ICD-10-PCS; principal; 2018-09-08)
PROC: 0BH18EZ Insertion of Endotracheal Airway into Trachea, Via Natural or Artificial Opening Endoscopic (ICD-10-PCS; principal; 2018-09-08)
PROC: 4A133J1 Monitoring of Arterial Pulse, Peripheral, Percutaneous Approach (ICD-10-PCS; 2018-09-09)
PROC: 4A133B1 Monitoring of Arterial Pressure, Peripheral, Percutaneous Approach (ICD-10-PCS; 2018-09-09)
PROC: 04HY32Z Insertion of Monitoring Device into Lower Artery, Percutaneous Approach (ICD-10-PCS; 2018-09-09)
PROC: 02H633Z Insertion of Infusion Device into Right Atrium, Percutaneous Approach (ICD-10-PCS; 2018-09-09)
PROC: 30233N1 Transfusion of Nonautologous Red Blood Cells into Peripheral Vein, Percutaneous Approach (ICD-10-PCS; 2018-09-16)
PROC: 02HV33Z Insertion of Infusion Device into Superior Vena Cava, Percutaneous Approach (ICD-10-PCS; 2018-09-17)
PROC: 5A1D70Z Performance of Urinary Filtration, Intermittent, Less than 6 Hours Per Day (ICD-10-PCS; 2018-09-18)
PROC: 0DH63UZ Insertion of Feeding Device into Stomach, Percutaneous Approach (ICD-10-PCS; 2018-09-23)
PROC: 0B110F4 Bypass Trachea to Cutaneous with Tracheostomy Device, Open Approach (ICD-10-PCS; 2018-09-23)
DX: I26.09 Other pulmonary embolism with acute cor pulmonale (principal); G93.41 Metabolic encephalopathy; J69.0 Pneumonitis due to inhalation of food and vomit; J96.01 Acute respiratory failure with hypoxia; J96.02 Acute respiratory failure with hypercapnia; N17.0 Acute kidney failure with tubular necrosis; R57.0 Cardiogenic shock; D62 Acute posthemorrhagic anemia; E44.0 Moderate protein-calorie malnutrition; E87.0 Hyperosmolality and hypernatremia; E87.1 Hypo-osmolality and hyponatremia; E87.2 Acidosis; G62.81 Critical illness polyneuropathy; G93.1 Anoxic brain damage, not elsewhere classified; I13.0 Hypertensive heart and chronic kidney disease with heart failure and stage 1 through stage 4 chronic kidney disease, or unspecified chronic kidney disease; I47.1 Supraventricular tachycardia; I82.431 Acute embolism and thrombosis of right popliteal vein; J98.11 Atelectasis; Z68.42 Body mass index [BMI] 45.0-49.9, adult; Z99.11 Dependence on respirator [ventilator] status; E66.01 Morbid (severe) obesity due to excess calories; E83.39 Other disorders of phosphorus metabolism; E86.0 Dehydration; E87.6 Hypokalemia; I50.9 Heart failure, unspecified; I89.0 Lymphedema, not elsewhere classified; L21.9 Seborrheic dermatitis, unspecified; N18.3 Chronic kidney disease, stage 3 (moderate); S91.301A Unspecified open wound, right foot, initial encounter; S91.302A Unspecified open wound, left foot, initial encounter; T50.2X5A Adverse effect of carbonic-anhydrase inhibitors, benzothiadiazides and other diuretics, initial encounter; T88.4XXA Failed or difficult intubation, initial encounter; Z79.01 Long term (current) use of anticoagulants; Z79.4 Long term (current) use of insulin; Z82.49 Family history of ischemic heart disease and other diseases of the circulatory system; Z82.5 Family history of asthma and other chronic lower respiratory diseases; Z83.2 Family history of diseases of the blood and blood-forming organs and certain disorders involving the immune mechanism; Z86.711 Personal history of pulmonary embolism; Z86.718 Personal history of other venous thrombosis and embolism; Z87.891 Personal history of nicotine dependence; Z90.49 Acquired absence of other specified parts of digestive tract; Z79.899 Other long term (current) drug therapy; T44.4X5A Adverse effect of predominantly alpha-adrenoreceptor agonists, initial encounter
CPT/HCPCS: 36415; 36600; 43246; 70450; 71045; 71046; 71275; 76770; 80048; 80053; 81001; 82272; 82533; 82550; 82553; 82805; 83036; 83735; 83880; 84100; 84132; 84295; 84439; 84443; 84484; 85025; 85027; 85610; 85730; 86704; 86706; 86850; 86900; 86901; 86920; 87040; 87070; 87086; 87205; 87324; 87340; 90935; 93005; 93306; 93970; 94002; 94003; 94640; 94760; 95816; 96361; 96365; 96366; 96376; 99285

== ENCOUNTER 2018-10-20 09:27 | Observation (INO) | payer OTHER ==
[2018-10-20] MEDS ORDERED: SODIUM CHLORIDE 0.9% 500 ML 500 ML IV STA (09:41)
--- NOTE | 2018-10-20 09:45 | ED ---
General Adult HPI - General Chief complaint: Arrhythmia/Palpitations Stated complaint: caridac Time Seen by Provider: 10/20/18 09:27 Source: patient, RN notes reviewed Mode of arrival: ambulatory Limitations: no limitations - History of Present Illness Initial comments: This is a 52-year-old male who presents emergency department with past medical history significant for PEs. Patient states he is on Xarelto. Patient also states he had a acid heart attack and was trached and had a PEG tube placed. Patient states trach was removed 2 weeks ago. Patient states the last few days he hasn't been feeling good and has been having some nausea vomiting diarrhea. Patient states this morning he started to feel extremely lightheaded felt his heart fluttering and then vomited. Patient states he felt as though he needed to have a bowel movement but was unable to go. EMS arrived realizes heart rate was in excess of 180 eventually got a rhythm strip on realizes he was in SVT and gave him adenosine. Patient states he adenosine immediately helped him EMS reported that the patient's heart rate converted to a sinus rhythm immediately after the adenosine was given. Patient's blood pressure remained stable the whole time. Patient currently has no complaints however while this was occurring patient stated he did have some left-sided chest pain. And some mild shortness of breath. - Related Data Home Medications Medication Instructions Recorded Confirmed Multivitamin,Therapeutic [Thera] 1 tab PO DAILY 09/08/18 10/20/18 Pantoprazole Sodium [Protonix] 20 mg PO DAILY 10/20/18 10/20/18 QUEtiapine FUMARATE 25 mg PO HS 10/20/18 10/20/18 Rivaroxaban [Xarelto] 15 mg PO HS 10/20/18 10/20/18 Sertraline [Zoloft] 50 mg PO DAILY 10/20/18 10/20/18 Previous Rx's Medication Instructions Recorded Metoprolol Tartrate [Lopressor] 50 mg PO TID tab 09/29/18 Allergies Allergy/AdvReac Type Severity Reaction Status Date / Time No Known Allergies Allergy Verified 09/08/18 11:26 Review of Systems ROS Statement: Those systems with pertinent positive or pertinent negative responses have been documented in the HPI. ROS Other: All systems not noted in ROS Statement are negative. Past Medical History Past Medical History: Deep Vein Thrombosis (DVT), Pulmonary Embolus (PE) Additional Past Medical History / Comment(s): x-smoker, seborrheic dermatitits, keyur leg lympg edema, anxiety History of Any Multi-Drug Resistant Organisms: None Reported Past Surgical History: Cholecystectomy, Hernia Repair Additional Past Surgical History / Comment(s): left achillies tendon repair 1974 , umb hernia repair Past Anesthesia/Blood Transfusion Reactions: No Reported Reaction Past Psychological History: Anxiety Smoking Status: Former smoker - Past Family History Brother(s) Family Medical History: Pulmonary Embolus Additional Family Medical History / Comment(s): CABG Mother Family Medical History: COPD, Pneumonia Additional Family Medical History / Comment(s): non-smoker. at age 89 Father Family Medical History: Myocardial Infarction ([place]) Additional Family Medical History / Comment(s): smoker, mi - age 64 General Exam - General Exam Comments Initial Comments: GENERAL: Patient is well-developed and well-nourished. Patient is nontoxic and well- hydrated and is in mild distress. ENT: Neck is soft and supple. No significant lymphadenopathy is noted. Oropharynx is clear. Moist mucous membranes. Neck has full range of motion without eliciting any pain. EYES: The sclera were anicteric and conjunctiva were pink and moist. Extraocular movements were intact and pupils were equal round and reactive to light. Eyelids were unremarkable. PULMONARY: Unlabored respirations. Good breath sounds bilaterally. No audible rales rhonchi or wheezing was noted. CARDIOVASCULAR: Patient is tachycardic at about 110 beats a minute. Patient has some bruising that appears to be old on the anterior chest ABDOMEN: Soft and nontender with normal bowel sounds. No palpable organomegaly was noted. There is no palpable pulsatile mass. SKIN: Skin is clear with no lesions or rashes and otherwise unremarkable. NEUROLOGIC: Patient is alert and oriented x3. Cranial nerves II through XII are grossly intact. Motor and sensory are also intact. Normal speech, volume and content. Symmetrical smile. MUSCULOSKELETAL: Normal extremities with adequate strength and full range of motion. 2+ edema LYMPHATICS: No significant lymphadenopathy is noted PSYCHIATRIC: Normal psychiatric evaluation. 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 I reviewed EMS is rhythm strips and it did show what appeared to be SVT and conversion after the adenosine to a sinus rhythm. - Lab Data Result diagrams: 10/20/18 09:40 10/20/18 09:40 Lab Results 10/20/18 10/20/18 10/20/18 Range/Units 09:40 09:40 09:40 WBC 9.2 (3.8-10.6) k/uL RBC 3.40 L (4.30-5.90) m/uL Hgb 10.4 L (13.0-17.5) gm/dL Hct 32.3 L (39.0-53.0) % MCV 94.9 (80.0-100.0) fL MCH 30.6 (25.0-35.0) pg MCHC 32.3 (31.0-37.0) g/dL RDW 16.4 H (11.5-15.5) % Plt Count 435 (150-450) k/uL Neutrophils % 79 % Lymphocytes % 12 % Monocytes % 5 % Eosinophils % 2 % Basophils % 1 % Neutrophils # 7.2 (1.3-7.7) k/uL Lymphocytes # 1.1 (1.0-4.8) k/uL Monocytes # 0.5 (0-1.0) k/uL Eosinophils # 0.2 (0-0.7) k/uL Basophils # 0.1 (0-0.2) k/uL Hypochromasia Slight Anisocytosis Slight PT (9.0-12.0) sec INR (<1.2) APTT (22.0-30.0) sec Sodium 142 (137-145) mmol/L Potassium 4.3 (3.5-5.1) mmol/L Chloride 107 (98-107) mmol/L Carbon Dioxide 22 (22-30) mmol/L Anion Gap 13 mmol/L BUN 14 (9-20) mg/dL Creatinine 2.15 H (0.66-1.25) mg/dL Est GFR (CKD-EPI)AfAm 39 (>60 ml/min/1.73 sqM) Est GFR (CKD-EPI)NonAf 34 (>60 ml/min/1.73 sqM) Glucose 100 H (74-99) mg/dL Calcium 8.4 (8.4-10.2) mg/dL Magnesium 1.6 (1.6-2.3) mg/dL Total Bilirubin 0.8 (0.2-1.3) mg/dL AST 45 (17-59) U/L ALT 31 (21-72) U/L Alkaline Phosphatase 88 (38-126) U/L Total Creatine Kinase 54 L (55-170) U/L CK-MB (CK-2) 0.6 (0.0-2.4) ng/mL CK-MB (CK-2) Rel Index 1.1 Troponin I <0.012 (0.000-0.034) ng/mL Total Protein 7.4 (6.3-8.2) g/dL Albumin 3.7 (3.5-5.0) g/dL TSH 3.430 (0.465-4.680) mIU/L Free T4 1.77 (0.78-2.19) ng/dL 10/20/18 Range/Units 09:40 WBC (3.8-10.6) k/uL RBC (4.30-5.90) m/uL Hgb (13.0-17.5) gm/dL Hct (39.0-53.0) % MCV (80.0-100.0) fL MCH (25.0-35.0) pg MCHC (31.0-37.0) g/dL RDW (11.5-15.5) % Plt Count (150-450) k/uL Neutrophils % % Lymphocytes % % Monocytes % % Eosinophils % % Basophils % % Neutrophils # (1.3-7.7) k/uL Lymphocytes # (1.0-4.8) k/uL Monocytes # (0-1.0) k/uL Eosinophils # (0-0.7) k/uL Basophils # (0-0.2) k/uL Hypochromasia Anisocytosis PT 11.9 (9.0-12.0) sec INR 1.3 H (<1.2) APTT 27.3 (22.0-30.0) sec Sodium (137-145) mmol/L Potassium (3.5-5.1) mmol/L Chloride (98-107) mmol/L Carbon Dioxide (22-30) mmol/L Anion Gap mmol/L BUN (9-20) mg/dL Creatinine (0.66-1.25) mg/dL Est GFR (CKD-EPI)AfAm (>60 ml/min/1.73 sqM) Est GFR (CKD-EPI)NonAf (>60 ml/min/1.73 sqM) Glucose (74-99) mg/dL Calcium (8.4-10.2) mg/dL Magnesium (1.6-2.3) mg/dL Total Bilirubin (0.2-1.3) mg/dL AST (17-59) U/L ALT (21-72) U/L Alkaline Phosphatase (38-126) U/L Total Creatine Kinase (55-170) U/L CK-MB (CK-2) (0.0-2.4) ng/mL CK-MB (CK-2) Rel Index Troponin I (0.000-0.034) ng/mL Total Protein (6.3-8.2) g/dL Albumin (3.5-5.0) g/dL TSH (0.465-4.680) mIU/L Free T4 (0.78-2.19) ng/dL Disposition Clinical Impression: SVT (supraventricular tachycardia), Chest pain Disposition: ADMITTED IP TO THIS HOSP Referrals: Amanda Toth MD [Primary Care Provider] - 1-2 days Time of Disposition: 11:57
--- NOTE | 2018-10-20 10:05 | XR ---
EXAMINATION TYPE: XR chest 2V DATE OF EXAM: 10/20/2018 COMPARISON: 09/29/2018 HISTORY: Shortness of breath TECHNIQUE: Frontal and lateral views of the chest are obtained. FINDINGS: Scattered senescent parenchymal changes noted. Chronic scarring right medial lung base. No evidence for infiltrate. No evidence for atelectasis. Heart size is stable. Mediastinal structures are stable and grossly unremarkable. No evidence for hilar prominence. Degenerative changes dorsal spine. IMPRESSION: 1. No evidence for acute pulmonary disease.
[2018-10-20 10:08] LABS: INR 1.3 (<1.2); Partial Thromboplastin Time 27.3 sec (22.0-30.0); Prothrombin Time 11.9 sec (9.0-12.0)
[2018-10-20 10:10] LABS: Albumin 3.7 g/dL (3.5-5.0); Calcium 8.4 mg/dL (8.4-10.2); Total Bilirubin 0.8 mg/dL (0.2-1.3); Total Protein 7.4 g/dL (6.3-8.2)
[2018-10-20 10:17] LABS: Magnesium 1.6 mg/dL (1.6-2.3); Potassium 4.3 mmol/L (3.5-5.1)
[2018-10-20 10:26] LABS: T4, Free (Free Thyroxine) 1.77 ng/dL (0.78-2.19)
[2018-10-20 10:29] LABS: Creatine Kinase 54 U/L (55-170)
[2018-10-20 10:31] LABS: Anisocytosis Slight; Basophils # (A) 0.1 k/uL (0-0.2); Basophils % (A) 1 %; Eosinophils # (A) 0.2 k/uL (0-0.7); Eosinophils % (A) 2 %; HCT 32.3 % (39.0-53.0); HGB 10.4 gm/dL (13.0-17.5); Hypochromasia Slight; Lymphocytes # (A) 1.1 k/uL (1.0-4.8); Lymphocytes % (A) 12 %; MCH 30.6 pg (25.0-35.0); MCHC 32.3 g/dL (31.0-37.0); MCV 94.9 fL (80.0-100.0); Mean Platelet Volume 8.5; Monocytes # (A) 0.5 k/uL (0-1.0); Monocytes % (A) 5 %; Neutrophils # (A) 7.2 k/uL (1.3-7.7); Neutrophils % (A) 79 %; Platelet Count 435 k/uL (150-450); RDW 16.4 % (11.5-15.5); WBC 9.2 k/uL (3.8-10.6)
[2018-10-20 10:41] LABS: Creatine Kinase MB 0.6 ng/mL (0.0-2.4); Troponin I <0.012 ng/mL (0.000-0.034)
[2018-10-20] MEDS ORDERED: NITROGLYCERIN SL TABS 0.4 MG TAB SUBLINGUAL PRN (11:58)
[2018-10-20 15:36] VITALS: BMI 39.1
[2018-10-20] MEDS: NITROGLYCERIN OINT 1 INCH/GM PACKET TOPICAL SCH ×3 (16:03→23:06)
[2018-10-20] MEDS: METOPROLOL TARTRATE 50 MG TAB PO SCH ×2 (16:39→20:48)
[2018-10-20 16:43] LABS: Creatine Kinase MB 0.6 ng/mL (0.0-2.4); Troponin I 0.021 ng/mL (0.000-0.034)
[2018-10-20] MEDS: QUEtiapine 25 MG TAB PO SCH (20:48)
[2018-10-20] MEDS: RIVAROXABAN 15 MG TAB PO SCH (20:48)
[2018-10-20] MEDS ORDERED: MELATONIN 3 MG TABLET PO PRN (21:08)
[2018-10-20] MEDS ORDERED: ACETAMINOPHEN TAB 500 MG TAB PO PRN (21:08)
[2018-10-20] MEDS ORDERED: LORazepam 0.5 MG TAB PO PRN (21:08)
[2018-10-20] MEDS ORDERED: HYDROcodone/APAP 5-325MG 1 EACH TAB PO PRN (21:08)
--- NOTE | 2018-10-20 22:50 | HP ---
HISTORY AND PHYSICAL CHIEF COMPLAINTS: Dizziness and fluttering in the chest. HISTORY OF PRESENT ILLNESS: This 52-year-old gentleman with a past medical history of multiple medical issues, including history of recent DVT, history of pulmonary embolism, seborrheic dermatitis, anxiety, cholecystectomy, being followed by Dr. Toth in the outpatient setting, was recently admitted to [facility] with a massive pulmonary embolism. The patient had an episode of cardiac arrest and the patient was mechanically ventilated. The patient also had a PEG tube and tracheostomy done. Currently the tracheostomy is closed off by Pulmonary. The PEG tube is still in situ, but the patient is not using it. Today the patient had fluttering in the chest and dizziness. The patient came to [facility] and was admitted for evaluation and treatment. The patient was not feeling well, and he has some nausea and vomiting also. The heart rate was found to be more than 180 and SVT was diagnosed. Adenosine was given. The patient was taken to [facility] and admitted for further evaluation and treatment. A 2-D echo was done during the previous admission. The most recent 2D echo done on 09/09/2018 showed an ejection fraction of 60% to 65% and mild valvular abnormalities. Right ventricular strain was also noted. There is no history of any fever, rigor or chills. No history of headache, loss of consciousness, seizures. PAST MEDICAL HISTORY: 1. History of recent pulmonary embolism. 2. Tracheostomy. 3. Respiratory failure. 4. PEG tube placement. 5. Smoking. 6. History of cholecystectomy. 7. Anxiety. HOME MEDICATIONS: 1. Xarelto 15 mg at bedtime. 2. Seroquel 25 mg at bedtime. 3. Lopressor 50 mg p.o. t.i.d. 4. Zoloft 50 mg p.o. daily. 5. Protonix 20 mg daily. 6. Multivitamins 1 p.o. daily. ALLERGIES: NONE. FAMILY HISTORY: History of pulmonary embolism, CABG in the family. SOCIAL HISTORY: Previous history of smoking. No current smoking or alcohol intake. REVIEW OF SYSTEMS: ENT: Diminished hearing. Diminished vision. CARDIOVASCULAR SYSTEM: No angina, palpitations. RESPIRATORY SYSTEM: As mentioned earlier. GI: No nausea, vomiting. : No dysuria or retention. NERVOUS SYSTEM: No numbness, weakness. ALLERGY/IMMUNOLOGY: No asthma, hayfever. MUSCULOSKELETAL: As mentioned earlier. HEMATOLOGY/ONCOLOGY: As mentioned earlier. ENDOCRINE: As mentioned earlier. CONSTITUTIONAL: As mentioned earlier. DERMATOLOGY: Negative. RHEUMATOLOGY: Negative. PSYCHIATRY: As mentioned earlier. PHYSICAL EXAMINATION: Patient alert and oriented x3. Pulse 76, blood pressure 133/83, respirations 16, temperature 99 degrees, pulse ox 97% on room air. HEENT: Conjunctivae normal. Oral mucosa moist. NECK: No jugular venous distention. No carotid bruit. No lymph node enlargement. CARDIOVASCULAR SYSTEM: S1, S2 muffled. RESPIRATORY SYSTEM: Breath sounds diminished at the bases. Scattered rhonchi and crackles. ABDOMEN: Soft, non-tender. No mass palpable. LEGS: No edema. No swelling. NERVOUS SYSTEM: Higher functions as mentioned earlier. Moves all 4 limbs. No focal motor or sensory deficit. LYMPHATICS: No lymph node palpable in neck, axillae or groin. SKIN: No ulcer, rash, bleeding. LABS: WBC 9.2, hemoglobin 10.4, INR is 1.3. Creatinine is 2.15. ASSESSMENT: 1. Acute supraventricular tachycardia. 2. Rule out coronary artery disease. 3. Chronic kidney disease, stage III. 4. Anemia, normocytic; anemia of chronic disease. 5. History of recent massive pulmonary embolism and right ventricular strain. 6. History of recent acute respiratory failure secondary to pulmonary embolism. 7. History of deep vein thrombosis. 8. Status post tracheostomy, being closed off. 9. Status post PEG tube placement. 10.History of seborrheic dermatitis. 11.History of nicotine dependence. 12.History of anxiety. 13.History of cholecystectomy. 14.History of hernia repair. 15.History of ethanol. RECOMMENDATIONS AND DISCUSSION: In this 52-year-old gentleman with a past medical history of multiple medical problems, we will monitor the patient closely, continue the current management, continue symptomatic treatment. Otherwise at this time I recommend continuing with current medications. Continue with beta blockers. Continue Xarelto. I would recommend a cardiology consultation. Resume the home medications. A 2D echo will be repeated. A set of troponins will also be repeated. The patient will undergo further cardiac workup. Prognosis guarded. Further recommendations to follow. See orders for further details. MMODL / IJN: [id number] /
[2018-10-20 23:48] LABS: Creatine Kinase MB 0.7 ng/mL (0.0-2.4); Troponin I 0.021 ng/mL (0.000-0.034)
[2018-10-21] MEDS: NITROGLYCERIN OINT 1 INCH/GM PACKET TOPICAL SCH (06:28)
[2018-10-21] MEDS: PANTOPRAZOLE 40 MG TABLET PO SCH (06:29)
[2018-10-21 06:42] LABS: Anisocytosis Slight; Basophils # (A) 0.1 k/uL (0-0.2); Basophils % (A) 1 %; Eosinophils # (A) 0.4 k/uL (0-0.7); Eosinophils % (A) 6 %; HCT 32.1 % (39.0-53.0); HGB 10.3 gm/dL (13.0-17.5); Hypochromasia Slight; Lymphocytes % (A) 29 %; MCV 93.9 fL (80.0-100.0); Mean Platelet Volume 6.5; Monocytes # (A) 0.4 k/uL (0-1.0); Monocytes % (A) 6 %; Neutrophils # (A) 3.9 k/uL (1.3-7.7); Neutrophils % (A) 56 %; Platelet Count 349 k/uL (150-450); RBC 3.42 m/uL (4.30-5.90); RDW 16.1 % (11.5-15.5)
[2018-10-21 07:09] LABS: Calcium 8.7 mg/dL (8.4-10.2); Potassium 3.8 mmol/L (3.5-5.1)
[2018-10-21] MEDS: IPRATROPIUM-ALBUTEROL 3 ML NEB INHALATION SCH ×3 (07:43→20:10)
[2018-10-21] MEDS: SERTRALINE 50 MG TAB PO SCH (08:32)
[2018-10-21] MEDS: METOPROLOL TARTRATE 50 MG TAB PO SCH ×3 (08:32→20:35)
[2018-10-21] MEDS: MULTIVITAMINS, THERA 1 EACH TAB PO SCH (08:33)
--- NOTE | 2018-10-21 08:49 | P.CRDCN ---
History of Present Illness Consult date: 10/21/18 Requesting physician: Bradley Dai Reason for Consult (text): SVT Chief complaint: Lightheadedness and palpitations History of present illness: This is a 52-year-old gentleman with history of chronic lymphedema and cellulitis of his bilateral lower extremities, obesity, anxiety, history of pulmonary embolism and DVT, patient was recently in the hospital earlier this month, patient had acute cardiopulmonary arrest secondary to pulmonary embolism , he had a tracheostomy and PEG tube placed. Patient was discharged from here to an ECF, apparently he has had some symptoms of vomiting, yesterday patient states he was very lightheaded and felt his heart racing extremely fast. He states that it was very difficult for him to breathe. For this reason EMS was called, his heart rate was documented to be in the 160-180 range, according to the documentation the rhythm strips showed a supraventricular tachycardia, patient was given adenosine and converted back to normal sinus rhythm. At this point in time we do not have those rhythm strips. Patient also states approximately a year and a half ago was told to also had an episode of supraventricular tachycardia requiring adenosine. Patient states that after he converted back to normal sinus rhythm he felt fairly well overall, his breathing was stable, he had no further symptoms of nausea. Chest x-ray did not reveal any evidence of acute pulmonary disease. Initial EKG performed in the emergency room showed a sinus tachycardia with no acute changes. Blood pressure 116/70 with a heart rate in the 80s, 90% on room air. White blood cell count 7.0, hemoglobin 10.3, platelet count 349, sodium 142, potassium 3.8, BUN 15, creatinine 2.08. Troponins 0.012, 0.021, 0.021. Cholesterol 221, LDL 121, HDL 38, triglycerides 309. TSH 3.4. Chest x-ray on presentation here did not reveal any acute pulmonary disease. Past Medical History Past Medical History: Deep Vein Thrombosis (DVT), Pulmonary Embolus (PE) Additional Past Medical History / Comment(s): ex-smoker, seborrheic dermatitits , keyur leg lymph edema, anxiety History of Any Multi-Drug Resistant Organisms: None Reported Past Surgical History: Cholecystectomy, Hernia Repair Additional Past Surgical History / Comment(s): left achillies tendon repair 1974 , umb hernia repair Past Anesthesia/Blood Transfusion Reactions: No Reported Reaction Past Psychological History: Anxiety Smoking Status: Former smoker Past Alcohol Use History: Heavy Additional Past Alcohol Use History / Comment(s): started smoking at age 33(1998 ) and quit 2008 smoked 2 ppd. stated past heavy etog quit 2008 Past Drug Use History: None Reported - Past Family History Brother(s) Family Medical History: Pulmonary Embolus Additional Family Medical History / Comment(s): CABG Mother Family Medical History: COPD, Pneumonia Additional Family Medical History / Comment(s): non-smoker. at age 89 Father Family Medical History: Myocardial Infarction ([place]) Additional Family Medical History / Comment(s): smoker, mi - age 64 Medications and Allergies Home Medications Medication Instructions Recorded Confirmed Type Multivitamin,Therapeutic [Thera] 1 tab PO DAILY 09/08/18 10/20/18 History Metoprolol Tartrate [Lopressor] 50 mg PO TID tab 09/29/18 10/20/18 Rx Pantoprazole Sodium [Protonix] 20 mg PO DAILY 10/20/18 10/20/18 History QUEtiapine FUMARATE 25 mg PO HS 10/20/18 10/20/18 History Rivaroxaban [Xarelto] 15 mg PO HS 10/20/18 10/20/18 History Sertraline [Zoloft] 50 mg PO DAILY 10/20/18 10/20/18 History Allergies Allergy/AdvReac Type Severity Reaction Status Date / Time No Known Allergies Allergy Verified 09/08/18 11:26 Physical Exam Vitals: Vital Signs Temp Pulse Pulse Pulse Resp BP BP 10/21/18 04:00 97.4 F L 86 18 116/67 10/21/18 00:00 97.1 F L 67 18 132/66 10/20/18 20:00 97.7 F 100 18 124/69 10/20/18 15:00 99 F 76 16 133/83 10/20/18 14:20 67 16 10/20/18 13:00 67 16 131/64 10/20/18 12:40 89 16 10/20/18 12:20 67 16 113/86 10/20/18 12:00 71 23 113/86 10/20/18 11:40 73 20 113/86 10/20/18 11:20 72 18 113/86 10/20/18 11:00 80 16 113/86 10/20/18 10:40 95 17 113/86 10/20/18 10:20 98 17 113/86 10/20/18 10:00 113/86 10/20/18 09:47 32 H 10/20/18 09:37 113 H 10/20/18 09:32 110 H 18 129/73 Pulse Ox 10/21/18 04:00 98 10/21/18 00:00 95 10/20/18 20:00 95 10/20/18 15:00 97 10/20/18 14:20 97 10/20/18 13:00 100 10/20/18 12:40 10/20/18 12:20 98 10/20/18 12:00 96 10/20/18 11:40 98 10/20/18 11:20 98 10/20/18 11:00 98 10/20/18 10:40 98 10/20/18 10:20 97 10/20/18 10:00 10/20/18 09:47 96 10/20/18 09:37 10/20/18 09:32 96 Intake and Output 10/20/18 10/21/18 10/21/18 22:59 06:59 14:59 Intake Total 520 Balance 520 Intake: IV 160 0.9 160 Oral 360 Other: Voiding Method Toilet Toilet Weight 137.3 kg PHYSICAL EXAMINATION: GENERAL: 52-year-old gentleman in no acute distress at the time of my examination HEENT: Head is atraumatic, normocephalic. Pupils equal, round. Sclera anicteric. Conjunctiva are clear. Mucous membranes of the mouth are moist. Neck is supple. Small dressing in place where tracheostomy was removed. There is no elevated jugular venous pressure. No carotid bruit is heard. HEART EXAMINATION: Heart S1, S2 normal. No murmur or gallop heard. CHEST EXAMINATION: Lungs are clear to auscultation and precussion. No chest wall tenderness is noted on palpation or with deep breathing. ABDOMEN: Soft, obese, nontender. Bowel sounds are heard. No organomegaly noted. PEG tube in place. EXTREMITIES: 2+ peripheral pulses with 1+ evidence of peripheral edema and no calf tenderness noted. NEUROLOGIC patient is awake, alert and oriented 3 . . Results 10/21/18 06:13 10/21/18 06:13 Cardiac Enzymes 1110/20/18 10/20/18 Range/Units 09:40 09:40 15:33 AST 45 (17-59) U/L CK-MB (CK-2) 0.6 0.6 (0.0-2.4) ng/mL Troponin I <0.012 0.021 (0.000-0.034) ng/mL 10/20/18 Range/Units 22:18 AST (17-59) U/L CK-MB (CK-2) 0.7 (0.0-2.4) ng/mL Troponin I 0.021 (0.000-0.034) ng/mL Coagulation 10/20/18 Range/Units 09:40 PT 11.9 (9.0-12.0) sec APTT 27.3 (22.0-30.0) sec Lipids 10/21/18 Range/Units 06:13 Triglycerides 309 H (<150) mg/dL Cholesterol 221 H (<200) mg/dL HDL Cholesterol 38 L (40-60) mg/dL CBC 10/20/18 10/21/18 Range/Units 09:40 06:13 WBC 9.2 7.0 (3.8-10.6) k/uL RBC 3.40 L 3.42 L (4.30-5.90) m/uL Hgb 10.4 L 10.3 L (13.0-17.5) gm/dL Hct 32.3 L 32.1 L (39.0-53.0) % Plt Count 435 349 (150-450) k/uL Comprehensive Metabolic Panel 10/20/18 10/21/18 Range/Units 09:40 06:13 Sodium 142 142 (137-145) mmol/L Potassium 4.3 3.8 (3.5-5.1) mmol/L Chloride 107 110 H (98-107) mmol/L Carbon Dioxide 22 23 (22-30) mmol/L BUN 14 15 (9-20) mg/dL Creatinine 2.15 H 2.08 H (0.66-1.25) mg/dL Glucose 100 H 88 (74-99) mg/dL Calcium 8.4 8.7 (8.4-10.2) mg/dL AST 45 (17-59) U/L ALT 31 (21-72) U/L Alkaline Phosphatase 88 (38-126) U/L Total Protein 7.4 (6.3-8.2) g/dL Albumin 3.7 (3.5-5.0) g/dL Current Medications Generic Name Dose Route Start Last Admin Trade Name Freq PRN Reason Stop Dose Admin Acetaminophen 500 mg 10/20/18 21:08 Tylenol Tab PO Q6HR PRN Fever and/ or Mild Pain Hydrocodone Bitart/Acetaminophen 1 each 10/20/18 21:08 Langford 5-325 PO Q6HR PRN Pain Albuterol/Ipratropium 3 ml 10/21/18 08:00 10/21/18 07:43 Duoneb 0.5 Mg-3 Mg/3 Ml Soln INHALATION Not Given RT-TID [facility] Aspirin 325 mg 10/21/18 09:00 10/21/18 08:32 Aspirin PO 325 mg DAILY [facility] Administration Ceftriaxone Sodium 1,000 mg/ 50 mls @ 100 mls/hr 10/20/18 21:30 10/20/18 22: 00 Sodium Chloride IVPB 100 mls/hr HS [facility] Administration Lorazepam 0.5 mg 10/20/18 21:08 Ativan PO Q2HR PRN Anxiety Melatonin 3 mg 10/20/18 21:08 Melatonin PO HS PRN Insomnia Metoprolol Tartrate 50 mg 10/20/18 16:00 10/21/18 08:32 Lopressor PO 50 mg TID [facility] Administration Multivitamins 1 each 10/21/18 12:00 10/21/18 08:33 Theragran PO 1 each DAILY@1200 [facility] Administration Nitroglycerin 1 inch 10/20/18 12:00 10/21/18 06:28 Nitro-Bid Oint TOPICAL Not Given Q6HR [facility] Nitroglycerin 0.4 mg 10/20/18 11:58 Nitrostat SUBLINGUAL Q5M PRN Chest Pain Pantoprazole Sodium 40 mg 10/21/18 07:30 10/21/18 06:29 Protonix PO 40 mg [id number] [facility] Administration Quetiapine Fumarate 25 mg 10/20/18 21:00 10/20/18 20:48 Seroquel PO 25 mg HS [facility] Administration Rivaroxaban 15 mg 10/20/18 21:00 10/20/18 20:48 Xarelto PO 15 mg HS [facility] Administration Sertraline HCl 50 mg 10/21/18 09:00 10/21/18 08:32 Zoloft PO 50 mg DAILY [facility] Administration Intake and Output 10/20/18 10/21/18 10/21/18 22:59 06:59 14:59 Intake Total 520 Balance 520 Intake: IV 160 0.9 160 Oral 360 Other: Voiding Method Toilet Toilet Weight 137.3 kg 10/21/18 06:13 10/21/18 06:13 EKG Interpretations (text) Initial EKG on presentation here showed a sinus tachycardia with no acute changes. Assessment and Plan Plan: Assessment and plan #1 symptoms of lightheadedness with associated palpitations and heart racing. EMS note suggests initial EKG showed a supraventricular tachycardia, dose of adenosine given, patient currently in a sinus rhythm. #2 recent symptoms of nausea vomiting and diarrhea #3 recent hospitalization with massive bilateral pulmonary embolism with associated respiratory failure. Status post tracheostomy and PEG tube placement at that time #4 morbid obesity #5 acute on chronic renal failure #6 hypertension Plan Echocardiogram with Doppler study which was performed in August 2018 revealed an ejection fraction of 60-65%, we will not repeat an echo on this admission. We will decrease the patient's aspirin to 81 mg daily, continue metoprolol, discontinue Nitropaste, continue Xarelto. Further recommendations to follow. DNP note has been reviewed, I agree with a documented findings and plan of care. Patient was seen and examined.
[2018-10-21] MEDS ORDERED: ASPIRIN 325 MG TAB PO SCH (09:00)
[2018-10-21] MEDS: ASPIRIN 81 MG PO SCH (09:10)
[2018-10-21] MEDS: ATORVASTATIN 20 MG TAB PO SCH (11:19)
--- NOTE | 2018-10-21 13:37 | P.CNPUL ---
History of Present Illness Consult date: 10/21/18 Reason for consult: other Chief complaint: SVT/A. fib History of present illness: Pulmonary/critical care consult dated 10/21/2018 This is a 51-year-old male well-known to me. He was recently here for prolonged period of time. The patient came in initially a couple weeks ago with a massive pulmonary embolism. He subsequently developed cardiopulmonary arrest. He ended up on the ventilator for prolonged period of time and ended up not being able to be weaned and ended up with a tracheostomy and a PEG tube. The tracheostomy has been removed. She still has a PEG tube in place. He apparently was [facility] care. Again, the patient had a very abdulaziz course here in the hospital. He did receive systemic TPA for his massive pulmonary embolism. Anyway, on this admission he started feeling lightheaded in the morning on the day of admission. He also noticed some heart fluttering and palpitations. He then had nausea and vomiting. He came to the emergency room where he was found to have a rapid heartbeat of 1 80 bpm. He was thought to have SVT was given adenosine. The patient is currently resting comfortably in the hospital. He apparently will be seen by cardiology and he mentions that he might need an ablation. He is also hoping that on this admission, he can have his PEG tube removed. He really denies any pulmonary issues at this time. She denies any shortness of breath difficulty breathing coughing wheezing or phlegm production. He has no memory of very little memory of what happened to him on his recent prolonged hospitalization. His only obvious sequelae is bilateral upper extremity tremors particularly in the hands left greater than right. Other than that, he states that he's recovered very nicely. His past medical history is positive for deep venous thrombosis and pulmonary embolism. We are recommending lifelong anticoagulation for him. He is on a factor X a inhibitor. Review of Systems A 14 point review of system is positive for palpitations rapid heartbeat heart fluttering nausea and vomiting. Apparently did not have any chest pain or chest discomfort. He was also lightheaded and dizzy. Past Medical History Past Medical History: Deep Vein Thrombosis (DVT), Pulmonary Embolus (PE) Additional Past Medical History / Comment(s): ex-smoker, seborrheic dermatitits , keyur leg lymph edema, anxiety History of Any Multi-Drug Resistant Organisms: None Reported Past Surgical History: Cholecystectomy, Hernia Repair Additional Past Surgical History / Comment(s): left achillies tendon repair 1974 , umb hernia repair Past Anesthesia/Blood Transfusion Reactions: No Reported Reaction Past Psychological History: Anxiety Smoking Status: Former smoker Past Alcohol Use History: Heavy Additional Past Alcohol Use History / Comment(s): started smoking at age 33(1998 ) and quit 2008 smoked 2 ppd. stated past heavy etog quit 2008 Past Drug Use History: None Reported - Past Family History Brother(s) Family Medical History: Pulmonary Embolus Additional Family Medical History / Comment(s): CABG Mother Family Medical History: COPD, Pneumonia Additional Family Medical History / Comment(s): non-smoker. at age 89 Father Family Medical History: Myocardial Infarction ([place]) Additional Family Medical History / Comment(s): smoker, mi - age 64 Medications and Allergies Home Medications Medication Instructions Recorded Confirmed Type Multivitamin,Therapeutic [Thera] 1 tab PO DAILY 09/08/18 10/20/18 History Metoprolol Tartrate [Lopressor] 50 mg PO TID tab 09/29/18 10/20/18 Rx Pantoprazole Sodium [Protonix] 20 mg PO DAILY 10/20/18 10/20/18 History QUEtiapine FUMARATE 25 mg PO HS 10/20/18 10/20/18 History Rivaroxaban [Xarelto] 15 mg PO HS 10/20/18 10/20/18 History Sertraline [Zoloft] 50 mg PO DAILY 10/20/18 10/20/18 History Allergies Allergy/AdvReac Type Severity Reaction Status Date / Time No Known Allergies Allergy Verified 09/08/18 11:26 Physical Exam Osteopathic Statement: *. No significant issues noted on an osteopathic structural exam other than those noted in the History and Physical/Consult. Vitals: Vital Signs Temp Pulse Pulse Resp BP Pulse Ox 10/21/18 11:20 98.1 F 64 18 130/71 100 10/21/18 08:32 97.4 F L 92 18 137/87 93 L 10/21/18 04:00 97.4 F L 86 18 116/67 98 10/21/18 00:00 97.1 F L 67 18 132/66 95 10/20/18 20:00 97.7 F 100 18 124/69 95 10/20/18 15:00 99 F 76 16 133/83 97 10/20/18 14:20 67 16 97 Intake and Output 10/20/18 10/21/18 10/21/18 22:59 06:59 14:59 Intake Total 520 480 Balance 520 480 Intake: IV 160 0.9 160 Oral 360 480 Other: Voiding Method Toilet Toilet Toilet Weight 137.3 kg No acute distress, oriented 3. Not requiring any supplemental oxygen. HEENT examination is grossly unremarkable. Mucous membranes are moist. No oral lesions. Neck supple. Full range of motion. No adenopathy thyromegaly or neck vein distention. A bandage is noted over the midline tracheostomy scar. Cardiovascular examination reveals regular rhythm rate. S1-S2 normal. No S3 or S4. No discernible murmur noted. Heart rate is 90. Lungs reveal clear breath sounds. Breath sounds are equal bilaterally. No adventitious lung sounds including wheezes rhonchi or crackles. Abdomen soft bowel sounds are heard. No masses or tenderness. Extremities are intact. No cyanosis clubbing or edema. Skin is without rash or lesion. Neurologic examination is brief but nonfocal. He has tremors of both hands, left greater than right. Results - Laboratory Findings CBC and BMP: 10/21/18 06:13 10/21/18 06:13 PT/INR, D-dimer PT 11.9 sec (9.0-12.0) 10/20/18 09:40 INR 1.3 (<1.2) H 10/20/18 09:40 Abnormal lab findings: Abnormal Labs 10/20/18 10/20/18 10/20/18 09:40 09:40 09:40 RBC 3.40 L Hgb 10.4 L Hct 32.3 L RDW 16.4 H INR Chloride Creatinine 2.15 H Glucose 100 H Total Creatine Kinase 54 L Triglycerides Cholesterol LDL Cholesterol, Calc HDL Cholesterol 10/20/18 10/20/18 10/20/18 09:40 15:33 22:18 RBC Hgb Hct RDW INR 1.3 H Chloride Creatinine Glucose Total Creatine Kinase 43 L 52 L Triglycerides Cholesterol LDL Cholesterol, Calc HDL Cholesterol 10/21/18 10/21/18 06:13 06:13 RBC 3.42 L Hgb 10.3 L Hct 32.1 L RDW 16.1 H INR Chloride 110 H Creatinine 2.08 H Glucose Total Creatine Kinase Triglycerides 309 H Cholesterol 221 H LDL Cholesterol, Calc 121 H HDL Cholesterol 38 L - Diagnostic Findings Chest x-ray: report reviewed, image reviewed (Chest x-ray, labs and medications are all reviewed.) Assessment and Plan Assessment: Assessment Acute supraventricular tachycardia Recent prolonged and abdulaziz hospitalization secondary to massive pulmonary embolism with right heart strain or shifting and flattening of the septum, with subsequent cardiopulmonary arrest intubation mechanical ventilation and eventual tracheostomy and PEG tube placement. The patient did receive systemic TPA on that admission and also was found to have a DVT in the right leg. Chronic kidney disease, stage III Previous history of DVT Status post tracheostomy, with subsequent decannulation Status post PEG tube placement History of chronic nicotine dependence History of anxiety Anemia of chronic disease Status post prolonged mechanical ventilation. Plan: Plan dated 10/21/2018 The patient is doing well. We talked in detail about his most recent hospitalization here. Both myself and my nurse practitioner were at the bedside when he had his cardiopulmonary arrest. Lines were placed. He was intubated by anesthesia. We subsequently replaced his lines. The patient did receive systemic TPA on that admission. The patient had failure to wean required tracheostomy and PEG tube placement. He was [facility] where he was weaned and decannulated. The PEG tube is still in place and need to be removed. He'll also see cardiology on this admission for his SVT and may benefit from ablation. White count 7, hemoglobin 10.8, hematocrit 32.1 and platelet count is normal. Sodium is 142 potassium 3.8 chloride is 110 CO2 23 BUN 15 and creatinine 2.08. Chest x-rays reviewed and thought to be normal. He remains on a factor X a inhibitor and she will take this for the rest of his life. Antibiotics will be discontinued as her not necessarily on this admission. Surgery has been consulted for possible removal of the PEG tube. Time with Patient: Greater than 30
--- NOTE | 2018-10-21 17:01 | P.GSCN ---
History of Present Illness Consult date: 10/21/18 Reason for Consult: Removal of the PEG tube History of present illness: 52-year-old male presented to the emergency room to be evaluated for lightheadedness felt like his heart was racing nausea sensation felt like he needed to have a bowel movement could not go. EMS arrived, heart rate. Greater than 180. Patient per EMS was treated for SVT given adensine. Patient apparently converted to sinus rhythm after being given adenosine. Patient was recently here for a prolonged period time. Patient had a massive pulmonary emboli several weeks ago underwent cardiopulmonary arrest in a the ventilator for prolonged period of time with a tracheostomy and a PEG tube placed. Dr. orozco placed the PEG tube for nutritional support patient at that time was stabilized and transferred to [facility] were patient stated that he been recuperating and was just transferred to the [facility] facility on Friday. Patient apparently is tolerating a regular diet no difficulty in swallowing. The tracheostomy tube was removed according to the patient several weeks ago. Upon entering the room patient is up ambulatory in the room the gait is steady states he's really would like to eat a pizza and would like his tube out. Patient does have a history of factor X. Patient has been recommending taking lifelong anticoagulation PEG tube shows no evidence of any redness. Abdomen is soft nondistended patient is tolerating regular diet without difficulty in swallowing Review of Systems Essentially unremarkable except as mentioned present illness Past Medical History Past Medical History: Deep Vein Thrombosis (DVT), Pulmonary Embolus (PE) Additional Past Medical History / Comment(s): ex-smoker, seborrheic dermatitits , keyur leg lymph edema, anxiety History of Any Multi-Drug Resistant Organisms: None Reported Past Surgical History: Cholecystectomy, Hernia Repair Additional Past Surgical History / Comment(s): left achillies tendon repair 1974 , umb hernia repair Past Anesthesia/Blood Transfusion Reactions: No Reported Reaction Past Psychological History: Anxiety Smoking Status: Former smoker Past Alcohol Use History: Heavy Additional Past Alcohol Use History / Comment(s): started smoking at age 33(1998 ) and quit 2008 smoked 2 ppd. stated past heavy etog quit 2008 Past Drug Use History: None Reported - Past Family History Brother(s) Family Medical History: Pulmonary Embolus Additional Family Medical History / Comment(s): CABG Mother Family Medical History: COPD, Pneumonia Additional Family Medical History / Comment(s): non-smoker. at age 89 Father Family Medical History: Myocardial Infarction ([place]) Additional Family Medical History / Comment(s): smoker, mi - age 64 Medications and Allergies Home Medications Medication Instructions Recorded Confirmed Type Multivitamin,Therapeutic [Thera] 1 tab PO DAILY 09/08/18 10/20/18 History Metoprolol Tartrate [Lopressor] 50 mg PO TID tab 09/29/18 10/20/18 Rx Pantoprazole Sodium [Protonix] 20 mg PO DAILY 10/20/18 10/20/18 History QUEtiapine FUMARATE 25 mg PO HS 10/20/18 10/20/18 History Rivaroxaban [Xarelto] 15 mg PO HS 10/20/18 10/20/18 History Sertraline [Zoloft] 50 mg PO DAILY 10/20/18 10/20/18 History Allergies Allergy/AdvReac Type Severity Reaction Status Date / Time No Known Allergies Allergy Verified 09/08/18 11:26 Surgical - Exam Vital Signs Pulse Resp BP Pulse Ox 110 H 18 129/73 96 10/20/18 09:32 10/20/18 09:32 10/20/18 09:32 10/20/18 09:32 GENERAL APPEARANCE: 52-year-old male up ambulating in the room states he has no recall of being in the hospital last admission alert, oriented, in no acute distress. VITAL SIGNS: Reviewed HEENT: Head is normocephalic and atraumatic. Pupils are equal and reactive. The nares are patent. Oropharynx is clear without lesions. NECK: Supple without lymphadenopathy. Traches midline. HEART: S1, S2. Regular rate and rhythm. LUNGS: No crackles or wheezes are heard. ABDOMEN: Soft obese, nontender, nondistended with good bowel sounds. No peritoneal signs. No palpable organomegaly or masses. PEG tube in place EXTREMITIES: Normal skin color and turgor. No cyanosis, rash, ulceration, clubbing or edema. Radial pedal pulses are 2/4 bilaterally. Fine tremors of both hands left greater than the right NEUROLOGICAL: No focal deficits. Strength and sensation are grossly intact. Results - Labs 10/21/18 06:13 10/21/18 06:13 Abnormal Lab Results - Last 24 Hours (Table) 10/20/18 10/21/18 10/21/18 Range/Units 22:18 06:13 06:13 RBC 3.42 L (4.30-5.90) m/uL Hgb 10.3 L (13.0-17.5) gm/dL Hct 32.1 L (39.0-53.0) % RDW 16.1 H (11.5-15.5) % Chloride 110 H (98-107) mmol/L Creatinine 2.08 H (0.66-1.25) mg/dL Total Creatine Kinase 52 L (55-170) U/L Triglycerides 309 H (<150) mg/dL Cholesterol 221 H (<200) mg/dL LDL Cholesterol, Calc 121 H (0-99) mg/dL HDL Cholesterol 38 L (40-60) mg/dL Diabetes panel 10/21/18 Range/Units 06:13 Sodium 142 (137-145) mmol/L Potassium 3.8 (3.5-5.1) mmol/L Chloride 110 H (98-107) mmol/L Carbon Dioxide 23 (22-30) mmol/L BUN 15 (9-20) mg/dL Creatinine 2.08 H (0.66-1.25) mg/dL Glucose 88 (74-99) mg/dL Calcium 8.7 (8.4-10.2) mg/dL Triglycerides 309 H (<150) mg/dL HDL Cholesterol 38 L (40-60) mg/dL Calcium panel 10/21/18 Range/Units 06:13 Calcium 8.7 (8.4-10.2) mg/dL Pituitary panel 10/21/18 Range/Units 06:13 Sodium 142 (137-145) mmol/L Potassium 3.8 (3.5-5.1) mmol/L Chloride 110 H (98-107) mmol/L Carbon Dioxide 23 (22-30) mmol/L BUN 15 (9-20) mg/dL Creatinine 2.08 H (0.66-1.25) mg/dL Glucose 88 (74-99) mg/dL Calcium 8.7 (8.4-10.2) mg/dL Adrenal panel 10/21/18 Range/Units 06:13 Sodium 142 (137-145) mmol/L Potassium 3.8 (3.5-5.1) mmol/L Chloride 110 H (98-107) mmol/L Carbon Dioxide 23 (22-30) mmol/L BUN 15 (9-20) mg/dL Creatinine 2.08 H (0.66-1.25) mg/dL Glucose 88 (74-99) mg/dL Calcium 8.7 (8.4-10.2) mg/dL Assessment and Plan Assessment: Impression Present on admission heart palpitations suspect due to acute episode of supraventricular tachycardia converted to sinus after being given adensine Chronic kidney disease stage III A recent prolonged hospitalization secondary to massive pulmonary emboli with right heart strain resulting in a cardiopulmonary arrest with mechanical intubation with tracheostomy and PEG tube placement. History of a DVT right leg. Status post tracheostomy with subsequent the cannulization Status post PEG tube placement Plan Anticipate to remove PEG tube at the bedside Continue with the current care per recommendations of cardiology and pulmonary Continue Xarelto 15 mg at bedtime is scheduled Continue DVT and GI prophylaxis. Surgical consultation dictated for Dr. orozco The above impression and plan of care have been discussed and directed by signing physician. Ella Vargas nurse practitioner acting as scribe for signing physician.
--- NOTE | 2018-10-21 17:33 | PN ---
PROGRESS NOTE DATE OF SERVICE: 10/13/2018 This 52-year-old gentleman admitted with dizziness and fluttering in the chest had features of supraventricular tachycardia. The patient also had hyperlipidemia Cardiology is following the patient closely. No chest pain. No palpitations. No fever. Patient has a recent history of massive pulmonary embolism with a very complicated medical/surgical history. The patient had tracheostomy just removed. The patient has respiratory atelectasis also. Patient is on bronchodilators. Cardiology saw the patient. Dr. Herndon also saw the patient. Dr. Herndon is also following the patient closely. Past medical history reviewed. REVIEW OF SYSTEMS: CARDIOVASCULAR SYSTEM: No angina, palpitations. RESPIRATORY SYSTEM: As mentioned earlier. GI: As mentioned earlier. : No dysuria or retention. NERVOUS SYSTEM: No numbness, weakness. CURRENT MEDICATIONS: Reviewed. They include: 1. Tylenol 500 mg q.6 p.r.n. 2. [place] 5 mg q.6 p.r.n. 3. DuoNeb q.i.d. and p.r.n. 4. Aspirin 81 mg p.o. daily. 5. Lipitor . 6. Ativan 0.5 mg b.i.d. 7. Melatonin 3 mg. 8. Lopressor 50 mg at bedtime. 9. Multivitamins. 10.Protonix. 11.Seroquel 25 mg at bedtime. 12.Xarelto 15 mg at bedtime. 13.Zoloft 50 mg daily. PHYSICAL EXAMINATION: Patient is alert, oriented x3. The pulse is 64, blood pressure 130/70, respiration 18, temperature 98.2, pulse ox 100% on room air. HEENT: Conjunctivae normal. Oral mucosa moist. NECK: Tracheostomy, closed. CARDIOVASCULAR SYSTEM: S1, S2 muffled. RESPIRATORY SYSTEM: Breath sounds diminished at the bases. A few scattered rhonchi and crackles. ABDOMEN: Soft. PEG tube in place. LEGS: No edema. No swelling. NERVOUS SYSTEM: Higher functions as mentioned earlier. Moves all 4 limbs. No focal motor or sensory deficit. LYMPHATICS: No lymph node palpable in neck, axillae or groin. SKIN: No ulcer, rash, bleeding. LABS: Labs at this time show WBC is 7, hemoglobin 10.3, sodium 142. Triglycerides 309. Cholesterol is 221. ASSESSMENT: 1. Acute supraventricular tachycardia. 2. Rule out coronary artery disease. 3. Chronic kidney disease, stage III. 4. Hyperlipidemia. 5. Anemia; normocytic anemia of chronic disease. 6. History of recent massive pulmonary embolism and right ventricular stent, status post systemic tPA. 7. History of recent acute respiratory distress syndrome secondary to pulmonary embolism. 8. History of deep venous thrombosis. 9. Status post tracheostomy being closed off. 10.Status post PEG tube placement, for removal. 11.Seborrheic dermatitis. 12.History of nicotine dependence. 13.History of anxiety. 14.History of cholecystectomy. 15.History of hernia repair. 16.History of ethanol. RECOMMENDATIONS AND DISCUSSION: At this time I recommend to continue current medication, continue with symptomatic treatment. Continue with bronchodilators. Continue the rest of the medications. Cardiac workup is also in progress. Otherwise, we will continue the telemetry. Continue the rest of the medications. Prognosis is guarded because of the multiple complex medical issues. Further recommendations to follow. Previous echo with ejection fraction 60% to 65%. MMODL / IJN: [id number] / MTDBebe
[2018-10-21] MEDS: QUEtiapine 25 MG TAB PO SCH (20:35)
[2018-10-21] MEDS: RIVAROXABAN 15 MG TAB PO SCH (20:35)
[2018-10-22] MEDS: PANTOPRAZOLE 40 MG TABLET PO SCH (06:12)
[2018-10-22 07:36] LABS: Potassium 4.2 mmol/L (3.5-5.1)
[2018-10-22] MEDS: IPRATROPIUM-ALBUTEROL 3 ML NEB INHALATION SCH ×2 (07:47→11:55)
[2018-10-22 07:49] LABS: Anisocytosis Slight; Basophils # (A) 0.1 k/uL (0-0.2); Basophils % (A) 1 %; Eosinophils # (A) 0.5 k/uL (0-0.7); Eosinophils % (A) 6 %; HCT 34.8 % (39.0-53.0); Lymphocytes % (A) 23 %; MCH 29.6 pg (25.0-35.0); MCHC 31.7 g/dL (31.0-37.0); MCV 93.6 fL (80.0-100.0); Mean Platelet Volume 6.6; Monocytes # (A) 0.5 k/uL (0-1.0); Monocytes % (A) 6 %; Neutrophils # (A) 5.4 k/uL (1.3-7.7); Neutrophils % (A) 63 %; Platelet Count 417 k/uL (150-450); RBC 3.72 m/uL (4.30-5.90); RDW 16.5 % (11.5-15.5); WBC 8.7 k/uL (3.8-10.6)
[2018-10-22 08:36] VITALS: TEMP 98.3
[2018-10-22] MEDS: ATORVASTATIN 20 MG TAB PO SCH (09:22)
[2018-10-22] MEDS: SERTRALINE 50 MG TAB PO SCH (09:22)
[2018-10-22] MEDS: METOPROLOL TARTRATE 50 MG TAB PO SCH ×2 (09:22→15:25)
[2018-10-22] MEDS: ASPIRIN 81 MG PO SCH (09:23)
[2018-10-22] MEDS: MULTIVITAMINS, THERA 1 EACH TAB PO SCH (12:35)
--- NOTE | 2018-10-22 12:51 | P.PN ---
Subjective Progress Note Date: 10/22/18 This is a 52-year-old gentleman with history of chronic lymphedema and cellulitis of his bilateral lower extremities, obesity, anxiety, history of pulmonary embolism and DVT, patient was recently in the hospital earlier this month, patient had acute cardiopulmonary arrest secondary to pulmonary embolism , he had a tracheostomy and PEG tube placed. Patient was discharged from here to an ECF, apparently he has had some symptoms of vomiting, yesterday patient states he was very lightheaded and felt his heart racing extremely fast. He states that it was very difficult for him to breathe. For this reason EMS was called, his heart rate was documented to be in the 160-180 range, according to the documentation the rhythm strips showed a supraventricular tachycardia, patient was given adenosine and converted back to normal sinus rhythm. At this point in time we do not have those rhythm strips. Patient also states approximately a year and a half ago was told to also had an episode of supraventricular tachycardia requiring adenosine. Patient states that after he converted back to normal sinus rhythm he felt fairly well overall, his breathing was stable, he had no further symptoms of nausea. Chest x-ray did not reveal any evidence of acute pulmonary disease. Initial EKG performed in the emergency room showed a sinus tachycardia with no acute changes. Blood pressure 116/70 with a heart rate in the 80s, 90% on room air. White blood cell count 7.0, hemoglobin 10.3, platelet count 349, sodium 142, potassium 3.8, BUN 15, creatinine 2.08. Troponins 0.012, 0.021, 0.021. Cholesterol 221, LDL 121, HDL 38, triglycerides 309. TSH 3.4. Chest x-ray on presentation here did not reveal any acute pulmonary disease. 2017 Patient was seen and examined this morning, no further episodes of supraventricular tachycardia noted, PEG tube is been removed. Overall the patient feels well. He has been advised to follow-up with cardiology post discharge, if he has recurrent episodes of supraventricular tachycardia and may require an ablation down the road. We will make him a follow-up appointment to see Dr. Calabrese in the office post discharge. Objective - Vital Signs Vital signs: Vital Signs Temp 98.3 F 10/22/18 08:30 Pulse 76 10/22/18 08:30 Resp 20 10/22/18 08:30 BP 117/61 10/22/18 08:30 Pulse Ox 94 L 10/22/18 08:30 Intake & Output 10/21/18 10/22/18 10/22/18 18:59 06:59 18:59 Intake Total 838 240 Balance 838 240 Weight 137.7 kg Intake: Oral 838 240 Other: Voiding Method Toilet Toilet Toilet # Voids 1 - Exam PHYSICAL EXAMINATION: GENERAL: 52-year-old gentleman in no acute distress at the time of my examination HEENT: Head is atraumatic, normocephalic. Pupils equal, round. Sclera anicteric. Conjunctiva are clear. Mucous membranes of the mouth are moist. Neck is supple. Small dressing in place where tracheostomy was removed. There is no elevated jugular venous pressure. No carotid bruit is heard. HEART EXAMINATION: Heart S1, S2 normal. No murmur or gallop heard. CHEST EXAMINATION: Lungs are clear to auscultation and precussion. No chest wall tenderness is noted on palpation or with deep breathing. ABDOMEN: Soft, obese, nontender. Bowel sounds are heard. No organomegaly noted. EXTREMITIES: 2+ peripheral pulses with 1+ evidence of peripheral edema and no calf tenderness noted. NEUROLOGIC patient is awake, alert and oriented 3 . - Labs CBC & Chem 7: 10/22/18 06:56 10/22/18 06:56 Labs: Abnormal Lab Results - Last 24 Hours (Table) 10/22/18 10/22/18 Range/Units 06:56 06:56 RBC 3.72 L (4.30-5.90) m/uL Hgb 11.0 L (13.0-17.5) gm/dL Hct 34.8 L (39.0-53.0) % RDW 16.5 H (11.5-15.5) % Chloride 109 H (98-107) mmol/L Creatinine 1.99 H (0.66-1.25) mg/dL Assessment and Plan Plan: Assessment and plan #1 symptoms of lightheadedness with associated palpitations and heart racing. EMS note suggests initial EKG showed a supraventricular tachycardia, dose of adenosine given, patient currently in a sinus rhythm. #2 recent symptoms of nausea vomiting and diarrhea #3 recent hospitalization with massive bilateral pulmonary embolism with associated respiratory failure. Status post tracheostomy and PEG tube placement at that time #4 morbid obesity #5 acute on chronic renal failure #6 hypertension Plan Echocardiogram with Doppler study which was performed in August 2018 revealed an ejection fraction of 60-65%, we will not repeat an echo on this admission. No further episodes of supraventricular tachycardia noted. From our perspective he may be able to be discharged once cleared by primary. We will make him a follow-up appointment to see Dr. Calabrese for his supraventricular tachycardia in the office. DNP note has been reviewed, I agree with a documented findings and plan of care. Patient was seen and examined.
[2018-10-22 15:23] VITALS: BP 151/71; PULSE 69; RESP 16
--- NOTE | 2018-10-22 16:53 | P.PN ---
Progress Note - Text Progress Note Date: 10/22/18 the patient is resting In his bed. He had his PEG tube removed last night.he has had no trouble eating. His abdomen is soft nontender. We will sign off.
--- NOTE | 2018-10-23 08:02 | DS ---
DISCHARGE SUMMARY FINAL DIAGNOSES: 1. Acute supraventricular tachycardia, improved. 2. Rule out coronary artery disease. 3. Chronic kidney disease stage III. 4. Hyperlipidemia. 5. Anemia, normocytic anemia of chronic disease. 6. History of recent massive pulmonary embolism with a right ventricular stent, status post systemic tPA. 7. History of recent acute respiratory distress syndrome secondary to pulmonary embolism. 8. History of deep venous thrombosis. 9. Status post tracheostomy, being closed off. 10.Status post PEG tube placement and removal. 11.Seborrheic dermatitis. 12.History of nicotine dependence. 13.History of anxiety. 14.History of cholecystectomy. 15.History of hernia repair. 16.History of EtOH. DISCHARGE DISPOSITION: The patient will be discharged in a stable condition with guarded prognosis. HISTORY OF PRESENT ILLNESS: A 52-year-old gentleman with a past medical history, was admitted with features of supraventricular tachycardia. The patient improved significantly with conservative line of management and is following the patient. PEG tube was removed. PHYSICAL EXAM: Vitals are stable. CARDIOVASCULAR: S1, S2. ABDOMEN: Soft, nontender. Cardiology saw the patient and recommended outpatient followup and also. DISCHARGE DIET: Cardiac. Activity limited until followup. Follow up with Dr. Toth in 2-3 days. Follow up with Cardiology as advised. Follow up with Pulmonology as advised. MEDICATIONS: As follows include: 1. Tylenol 500 mg q.6 p.r.n. 2. Albuterol 1-2 puffs q.6. 3. Aspirin 81 mg p.o. daily. 4. Lipitor 20 mg p.o. daily. 5. Lopressor 50 mg p.o. t.i.d. 6. Multivitamins 1 p.o. daily. 7. Protonix 20 mg p.o. 8. Seroquel 25 mg q.h.s. 9. Xarelto 50 mg q.h.s. 10.Zoloft 50 mg p.o. daily. MMODL / HYACINTHN: [id number] / MTDD
== END 2018-10-22 16:36 | disposition home health service (06) ==
LOC: EC 09:27 → INTOOBSV 11:58 → 3SCARD 11:58 → UNDODISIN 10-22 16:36
PROVIDERS: ADMIT Hospitalist; ATTEND Hospitalist
DX: I47.1 Supraventricular tachycardia (principal); N17.9 Acute kidney failure, unspecified; I12.9 Hypertensive chronic kidney disease with stage 1 through stage 4 chronic kidney disease, or unspecified chronic kidney disease; N18.3 Chronic kidney disease, stage 3 (moderate); J98.11 Atelectasis; D68.2 Hereditary deficiency of other clotting factors; D63.8 Anemia in other chronic diseases classified elsewhere; E78.5 Hyperlipidemia, unspecified; F41.9 Anxiety disorder, unspecified; L21.9 Seborrheic dermatitis, unspecified; Z93.1 Gastrostomy status; R19.7 Diarrhea, unspecified; R11.2 Nausea with vomiting, unspecified; I89.0 Lymphedema, not elsewhere classified; E66.01 Morbid (severe) obesity due to excess calories; Z68.39 Body mass index [BMI] 39.0-39.9, adult; Z79.899 Other long term (current) drug therapy; Z79.01 Long term (current) use of anticoagulants; Z87.891 Personal history of nicotine dependence; Z86.74 Personal history of sudden cardiac arrest; Z86.718 Personal history of other venous thrombosis and embolism; Z86.711 Personal history of pulmonary embolism; I25.2 Old myocardial infarction; F10.11 Alcohol abuse, in remission; Z90.49 Acquired absence of other specified parts of digestive tract; Z81.2 Family history of tobacco abuse and dependence; Z82.49 Family history of ischemic heart disease and other diseases of the circulatory system; Z82.5 Family history of asthma and other chronic lower respiratory diseases
CPT/HCPCS: 96365; 99285; 36415; 97162; 97165; 84439; 80061; 80053; 80048 ×2; 82550; 82553; 83735; 84443; 84484; 85025 ×3; 85610; 85730; 71046; G0378 ×3; J0696

== ENCOUNTER → 2018-12-31 | Outpatient (CLI) | payer OTHER ==
--- NOTE | 2018-12-31 11:49 | CT ---
EXAMINATION TYPE: CT angio chest DATE OF EXAM: 12/31/2018 COMPARISON: Prior CT angiogram of the chest 09/08/2018 HISTORY: Shortness of breath. Known PE from prior scan CT DLP: 600.9 mGycm Automated exposure control for dose reduction was used. CONTRAST: CTA scan of the thorax is performed with IV Contrast, patient injected with 100 mL of Isovue 370, pul monary embolism protocol. MIP images are created and reviewed. 3D reconstructed images are created on an independent workstation and reviewed. FINDINGS: LUNGS: The lungs are remarkable for some possible post inflammatory change or lower lobe atelectasis, minimal effusion at the left lung base, findings may be due to to previous pulmonary embolism, pulmo nary infarct. Previously described right lower lobe nodular density is no longer seen. There is no pl eural effusion or pneumothorax seen. The tracheobronchial tree is patent. AORTA: No additional significant abnormality is seen. MEDIASTINUM: There is satisfactory enhancement of the pulmonary artery and its branches, there is no CT evidence for pulmonary embolism. Previously identified bilateral pulmonary emboli are no longer se en. There are no greater than 1 cm hilar or mediastinal lymph nodes. No pericardial effusion is see n. OTHER: Low dense focus within the liver at the level of the dome shows a stable appearance. Patient is post cholecystectomy. Mild coronary artery calcifications present. IMPRESSION: INTERVAL RESOLUTION OF PATIENT'S PULMONARY EMBOLI. POSSIBLE LEFT LOWER LOBE ATELECTASIS CORRELATE TO EXCLUDE PNEUMONIA VERSUS POST INFLAMMATORY CHANGE LEFT LOWER LOBE.
== END ==
LOC: RADCTMAIN 09:51 → EEVIPCON 11:00
PROVIDERS: ATTEND Internal Medicine Critical Care Medicine
DX: R06.02 Shortness of breath (principal)
CPT/HCPCS: 82565; 84520; 71275; 36415; Q9967

== ENCOUNTER 2019-11-02 21:33 | Emergency (ER) | payer OTHER ==
--- NOTE | 2019-11-02 21:55 | ED ---
Alcohol HPI - General Stated Complaint: Foot Puncture Time Seen by Provider: 11/02/19 21:45 - Related Data Previous Rx's Medication Instructions Recorded Acetaminophen Tab [Tylenol] 500 mg PO Q6HR PRN #20 tab 10/22/18 Albuterol Inhaler [Ventolin Hfa 1 - 2 puff INHALATION QID #1 10/22/18 Inhaler] inhaler Apixaban [Eliquis] 5 mg PO BID #60 tab.ds.pk 10/22/18 Aspirin 81 mg PO DAILY #30 chew 10/22/18 Atorvastatin [Lipitor] 20 mg PO DAILY #30 tab 10/22/18 Metoprolol Tartrate [Lopressor] 50 mg PO TID #90 tab 10/22/18 Multivitamin,Therapeutic [Thera] 1 tab PO DAILY #30 tablet 10/22/18 Pantoprazole Sodium [Protonix] 20 mg PO DAILY #30 tablet. 10/22/18 QUEtiapine FUMARATE 25 mg PO HS #30 tablet 10/22/18 Sertraline [Zoloft] 50 mg PO DAILY #30 tab 10/22/18 Allergies Allergy/AdvReac Type Severity Reaction Status Date / Time No Known Allergies Allergy Verified 09/08/18 11:26 Review of Systems ROS Statement: Those systems with pertinent positive or pertinent negative responses have been documented in the HPI. ROS Other: All systems not noted in ROS Statement are negative. Past Medical History Past Medical History: Deep Vein Thrombosis (DVT), Pulmonary Embolus (PE) Additional Past Medical History / Comment(s): ex-smoker, seborrheic dermatitits, keyur leg lymph edema, anxiety History of Any Multi-Drug Resistant Organisms: None Reported Past Surgical History: Cholecystectomy, Hernia Repair Additional Past Surgical History / Comment(s): left achillies tendon repair 1974, umb hernia repair Past Anesthesia/Blood Transfusion Reactions: No Reported Reaction Past Psychological History: Anxiety Smoking Status: Former smoker Past Alcohol Use History: Heavy Additional Past Alcohol Use History / Comment(s): started smoking at age 33(1998) and quit 2008 smoked 2 ppd. stated past heavy etog quit 2008 Past Drug Use History: None Reported - Past Family History Brother(s) Family Medical History: Pulmonary Embolus Additional Family Medical History / Comment(s): CABG Mother Family Medical History: COPD, Pneumonia Additional Family Medical History / Comment(s): non-smoker. at age 89 Father Family Medical History: Myocardial Infarction ([place]) Additional Family Medical History / Comment(s): smoker, mi - age 64 Disposition Referrals: Amanda Toth MD [Primary Care Provider] - 1-2 days
--- NOTE | 2019-11-02 21:56 | ED ---
Lower Extremity Injury HPI - General Stated Complaint: Foot Puncture Time Seen by Provider: 11/02/19 21:45 - History of Present Illness Initial Comments: Remington is a pleasant morbidly obese 53-year-old gentleman on Xarelto due to previous pulmonary embolisms. Patient presents to the emergency department today via ambulance for evaluation of uncontrolled spontaneous bleeding from his right lower extremity. Patient ports he is watching TV when he noticed his foot was what looked down it was in a puddle of blood and there was blood spurting from the foot. Due to patient's morbid obesity and limited ability he was unable to reach the foot so EMS was contacted. Direct pressure was applied patient was brought to the emergency department. Patient does have significant varicose veins noted - Related Data Home Medications Medication Instructions Recorded Confirmed Metoprolol Tartrate [Lopressor] 50 mg PO BID 11/02/19 11/02/19 Rivaroxaban [Xarelto] 20 mg PO HS 11/02/19 11/02/19 Previous Rx's Medication Instructions Recorded Acetaminophen Tab [Tylenol] 500 mg PO Q6HR PRN #20 tab 10/22/18 Aspirin 81 mg PO DAILY #30 chew 10/22/18 Atorvastatin [Lipitor] 20 mg PO DAILY #30 tab 10/22/18 Multivitamin,Therapeutic [Thera] 1 tab PO DAILY #30 tablet 10/22/18 Allergies Allergy/AdvReac Type Severity Reaction Status Date / Time No Known Allergies Allergy Verified 11/02/19 22:10 Review of Systems ROS Statement: Those systems with pertinent positive or pertinent negative responses have been documented in the HPI. ROS Other: All systems not noted in ROS Statement are negative. Past Medical History Past Medical History: Deep Vein Thrombosis (DVT), Pulmonary Embolus (PE) Additional Past Medical History / Comment(s): ex-smoker, seborrheic dermatitits, keyur leg lymph edema, anxiety History of Any Multi-Drug Resistant Organisms: None Reported Past Surgical History: Cholecystectomy, Hernia Repair Additional Past Surgical History / Comment(s): left achillies tendon repair 1974, umb hernia repair Past Anesthesia/Blood Transfusion Reactions: No Reported Reaction Past Psychological History: Anxiety Smoking Status: Former smoker Past Alcohol Use History: Heavy Additional Past Alcohol Use History / Comment(s): started smoking at age 33(1998) and quit 2008 smoked 2 ppd. stated past heavy etog quit 2008 Past Drug Use History: None Reported - Past Family History Brother(s) Family Medical History: Pulmonary Embolus Additional Family Medical History / Comment(s): CABG Mother Family Medical History: COPD, Pneumonia Additional Family Medical History / Comment(s): non-smoker. at age 89 Father Family Medical History: Myocardial Infarction ([place]) Additional Family Medical History / Comment(s): smoker, mi - age 64 General Exam - General Exam Comments Initial Comments: Physical Exam GENERAL: Patient is well-developed and well-nourished. Patient is nontoxic and well-hydrated and is in no distress. HENT: Normocephalic, Atraumatic. EYES: PERRL, EOMI PULMONARY: Unlabored respirations. CARDIOVASCULAR: RRR Warm and well perfused extremities There is bleeding from a punctate rupture of a varicose vein on the lateral side of the right foot approximately 2 cm distal to the lateral malleoli ABDOMEN: Non-distended SKIN: Varicose veins noted in bilateral lower extremities with skin changes on the lower [place] is consistent with chronic venous stasis : Deferred NEUROLOGIC: Alert and oriented Normal speech Normal gait MUSCULOSKELETAL: Moving all extremities with no apparent injury PSYCHIATRIC: No SI/HI Course Vital Signs 11/02/19 21:46 Temperature 98.0 F Pulse Rate 85 Respiratory 18 Rate Blood Pressure 142/65 O2 Sat by Pulse 96 Oximetry Procedures - Laceration Laceration #1 Consent Obtained: verbal consent Indication: laceration Site: foot Description: clean (Punctate rupture of varicose vein with bleeding not controlled with direct pressure) Anesthetic Used: lidocaine 1%, with epi Anesthesia Technique: local infiltration Type of Sutures: nylon Size of Sutures: 4-0 Number of Sutures: 1 Technique: other (Figure of 8) Complications: bleeding Patient Tolerated Procedure: well Medical Decision Making - Medical Decision Making Patient was seen and evaluated the foot was cleansed while direct pressure was held on the bleeding varicosity. Despite over 30 minutes of direct pressure from a pressure bandage scissors still persistent bleeding decision was made to repair with a [id number] stitch. Patient was anesthetized with lidocaine with epinephrine and sutured with a single [id number] stitch with complete resolution of bleeding. Patient was relatively hypotensive upon arrival however he admitted to having a near syncopal reaction to seeing his own blood. This is typical for the patient. Disposition Clinical Impression: Bleeding from varicose veins of right lower extremity Disposition: HOME SELF-CARE Condition: Stable Additional Instructions: Keep the wound clean and dry Replace the dressing daily Follow-up with your primary care doctor next week for suture removal or you can return to the emergency room for suture removal. If you notice any recurrent bleeding any new bleeding any redness or signs of infection return to the emergency room immediately for reevaluation. Is patient prescribed a controlled substance at d/c from ED?: No Referrals: Amanda Toth MD [Primary Care Provider] - 1-2 days
[2019-11-02] MEDS ORDERED: LIDOCAINE 1%-EPI 1:100,000 20 ML VIAL SQ STA (22:40)
[2019-11-02] MEDS ORDERED: DIPH,PERTUS(ACELL)TETVAC-LF 0.5 ML VIAL IM ONE (22:40)
[2019-11-02 22:47] VITALS: BP 113/80; PULSE 68; RESP 17; TEMP 98
== END 2019-11-02 23:05 | disposition home or self-care (01) ==
LOC: EC 21:33
DX: I83.891 Varicose veins of right lower extremity with other complications (principal); E66.01 Morbid (severe) obesity due to excess calories; Z68.42 Body mass index [BMI] 45.0-49.9, adult; Z86.718 Personal history of other venous thrombosis and embolism; Z86.711 Personal history of pulmonary embolism; Z87.891 Personal history of nicotine dependence; Z79.01 Long term (current) use of anticoagulants; Z79.899 Other long term (current) drug therapy; Z23 Encounter for immunization
CPT/HCPCS: 12001; 90471; 90715; 99284

== ENCOUNTER → 2021-07-19 | Outpatient (CLI) | payer OTHER ==
[2021-07-19 20:22] LABS: African American GFR (CKD) 64.2 (60.0-200.0); Albumin 4.7 g/dL (3.80-4.90); Albumin/Globulin Ratio 1.42 (1.60-3.17); Anion Gap 8.8 mmol/L (4.00-12.00); BUN/Creat Ratio 10.71 Ratio (12.00-20.00); Calcium 9.5 mg/dL (8.7-10.3); Carbon Dioxide 26.2 mmol/L (21.6-31.8); Globulin 3.3 g/dL (1.6-3.3); Non-African American GFR(CKD) 55.4 (60.0-200.0); Potassium 4.3 mmol/L (3.5-5.5); Total Bilirubin 0.8 mg/dL (0.2-1.2)
[2021-07-19 20:34] LABS: Prostate Specific Antigen 0.7 ng/mL (0.0-3.5)
[2021-07-20 20:41] LABS: Hepatitis A Antibody IgM Non-Reactive (Non-Reactive); Hepatitis B Core IgM Non-Reactive (Non-Reactive); Hepatitis B Surface Antigen Non-Reactive (Non-Reactive); Hepatitis C IgG Antibody Non-Reactive (Non-Reactive)
== END | disposition home or self-care (01) ==
LOC: LABWHC1 14:27
PROVIDERS: ATTEND Internal Medicine
DX: Z00.00 Encounter for general adult medical examination without abnormal findings (principal); I10 Essential (primary) hypertension; R63.5 Abnormal weight gain; R53.82 Chronic fatigue, unspecified; Z79.01 Long term (current) use of anticoagulants
CPT/HCPCS: 36415; 80053; 80074; 84153; 84402; 84403; 84443

== ENCOUNTER → 2021-08-24 | Outpatient (CLI) | payer OTHER | END | disposition home or self-care (01) | LOC: LABWHC1 14:30 | PROVIDERS: ATTEND Internal Medicine | DX: R63.5 Abnormal weight gain (principal); R53.82 Chronic fatigue, unspecified; Z79.01 Long term (current) use of anticoagulants | CPT/HCPCS: 36415; 83036; 84402; 84403 ==

== ENCOUNTER → 2022-01-16 | Outpatient (CLI) | payer OTHER ==
[2022-01-16 23:17] LABS: HCT 54.9 % (39.6-50.0); HGB 17.1 g/dL (13.0-17.0); MCH 30.5 pg (27.0-32.0); MCHC 31.1 g/dL (32.0-37.0); Mean Platelet Volume 10.9 fL (9.5-12.2); NRBC Per 100 WBC 0 /100 WBCS (0.0-0.0); Platelet Count 280 X 10*3/uL (140-440); RDW 13.4 % (11.5-14.5); WBC 6.88 X 10*3/uL (4.50-10.00)
[2022-01-17 01:35] LABS: African American GFR (CKD) 63.7 (60.0-200.0); Albumin 4.3 g/dL (3.8-4.9); Albumin/Globulin Ratio 1.1 (1.60-3.17); Anion Gap 16.7 mmol/L (10.00-18.00); BUN/Creat Ratio 12.93 Ratio (12.00-20.00); Blood Urea Nitrogen 18.1 mg/dL (9.0-27.0); Calcium 10.2 mg/dL (8.7-10.3); Carbon Dioxide 21.3 mmol/L (20.0-27.5); Globulin 3.9 g/dL (1.6-3.3); Potassium 4.6 mmol/L (3.5-5.5); Prostate Specific Antigen 1.2 ng/mL (0.00-3.50); Total Bilirubin 0.3 mg/dL (0.30-1.20); Total Protein 8.2 g/dL (6.2-8.2)
== END | disposition home or self-care (01) ==
LOC: LABWHC1 14:49
PROVIDERS: ATTEND Internal Medicine
DX: E29.1 Testicular hypofunction (principal)
CPT/HCPCS: 36415; 80053; 84153; 84403; 85027

== ENCOUNTER 2023-07-21 06:35 | Emergency (ER) | payer OTHER ==
[2023-07-21 06:42] VITALS: RESP 18
[2023-07-21] MEDS ORDERED: LIDOCAINE 2%-EPI 1:100,000 20 ML VIAL SQ STA (06:43)
--- NOTE | 2023-07-21 08:08 | ED ---
Extremity Problem HPI - General Chief complaint: Extremity Problem,Nontraumatic Stated complaint: Wound care Time Seen by Provider: 07/21/23 06:38 Source: patient, EMS, RN notes reviewed Mode of arrival: EMS Limitations: no limitations - History of Present Illness Initial comments: 57-year-old male presents emergency Department chief complaint of bleeding from his left leg. Patient states that he has varicose veins and states that one rupture. This was read by EMS bleeding was controlled at that time. Patient is not on any current blood thinners. Patient states that he does have a wound that he was itching at on his left leg because of fleas at home. Patient denies any other associated complaints. - Related Data Home Medications Medication Instructions Recorded Confirmed Metoprolol Tartrate [Lopressor] 50 mg PO BID 11/02/19 11/02/19 Rivaroxaban [Xarelto] 20 mg PO HS 11/02/19 11/02/19 Previous Rx's Medication Instructions Recorded Acetaminophen Tab [Tylenol] 500 mg PO Q6HR PRN #20 tab 10/22/18 Aspirin 81 mg PO DAILY #30 chew 10/22/18 Atorvastatin [Lipitor] 20 mg PO DAILY #30 tab 10/22/18 Multivitamin,Therapeutic [Thera] 1 tab PO DAILY #30 tablet 10/22/18 Allergies Allergy/AdvReac Type Severity Reaction Status Date / Time No Known Allergies Allergy Verified 07/21/23 06:42 Review of Systems ROS Statement: Those systems with pertinent positive or pertinent negative responses have been documented in the HPI. ROS Other: All systems not noted in ROS Statement are negative. Past Medical History Past Medical History: Deep Vein Thrombosis (DVT), Pulmonary Embolus (PE) Additional Past Medical History / Comment(s): ex-smoker, seborrheic dermatitits, keyur leg lymph edema, anxiety History of Any Multi-Drug Resistant Organisms: None Reported Past Surgical History: Cholecystectomy, Hernia Repair Additional Past Surgical History / Comment(s): left achillies tendon repair 1974, umb hernia repair Past Anesthesia/Blood Transfusion Reactions: No Reported Reaction Past Psychological History: Anxiety Smoking Status: Former smoker Past Alcohol Use History: Heavy Past Drug Use History: None Reported - Past Family History Brother(s) Family Medical History: Pulmonary Embolus Additional Family Medical History / Comment(s): CABG Mother Family Medical History: COPD, Pneumonia Additional Family Medical History / Comment(s): non-smoker. at age 89 Father Family Medical History: Myocardial Infarction ([place]) Additional Family Medical History / Comment(s): smoker, mi - age 64 General Exam Limitations: no limitations General appearance: alert, in no apparent distress Respiratory exam: Present: normal lung sounds bilaterally. Absent: respiratory distress, wheezes, rales, rhonchi, stridor Cardiovascular Exam: Present: regular rate, normal rhythm, normal heart sounds. Absent: systolic murmur, diastolic murmur, rubs, gallop, clicks Extremities exam: Present: other (Left lower leg there is superficial sore noted there are pulses equal bilaterally there are multiple varicosities there is no active bleeding.) Course Vital Signs 07/21/23 07/21/23 07/21/23 06:36 06:46 07:24 Temperature 97.8 F Pulse Rate 104 H 102 H 105 H Respiratory 18 18 18 Rate Blood Pressure 102/44 143/70 120/93 O2 Sat by Pulse 96 97 96 Oximetry Medical Decision Making - Medical Decision Making Was pt. sent in by a medical professional or institution (, PA, SUBSTATION TECHNICIAN, urgent care, hospital, or fci...) When possible be specific @ -No Did you speak to anyone other than the patient for history (EMS, parent, family, police, friend...)? What history was obtained from this source @ -EMS prehospital complaint, treatment Did you review nursing and triage notes (agree or disagree)? Why? @ -I reviewed and agree with nursing and triage notes Were old charts reviewed (outside hosp., previous admission, EMS record, old EKG, old radiological studies, urgent care reports/EKG's, fci records)? Report findings @ -No old charts were reviewed Differential Diagnosis (chest pain, altered mental status, abdominal pain women, abdominal pain men, vaginal bleeding, weakness, fever, dyspnea, syncope, headache, dizziness, GI bleed, back pain, seizure, CVA, palpatations, mental health, musculoskeletal)? @ -Leg wound, ruptured varicose vein EKG interpreted by me (3pts min.). @ -None X-rays interpreted by me (1pt min.). @ -None done CT interpreted by me (1pt min.). @ -None done U/S interpreted by me (1pt. min.). @ -None done What testing was considered but not performed or refused? (CT, X-rays, U/S, labs)? Why? @ -None What meds were considered but not given or refused? Why? @ -None Did you discuss the management of the patient with other professionals (professionals i.e. , PA, SUBSTATION TECHNICIAN, lab, RT, psych nurse, social media project manager, escrow officer, teacher, medical information officer, rifle case repairer)? Give summary @ -No Was smoking cessation discussed for >3mins.? @ -No Was critical care preformed (if so, how long)? @ -No Were there social determinants of health that impacted care today? How? (Homelessness, low income, unemployed, alcoholism, drug addiction, transportation, low edu. Level, literacy, decrease access to med. care, [facility], rehab)? @ -No Was there de-escalation of care discussed even if they declined (Discuss DNR or withdrawal of care, Hospice)? DNR status @ -No What co-morbidities impacted this encounter? (DM, HTN, Smoking, COPD, CAD, Cancer, CVA, ARF, Chemo, Hep., AIDS, mental health diagnosis, sleep apnea, mor bid obesity)? @ -None Was patient admitted / discharged? Hospital course, mention meds given and route, prescriptions, significant lab abnormalities, going to OR and other pertinent info. @ -Discharged patient has no recurrent bleeding. Patient was wrapped and discharged in stable condition return parameters were discussed. Undiagnosed new problem with uncertain prognosis? @ -No Drug Therapy requiring intensive monitoring for toxicity (Heparin, Nitro, Insulin, Cardizem)? @ -No Were any procedures done? @ -No Diagnosis/symptom? @ -Ruptured varicose vein Acute, or Chronic, or Acute on Chronic? @ -Acute Uncomplicated (without systemic symptoms) or Complicated (systemic symptoms)? @ -Uncomplicated Side effects of treatment? @ -No Exacerbation, Progression, or Severe Exacerbation? @ -No Poses a threat to life or bodily function? How? (Chest pain, [place], [place], pneumonia, PE, COPD, DKA, ARF, appy, cholecystitis, CVA, Diverticulitis, Homicidal, Suicidal, threat to staff... and all critical care pts) @ -No Disposition Clinical Impression: Ruptured varicose vein Disposition: HOME SELF-CARE Condition: Stable Instructions (If sedation given, give patient instructions): Acute Wound Care (ED) Additional Instructions: Please return to the Emergency Department if symptoms worsen or any other concerns. Is patient prescribed a controlled substance at d/c from ED?: No Referrals: None,Stated [Primary Care Provider] - 1-2 days Time of Disposition: 08:26
[2023-07-21 10:11] VITALS: BP 127/70; PULSE 95; TEMP 97.6
== END 2023-07-21 10:11 | disposition home or self-care (01) ==
LOC: EC 06:35
DX: I83.892 Varicose veins of left lower extremity with other complications (principal); Z79.01 Long term (current) use of anticoagulants; Z79.899 Other long term (current) drug therapy; Z86.711 Personal history of pulmonary embolism; Z86.718 Personal history of other venous thrombosis and embolism; Z87.891 Personal history of nicotine dependence; Z90.49 Acquired absence of other specified parts of digestive tract
CPT/HCPCS: 99284

== ENCOUNTER 2025-05-02 04:21 | Observation (INO) | payer OTHER ==
[2025-05-02 04:30] LABS: Glucose,Whole Blood 253 mg/dL (70-110)
[2025-05-02 04:35] VITALS: TEMP 97.5
--- NOTE | 2025-05-02 04:42 | ED ---
General Adult HPI - General Chief complaint: Wound/Laceration Stated complaint: wound hemmorage Time Seen by Provider: 05/02/25 04:37 Source: EMS Mode of arrival: EMS Limitations: no limitations - History of Present Illness Initial comments: Patient is a 59-year-old gentleman past medical history of prior PE/DVT, presenting today for bleeding varicose vein near syncopal episode. Patient states that he was sitting at his computer and felt wetness and lightheadedness. He noticed a pool of blood below his left lower extremity. Patient stood up, felt lightheaded and fell to the ground. He did hit his head but did not lose consciousness. Denies dizziness, lightheadedness, headache, neck pain. Does currently baby aspirin daily. It was prescribed blood thinners however has not taken them for 3 years due to insurance issues. Also endorses generalized weakness, states that he has not been taking care of himself for the last 2 weeks. Has not been able to get up stairs to take a shower. Endorses bilateral lower extremity edema. - Related Data Home Medications Medication Instructions Recorded Confirmed Metoprolol Tartrate [Lopressor] 50 mg PO BID 11/02/19 11/02/19 Rivaroxaban [Xarelto] 20 mg PO HS 11/02/19 11/02/19 Previous Rx's Medication Instructions Recorded Acetaminophen Tab [Tylenol] 500 mg PO Q6HR PRN #20 tab 10/22/18 Aspirin 81 mg PO DAILY #30 chew 10/22/18 Atorvastatin [Lipitor] 20 mg PO DAILY #30 tab 10/22/18 Multivitamin,Therapeutic [Thera] 1 tab PO DAILY #30 tablet 10/22/18 Allergies Allergy/AdvReac Type Severity Reaction Status Date / Time No Known Allergies Allergy Verified 07/21/23 06:42 Review of Systems ROS Statement: Those systems with pertinent positive or pertinent negative responses have been documented in the HPI. ROS Other: All systems not noted in ROS Statement are negative. Past Medical History Past Medical History: Deep Vein Thrombosis (DVT), Pulmonary Embolus (PE) Additional Past Medical History / Comment(s): ex-smoker, seborrheic dermatitits, keyur leg lymph edema, anxiety History of Any Multi-Drug Resistant Organisms: None Reported Past Surgical History: Cholecystectomy, Hernia Repair Additional Past Surgical History / Comment(s): left achillies tendon repair 1974, umb hernia repair Past Anesthesia/Blood Transfusion Reactions: No Reported Reaction Past Psychological History: Anxiety Smoking Status: Former smoker Past Alcohol Use History: Heavy Past Drug Use History: None Reported - Past Family History Brother(s) Family Medical History: Pulmonary Embolus Additional Family Medical History / Comment(s): CABG Mother Family Medical History: COPD, Pneumonia Additional Family Medical History / Comment(s): non-smoker. at age 89 Father Family Medical History: Myocardial Infarction (SD) Additional Family Medical History / Comment(s): smoker, mi - age 64 General Exam Limitations: no limitations Course Vital Signs 05/02/25 05/02/25 05/02/25 04:30 04:44 04:58 Temperature 97.5 F L Pulse Rate 110 H 109 H 93 Respiratory 22 20 27 H Rate Blood Pressure 85/48 98/69 87/57 O2 Sat by Pulse 94 L 96 96 Oximetry 05/02/25 05/02/25 05/02/25 05:05 05:25 05:40 Temperature Pulse Rate 87 92 89 Respiratory 22 20 18 Rate Blood Pressure 101/70 107/62 94/45 O2 Sat by Pulse 98 98 98 Oximetry 05/02/25 06:38 Temperature Pulse Rate 80 Respiratory 18 Rate Blood Pressure 111/70 O2 Sat by Pulse 99 Oximetry EKG Findings - EKG Comments: EKG Findings:: Sinus tachycardia, rate 111 bpm intervals within acceptable limits, no significant ST elevations or depressions, no arrhythmia Medical Decision Making - Medical Decision Making Was pt. sent in by a medical professional or institution (, PA, AIR TRAFFIC SUPERVISOR, urgent care, hospital, or prison...) When possible be specific @ -[No] Did you speak to anyone other than the patient for history (EMS, parent, family, police, friend...)? What history was obtained from this source @ -[No] Did you review nursing and triage notes (agree or disagree)? Why? @ -[I reviewed nursing and triage notes] Were old charts reviewed (outside hosp., previous admission, EMS record, old EKG, old radiological studies, urgent care reports/EKG's, prison records)? Report findings @ -[Medical records reviewed] Differential Diagnosis (chest pain, altered mental status, abdominal pain women, abdominal pain men, vaginal bleeding, weakness, fever, dyspnea, syncope, headache, dizziness, GI bleed, back pain, seizure, CVA, palpatations, mental he alth, musculoskeletal)? @ -[not applicable] EKG interpreted by me (3pts min.). @ -[As above] X-rays interpreted by me (1pt min.). @ -[None done] CT interpreted by me (1pt min.). @ -[None done] U/S interpreted by me (1pt. min.). @ -[None done] What testing was considered but not performed or refused? (CT, X-rays, U/S, labs)? Why? @ -[None] What meds were considered but not given or refused? Why? @ -[None] Did you discuss the management of the patient with other professionals (professionals i.e. , PA, AIR TRAFFIC SUPERVISOR, lab, RT, psych nurse, social secretary, director of transportation, teacher, attendance officer, shoe caser)? Give summary @ -[No] Was smoking cessation discussed for >3mins.? @ -[No] Was critical care preformed (if so, how long)? @ -[No] Were there social determinants of health that impacted care today? How? ( Homelessness, low income, unemployed, alcoholism, drug addiction, transportation, low edu. Level, literacy, decrease access to med. care, halfway, rehab)? @ -[No] Was there de-escalation of care discussed even if they declined (Discuss DNR or withdrawal of care, Hospice)? @ -[No] What co-morbidities impacted this encounter? (DM, HTN, Smoking, COPD, CAD, Cancer, CVA, ARF, Chemo, Hep., AIDS, mental health diagnosis, sleep apnea, morbid obesity)? @ -[None] Was patient admitted / discharged? Hospital course, mention meds given and route, prescriptions, significant lab abnormalities, going to OR and other pertinent info. @ -[hospital course] this is a 59-year-old gentleman, past med history prior P E/DVT, noncompliant with medications presenting today for bleeding lower extremity varicose vein however on assessment patient is hypotensive, tachycardic pale and diaphoretic, endorses generalized weakness worsening over the last 2 weeks. Patient given 1 L LR, comprehensive labs obtained. Patient's previously bleeding varicose vein in his distal lower extremity is no longer bleeding. He estimates he lost about 200 to 300 cc of blood. Type and cross ordered. Patient's blood pressure improved with IV fluids.Labs significant for leukocytosis white blood cell count 18.86, lactic of 5.4, for this reason blood cultures were ordered, Rocephin ordered to cover for cellulitis given the 3 erythema of lower of lower extremities, patient is mild ACOSTA creatinine 1.5, troponin 0.027, BNP 1 and 55, hemoglobin is within normal limits at 13.2 though previously, last hemoglobin in our records is from 2021 when it was 17.1. Patient sitting pending CT PE study, ultrasound of the bilateral lower ext remities. CT PE study was nondiagnostic for PE. Currently pending ultrasound of lower extremities. Given elevated lactic of 5.4, hypotension tachycardia and L appearance on arrival along with patient's inability to care for himself at home currently will admit for sepsis and PT OT Undiagnosed new problem with uncertain prognosis? @ -[No] Drug Therapy requiring intensive monitoring for toxicity (Heparin, Nitro, Insulin, Cardizem)? @ -[No] Were any procedures done? @ -[No] Diagnosis/symptom? @ -[default] Acute, or Chronic, or Acute on Chronic? @ -[default] Uncomplicated (without systemic symptoms) or Complicated (systemic symptoms)? @ -[default] Side effects of treatment? @ -[No] Exacerbation, Progression, or Severe Exacerbation? @ -[No] Poses a threat to life or bodily function? How? (Chest pain, USA, SD, pneumonia, PE, COPD, DKA, ARF, appy, cholecystitis, CVA, Diverticulitis, Homicidal, Suicidal, threat to staff... and all critical care pts) @ -[No] - Lab Data Result diagrams: 05/02/25 04:39 05/02/25 04:39 Lab Results 05/02/25 05/02/25 05/02/25 Range/Units 04:27 04:38 04:39 WBC 18.86 H (4.50-10.00) 10*3/uL RBC 4.11 L (4.40-5.60) 10*6/uL Hgb 13.2 (13.0-17.0) g/dL Hct 39.7 (39.6-50.0) % MCV 96.6 (80.0-97.0) fL MCH 32.1 H (27.0-32.0) pg MCHC 33.2 (32.0-37.0) g/dL Plt Count 405 (140-440) 10*3/uL MPV 9.7 (9.5-12.2) fL Immature Gran % (Auto) 1.3 % Neutrophils % 68.3 % Lymphocytes % 20.9 % Monocytes % 6.4 % Eosinophils % 2.1 % Basophils % 1.0 % Immature Gran # 0.25 H (0.00-0.04) 10*3/uL Neutrophils # 12.89 H (1.80-7.70) 10*3/uL Lymphocytes # 3.95 (0.90-5.00) 10*3/uL Monocytes # 1.20 H (0.20-1.00) 10*3/uL Eosinophils # 0.39 H (0.04-0.35) 10*3/uL Basophils # 0.18 H (0.00-0.10) 10*3/uL PT 11.5 (10.0-12.5) sec INR 1.1 (<1.2) APTT 22.0 (22.0-30.0) sec Sodium (137-145) mmol/L Potassium (3.5-5.1) mmol/L Chloride (98-107) mmol/L Carbon Dioxide (22-30) mmol/L Anion Gap mmol/L BUN (9-20) mg/dL Creatinine (0.66-1.25) mg/dL Est GFR (CKD-EPI)AfAm (>60 ml/min/1.73 sqM) Est GFR (CKD-EPI)NonAf (>60 ml/min/1.73 sqM) Glucose (74-99) mg/dL POC Glucose (mg/dL) 253 H (70-110) mg/dL POC Glu Scrum Project Manager ID Steven Miller Plasma Lactic Acid Hermilo (0.7-2.0) mmol/L Calcium (8.4-10.2) mg/dL Magnesium (1.6-2.3) mg/dL Total Bilirubin (0.2-1.3) mg/dL AST (17-59) U/L ALT (4-49) U/L Alkaline Phosphatase (38-126) U/L Troponin I (0.000-0.034) ng/mL NT-Pro-B Natriuret Pep pg/mL Total Protein (6.3-8.2) g/dL Albumin (3.5-5.0) g/dL Blood Type Blood Type Recheck Bld Type Recheck Status Antibody Screen Spec Expiration Date 05/02/25 05/02/25 05/02/25 Range/Units 04:39 04:39 04:39 WBC (4.50-10.00) 10*3/uL RBC (4.40-5.60) 10*6/uL Hgb (13.0-17.0) g/dL Hct (39.6-50.0) % MCV (80.0-97.0) fL MCH (27.0-32.0) pg MCHC (32.0-37.0) g/dL Plt Count (140-440) 10*3/uL MPV (9.5-12.2) fL Immature Gran % (Auto) % Neutrophils % % Lymphocytes % % Monocytes % % Eosinophils % % Basophils % % Immature Gran # (0.00-0.04) 10*3/uL Neutrophils # (1.80-7.70) 10*3/uL Lymphocytes # (0.90-5.00) 10*3/uL Monocytes # (0.20-1.00) 10*3/uL Eosinophils # (0.04-0.35) 10*3/uL Basophils # (0.00-0.10) 10*3/uL PT (10.0-12.5) sec INR (<1.2) APTT (22.0-30.0) sec Sodium 139 (137-145) mmol/L Potassium 4.3 (3.5-5.1) mmol/L Chloride 108 H (98-107) mmol/L Carbon Dioxide 15 L (22-30) mmol/L Anion Gap 16 mmol/L BUN 27 H (9-20) mg/dL Creatinine 1.50 H (0.66-1.25) mg/dL Est GFR (CKD-EPI)AfAm 58 (>60 ml/min/1.73 sqM) Est GFR (CKD-EPI)NonAf 50 (>60 ml/min/1.73 sqM) Glucose 232 H (74-99) mg/dL POC Glucose (mg/dL) (70-110) mg/dL POC Glu Scrum Project Manager ID Plasma Lactic Acid Hermilo 5.4 H* (0.7-2.0) mmol/L Calcium 9.2 (8.4-10.2) mg/dL Magnesium 2.3 (1.6-2.3) mg/dL Total Bilirubin 0.4 (0.2-1.3) mg/dL AST 30 (17-59) U/L ALT 27 (4-49) U/L Alkaline Phosphatase 64 (38-126) U/L Troponin I 0.027 (0.000-0.034) ng/mL NT-Pro-B Natriuret Pep 155 pg/mL Total Protein 6.3 (6.3-8.2) g/dL Albumin 3.3 L (3.5-5.0) g/dL Blood Type Blood Type Recheck Bld Type Recheck Status Antibody Screen Spec Expiration Date 05/02/25 Range/Units 04:39 WBC (4.50-10.00) 10*3/uL RBC (4.40-5.60) 10*6/uL Hgb (13.0-17.0) g/dL Hct (39.6-50.0) % MCV (80.0-97.0) fL MCH (27.0-32.0) pg MCHC (32.0-37.0) g/dL Plt Count (140-440) 10*3/uL MPV (9.5-12.2) fL Immature Gran % (Auto) % Neutrophils % % Lymphocytes % % Monocytes % % Eosinophils % % Basophils % % Immature Gran # (0.00-0.04) 10*3/uL Neutrophils # (1.80-7.70) 10*3/uL Lymphocytes # (0.90-5.00) 10*3/uL Monocytes # (0.20-1.00) 10*3/uL Eosinophils # (0.04-0.35) 10*3/uL Basophils # (0.00-0.10) 10*3/uL PT (10.0-12.5) sec INR (<1.2) APTT (22.0-30.0) sec Sodium (137-145) mmol/L Potassium (3.5-5.1) mmol/L Chloride (98-107) mmol/L Carbon Dioxide (22-30) mmol/L Anion Gap mmol/L BUN (9-20) mg/dL Creatinine (0.66-1.25) mg/dL Est GFR (CKD-EPI)AfAm (>60 ml/min/1.73 sqM) Est GFR (CKD-EPI)NonAf (>60 ml/min/1.73 sqM) Glucose (74-99) mg/dL POC Glucose (mg/dL) (70-110) mg/dL POC Glu Scrum Project Manager ID Plasma Lactic Acid Hermilo (0.7-2.0) mmol/L Calcium (8.4-10.2) mg/dL Magnesium (1.6-2.3) mg/dL Total Bilirubin (0.2-1.3) mg/dL AST (17-59) U/L ALT (4-49) U/L Alkaline Phosphatase (38-126) U/L Troponin I (0.000-0.034) ng/mL NT-Pro-B Natriuret Pep pg/mL Total Protein (6.3-8.2) g/dL Albumin (3.5-5.0) g/dL Blood Type A Positive Blood Type Recheck A Pos Bld Type Recheck Status No Antibody Screen NEGATIVE Spec Expiration Date 05/05/20252338 Disposition Clinical Impression: Cellulitis, Generalized weakness, Severe sepsis Disposition: ADMITTED IP TO THIS [facility] Condition: Stable Referrals: None,Stated [Primary Care Provider] - 1-2 days
[2025-05-02 04:51] LABS: Basophils # (A) 0.18 10*3/uL (0.00-0.10); Eosinophils # (A) 0.39 10*3/uL (0.04-0.35); Eosinophils % (A) 2.1 %; HCT 39.7 % (39.6-50.0); HGB 13.2 g/dL (13.0-17.0); Lymphocytes # (A) 3.95 10*3/uL (0.90-5.00); Lymphocytes % (A) 20.9 %; MCH 32.1 pg (27.0-32.0); MCHC 33.2 g/dL (32.0-37.0); MCV 96.6 fL (80.0-97.0); Mean Platelet Volume 9.7 fL (9.5-12.2); Monocytes % (A) 6.4 %; Neutrophils # (A) 12.89 10*3/uL (1.80-7.70); Neutrophils % (A) 68.3 %; Platelet Count 405 10*3/uL (140-440); RBC 4.11 10*6/uL (4.40-5.60); WBC 18.86 10*3/uL (4.50-10.00)
[2025-05-02] MEDS: LACTATED RINGERS 1,000 ML IV ONE (04:51)
[2025-05-02 05:27] LABS: ALT 27 U/L (4-49); AST 30 U/L (17-59); African American GFR (CKD) 58 (>60 ml/min/1.73 sqM); Albumin 3.3 g/dL (3.5-5.0); Alkaline Phosphatase 64 U/L (38-126); Anion Gap 16 mmol/L; Blood Urea Nitrogen 27 mg/dL (9-20); Calcium 9.2 mg/dL (8.4-10.2); Carbon Dioxide 15 mmol/L (22-30); Chloride 108 mmol/L (98-107); Glucose 232 mg/dL (74-99); Magnesium 2.3 mg/dL (1.6-2.3); Non-African American GFR(CKD) 50 (>60 ml/min/1.73 sqM); Potassium 4.3 mmol/L (3.5-5.1); Sodium 139 mmol/L (137-145); Total Bilirubin 0.4 mg/dL (0.2-1.3); Total Protein 6.3 g/dL (6.3-8.2)
[2025-05-02 05:35] LABS: NT-Pro-B-Type Natriuretic Pept 155 pg/mL
[2025-05-02 05:45] LABS: INR 1.1 (<1.2); Prothrombin Time 11.5 sec (10.0-12.5)
--- NOTE | 2025-05-02 06:27 | CT ---
EXAMINATION TYPE: CT chest angio for PE DATE OF EXAM: 05/02/2025 COMPARISON: Prior CT chest December 31, 2018 CLINICAL INDICATION: Male, 59 years old with history of RUBINA, hx prior PE, chest pain, TECHNIQUE: CTA scan of the thorax is performed with IV Contrast, patient injected with 80 mL of Isovue 370, pulm onary embolism protocol. MIP Images are created on CT scanner and reviewed. CT DLP: 1537.6 mGycm. Automated Exposure Control for Dose Reduction was Utilized. FINDINGS: LUNGS: Suboptimal due to patient motion. There is mild left basilar linear scarring and/or atelectasi s. No suspicious focal consolidation. No pleural effusion or pneumothorax seen bilaterally. HEART: Size within normal limits. Mild coronary artery calcifications present. MEDIASTINUM: Suboptimal study with most dense contrast in the SVC. Exam is essentially nondiagnostic for acute pulmonary embolism. There are no greater than 1 cm hilar or mediastinal lymph nodes. No pericardial effusion is seen. OTHER: Cholecystectomy clips are seen. Left-sided gynecomastia is noted. IMPRESSION: 1. Exam is nondiagnostic for acute pulmonary embolism. 2. No suspicious acute pulmonary process. [facility], , 05/02/2025 6:25 AM
[2025-05-02] MEDS ORDERED: NALOXONE 0.4 MG/ML 1 ML VIAL IV PRN (07:35)
[2025-05-02] MEDS ORDERED: ACETAMINOPHEN TAB 325 MG TAB PO PRN (07:35)
[2025-05-02] MEDS ORDERED: bisacodyL 5 MG TABLET.DR PO PRN (07:35)
--- NOTE | 2025-05-02 08:27 | US ---
EXAMINATION TYPE: US venous doppler duplex LE BI DATE OF EXAM: 05/02/2025 8:13 AM COMPARISON: 09/08/2018 CLINICAL INDICATION: Male, 59 years old with history of RUBINA, hx prior PE; bilat calf pain x 2 weeks, bilat swelling x 15 years, hx of DVT& PE 2018, Lt varicose vein popped this AM , Pain TECHNIQUE: The lower extremity deep venous system is examined utilizing real time linear array sonog shantell with graded compression, color doppler sonography, and spectral doppler. SIDE PERFORMED: Bilateral FINDINGS: VESSELS IMAGED: Common Femoral Vein Deep Femoral Vein Greater Saphenous Vein * Femoral Vein Popliteal Vein Small Saphenous Vein * Proximal Calf Veins (* superficial vessels) limited visualization due to pt body habitus & severe edema Right Leg: appears negative for a DVT, Color Doppler imaging shows patency of the vessels. Spectral waveforms are within normal limits. Left Leg: appears negative for DVT, Color Doppler imaging shows patency of the vessels. Spectral wav eforms are within normal limits. IMPRESSION: 1. Ultrasound of the bilateral lower extremities negative for deep venous thrombosis. [facility], , 05/02/2025 8:24 AM
[2025-05-02] MEDS: FAMOTIDINE 20 MG TAB PO SCH (08:41)
[2025-05-02] MEDS: ENOXAPARIN 40 MG/0.4 ML SYRINGE SQ SCH (08:42)
[2025-05-02 12:45] VITALS: BP 107/62; PULSE 98; RESP 15
== END 2025-05-02 13:31 | disposition left against medical advice (07) ==
LOC: EC 04:21 → 5NMEDONC 07:37
PROVIDERS: ADMIT Student in an Organized Health Care Education/Training Program; ATTEND Student in an Organized Health Care Education/Training Program
DX: A41.9 Sepsis, unspecified organism (principal); L03.116 Cellulitis of left lower limb; R65.20 Severe sepsis without septic shock; F41.9 Anxiety disorder, unspecified; Z86.711 Personal history of pulmonary embolism; Z86.718 Personal history of other venous thrombosis and embolism; Z87.891 Personal history of nicotine dependence; Z79.01 Long term (current) use of anticoagulants; Z79.899 Other long term (current) drug therapy; Z53.29 Procedure and treatment not carried out because of patient's decision for other reasons
CPT/HCPCS: 96361; 96365; 96372; 99285; 36415; 93005; 86900; 86901; 83880; 80053; 83605; 83735; 84484; 85025; 85610; 85730; 86850; 87040; 93970; 71275; G0378; J0696; J1650; Q9967